=== PATIENT | female | born 1975 | race Caucasian/White ===

== ENCOUNTER 2018-01-27 10:54 | Emergency (ER) | payer MEDICARE, OTHER, SELFPAY ==
[2018-01-27 11:00] VITALS: BP 136/109; PULSE 104; RESP 20; TEMP 37; O2SAT 99
--- NOTE | 2018-01-27 11:25 | ED.URI ---
HPI - URI/Sore Throat General Chief Complaint: Upper Respiratory Symptoms Stated Complaint: RT FACE AND NECK PAIN, THINKS DEHYDRATED Time Seen by Provider: 01/27/18 11:08 Source: patient Mode of arrival: ambulatory Limitations: no limitations History of Present Illness HPI Narrative: Patient is a 42-year-old female who presents with right-sided neck pain. She has a history of multiple sclerosis and diabetes. She says that she has had some swelling in her face and passed out 1 time she had a high white count and was admitted with IV antibiotics and other time. She denies any sore throat or ear pain no dental pain. She has not had fever but she says she does make fever. Related Data Previous Rx's Medication Instructions Recorded clindamycin HCl 300 mg PO TID #21 cap 01/27/18 ibuprofen 800 mg PO Q8H PRN #30 tab 01/27/18 Allergies Allergy/AdvReac Type Severity Reaction Status Date / Time red (food color) Allergy Verified 01/27/18 11:11 Sulfa (Sulfonamide Allergy Verified 01/27/18 11:11 Antibiotics) artificial sweetners Allergy Uncoded 01/27/18 11:11 Review of Systems Review of Systems All systems reviewed & are unremarkable except as noted in HPI and below Constitutional Denies body ache(s), Denies chills, Reports fatigue and Denies fever(s) ENT Ears, Nose, Mouth, and Throat: Reports as per HPI, Reports facial pain (Mild right-sided swelling) and Reports sore throat Cardiovascular Denies chest pain, Denies irregular heart rhythm, Denies lightheadedness, Denies palpitations, Denies dyspnea, Denies dyspnea on exertion and Denies orthopnea Respiratory Denies cough, Denies dyspnea, Denies dyspnea on exertion and Denies wheezing Gastrointestinal Gastrointestinal: Denies abdominal pain, Denies change in bowel habits, Denies diarrhea, Denies nausea and Denies vomiting Musculoskeletal Denies back pain, Denies muscle weakness, Denies numbness and Denies tingling Integumentary/Breasts Denies pruritus, Denies erythema, Denies rash and Denies wounds Neurologic Denies numbness and Denies tingling Endocrine Reports fatigue and Denies palpitations Allergic/Immunologic Denies wheezing [facility] Medical History Chronically low serum potassium (Acute) Diabetes (Acute) Fibromyalgia (Acute) Low sodium levels (Acute) Low vitamin D level (Acute) Multiple sclerosis (Acute) Social History Smoking Status: Never smoker Exam Initial Vital Signs Initial Vital Signs: Vital Signs Temperature 98.6 F 01/27/18 11:00 Pulse Rate 104 H 01/27/18 11:00 Respiratory Rate 20 01/27/18 11:00 Blood Pressure 136/109 H 01/27/18 11:00 Pulse Oximetry 99 01/27/18 11:00 GENERAL: Well-appearing, well-nourished and in no acute distress. HEENT: Head atraumatic,EOMI, pupils reactive, mild right-sided facial swelling no erythema no dental caries or cavities no dental abscess PHARYNX: Mild erythema in no uvula deviation no swelling airway patent CARDIOVASCULAR: Regular rate and rhythm without murmurs, rubs or gallops. RESPIRATORY: Breath sounds equal bilaterally, no wheezes rales or rhonchi. ABDOMEN: Soft, nontender. Normoactive bowel sounds all 4 quadrants. No guarding or rebound. EXTREMITIES: Normal range of motion, no clubbing or edema. Neurovascularly intact NEUROLOGICAL: Alert and oriented x4.Normal gait and speech. Cranial nerves II through XII grossly intact. SKIN: Warm, dry, no laceration, no petechiae, no rashes or lesions. Course Orders Ordered: ED Orders 01/27/18 11:40 Basic Metabolic Panel Stat Complete Blood Count AUTO DIFF Stat Lactate (Lactic Acid) Stat 01/27/18 12:25 Urinalysis and Microscopic Stat Discontinued Medications Sodium Chloride (Normal Saline 0.9%) 1,000 mls @ 1,000 mls/hr IV BOLUS ONE Stop: 01/27/18 12:29 Last Infusion: 01/27/18 13:18 Dose: 0 mls/hr Admin: 01/27/18 11:50 Dose: 1,000 mls/hr Vital Signs - 8 hr 01/27/18 11:00 01/27/18 12:14 01/27/18 12:30 Temperature 98.6 F Pulse Rate 104 H 97 H 94 H Respiratory Rate 20 16 Blood Pressure 136/109 H Blood Pressure [Right Arm] 121/85 139/86 Pulse Oximetry 99 97 100 01/27/18 13:43 01/27/18 13:57 Temperature Pulse Rate 96 H 96 H Respiratory Rate 14 Blood Pressure 138/91 H Blood Pressure [Right Arm] 138/91 H Pulse Oximetry 98 97 MDM - URI/Sore Throat Lab Data Attestation: I reviewed the patient's lab results. Result diagrams: 01/27/18 11:40 01/27/18 11:40 Lab Results 01/27/18 01/27/18 01/27/18 Range/Units 11:40 11:40 11:40 WBC 9.6 (4.5-11.0) X10^3/uL RBC 5.13 (4.0-5.2) X10^6/uL Hgb 14.6 (12.0-16.0) g/dL Hct 43.1 (36-46) % MCV 84.0 (80-100) fL MCH 28.4 (26-34) PG MCHC 33.8 (30-36) % RDW 15.4 H (11.6-14.8) % Plt Count 320 (150-400) X10^3/uL Neut % (Auto) 48.6 L (50-75) % Lymph % (Auto) 43.4 H (25-40) % [place] % (Auto) 4.8 (3-14) % Eos % (Auto) 2.2 (2-4) % Baso % (Auto) 1.0 (0-2) % Neut # (Auto) 4700 (2960-1527) /uL Sodium 139 (137-145) mmol/L Potassium 3.8 (3.4-5.1) mmol/L Chloride 107 (98-107) mmol/L Carbon Dioxide 21 L (22-32) mmol/L BUN 11 (7-17) mg/dL Creatinine 0.50 L (0.52-1.04) mg/dL Estimated GFR > 60.0 (>60) mL/min BUN/Creatinine Ratio 22.0 (6-22) Glucose 236 H (70-100) mg/dL Lactate 2.6 H (0.7-2.1) mmol/L Calcium 8.8 (8.4-10.2) mg/dL Urine Color Urine Appearance Urine pH (4.5-8.0) Ur Specific [place] (1.000-1.035) Urine Protein (Negative) Urine Glucose (UA) (Normal) g/dL Urine Ketones (NEGATIVE) Urine Occult Blood (Negative) Urine Nitrate (Negative) Urine Bilirubin (NEGATIVE) Urine Urobilinogen (0.2) E.U./dL Ur Leukocyte Esterase (NEGATIVE) Urine RBC (0-5/HPF) Urine WBC (0-5/HPF) Ur Squamous Epith Cells Urine Bacteria (None) Ur Culture Indicated? Micro UA Comment 01/27/18 Range/Units 12:25 WBC (4.5-11.0) X10^3/uL RBC (4.0-5.2) X10^6/uL Hgb (12.0-16.0) g/dL Hct (36-46) % MCV (80-100) fL MCH (26-34) PG MCHC (30-36) % RDW (11.6-14.8) % Plt Count (150-400) X10^3/uL Neut % (Auto) (50-75) % Lymph % (Auto) (25-40) % [place] % (Auto) (3-14) % Eos % (Auto) (2-4) % Baso % (Auto) (0-2) % Neut # (Auto) (8195-8571) /uL Sodium (137-145) mmol/L Potassium (3.4-5.1) mmol/L Chloride (98-107) mmol/L Carbon Dioxide (22-32) mmol/L BUN (7-17) mg/dL Creatinine (0.52-1.04) mg/dL Estimated GFR (>60) mL/min BUN/Creatinine Ratio (6-22) Glucose (70-100) mg/dL Lactate (0.7-2.1) mmol/L Calcium (8.4-10.2) mg/dL Urine Color Yellow Urine Appearance Clear Urine pH 6.0 (4.5-8.0) Ur Specific [place] 1.025 (1.000-1.035) Urine Protein Negative (Negative) Urine Glucose (UA) 2+ (Normal) g/dL Urine Ketones Trace H (NEGATIVE) Urine Occult Blood Negative (Negative) Urine Nitrate Negative (Negative) Urine Bilirubin Negative (NEGATIVE) Urine Urobilinogen 0.2 (0.2) E.U./dL Ur Leukocyte Esterase Negative (NEGATIVE) Urine RBC None seen (0-5/HPF) Urine WBC 1-5/hpf (0-5/HPF) Ur Squamous Epith Cells 5-10 /hpf H Urine Bacteria None seen (None) Ur Culture Indicated? Cult not indicated Micro UA Comment Not Reportable Point of Care Testing Rapid Strep A Negative MDM Narrative Medical decision making narrative: Patient this time has a normal WBC count slightly elevated lactic acid but she is given 1 L of fluid. She does not appear toxic or septic at this time. I do not think at this time she needs any soft tissue imaging however if the swelling gets to be significantly worse she should return. Not convinced that she needs an antibiotic at this time I recommended that she hold off for a few days however I did give her prescription. Discharge Plan Departure Patient Disposition: Home Clinical Impression: Acute parotitis Discharge Date/Time: 01/27/18 13:59 Interventions: ED Discharge Assessment Last Done: 01/27/18 13:57 Instructions: Parotitis Activity Restrictions/Additional Instructions: *You have been diagnosed with prostatitis *What to do: At this time I would hold off on antibiotics for the next 2-3 days however the symptoms seem to get a little worse he may start *Continue to take medications as directed Clindamycin 300 mg 4 times a day for 7 days *Follow up with your primary care provider in 2-3 days *Return to ER if you should have increased swelling of face difficulty breathing, difficulty swallowing or any new, worsening or concerning symptoms Prescriptions: New clindamycin HCl 300 mg capsule 300 mg PO TID Qty: 21 RF: 0 ibuprofen 800 mg tablet 800 mg PO Q8H PRN (Reason: pain) Qty: 30 RF: 0 Referrals: Cedric Noel DO [Primary Care Provider] -
[2018-01-27] MEDS: SODIUM CHLORIDE 0.9% 1,000 ML 1000 ML IV (11:50)
[2018-01-27 11:55] LABS: Add Manual Diff / Slide Review NO; Eosinophils Percent Auto 2.2 % (2-4); Hematocrit 43.1 % (36-46); Hemoglobin 14.6 g/dL (12.0-16.0); Lymphocytes Percent Auto 43.4 % (25-40); Mean Corpuscular HGB Conc 33.8 % (30-36); Mean Corpuscular Hemoglobin 28.4 PG (26-34); Monocytes Percent Auto 4.8 % (3-14); Neutrophils Absolute Auto 4700 /uL (3000-5900); Neutrophils Percent Auto 48.6 % (50-75); Platelet Count 320 X10^3/uL (150-400); Red Blood Cell Count 5.13 X10^6/uL (4.0-5.2); Red Cell Distribution Width 15.4 % (11.6-14.8); White Blood Cell Count 9.6 X10^3/uL (4.5-11.0)
[2018-01-27 12:04] LABS: Blood Urea Nitrogen 11 mg/dL (7-17); Calcium 8.8 mg/dL (8.4-10.2); Carbon Dioxide 21 mmol/L (22-32); Chloride 107 mmol/L (98-107); Estimated Glomerular Filt Rate > 60.0 mL/min (>60); Glucose 236 mg/dL (70-100); HEMOLYSIS 44 (0-50); Lactate (Lactic Acid) 2.6 mmol/L (0.7-2.1); Potassium 3.8 mmol/L (3.4-5.1); Sodium 139 mmol/L (137-145)
--- NOTE | 2018-01-27 12:11 | PC.NURSE ---
Pt is swollen on right side of jaw. Reports this isn't normal for the jaw.
[2018-01-27 12:14] VITALS: BP 121/85; PULSE 97; RESP 16; O2SAT 97
[2018-01-27 12:28] LABS: Bacteria Urine None Seen; RBC Urine None Seen (0-5/HPF)
[2018-01-27 12:29] LABS: Appearance Urine UA CLEAR; Bilirubin Urine UA NEGATIVE (NEGATIVE); Color Urine UA YELLOW; Glucose Urine UA 2+ g/dL (Normal); Ketones Urine UA TRACE (NEGATIVE); Leukocyte Esterase Urine UA NEGATIVE (NEGATIVE); Nitrite Urine UA NEGATIVE (Negative); Occult Blood Urine UA NEGATIVE (Negative); Protein Urine UA NEGATIVE (Negative); Specific Gravity Urine UA 1.025 (1.000-1.035); Urobilinogen Urine UA 0.2 E.U./dL (0.2)
[2018-01-27 12:30] VITALS: BP 139/86; PULSE 94; O2SAT 100
[2018-01-27 12:37] LABS: Culture Indicated Urine Cult Not Indicated; Squamous Epithelial Cell Urine 5-10 /HPF; WBC Urine 1-5/HPF (0-5/HPF)
--- NOTE | 2018-01-27 13:03 | ED_ITS ---
HPI - URI/Sore Throat General Chief Complaint: Upper Respiratory Symptoms Stated Complaint: RT FACE AND NECK PAIN, THINKS DEHYDRATED Time Seen by Provider: 01/27/18 11:08 Source: patient Mode of arrival: ambulatory Limitations: no limitations History of Present Illness HPI Narrative: Patient is a 42-year-old female who presents with right-sided neck pain. She has a history of multiple sclerosis and diabetes. She says that she has had some swelling in her face and passed out 1 time she had a high white count and was admitted with IV antibiotics and other time. She denies any sore throat or ear pain no dental pain. She has not had fever but she says she does make fever. Related Data Previous Rx's Medication Instructions Recorded clindamycin HCl 300 mg PO TID #21 cap 01/27/18 ibuprofen 800 mg PO Q8H PRN #30 tab 01/27/18 Allergies Allergy/AdvReac Type Severity Reaction Status Date / Time red (food color) Allergy Verified 01/27/18 11:11 Sulfa (Sulfonamide Allergy Verified 01/27/18 11:11 Antibiotics) artificial sweetners Allergy Uncoded 01/27/18 11:11 Review of Systems Review of Systems All systems reviewed & are unremarkable except as noted in HPI and below Constitutional Denies body ache(s), Denies chills, Reports fatigue and Denies fever(s) ENT Ears, Nose, Mouth, and Throat: Reports as per HPI, Reports facial pain (Mild right-sided swelling) and Reports sore throat Cardiovascular Denies chest pain, Denies irregular heart rhythm, Denies lightheadedness, Denies palpitations, Denies dyspnea, Denies dyspnea on exertion and Denies orthopnea Respiratory Denies cough, Denies dyspnea, Denies dyspnea on exertion and Denies wheezing Gastrointestinal Gastrointestinal: Denies abdominal pain, Denies change in bowel habits, Denies diarrhea, Denies nausea and Denies vomiting Musculoskeletal Denies back pain, Denies muscle weakness, Denies numbness and Denies tingling Integumentary/Breasts Denies pruritus, Denies erythema, Denies rash and Denies wounds Neurologic Denies numbness and Denies tingling Endocrine Reports fatigue and Denies palpitations Allergic/Immunologic Denies wheezing [facility] Medical History Chronically low serum potassium (Acute) Diabetes (Acute) Fibromyalgia (Acute) Low sodium levels (Acute) Low vitamin D level (Acute) Multiple sclerosis (Acute) Social History Smoking Status: Never smoker Exam Initial Vital Signs Initial Vital Signs: Vital Signs Temperature 98.6 F 01/27/18 11:00 Pulse Rate 104 H 01/27/18 11:00 Respiratory Rate 20 01/27/18 11:00 Blood Pressure 136/109 H 01/27/18 11:00 Pulse Oximetry 99 01/27/18 11:00 GENERAL: Well-appearing, well-nourished and in no acute distress. HEENT: Head atraumatic,EOMI, pupils reactive, mild right-sided facial swelling no erythema no dental caries or cavities no dental abscess PHARYNX: Mild erythema in no uvula deviation no swelling airway patent CARDIOVASCULAR: Regular rate and rhythm without murmurs, rubs or gallops. RESPIRATORY: Breath sounds equal bilaterally, no wheezes rales or rhonchi. ABDOMEN: Soft, nontender. Normoactive bowel sounds all 4 quadrants. No guarding or rebound. EXTREMITIES: Normal range of motion, no clubbing or edema. Neurovascularly intact NEUROLOGICAL: Alert and oriented x4.Normal gait and speech. Cranial nerves II through XII grossly intact. SKIN: Warm, dry, no laceration, no petechiae, no rashes or lesions. Course Orders Ordered: ED Orders 01/27/18 11:40 Basic Metabolic Panel Stat Complete Blood Count AUTO DIFF Stat Lactate (Lactic Acid) Stat 01/27/18 12:25 Urinalysis and Microscopic Stat Discontinued Medications Sodium Chloride (Normal Saline 0.9%) 1,000 mls @ 1,000 mls/hr IV BOLUS ONE Stop: 01/27/18 12:29 Last Infusion: 01/27/18 13:18 Dose: 0 mls/hr Admin: 01/27/18 11:50 Dose: 1,000 mls/hr Vital Signs - 8 hr 01/27/18 11:00 01/27/18 12:14 01/27/18 12:30 Temperature 98.6 F Pulse Rate 104 H 97 H 94 H Respiratory Rate 20 16 Blood Pressure 136/109 H Blood Pressure [Right Arm] 121/85 139/86 Pulse Oximetry 99 97 100 01/27/18 13:43 01/27/18 13:57 Temperature Pulse Rate 96 H 96 H Respiratory Rate 14 Blood Pressure 138/91 H Blood Pressure [Right Arm] 138/91 H Pulse Oximetry 98 97 MDM - URI/Sore Throat Lab Data Attestation: I reviewed the patient's lab results. Result diagrams: 01/27/18 11:40 01/27/18 11:40 Lab Results 01/27/18 01/27/18 01/27/18 Range/Units 11:40 11:40 11:40 WBC 9.6 (4.5-11.0) X10^3/uL RBC 5.13 (4.0-5.2) X10^6/uL Hgb 14.6 (12.0-16.0) g/dL Hct 43.1 (36-46) % MCV 84.0 (80-100) fL MCH 28.4 (26-34) PG MCHC 33.8 (30-36) % RDW 15.4 H (11.6-14.8) % Plt Count 320 (150-400) X10^3/uL Neut % (Auto) 48.6 L (50-75) % Lymph % (Auto) 43.4 H (25-40) % [place] % (Auto) 4.8 (3-14) % Eos % (Auto) 2.2 (2-4) % Baso % (Auto) 1.0 (0-2) % Neut # (Auto) 4700 (3886-7270) /uL Sodium 139 (137-145) mmol/L Potassium 3.8 (3.4-5.1) mmol/L Chloride 107 (98-107) mmol/L Carbon Dioxide 21 L (22-32) mmol/L BUN 11 (7-17) mg/dL Creatinine 0.50 L (0.52-1.04) mg/dL Estimated GFR > 60.0 (>60) mL/min BUN/Creatinine Ratio 22.0 (6-22) Glucose 236 H (70-100) mg/dL Lactate 2.6 H (0.7-2.1) mmol/L Calcium 8.8 (8.4-10.2) mg/dL Urine Color Urine Appearance Urine pH (4.5-8.0) Ur Specific [place] (1.000-1.035) Urine Protein (Negative) Urine Glucose (UA) (Normal) g/dL Urine Ketones (NEGATIVE) Urine Occult Blood (Negative) Urine Nitrate (Negative) Urine Bilirubin (NEGATIVE) Urine Urobilinogen (0.2) E.U./dL Ur Leukocyte Esterase (NEGATIVE) Urine RBC (0-5/HPF) Urine WBC (0-5/HPF) Ur Squamous Epith Cells Urine Bacteria (None) Ur Culture Indicated? Micro UA Comment 01/27/18 Range/Units 12:25 WBC (4.5-11.0) X10^3/uL RBC (4.0-5.2) X10^6/uL Hgb (12.0-16.0) g/dL Hct (36-46) % MCV (80-100) fL MCH (26-34) PG MCHC (30-36) % RDW (11.6-14.8) % Plt Count (150-400) X10^3/uL Neut % (Auto) (50-75) % Lymph % (Auto) (25-40) % [place] % (Auto) (3-14) % Eos % (Auto) (2-4) % Baso % (Auto) (0-2) % Neut # (Auto) (1407-3769) /uL Sodium (137-145) mmol/L Potassium (3.4-5.1) mmol/L Chloride (98-107) mmol/L Carbon Dioxide (22-32) mmol/L BUN (7-17) mg/dL Creatinine (0.52-1.04) mg/dL Estimated GFR (>60) mL/min BUN/Creatinine Ratio (6-22) Glucose (70-100) mg/dL Lactate (0.7-2.1) mmol/L Calcium (8.4-10.2) mg/dL Urine Color Yellow Urine Appearance Clear Urine pH 6.0 (4.5-8.0) Ur Specific [place] 1.025 (1.000-1.035) Urine Protein Negative (Negative) Urine Glucose (UA) 2+ (Normal) g/dL Urine Ketones Trace H (NEGATIVE) Urine Occult Blood Negative (Negative) Urine Nitrate Negative (Negative) Urine Bilirubin Negative (NEGATIVE) Urine Urobilinogen 0.2 (0.2) E.U./dL Ur Leukocyte Esterase Negative (NEGATIVE) Urine RBC None seen (0-5/HPF) Urine WBC 1-5/hpf (0-5/HPF) Ur Squamous Epith Cells 5-10 /hpf H Urine Bacteria None seen (None) Ur Culture Indicated? Cult not indicated Micro UA Comment Not Reportable Point of Care Testing Rapid Strep A Negative MDM Narrative Medical decision making narrative: Patient this time has a normal WBC count slightly elevated lactic acid but she is given 1 L of fluid. She does not appear toxic or septic at this time. I do not think at this time she needs any soft tissue imaging however if the swelling gets to be significantly worse she should return. Not convinced that she needs an antibiotic at this time I recommended that she hold off for a few days however I did give her prescription. Discharge Plan Departure Patient Disposition: Home Clinical Impression: Acute parotitis Discharge Date/Time: 01/27/18 13:59 Interventions: ED Discharge Assessment Last Done: 01/27/18 13:57 Instructions: Parotitis Activity Restrictions/Additional Instructions: *You have been diagnosed with prostatitis *What to do: At this time I would hold off on antibiotics for the next 2-3 days however the symptoms seem to get a little worse he may start *Continue to take medications as directed Clindamycin 300 mg 4 times a day for 7 days *Follow up with your primary care provider in 2-3 days *Return to ER if you should have increased swelling of face difficulty breathing , difficulty swallowing or any new, worsening or concerning symptoms Prescriptions: New clindamycin HCl 300 mg capsule 300 mg PO TID Qty: 21 RF: 0 ibuprofen 800 mg tablet 800 mg PO Q8H PRN (Reason: pain) Qty: 30 RF: 0 Referrals: Cedric Noel DO [Primary Care Provider] -
[2018-01-27 13:43] VITALS: BP 138/91; PULSE 96; O2SAT 98
[2018-01-27 13:57] VITALS: BP 138/91; PULSE 96; RESP 14; O2SAT 97
[2018-01-27 15:50] LABS: Reflexed Lactate in 2 Hours Y
== END 2018-01-27 13:59 | disposition home or self-care (01) ==
PROVIDERS: Emergency Provider Emergency Medicine; Family Provider Family Medicine; PCP Family Medicine
DX: K11.21 Acute sialoadenitis (principal)
CPT/HCPCS: 36591; 80048; 81001; 83605; 85025; 87880; 96360; 99283; 99284

== ENCOUNTER 2018-02-06 16:57 | Inpatient (IN) | payer MEDICARE, OTHER, SELFPAY ==
[2018-02-06 17:09] VITALS: BP 157/97; PULSE 113; RESP 20; TEMP 37; O2SAT 98
--- NOTE | 2018-02-06 19:04 | ED.SKABFB ---
HPI - Skin/Abscess/Foreign Bdy General Chief complaint: Skin/Abscess/Foreign Body Stated complaint: ORAL PAIN AND SWELLING Time Seen by Provider: 02/06/18 18:18 Source: patient Mode of arrival: ambulatory Limitations: no limitations History of Present Illness HPI narrative: patient is a 42-year-old female with a history of diabetes seen here in the emergency department a couple days ago for right-sided facial swelling. Was diagnosed with parotitis. Was sent home on antibiotics. she states that she has taken those antibiotics as directed. Follow up with her primary care doctor today. She noticed that the swelling the right side of her face was worsening in her primary doctor recommended a CT scan. She came here for this CT scan and further evaluation. Patient has had this issue in 2015. she stated that it resolved after antibiotics. Related Data Previous Rx's Medication Instructions Recorded clindamycin HCl 300 mg PO TID #21 cap 01/27/18 ibuprofen 800 mg PO Q8H PRN #30 tab 01/27/18 Allergies Allergy/AdvReac Type Severity Reaction Status Date / Time red (food color) Allergy Verified 01/27/18 11:11 Sulfa (Sulfonamide Allergy Verified 01/27/18 11:11 Antibiotics) artificial sweetners Allergy Uncoded 01/27/18 11:11 Review of Systems Constitutional Reports fever(s), Denies headache(s), Denies lethargy and Denies malaise Eyes Denies blurry vision and Denies diplopia ENT Ears, Nose, Mouth, and Throat: Denies vertigo, Denies headache(s), Reports mouth pain, Reports neck mass, Reports neck pain, Denies nose pain, Denies post nasal drip, Denies sinus pain, Denies sinus pressure, Denies sore throat, Reports throat swelling and Denies tongue swelling Cardiovascular Denies chest pain and Denies dyspnea Respiratory Denies cough and Denies dyspnea Musculoskeletal Denies myalgias, Denies arthralgias and Reports neck pain Integumentary/Breasts Denies lesions and Denies rash Neurologic Denies vertigo and Denies headache(s) Endocrine Denies flushing, Denies polydipsia and Denies polyuria Hematologic/Lymphatic Comments: Not on anticoagulation Allergic/Immunologic Denies urticaria, Reports throat swelling and Denies tongue swelling [facility] Medical History Chronically low serum potassium (Acute) Diabetes (Acute) Fibromyalgia (Acute) Low sodium levels (Acute) Low vitamin D level (Acute) Multiple sclerosis (Acute) Surgical History No pertinent past surgical history (Acute) Social History marital status: Smoking Status: Never smoker Exam Initial Vital Signs Initial Vital Signs: Vital Signs Temperature 98.6 F 02/06/18 17:09 Pulse Rate 113 H 02/06/18 17:09 Respiratory Rate 20 02/06/18 17:09 Blood Pressure 157/97 H 02/06/18 17:09 Pulse Oximetry 98 02/06/18 17:09 Const General: cooperative, healthy appearing, comfortable, well developed, well groomed and No acute distress Orientation: alert, awake and oriented x3 HENMT Head: normal to inspection, normocephalic and atraumatic Ears: hearing grossly normal bilaterally Nose: external nose normal Face and sinus: tenderness on the right and other ( patient with swelling and tenderness over the right parotid gland. No overlying skin cellulitis.) Mouth: oral mucosae normal and tongue normal Teeth and gingiva: dentition normal Resp Effort & Inspection: normal respiratory effort Auscultation: clear to auscultation bilaterally Cardio Rate: tachycardic Rhythm: regular rhythm GI Inspection: non-distended Skin Lesions: no lesions Rashes: no rashes Neuro General: alert, awake and oriented x3 Cognition: normal cognition Speech: speech normal Extrem General: normal to inspection and capillary refill normal Psych Appearance: grossly normal and well kempt Course Orders Ordered: ED Orders 02/06/18 19:11 CT facial bones w con Stat 02/06/18 19:30 Basic Metabolic Panel Stat C-Reactive Protein Quant Stat Complete Blood Count AUTO DIFF Stat Erythrocyte Sedimentation Rate Stat Lactate (Lactic Acid) Stat Procalcitonin Stat 02/06/18 20:40 Blood Culture Stat Sodium Chloride (Normal Saline 0.9%) 2,340.54 mls @ 780.18 mls/hr 30 ml/kg infuse over 3 hr (2340.54 ml) IV CONT YULIANA Vancomycin HCl/Dextrose (Vancomycin) 1,000 mg in 200 mls @ 200 mls/hr IV NOW ONE Stop: 02/06/18 21:53 Metronidazole (Flagyl) 500 mg in 100 mls @ 100 mls/hr IV NOW ONE Stop: 02/06/18 21:53 Last Admin: 02/06/18 21:03 Dose: 100 mls/hr Discontinued Medications Diphenhydramine HCl (Benadryl) 50 mg IV NOW ONE Stop: 02/06/18 19:14 Last Admin: 02/06/18 19:43 Dose: 50 mg Hydrocortisone (Solu-Cortef) 100 mg IV NOW ONE Stop: 02/06/18 19:14 Last Admin: 02/06/18 19:43 Dose: 100 mg Sodium Chloride (Normal Saline 0.9%) 1,000 mls @ 1,000 mls/hr IV BOLUS ONE Stop: 02/06/18 20:10 Last Admin: 02/06/18 19:43 Dose: 1,000 mls/hr Vital Signs - 8 hr 02/06/18 17:09 02/06/18 20:17 02/06/18 21:16 Temperature 98.6 F 98.2 F Pulse Rate 113 H 106 H 101 H Respiratory Rate 20 15 16 Blood Pressure 157/97 H Blood Pressure [Left Arm] 151/100 H 143/96 H Pulse Oximetry 98 100 100 MDM - Skin/Abscess/Foreign Bdy Lab Data Attestation: I reviewed the patient's lab results. Result diagrams: 02/06/18 19:30 02/06/18 19:30 Lab Results 02/06/18 02/06/18 02/06/18 Range/Units 19:30 19:30 19:30 WBC 11.8 H (4.5-11.0) X10^3/uL RBC 4.98 (4.0-5.2) X10^6/uL Hgb 13.9 (12.0-16.0) g/dL Hct 42.3 (36-46) % MCV 84.9 (80-100) fL MCH 27.9 (26-34) PG MCHC 32.9 (30-36) % RDW 15.5 H (11.6-14.8) % Plt Count 304 (150-400) X10^3/uL Neut % (Auto) 52.6 (50-75) % Lymph % (Auto) 40.3 H (25-40) % [place] % (Auto) 4.5 (3-14) % Eos % (Auto) 1.8 L (2-4) % Baso % (Auto) 0.8 (0-2) % Neut # (Auto) 6200 H (2429-9146) /uL ESR 25 H (0-20) MM/HR Sodium 140 (137-145) mmol/L Potassium 3.8 (3.4-5.1) mmol/L Chloride 105 (98-107) mmol/L Carbon Dioxide 19 L (22-32) mmol/L BUN 12 (7-17) mg/dL Creatinine 0.60 (0.52-1.04) mg/dL Estimated GFR > 60.0 (>60) mL/min BUN/Creatinine Ratio 20.0 (6-22) Glucose 325 H (70-100) mg/dL Lactate (0.7-2.1) mmol/L Calcium 9.2 (8.4-10.2) mg/dL C-Reactive Protein 0.9 (<1.0) mg/dL Procalcitonin < 0.05 (<0.5) ng/mL 02/06/18 Range/Units 19:30 WBC (4.5-11.0) X10^3/uL RBC (4.0-5.2) X10^6/uL Hgb (12.0-16.0) g/dL Hct (36-46) % MCV (80-100) fL MCH (26-34) PG MCHC (30-36) % RDW (11.6-14.8) % Plt Count (150-400) X10^3/uL Neut % (Auto) (50-75) % Lymph % (Auto) (25-40) % [place] % (Auto) (3-14) % Eos % (Auto) (2-4) % Baso % (Auto) (0-2) % Neut # (Auto) (5766-6108) /uL ESR (0-20) MM/HR Sodium (137-145) mmol/L Potassium (3.4-5.1) mmol/L Chloride (98-107) mmol/L Carbon Dioxide (22-32) mmol/L BUN (7-17) mg/dL Creatinine (0.52-1.04) mg/dL Estimated GFR (>60) mL/min BUN/Creatinine Ratio (6-22) Glucose (70-100) mg/dL Lactate 3.3 H (0.7-2.1) mmol/L Calcium (8.4-10.2) mg/dL C-Reactive Protein (<1.0) mg/dL Procalcitonin (<0.5) ng/mL Imaging Data Facial CT: Radiologist's impression: [address] [address] [address] Scan Report Signed Patient: Josie Silvestre MMR#: [id number] : 1975Acct:[id number] Age/Sex: 42 / FDate of Service: 02/06/18 Loc: ED Accession Number: [id number] Procedure: CT facial bones w con Ordering Provider: Brandon Lr D.O. PROCEDURE: CT FACIAL BONES W CON INDICATIONS: Right side facial swelling concern for abscess TECHNIQUE: After the administration of intravenous contrast, 2.5 mm axial sections acquired from the mid-neck to the frontal sinuses, with coronal and sagittal reformats. For radiation dose reduction, the following was used: automated exposure control, adjustment of mA and/or kV according to patient size. COMPARISON: None. FINDINGS: Image quality: Excellent. Soft tissues: There is mild asymmetric enhancement and slight asymmetric fullness of the right parotid gland. No discrete abscess collection or dilated duct identified. No discrete stones. No discrete soft tissue abscess identified elsewhere. No enlarged lymph nodes. The submandibular glands appear symmetric and within normal limits. No discrete thyroid nodule identified. Vascular: Visualized vascular structures appear patent throughout. Bony vascular foramina and canals appear normal. Bones: Facial bones appear intact, without fractures, erosions, or destruction. Visualized portions of the skull base and auditory canals also appear normal. Sinuses: Paranasal sinuses are aerated without fluid levels, mucosal thickening, or mucoceles. Mastoid air cells are aerated. IMPRESSION: 1. Slight asymmetric enhancement and fullness of the right parotid gland suggestive of mild parotiditis. No discrete abscess collection, stones, or dilated duct identified. Dictated by: Ever Cisneros M.D. on 02/06/2018 at 20:40 Approved by: Ever Cisneros M.D. on 02/06/2018 at 20:43 [facility] Narrative Medical decision making narrative: patient tachycardic, has an elevated white blood cell count, has an elevated lactate. Has been on clindamycin at home without improvement and with the patient states has worsening of her right-sided facial swelling. No definitive abscess on the CT scan however does appear to be parotitis. Patient was given antibiotics here in the emergency department. Is given fluids here in the emergency department. Patient has no airway issues. Discussed case with the night hospital provider who will admit for continued evaluation treatment. Discharge Plan Departure Patient Disposition: Admitted As Inpatient Clinical Impression: Acute parotitis
--- NOTE | 2018-02-06 19:11 | DI.CT.S_ITS ---
PROCEDURE: CT FACIAL BONES W CON INDICATIONS: Right side facial swelling concern for abscess TECHNIQUE: After the administration of intravenous contrast, 2.5 mm axial sections acquired from the mid-neck to the frontal sinuses, with coronal and sagittal reformats. For radiation dose reduction, the following was used: automated exposure control, adjustment of mA and/or kV according to patient size. COMPARISON: None. FINDINGS: Image quality: Excellent. Soft tissues: There is mild asymmetric enhancement and slight asymmetric fullness of the right parotid gland. No discrete abscess collection or dilated duct identified. No discrete stones. No discrete soft tissue abscess identified elsewhere. No enlarged lymph nodes. The submandibular glands appear symmetric and within normal limits. No discrete thyroid nodule identified. Vascular: Visualized vascular structures appear patent throughout. Bony vascular foramina and canals appear normal. Bones: Facial bones appear intact, without fractures, erosions, or destruction. Visualized portions of the skull base and auditory canals also appear normal. Sinuses: Paranasal sinuses are aerated without fluid levels, mucosal thickening, or mucoceles. Mastoid air cells are aerated. IMPRESSION: 1. Slight asymmetric enhancement and fullness of the right parotid gland suggestive of mild parotiditis. No discrete abscess collection, stones, or dilated duct identified. Dictated by: Ever Cisneros M.D. on 02/06/2018 at 20:40 Approved by: Ever Cisneros M.D. on 02/06/2018 at 20:43
[2018-02-06] MEDS: SODIUM CHLORIDE 0.9% 1,000 ML 1000 ML IV (19:43)
[2018-02-06] MEDS: diphenhydrAMINE 50 MG/ML VIAL IV (19:43)
[2018-02-06] MEDS: HYDROCORTISONE 100 MG/2 ML VIAL IV (19:43)
[2018-02-06 19:48] LABS: Add Manual Diff / Slide Review NO; Basophils Percent Auto 0.8 % (0-2); Eosinophils Percent Auto 1.8 % (2-4); Hematocrit 42.3 % (36-46); Hemoglobin 13.9 g/dL (12.0-16.0); Lymphocytes Percent Auto 40.3 % (25-40); Mean Corpuscular HGB Conc 32.9 % (30-36); Mean Corpuscular Hemoglobin 27.9 PG (26-34); Mean Corpuscular Volume 84.9 fL (80-100); Monocytes Percent Auto 4.5 % (3-14); Neutrophils Absolute Auto 6200 /uL (3000-5900); Neutrophils Percent Auto 52.6 % (50-75); Platelet Count 304 X10^3/uL (150-400); Red Blood Cell Count 4.98 X10^6/uL (4.0-5.2); Red Cell Distribution Width 15.5 % (11.6-14.8); White Blood Cell Count 11.8 X10^3/uL (4.5-11.0)
[2018-02-06 20:01] LABS: Lactate (Lactic Acid) 3.3 mmol/L (0.7-2.1)
[2018-02-06 20:04] LABS: Blood Urea Nitrogen 12 mg/dL (7-17); C-Reactive Protein Quant 0.9 mg/dL (<1.0); Calcium 9.2 mg/dL (8.4-10.2); Carbon Dioxide 19 mmol/L (22-32); Chloride 105 mmol/L (98-107); Estimated Glomerular Filt Rate > 60.0 mL/min (>60); Glucose 325 mg/dL (70-100); HEMOLYSIS < 15 (0-50); Potassium 3.8 mmol/L (3.4-5.1); Sodium 140 mmol/L (137-145)
[2018-02-06 20:17] VITALS: BP 151/100; PULSE 106; RESP 15; TEMP 36.8; O2SAT 100
[2018-02-06 20:24] LABS: Erythrocyte Sedimentation Rate 25 MM/HR (0-20)
[2018-02-06 20:45] LABS: Procalcitonin < 0.05 ng/mL (<0.5)
[2018-02-06] MEDS: metroNIDAZOLE 500 MG/100 ML PIGGYBACK 100 MG IV (21:03)
[2018-02-06 21:16] VITALS: BP 143/96; BP 157/97; PULSE 101; RESP 16; TEMP 36.8; O2SAT 100
[2018-02-06] MEDS: VANCOMYCIN 1,000 MG/200 ML FROZ.PIGGY 200 MG IV (22:05)
[2018-02-06 22:16] VITALS: BP 153/95; PULSE 107; RESP 16; O2SAT 100
[2018-02-06 22:50] VITALS: BP 164/101; PULSE 104; RESP 19; TEMP 36.8; O2SAT 98
[2018-02-06 23:00] VITALS: BMI 32.5
--- NOTE | 2018-02-06 23:23 | PM.HP.1 ---
History of Present Illness Date Patient Seen: 02/06/18 Time Patient Seen: 23:24 Chief complaint: ORAL PAIN AND SWELLING Narrative: The patient is a 42-year-old female w/ PMH Significant for MS, fibromyalgia, HTN, DM, obesity, chronic migraines, vitamin D insufficiency, and anxiety / depression. Presented to the ED upon the recommendation of her PCP for a facial CT scan. Patient was seen in the ED on 01/27 with right-sided neck pain, consequently diagnosed with acute parotitis and discharged home on a course of clindamycin. There has been minimal improvement in her symptoms, infarct the degree of swelling is noted to be worse. Reports fever at home of 101F. Denies difficulty w/ mastication or swallowing. Able to manage secretions. Patient reports adherence with antimicrobial regimen. Patient has had a similar event in the past and was successfully treated with antibiotics. Denies recent illness or infection. She does have MS and on immunosuppression w/ Tysabri (natalizumab) infusions, last Jan 17. Believes may be having a mild flare. Recently suffering from sinus infection. No oral or dental problems. On CPAP and having difficulty maintaining her CPAP clean. Face CT revealed asymmetric enhancement and fullness of the right parotid gland suggestive of mild parotitis. No discrete abscess collection, stones, or dilated duct identified. Also, initial lab work consistent w/ sepsis criteria. Received IVF per sepsis protocol, vancomycin, and metronidazole in ED. Also, received benadryl and hydrocortisone. Patient History Medical History Chronically low serum potassium (Acute) Diabetes (Acute) Fibromyalgia (Acute) Low sodium levels (Acute) Low vitamin D level (Acute) Multiple sclerosis (Acute) Surgical History No pertinent past surgical history (Acute) Family & Social History Family History: Reviewed 02/06/18 by GILSON Zavala Social History: Prior Living Arrangements House Safety & Behavioral: Feels Safe in Current Yes Environment Been Physically Hurt or No Threatened By a Person Suicidal Ideation Description None Suicide Plan Description No Plan Tobacco & Substance use: Smoking Status Never smoker alcohol intake frequency holiday/special occasion Substance Use Type does not use Meds Home Medications Medication Instructions Recorded Confirmed Type clindamycin HCl 300 mg PO TID #21 cap 01/27/18 02/07/18 Rx ibuprofen 800 mg PO Q8H PRN #30 tab 01/27/18 02/07/18 Rx atorvastatin 1 tab PO DAILY 02/07/18 02/07/18 History baclofen 1 tab PO DAILY 02/07/18 02/07/18 History diazepam 1 tab PO DAILY 02/07/18 02/07/18 History eletriptan 1 tab PO PRN PRN 02/07/18 02/07/18 History empagliflozin [Jardiance] 1 tab PO DAILY 02/07/18 02/07/18 History fluconazole 1 tab PO PRN PRN 02/07/18 02/07/18 History furosemide 1 tab PO DAILY 02/07/18 02/07/18 History gabapentin 1 tab PO TID 02/07/18 02/07/18 History hydrochlorothiazide 12.5 mg PO DAILY 02/07/18 02/07/18 History levothyroxine 1 tab PO DAILY 02/07/18 02/07/18 History meclizine 1 tab PO DAILY 02/07/18 02/07/18 History metoclopramide HCl 1 tab PO DAILY 02/07/18 02/07/18 History milnacipran [Savella] 1 tab PO DAILY 02/07/18 02/07/18 History topiramate 1 tab PO DAILY 02/07/18 02/07/18 History triamcinolone acetonide See Label Instructions .ROUTE 02/07/18 02/07/18 History .COMPLEX zolpidem 1 tab PO PRN PRN 02/07/18 02/07/18 History Allergies Allergy/AdvReac Type Severity Reaction Status Date / Time red (food color) Allergy Verified 01/27/18 11:11 Sulfa (Sulfonamide Allergy Verified 01/27/18 11:11 Antibiotics) artificial sweetners Allergy Uncoded 01/27/18 11:11 Review of Systems Review of Systems All systems reviewed & are unremarkable except as noted in HPI and below Exam Vital Signs (past 8 hours): - 02/06/18 17:09 02/06/18 20:17 02/06/18 21:16 Temperature 98.6 F 98.2 F 98.2 F Pulse Rate 113 H 106 H 101 H Respiratory Rate 20 15 16 Blood Pressure 157/97 H 157/97 H Blood Pressure [Left Arm] 151/100 H 143/96 H Pulse Oximetry 98 100 100 02/06/18 22:16 02/06/18 22:50 Temperature 98.3 F Pulse Rate 107 H 104 H Respiratory Rate 16 19 Blood Pressure 164/101 H Blood Pressure [Left Arm] 153/95 H Pulse Oximetry 100 98 Oxygen Delivery Method Room Air Narrative Exam Narrative: Constitutional: NAD Neurologic: AOx3, no focal neurological deficits Head: NC, AT Eyes: Pupils equal and reactive, gaze conjugate Ears: external ears normal, no otorrhea Nose: external nose normal, no rhinorrhea or epistaxis Throat: dry MM, oropharynx w/o exudate Face: swelling over parotid gland extending to mandible; facial nerves not appear to be compromised Neck: Swelling present, anterior / potentially mild cervical lymphadenopathy Chest / Respiratory: equal chest rise, unlabored respiratory effort, CTAB tenderness along right axillary lymphnodes, no overt lymphadenopathy CV: S1S2, no murmur Abdomen / GI: round, central obesity, NT, ND, + BS, no organomegaly : no suprapubic tenderness, no CVA Peripheral / Vascular: warm to touch, DP and PT pulses palpable, no edema Musc: full ROM of upper and lower extremities, adequate muscle tone Skin: no ecchymosis or suspicious lesions / ulcers Objective Labs Result Diagrams: 02/06/18 19:30 02/06/18 19:30 Labs: Laboratory Results - last 24 hr 02/06/18 02/06/18 02/06/18 19:30 19:30 19:30 WBC 11.8 H RBC 4.98 Hgb 13.9 Hct 42.3 MCV 84.9 MCH 27.9 MCHC 32.9 RDW 15.5 H Plt Count 304 Neut % (Auto) 52.6 Lymph % (Auto) 40.3 H [place] % (Auto) 4.5 Eos % (Auto) 1.8 L Baso % (Auto) 0.8 Neut # (Auto) 6200 H ESR 25 H Sodium 140 Potassium 3.8 Chloride 105 Carbon Dioxide 19 L BUN 12 Creatinine 0.60 Estimated GFR > 60.0 BUN/Creatinine Ratio 20.0 Glucose 325 H Lactate Calcium 9.2 C-Reactive Protein 0.9 Procalcitonin < 0.05 02/06/18 19:30 WBC RBC Hgb Hct MCV MCH MCHC RDW Plt Count Neut % (Auto) Lymph % (Auto) [place] % (Auto) Eos % (Auto) Baso % (Auto) Neut # (Auto) ESR Sodium Potassium Chloride Carbon Dioxide BUN Creatinine Estimated GFR BUN/Creatinine Ratio Glucose Lactate 3.3 H Calcium C-Reactive Protein Procalcitonin Assessment & Plan Plan: Assessment/Plan Narrative: Parotitis Viral vs bacterial. Meets sepsis criteria. Immunocompromised. Prior h/o parotitis (2014) Failed outpatient tx w/ clindamycin, potentially related to absorption having diarrhea; h/o IBS, gastroparesis - vancomycin / cefepime / flagyl regimen; added cefepime as she is immunocompromised - will start probiotic - blood cx pending - supportive care: Antiemetics and pain control, prn - avoid meds that diminish salivary flow or volume depletion (holding lasix and hctz) - consider surgical management of this becomes a problem for the patient Sepsis 2/2 parotiditis. Sepsis is a rare complication of parotitis Received 30 ml/kg IV fluid resuscitation in ED. Received a dose of vancomycin and Flagyl. 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 Patient wishes to be full code. is identified as a surrogate decision maker. Home medications reviewed and reconciled. Quality VTE Deep Vein Thrombosis/Pulmonary Embolism Present on Admission: No
[2018-02-06 23:45] LABS: Reflexed Lactate in 2 Hours Y
[2018-02-07] VITALS (10 sets, daily range): BP systolic 133–151; BP diastolic 88–97; PULSE 101–121; RESP 18–20; TEMP 36.3–37.2; O2SAT 96–98
[2018-02-07 00:18] LABS: Lactate 2HR (Lactic Acid Rflx) 2.5 mmol/L (0.7-2.1)
[2018-02-07] MEDS: CEFEPIME 2 GM in SODIUM CHLORIDE 0.9% 100 ML 200 ML IV ×2 (02:24→14:50)
[2018-02-07] MEDS: GABAPENTIN 300 MG CAPSULE PO ×4 (02:24→20:41)
[2018-02-07] MEDS: KETOROLAC 30 MG/ML VIAL IV (02:24)
[2018-02-07] MEDS: BACLOFEN 10 MG TABLET 5 MG PO ×4 (02:26→20:41)
[2018-02-07] MEDS: ONDANSETRON 4 MG/2 ML INJ IV ×3 (02:28→14:55)
[2018-02-07 05:18] LABS: Add Manual Diff / Slide Review NO; Eosinophils Percent Auto 0.6 % (2-4); Hematocrit 36.9 % (36-46); Hemoglobin 12.4 g/dL (12.0-16.0); Lymphocytes Percent Auto 30.5 % (25-40); Mean Corpuscular HGB Conc 33.7 % (30-36); Mean Corpuscular Hemoglobin 28.7 PG (26-34); Mean Corpuscular Volume 85.2 fL (80-100); Monocytes Percent Auto 4.1 % (3-14); Neutrophils Absolute Auto 7600 /uL (3000-5900); Neutrophils Percent Auto 63.8 % (50-75); Platelet Count 268 X10^3/uL (150-400); Red Blood Cell Count 4.33 X10^6/uL (4.0-5.2); Red Cell Distribution Width 15.4 % (11.6-14.8)
[2018-02-07 05:19] LABS: Alanine Aminotransferase 15 IU/L (9-52); Albumin 3.2 g/dL (3.5-5.0); Albumin Globulin Ratio 1.4 (1.0-2.8); Alkaline Phosphatase 69 U/L (38-126); Aspartate Aminotransferase 15 IU/L (14-36); Bilirubin Total 0.3 mg/dL (0.2-1.3); Blood Urea Nitrogen 11 mg/dL (7-17); Calcium 8.2 mg/dL (8.4-10.2); Carbon Dioxide 17 mmol/L (22-32); Chloride 108 mmol/L (98-107); Estimated Glomerular Filt Rate > 60.0 mL/min (>60); Globulin 2.3 g/dL (1.7-4.1); Glucose 302 mg/dL (70-100); HEMOLYSIS 16 (0-50); Magnesium 1.4 mg/dL (1.6-2.3); Total Protein 5.5 g/dL (6.3-8.2)
[2018-02-07 05:21] LABS: Lactate (Lactic Acid) 3.6 mmol/L (0.7-2.1); Sodium 137 mmol/L (137-145)
[2018-02-07] MEDS: metroNIDAZOLE 500 MG/100 ML PIGGYBACK 100 MG IV ×3 (05:46→20:42)
[2018-02-07] MEDS: ACETAMINOPHEN 325 MG TABLET 650 MG PO (06:01)
[2018-02-07] MEDS: INSULIN ASPART 100 UNIT/ML INSULN PEN SUBCUT ×4 (08:49→21:03)
[2018-02-07] MEDS: VANCOMYCIN 1,250 MG in SODIUM CHLORIDE 0.9% 250 ML 200 ML IV ×2 (08:49→16:59)
[2018-02-07] MEDS: LACTOBACILLUS ACIDOPHILUS TABLET 1 EACH PO ×3 (08:54→17:00)
[2018-02-07] MEDS: KETOROLAC 15 MG/ML VIAL IV ×2 (08:55→14:55)
[2018-02-07] MEDS: ATORVASTATIN 10 MG TABLET PO (08:56)
[2018-02-07] MEDS: TOPIRAMATE 100 MG TABLET PO (08:56)
[2018-02-07] MEDS: ENOXAPARIN 40 MG/0.4 ML SYRINGE SUBCUT (08:57)
[2018-02-07 09:04] LABS: Reflexed Lactate in 2 Hours Y
[2018-02-07] MEDS: LEVOTHYROXINE 100 MCG TABLET 200 MCG PO (09:10)
[2018-02-07] MEDS: MILNACIPRAN 100 MG 1 EACH PO (10:19)
[2018-02-07 10:57] LABS: Lactate 2HR (Lactic Acid Rflx) 2.9 mmol/L (0.7-2.1)
--- NOTE | 2018-02-07 15:54 | CM.IDA ---
Discharge Planning/Care Management CM Discharge Assessment Start: 02/07/18 15:48 Freq: Status: Active Protocol: Document 02/07/18 15:48 MASSIMO (Rec: 02/07/18 15:54 MASSIMO [id number]) Discharge Planning Assessment Assigned Caregivers Homecare RAÚL Yu DPOA/Assigned Designee Name Heber Silvestre, spouse Contact Information [phone] Advance Directives? No History Provided By Patient Prior Living Arrangements House Household Members spouse children Comment 14 yo dtr Type of transporation used prior to Drives own vehicle admit Independent with ADL's Yes: Mostly, MS and Fibromyalgia limit some functional ability Is patient alert and oriented? Yes Barriers to Discharge No Discharge Plan Home Transportation Arrangement Family Comment Met w/pt this afternoon, explained SW role. 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 Pt drives and can navigate her home well w/ walker if needed on unsteady days. Spouse works odd hours since he works 5 on, 3 off, and the shift he works changes every week. Pt feels mostly confident about returning home w/family but wonders if she will need IV abx on an outpt basis. Pt has IBS and other GI issues and fears meds will not be absorbed. Pt also fearful she is dehydrated. Pt very pleasant and talkative today; this OFFICE MACHINE SERVICE SUPERVISOR explained more information is needed from Dr Farfan re: Medical POC and DC needs. Pt appreciative of the visit. This OFFICE MACHINE SERVICE SUPERVISOR plans to return tomorrow to discuss DCP options again after discussing w/ Dr Farfan. SNF/HH Preference None Whiteboard Updated in Patient Room with Yes name and ext. # of Caregivers Homecare Review Status In Process
--- NOTE | 2018-02-07 16:54 | P.PN_ITS ---
Subjective Date Patient Seen: 02/07/18 Interval history: Patient feels like she is making some improvement. She has concerns about her ability to take oral medications at discharge given her gastro paresis. She would prefer home IV infusion if possible. She has multiple requests to modify her medications which have been noted. Will also start her on IV hydration given her ability to take in significant oral intake. Exam Vital Signs (past 8 hours): - 02/07/18 11:00 02/07/18 16:20 Temperature 98.2 F Pulse Rate 115 H 121 H Respiratory Rate 18 18 Blood Pressure 151/96 H 149/88 H Pulse Oximetry 96 98 Oxygen Delivery Method Room Air Oxygen Flow Rate 0 Narrative Exam Narrative: Pleasant female in no acute distress HEENT: Right parotid palpated soft, not firm, mildly tender. There is no overlying or erythema. Lungs: Clear to auscultation Cardiac exam: Normal S1-S2 regular rate and rhythm Abdomen: Soft and nontender Extremity: No edema Objective Labs Result Diagrams: 02/07/18 04:55 02/07/18 04:55 Labs: Laboratory Results - last 24 hr 02/06/18 02/06/18 02/06/18 19:30 19:30 19:30 WBC 11.8 H RBC 4.98 Hgb 13.9 Hct 42.3 MCV 84.9 MCH 27.9 MCHC 32.9 RDW 15.5 H Plt Count 304 Neut % (Auto) 52.6 Lymph % (Auto) 40.3 H [place] % (Auto) 4.5 Eos % (Auto) 1.8 L Baso % (Auto) 0.8 Neut # (Auto) 6200 H ESR 25 H Sodium 140 Potassium 3.8 Chloride 105 Carbon Dioxide 19 L BUN 12 Creatinine 0.60 Estimated GFR > 60.0 BUN/Creatinine Ratio 20.0 Glucose 325 H Lactate Calcium 9.2 Magnesium Total Bilirubin AST ALT Alkaline Phosphatase C-Reactive Protein 0.9 Total Protein Albumin Globulin Albumin/Globulin Ratio Procalcitonin < 0.05 02/06/18 02/06/18 02/07/18 19:30 23:55 04:55 WBC RBC Hgb Hct MCV MCH MCHC RDW Plt Count Neut % (Auto) Lymph % (Auto) [place] % (Auto) Eos % (Auto) Baso % (Auto) Neut # (Auto) ESR Sodium Potassium Chloride Carbon Dioxide BUN Creatinine Estimated GFR BUN/Creatinine Ratio Glucose Lactate 3.3 H 2.5 H 3.6 H Calcium Magnesium Total Bilirubin AST ALT Alkaline Phosphatase C-Reactive Protein Total Protein Albumin Globulin Albumin/Globulin Ratio Procalcitonin 02/07/18 02/07/18 02/07/18 04:55 04:55 09:04 WBC 12.0 H RBC 4.33 Hgb 12.4 Hct 36.9 MCV 85.2 MCH 28.7 MCHC 33.7 RDW 15.4 H Plt Count 268 Neut % (Auto) 63.8 Lymph % (Auto) 30.5 [place] % (Auto) 4.1 Eos % (Auto) 0.6 L Baso % (Auto) 1.0 Neut # (Auto) 7600 H ESR Sodium 137 Potassium 4.0 Chloride 108 H Carbon Dioxide 17 L BUN 11 Creatinine 0.50 L Estimated GFR > 60.0 BUN/Creatinine Ratio 22.0 Glucose 302 H Lactate 2.9 H Calcium 8.2 L Magnesium 1.4 L Total Bilirubin 0.3 AST 15 ALT 15 Alkaline Phosphatase 69 C-Reactive Protein Total Protein 5.5 L Albumin 3.2 L Globulin 2.3 Albumin/Globulin Ratio 1.4 Procalcitonin Assessment & Plan (1) Acute parotitis: Problem details: Continue IV antibiotics Current visit: Yes Status: Acute (2) Type 2 diabetes mellitus: Problem details: Will adjust sliding scale and Current visit: Yes Status: Acute (3) Diabetic gastroparesis: Problem details: Will continue her usual medication. Will attempt oral antibiotics tomorrow. She may require outpatient IV antibiotics. Current visit: Yes Status: Acute (4) Sepsis: Current visit: Yes Status: Acute Plan: Assessment/Plan Narrative: Anticipate discharge home tomorrow Quality VTE Deep Vein Thrombosis/Pulmonary Embolism Present on Admission: No
[2018-02-07] MEDS: KCL 20 MEQ IN NS 1,000 ML 84 MEQ IV (17:27)
[2018-02-07 19:29] LABS: Vitamin B12 278 pg/mL (239-931)
[2018-02-08] VITALS (10 sets, daily range): BP systolic 132–153; BP diastolic 89–100; PULSE 98–114; RESP 16–18; TEMP 36.6–36.9; O2SAT 96–99
[2018-02-08] MEDS: VANCOMYCIN 1,250 MG in SODIUM CHLORIDE 0.9% 250 ML 200 ML IV (00:35)
[2018-02-08] MEDS: ONDANSETRON 4 MG/2 ML INJ IV (00:40)
[2018-02-08] MEDS: ACETAMINOPHEN 325 MG TABLET 650 MG PO ×3 (00:53→15:31)
[2018-02-08 01:11] LABS: Bacteria Urine None Seen; RBC Urine None Seen (0-5/HPF); WBC Urine None Seen (0-5/HPF)
--- NOTE | 2018-02-08 01:11 | PC.NURSE ---
Addendum entered by Kamilla Daly R.N. 02/08/18 02:58: Snoring upon entering room but awoke and states pain is worse at 8/10; requested/medicated with Toradol Original Note: Patient is alert and oriented. Breath sounds CTA with RA sat of 98%. HRR but tachy at 113 bpm. BP also elevated at 132/95. Complains of nausea so medicated with Zofran. Complains of 6/10 right jaw/neck/shoulder pain so medicated with Tylenol and requested warm pack to area. Right cheek/neck swollen, red and tender. BT present and abdomen is soft. Denies dysuria; up to bathroom with 1 assist + walker (weakness due to MS) and UA sent to lab as ordered by MD. Independent with bed mobility. SCD's applied for night. Fall risk score is high and bed alarm is activated.
[2018-02-08 01:12] LABS: Appearance Urine UA CLEAR; Bilirubin Urine UA NEGATIVE (NEGATIVE); Color Urine UA YELLOW; Glucose Urine UA 1+ g/dL (Normal); Ketones Urine UA NEGATIVE (NEGATIVE); Leukocyte Esterase Urine UA NEGATIVE (NEGATIVE); Nitrite Urine UA NEGATIVE (Negative); Occult Blood Urine UA NEGATIVE (Negative); Protein Urine UA NEGATIVE (Negative); Urobilinogen Urine UA 0.2 E.U./dL (0.2); pH Urine UA 5.5 (4.5-8.0)
[2018-02-08 01:27] LABS: Culture Indicated Urine Cult Not Indicated; Squamous Epithelial Cell Urine 0-1 /HPF
[2018-02-08] MEDS: CEFEPIME 2 GM in SODIUM CHLORIDE 0.9% 100 ML 200 ML IV (02:53)
[2018-02-08] MEDS: KETOROLAC 15 MG/ML VIAL IV (02:55)
[2018-02-08] MEDS: metroNIDAZOLE 500 MG/100 ML PIGGYBACK 100 MG IV (05:19)
[2018-02-08] MEDS: ENOXAPARIN 40 MG/0.4 ML SYRINGE SUBCUT (08:41)
[2018-02-08] MEDS: LACTOBACILLUS ACIDOPHILUS TABLET 1 EACH PO ×3 (08:42→17:02)
[2018-02-08] MEDS: ATORVASTATIN 10 MG TABLET PO (08:42)
[2018-02-08] MEDS: BACLOFEN 10 MG TABLET 5 MG PO ×3 (08:42→21:26)
[2018-02-08] MEDS: MILNACIPRAN 100 MG 1 EACH PO (08:42)
[2018-02-08] MEDS: INSULIN ASPART 100 UNIT/ML INSULN PEN SUBCUT ×4 (08:43→21:29)
[2018-02-08] MEDS: GABAPENTIN 300 MG CAPSULE PO ×3 (08:45→21:25)
[2018-02-08 09:48] LABS: Vancomycin Trough 11.5 ug/mL (10-20)
[2018-02-08] MEDS: TOPIRAMATE 100 MG TABLET PO (10:40)
[2018-02-08] MEDS: LEVOTHYROXINE 100 MCG TABLET 200 MCG PO (10:40)
[2018-02-08] MEDS: KCL 20 MEQ IN NS 1,000 ML 84 MEQ IV (11:15)
--- NOTE | 2018-02-08 12:10 | PM.PN.1 ---
Subjective Date Patient Seen: 02/08/18 Interval history: Patient expresses concerns about the ability to take oral antibiotics given her gastroparesis. She is interested in home IV antibiotics. We discussed the possibility that given her multi-drug regimen would not be able to obtain this in the infusion center. In addition the patient would not likely be eligible for home IV antibiotics given multiple dosing. The patient would like to try oral antibiotics. She is concerned as she was unable to tolerate clindamycin previously. She was able to eat this morning. She is continuing to have diarrhea. She does report nausea but no vomiting. Her face is right parotid is improving. She does report some right throat pain. Exam Vital Signs (past 8 hours): - 02/08/18 05:15 02/08/18 08:20 Temperature 98.2 F 98.2 F Pulse Rate 108 H 98 H Respiratory Rate 18 18 Blood Pressure 153/92 H 141/92 H Pulse Oximetry 96 98 Oxygen Delivery Method Nasal Cannula Oxygen Flow Rate 0 Narrative Exam Narrative: Pleasant female in no acute distress HEENT: Right parotid soft palpated without pain. There is no overlying erythema. There is no firmness. Lungs: Clear to auscultation Cardiac exam: Regular rate and rhythm normal S1 and S2 Abdomen: Soft nontender nondistended Extremity: No edema Objective Labs Result Diagrams: 02/07/18 04:55 02/07/18 04:55 Labs: Laboratory Results - last 24 hr 02/07/18 02/08/18 02/08/18 17:40 01:00 08:42 Vitamin B12 278 Urine Color Yellow Urine Appearance Clear Urine pH 5.5 Ur Specific [place] 1.010 Urine Protein Negative Urine Glucose (UA) 1+ Urine Ketones Negative Urine Occult Blood Negative Urine Nitrate Negative Urine Bilirubin Negative Urine Urobilinogen 0.2 Ur Leukocyte Esterase Negative Urine RBC None seen Urine WBC None seen Ur Squamous Epith Cells 0-1 /hpf Urine Bacteria None seen Ur Culture Indicated? Cult not indicated Micro UA Comment Not Reportable Vancomycin Trough 11.5 Assessment & Plan (1) Sepsis: Problem details: Sepsis has improved patient is on IV hydration and antibiotics. Current visit: Yes Status: Acute (2) Diabetic gastroparesis: Problem details: Will continue her usual medication. Will attempt oral antibiotics tomorrow. She may require outpatient IV antibiotics. Current visit: Yes Status: Acute (3) Type 2 diabetes mellitus: Problem details: Will adjust sliding scale and Current visit: Yes Status: Acute (4) Acute parotitis: Problem details: Will switch her to p.o. Augmentin today. The patient can tolerate the Augmentin she will be discharged home on this tomorrow. Current visit: Yes Status: Acute Quality VTE Deep Vein Thrombosis/Pulmonary Embolism Present on Admission: No
[2018-02-08] MEDS: CLINDAMYCIN 150 MG CAPSULE 450 MG PO (21:25)
[2018-02-08] MEDS: MELATONIN 3 MG TABLET 6 MG PO (21:26)
[2018-02-08] MEDS: ZOLPIDEM 5 MG TABLET 10 MG PO (22:36)
[2018-02-09] VITALS (11 sets, daily range): BP systolic 127–149; BP diastolic 87–95; PULSE 105–113; RESP 16–24; TEMP 36.8–37.7; O2SAT 96–99
[2018-02-09] MEDS: ACETAMINOPHEN 325 MG TABLET 650 MG PO ×4 (00:49→21:40)
[2018-02-09] MEDS: KCL 20 MEQ IN NS 1,000 ML 84 MEQ IV ×2 (00:52→12:49)
--- NOTE | 2018-02-09 01:00 | PC.NURSE ---
Addendum entered by Kamilla Daly R.N. 02/09/18 05:49: Has slept most of night. States pain is 7/10 but declines pain medication but provided ice pack. Original Note: Patient is alert and oriented. Breath sounds CTA with RA sat of 98%. HRR but continues tachycardic in low 100's. BT hypoactive but states she is passing flatus. Denies dysuria, frequency or urgency. Is assisted to bathroom with 1 person and walker due to weakness from MS. Still has swelling in neck and some firmness near parotid gland; no redness noted but does complain of tenderness. Expresses frustration with having to wait for antibiotics to be ordered yesterday; allowed to vent. States dull pain is currently 8/10 in right neck area/jaw and also having pain sharp pain anterior left foot so medicated with Tylenol and ice pack applied to neck. Fall risk score is high and bed alarm is activated.
[2018-02-09] MEDS: CLINDAMYCIN 150 MG CAPSULE 450 MG PO (05:39)
[2018-02-09 05:48] LABS: Add Manual Diff / Slide Review NO; Basophils Percent Auto 0.9 % (0-2); Eosinophils Percent Auto 2.5 % (2-4); Hematocrit 40.4 % (36-46); Hemoglobin 14.2 g/dL (12.0-16.0); Lymphocytes Percent Auto 43.7 % (25-40); Mean Corpuscular HGB Conc 35.3 % (30-36); Mean Corpuscular Hemoglobin 29.7 PG (26-34); Mean Corpuscular Volume 84.2 fL (80-100); Neutrophils Absolute Auto 5000 /uL (3000-5900); Neutrophils Percent Auto 46.9 % (50-75); Platelet Count 275 X10^3/uL (150-400); Red Blood Cell Count 4.79 X10^6/uL (4.0-5.2); Red Cell Distribution Width 15.5 % (11.6-14.8); White Blood Cell Count 10.7 X10^3/uL (4.5-11.0)
[2018-02-09 06:03] LABS: Blood Urea Nitrogen 12 mg/dL (7-17); Calcium 8.8 mg/dL (8.4-10.2); Carbon Dioxide 18 mmol/L (22-32); Chloride 108 mmol/L (98-107); Estimated Glomerular Filt Rate > 60.0 mL/min (>60); Glucose 261 mg/dL (70-100); HEMOLYSIS 32 (0-50); Sodium 140 mmol/L (137-145)
[2018-02-09] MEDS: GABAPENTIN 300 MG CAPSULE PO ×3 (09:52→21:36)
[2018-02-09] MEDS: BACLOFEN 10 MG TABLET 5 MG PO ×3 (09:52→21:36)
[2018-02-09] MEDS: levoFLOXacin 500 MG TABLET PO (09:52)
[2018-02-09] MEDS: LACTOBACILLUS ACIDOPHILUS TABLET 1 EACH PO ×3 (09:52→17:55)
[2018-02-09] MEDS: TOPIRAMATE 100 MG TABLET PO (09:52)
[2018-02-09] MEDS: MILNACIPRAN 100 MG 1 EACH PO (09:53)
[2018-02-09] MEDS: LEVOTHYROXINE 100 MCG TABLET 200 MCG PO (09:53)
[2018-02-09] MEDS: ENOXAPARIN 40 MG/0.4 ML SYRINGE SUBCUT (09:54)
[2018-02-09] MEDS: ATORVASTATIN 10 MG TABLET PO (09:54)
[2018-02-09] MEDS: INSULIN ASPART 100 UNIT/ML INSULN PEN SUBCUT ×4 (09:58→21:38)
--- NOTE | 2018-02-09 10:56 | P.PN_ITS ---
Subjective Date Patient Seen: 02/09/18 Interval history: She is seen in her room here today to follow-up the parotiditis. She says that the right cheek pain has not let up, although the redness and swelling have improved. There was some short-term delay in the antibiotic initiation/continuation yesterday as her penicillin allergy was not known to us until Augmentin was ordered. She has subsequently received 2 doses of oral clindamycin, with the patient stating that the pain has not improved on that regimen. She has a baseline of multiple sclerosis. Her is present today. She is quite oriented to discussion and timing of antibiotics. Her white blood count is 10.7. The BMP is normal. The glucose is 261. Exam Vital Signs (past 8 hours): - 02/09/18 03:10 02/09/18 05:00 02/09/18 08:30 Temperature 98.3 F 98.7 F Pulse Rate 113 H 105 H Respiratory Rate 16 24 Blood Pressure 139/89 127/91 H Pulse Oximetry 98 98 97 Oxygen Delivery Method Room Air Oxygen Flow Rate 0 Narrative Exam Narrative: Alert and oriented x3. Heart is regular rate and rhythm without murmur. Lungs are clear to auscultation bilaterally. Extremities have no ankle edema. Oral exam is normal. There is a subtle swelling of the right lateral parotid area with exquisite tenderness. There is no redness or warmth. Objective Labs Result Diagrams: 02/09/18 05:20 02/09/18 05:20 Labs: Laboratory Results - last 24 hr 02/09/18 02/09/18 05:20 05:20 WBC 10.7 RBC 4.79 Hgb 14.2 Hct 40.4 MCV 84.2 MCH 29.7 MCHC 35.3 RDW 15.5 H Plt Count 275 Neut % (Auto) 46.9 L Lymph % (Auto) 43.7 H [place] % (Auto) 6.0 Eos % (Auto) 2.5 Baso % (Auto) 0.9 Neut # (Auto) 5000 Sodium 140 Potassium 5.0 Chloride 108 H Carbon Dioxide 18 L BUN 12 Creatinine 0.50 L Estimated GFR > 60.0 BUN/Creatinine Ratio 24.0 H Glucose 261 H Calcium 8.8 Assessment & Plan Plan: Assessment/Plan Narrative: (1) Sepsis: Problem details: Sepsis has improved patient is on IV hydration and antibiotics. Blood cultures are negative. Current visit: Yes Status: Acute (2) Diabetic gastroparesis: Problem details: Will continue her usual medication. Current visit: Yes Status: Acute (3) Type 2 diabetes mellitus: Problem details: Will continue sliding scale Aspart Current visit: Yes Status: Acute (4) Acute parotiditis: Problem details: Will change to IV clindamycin today. Continue IV levofloxacin. Plan discharge in 1-2 days assuming a response to the IV treatments. Current visit: Yes Status: Acute Quality VTE Deep Vein Thrombosis/Pulmonary Embolism Present on Admission: No
[2018-02-09] MEDS: CLINDAMYCIN 600 MG/50 ML PIGGYBACK 50 MG IV ×2 (12:49→17:55)
[2018-02-09] MEDS: ZOLPIDEM 5 MG TABLET 10 MG PO (21:39)
[2018-02-10] VITALS (8 sets, daily range): BP systolic 118–149; BP diastolic 73–96; PULSE 103–114; RESP 16–22; TEMP 36.6–37.6; O2SAT 96–99
[2018-02-10] MEDS: KETOROLAC 15 MG/ML VIAL IV (00:35)
[2018-02-10] MEDS: CLINDAMYCIN 600 MG/50 ML PIGGYBACK 50 MG IV ×3 (03:08→18:11)
[2018-02-10] MEDS: KCL 20 MEQ IN NS 1,000 ML 84 MEQ IV ×2 (03:08→17:15)
[2018-02-10] MEDS: BACLOFEN 10 MG TABLET 5 MG PO ×3 (09:04→20:58)
[2018-02-10] MEDS: LACTOBACILLUS ACIDOPHILUS TABLET 1 EACH PO ×3 (09:04→17:21)
[2018-02-10] MEDS: GABAPENTIN 300 MG CAPSULE PO ×3 (09:04→20:59)
[2018-02-10] MEDS: ATORVASTATIN 10 MG TABLET PO (09:04)
[2018-02-10] MEDS: levoFLOXacin 500 MG TABLET PO (09:05)
[2018-02-10] MEDS: ENOXAPARIN 40 MG/0.4 ML SYRINGE SUBCUT (09:05)
[2018-02-10] MEDS: MILNACIPRAN 100 MG 1 EACH PO (09:08)
[2018-02-10] MEDS: TOPIRAMATE 100 MG TABLET PO (09:08)
[2018-02-10] MEDS: LEVOTHYROXINE 100 MCG TABLET 200 MCG PO (09:09)
[2018-02-10] MEDS: INSULIN ASPART 100 UNIT/ML INSULN PEN SUBCUT ×4 (09:09→20:56)
--- NOTE | 2018-02-10 11:59 | PM.PN.1 ---
Subjective Date Patient Seen: 02/10/18 Interval history: She is seen in her room here today to follow-up the parotiditis. She says that the right cheek pain has not let up, although the redness has resolved. She has been on IV clindamycin since yesterday. She has a baseline of multiple sclerosis. Her is present today. She is quite oriented to discussion and timing of antibiotics. Her heart rate is 109, which has been consistent. She would like her correctional insulin scale to be increased quite a bit as she uses more at home than we have been using here. Exam Vital Signs (past 8 hours): - 02/10/18 07:00 02/10/18 08:00 Temperature 98.1 F Pulse Rate 103 H Respiratory Rate 22 Blood Pressure 140/96 H Pulse Oximetry 97 98 Oxygen Delivery Method Room Air Oxygen Flow Rate 0 Narrative Exam Narrative: Alert and oriented x3, in no apparent distress. As before she tends to ?over think? so has lots of comments about her treatment and potential outcomes. We have a wide ranging discussion about her ability to keep track of all these details and desire to be fully involved in all decisions for treatment. There is mild swelling of the right mandibular area. There is moderate tenderness. There is no discoloration or warmth. Oral exam is normal. Heart is regular rate and rhythm without murmur. There is no ankle edema.. Objective Labs Result Diagrams: 02/09/18 05:20 02/09/18 05:20 Assessment & Plan Plan: Assessment/Plan Narrative: (1) Sepsis: Problem details: HR of 104 with Temp (at home) of 101 F on admission. This meets the 2 out of the 4 sepsis criteria threshold. Sepsis has improved patient is on IV hydration and antibiotics. Blood cultures are negative. Current visit: Yes Status: Acute (2) Diabetic gastroparesis: Problem details: No current treatment. Current visit: Yes Status: Acute (3) Type 2 diabetes mellitus: Problem details: Will continue sliding scale Aspart and increase the parameter doses as she requested. Current visit: Yes Status: Acute (4) Acute parotiditis: Problem details: Will continue IV clindamycin for one more day. Also continue IV levofloxacin. Plan discharge tomorrow on oral Clindamycin. Current visit: Yes Status: Acute 5 - Hypomagnesemia - Recheck MG and K levels today. The patient quite obviously felt that I had ?overstepped? by engaging in a discussion about her style of interaction/thinking. She did not appreciate my comment on over thinking?. Quality VTE Deep Vein Thrombosis/Pulmonary Embolism Present on Admission: No
--- NOTE | 2018-02-10 14:56 | CM.DPC ---
DCP Cont: Per MD, pt with M.S. at baseline and currently quite involved in her plan of care and has concerns still about Abx being absorbed due to her medical issues and MD spoke with pt and spouse bedside and pt likely not quite stable for d/c yet today although continues to make progress. Plan: SW to follow for likely pt d/c home with spouse and 14 year old dtr when medically stable. SW to follow for any further identified discharge planning needs. RAÚL Dangelo
[2018-02-10 17:48] LABS: Blood Urea Nitrogen 11 mg/dL (7-17); Calcium 9.2 mg/dL (8.4-10.2); Carbon Dioxide 20 mmol/L (22-32); Chloride 105 mmol/L (98-107); Estimated Glomerular Filt Rate > 60.0 mL/min (>60); Glucose 190 mg/dL (70-100); HEMOLYSIS < 15 (0-50); Magnesium 1.5 mg/dL (1.6-2.3); Potassium 3.9 mmol/L (3.4-5.1); Sodium 142 mmol/L (137-145)
[2018-02-11] VITALS: BP 142/90; PULSE 100; RESP 19; TEMP 36.8; O2SAT 100; O2SAT 99
[2018-02-11] MEDS: ONDANSETRON 4 MG/2 ML INJ IV (00:09)
[2018-02-11] MEDS: ZOLPIDEM 5 MG TABLET 10 MG PO (00:09)
[2018-02-11] MEDS: CLINDAMYCIN 600 MG/50 ML PIGGYBACK 50 MG IV (03:12)
[2018-02-11 03:30] VITALS: BP 134/89; PULSE 111; RESP 18; TEMP 36.6; O2SAT 97
[2018-02-11] MEDS: KCL 20 MEQ IN NS 1,000 ML 84 MEQ IV (06:28)
[2018-02-11 07:00] VITALS: O2SAT 97
[2018-02-11 07:50] VITALS: BP 145/95; PULSE 106; RESP 24; TEMP 36.8; O2SAT 97
[2018-02-11] MEDS: GABAPENTIN 300 MG CAPSULE PO (08:46)
[2018-02-11] MEDS: LACTOBACILLUS ACIDOPHILUS TABLET 1 EACH PO ×2 (08:46→11:32)
[2018-02-11] MEDS: levoFLOXacin 500 MG TABLET PO (08:46)
[2018-02-11] MEDS: TOPIRAMATE 100 MG TABLET PO (08:47)
[2018-02-11] MEDS: LEVOTHYROXINE 100 MCG TABLET 200 MCG PO (08:47)
[2018-02-11] MEDS: ATORVASTATIN 10 MG TABLET PO (08:47)
[2018-02-11] MEDS: INSULIN ASPART 100 UNIT/ML INSULN PEN SUBCUT ×2 (08:48→11:33)
[2018-02-11] MEDS: MAGNESIUM SULFATE 2 GM/50 ML PIGGYBACK IV (08:50)
[2018-02-11] MEDS: BACLOFEN 10 MG TABLET 5 MG PO (08:51)
[2018-02-11] MEDS: MILNACIPRAN 100 MG 1 EACH PO (08:51)
[2018-02-11] MEDS: CLINDAMYCIN 600 MG/50 ML PIGGYBACK 100 MG IV (11:48)
[2018-02-11] MEDS: ENOXAPARIN 40 MG/0.4 ML SYRINGE SUBCUT (11:49)
--- NOTE | 2018-02-11 12:33 | PM.DS.1 ---
History of Present Illness Date Patient Seen: 02/11/18 Chief complaint: ORAL PAIN AND SWELLING Narrative: The patient is a 42-year-old female w/ PMH Significant for MS, fibromyalgia, HTN, DM, obesity, chronic migraines, vitamin D insufficiency, and anxiety / depression. Presented to the ED upon the recommendation of her PCP for a facial CT scan. Patient was seen in the ED on 01/27 with right-sided neck pain, consequently diagnosed with acute parotitis and discharged home on a course of clindamycin. There has been minimal improvement in her symptoms, infarct the degree of swelling is noted to be worse. Reports fever at home of 101F. Denies difficulty w/ mastication or swallowing. Able to manage secretions. Patient reports adherence with antimicrobial regimen. Patient has had a similar event in the past and was successfully treated with antibiotics. Denies recent illness or infection. She does have MS and on immunosuppression w/ Tysabri (natalizumab) infusions, last Jan 17. Believes may be having a mild flare. Recently suffering from sinus infection. No oral or dental problems. On CPAP and having difficulty maintaining her CPAP clean. Face CT revealed asymmetric enhancement and fullness of the right parotid gland suggestive of mild parotitis. No discrete abscess collection, stones, or dilated duct identified. Also, initial lab work consistent w/ sepsis criteria. Received IVF per sepsis protocol, vancomycin, and metronidazole in ED. Also, received benadryl and hydrocortisone. Discharge Providers Date of admission: 02/06/18 22:20 Primary care physician: Cedric Noel DO Discharge provider: Nadya Andres MD Discharge Date: 02/11/18 Summary Hospital Course: (1) Sepsis: Problem details: HR of 104 with Temp (at home) of 101 F on admission. This meets the 2 out of the 4 sepsis criteria threshold. Sepsis resolved quickly on IV hydration and antibiotics. Blood cultures are negative. Current visit: Yes Status: Acute (2) Diabetic gastroparesis: Problem details: No current treatment. Current visit: Yes Status: Acute (3) Type 2 diabetes mellitus: Problem details: She will resume her home aspart scale for sugar correction. Current visit: Yes Status: Acute (4) Acute parotiditis: Problem details: Completed IV clindamycin and Levaquin. Will discharge on oral Levaquin and on oral Clindamycin for another week. Current visit: Yes Status: Acute 5 - Hypomagnesemia - magnesium 1.5 today so additional 2 g IV is given. Exam Vital Signs (past 8 hours): - 02/11/18 07:00 02/11/18 07:50 Temperature 98.3 F Pulse Rate 106 H Respiratory Rate 24 Blood Pressure 145/95 H Pulse Oximetry 97 97 Oxygen Delivery Method Room Air Oxygen Flow Rate 0 Narrative Exam Narrative: She is alert and oriented x3, in no apparent distress. There is still some subtle visible swelling on the right cheek. I did not palpate it today. Objective Labs Result Diagrams: 02/09/18 05:20 02/10/18 Unknown Labs: Laboratory Results - last 24 hr 02/07/18 02/10/18 17:40 Unknown Sodium 142 Potassium 3.9 Chloride 105 Carbon Dioxide 20 L BUN 11 Creatinine 0.50 L Estimated GFR > 60.0 BUN/Creatinine Ratio 22.0 Glucose 190 H Calcium 9.2 Magnesium 1.5 L 25-OH Vitamin D Total 22 L 25-Hydroxy Vitamin D2 12 25-Hydroxy Vitamin D3 10 Discharge Plan Discharge Plan Patient Disposition: Home Discharge comment: Follow up with Dr. Noel this week. Continue your home Insulin doses. Discharge Med Rec/Prescriptions Prescriptions: New levofloxacin 500 mg Tablet 500 mg PO DAILY Qty: 7 RF: 0 clindamycin HCl 300 mg capsule 600 mg PO TID Qty: 42 RF: 0 Continue ibuprofen 800 mg tablet 800 mg PO Q8H PRN (Reason: pain) Qty: 30 RF: 0 atorvastatin 10 mg tablet 1 tab PO DAILY RF: 0 baclofen 10 mg tablet 1 tab PO DAILY RF: 0 diazepam 10 mg tablet 1 tab PO DAILY RF: 0 fluconazole 100 mg tablet 1 tab PO PRN PRN (Reason: migraine) RF: 0 meclizine 12.5 mg tablet 1 tab PO DAILY RF: 0 gabapentin 300 mg capsule 1 tab PO TID RF: 0 levothyroxine 200 mcg tablet 1 tab PO DAILY RF: 0 furosemide 20 mg tablet 1 tab PO DAILY RF: 0 topiramate 100 mg tablet 1 tab PO DAILY RF: 0 metoclopramide HCl 10 mg tablet 1 tab PO DAILY RF: 0 eletriptan 40 mg tablet 1 tab PO PRN PRN (Reason: Migraine Headache) RF: 0 milnacipran 100 mg tablet 1 tab PO DAILY RF: 0 empagliflozin 10 mg tablet 1 tab PO DAILY RF: 0 hydrochlorothiazide 12.5 mg PO DAILY RF: 0 triamcinolone acetonide 0.1 % cream See Label Instructions .ROUTE .COMPLEX RF: 0 zolpidem 5 mg tablet 1 tab PO PRN PRN (Reason: Insomnia) RF: 0 Discontinued clindamycin HCl 300 mg capsule 300 mg PO TID Qty: 21 RF: 0 Follow up/Referrals: Cedric Noel DO [Primary Care Provider] - Provider Discharge Instructions Diet: Diet as Tolerated Visit Report/Discharge Packet Instructions: Parotitis Visit Report Forms: Stroke Signs & Symptoms Discharge Data Primary Care Provider: Cedric Noel Attending Provider: Alba Beyer Admit Date/Time: 02/06/18 22:20 Discharges patient from system. Discharge Date/Time: 02/11/18 13:51 Quality VTE Deep Vein Thrombosis/Pulmonary Embolism Present on Admission: No
--- NOTE | 2018-02-11 13:19 | CM.DPC ---
DCP/cont Per MD patient to discharge home today. Met with patient: patient signed HARRY and was agreeable to discharge. Patient had no discharge needs at this time. Patient will have spouse provide transportation. Plan: Patient to discharge home today via POV. No needs at this time.
== END 2018-02-11 13:51 | disposition home or self-care (01) | DRG 872 ==
LOC: ED 21:22 → AC 22:21
PROVIDERS: Family Medicine; Internal Medicine; Admitting Provider Nurse Practitioner Gerontology; Emergency Provider Emergency Medicine; Family Provider Family Medicine; PCP Family Medicine; Visit Provider Nurse Practitioner Gerontology
DX: A41.9 Sepsis, unspecified organism (principal); K11.21 Acute sialoadenitis; G35 Multiple sclerosis; K31.84 Gastroparesis; M79.7 Fibromyalgia; I10 Essential (primary) hypertension; F41.9 Anxiety disorder, unspecified; F32.9 Major depressive disorder, single episode, unspecified; Z79.4 Long term (current) use of insulin; E03.9 Hypothyroidism, unspecified; E11.43 Type 2 diabetes mellitus with diabetic autonomic (poly)neuropathy; E83.42 Hypomagnesemia
CPT/HCPCS: 36415; 70487; 80048; 80053; 80202; 81001; 82306; 82607; 82962; 83605; 83735; 84145; 85025; 85651; 86140; 87040; 96361; 96365; 96367; 96375; 99283; 99285; J0692; J1200; J1650; J1720; J1885; J2405; J3370; Q9967

== ENCOUNTER 2018-08-20 13:31 | Emergency (ER) | payer MEDICARE, OTHER, SELFPAY ==
[2018-08-20 13:41] VITALS: BP 156/97; PULSE 114; RESP 18; TEMP 36.6; O2SAT 99; BMI 34.0
[2018-08-20 14:39] LABS: Add Manual Diff / Slide Review NO; Basophils Absolute Auto 100 /uL (0-100); Basophils Percent Auto 1.3 % (0-2); Eosinophils Absolute Auto 200 /uL (0-450); Eosinophils Percent Auto 2.1 % (2-4); Hematocrit 39.3 % (36-46); Hemoglobin 13.4 g/dL (12.0-16.0); Lymphocytes Absolute Auto 3100 /uL (1100-4500); Lymphocytes Percent Auto 30.4 % (25-40); Mean Corpuscular Hemoglobin 28.9 PG (26-34); Monocytes Absolute Auto 600 /uL (0-900); Neutrophils Absolute Auto 6100 /uL (1500-7000); Neutrophils Percent Auto 60.2 % (50-75); Platelet Count 278 X10^3/uL (150-400); Red Blood Cell Count 4.63 X10^6/uL (4.0-5.2); Red Cell Distribution Width 14.1 % (11.6-14.8); White Blood Cell Count 10.1 X10^3/uL (4.5-11.0)
[2018-08-20] MEDS: ONDANSETRON 4 MG/2 ML INJ IV ×2 (14:42→18:01)
[2018-08-20 14:47] LABS: PTT Partial Thromboplastin Tim 32 SECONDS (26.4-36.2)
[2018-08-20 14:53] LABS: Alanine Aminotransferase 10 IU/L (9-52); Albumin 3.5 g/dL (3.5-5.0); Albumin Globulin Ratio 1.3 (1.0-2.8); Alkaline Phosphatase 102 U/L (38-126); Aspartate Aminotransferase 16 IU/L (14-36); BUN Creatinine Ratio 14.4 (6-22); Bilirubin Total 0.4 mg/dL (0.2-1.3); Blood Urea Nitrogen 13 mg/dL (7-17); Carbon Dioxide 27 mmol/L (22-32); Chloride 100 mmol/L (98-107); Estimated Glomerular Filt Rate > 60.0 mL/min (>60); Globulin 2.6 g/dL (1.7-4.1); Glucose 293 mg/dL (70-100); HEMOLYSIS < 15 (0-50); Lipase 15 U/L (23-300); Potassium 4.2 mmol/L (3.4-5.1); Sodium 134 mmol/L (137-145); Total Protein 6.1 g/dL (6.3-8.2)
[2018-08-20 15:43] VITALS: BP 145/88; PULSE 105; O2SAT 95
[2018-08-20 16:00] VITALS: BP 136/81; PULSE 103; O2SAT 92
--- NOTE | 2018-08-20 17:25 | ED.FEMALEGU ---
HPI - Female Genitourinary <Geraldine Rich PA-C - Last Filed: 08/20/18 21:16> General Chief complaint: Urogenital-Female Stated complaint: Kidney stone obstruction Time Seen by Provider: 08/20/18 17:12 Source: patient and old records reviewed Mode of arrival: ambulatory Limitations: no limitations History of Present Illness HPI Narrative: This 43-year-old female comes to ED secondary to persistent kidney stone pain in the left flank and groin area. She was seen at another local ED 08/17 and diagnosed with 2 and 3 mm stones 1 of which was obstructing. She states that pain did not get better at the ED. The Vicoprofen that she takes at home does help somewhat. She states she has had persistent nausea and intermittent vomiting but no vomiting today. She states she has had a small amount of water today, maybe 8 or 10 oz when she usually drinks much more. She states she ate an [employer] but has not had other food today. She states that she has had fevers of 100-101 range this whole time, but none observed at her ED visits. She states that today she did start to have some dysuria, has not had any before today. She has not had any new hematuria or urinary frequency. She states that she has not had a bowel movement since Monday. She denies it cough, chest pain, upper respiratory symptoms, new pain in her extremities or other new symptoms today. She states she is concerned about the obstructing stones, possible infection and her history of sepsis with persistent pain. She feels like pain has gradually gotten somewhat worse. Describes as constant, with intermittent sharp pain that can radiate down into her groin or up into her back briefly. No exacerbating or alleviating features. Patient notes that she could not tolerate Dilaudid at her recent ED visit, does take Vicoprofen at home and this has helped pain (avoids regular APAP due to elevated LFTs) Related Data Home Medications Medication Instructions Recorded Confirmed atorvastatin 1 tab PO QPM 02/07/18 08/20/18 baclofen 1 tab PO BID PRN 02/07/18 08/20/18 diazepam 1 tab PO BID PRN 02/07/18 08/20/18 eletriptan 1 tab PO PRN PRN 02/07/18 02/07/18 empagliflozin 1 tab PO DAILY 02/07/18 02/07/18 fluconazole 1 tab PO PRN PRN 02/07/18 02/07/18 gabapentin 1 tab PO TID 02/07/18 02/07/18 hydrochlorothiazide 12.5 mg PO DAILY 02/07/18 02/07/18 levothyroxine 200 mcg PO DAILY 02/07/18 08/20/18 meclizine 1 tab PO DAILY 02/07/18 02/07/18 metoclopramide HCl 1 tab PO DAILY 02/07/18 02/07/18 milnacipran 1 tab PO BID 02/07/18 08/20/18 topiramate 100 mg PO DAILY 02/07/18 08/20/18 triamcinolone acetonide See Rx Instructions .ROUTE .COMPLEX 02/07/18 02/07/18 zolpidem 5 mg PO BEDTIME PRN 02/07/18 08/20/18 furosemide 10 mg PO 08/20/18 hydrocodone-acetaminophen 1 - 2 tab PO Q6H PRN 08/20/18 08/20/18 insulin aspart U-100 [Novolog 08/20/18 Flexpen U-100 Insulin] insulin glargine [Lantus Solostar 08/20/18 U-100 Insulin] milnacipran [Savella] 08/20/18 promethazine 12.5 mg PO Q6H PRN 08/20/18 08/20/18 Previous Rx's Medication Instructions Recorded ibuprofen 800 mg PO Q8H PRN #30 tab 01/27/18 levofloxacin 500 mg PO DAILY #7 tab 02/11/18 hydrocodone-ibuprofen 1 tab PO Q4-6H PRN #5 tab 08/20/18 ondansetron 4 mg PO DAILY PRN #7 tab 08/20/18 tamsulosin [Flomax] 0.4 mg PO DAILY #4 cap 08/20/18 Allergies Allergy/AdvReac Type Severity Reaction Status Date / Time codeine Allergy Severe Rash Verified 08/20/18 17:18 lovastatin [From Advicor] Allergy Severe Anaphylaxis Verified 08/20/18 17:16 niacin [From Advicor] Allergy Severe Anaphylaxis Verified 08/20/18 17:16 pseudoephedrine Allergy Severe Anaphylaxis Verified 08/20/18 17:18 red (food color) Allergy Severe Anaphylaxis Verified 08/20/18 17:18 Penicillins Allergy Intermediate Rash Verified 08/20/18 17:18 ampicillin Allergy Rash Verified 08/20/18 13:41 erythromycin base Allergy Verified 08/20/18 13:41 glatiramer (copolymer 1) Allergy Verified 08/20/18 13:41 interferon beta-1a Allergy itching Verified 08/20/18 13:41 and rash lisinopril Allergy Kidneys Verified 08/20/18 13:41 shut down metformin Allergy Gastrointestinal Verified 08/20/18 13:41 Upset Sulfa (Sulfonamide Allergy Verified 08/20/18 13:41 Antibiotics) artificial sweetners Allergy Uncoded 08/20/18 13:41 barium Allergy Uncoded 08/20/18 13:41 Review of Systems <Geraldine Rich PA-C - Last Filed: 08/20/18 21:16> Review of Systems ROS Unobtainable: All systems reviewed & are unremarkable except as noted in HPI and below PFSH <Geraldine Rich PA-C - Last Filed: 08/20/18 21:16> Medical History Chronically low serum potassium (Acute) Diabetes (Acute) Fibromyalgia (Acute) Low sodium levels (Acute) Low vitamin D level (Acute) Multiple sclerosis (Acute) Surgical History No pertinent past surgical history (Acute) Social History (Updated 02/06/18 @ 21:04 by Brandon Lr DO) marital status: household members: spouse and children Smoking Status: Never smoker Social History marital status: household members: spouse and children Smoking Status: Never smoker Exam <Geraldine Rich PA-C - Last Filed: 08/20/18 21:16> Narrative Exam Narrative: GENERAL APPEARANCE: Patient sitting comfortably, in no distress. HEENT: PERRL, EOMI, no scleral icterus NECK: Supple LUNGS: Clear to auscultation bilaterally. HEART: Rate and rhythm regular, normal S1 and S2, no S3 or S4. ABDOMEN: Soft, nondistended, bowel sounds present x 4 quadrants, no masses palpable, no hepatosplenomegaly. Mild left CVAT, moderate left lower/suprapubic tenderness without guarding or rebound EXTREMITIES: No edema, no cyanosis DERMATOLOGIC: No jaundice or exanthem NEUROLOGIC: Alert and oriented with normal speech and coordination Initial Vital Signs Initial Vital Signs: Vital Signs Temperature 97.9 F 08/20/18 13:41 Pulse Rate 114 H 08/20/18 13:41 Respiratory Rate 18 08/20/18 13:41 Blood Pressure 156/97 H 08/20/18 13:41 Pulse Oximetry 99 08/20/18 13:41 <Desiree Chowdary DO - Last Filed: 08/21/18 03:15> Initial Vital Signs Initial Vital Signs: Vital Signs Temperature 97.9 F 08/20/18 13:41 Pulse Rate 114 H 08/20/18 13:41 Respiratory Rate 18 08/20/18 13:41 Blood Pressure 156/97 H 08/20/18 13:41 Pulse Oximetry 99 08/20/18 13:41 Course <Geraldine Rich PA-C - Last Filed: 08/20/18 21:16> Additional Information: 08/17 is received from we would be general. Reviewed. WBC 12.5, neutrophil count 8.6, H&H normal. Sodium 137, potassium 3.7, BUN 8, creatinine 0.6, calcium 8.1, glucose 247, AST 23, ALT 16, alk phos 83, lipase 18, UA with moderate bacteria and squamous cells. CT shows 3 mm obstructing left you PJ calculus with left renal enlargement and perinephric stranding, and 2 mm lower pole stone. Otherwise unremarkable. Patient appeared improved during her stay, after Toradol appeared relaxed, texting on her cell phone. Nausea improved and was tolerating water at the time of discharge. Reviewed CT findings, still some inflammation present but it does look like the obstructing stone has passed the UVJ (read as 3 mm on previous scan, 4 mm calcification today). Since she is feeling improved, she can continue pain medication, Zofran at home. She was given a dose of Flomax here. She states she has also not had a bowel movement since Monday, equates somewhat with decreased intake, also pain meds. Given information for using MiraLax and juices for this which she believes she already has at home. She already has follow-up set up with her PCP tomorrow, and advised to keep that appointment as she may need a urology referral if not continuing to improve by then. She agreed to return to ED if feeling acutely worse again in the interim. Orders Ordered: Discontinued Medications Hydrocodone Bitart/Acetaminophen ([place] 5/325) 2 tab PO NOW ONE Stop: 08/20/18 18:53 Last Admin: 08/20/18 19:04 Dose: 2 tab Sodium Chloride (Normal Saline 0.9%) 1,000 mls @ 1,000 mls/hr IV BOLUS ONE Stop: 08/20/18 18:44 Last Infusion: 08/20/18 18:58 Dose: 0 mls/hr Admin: 08/20/18 18:01 Dose: 1,000 mls/hr Ketorolac Tromethamine (Toradol) 30 mg IV NOW ONE Stop: 08/20/18 17:46 Last Admin: 08/20/18 18:01 Dose: 30 mg Ondansetron HCl (Zofran) 4 mg IV NOW ONE Stop: 08/20/18 14:41 Last Admin: 08/20/18 14:42 Dose: 4 mg Ondansetron HCl (Zofran) 4 mg IV NOW ONE Stop: 08/20/18 17:46 Last Admin: 08/20/18 18:01 Dose: 4 mg Tamsulosin HCl (Flomax) 0.4 mg PO NOW ONE Stop: 08/20/18 17:46 Last Admin: 08/20/18 18:01 Dose: 0.4 mg Vital Signs - 8 hr 08/20/18 19:58 Pulse Rate 103 H Respiratory Rate 18 Blood Pressure [Left Arm] 131/85 Pulse Oximetry 99 <Desiree Chowdary, - Last Filed: 08/21/18 03:15> Orders Ordered: Discontinued Medications Hydrocodone Bitart/Acetaminophen ([place] 5/325) 2 tab PO NOW ONE Stop: 08/20/18 18:53 Last Admin: 08/20/18 19:04 Dose: 2 tab Sodium Chloride (Normal Saline 0.9%) 1,000 mls @ 1,000 mls/hr IV BOLUS ONE Stop: 08/20/18 18:44 Last Infusion: 08/20/18 18:58 Dose: 0 mls/hr Admin: 08/20/18 18:01 Dose: 1,000 mls/hr Ketorolac Tromethamine (Toradol) 30 mg IV NOW ONE Stop: 08/20/18 17:46 Last Admin: 08/20/18 18:01 Dose: 30 mg Ondansetron HCl (Zofran) 4 mg IV NOW ONE Stop: 08/20/18 14:41 Last Admin: 08/20/18 14:42 Dose: 4 mg Ondansetron HCl (Zofran) 4 mg IV NOW ONE Stop: 08/20/18 17:46 Last Admin: 08/20/18 18:01 Dose: 4 mg Tamsulosin HCl (Flomax) 0.4 mg PO NOW ONE Stop: 08/20/18 17:46 Last Admin: 08/20/18 18:01 Dose: 0.4 mg Vital Signs - 8 hr 08/20/18 19:58 Pulse Rate 103 H Respiratory Rate 18 Blood Pressure [Left Arm] 131/85 Pulse Oximetry 99 MDM - Female Genitourinary <Geraldine Rich PA-C - Last Filed: 08/20/18 21:16> Lab Data Attestation: I reviewed the patient's lab results. Result diagrams: 08/20/18 14:28 08/20/18 14:28 Lab Results 08/20/18 08/20/18 08/20/18 Range/Units 14:28 14:28 14:28 WBC 10.1 (4.5-11.0) X10^3/uL RBC 4.63 (4.0-5.2) X10^6/uL Hgb 13.4 (12.0-16.0) g/dL Hct 39.3 (36-46) % MCV 85.0 (80-100) fL MCH 28.9 (26-34) PG MCHC 34.0 (30-36) % RDW 14.1 (11.6-14.8) % Plt Count 278 (150-400) X10^3/uL Neut % (Auto) 60.2 (50-75) % Lymph % (Auto) 30.4 (25-40) % [place] % (Auto) 6.0 (3-14) % Eos % (Auto) 2.1 (2-4) % Baso % (Auto) 1.3 (0-2) % Neut # (Auto) 6100 (3850-4078) /uL Lymph # (Auto) 3100 (8036-9723) /uL [place] # (Auto) 600 (0-900) /uL Eos # (Auto) 200 (0-450) /uL Baso # (Auto) 100 (0-100) /uL PT 11.0 (10.1-12.7) SECONDS INR 1.0 (0.9-1.3) APTT 32 (26.4-36.2) SECONDS Sodium 134 L (137-145) mmol/L Potassium 4.2 (3.4-5.1) mmol/L Chloride 100 (98-107) mmol/L Carbon Dioxide 27 (22-32) mmol/L BUN 13 (7-17) mg/dL Creatinine 0.90 (0.52-1.04) mg/dL Estimated GFR > 60.0 (>60) mL/min BUN/Creatinine Ratio 14.4 (6-22) Glucose 293 H (70-100) mg/dL Calcium 9.0 (8.4-10.2) mg/dL Total Bilirubin 0.4 (0.2-1.3) mg/dL AST 16 (14-36) IU/L ALT 10 (9-52) IU/L Alkaline Phosphatase 102 (38-126) U/L Total Protein 6.1 L (6.3-8.2) g/dL Albumin 3.5 (3.5-5.0) g/dL Globulin 2.6 (1.7-4.1) g/dL Albumin/Globulin Ratio 1.3 (1.0-2.8) Lipase 15 L (23-300) U/L Urine RBC (0-5/HPF) Urine WBC (0-5/HPF) Ur Squamous Epith Cells (0-5/HPF) Amorphous Sediment Urine Bacteria (None) Ur Culture Indicated? 08/20/18 Range/Units 16:50 WBC (4.5-11.0) X10^3/uL RBC (4.0-5.2) X10^6/uL Hgb (12.0-16.0) g/dL Hct (36-46) % MCV (80-100) fL MCH (26-34) PG MCHC (30-36) % RDW (11.6-14.8) % Plt Count (150-400) X10^3/uL Neut % (Auto) (50-75) % Lymph % (Auto) (25-40) % [place] % (Auto) (3-14) % Eos % (Auto) (2-4) % Baso % (Auto) (0-2) % Neut # (Auto) (7410-9662) /uL Lymph # (Auto) (4133-1548) /uL [place] # (Auto) (0-900) /uL Eos # (Auto) (0-450) /uL Baso # (Auto) (0-100) /uL PT (10.1-12.7) SECONDS INR (0.9-1.3) APTT (26.4-36.2) SECONDS Sodium (137-145) mmol/L Potassium (3.4-5.1) mmol/L Chloride (98-107) mmol/L Carbon Dioxide (22-32) mmol/L BUN (7-17) mg/dL Creatinine (0.52-1.04) mg/dL Estimated GFR (>60) mL/min BUN/Creatinine Ratio (6-22) Glucose (70-100) mg/dL Calcium (8.4-10.2) mg/dL Total Bilirubin (0.2-1.3) mg/dL AST (14-36) IU/L ALT (9-52) IU/L Alkaline Phosphatase (38-126) U/L Total Protein (6.3-8.2) g/dL Albumin (3.5-5.0) g/dL Globulin (1.7-4.1) g/dL Albumin/Globulin Ratio (1.0-2.8) Lipase (23-300) U/L Urine RBC 5-10/hpf H (0-5/HPF) Urine WBC 1-5/hpf (0-5/HPF) Ur Squamous Epith Cells 1-5 /hpf (0-5/HPF) Amorphous Sediment 1+ Urine Bacteria Occasional (0-1) (None) Ur Culture Indicated? Cult not indicated Point of Care Testing Test Results Negative Urine Dip Bedside Urine Glucose 500 mg/dl Bedside Urine Bilirubin - Negative Bedside Urine Ketone - Negative Urine Specific [place] 1.015 Bedside Urine Occult Blood ++ Bedside Urine pH 7.5 Bedside Urine Protein - Negative Bedside Urine Urobilinogen +/- 1mg Bedside Urine Nitrite - Negative Bedside Urine Leukocytes - Negative Esterase Imaging Data CT scan - abdomen: Radiologist's impression: 43 Geraldine Fishfader, PA-C Find Patient Imaging Josie Silvestre 43 F 1975 ACTIVITY DATE EXAM STATUS AUTHOR 08/20/18 17:[address] [address] [address] Scan Report Signed Patient: Josie Silvestre MMR#: [id number] : 1975Acct:[id number] Age/Sex: 43 / FDate of Service: 08/20/18 Loc: ED Accession Number: [id number] Procedure: CT kidney ureter bladder (KUB) Ordering Provider: Geraldine Rich P.A-C PROCEDURE: CT KIDNEY URETER BLADDER (KUB) INDICATIONS: persistent pain, small obstructing stones (2-3mm) Fri (R) TECHNIQUE: Noncontrast 5 mm thick sections acquired from the diaphragms to the symphysis. 5 mm thick coronal and sagittal reformats were then performed. For radiation dose reduction, the following was used: automated exposure control, adjustment of mA and/or kV according to patient size. COMPARISON: None. FINDINGS: Image quality: Excellent. Lung bases: There is linear atelectasis or scarring in the lung bases. Heart size is normal. Urinary system: There is a small dependent calcification within the urinary bladder measuring up to 0.4 cm adjacent to the left ureterovesicular junction likely representing a recently passed stone. There is mild left hydroureteronephrosis with perinephric and periureteral fat stranding. There is an additional punctate nonobstructing stone in the inferior pole of the left kidney. No right renal stones or right hydronephrosis. There is mild nonspecific right perinephric stranding. The bladder demonstrates normal wall thickness. Other solid organs: There is hypoattenuation of the liver compatible with fatty infiltration. The gallbladder is surgically absent. Pancreas is normal in contours. Spleen is borderline enlarged measuring up to 13.1 cm. No adrenal nodules. Peritoneum and bowel: Unenhanced bowel loops demonstrate normal wall thickness and caliber. No free fluid or air. Nodes and vessels: No retroperitoneal or mesenteric adenopathy by size criteria. Aorta and inferior vena cava are normal in caliber. Abdominal wall: No ventral hernias. Pelvis: No free pelvic fluid. The uterus is diminutive in size. There is a small indistinct hypodensity within the ventral wall which is nonspecific but suggestive of a fibroid. No inguinal hernias or adenopathy. Bones: No suspicious bony lesions. No vertebral body compression fractures. IMPRESSION: 1. Small stone within the urinary bladder adjacent to the left UVJ likely representing a recently passed stone. 2. Mild left hydroureteronephrosis with perinephric and periureteral fat stranding. 3. Punctate nonobstructing stone within the inferior pole of the left kidney. 4. Hepatic steatosis. Dictated by: Ever Cisneros M.D. on 08/20/2018 at 18:34 Approved by: Ever Cisneros M.D. on 08/20/2018 at 18:40 <Desiree Chowdary DO - Last Filed: 08/21/18 03:15> Lab Data Lab Results 08/20/18 08/20/18 08/20/18 Range/Units 14:28 14:28 14:28 WBC 10.1 (4.5-11.0) X10^3/uL RBC 4.63 (4.0-5.2) X10^6/uL Hgb 13.4 (12.0-16.0) g/dL Hct 39.3 (36-46) % MCV 85.0 (80-100) fL MCH 28.9 (26-34) PG MCHC 34.0 (30-36) % RDW 14.1 (11.6-14.8) % Plt Count 278 (150-400) X10^3/uL Neut % (Auto) 60.2 (50-75) % Lymph % (Auto) 30.4 (25-40) % [place] % (Auto) 6.0 (3-14) % Eos % (Auto) 2.1 (2-4) % Baso % (Auto) 1.3 (0-2) % Neut # (Auto) 6100 (3049-3631) /uL Lymph # (Auto) 3100 (9245-4515) /uL [place] # (Auto) 600 (0-900) /uL Eos # (Auto) 200 (0-450) /uL Baso # (Auto) 100 (0-100) /uL PT 11.0 (10.1-12.7) SECONDS INR 1.0 (0.9-1.3) APTT 32 (26.4-36.2) SECONDS Sodium 134 L (137-145) mmol/L Potassium 4.2 (3.4-5.1) mmol/L Chloride 100 (98-107) mmol/L Carbon Dioxide 27 (22-32) mmol/L BUN 13 (7-17) mg/dL Creatinine 0.90 (0.52-1.04) mg/dL Estimated GFR > 60.0 (>60) mL/min BUN/Creatinine Ratio 14.4 (6-22) Glucose 293 H (70-100) mg/dL Calcium 9.0 (8.4-10.2) mg/dL Total Bilirubin 0.4 (0.2-1.3) mg/dL AST 16 (14-36) IU/L ALT 10 (9-52) IU/L Alkaline Phosphatase 102 (38-126) U/L Total Protein 6.1 L (6.3-8.2) g/dL Albumin 3.5 (3.5-5.0) g/dL Globulin 2.6 (1.7-4.1) g/dL Albumin/Globulin Ratio 1.3 (1.0-2.8) Lipase 15 L (23-300) U/L Urine RBC (0-5/HPF) Urine WBC (0-5/HPF) Ur Squamous Epith Cells (0-5/HPF) Amorphous Sediment Urine Bacteria (None) Ur Culture Indicated? 08/20/18 Range/Units 16:50 WBC (4.5-11.0) X10^3/uL RBC (4.0-5.2) X10^6/uL Hgb (12.0-16.0) g/dL Hct (36-46) % MCV (80-100) fL MCH (26-34) PG MCHC (30-36) % RDW (11.6-14.8) % Plt Count (150-400) X10^3/uL Neut % (Auto) (50-75) % Lymph % (Auto) (25-40) % [place] % (Auto) (3-14) % Eos % (Auto) (2-4) % Baso % (Auto) (0-2) % Neut # (Auto) (3440-1384) /uL Lymph # (Auto) (5495-7105) /uL [place] # (Auto) (0-900) /uL Eos # (Auto) (0-450) /uL Baso # (Auto) (0-100) /uL PT (10.1-12.7) SECONDS INR (0.9-1.3) APTT (26.4-36.2) SECONDS Sodium (137-145) mmol/L Potassium (3.4-5.1) mmol/L Chloride (98-107) mmol/L Carbon Dioxide (22-32) mmol/L BUN (7-17) mg/dL Creatinine (0.52-1.04) mg/dL Estimated GFR (>60) mL/min BUN/Creatinine Ratio (6-22) Glucose (70-100) mg/dL Calcium (8.4-10.2) mg/dL Total Bilirubin (0.2-1.3) mg/dL AST (14-36) IU/L ALT (9-52) IU/L Alkaline Phosphatase (38-126) U/L Total Protein (6.3-8.2) g/dL Albumin (3.5-5.0) g/dL Globulin (1.7-4.1) g/dL Albumin/Globulin Ratio (1.0-2.8) Lipase (23-300) U/L Urine RBC 5-10/hpf H (0-5/HPF) Urine WBC 1-5/hpf (0-5/HPF) Ur Squamous Epith Cells 1-5 /hpf (0-5/HPF) Amorphous Sediment 1+ Urine Bacteria Occasional (0-1) (None) Ur Culture Indicated? Cult not indicated Point of Care Testing Test Results Negative Urine Dip Bedside Urine Glucose 500 mg/dl Bedside Urine Bilirubin - Negative Bedside Urine Ketone - Negative Urine Specific [place] 1.015 Bedside Urine Occult Blood ++ Bedside Urine pH 7.5 Bedside Urine Protein - Negative Bedside Urine Urobilinogen +/- 1mg Bedside Urine Nitrite - Negative Bedside Urine Leukocytes - Negative Esterase Discharge Plan Departure Patient Disposition: Home Clinical Impression: Kidney stone on left side Discharge Date/Time: 08/20/18 20:29 Interventions: ED Discharge Assessment Last Done: 08/20/18 20:29 Instructions: DI for Kidney Stones Activity Restrictions/Additional Instructions: There was no acute problem found on your lab work today, you do not appear to have a urinary infection. You do appear to have a kidney stone that has passed where it was causing the obstruction, and since you are feeling better and able to keep down fluids and medicines, I think you can go home to rest tonight and follow up with your PCP tomorrow as you have planned. You should return to the emergency department as we talked about if you have acutely worsening symptoms again. You can take the prescription pain medicine as you needed as well as the nausea medicine that I prescribed for you. I did prescribe a few Flomax for you as well (you do not need any more today) in case Dr. Noel wants to have you continue them for a few days. Prescriptions: New tamsulosin [Flomax] 0.4 mg capsule 0.4 mg PO DAILY Qty: 4 RF: 0 ondansetron 4 mg tablet,disintegrating 4 mg PO DAILY PRN (Reason: nausea and vomiting) Qty: 7 RF: 0 hydrocodone-ibuprofen 5-200 mg tablet 1 tab PO Q4-6H PRN (Reason: acute kidney stone pain) Qty: 5 RF: 0 No Action ibuprofen 800 mg tablet 800 mg PO Q8H PRN (Reason: pain) Qty: 30 RF: 0 atorvastatin 10 mg tablet 1 tab PO QPM RF: 0 baclofen 10 mg tablet 1 tab PO BID PRN (Reason: Spasms) RF: 0 diazepam 10 mg tablet 1 tab PO BID PRN (Reason: Spasms) RF: 0 fluconazole 100 mg tablet 1 tab PO PRN PRN (Reason: migraine) RF: 0 meclizine 12.5 mg tablet 1 tab PO DAILY RF: 0 gabapentin 300 mg capsule 1 tab PO TID RF: 0 levothyroxine 200 mcg tablet 200 mcg PO DAILY RF: 0 topiramate 100 mg tablet 100 mg PO DAILY RF: 0 metoclopramide HCl 10 mg tablet 1 tab PO DAILY RF: 0 eletriptan 40 mg tablet 1 tab PO PRN PRN (Reason: Migraine Headache) RF: 0 milnacipran 100 mg tablet 1 tab PO BID RF: 0 empagliflozin 10 mg tablet 1 tab PO DAILY RF: 0 hydrochlorothiazide 12.5 mg PO DAILY RF: 0 triamcinolone acetonide 0.1 % cream See Rx Instructions .ROUTE .COMPLEX RF: 0 zolpidem 5 mg tablet 5 mg PO BEDTIME PRN (Reason: Insomnia) RF: 0 levofloxacin 500 mg Tablet 500 mg PO DAILY Qty: 7 RF: 0 hydrocodone-acetaminophen 5-325 mg tablet 1 - 2 tab PO Q6H PRN (Reason: pain) RF: 0 promethazine 12.5 mg tablet 12.5 mg PO Q6H PRN (Reason: Nausea And Vomiting) RF: 0 furosemide 20 mg tablet 10 mg PO RF: 0 Novolog Flexpen U-100 Insulin 100 unit/mL (3 mL) insulin pen RF: 0 Lantus Solostar U-100 Insulin 100 unit/mL (3 mL) insulin pen RF: 0 [place] 100 mg tablet RF: 0 Referrals: Cedric Noel DO [Primary Care Provider] - <Desiree Chowdary DO - Last Filed: 08/21/18 03:15> Cosign ED Attending Cosjose alfredoature Attestation: I was immediately available in the department for consultation. Documentation has been reviewed. I agree with assessment and plan.
--- NOTE | 2018-08-20 17:53 | DI.CT.S_ITS ---
PROCEDURE: CT KIDNEY URETER BLADDER (KUB) INDICATIONS: persistent pain, small obstructing stones (2-3mm) Fri (R) TECHNIQUE: Noncontrast 5 mm thick sections acquired from the diaphragms to the symphysis. 5 mm thick coronal and sagittal reformats were then performed. For radiation dose reduction, the following was used: automated exposure control, adjustment of mA and/or kV according to patient size. COMPARISON: None. FINDINGS: Image quality: Excellent. Lung bases: There is linear atelectasis or scarring in the lung bases. Heart size is normal. Urinary system: There is a small dependent calcification within the urinary bladder measuring up to 0.4 cm adjacent to the left ureterovesicular junction likely representing a recently passed stone. There is mild left hydroureteronephrosis with perinephric and periureteral fat stranding. There is an additional punctate nonobstructing stone in the inferior pole of the left kidney. No right renal stones or right hydronephrosis. There is mild nonspecific right perinephric stranding. The bladder demonstrates normal wall thickness. Other solid organs: There is hypoattenuation of the liver compatible with fatty infiltration. The gallbladder is surgically absent. Pancreas is normal in contours. Spleen is borderline enlarged measuring up to 13.1 cm. No adrenal nodules. Peritoneum and bowel: Unenhanced bowel loops demonstrate normal wall thickness and caliber. No free fluid or air. Nodes and vessels: No retroperitoneal or mesenteric adenopathy by size criteria. Aorta and inferior vena cava are normal in caliber. Abdominal wall: No ventral hernias. Pelvis: No free pelvic fluid. The uterus is diminutive in size. There is a small indistinct hypodensity within the ventral wall which is nonspecific but suggestive of a fibroid. No inguinal hernias or adenopathy. Bones: No suspicious bony lesions. No vertebral body compression fractures. IMPRESSION: 1. Small stone within the urinary bladder adjacent to the left UVJ likely representing a recently passed stone. 2. Mild left hydroureteronephrosis with perinephric and periureteral fat stranding. 3. Punctate nonobstructing stone within the inferior pole of the left kidney. 4. Hepatic steatosis. Dictated by: Ever Cisneros M.D. on 08/20/2018 at 18:34 Approved by: Ever Cisneros M.D. on 08/20/2018 at 18:40
[2018-08-20 17:54] LABS: RBC Urine 5-10/HPF (0-5/HPF)
[2018-08-20 17:55] LABS: Amorphous Sediment Urine 1+; Bacteria Urine Occasional (0-1); Squamous Epithelial Cell Urine 1-5 /HPF (0-5/HPF); WBC Urine 1-5/HPF (0-5/HPF)
[2018-08-20 17:56] LABS: Culture Indicated Urine Cult Not Indicated
[2018-08-20] MEDS: TAMSULOSIN 0.4 MG CAPSULE PO (18:01)
[2018-08-20] MEDS: KETOROLAC 60 MG/2 ML VIAL 30 MG IV (18:01)
[2018-08-20] MEDS: SODIUM CHLORIDE 0.9% 1,000 ML 1000 ML IV (18:01)
--- NOTE | 2018-08-20 18:09 | ED_ITS ---
HPI - Female Genitourinary <Geraldine Rich PA-C - Last Filed: 08/20/18 21:16> General Chief complaint: Urogenital-Female Stated complaint: Kidney stone obstruction Time Seen by Provider: 08/20/18 17:12 Source: patient and old records reviewed Mode of arrival: ambulatory Limitations: no limitations History of Present Illness HPI Narrative: This 43-year-old female comes to ED secondary to persistent kidney stone pain in the left flank and groin area. She was seen at another local ED 08/17 and diagnosed with 2 and 3 mm stones 1 of which was obstructing. She states that pain did not get better at the ED. The Vicoprofen that she takes at home does help somewhat. She states she has had persistent nausea and intermittent vomiting but no vomiting today. She states she has had a small amount of water today, maybe 8 or 10 oz when she usually drinks much more. She states she ate an [employer] but has not had other food today. She states that she has had fevers of 100-101 range this whole time, but none observed at her ED visits. She states that today she did start to have some dysuria, has not had any before today. She has not had any new hematuria or urinary frequency. She states that she has not had a bowel movement since Monday. She denies it cough, chest pain, upper respiratory symptoms, new pain in her extremities or other new symptoms today. She states she is concerned about the obstructing stones, possible infection and her history of sepsis with persistent pain. She feels like pain has gradually gotten somewhat worse. Describes as constant, with intermittent sharp pain that can radiate down into her groin or up into her back briefly. No exacerbating or alleviating features. Patient notes that she could not tolerate Dilaudid at her recent ED visit, does take Vicoprofen at home and this has helped pain (avoids regular APAP due to elevated LFTs) Related Data Home Medications Medication Instructions Recorded Confirmed atorvastatin 1 tab PO QPM 02/07/18 08/20/18 baclofen 1 tab PO BID PRN 02/07/18 08/20/18 diazepam 1 tab PO BID PRN 02/07/18 08/20/18 eletriptan 1 tab PO PRN PRN 02/07/18 02/07/18 empagliflozin 1 tab PO DAILY 02/07/18 02/07/18 fluconazole 1 tab PO PRN PRN 02/07/18 02/07/18 gabapentin 1 tab PO TID 02/07/18 02/07/18 hydrochlorothiazide 12.5 mg PO DAILY 02/07/18 02/07/18 levothyroxine 200 mcg PO DAILY 02/07/18 08/20/18 meclizine 1 tab PO DAILY 02/07/18 02/07/18 metoclopramide HCl 1 tab PO DAILY 02/07/18 02/07/18 milnacipran 1 tab PO BID 02/07/18 08/20/18 topiramate 100 mg PO DAILY 02/07/18 08/20/18 triamcinolone acetonide See Rx Instructions .ROUTE .COMPLEX 02/07/18 02/07/18 zolpidem 5 mg PO BEDTIME PRN 02/07/18 08/20/18 furosemide 10 mg PO 08/20/18 hydrocodone-acetaminophen 1 - 2 tab PO Q6H PRN 08/20/18 08/20/18 insulin aspart U-100 [Novolog 08/20/18 Flexpen U-100 Insulin] insulin glargine [Lantus Solostar 08/20/18 U-100 Insulin] milnacipran [Savella] 08/20/18 promethazine 12.5 mg PO Q6H PRN 08/20/18 08/20/18 Previous Rx's Medication Instructions Recorded ibuprofen 800 mg PO Q8H PRN #30 tab 01/27/18 levofloxacin 500 mg PO DAILY #7 tab 02/11/18 hydrocodone-ibuprofen 1 tab PO Q4-6H PRN #5 tab 08/20/18 ondansetron 4 mg PO DAILY PRN #7 tab 08/20/18 tamsulosin [Flomax] 0.4 mg PO DAILY #4 cap 08/20/18 Allergies Allergy/AdvReac Type Severity Reaction Status Date / Time codeine Allergy Severe Rash Verified 08/20/18 17:18 lovastatin [From Advicor] Allergy Severe Anaphylaxis Verified 08/20/18 17:16 niacin [From Advicor] Allergy Severe Anaphylaxis Verified 08/20/18 17:16 pseudoephedrine Allergy Severe Anaphylaxis Verified 08/20/18 17:18 red (food color) Allergy Severe Anaphylaxis Verified 08/20/18 17:18 Penicillins Allergy Intermediate Rash Verified 08/20/18 17:18 ampicillin Allergy Rash Verified 08/20/18 13:41 erythromycin base Allergy Verified 08/20/18 13:41 glatiramer (copolymer 1) Allergy Verified 08/20/18 13:41 interferon beta-1a Allergy itching Verified 08/20/18 13:41 and rash lisinopril Allergy Kidneys Verified 08/20/18 13:41 shut down metformin Allergy Gastrointestinal Verified 08/20/18 13:41 Upset Sulfa (Sulfonamide Allergy Verified 08/20/18 13:41 Antibiotics) artificial sweetners Allergy Uncoded 08/20/18 13:41 barium Allergy Uncoded 08/20/18 13:41 Review of Systems <Geraldine Rich PA-C - Last Filed: 08/20/18 21:16> Review of Systems ROS Unobtainable: All systems reviewed & are unremarkable except as noted in HPI and below PFSH <Geraldine Rich PA-C - Last Filed: 08/20/18 21:16> Medical History Chronically low serum potassium (Acute) Diabetes (Acute) Fibromyalgia (Acute) Low sodium levels (Acute) Low vitamin D level (Acute) Multiple sclerosis (Acute) Surgical History No pertinent past surgical history (Acute) Social History (Updated 02/06/18 @ 21:04 by Brandon Lr DO) marital status: household members: spouse and children Smoking Status: Never smoker Social History marital status: household members: spouse and children Smoking Status: Never smoker Exam <Geraldine Rich PA-C - Last Filed: 08/20/18 21:16> Narrative Exam Narrative: GENERAL APPEARANCE: Patient sitting comfortably, in no distress. HEENT: PERRL, EOMI, no scleral icterus NECK: Supple LUNGS: Clear to auscultation bilaterally. HEART: Rate and rhythm regular, normal S1 and S2, no S3 or S4. ABDOMEN: Soft, nondistended, bowel sounds present x 4 quadrants, no masses palpable, no hepatosplenomegaly. Mild left CVAT, moderate left lower/suprapubic tenderness without guarding or rebound EXTREMITIES: No edema, no cyanosis DERMATOLOGIC: No jaundice or exanthem NEUROLOGIC: Alert and oriented with normal speech and coordination Initial Vital Signs Initial Vital Signs: Vital Signs Temperature 97.9 F 08/20/18 13:41 Pulse Rate 114 H 08/20/18 13:41 Respiratory Rate 18 08/20/18 13:41 Blood Pressure 156/97 H 08/20/18 13:41 Pulse Oximetry 99 08/20/18 13:41 <Desiree Chowdary DO - Last Filed: 08/21/18 03:15> Initial Vital Signs Initial Vital Signs: Vital Signs Temperature 97.9 F 08/20/18 13:41 Pulse Rate 114 H 08/20/18 13:41 Respiratory Rate 18 08/20/18 13:41 Blood Pressure 156/97 H 08/20/18 13:41 Pulse Oximetry 99 08/20/18 13:41 Course <Geraldine Rich PA-C - Last Filed: 08/20/18 21:16> Additional Information: 08/17 is received from we would be general. Reviewed. WBC 12.5, neutrophil count 8.6, H&H normal. Sodium 137, potassium 3.7, BUN 8, creatinine 0.6, calcium 8.1, glucose 247, AST 23, ALT 16, alk phos 83, lipase 18, UA with moderate bacteria and squamous cells. CT shows 3 mm obstructing left you PJ calculus with left renal enlargement and perinephric stranding, and 2 mm lower pole stone. Otherwise unremarkable. Patient appeared improved during her stay, after Toradol appeared relaxed, texting on her cell phone. Nausea improved and was tolerating water at the time of discharge. Reviewed CT findings, still some inflammation present but it does look like the obstructing stone has passed the UVJ (read as 3 mm on previous scan, 4 mm calcification today). Since she is feeling improved, she can continue pain medication, Zofran at home. She was given a dose of Flomax here. She states she has also not had a bowel movement since Monday, equates somewhat with decreased intake, also pain meds. Given information for using MiraLax and juices for this which she believes she already has at home. She already has follow-up set up with her PCP tomorrow, and advised to keep that appointment as she may need a urology referral if not continuing to improve by then. She agreed to return to ED if feeling acutely worse again in the interim. Orders Ordered: Discontinued Medications Hydrocodone Bitart/Acetaminophen (Capitola 5/325) 2 tab PO NOW ONE Stop: 08/20/18 18:53 Last Admin: 08/20/18 19:04 Dose: 2 tab Sodium Chloride (Normal Saline 0.9%) 1,000 mls @ 1,000 mls/hr IV BOLUS ONE Stop: 08/20/18 18:44 Last Infusion: 08/20/18 18:58 Dose: 0 mls/hr Admin: 08/20/18 18:01 Dose: 1,000 mls/hr Ketorolac Tromethamine (Toradol) 30 mg IV NOW ONE Stop: 08/20/18 17:46 Last Admin: 08/20/18 18:01 Dose: 30 mg Ondansetron HCl (Zofran) 4 mg IV NOW ONE Stop: 08/20/18 14:41 Last Admin: 08/20/18 14:42 Dose: 4 mg Ondansetron HCl (Zofran) 4 mg IV NOW ONE Stop: 08/20/18 17:46 Last Admin: 08/20/18 18:01 Dose: 4 mg Tamsulosin HCl (Flomax) 0.4 mg PO NOW ONE Stop: 08/20/18 17:46 Last Admin: 08/20/18 18:01 Dose: 0.4 mg Vital Signs - 8 hr 08/20/18 19:58 Pulse Rate 103 H Respiratory Rate 18 Blood Pressure [Left Arm] 131/85 Pulse Oximetry 99 <Desiree Chowdary, - Last Filed: 08/21/18 03:15> Orders Ordered: Discontinued Medications Hydrocodone Bitart/Acetaminophen (Capitola 5/325) 2 tab PO NOW ONE Stop: 08/20/18 18:53 Last Admin: 08/20/18 19:04 Dose: 2 tab Sodium Chloride (Normal Saline 0.9%) 1,000 mls @ 1,000 mls/hr IV BOLUS ONE Stop: 08/20/18 18:44 Last Infusion: 08/20/18 18:58 Dose: 0 mls/hr Admin: 08/20/18 18:01 Dose: 1,000 mls/hr Ketorolac Tromethamine (Toradol) 30 mg IV NOW ONE Stop: 08/20/18 17:46 Last Admin: 08/20/18 18:01 Dose: 30 mg Ondansetron HCl (Zofran) 4 mg IV NOW ONE Stop: 08/20/18 14:41 Last Admin: 08/20/18 14:42 Dose: 4 mg Ondansetron HCl (Zofran) 4 mg IV NOW ONE Stop: 08/20/18 17:46 Last Admin: 08/20/18 18:01 Dose: 4 mg Tamsulosin HCl (Flomax) 0.4 mg PO NOW ONE Stop: 08/20/18 17:46 Last Admin: 08/20/18 18:01 Dose: 0.4 mg Vital Signs - 8 hr 08/20/18 19:58 Pulse Rate 103 H Respiratory Rate 18 Blood Pressure [Left Arm] 131/85 Pulse Oximetry 99 MDM - Female Genitourinary <Geraldine Rich PA-C - Last Filed: 08/20/18 21:16> Lab Data Attestation: I reviewed the patient's lab results. Result diagrams: 08/20/18 14:28 08/20/18 14:28 Lab Results 08/20/18 08/20/18 08/20/18 Range/Units 14:28 14:28 14:28 WBC 10.1 (4.5-11.0) X10^3/uL RBC 4.63 (4.0-5.2) X10^6/uL Hgb 13.4 (12.0-16.0) g/dL Hct 39.3 (36-46) % MCV 85.0 (80-100) fL MCH 28.9 (26-34) PG MCHC 34.0 (30-36) % RDW 14.1 (11.6-14.8) % Plt Count 278 (150-400) X10^3/uL Neut % (Auto) 60.2 (50-75) % Lymph % (Auto) 30.4 (25-40) % [place] % (Auto) 6.0 (3-14) % Eos % (Auto) 2.1 (2-4) % Baso % (Auto) 1.3 (0-2) % Neut # (Auto) 6100 (3881-1964) /uL Lymph # (Auto) 3100 (9589-4912) /uL [place] # (Auto) 600 (0-900) /uL Eos # (Auto) 200 (0-450) /uL Baso # (Auto) 100 (0-100) /uL PT 11.0 (10.1-12.7) SECONDS INR 1.0 (0.9-1.3) APTT 32 (26.4-36.2) SECONDS Sodium 134 L (137-145) mmol/L Potassium 4.2 (3.4-5.1) mmol/L Chloride 100 (98-107) mmol/L Carbon Dioxide 27 (22-32) mmol/L BUN 13 (7-17) mg/dL Creatinine 0.90 (0.52-1.04) mg/dL Estimated GFR > 60.0 (>60) mL/min BUN/Creatinine Ratio 14.4 (6-22) Glucose 293 H (70-100) mg/dL Calcium 9.0 (8.4-10.2) mg/dL Total Bilirubin 0.4 (0.2-1.3) mg/dL AST 16 (14-36) IU/L ALT 10 (9-52) IU/L Alkaline Phosphatase 102 (38-126) U/L Total Protein 6.1 L (6.3-8.2) g/dL Albumin 3.5 (3.5-5.0) g/dL Globulin 2.6 (1.7-4.1) g/dL Albumin/Globulin Ratio 1.3 (1.0-2.8) Lipase 15 L (23-300) U/L Urine RBC (0-5/HPF) Urine WBC (0-5/HPF) Ur Squamous Epith Cells (0-5/HPF) Amorphous Sediment Urine Bacteria (None) Ur Culture Indicated? 08/20/18 Range/Units 16:50 WBC (4.5-11.0) X10^3/uL RBC (4.0-5.2) X10^6/uL Hgb (12.0-16.0) g/dL Hct (36-46) % MCV (80-100) fL MCH (26-34) PG MCHC (30-36) % RDW (11.6-14.8) % Plt Count (150-400) X10^3/uL Neut % (Auto) (50-75) % Lymph % (Auto) (25-40) % [place] % (Auto) (3-14) % Eos % (Auto) (2-4) % Baso % (Auto) (0-2) % Neut # (Auto) (8340-1182) /uL Lymph # (Auto) (0218-4936) /uL [place] # (Auto) (0-900) /uL Eos # (Auto) (0-450) /uL Baso # (Auto) (0-100) /uL PT (10.1-12.7) SECONDS INR (0.9-1.3) APTT (26.4-36.2) SECONDS Sodium (137-145) mmol/L Potassium (3.4-5.1) mmol/L Chloride (98-107) mmol/L Carbon Dioxide (22-32) mmol/L BUN (7-17) mg/dL Creatinine (0.52-1.04) mg/dL Estimated GFR (>60) mL/min BUN/Creatinine Ratio (6-22) Glucose (70-100) mg/dL Calcium (8.4-10.2) mg/dL Total Bilirubin (0.2-1.3) mg/dL AST (14-36) IU/L ALT (9-52) IU/L Alkaline Phosphatase (38-126) U/L Total Protein (6.3-8.2) g/dL Albumin (3.5-5.0) g/dL Globulin (1.7-4.1) g/dL Albumin/Globulin Ratio (1.0-2.8) Lipase (23-300) U/L Urine RBC 5-10/hpf H (0-5/HPF) Urine WBC 1-5/hpf (0-5/HPF) Ur Squamous Epith Cells 1-5 /hpf (0-5/HPF) Amorphous Sediment 1+ Urine Bacteria Occasional (0-1) (None) Ur Culture Indicated? Cult not indicated Point of Care Testing Test Results Negative Urine Dip Bedside Urine Glucose 500 mg/dl Bedside Urine Bilirubin - Negative Bedside Urine Ketone - Negative Urine Specific [place] 1.015 Bedside Urine Occult Blood ++ Bedside Urine pH 7.5 Bedside Urine Protein - Negative Bedside Urine Urobilinogen +/- 1mg Bedside Urine Nitrite - Negative Bedside Urine Leukocytes - Negative Esterase Imaging Data CT scan - abdomen: Radiologist's impression: 43 Geraldine Fishfader, PA-C Find Patient Imaging Josie Silvestre 43 F 1975 ACTIVITY DATE EXAM STATUS AUTHOR 08/20/18 17:[address] [address] [address] Scan Report Signed Patient: Josie Silvestre MMR#: [id number] : 1975Acct:[id number] Age/Sex: 43 / FDate of Service: 08/20/18 Loc: ED Accession Number: [id number] Procedure: CT kidney ureter bladder (KUB) Ordering Provider: Geraldine Rich P.A-C PROCEDURE: CT KIDNEY URETER BLADDER (KUB) INDICATIONS: persistent pain, small obstructing stones (2-3mm) Fri (R) TECHNIQUE: Noncontrast 5 mm thick sections acquired from the diaphragms to the symphysis. 5 mm thick coronal and sagittal reformats were then performed. For radiation dose reduction, the following was used: automated exposure control, adjustment of mA and/or kV according to patient size. COMPARISON: None. FINDINGS: Image quality: Excellent. Lung bases: There is linear atelectasis or scarring in the lung bases. Heart size is normal. Urinary system: There is a small dependent calcification within the urinary bladder measuring up to 0.4 cm adjacent to the left ureterovesicular junction likely representing a recently passed stone. There is mild left hydroureteronephrosis with perinephric and periureteral fat stranding. There is an additional punctate nonobstructing stone in the inferior pole of the left kidney. No right renal stones or right hydroneph rosis. There is mild nonspecific right perinephric stranding. The bladder demonstrates normal wall thickness. Other solid organs: There is hypoattenuation of the liver compatible with fatty infiltration. The gallbladder is surgically absent. Pancreas is normal in contours. Spleen is borderline enlarged measuring up to 13.1 cm. No adrenal nodules. Peritoneum and bowel: Unenhanced bowel loops demonstrate normal wall thickness and caliber. No free fluid or air. Nodes and vessels: No retroperitoneal or mesenteric adenopathy by size criteria. Aorta and inferior vena cava are normal in caliber. Abdominal wall: No ventral hernias. Pelvis: No free pelvic fluid. The uterus is diminutive in size. There is a small indistinct hypodensity within the ventral wall which is nonspecific but suggestive of a fibroid. No inguinal hernias or adenopathy. Bones: No suspicious bony lesions. No vertebral body compression fractures. IMPRESSION: 1. Small stone within the urinary bladder adjacent to the left UVJ likely representing a recently passed stone. 2. Mild left hydroureteronephrosis with perinephric and periureteral fat stranding. 3. Punctate nonobstructing stone within the inferior pole of the left kidney. 4. Hepatic steatosis. Dictated by: Ever Cisneros M.D. on 08/20/2018 at 18:34 Approved by: Ever Cisneros M.D. on 08/20/2018 at 18:40 <Desiree Chowdary DO - Last Filed: 08/21/18 03:15> Lab Data Lab Results 08/20/18 08/20/18 08/20/18 Range/Units 14:28 14:28 14:28 WBC 10.1 (4.5-11.0) X10^3/uL RBC 4.63 (4.0-5.2) X10^6/uL Hgb 13.4 (12.0-16.0) g/dL Hct 39.3 (36-46) % MCV 85.0 (80-100) fL MCH 28.9 (26-34) PG MCHC 34.0 (30-36) % RDW 14.1 (11.6-14.8) % Plt Count 278 (150-400) X10^3/uL Neut % (Auto) 60.2 (50-75) % Lymph % (Auto) 30.4 (25-40) % [place] % (Auto) 6.0 (3-14) % Eos % (Auto) 2.1 (2-4) % Baso % (Auto) 1.3 (0-2) % Neut # (Auto) 6100 (7980-1082) /uL Lymph # (Auto) 3100 (7502-9955) /uL [place] # (Auto) 600 (0-900) /uL Eos # (Auto) 200 (0-450) /uL Baso # (Auto) 100 (0-100) /uL PT 11.0 (10.1-12.7) SECONDS INR 1.0 (0.9-1.3) APTT 32 (26.4-36.2) SECONDS Sodium 134 L (137-145) mmol/L Potassium 4.2 (3.4-5.1) mmol/L Chloride 100 (98-107) mmol/L Carbon Dioxide 27 (22-32) mmol/L BUN 13 (7-17) mg/dL Creatinine 0.90 (0.52-1.04) mg/dL Estimated GFR > 60.0 (>60) mL/min BUN/Creatinine Ratio 14.4 (6-22) Glucose 293 H (70-100) mg/dL Calcium 9.0 (8.4-10.2) mg/dL Total Bilirubin 0.4 (0.2-1.3) mg/dL AST 16 (14-36) IU/L ALT 10 (9-52) IU/L Alkaline Phosphatase 102 (38-126) U/L Total Protein 6.1 L (6.3-8.2) g/dL Albumin 3.5 (3.5-5.0) g/dL Globulin 2.6 (1.7-4.1) g/dL Albumin/Globulin Ratio 1.3 (1.0-2.8) Lipase 15 L (23-300) U/L Urine RBC (0-5/HPF) Urine WBC (0-5/HPF) Ur Squamous Epith Cells (0-5/HPF) Amorphous Sediment Urine Bacteria (None) Ur Culture Indicated? 08/20/18 Range/Units 16:50 WBC (4.5-11.0) X10^3/uL RBC (4.0-5.2) X10^6/uL Hgb (12.0-16.0) g/dL Hct (36-46) % MCV (80-100) fL MCH (26-34) PG MCHC (30-36) % RDW (11.6-14.8) % Plt Count (150-400) X10^3/uL Neut % (Auto) (50-75) % Lymph % (Auto) (25-40) % [place] % (Auto) (3-14) % Eos % (Auto) (2-4) % Baso % (Auto) (0-2) % Neut # (Auto) (3340-5347) /uL Lymph # (Auto) (8460-0292) /uL [place] # (Auto) (0-900) /uL Eos # (Auto) (0-450) /uL Baso # (Auto) (0-100) /uL PT (10.1-12.7) SECONDS INR (0.9-1.3) APTT (26.4-36.2) SECONDS Sodium (137-145) mmol/L Potassium (3.4-5.1) mmol/L Chloride (98-107) mmol/L Carbon Dioxide (22-32) mmol/L BUN (7-17) mg/dL Creatinine (0.52-1.04) mg/dL Estimated GFR (>60) mL/min BUN/Creatinine Ratio (6-22) Glucose (70-100) mg/dL Calcium (8.4-10.2) mg/dL Total Bilirubin (0.2-1.3) mg/dL AST (14-36) IU/L ALT (9-52) IU/L Alkaline Phosphatase (38-126) U/L Total Protein (6.3-8.2) g/dL Albumin (3.5-5.0) g/dL Globulin (1.7-4.1) g/dL Albumin/Globulin Ratio (1.0-2.8) Lipase (23-300) U/L Urine RBC 5-10/hpf H (0-5/HPF) Urine WBC 1-5/hpf (0-5/HPF) Ur Squamous Epith Cells 1-5 /hpf (0-5/HPF) Amorphous Sediment 1+ Urine Bacteria Occasional (0-1) (None) Ur Culture Indicated? Cult not indicated Point of Care Testing Test Results Negative Urine Dip Bedside Urine Glucose 500 mg/dl Bedside Urine Bilirubin - Negative Bedside Urine Ketone - Negative Urine Specific [place] 1.015 Bedside Urine Occult Blood ++ Bedside Urine pH 7.5 Bedside Urine Protein - Negative Bedside Urine Urobilinogen +/- 1mg Bedside Urine Nitrite - Negative Bedside Urine Leukocytes - Negative Esterase Discharge Plan Departure Patient Disposition: Home Clinical Impression: Kidney stone on left side Discharge Date/Time: 08/20/18 20:29 Interventions: ED Discharge Assessment Last Done: 08/20/18 20:29 Instructions: DI for Kidney Stones Activity Restrictions/Additional Instructions: There was no acute problem found on your lab work today, you do not appear to have a urinary infection. You do appear to have a kidney stone that has passed where it was causing the obstruction, and since you are feeling better and able to keep down fluids and medicines, I think you can go home to rest tonight and follow up with your PCP tomorrow as you have planned. You should return to the emergency department as we talked about if you have acutely worsening symptoms again. You can take the prescription pain medicine as you needed as well as the nausea medicine that I prescribed for you. I did prescribe a few Flomax for you as well (you do not need any more today) in case Dr. Noel wants to have you continue them for a few days. Prescriptions: New tamsulosin [Flomax] 0.4 mg capsule 0.4 mg PO DAILY Qty: 4 RF: 0 ondansetron 4 mg tablet,disintegrating 4 mg PO DAILY PRN (Reason: nausea and vomiting) Qty: 7 RF: 0 hydrocodone-ibuprofen 5-200 mg tablet 1 tab PO Q4-6H PRN (Reason: acute kidney stone pain) Qty: 5 RF: 0 No Action ibuprofen 800 mg tablet 800 mg PO Q8H PRN (Reason: pain) Qty: 30 RF: 0 atorvastatin 10 mg tablet 1 tab PO QPM RF: 0 baclofen 10 mg tablet 1 tab PO BID PRN (Reason: Spasms) RF: 0 diazepam 10 mg tablet 1 tab PO BID PRN (Reason: Spasms) RF: 0 fluconazole 100 mg tablet 1 tab PO PRN PRN (Reason: migraine) RF: 0 meclizine 12.5 mg tablet 1 tab PO DAILY RF: 0 gabapentin 300 mg capsule 1 tab PO TID RF: 0 levothyroxine 200 mcg tablet 200 mcg PO DAILY RF: 0 topiramate 100 mg tablet 100 mg PO DAILY RF: 0 metoclopramide HCl 10 mg tablet 1 tab PO DAILY RF: 0 eletriptan 40 mg tablet 1 tab PO PRN PRN (Reason: Migraine Headache) RF: 0 milnacipran 100 mg tablet 1 tab PO BID RF: 0 empagliflozin 10 mg tablet 1 tab PO DAILY RF: 0 hydrochlorothiazide 12.5 mg PO DAILY RF: 0 triamcinolone acetonide 0.1 % cream See Rx Instructions .ROUTE .COMPLEX RF: 0 zolpidem 5 mg tablet 5 mg PO BEDTIME PRN (Reason: Insomnia) RF: 0 levofloxacin 500 mg Tablet 500 mg PO DAILY Qty: 7 RF: 0 hydrocodone-acetaminophen 5-325 mg tablet 1 - 2 tab PO Q6H PRN (Reason: pain) RF: 0 promethazine 12.5 mg tablet 12.5 mg PO Q6H PRN (Reason: Nausea And Vomiting) RF: 0 furosemide 20 mg tablet 10 mg PO RF: 0 Novolog Flexpen U-100 Insulin 100 unit/mL (3 mL) insulin pen RF: 0 Lantus Solostar U-100 Insulin 100 unit/mL (3 mL) insulin pen RF: 0 Savella 100 mg tablet RF: 0 Referrals: Cedric Noel DO [Primary Care Provider] - <Desiree Chowdary DO - Last Filed: 08/21/18 03:15> Cosign ED Attending Cosignature Attestation: I was immediately available in the department for consultation. Documentation has been reviewed. I agree with assessment and plan.
[2018-08-20 18:25] VITALS: BP 141/83; PULSE 103; RESP 17; O2SAT 100
[2018-08-20 19:00] VITALS: BP 132/79; PULSE 103; RESP 18; O2SAT 100
[2018-08-20] MEDS: HYDROCODONE/ACET 5/325 TABLET 2 TAB PO (19:04)
[2018-08-20 19:58] VITALS: BP 131/85; PULSE 103; RESP 18; O2SAT 99
== END 2018-08-20 20:29 | disposition home or self-care (01) ==
PROVIDERS: Emergency Medicine; Emergency Provider Internal Medicine; Family Provider Family Medicine; PCP Family Medicine
DX: N20.0 Calculus of kidney (principal)
CPT/HCPCS: 36591; 74176; 80053; 81003; 81015; 81025; 83690; 85025; 85610; 85730; 96361; 96374; 96375; 96376; 99283; 99284; J1885; J2405

== ENCOUNTER → 2018-11-08 12:17 | Outpatient (CLI) | payer MEDICARE, OTHER, SELFPAY ==
--- NOTE | 2018-11-08 | DI.CT.S_ITS ---
PROCEDURE: CT FACIAL BONES WO/W CON INDICATIONS: Right parotid swelling. edema, unspec TECHNIQUE: After the administration of intravenous contrast, 2.5 mm axial sections acquired from the mid-neck to the frontal sinuses, with coronal and sagittal reformats. For radiation dose reduction, the following was used: automated exposure control, adjustment of mA and/or kV according to patient size. COMPARISON: [facility], CT, CT FACIAL BONES W CON, 02/06/2018, 19:10. FINDINGS: Image quality: Excellent. Soft tissues: In this patient with this given history, scrutiny is given to the parotid glands. The parotid glands demonstrate a normal, symmetric appearance, with mild fatty replacement. On precontrast imaging, no stones are seen involving the parotid glands or along the courses of the parotid ducts. On postcontrast imaging, the parotid glands demonstrate normal, symmetric enhancement. No jacoby masses are seen. Likely subcentimeter lymph nodes are seen associated with the parotid glands, which are considered to be within normal limits. The largest is seen in the left, as on series 6 image 26 measuring 5 mm. The submandibular glands demonstrate a normal, symmetric appearance. No edema, masses, or fluid collections. No enlarged lymph nodes. Vascular: Visualized vascular structures appear patent throughout. Bony vascular foramina and canals appear normal. Bones: Facial bones appear intact, without fractures, erosions, or destruction. Visualized portions of the skull base and auditory canals also appear normal. Sinuses: Paranasal sinuses are aerated without fluid levels, mucosal thickening, or mucoceles. Mastoid air cells are aerated. IMPRESSION: Unremarkable study, with normal-appearing, symmetric parotid glands. No parotid masses are seen. No parotid stones or parotid duct stones can be seen. Dictated by: Tim Rodriguez M.D. on 11/08/2018 at 14:52 Approved by: Tim Rodriguez M.D. on 11/08/2018 at 14:56
== END ==
PROVIDERS: Family Provider Family Medicine; PCP Family Medicine; Visit Provider Internal Medicine Rheumatology
DX: R60.9 Edema, unspecified (principal); K11.20 Sialoadenitis, unspecified; M31.30 Wegener's granulomatosis without renal involvement
CPT/HCPCS: 70488; Q9967

== ENCOUNTER 2019-02-25 08:24 | Emergency (ER) | payer MEDICARE, OTHER, SELFPAY ==
[2019-02-25 08:55] VITALS: BP 157/105; PULSE 104; RESP 20; TEMP 36.8; O2SAT 97; BMI 34.0
--- NOTE | 2019-02-25 09:12 | ED.SKABFB ---
HPI - Skin/Abscess/Foreign Bdy General Chief complaint: Skin/Abscess/Foreign Body Stated complaint: rash Time Seen by Provider: 02/25/19 09:12 Source: patient Mode of arrival: Ambulatory History of Present Illness HPI narrative: 43-year-old woman with a history of multiple sclerosis, fibromyalgia, hyperlipidemia, diabetes presents with a rash over the left portion of her scalp posteriorly extending behind her ear and down her neck. She 1st noticed some malaise approximately 48 hours ago. Yesterday noticed some burning and itching in that distribution area over her scalp and then by a late yesterday afternoon was noticing some fascicular lesions. Today there are scattered this vesicles on an erythematous base some of which have already crusted overall very consistent with shingles Related Data Home Medications Medication Instructions Recorded Confirmed atorvastatin 1 tab PO QPM 02/07/18 08/20/18 baclofen 1 tab PO BID PRN 02/07/18 08/20/18 diazepam 1 tab PO BID PRN 02/07/18 08/20/18 eletriptan 1 tab PO PRN PRN 02/07/18 02/07/18 empagliflozin 1 tab PO DAILY 02/07/18 02/07/18 fluconazole 1 tab PO PRN PRN 02/07/18 02/07/18 gabapentin 1 tab PO TID 02/07/18 02/07/18 hydrochlorothiazide 12.5 mg PO DAILY 02/07/18 02/07/18 levothyroxine 200 mcg PO DAILY 02/07/18 08/20/18 meclizine 1 tab PO DAILY 02/07/18 02/07/18 metoclopramide HCl 1 tab PO DAILY 02/07/18 02/07/18 milnacipran 1 tab PO BID 02/07/18 08/20/18 topiramate 100 mg PO DAILY 02/07/18 08/20/18 triamcinolone acetonide See Rx Instructions .ROUTE .COMPLEX 02/07/18 02/07/18 zolpidem 5 mg PO BEDTIME PRN 02/07/18 08/20/18 furosemide 10 mg PO 08/20/18 hydrocodone-acetaminophen 1 - 2 tab PO Q6H PRN 08/20/18 08/20/18 insulin aspart U-100 [Novolog 08/20/18 Flexpen U-100 Insulin] insulin glargine [Lantus Solostar 08/20/18 U-100 Insulin] milnacipran [Savella] 08/20/18 promethazine 12.5 mg PO Q6H PRN 08/20/18 08/20/18 Previous Rx's Medication Instructions Recorded ibuprofen 800 mg PO Q8H PRN #30 tab 01/27/18 levofloxacin 500 mg PO DAILY #7 tab 02/11/18 hydrocodone-ibuprofen 1 tab PO Q4-6H PRN #5 tab 08/20/18 tamsulosin [Flomax] 0.4 mg PO DAILY #4 cap 08/20/18 acyclovir 800 mg PO 5XD #35 tab 02/25/19 oxycodone-acetaminophen 1 tab PO Q6H PRN #10 tab 02/25/19 Allergies Allergy/AdvReac Type Severity Reaction Status Date / Time codeine Allergy Severe Rash Verified 08/20/18 17:18 lovastatin [From Advicor] Allergy Severe Anaphylaxis Verified 08/20/18 17:16 niacin [From Advicor] Allergy Severe Anaphylaxis Verified 08/20/18 17:16 pseudoephedrine Allergy Severe Anaphylaxis Verified 08/20/18 17:18 red (food color) Allergy Severe Anaphylaxis Verified 08/20/18 17:18 Penicillins Allergy Intermediate Rash Verified 08/20/18 17:18 ampicillin Allergy Rash Verified 08/20/18 13:41 erythromycin base Allergy Verified 08/20/18 13:41 glatiramer (copolymer 1) Allergy Verified 08/20/18 13:41 interferon beta-1a Allergy itching Verified 08/20/18 13:41 and rash lisinopril Allergy Kidneys Verified 08/20/18 13:41 shut down metformin Allergy Gastrointestinal Verified 08/20/18 13:41 Upset Sulfa (Sulfonamide Allergy Verified 08/20/18 13:41 Antibiotics) artificial sweetners Allergy Uncoded 08/20/18 13:41 barium Allergy Uncoded 08/20/18 13:41 Review of Systems Review of Systems Narrative: Malaise over the past 48 hours, increasing unsteadiness associated with her multiple sclerosis. No fevers, cough, chills, abdominal pain, chest pain, dyspnea ROS Unobtainable: All systems reviewed & are unremarkable except as noted in HPI and below Patient History Social History marital status: household members: spouse and children Smoking Status: Never smoker Smoking Status: Never smoker alcohol intake frequency: holidays/special occasions only Substance Use Type: does not use Exam Narrative Exam Narrative: General: Healthy appearing, in no acute distress. Able to give a complete and coherent history. Well-nourished well-developed HEENT: Moist mucous membranes, normal sclera with reactive pupils, Neck: No JVD, supple. Fascicular lesions on an erythematous base left posterior portion of the neck extending up in the scalp in AC to distribution Respiratory: Lungs are clear to auscultation, no wheezing no rales no rhonchi. Full and symmetrical air movement Cardiac: Regular rate and rhythm no murmurs no bruits Abdomen: Soft nontender good bowel tones, no flank pain Skin: Warm and dry, no rashes Neurologic: Baseline musculoskeletal weakness due to her multiple sclerosis Extremities: No trauma, well perfused Psych: Cooperative, appropriate insight and affect Initial Vital Signs Initial Vital Signs: Vital Signs Temperature 98.3 F 02/25/19 08:55 Pulse Rate 104 H 02/25/19 08:55 Respiratory Rate 20 02/25/19 08:55 Blood Pressure 157/105 H 02/25/19 08:55 Pulse Oximetry 97 02/25/19 08:55 Course Vital Signs Vital signs: Vital Signs - 8 hr 02/25/19 08:55 Temperature 98.3 F Pulse Rate 104 H Respiratory Rate 20 Blood Pressure 157/105 H Pulse Oximetry 97 Discharge Plan Departure Patient Disposition: Home Clinical Impression: Shingles Qualifiers: Herpes zoster complications: without complications Qualified Code(s): B02.9 - Zoster without complications Instructions: DI for Shingles Activity Restrictions/Additional Instructions: Thank you for coming in today Your friend was correct and you do have shingles. It is in AC to distribution which means is going to involve the side of your neck and your scalp on the left side. You may notice that you have a viral-like syndrome for 7-10 days and you may notice that your multiple sclerosis is a bit more symptomatic in that same time frame. Please start acyclovir, 800 mg 5 times a day for 7 days. This is an antiviral medication to reduce the severity of the outbreak and also reduce the possibility you wiill have nerve pain in this distribution as a long-term complication. This prescription has been electronically sent to [facility] in [place]. You've been given a written prescription for Percocet to use for pain related to the shingles. You're not infectious once all of the lesions have crusted over. Until then you can spread active chickenpox Please pay close attention to the skin sores. It is okay to apply bacitracin if they seem like they're becoming more tender or appear to be coming infected. If you feel that your developing a superficial infection of any of the sores you do need to see her primary care doctor immediately. If you feel that you overall are getting worse, developed a significant fever, increasing confusion or weakness please return to the ER in where happy to re-evaluate I hope you feel better Prescriptions: New acyclovir 800 mg tablet 800 mg PO 5XD Qty: 35 RF: 0 oxycodone-acetaminophen 5-300 mg tablet 1 tab PO Q6H PRN (Reason: pain) Qty: 10 RF: 0 No Action ibuprofen 800 mg tablet 800 mg PO Q8H PRN (Reason: pain) Qty: 30 RF: 0 atorvastatin 10 mg tablet 1 tab PO QPM RF: 0 baclofen 10 mg tablet 1 tab PO BID PRN (Reason: Spasms) RF: 0 diazepam 10 mg tablet 1 tab PO BID PRN (Reason: Spasms) RF: 0 fluconazole 100 mg tablet 1 tab PO PRN PRN (Reason: migraine) RF: 0 meclizine 12.5 mg tablet 1 tab PO DAILY RF: 0 gabapentin 300 mg capsule 1 tab PO TID RF: 0 levothyroxine 200 mcg tablet 200 mcg PO DAILY RF: 0 topiramate 100 mg tablet 100 mg PO DAILY RF: 0 metoclopramide HCl 10 mg tablet 1 tab PO DAILY RF: 0 eletriptan 40 mg tablet 1 tab PO PRN PRN (Reason: Migraine Headache) RF: 0 milnacipran 100 mg tablet 1 tab PO BID RF: 0 empagliflozin 10 mg tablet 1 tab PO DAILY RF: 0 hydrochlorothiazide 12.5 mg PO DAILY RF: 0 triamcinolone acetonide 0.1 % cream See Rx Instructions .ROUTE .COMPLEX RF: 0 zolpidem 5 mg tablet 5 mg PO BEDTIME PRN (Reason: Insomnia) RF: 0 levofloxacin 500 mg Tablet 500 mg PO DAILY Qty: 7 RF: 0 hydrocodone-acetaminophen 5-325 mg tablet 1 - 2 tab PO Q6H PRN (Reason: pain) RF: 0 promethazine 12.5 mg tablet 12.5 mg PO Q6H PRN (Reason: Nausea And Vomiting) RF: 0 furosemide 20 mg tablet 10 mg PO RF: 0 Novolog Flexpen U-100 Insulin 100 unit/mL (3 mL) insulin pen RF: 0 Lantus Solostar U-100 Insulin 100 unit/mL (3 mL) insulin pen RF: 0 Savella 100 mg tablet RF: 0 tamsulosin [Flomax] 0.4 mg capsule 0.4 mg PO DAILY Qty: 4 RF: 0 hydrocodone-ibuprofen 5-200 mg tablet 1 tab PO Q4-6H PRN (Reason: acute kidney stone pain) Qty: 5 RF: 0 Referrals: Cedric Noel DO [Primary Care Provider] -
== END 2019-02-25 10:01 | disposition home or self-care (01) ==
PROVIDERS: Emergency Provider Emergency Medicine; Family Provider Family Medicine; PCP Family Medicine
DX: B02.9 Zoster without complications (principal); E11.9 Type 2 diabetes mellitus without complications
CPT/HCPCS: 99283

== ENCOUNTER 2019-08-03 15:07 | Emergency (ER) | payer MEDICARE, OTHER, SELFPAY ==
[2019-08-03] VITALS (7 sets, daily range): BP systolic 108–149; BP diastolic 22–94; PULSE 100–108; RESP 12–22; O2SAT 96–98
--- NOTE | 2019-08-03 16:09 | DI.RAD.S_ITS ---
PROCEDURE: XR CHEST 1V INDICATIONS: dyspnea, shortness of breath cough TECHNIQUE: One view of the chest was acquired. COMPARISON: None. FINDINGS: Surgical changes and devices: None. Lungs and pleura: An incomplete inspiratory result is noted, causing a crowded appearance to the lung markings. No focal infiltrates are seen. No pneumothorax or significant pleural effusions are seen. Mediastinum: Mediastinal contours appear normal. Heart size is mildly enlarged. Bones and chest wall: No suspicious bony lesions. Overlying soft tissues appear unremarkable. IMPRESSION: Mild cardiomegaly. Low lung volumes. Dictated by: Tim Rodriguez M.D. on 08/03/2019 at 16:31 Approved by: Tim Rodriguez M.D. on 08/03/2019 at 16:32
--- NOTE | 2019-08-03 16:10 | ED.PEDSOB ---
HPI - Pediatric SOB/Dyspnea General Chief Complaint: Shortness of Breath/Dyspnea Stated Complaint: Had Pneumonia, Getting Worse, SOB Time Seen by Provider: 08/03/19 15:24 Mode of arrival: Wheelchair History of Present Illness HPI Narrative: CC: persistent cough HPI: The patient is a 44-year-old female who presents with multiple complaints. She states that she was diagnosed to have pneumonia on July 13. She had a chest x-ray and told that she was fine but then 7 days later radiology called and told her that she still had a persistent pneumonia. The patient has been weak tired short of breath and coughing. She just completed a 10 day course of antibiotics. She has been complaining of lower chest pain on coughing. She complains of history of hypertension diabetes mellitus as well as multiple sclerosis but denies a history of congestive heart failure COPD or asthma. She states that she was checked for [place] it on July 21 and was negative. She does not smoke cigarettes but rarely drinks alcohol. She does not use any drugs. She came in because she continues to be coughing has been breathing rapidly and continues to be short of breath. Related Data Home Medications Medication Instructions Recorded Confirmed atorvastatin 1 tab PO QPM 02/07/18 08/20/18 baclofen 1 tab PO BID PRN 02/07/18 08/20/18 diazepam 1 tab PO BID PRN 02/07/18 08/20/18 eletriptan 1 tab PO PRN PRN 02/07/18 02/07/18 empagliflozin 1 tab PO DAILY 02/07/18 02/07/18 fluconazole 1 tab PO PRN PRN 02/07/18 02/07/18 gabapentin 1 tab PO TID 02/07/18 02/07/18 hydrochlorothiazide 12.5 mg PO DAILY 02/07/18 02/07/18 levothyroxine 200 mcg PO DAILY 02/07/18 08/20/18 meclizine 1 tab PO DAILY 02/07/18 02/07/18 metoclopramide HCl 1 tab PO DAILY 02/07/18 02/07/18 milnacipran 1 tab PO BID 02/07/18 08/20/18 topiramate 100 mg PO DAILY 02/07/18 08/20/18 triamcinolone acetonide See Rx Instructions .ROUTE .COMPLEX 02/07/18 02/07/18 zolpidem 5 mg PO BEDTIME PRN 02/07/18 08/20/18 furosemide 10 mg PO 08/20/18 hydrocodone-acetaminophen 1 - 2 tab PO Q6H PRN 08/20/18 08/20/18 insulin aspart U-100 [Novolog 08/20/18 Flexpen U-100 Insulin] insulin glargine [Lantus Solostar 08/20/18 U-100 Insulin] milnacipran [Savella] 08/20/18 promethazine 12.5 mg PO Q6H PRN 08/20/18 08/20/18 Previous Rx's Medication Instructions Recorded ibuprofen 800 mg PO Q8H PRN #30 tab 01/27/18 levofloxacin 500 mg PO DAILY #7 tab 02/11/18 hydrocodone-ibuprofen 1 tab PO Q4-6H PRN #5 tab 08/20/18 tamsulosin [Flomax] 0.4 mg PO DAILY #4 cap 08/20/18 acyclovir 800 mg PO 5XD #35 tab 02/25/19 oxycodone 5 mg PO Q8H PRN #20 tab 02/25/19 oxycodone-acetaminophen 1 tab PO Q6H PRN #10 tab 02/25/19 albuterol sulfate 2 puff INHALATION Q4-6H PRN #8.5 08/03/19 gram prednisone 60 mg PO DAILY #15 tab 08/03/19 Allergies Allergy/AdvReac Type Severity Reaction Status Date / Time codeine Allergy Severe Rash Verified 08/03/19 18:34 lovastatin [From Advicor] Allergy Severe Anaphylaxis Verified 08/03/19 18:34 niacin [From Advicor] Allergy Severe Anaphylaxis Verified 08/03/19 18:34 pseudoephedrine Allergy Severe Anaphylaxis Verified 08/03/19 18:34 red (food color) Allergy Severe Anaphylaxis Verified 08/03/19 18:34 Penicillins Allergy Intermediate Rash Verified 08/03/19 18:34 ampicillin Allergy Rash Verified 08/03/19 18:34 erythromycin base Allergy Verified 08/03/19 18:34 glatiramer (copolymer 1) Allergy Verified 08/03/19 18:34 interferon beta-1a Allergy itching Verified 08/03/19 18:34 and rash lisinopril Allergy Kidneys Verified 08/03/19 18:34 shut down metformin Allergy Gastrointestinal Verified 08/03/19 18:34 Upset Sulfa (Sulfonamide Allergy Verified 08/03/19 18:34 Antibiotics) artificial sweetners Allergy Uncoded 08/20/18 13:41 barium Allergy Uncoded 08/20/18 13:41 Pediatric Review of Systems Review of Systems: REVIEW OF SYSTEMS: CONSTITUTIONAL: She complains that she has had intermittent fever with chills and sweats. NEUROLOGICAL: She has a history of headaches with numbness and tingling paresthesias in her hands and her feet. She admits to history of multiple sclerosis. She denies any other paralysis or paresis. She has had no loss of vision scotomata or double vision. EENT: She complains of a sore throat with sinus congestion and nasal drainage. She thought that she had strep throat arm when she came in here. CARDIO-PULMONARY: She has lower chest pain under her right breast and lower ribs. She denies any fall or injury. She has been intermittently wheezing. She has been short of breath with a cough productive of a greenish yellow sputum without hemoptysis. She complains of having palpitations with dizziness and lightheadedness. HEMOTOLOGICAL: She denies any bleeding abnormalities but states that she has had a superficial phlebitis involving her right arm. GASTROINTESTINAL: She complains of diffuse abdominal cramping with nausea vomiting diarrhea. She denies any melena hematochezia coffee-ground emesis or hematemesis. GENITAL URINARY: She has had no urinary symptoms. MUSCULOSKELETAL/ RHEUMATOLOGICAL: She complains of chronic back pain. Patient History Medical History Chronically low serum potassium (Acute) Diabetes (Acute) Fibromyalgia (Acute) Low sodium levels (Acute) Low vitamin D level (Acute) Multiple sclerosis (Acute) Surgical History No pertinent past surgical history (Acute) Social History marital status: household members: spouse and children Smoking Status: Never smoker Smoking Status: Never smoker alcohol intake frequency: holidays/special occasions only Substance Use Type: does not use Pediatric Exam Narrative Physical exam: PHYSICAL EXAM: CONSTITUTIONAL: Awake, Alert, Oriented, Coherent, Cooperative appears anxious and tachypneic. HEAD: AT/NC EENT: PERRL, FROM of eyes, no discharge, no nystagmus MOUTH:Oral mucosa is moist and pink, posterior pharynx is without erythema or exudate. NECK: Supple, no obvious JVD, Trachea is midline without stridor, no palpable LN. SPINE: Palpationof the cervical, l spine reveals no gross deformity or tenderness. No CVA tenderness. The patient has diffuse tenderness over the thoracic spine. THORAX: Diffuse chest wall tenderness without any crepitus or subcutaneous air. LUNGS: Clear, symmetrical breath sounds without respiratory distress. No wheezing or rhonchi. HEART: Normal heart tones, regular rhythm and rate without murmur. ABDOMEN: Soft, non-tender, without guarding, rebound, rigidity or palpable mass. LYMPHATIC: no palpable spleen. EXTREMITIES: No edema, deformity, tenderness or cyanosis. SKIN: No rash, bruising, petechiae or purpura. NEURO: Awake, alert, oriented, conversive, cranial nerves II-XII are symmetrical , moves all 4 extremities. Initial Vital Signs Initial Vital Signs: Vital Signs Pulse Rate 108 H 08/03/19 16:00 Respiratory Rate 22 08/03/19 16:00 Blood Pressure 108/22 L 08/03/19 16:00 Pulse Oximetry 97 08/03/19 16:00 Course Course Course Narrative: 164: Patient's blood gases reveal that her pH is 7.385 her pCO2 is 38.5 PO2 is 115 HC03 is 23.0 total CO2 is 24 oxygen saturation is 98%. 1821: The patient's chest x-ray reveals: Lungs and pleura: An incomplete inspiratory results are noted causing a crowded appearance to the lung markings. There are no focal infiltrates seen no pneumothorax or significant pleural effusions are seen. The mediastinal contours appear normal heart size is mildly enlarged. Bones and chest wall revealed no suspicious lesions. The overlying soft tissue appears unremarkable. The patient has mild cardiomegaly with low lung volumes no evidence of pneumonia. 1858: Her rapid strep screen was negative. Her chest x-rays negative for pneumonia. 1914: The patient's laboratory chemistries are all basically within normal limits. I went in to discharge the patient and she was complaining of still being short of breath with an oxygen saturation a 99%. She was hyperventilating. Her monitor revealed that she continued to have a sinus tachycardia of 105 to 107. The patient's D-dimer was negative. A repeat EKG will be obtained as well as troponin in the patient will be given a bolus of IV fluid to see if that will slower heart rate down. Her lactate is normal at 1.8 the patient will receive a total of 2 L of fluid to see if that will slow her heart rate down. A repeat troponin is being ordered on the patient as well as an EKG to make sure that her subjective complaint of shortness of breath is not an anginal equivalent. 1940: The patient's repeat EKG revealed a ventricular rate of 106 consistent with sinus tachycardia. The intervals were otherwise normal. Her QTC is slightly prolonged at 483 milliseconds axis is normal. The patient has generalize low voltage throughout the entire EKG. She has inverted T-waves in lead V1 with flat T-waves in lead III. The rest of her EKG did not reveal any acute diagnostic ST or T-wave changes. There is no evidence of ischemia or infarct. 1953: The patient's repeat troponin remains pending at this time. 2028: Report was given to Dr. Maya to check the patient's 2nd troponin and discharge the patient home. Orders Ordered: Discontinued Medications Albuterol (Ventolin Hfa (Vent/Covid R/O)) 2 puff INH NOW ONE Stop: 08/03/19 16:50 Last Admin: 08/03/19 16:57 Dose: 2 puff Documented by: DE Albuterol/Ipratropium (Duoneb) 3 ml INH NOW ONE Stop: 08/03/19 16:08 Last Admin: 08/03/19 16:58 Dose: Not Given Documented by: ED Sodium Chloride (Normal Saline 0.9%) 1,000 mls @ 1,000 mls/hr IV BOLUS ONE Stop: 08/03/19 17:06 Last Infusion: 08/03/19 19:30 Dose: 0 mls/hr Documented by: Admin: 08/03/19 16:36 Dose: 1,000 mls/hr Documented by: GURWINDER Sodium Chloride (Normal Saline 0.9%) 1,000 mls @ 2,000 mls/hr IV BOLUS ONE Stop: 08/03/19 19:41 Last Admin: 08/03/19 19:29 Dose: 2,000 mls/hr Documented by: JNUNEZ Lorazepam (Ativan) 0.5 mg IV NOW ONE Stop: 08/03/19 19:15 Last Admin: 08/03/19 19:30 Dose: 0.5 mg Documented by: GURWINDER Methylprednisolone (Solu-Medrol 125 Mg Vial) 125 mg IV NOW ONE Stop: 08/03/19 16:08 Last Admin: 08/03/19 16:36 Dose: 125 mg Documented by: GURWINDER Vital Signs Vital signs: Vital Signs - 8 hr 08/03/19 16:00 08/03/19 17:06 08/03/19 18:16 Pulse Rate 108 H 100 H 104 H Respiratory Rate 22 18 13 Blood Pressure [Right Arm] 108/22 L 138/80 Pulse Oximetry 97 98 08/03/19 18:30 08/03/19 19:00 08/03/19 19:30 Pulse Rate 105 H 105 H 106 H Respiratory Rate 13 12 21 Blood Pressure [Right Arm] 146/94 H 139/78 149/92 H Pulse Oximetry 96 96 96 Medical Decision Making Medical Records Medical records reviewed: Yes I reviewed the patient's medical records. Lab Data Lab results reviewed: Yes I reviewed the patient's lab results. Result diagrams: 08/03/19 16:25 08/03/19 16:25 Labs: Lab Results 08/03/19 08/03/19 08/03/19 Range/Units 16:25 16:25 16:25 WBC 9.3 (4.5-11.0) X10^3/uL RBC 4.70 (4.0-5.2) X10^6/uL Hgb 13.6 (12.0-16.0) g/dL Hct 40.2 (36-46) % MCV 85.4 (80-100) fL MCH 28.9 (26-34) PG MCHC 33.8 (30-36) % RDW 14.4 (11.6-14.8) % Plt Count 308 (150-400) X10^3/uL Neut % (Auto) 54.1 (50-75) % Lymph % (Auto) 36.3 (25-40) % Sunflower % (Auto) 6.6 (3-14) % Eos % (Auto) 2.4 (2-4) % Baso % (Auto) 0.6 (0-2) % Neut # (Auto) 5000 (6068-0134) /uL Lymph # (Auto) 3400 (4355-0133) /uL Sunflower # (Auto) 600 (0-900) /uL Eos # (Auto) 200 (0-450) /uL Baso # (Auto) 100 (0-100) /uL D-Dimer < 200 (<230) ng/mL ABG pH (7.35-7.45) ABG pCO2 (35-45) mmHg ABG pO2 (80-100) mmHg ABG HCO3 (22-26) mmol/L ABG Total CO2 (21-31) mmol/L ABG O2 Saturation (95-100) % ABG Base Excess (-2-2) mmol/L FiO2 Sodium (137-145) mmol/L Potassium (3.4-5.1) mmol/L Chloride (98-107) mmol/L Carbon Dioxide (22-32) mmol/L BUN (7-17) mg/dL Creatinine (0.52-1.04) mg/dL Estimated GFR (>60) mL/min BUN/Creatinine Ratio (6-22) Glucose (70-100) mg/dL Lactate (0.7-2.1) mmol/L Calcium (8.4-10.2) mg/dL Magnesium 1.9 (1.6-2.3) mg/dL Total Bilirubin (0.2-1.3) mg/dL AST (14-36) IU/L ALT (<35) IU/L Alkaline Phosphatase (38-126) U/L Total Creatine Kinase 27 L (30-135) U/L CK-MB (CK-2) TNP CK-MB (CK-2) Rel Index TNP Troponin I < 0.012 (0.01-0.034) ng/mL Total Protein (6.3-8.2) g/dL Albumin (3.5-5.0) g/dL Globulin (1.7-4.1) g/dL Albumin/Globulin Ratio (1.0-2.8) Procalcitonin (<0.5) ng/mL 08/03/19 08/03/19 08/03/19 Range/Units 16:25 16:25 16:25 WBC (4.5-11.0) X10^3/uL RBC (4.0-5.2) X10^6/uL Hgb (12.0-16.0) g/dL Hct (36-46) % MCV (80-100) fL MCH (26-34) PG MCHC (30-36) % RDW (11.6-14.8) % Plt Count (150-400) X10^3/uL Neut % (Auto) (50-75) % Lymph % (Auto) (25-40) % Sunflower % (Auto) (3-14) % Eos % (Auto) (2-4) % Baso % (Auto) (0-2) % Neut # (Auto) (0134-6785) /uL Lymph # (Auto) (7695-9649) /uL Sunflower # (Auto) (0-900) /uL Eos # (Auto) (0-450) /uL Baso # (Auto) (0-100) /uL D-Dimer (<230) ng/mL ABG pH (7.35-7.45) ABG pCO2 (35-45) mmHg ABG pO2 (80-100) mmHg ABG HCO3 (22-26) mmol/L ABG Total CO2 (21-31) mmol/L ABG O2 Saturation (95-100) % ABG Base Excess (-2-2) mmol/L FiO2 Sodium 144 (137-145) mmol/L Potassium 3.8 (3.4-5.1) mmol/L Chloride 109 H (98-107) mmol/L Carbon Dioxide 23 (22-32) mmol/L BUN 11 (7-17) mg/dL Creatinine 0.73 (0.52-1.04) mg/dL Estimated GFR > 60.0 (>60) mL/min BUN/Creatinine Ratio 15.1 (6-22) Glucose 179 H (70-100) mg/dL Lactate 1.8 (0.7-2.1) mmol/L Calcium 9.2 (8.4-10.2) mg/dL Magnesium (1.6-2.3) mg/dL Total Bilirubin 0.3 (0.2-1.3) mg/dL AST 23 (14-36) IU/L ALT 21 (<35) IU/L Alkaline Phosphatase 59 (38-126) U/L Total Creatine Kinase (30-135) U/L CK-MB (CK-2) CK-MB (CK-2) Rel Index Troponin I (0.01-0.034) ng/mL Total Protein 6.5 (6.3-8.2) g/dL Albumin 3.9 (3.5-5.0) g/dL Globulin 2.6 (1.7-4.1) g/dL Albumin/Globulin Ratio 1.5 (1.0-2.8) Procalcitonin < 0.05 (<0.5) ng/mL 08/03/19 08/03/19 Range/Units 16:38 19:44 WBC (4.5-11.0) X10^3/uL RBC (4.0-5.2) X10^6/uL Hgb (12.0-16.0) g/dL Hct (36-46) % MCV (80-100) fL MCH (26-34) PG MCHC (30-36) % RDW (11.6-14.8) % Plt Count (150-400) X10^3/uL Neut % (Auto) (50-75) % Lymph % (Auto) (25-40) % Sunflower % (Auto) (3-14) % Eos % (Auto) (2-4) % Baso % (Auto) (0-2) % Neut # (Auto) (2058-0051) /uL Lymph # (Auto) (4177-1244) /uL Sunflower # (Auto) (0-900) /uL Eos # (Auto) (0-450) /uL Baso # (Auto) (0-100) /uL D-Dimer (<230) ng/mL ABG pH 7.39 (7.35-7.45) ABG pCO2 38.5 (35-45) mmHg ABG pO2 115 H (80-100) mmHg ABG HCO3 23 (22-26) mmol/L ABG Total CO2 24 (21-31) mmol/L ABG O2 Saturation 98 (95-100) % ABG Base Excess -2.0 (-2-2) mmol/L FiO2 0.21 Sodium (137-145) mmol/L Potassium (3.4-5.1) mmol/L Chloride (98-107) mmol/L Carbon Dioxide (22-32) mmol/L BUN (7-17) mg/dL Creatinine (0.52-1.04) mg/dL Estimated GFR (>60) mL/min BUN/Creatinine Ratio (6-22) Glucose (70-100) mg/dL Lactate (0.7-2.1) mmol/L Calcium (8.4-10.2) mg/dL Magnesium (1.6-2.3) mg/dL Total Bilirubin (0.2-1.3) mg/dL AST (14-36) IU/L ALT (<35) IU/L Alkaline Phosphatase (38-126) U/L Total Creatine Kinase (30-135) U/L CK-MB (CK-2) CK-MB (CK-2) Rel Index Troponin I < 0.012 (0.01-0.034) ng/mL Total Protein (6.3-8.2) g/dL Albumin (3.5-5.0) g/dL Globulin (1.7-4.1) g/dL Albumin/Globulin Ratio (1.0-2.8) Procalcitonin (<0.5) ng/mL Point of Care Testing Rapid Strep A Negative Glucose POC 304 Point of care testing: Point of Care Testing Rapid Strep A Negative Glucose POC 304 ECG Data Attestation: I personally reviewed and interpreted this ECG as follows: Interpretation: The patient's EKG reveals a sinus tachycardia with a ventricular rate of 105. Her intervals appear to be normal. QRS is 82 milliseconds duration DC interval is 130 milliseconds QTC is slightly prolonged at 470 milliseconds. Mims is normal. The patient has no acute diagnostic ST segment changes or T-wave abnormalities to suggest ischemia or infarct. The patient has a generalized low voltage throughout the entire EKG. Discharge Plan Departure Patient Disposition: Home Clinical Impression: Sorethroat, Cough Type 2 diabetes mellitus Qualifiers: Diabetes mellitus terminal clerk insulin use: unspecified mcfp insulin use status Diabetes mellitus complication status: without complication Qualified Code(s): E11.9 - Type 2 diabetes mellitus without complications Dyspnea Qualifiers: Dyspnea type: unspecified Qualified Code(s): R06.00 - Dyspnea, unspecified Discharge Date/Time: 08/03/19 21:35 Instructions: DI for Cough -- Adult, DI for Acute Bronchitis, DI for Viral Upper Respiratory Infection -- Adult Activity Restrictions/Additional Instructions: 1. You need to follow-up with your primary care physician for possible further evaluation of your shortness of breath and cardiac status. You may need to be referred to a radio station operator for a an echocardiogram. 2. If you develop a fever, worsening chest pain dizziness passing out uncontrolled palpitations and racing of your heart you need to return to the emergency department. 3. Take the prednisone as prescribed for the next 5 days. 4. Or chest x-ray as read by the radiologist does not show any signs of pneumonia or infection at this time. There is no evidence of congestive heart failure pulmonary edema or a blood clot in your lungs. 5. For shortness of breath, cough, shortness of breath and difficulty in breathing use the albuterol inhaler as prescribed. 6. At this time there is no need for you to be on any antibiotics. Prescriptions: New prednisone 20 mg tablet 60 mg PO DAILY Qty: 15 RF: 0 albuterol sulfate 90 mcg/actuation HFA aerosol inhaler 2 puff INHALATION Q4-6H PRN (Reason: shortness of breath or wheezing) Qty: 8.5 RF: 0 No Action ibuprofen 800 mg tablet 800 mg PO Q8H PRN (Reason: pain) Qty: 30 RF: 0 atorvastatin 10 mg tablet 1 tab PO QPM RF: 0 baclofen 10 mg tablet 1 tab PO BID PRN (Reason: Spasms) RF: 0 diazepam 10 mg tablet 1 tab PO BID PRN (Reason: Spasms) RF: 0 fluconazole 100 mg tablet 1 tab PO PRN PRN (Reason: migraine) RF: 0 meclizine 12.5 mg tablet 1 tab PO DAILY RF: 0 gabapentin 300 mg capsule 1 tab PO TID RF: 0 levothyroxine 200 mcg tablet 200 mcg PO DAILY RF: 0 topiramate 100 mg tablet 100 mg PO DAILY RF: 0 metoclopramide HCl 10 mg tablet 1 tab PO DAILY RF: 0 eletriptan 40 mg tablet 1 tab PO PRN PRN (Reason: Migraine Headache) RF: 0 milnacipran 100 mg tablet 1 tab PO BID RF: 0 empagliflozin 10 mg tablet 1 tab PO DAILY RF: 0 hydrochlorothiazide 12.5 mg PO DAILY RF: 0 triamcinolone acetonide 0.1 % cream See Rx Instructions .ROUTE .COMPLEX RF: 0 zolpidem 5 mg tablet 5 mg PO BEDTIME PRN (Reason: Insomnia) RF: 0 levofloxacin 500 mg Tablet 500 mg PO DAILY Qty: 7 RF: 0 hydrocodone-acetaminophen 5-325 mg tablet 1 - 2 tab PO Q6H PRN (Reason: pain) RF: 0 promethazine 12.5 mg tablet 12.5 mg PO Q6H PRN (Reason: Nausea And Vomiting) RF: 0 furosemide 20 mg tablet 10 mg PO RF: 0 Novolog Flexpen U-100 Insulin 100 unit/mL (3 mL) insulin pen RF: 0 Lantus Solostar U-100 Insulin 100 unit/mL (3 mL) insulin pen RF: 0 Savella 100 mg tablet RF: 0 tamsulosin [Flomax] 0.4 mg capsule 0.4 mg PO DAILY Qty: 4 RF: 0 hydrocodone-ibuprofen 5-200 mg tablet 1 tab PO Q4-6H PRN (Reason: acute kidney stone pain) Qty: 5 RF: 0 acyclovir 800 mg tablet 800 mg PO 5XD Qty: 35 RF: 0 oxycodone-acetaminophen 5-300 mg tablet 1 tab PO Q6H PRN (Reason: pain) Qty: 10 RF: 0 oxycodone 5 mg tablet 5 mg PO Q8H PRN (Reason: pain) Qty: 20 RF: 0 Referrals: Cedric Noel DO [Primary Care Provider] -
[2019-08-03] MEDS: methylPREDNISolone 125 MG/2 ML VIAL IV (16:36)
[2019-08-03] MEDS: SODIUM CHLORIDE 0.9% 1,000 ML 1000 ML IV (16:36)
[2019-08-03 16:57] LABS: Add Manual Diff / Slide Review NO; Basophils Absolute Auto 100 /uL (0-100); Basophils Percent Auto 0.6 % (0-2); Eosinophils Absolute Auto 200 /uL (0-450); Eosinophils Percent Auto 2.4 % (2-4); Hematocrit 40.2 % (36-46); Hemoglobin 13.6 g/dL (12.0-16.0); Lymphocytes Absolute Auto 3400 /uL (1100-4500); Lymphocytes Percent Auto 36.3 % (25-40); Mean Corpuscular HGB Conc 33.8 % (30-36); Mean Corpuscular Hemoglobin 28.9 PG (26-34); Mean Corpuscular Volume 85.4 fL (80-100); Monocytes Absolute Auto 600 /uL (0-900); Monocytes Percent Auto 6.6 % (3-14); Neutrophils Absolute Auto 5000 /uL (1500-7000); Neutrophils Percent Auto 54.1 % (50-75); Platelet Count 308 X10^3/uL (150-400); Red Cell Distribution Width 14.4 % (11.6-14.8); White Blood Cell Count 9.3 X10^3/uL (4.5-11.0)
[2019-08-03] MEDS: ALBUTEROL INH (16:57)
[2019-08-03 17:15] LABS: Creatine Kinase 27 U/L (30-135); Lactate (Lactic Acid) 1.8 mmol/L (0.7-2.1); Magnesium 1.9 mg/dL (1.6-2.3)
[2019-08-03 17:16] LABS: Alanine Aminotransferase 21 IU/L (<35); Albumin 3.9 g/dL (3.5-5.0); Albumin Globulin Ratio 1.5 (1.0-2.8); Alkaline Phosphatase 59 U/L (38-126); Aspartate Aminotransferase 23 IU/L (14-36); BUN Creatinine Ratio 15.1 (6-22); Bilirubin Total 0.3 mg/dL (0.2-1.3); Blood Urea Nitrogen 11 mg/dL (7-17); Calcium 9.2 mg/dL (8.4-10.2); Carbon Dioxide 23 mmol/L (22-32); Chloride 109 mmol/L (98-107); Estimated Glomerular Filt Rate > 60.0 mL/min (>60); Globulin 2.6 g/dL (1.7-4.1); Glucose 179 mg/dL (70-100); HEMOLYSIS < 15 (0-50); Potassium 3.8 mmol/L (3.4-5.1); Sodium 144 mmol/L (137-145); Total Protein 6.5 g/dL (6.3-8.2)
[2019-08-03 17:20] LABS: Fractionated Inspired Oxygen 0.21; HCO3 ABG 23 mmol/L (22-26); Oxygen Saturation ABG 98 % (95-100); PCO2 ABG 38.5 mmHg (35-45); PO2 ABG 115 mmHg (80-100); TCO2 ABG 24 mmol/L (21-31); pH ABG 7.39 (7.35-7.45)
[2019-08-03 17:22] LABS: D Dimer < 200 ng/mL (<230); Procalcitonin < 0.05 ng/mL (<0.5)
[2019-08-03 17:26] LABS: Troponin I < 0.012 ng/mL (0.01-0.034)
[2019-08-03] MEDS: SODIUM CHLORIDE 0.9% 1,000 ML 2000 ML IV (19:29)
[2019-08-03] MEDS: LORazepam 2 MG/ML INJ 0.5 MG IV (19:30)
[2019-08-03 20:10] LABS: Troponin I < 0.012 ng/mL (0.01-0.034)
== END 2019-08-03 21:35 | disposition home or self-care (01) ==
PROVIDERS: Emergency Provider Emergency Medicine; Family Provider Family Medicine; PCP Family Medicine
DX: R06.00 Dyspnea, unspecified (principal); R05 Cough; J02.9 Acute pharyngitis, unspecified; E11.9 Type 2 diabetes mellitus without complications; R00.0 Tachycardia, unspecified
CPT/HCPCS: 36415; 36600; 71045; 80053; 82550; 82805; 82962; 83605; 83735; 84145; 84484; 85025; 85379; 87040; 87880; 93005; 93010; 94640; 96361; 96374; 96375; 99284; 99285; J2060; J2930

== ENCOUNTER 2019-08-13 18:46 | Emergency (ER) | payer MEDICARE, OTHER, SELFPAY ==
[2019-08-13 18:50] VITALS: BP 143/80; PULSE 115; RESP 18; TEMP 36.4; O2SAT 97
--- NOTE | 2019-08-13 19:05 | ED.RECABL ---
HPI - Recheck/Abnormal Lab/Rx General Chief Complaint: Recheck/Abnormal Lab/Rx Stated Complaint: SWELLING OF FACE NECK AND THROAT STOMACH SLEEPY Time Seen by Provider: 08/13/19 19:05 Source: patient Mode of arrival: Ambulatory Limitations: no limitations History of Present Illness HPI narrative: 44-year-old woman with MS, fibromyalgia, migraines and type 1.5 diabetes presents with increasing anasarca. She has a litany of complaints including dramatic fatigue(reports sleeping up to 18+ hours a day), exertional dyspnea increased pain from both her MS and fibromyalgia, increasing abdominal pain and tenderness, discomfort from edema upper legs. She does note that she has been having frequent soft bowel movements some minor dysuria and increasing generalized abdominal pain. She denies fever or cough. She was seen on August 02 with multiple complaints including chest pain and coughing at that time. She was Covid19 negative on July 21. She states that she has gained almost 30 lb over the last weeks. Last documented weight was in February at 81.6 kilos and today she is at 97.8 kilos which is in fact 36 lb. Related Data Home Medications Medication Instructions Recorded Confirmed atorvastatin 1 tab PO QPM 02/07/18 08/13/19 baclofen 1 tab PO TID 02/07/18 08/13/19 diazepam 1 tab PO Q8H PRN 02/07/18 08/13/19 eletriptan 1 tab PO PRN PRN 02/07/18 08/13/19 fluconazole 1 tab PO PRN PRN 02/07/18 08/13/19 gabapentin 1 tab PO TID 02/07/18 08/13/19 hydrochlorothiazide 25 mg PO DAILY #0 02/07/18 08/13/19 levothyroxine 200 mcg PO DAILY 02/07/18 08/13/19 meclizine 1 tab PO PRN PRN 02/07/18 08/13/19 metoclopramide HCl 5 mg PO DAILY 02/07/18 08/13/19 topiramate 100 mg PO DAILY 02/07/18 08/13/19 triamcinolone acetonide See Rx Instructions .ROUTE .COMPLEX 02/07/18 02/07/18 zolpidem 5 mg PO BEDTIME PRN 02/07/18 08/20/18 furosemide 10 mg PO 08/20/18 hydrocodone-acetaminophen 1 - 2 tab PO Q6H PRN 08/20/18 08/20/18 insulin aspart U-100 [Novolog 30 unit SUBCUT TIDWM 08/20/18 08/13/19 Flexpen U-100 Insulin] insulin glargine [Lantus Solostar 52 unit SUBCUT BID 08/20/18 08/13/19 U-100 Insulin] milnacipran [Savella] 100 mg PO BID 08/20/18 08/13/19 promethazine 25 mg PO Q6H PRN 08/20/18 08/13/19 aspirin 325 mg PO DAILY 08/13/19 08/13/19 levocetirizine 5 mg PO DAILY 08/13/19 08/13/19 losartan 25 mg PO DAILY 08/13/19 08/13/19 pioglitazone [Actos] 15 mg PO DAILY 08/13/19 08/13/19 ibuprofen 600 mg PO Q8H PRN 08/14/19 08/14/19 trazodone 50 mg PO BEDTIME 08/14/19 08/14/19 Previous Rx's Medication Instructions Recorded hydrocodone-ibuprofen 1 tab PO Q4-6H PRN #5 tab 08/20/18 oxycodone 5 mg PO Q8H PRN #20 tab 02/25/19 albuterol sulfate 2 puff INHALATION Q4-6H PRN #8.5 08/03/19 gram Allergies Allergy/AdvReac Type Severity Reaction Status Date / Time codeine Allergy Severe Rash Verified 08/13/19 18:55 lovastatin [From Advicor] Allergy Severe Anaphylaxis Verified 08/13/19 18:55 niacin [From Advicor] Allergy Severe Anaphylaxis Verified 08/13/19 18:55 pseudoephedrine Allergy Severe Anaphylaxis Verified 08/13/19 18:55 red (food color) Allergy Severe Anaphylaxis Verified 08/13/19 18:55 Penicillins Allergy Intermediate Rash Verified 08/13/19 18:55 ampicillin Allergy Rash Verified 08/13/19 18:55 erythromycin base Allergy Verified 08/13/19 18:55 glatiramer (copolymer 1) Allergy Verified 08/13/19 18:55 interferon beta-1a Allergy itching Verified 08/13/19 18:55 and rash Iodinated Contrast Media Allergy Verified 08/13/19 23:02 lisinopril Allergy Kidneys Verified 08/13/19 18:55 shut down metformin Allergy Gastrointestinal Verified 08/13/19 18:55 Upset Sulfa (Sulfonamide Allergy Verified 08/13/19 18:55 Antibiotics) artificial sweetners Allergy Uncoded 08/20/18 13:41 barium Allergy Uncoded 08/20/18 13:41 Review of Systems Review of Systems Narrative: Pertinent positive and negative findings as per HPI remarkedly positive review. She complains of Constitutional: Excessive fatigue, weakness ENT: No sore throat, neck pain, ear pain CV: No chest pain but positive palpitations, dyspnea on exertion Respiratory: No Cough, wheeze, GI: She complains of Nausea, vomiting, diarrhea, : Mild Dysuria, no hematuria or flank pain MS: + Muscle weakness, joint swelling Skin: No Rashes or nonhealing lesions Neuro: No Syncope, but + dizziness, tingling Psych: No Depression, but increasing anxiety Endocrine: Positive Fatigue, heat or cold intoleranc Heme: Easy bruising but no excessive bleeding Allergy: Seasonal rhinorrhea with itchy eyes Patient History Medical History Chronically low serum potassium (Acute) Diabetes (Acute) Fibromyalgia (Acute) Low sodium levels (Acute) Low vitamin D level (Acute) Multiple sclerosis (Acute) Surgical History No pertinent past surgical history (Acute) Social History marital status: household members: spouse and children Smoking Status: Never smoker Smoking Status: Never smoker alcohol intake frequency: holidays/special occasions only Substance Use Type: does not use Exam Narrative Exam Narrative: General: Fatigue, in no acute distress. Able to give a complete and tangential history. Well-nourished well-developed HEENT: Dry mucous membranes, normal sclera with reactive pupils, hirsute, fullness along the angle of the jaw and the neck line Neck: supple, unable to evaluate venous distention based on body habitus Respiratory: Lungs are clear to auscultation, no wheezing no rales no rhonchi. Full and symmetrical air movement Cardiac: Regular rate and rhythm no murmurs no bruits Abdomen: Soft, obese, distended with very hypoactive bowel tones and diffuse tenderness without rebound or guarding. She has multiple bruising from insulin shots across the upper abdomen, no flank pain Skin: Warm and dry, no rashes Neurologic: Grossly neurologically intact with no obvious asymmetries or abnormalities Extremities: No trauma, well perfused, diffuse nonpitting edema hands, feet, thighs, face Psych: Cooperative, appropriate insight and affect Initial Vital Signs Initial Vital Signs: Vital Signs Temperature 97.6 F 08/13/19 18:50 Pulse Rate 115 H 08/13/19 18:50 Respiratory Rate 18 08/13/19 18:50 Blood Pressure 143/80 H 08/13/19 18:50 Pulse Oximetry 97 08/13/19 18:50 Course Orders Ordered: ED Orders 08/13/19 20:08 XR chest 1V Stat 08/13/19 20:35 Urinalysis and Microscopic Stat 08/13/19 20:55 Complete Blood Count AUTO DIFF Stat Comprehensive Metabolic Panel Stat Lipase Stat Magnesium Stat NT-proBNP (BNP-Adult 18+) Stat Thyroid Stimulating Hormone Stat Troponin I Stat 08/13/19 22:03 CT abdomen pelvis w con Stat Discontinued Medications Diazepam (Valium) 5 mg PO NOW ONE Stop: 08/13/19 21:33 Last Admin: 08/13/19 22:06 Dose: 5 mg Documented by: SARA Diphenhydramine HCl (Benadryl) 25 mg IV NOW ONE Stop: 08/13/19 22:15 Last Admin: 08/13/19 22:20 Dose: 25 mg Documented by: SARA Gabapentin (Neurontin) 300 mg PO NOW ONE Stop: 08/13/19 21:33 Last Admin: 08/13/19 22:06 Dose: 300 mg Documented by: SARA Methylprednisolone (Solu-Medrol 125 Mg Vial) 125 mg IV NOW ONE Stop: 08/13/19 22:15 Last Admin: 08/13/19 22:21 Dose: 125 mg Documented by: SARA Vital Signs Vital signs: Vital Signs - 8 hr 08/13/19 18:50 08/13/19 21:38 08/13/19 23:08 Temperature 97.6 F Pulse Rate 115 H 114 H 109 H Respiratory Rate 18 20 16 Blood Pressure 143/80 H Blood Pressure [Left Arm] 126/70 135/73 Pulse Oximetry 97 96 96 08/13/19 23:30 08/14/19 00:30 Temperature Pulse Rate 105 H 108 H Respiratory Rate 16 16 Blood Pressure Blood Pressure [Left Arm] 131/79 129/90 Pulse Oximetry 97 96 MDM - Recheck/Abnormal Lab/Rx Medical Records Attestation: I reviewed the patient's medical records. Lab Data Attestation: I reviewed the patient's lab results. Result diagrams: 08/13/19 20:55 08/13/19 20:55 Labs: Lab Results 08/13/19 08/13/19 08/13/19 Range/Units 20:35 20:55 20:55 WBC 14.4 H (4.5-11.0) X10^3/uL RBC 4.24 (4.0-5.2) X10^6/uL Hgb 12.1 (12.0-16.0) g/dL Hct 36.9 (36-46) % MCV 87.1 (80-100) fL MCH 28.6 (26-34) PG MCHC 32.9 (30-36) % RDW 15.1 H (11.6-14.8) % Plt Count 339 (150-400) X10^3/uL Neut % (Auto) 54.5 (50-75) % Lymph % (Auto) 35.4 (25-40) % [place] % (Auto) 7.3 (3-14) % Eos % (Auto) 1.9 L (2-4) % Baso % (Auto) 0.9 (0-2) % Neut # (Auto) 7900 H (2905-6196) /uL Lymph # (Auto) 5100 H (8906-1319) /uL [place] # (Auto) 1100 H (0-900) /uL Eos # (Auto) 300 (0-450) /uL Baso # (Auto) 100 (0-100) /uL Sodium 138 (137-145) mmol/L Potassium 4.3 (3.4-5.1) mmol/L Chloride 109 H (98-107) mmol/L Carbon Dioxide 24 (22-32) mmol/L BUN 19 H (7-17) mg/dL Creatinine 0.86 (0.52-1.04) mg/dL Estimated GFR > 60.0 (>60) mL/min BUN/Creatinine Ratio 22.1 H (6-22) Glucose 78 (70-100) mg/dL Calcium 9.1 (8.4-10.2) mg/dL Magnesium 2.0 (1.6-2.3) mg/dL Total Bilirubin 0.4 (0.2-1.3) mg/dL AST 39 H (14-36) IU/L ALT 30 (<35) IU/L Alkaline Phosphatase 33 L (38-126) U/L Troponin I < 0.012 (0.01-0.034) ng/mL NT-Pro-B Natriuret Pep 152 H (<125) pg/mL Total Protein 6.3 (6.3-8.2) g/dL Albumin 3.5 (3.5-5.0) g/dL Globulin 2.8 (1.7-4.1) g/dL Albumin/Globulin Ratio 1.3 (1.0-2.8) Lipase 34 (23-300) U/L TSH (0.47-4.68) uIU/mL Urine Color Yellow Urine Appearance Clear Urine pH 6.5 (4.5-8.0) Ur Specific [place] 1.010 (1.000-1.035) Urine Protein Negative (Negative) Urine Glucose (UA) Negative (Negative) g/dL Urine Ketones Negative (NEGATIVE) Urine Occult Blood Negative (Negative) Urine Nitrate Negative (Negative) Urine Bilirubin Negative (NEGATIVE) Urine Urobilinogen 0.2 (0.2) E.U./dL Ur Leukocyte Esterase Negative (NEGATIVE) Urine RBC 0-1/hpf (0-5/HPF) Urine WBC 0-1/hpf (0-5/HPF) Ur Squamous Epith Cells 0-1 /hpf (0-5/HPF) Urine Bacteria None seen (None) Ur Culture Indicated? Cult not indicated 08/13/19 Range/Units 20:55 WBC (4.5-11.0) X10^3/uL RBC (4.0-5.2) X10^6/uL Hgb (12.0-16.0) g/dL Hct (36-46) % MCV (80-100) fL MCH (26-34) PG MCHC (30-36) % RDW (11.6-14.8) % Plt Count (150-400) X10^3/uL Neut % (Auto) (50-75) % Lymph % (Auto) (25-40) % [place] % (Auto) (3-14) % Eos % (Auto) (2-4) % Baso % (Auto) (0-2) % Neut # (Auto) (1353-7259) /uL Lymph # (Auto) (7779-6079) /uL [place] # (Auto) (0-900) /uL Eos # (Auto) (0-450) /uL Baso # (Auto) (0-100) /uL Sodium (137-145) mmol/L Potassium (3.4-5.1) mmol/L Chloride (98-107) mmol/L Carbon Dioxide (22-32) mmol/L BUN (7-17) mg/dL Creatinine (0.52-1.04) mg/dL Estimated GFR (>60) mL/min BUN/Creatinine Ratio (6-22) Glucose (70-100) mg/dL Calcium (8.4-10.2) mg/dL Magnesium (1.6-2.3) mg/dL Total Bilirubin (0.2-1.3) mg/dL AST (14-36) IU/L ALT (<35) IU/L Alkaline Phosphatase (38-126) U/L Troponin I (0.01-0.034) ng/mL NT-Pro-B Natriuret Pep (<125) pg/mL Total Protein (6.3-8.2) g/dL Albumin (3.5-5.0) g/dL Globulin (1.7-4.1) g/dL Albumin/Globulin Ratio (1.0-2.8) Lipase (23-300) U/L TSH 5.46 H (0.47-4.68) uIU/mL Urine Color Urine Appearance Urine pH (4.5-8.0) Ur Specific [place] (1.000-1.035) Urine Protein (Negative) Urine Glucose (UA) (Negative) g/dL Urine Ketones (NEGATIVE) Urine Occult Blood (Negative) Urine Nitrate (Negative) Urine Bilirubin (NEGATIVE) Urine Urobilinogen (0.2) E.U./dL Ur Leukocyte Esterase (NEGATIVE) Urine RBC (0-5/HPF) Urine WBC (0-5/HPF) Ur Squamous Epith Cells (0-5/HPF) Urine Bacteria (None) Ur Culture Indicated? Imaging Data Chest x-ray: Radiologist's Impression: IMPRESSION: No evidence acute pulmonary process. Dictated by: Benedict Gonzalez M.D. on 08/13/2019 at 20:44 MDM Narrative Medical decision making narrative: 953pm No signs of heart failure, liver failure, dramatic electrolyte abnormalities or exceptionally low albumin to explain the changes and weight gain. Will moved to abdominal CT scan given the slight white blood cell count and the bandlike abdominal pain she is experiencing. 1015 p.m. patient states that she gets all swollen up with IV contrast. She is not aware of an iodine allergy. Will pre treat with Benadryl and Solu-Medrol. 1045 no adverse effects noted with contrast post CT study 1206am reviewed findings with patient. She notes that her right foot is increasingly numb and she does not feel that she could walk out of here. Her and daughter are here and she continues to note that she is all alone she does have help at home that they will simply ignore her at home and is quite despondent over her progressive neurologic symptoms. She is concerned that she is having an MS flare and have agreed to contact her neurologist to see if she has any additional suggestions that might alleviate some of her symptoms. Certainly her progressive neurologic dysfunction and overall physical function is having a dramatic effect on her psychiatric function. She is convinced her symptoms are related to an MS flare. She say's she has discussed it with her neurologist who told her to go to the ER if she was worse. Will contact [facility] to see if they have any suggestions 1:05am Reviewed findings with Dr Tierney Kline, Neurology at . She did not feel strongly that this represented an MS flare and felt home discharge with safe. We briefly reviewed medications. She suggested that perhaps increasing topiramate (weight gain and water retention at lower doses paradoxically decreasing water retention and improving neuropathic pain control at higher doses) may be helpful. Review discussion with gel. She will call her neurologist tomorrow and Dr Kline will be messaging Dr Wilkinson so that she is aware Of tonight's visit. At this point, still is safe for home discharge Discharge Plan Departure Patient Disposition: Home Clinical Impression: Paresthesia of both lower extremities, Weight gain, Chronic fatigue and malaise Edema Qualifiers: Edema type: unspecified Qualified Code(s): R60.9 - Edema, unspecified Activity Restrictions/Additional Instructions: Thank you for coming in today I am sorry I did not find an obvious explanation for all of your symptoms. I do find it reassuring that there is no evidence of heart failure, renal failure, liver failure or overwhelming infection. Your CT scan of your belly does not reveal any significant pathology to explain the pain and discomfort that you are having. Please contact your MS neurologist tomorrow, the neurologist that I spoke to this evening will leave her a message. I hope that she has some suggestions or ideas that are helpful for you. It sounds like you are at a very frustrating stage in your personal life as well as your disease management. I wish you the best Prescriptions: No Action atorvastatin 10 mg tablet 1 tab PO QPM RF: 0 baclofen 10 mg tablet 1 tab PO TID RF: 0 diazepam 10 mg tablet 1 tab PO Q8H PRN (Reason: Spasms) RF: 0 fluconazole 100 mg tablet 1 tab PO PRN PRN (Reason: Rash) RF: 0 meclizine 12.5 mg tablet 1 tab PO PRN PRN (Reason: Vertigo) RF: 0 gabapentin 300 mg capsule 1 tab PO QID RF: 0 levothyroxine 200 mcg tablet 200 mcg PO DAILY RF: 0 hydrochlorothiazide 25 mg Tablet 25 mg PO DAILY Qty: 0 RF: 0 topiramate 100 mg tablet 100 mg PO DAILY RF: 0 metoclopramide HCl 10 mg tablet 5 mg PO DAILY RF: 0 eletriptan 40 mg tablet 1 tab PO PRN PRN (Reason: Migraine Headache) RF: 0 triamcinolone acetonide 0.1 % cream See Rx Instructions .ROUTE .COMPLEX RF: 0 zolpidem 5 mg tablet 5 mg PO BEDTIME PRN (Reason: Insomnia) RF: 0 hydrocodone-acetaminophen 5-325 mg tablet 1 - 2 tab PO Q6H PRN (Reason: pain) RF: 0 promethazine 12.5 mg tablet 25 mg PO Q6H PRN (Reason: Nausea And Vomiting) RF: 0 furosemide 20 mg tablet 10 mg PO RF: 0 insulin aspart U-100 [Novolog Flexpen U-100 Insulin] 100 unit/mL (3 mL) insulin pen 30 unit SUBCUT TIDWM RF: 0 Lantus Solostar U-100 Insulin 100 unit/mL (3 mL) insulin pen 52 unit SUBCUT BID RF: 0 Savella 100 mg tablet 100 mg PO BID RF: 0 hydrocodone-ibuprofen 5-200 mg tablet 1 tab PO Q4-6H PRN (Reason: acute kidney stone pain) Qty: 5 RF: 0 oxycodone 5 mg tablet 5 mg PO Q8H PRN (Reason: pain) Qty: 20 RF: 0 albuterol sulfate 90 mcg/actuation HFA aerosol inhaler 2 puff INHALATION Q4-6H PRN (Reason: shortness of breath or wheezing) Qty: 8.5 RF: 0 aspirin 325 mg Tablet 325 mg PO DAILY RF: 0 losartan 25 mg Tablet 25 mg PO DAILY RF: 0 levocetirizine 5 mg Tablet 5 mg PO DAILY RF: 0 pioglitazone [Actos] 15 mg Tablet 15 mg PO DAILY RF: 0 ibuprofen 800 mg tablet 600 mg PO Q8H PRN (Reason: pain) RF: 0 trazodone 50 mg Tablet 50 mg PO BEDTIME RF: 0 Referrals: Cedric Noel DO [Primary Care Provider] -
--- NOTE | 2019-08-13 20:08 | DI.RAD.S_ITS ---
PROCEDURE: XR CHEST 1V INDICATIONS: anasarca TECHNIQUE: One view of the chest was acquired. COMPARISON: [facility], CT, CT KIDNEY URETER BLADDER (KUB), 08/20/2018, 17:58. [facility], CR, XR CHEST 1V, 08/03/2019, 17:20. FINDINGS: Surgical changes and devices: None. Lungs and pleura: Lungs are clear. No pleural effusions or pneumothorax. Mediastinum: Mediastinal contours appear normal. Heart size is normal. Bilateral pericardial fat exaggerates the cardiac dimensions on chest x-ray. Bones and chest wall: No suspicious bony lesions. Overlying soft tissues appear unremarkable. IMPRESSION: No evidence acute pulmonary process. Dictated by: Benedict Gonzalez M.D. on 08/13/2019 at 20:44 Approved by: Benedict Gonzalez M.D. on 08/13/2019 at 20:45
[2019-08-13 21:09] LABS: Bacteria Urine None Seen
[2019-08-13 21:20] LABS: Appearance Urine UA CLEAR; Bilirubin Urine UA NEGATIVE (NEGATIVE); Color Urine UA YELLOW; Glucose Urine UA NEGATIVE (Negative); Ketones Urine UA NEGATIVE (NEGATIVE); Leukocyte Esterase Urine UA NEGATIVE (NEGATIVE); Nitrite Urine UA NEGATIVE (Negative); Occult Blood Urine UA NEGATIVE (Negative); Protein Urine UA NEGATIVE (Negative); Urobilinogen Urine UA 0.2 E.U./dL (0.2)
[2019-08-13 21:26] LABS: Alanine Aminotransferase 30 IU/L (<35); Albumin 3.5 g/dL (3.5-5.0); Albumin Globulin Ratio 1.3 (1.0-2.8); Alkaline Phosphatase 33 U/L (38-126); Aspartate Aminotransferase 39 IU/L (14-36); BUN Creatinine Ratio 22.1 (6-22); Bilirubin Total 0.4 mg/dL (0.2-1.3); Blood Urea Nitrogen 19 mg/dL (7-17); Calcium 9.1 mg/dL (8.4-10.2); Carbon Dioxide 24 mmol/L (22-32); Chloride 109 mmol/L (98-107); Estimated Glomerular Filt Rate > 60.0 mL/min (>60); Globulin 2.8 g/dL (1.7-4.1); Glucose 78 mg/dL (70-100); Lipase 34 U/L (23-300); Sodium 138 mmol/L (137-145); Total Protein 6.3 g/dL (6.3-8.2)
[2019-08-13 21:27] LABS: Add Manual Diff / Slide Review NO; Basophils Absolute Auto 100 /uL (0-100); Basophils Percent Auto 0.9 % (0-2); Eosinophils Absolute Auto 300 /uL (0-450); Eosinophils Percent Auto 1.9 % (2-4); Hematocrit 36.9 % (36-46); Hemoglobin 12.1 g/dL (12.0-16.0); Lymphocytes Absolute Auto 5100 /uL (1100-4500); Lymphocytes Percent Auto 35.4 % (25-40); Mean Corpuscular HGB Conc 32.9 % (30-36); Mean Corpuscular Hemoglobin 28.6 PG (26-34); Mean Corpuscular Volume 87.1 fL (80-100); Monocytes Absolute Auto 1100 /uL (0-900); Monocytes Percent Auto 7.3 % (3-14); Neutrophils Absolute Auto 7900 /uL (1500-7000); Neutrophils Percent Auto 54.5 % (50-75); Platelet Count 339 X10^3/uL (150-400); Red Blood Cell Count 4.24 X10^6/uL (4.0-5.2); Red Cell Distribution Width 15.1 % (11.6-14.8); White Blood Cell Count 14.4 X10^3/uL (4.5-11.0)
[2019-08-13 21:30] LABS: Culture Indicated Urine Cult Not Indicated; RBC Urine 0-1/HPF (0-5/HPF); Squamous Epithelial Cell Urine 0-1 /HPF (0-5/HPF); WBC Urine 0-1/HPF (0-5/HPF); pH Urine UA 6.5 (4.5-8.0)
[2019-08-13 21:31] LABS: Potassium 4.3 mmol/L (3.4-5.1)
[2019-08-13 21:38] VITALS: BP 126/70; PULSE 114; RESP 20; O2SAT 96
[2019-08-13 21:38] LABS: NT-proBNP (BNP-Adult 18+) 152 pg/mL (<125); Troponin I < 0.012 ng/mL (0.01-0.034)
[2019-08-13 22:01] LABS: Thyroid Stimulating Hormone 5.46 uIU/mL (0.47-4.68)
--- NOTE | 2019-08-13 22:03 | DI.CT.S_ITS ---
PROCEDURE: CT ABDOMEN PELVIS W CON INDICATIONS: abdominal pain and anasarca TECHNIQUE: After the administration of intravenous contrast, 5 mm thick sections acquired from the diaphragm to the symphysis. 5 mm coronal and sagittal reformats were acquired. For radiation dose reduction, the following was used: automated exposure control, adjustment of mA and/or kV according to patient size. COMPARISON: [facility], CR, XR CHEST 1V, 08/13/2019, 20:20. [facility], CT, CT KIDNEY URETER BLADDER (KUB), 08/20/2018, 17:58. FINDINGS: Image quality: Excellent. ABDOMEN: Lung bases: Lung bases are clear. Heart size is normal. Solid organs: Hepatic steatosis. Liver is normal in size and enhancement. Gallbladder is surgically absent. Biliary system is non dilated. Pancreas enhances normally. Spleen is normal in size and enhancement. No adrenal nodules. There is a 1 mm stone in the left renal pelvis. No hydronephrosis. Kidneys demonstrate normal size and enhancement. Peritoneum and bowel: Bowel loops demonstrate normal wall thickness and caliber. Normal appendix. No free fluid or air. Nodes and vessels: No retroperitoneal or mesenteric adenopathy by size criteria. Aorta and inferior vena cava are normal in size. Miscellaneous: No ventral hernias. There is body wall edema in the lower abdomen and upper thigh. A small amount of fluid in the periumbilical area. PELVIS: Genitourinary: Bladder wall thickness is normal. Miscellaneous: No inguinal hernias or adenopathy. Bones: No suspicious bony lesions. No vertebral body compression fractures. Degenerative disc disease at L4-L5 and L5-S1. IMPRESSION: 1. No acute intra-abdominal process. 2. Hepatic steatosis. 3. A 1 mm nonobstructing left renal stone. No significant discrepancy with the cnc machinist 2nd shift radiology preliminary report. Dictated by: Gilma Figueredo M.D. on 08/14/2019 at 8:22 Approved by: Gilma Figueredo M.D. on 08/14/2019 at 8:28
[2019-08-13] MEDS: GABAPENTIN 300 MG CAPSULE PO (22:06)
[2019-08-13] MEDS: diazePAM 5 MG TABLET PO (22:06)
[2019-08-13] MEDS: diphenhydrAMINE 50 MG/ML VIAL 25 MG IV (22:20)
[2019-08-13] MEDS: methylPREDNISolone 125 MG/2 ML VIAL IV (22:21)
[2019-08-13 23:08] VITALS: BP 135/73; PULSE 109; RESP 16; O2SAT 96
[2019-08-13 23:30] VITALS: BP 131/79; PULSE 105; RESP 16; O2SAT 97
[2019-08-14 00:30] VITALS: BP 129/90; PULSE 108; RESP 16; O2SAT 96
[2019-08-14 01:28] VITALS: BP 149/85; PULSE 108; RESP 16; TEMP 36.5; O2SAT 96
== END 2019-08-14 01:41 | disposition home or self-care (01) ==
PROVIDERS: Emergency Provider Emergency Medicine; Family Provider Family Medicine; PCP Family Medicine
DX: R60.1 Generalized edema (principal); R20.2 Paresthesia of skin; R63.5 Abnormal weight gain; R53.83 Other fatigue; R53.81 Other malaise; M79.7 Fibromyalgia; E13.8 Other specified diabetes mellitus with unspecified complications; Z79.4 Long term (current) use of insulin
CPT/HCPCS: 36415; 71045; 74177; 80053; 81001; 83690; 83735; 83880; 84443; 84484; 85025; 96374; 96375; 99284; J1200; J2930; Q9967

== ENCOUNTER → 2019-09-30 14:57 | Outpatient (CLI) | payer MEDICARE, OTHER, SELFPAY ==
[2019-10-02 06:49] LABS: COVID19 Sendout Not Detected (Not Detect)
== END ==
PROVIDERS: Family Provider Family Medicine; PCP Family Medicine; Visit Provider Nurse Practitioner
DX: Z01.812 Encounter for preprocedural laboratory examination (principal)
CPT/HCPCS: 87635

== ENCOUNTER 2019-10-28 14:30 | Outpatient (RCR) | payer MEDICARE, OTHER, SELFPAY ==
--- NOTE | 2019-08-19 17:51 | ST.OPIE ---
Visit Care Team Role Provider Type Cedric Noel DO Family Provider Non-Staff Primary Care Provider Specialty: Family Practice Address: [address] [place] [address], [place], [address] Email: Darby Elizalde MD Attending Provider Non-Staff Referring Provider Specialty: Medical Address: [address] [place] [address], [id number], [place], [address] Email: Speech-Language Pathology Initial Evaluation YARN SPINNER Clinical Swallow Evaluation Start: 08/19/19 13:32 Freq: Status: Active Protocol: Document 08/19/19 13:33 VAN (Rec: 08/19/19 14:52 VAN [id number]) Clinical Swallow Evaluation Session Time Visit Start Time 13:30 Visit Stop Time 14:15 Total Visit Minutes 45 Visit Information Visit Number Initial Evaluation Plan of Care Dates 08/19/19 - 11/19/19 Insurance Information Medicare Referral Referring Physician Dr. Darby Elizalde Reason for Referral Swallow Difficulties Setting Assessment Location Outpatient Care Visit Type Note Type Initial Evaluation Next Note Type Next Note Type Treatment Note Patient Information Identification Type Name,ID Card History The pt is a 44-yr-old female with history of MS (dx 2007) and 2 recent ER visits, one on 08/03/19 for SOB and Dyspnea, and the other on 08/12 for c/ o face, neck and throat swelling. During the latter visit, [facility] MD consulted with the pt's neurologist, who determined symptoms were not d/t MS flare, and cause of swelling and discomfort were not determined. Additional PMHx is significant for GERD (treating with medication), arthritis, back pain, blood clots, abnormal blood pressure, easy bruising, depression, Diabetes II, dizziness, falls, fibromyalgia, headaches, hearing problems (does not wear RICE), jaw and neck pain, SOB, sleep apnea, thyroid disorder, ulcers and vision problems (wears prescription glasses). Additionally, the pt has experienced ~30-lb weight gain in about 1 month, which she attributed to round of steroids that she was but no longer is taking. Today the pt c/o solids sticking in throat (e.g., noodles, chicken, sandwiches, etc.) and occasional difficulties swallowing liquids. She reports experiencing this intermittently since prior to MS dx. She described today's discomfort as feeling like a fist is shoved into right side of neck. My throat hurts. It feels like uvula is swollen and won't fit into my throat like it's supposed to. Subjective Observations Pt arrived on time and provided case history. Evaluation Liquids Trialed Thin Solids Trialed Puree,Dysphagia Mechanical, Mechanical Soft,Regular Administration Type Cup Single Sip,Cup Consecutive Sips,Self-Feeding Oral Impairment WNL Oral Strategies Upright at 90 degrees Oral Phase Comments Oral Peripheral Exam: Asymmetry of eyes observed, with greater opening of left eyelids than right. The pt attributed this to swelling of her right side face and neck; however, no unilateral swelling was observed. The pt has rotund face and jowls. She reported mild tenderness at right side during bilateral palpation. All other features were symmetrical. Strength, coordination and ROM of musculature WNL. Oral mucosa pink and without lesions. Uvula was symmetrical and WNL of size and placement. The pt has natural dentition in good condition. Soft palate elevated upon phonation. Hyolaryngeal elevation and anterior excursion was detected via palpation but difficulty to fully assess given neck girth. Oral Phase: WNL. Pt exhibited good anterior oral containment, oral prep including rotary mastication, and A/P propulsion. Swallow trigger appeared to be timely. No abnormal oral residue was observed. Pharyngeal Impairment Mildly Impaired Pharyngeal Strategies Sitting Upright (90 deg),Tilt Head Right,Effortful Swallow, Small Bites and Sips Pharyngeal Phase Comments The pt c/o sticking sensation with diced fruit, particularly pineapple, when swallowed without compensatory strategies. This was cleared with 2 swallows of thin liquid. Trialed pt with same texture using effortful swallow with same results. Trialed again with head turn to right + effortful swallow, and sticking sensation was eliminated. Pt tolerated other solid textures with same compensatory strategies without s/sx of aspiration and without complaints of sticking sensation or discomfort. Pt was educated on GERD symptoms and recommended modifications to diet and lifestyle. She verbalized understanding of information, which was provided orally and in writing. Findings Dysphagia Type Mild Pharyngeal Dysphagia Rehabilitation Potential Excellent Impressions The pt presents with mild pharyngeal dysphagia secondary to right side swelling or other undetermined cause of discomfort. Symptoms were alleviated with head turn to right and effortful swallow. The pt inquired if swallow exercises would be beneficial. Exercises are not recommended at this time, as etiology of dysphagia appears to be temporary changes to anatomical structures, whether from swelling or other, which would not be aided by exercise. The pt has several medical appointments pending in the near future which will hopefully give insight into the cause of her discomfort. Agreed to f/u in 3 wks and reassess. Diet Recommendations Liquids Order Thin Diet Order Regular Medication Recommendations As Tolerated Aspiration Precautions Recommended Precautions Upright at 90 Degrees,Small Bites/Sips,Effortful Swallow, Right Head Turn Treatment Plan Placement Recommendations after Home Discharge Appropriate for Therapy Yes Therapy Recommendations Ongoing assessment of swallow function and safety. Training of compensatory swallow strategies. Therapy may include exercises of swallow musculature if symptoms persist and exercises are deemed warranted. Dysphagia Goals 1. The pt will use compensatory swallow strategies independently to increase swallow safety and comfort with swallow. 2. The pt will tolerate least restrictive diet to meet her nutrition and hydration needs. YARN SPINNER Follow Up F/u in 3 wks
--- NOTE | 2019-10-07 15:29 | ST.IPDYTX ---
Visit Care Team Role Provider Type Cedric Noel DO Family Provider Non-Staff Primary Care Provider Specialty: Family Practice Address: [address] [address], [place], [address] Email: Darby Elizalde MD Attending Provider Non-Staff Referring Provider Specialty: Medical Address: [address] [place] [address], [id number], [place], [address] Email: ALUMINUM SHEET CUTTER Dysphagia Treatment ALUMINUM SHEET CUTTER Dysphagia Treatment Start: 08/19/19 13:32 Freq: Status: Active Protocol: Document 10/07/19 10:37 VAN (Rec: 10/07/19 10:46 VAN [id number]) Dysphagia Treatment Session Time Visit Start Time 10:30 Visit Stop Time 11:20 Total Visit Minutes 50 Visit Information Visit Number 1 Plan of Care Dates 08/19/19 - 11/19/19 Insurance Information Medicare Setting Assessment Location Outpatient Care Visit Type Note Type Treatment Note Next Note Type Next Note Type Treatment Note Patient Information Identification Type Name Subjective Observations Since last visit pt had PNA twice (lower right lobe, and bilateral lower lobe) and bronchitis. was exposed to COVID-19; the couple was quarantined. Pt has tested negative for COVID-19 x3. Pt underwent sleep study with bipap vs c-pap (using c-pap at home); results pending. Head and neck CT performed at [facility]; results also pending. ALUMINUM SHEET CUTTER called for results, which will be faxed. ENT appt still pending for evaluation of thyroid. The pt continues to feel sticking sensation on right side of throat with solids, particularly those that are hard, dry and/or crunchy. Swallow is improved with head turn to right. She is mainly eating soft foods in order to ease symptoms. In discussion RE instrumental swallow evaluation, the pt informed she had an allergic reaction to barium and/or other ingredients in pre-made barium products during previous barium swallow study. Treatment Liquids Trialed Thin Solids Trialed Mechanical Soft,Regular Administration Type Cup Single Sip,Self-Feeding Oral Strategies Upright at 90 degrees, Controlled Bite/Sip Size Pharyngeal Strategies Sitting Upright (90 deg),Turn Head Right,Effortful Swallow, Small Bites and Sips Treatment Activities Assessment of neck and laryngeal structures performed via palpation. No mass or asymmetry of tissue observed. Pt indicated pain level of 6 on scale of 10 with palpation at right side inferior level of thyroid cartilage. Assessed pt's swallow function /safety with oral trials of scrambled eggs and crispy pink with use of head turn to right side. Pt experienced scratchiness and sticking sensation at right side of throat with intake of pink by itself. The cleared both with liquid wash and with mixing the pink with eggs. For further evaluation of swallow function, recommend instrumental assessment. The pt informed she had an allergic reaction from barium products used in GI barium swallow stude. Discussed and recommed FEES to be performed at [facility], as this procedure is not available at [facility]. Also recommend referral to ENT for larygopharyngeal scope for assessment of internal tissues, thyroid gland, and overall throat health. The pt was in agreement with both of these recommendations, as well as continuing soft diet with head turn to right. Discussed POC with pt, including recommendations for ENT evaluation of pharynx and larynx to explain discomfort/ pain with swallow and instrumental evaluation of swallow for further assessment of swallow function and risk of aspiration. Since pt has hx of allergic reaction to barium, discussed obtaining FEES through [facility] (FEES not available at [facility]). Pt was in agreement. Assessment Patient Response to Treatment Fair Rehab Potential Fair Assessment of Improvement The pt continues with symptoms of dysphagia with discomfort and sticking sensation at right side of pharynx. She benefits from head turn to right side and liquid wash. In agreement with referral to ENT for evaluation of thyroid and will fax request to [facility]. Also recommend FEES assessment of swallow function at [facility] and will fax referral to Speech Pathology dept there. Diet Recommendations Recommendations Continue Current Diet Liquids Order Thin Diet Order Mechanical Soft Medication Recommendations As Tolerated Comments May benefit from carrier Aspiration Precautions Recommended Precautions Upright at 90 Degrees,Small Bites/Sips,Effortful Swallow, Right Head Turn Treatment Plan Placement Recommendation after Discharge Home,Outpatient Therapy Appropriate for Continued Therapy Yes Therapy Recommendations Ongoing assessment of swallow function and safety. Training of compensatory swallow strategies. Therapy may include exercises of swallow musculature if symptoms persist and exercises are deemed warranted. Dysphagia Goals 1. The pt will participate in instrumental swallow evaluation to assess swallow function/safety and guide POC. 2. The pt will use compensatory swallow strategies independently to increase swallow safety and comfort with swallow. 3. The pt will tolerate least restrictive diet to meet her nutrition and hydration needs. Referrals/Other Recommended Referrals Other,ENT Consult
--- NOTE | 2019-10-28 17:14 | ST.IPDYTX ---
Visit Care Team Role Provider Type Cedric Noel DO Family Provider Non-Staff Primary Care Provider Specialty: Family Practice Address: [address] [address], [place], [address] Email: Darby Elizalde MD Attending Provider Non-Staff Referring Provider Specialty: Medical Address: [address] [place] [address], [id number], [place], [address] Email: PIT SUPERVISOR Dysphagia Treatment PIT SUPERVISOR Dysphagia Treatment Start: 08/19/19 13:32 Freq: Status: Active Protocol: Document 10/28/19 17:00 VAN (Rec: 10/28/19 17:14 VAN [id number]) Dysphagia Treatment Session Time Visit Start Time 14:30 Visit Stop Time 15:15 Total Visit Minutes 45 Visit Information Visit Number 2 Plan of Care Dates 08/19/19 - 11/19/19 Insurance Information Medicare Setting Assessment Location Outpatient Care Visit Type Note Type Treatment Note Next Note Type Next Note Type Treatment Note Patient Information Identification Type Name Subjective Observations Pt arrived on time. Reported undergoing sleep study with resultant change from c-pap to bi-pap with improved sleep. Since last session, PIT SUPERVISOR was in formed by [facility] that FEES services are not available there. Discussed with pt. Pt agreeable to [facility] or mobile FEES services. Agreed to first pursue [place] and will request orders from MD. Treatment Solids Trialed Regular Treatment Activities Pt requested PIT SUPERVISOR's opinion whether new bi-pap mask should be nasal only or full mask given her dysphagia symptoms and occasional tendency of nausea during evenings. From a dysphagia standpoint, recommended nasal only if sufficient for oxygen/sleep benefits in order to reduce risk of aspiration should the pt have an emesis episode during sleep. Educated and trained pt in exercises to improve swallow efficiency and safety. Instructed pt to reduce duration/repetition of exercises should she experience pain; if pain persists, discontinue exercises until ENT evaluation is completed. The pt returned demonstration of exercises with occasional mild discomfort at right side jaw and neck. Repetitions and duration of exercises were minimized for patient safety and comfort. Education provided RE vocal exercises for laryngeal elevation and vocal quality, including strategies to reduce glottal ken. The pt was familiar with all from previous singing exercises and able to perform. Assessment Patient Response to Treatment Fair Rehab Potential Fair Assessment of Improvement The pt was responsive to training of exercises and to education. Able to perform all tasks independently. Instructions provided orally with demonstration and in writing for home practice. All questions were answered. Pt conitinues with difficulty and discomfort with swallow. Will request referral for FEES assessment at outside facility. Pt has ENT appointment next week. Agreed to f/u after ENT and FEES evaluations. Diet Recommendations Recommendations Continue Current Diet Liquids Order Thin Diet Order Mechanical Soft Medication Recommendations As Tolerated Comments May benefit from carrier Aspiration Precautions Recommended Precautions Upright at 90 Degrees,Small Bites/Sips,Effortful Swallow, Right Head Turn Treatment Plan Placement Recommendation after Discharge Home,Outpatient Therapy Appropriate for Continued Therapy Yes Therapy Recommendations Ongoing assessment of swallow function and safety. Training of compensatory swallow strategies. Therapy may include exercises of swallow musculature if symptoms persist and exercises are deemed warranted. Dysphagia Goals 1. The pt will participate in instrumental swallow evaluation to assess swallow function/safety and guide POC. 2. The pt will use compensatory swallow strategies independently to increase swallow safety and comfort with swallow. 3. The pt will tolerate least restrictive diet to meet her nutrition and hydration needs. Follow Up Plan F/u in 3 wks Referrals/Other Recommended Referrals Other,ENT Consult
--- NOTE | 2019-12-19 14:50 | ST.IPDYTX ---
Visit Care Team Role Provider Type Cedric Noel DO Family Provider Non-Staff Primary Care Provider Specialty: Family Practice Address: [address] [address], [place], [address] Email: Darby Elizalde MD Attending Provider Non-Staff Referring Provider Specialty: Medical Address: [facility], [address], [place], [address] Email: COUNTER ROLLER Dysphagia Treatment [facility]ph[facility]ia [facility] Start: 08/19/19 13:32 Freq: Status: Active Protocol: Document 12/19/19 14:42 VAN (Rec: 12/19/19 14:49 VAN [email or web address]) Dysphagia Treatment Visit Information Plan of Care Dates 08/19/19 - 11/19/19 Insurance Information Medicare Setting Assessment Location Outpatient Care Visit Type Note Type Discharge Summary Patient Information Subjective Observations The pt was last seen Oct 27. Per phone conversation with pt today and per medical records, on 11/18/19 the pt was admitted to [facility] ICU after a fall at home, likely d/t a flare of MS. She was hospitalized for 3 days and responded well to treatment. She was discharged home with Home Health PT and Nsg services. She is unable to attend outpatient services at this time and will be discharged from skilled Speech Therapy services. The pt was encouraged to request referral back to services when she is again mobile, should her dysphagia symptoms persist. She did report continued occasional coughing and tightness of throat but is finding some relief with use of inhaler, as recommended by Respiratory Therapy during her hospital stay. She verbalized understanding and agreement of POC and recommendations. Treatment Plan Appropriate for Continued Therapy No: Discharge from Speech Therapy services
== END 2019-12-30 08:44 ==
LOC: SP 14:30
PROVIDERS: Family Provider Family Medicine; PCP Family Medicine; Referring Provider Physical Medicine & Rehabilitation; Visit Provider Physical Medicine & Rehabilitation
DX: R13.19 Other dysphagia (principal); G35 Multiple sclerosis
CPT/HCPCS: 92526; 92610

== ENCOUNTER 2019-11-18 09:49 | Inpatient (IN) | payer MEDICARE, OTHER, SELFPAY ==
[2019-11-15 10:14] VITALS: BMI 32.5
[2019-11-18] VITALS (16 sets, daily range): BP systolic 131–165; BP diastolic 69–87; PULSE 102–113; RESP 15–27; TEMP 36.1–36.9; O2SAT 96–98; BMI 40.2
--- NOTE | 2019-11-18 10:28 | ED.WEAKNESS ---
HPI - Weakness General Chief complaint: Upper Respiratory Symptoms Stated complaint: glf on Sat, I have MS, feels like allergic reactio Time Seen by Provider: 11/18/19 10:10 Source: patient Mode of arrival: Wheelchair Limitations: no limitations History of Present Illness HPI Narrative: Patient is a 44-year-old female history of diabetes and MS presenting with generalized weakness and ground level fall. She states that she was extremely weak 2 nights ago and her daughter lowered her to the ground. Yesterday she was feeling extremely fatigued and slept most of the day. She has been having sore throat and feels like it hurts every time she swallows and like she is breathing through a straw. She denies any muffled voice. She denies any chest pain. She is followed at the [facility] clinic. She has been having like right arm weakness as well. This feels like an MS flare. MD Complaint: generalized weakness Related Data Home Medications Medication Instructions Recorded Confirmed atorvastatin 1 tab PO QPM 02/07/18 11/18/19 baclofen 1 - 2 tab PO TID PRN 02/07/18 11/18/19 diazepam 1 tab PO Q8H PRN 02/07/18 11/18/19 eletriptan 1 tab PO PRN PRN 02/07/18 11/18/19 fluconazole 1 tab PO PRN PRN 02/07/18 11/18/19 gabapentin 300 mg PO QID 02/07/18 11/18/19 levothyroxine 200 mcg PO DAILY 02/07/18 11/18/19 meclizine 12.5 mg PO PRN PRN 02/07/18 11/18/19 topiramate 100 mg PO DAILY 02/07/18 11/18/19 triamcinolone acetonide See Rx Instructions .ROUTE .COMPLEX 02/07/18 11/18/19 zolpidem 5 mg PO BEDTIME PRN 02/07/18 11/18/19 hydrocodone-acetaminophen 1 - 2 tab PO Q6H PRN 08/20/18 11/18/19 insulin aspart U-100 [Novolog See Rx Instructions .ROUTE .COMPLEX 08/20/18 11/18/19 Flexpen U-100 Insulin] milnacipran [Savella] 100 mg PO BID 08/20/18 11/18/19 promethazine 25 mg PO Q6H PRN 08/20/18 11/18/19 aspirin 325 mg PO DAILY 08/13/19 11/18/19 levocetirizine 5 mg PO DAILY 08/13/19 11/18/19 losartan 25 mg PO DAILY 08/13/19 11/18/19 pioglitazone [Actos] 15 mg PO DAILY 08/13/19 11/18/19 ibuprofen 600 mg PO Q8H PRN 08/14/19 11/18/19 trazodone 50 mg PO BEDTIME 08/14/19 11/18/19 Previous Rx's Medication Instructions Recorded hydrocodone-ibuprofen 1 tab PO Q4-6H PRN #5 tab 08/20/18 albuterol sulfate 2 puff INHALATION Q4-6H PRN #8.5 08/03/19 gram Allergies Allergy/AdvReac Type Severity Reaction Status Date / Time codeine Allergy Severe Rash Verified 09/30/19 16:21 lovastatin [From Advicor] Allergy Severe Anaphylaxis Verified 09/30/19 16:21 niacin [From Advicor] Allergy Severe Anaphylaxis Verified 09/30/19 16:21 pseudoephedrine Allergy Severe Anaphylaxis Verified 09/30/19 16:21 red (food color) Allergy Severe Anaphylaxis Verified 09/30/19 16:21 Penicillins Allergy Intermediate Rash Verified 09/30/19 16:21 ampicillin Allergy Rash Verified 09/30/19 16:21 erythromycin base Allergy Verified 09/30/19 16:21 glatiramer (copolymer 1) Allergy Verified 09/30/19 16:21 interferon beta-1a Allergy itching Verified 09/30/19 16:21 and rash Iodinated Contrast Media Allergy Verified 09/30/19 16:21 lisinopril Allergy Kidneys Verified 09/30/19 16:21 shut down metformin Allergy Gastrointestinal Verified 09/30/19 16:21 Upset Sulfa (Sulfonamide Allergy Verified 09/30/19 16:21 Antibiotics) artificial sweetners Allergy Uncoded 09/30/19 16:21 barium Allergy Uncoded 09/30/19 16:21 Review of Systems Review of Systems ROS Unobtainable: All systems reviewed & are unremarkable except as noted in HPI and below Constitutional Constitutional: Denies chills, Denies fever(s), Denies lethargy and Reports weakness ENT Ears, Nose, Mouth, and Throat: Reports as per HPI, Denies vertigo and Denies dizziness Cardiovascular Cardiovascular: Denies chest pain, Denies irregular heart rhythm, Denies lightheadedness, Denies palpitations and Denies orthopnea Gastrointestinal Gastrointestinal: Denies abdominal pain, Denies change in bowel habits, Denies diarrhea, Denies nausea and Denies vomiting Musculoskeletal Musculoskeletal: Denies back pain, Denies myalgias and Denies numbness Integumentary/Breasts Skin/Breast: Denies pruritus, Denies erythema, Denies rash and Denies wounds Neurologic Neurologic: Reports as per HPI, Denies confusion, Denies vertigo, Denies dizziness, Denies numbness and Reports weakness Psychiatric Psychiatric: Denies confusion Endocrine Endocrine: Denies palpitations Patient History Medical History (Updated 11/18/19 @ 15:25 by Desiree Chowdary DO) Chronically low serum potassium (Acute) Diabetes (Acute) Diabetic gastroparesis (Chronic) Fatigue (Chronic) Fibromyalgia (Acute) History of shingles (Acute) Hyperlipidemia (Chronic) Hypothyroidism (Chronic) Low vitamin D level (Chronic) Multiple sclerosis (Chronic) Obesity (BMI 30-39.9) (Chronic) Obstructive sleep apnea syndrome (Chronic) Osteoarthritis (Chronic) PCOS (polycystic ovarian syndrome) (Chronic) Raynauds disease (Acute) Type 2 diabetes mellitus (Chronic) Surgical History No pertinent past surgical history (Acute) Family History Family/Other Loud snoring Sleep apnea Depression Dementia Father Loud snoring Sleep apnea Insomnia Restless legs syndrome Obesity Hypertension Heart disease Depression Bipolar disorder Mother Insomnia Hypertension Heart disease Depression Anxiety Family/Other Loud snoring Obesity Hypertension Depression Anxiety Social History marital status: household members: spouse and children Smoking Status: Never smoker alcohol intake: current Smoking Status: Never smoker alcohol intake frequency: holidays/special occasions only Substance Use Type: does not use Exam Initial Vital Signs Initial Vital Signs: Vital Signs Temperature 97.6 F 11/18/19 10:05 Pulse Rate 109 H 11/18/19 10:05 Respiratory Rate 16 11/18/19 10:05 Blood Pressure 156/84 H 11/18/19 10:05 Pulse Oximetry 98 11/18/19 10:05 GENERAL: Well-appearing, well-nourished and in no acute distress. HEENT: Head atraumatic,EOMI, pupils reactive, face symmetric, moist mucous membranes PHARYNX: Minimal erythema no cervical lymphadenopathy no uvula deviation or enlarged tonsils CARDIOVASCULAR: Regular rate and rhythm without murmurs, rubs or gallops. RESPIRATORY: Breath sounds equal bilaterally, no wheezes rales or rhonchi. ABDOMEN: Soft, nontender. Normoactive bowel sounds all 4 quadrants. No guarding or rebound. EXTREMITIES: Normal range of motion, no clubbing or edema. Neurovascularly intact NEUROLOGICAL: Alert and oriented x4.Normal gait and speech. Diffusely weak. 4/5 in all extremities SKIN: Warm, dry, no laceration, no petechiae, no rashes or lesions. Course Orders Ordered: ED Orders 11/18/19 10:10 COVID19 -ED/INPAT/OR/L&D Stat 11/18/19 10:29 XR chest 1V Stat 11/18/19 10:50 Complete Blood Count AUTO DIFF Stat Comprehensive Metabolic Panel Stat Lactate (Lactic Acid) Stat NT-proBNP (BNP-Adult 18+) Stat Procalcitonin Stat 11/18/19 11:41 Throat Culture Stat 11/18/19 11:45 Blood Culture Stat 11/18/19 15:23 COVID19 -ED/INPAT/OR/L&D Stat 11/18/19 15:24 CT head/brain wo con Stat Discontinued Medications Methylprednisolone 1,000 mg/ (Sodium Chloride) 258 mls @ 258 mls/hr IV NOW ONE Stop: 11/18/19 15:08 Last Admin: 11/18/19 15:42 Dose: 258 mls/hr Documented by: BTONER Consultations Consultation #1: Dr. Helton, MS neurologist at [facility] recommends methylprednisolone 1000 mg once a day for 3 days however be sure to check a urine if UTI than no steroids. Request that MRI be done at [facility]. Time: 14:27 Consultation #2: Dr. england, requesting noncontrast head CT and a CTA. Will accept Time: 15:35 Vital Signs Vital signs: Vital Signs - 8 hr 11/18/19 10:05 11/18/19 11:20 09/07/20 11:30 Temperature 97.6 F Pulse Rate 109 H 104 H 107 H Respiratory Rate 16 Blood Pressure 156/84 H Pulse Oximetry 98 98 98 11/18/19 12:00 11/18/19 12:30 11/18/19 13:00 Temperature Pulse Rate 108 H 105 H 105 H Respiratory Rate 27 H 16 20 Blood Pressure 131/77 Pulse Oximetry 98 98 98 11/18/19 13:30 11/18/19 14:00 11/18/19 14:30 Temperature Pulse Rate 104 H 107 H 108 H Respiratory Rate 19 18 15 Blood Pressure 132/79 140/73 145/69 H Pulse Oximetry 97 97 96 11/18/19 15:00 11/18/19 15:30 Temperature Pulse Rate 113 H 106 H Respiratory Rate 16 18 Blood Pressure 150/75 H Pulse Oximetry 97 97 MDM - Weakness Lab Data Attestation: I reviewed the patient's lab results. Result diagrams: 11/18/19 10:50 11/18/19 10:50 Labs: Lab Results 11/18/19 11/18/19 11/18/19 Range/Units 10:10 10:50 10:50 WBC 10.0 (4.5-11.0) X10^3/uL RBC 4.78 (4.0-5.2) X10^6/uL Hgb 13.2 (12.0-16.0) g/dL Hct 40.3 (36-46) % MCV 84.4 (80-100) fL MCH 27.5 (26-34) PG MCHC 32.6 (30-36) % RDW 14.6 (11.6-14.8) % Plt Count 348 (150-400) X10^3/uL Neut % (Auto) 55.5 (50-75) % Lymph % (Auto) 35.9 (25-40) % Riley % (Auto) 5.4 (3-14) % Eos % (Auto) 2.6 (2-4) % Baso % (Auto) 0.6 (0-2) % Neut # (Auto) 5500 (0073-0538) /uL Lymph # (Auto) 3600 (4183-8480) /uL Riley # (Auto) 500 (0-900) /uL Eos # (Auto) 300 (0-450) /uL Baso # (Auto) 100 (0-100) /uL Sodium (137-145) mmol/L Potassium (3.4-5.1) mmol/L Chloride (98-107) mmol/L Carbon Dioxide (22-32) mmol/L BUN (7-17) mg/dL Creatinine (0.52-1.04) mg/dL Estimated GFR (>60) mL/min BUN/Creatinine Ratio (6-22) Glucose (70-100) mg/dL Lactate (0.7-2.1) mmol/L Calcium (8.4-10.2) mg/dL Total Bilirubin (0.2-1.3) mg/dL AST (14-36) IU/L ALT (<35) IU/L Alkaline Phosphatase (38-126) U/L NT-Pro-B Natriuret Pep (<125) pg/mL Total Protein (6.3-8.2) g/dL Albumin (3.5-5.0) g/dL Globulin (1.7-4.1) g/dL Albumin/Globulin Ratio (1.0-2.8) Procalcitonin < 0.05 (<0.5) ng/mL COVID-19 PCR Negative (Negative) 11/18/19 11/18/19 11/18/19 Range/Units 10:50 10:50 10:50 WBC (4.5-11.0) X10^3/uL RBC (4.0-5.2) X10^6/uL Hgb (12.0-16.0) g/dL Hct (36-46) % MCV (80-100) fL MCH (26-34) PG MCHC (30-36) % RDW (11.6-14.8) % Plt Count (150-400) X10^3/uL Neut % (Auto) (50-75) % Lymph % (Auto) (25-40) % Riley % (Auto) (3-14) % Eos % (Auto) (2-4) % Baso % (Auto) (0-2) % Neut # (Auto) (6845-3966) /uL Lymph # (Auto) (4283-7450) /uL Riley # (Auto) (0-900) /uL Eos # (Auto) (0-450) /uL Baso # (Auto) (0-100) /uL Sodium 139 (137-145) mmol/L Potassium 3.5 (3.4-5.1) mmol/L Chloride 105 (98-107) mmol/L Carbon Dioxide 26 (22-32) mmol/L BUN 17 (7-17) mg/dL Creatinine 0.94 (0.52-1.04) mg/dL Estimated GFR > 60.0 (>60) mL/min BUN/Creatinine Ratio 18.1 (6-22) Glucose 199 H (70-100) mg/dL Lactate 2.6 H (0.7-2.1) mmol/L Calcium 9.0 (8.4-10.2) mg/dL Total Bilirubin 0.2 (0.2-1.3) mg/dL AST 22 (14-36) IU/L ALT 18 (<35) IU/L Alkaline Phosphatase 50 (38-126) U/L NT-Pro-B Natriuret Pep 29 (<125) pg/mL Total Protein 6.6 (6.3-8.2) g/dL Albumin 3.8 (3.5-5.0) g/dL Globulin 2.8 (1.7-4.1) g/dL Albumin/Globulin Ratio 1.4 (1.0-2.8) Procalcitonin (<0.5) ng/mL COVID-19 PCR (Negative) 11/18/19 Range/Units 13:14 WBC (4.5-11.0) X10^3/uL RBC (4.0-5.2) X10^6/uL Hgb (12.0-16.0) g/dL Hct (36-46) % MCV (80-100) fL MCH (26-34) PG MCHC (30-36) % RDW (11.6-14.8) % Plt Count (150-400) X10^3/uL Neut % (Auto) (50-75) % Lymph % (Auto) (25-40) % Riley % (Auto) (3-14) % Eos % (Auto) (2-4) % Baso % (Auto) (0-2) % Neut # (Auto) (0800-9881) /uL Lymph # (Auto) (8001-0187) /uL Riley # (Auto) (0-900) /uL Eos # (Auto) (0-450) /uL Baso # (Auto) (0-100) /uL Sodium (137-145) mmol/L Potassium (3.4-5.1) mmol/L Chloride (98-107) mmol/L Carbon Dioxide (22-32) mmol/L BUN (7-17) mg/dL Creatinine (0.52-1.04) mg/dL Estimated GFR (>60) mL/min BUN/Creatinine Ratio (6-22) Glucose (70-100) mg/dL Lactate 1.1 (0.7-2.1) mmol/L Calcium (8.4-10.2) mg/dL Total Bilirubin (0.2-1.3) mg/dL AST (14-36) IU/L ALT (<35) IU/L Alkaline Phosphatase (38-126) U/L NT-Pro-B Natriuret Pep (<125) pg/mL Total Protein (6.3-8.2) g/dL Albumin (3.5-5.0) g/dL Globulin (1.7-4.1) g/dL Albumin/Globulin Ratio (1.0-2.8) Procalcitonin (<0.5) ng/mL COVID-19 PCR (Negative) Point of Care Testing Rapid Strep A Negative Urine Dip Bedside Urine Glucose Negative Bedside Urine Bilirubin - Negative Bedside Urine Ketone - Negative Urine Specific [place] 1.020 Bedside Urine Occult Blood - Negative Bedside Urine pH 6.0 Bedside Urine Protein - Negative Bedside Urine Urobilinogen - Negative Bedside Urine Nitrite - Negative Bedside Urine Leukocytes - Negative Esterase MDM Narrative Medical decision making narrative: The patient requires assistance to and from of bedside commode. She had mildly elevated lactate which resolved without any IV fluids. No leukocytosis or infection no need for antibiotics at this time. Patient has 4/5 strength in all extremities no focal deficits no sign of stroke, she is diffusely weak. Admitting physician Dr. dominguez requested CT a and head CT unfortunately patient has an anaphylactic reaction to iodine will hold off on CT a I do not have strong feelings for large vessel occlusion, carotid Dopplers can be an alternative on the floor. Discharge Plan Departure Patient Disposition: Admitted As Inpatient Clinical Impression: Multiple sclerosis Discharge Date/Time: 11/18/19 16:29 Referrals: Cedric Noel DO [Primary Care Provider] - Admit Date/Time: 11/18/19 15:53 Admit Provider: Rosalia England
--- NOTE | 2019-11-18 10:29 | DI.RAD.S_ITS ---
PROCEDURE: XR CHEST 1V INDICATIONS: sob TECHNIQUE: One view of the chest was acquired. COMPARISON: [facility], CR, XR CHEST 1V, 08/03/2019, 17:20. [facility], CR, XR CHEST 1V, 08/13/2019, 20:20. [facility], CT, CT KIDNEY URETER BLADDER (KUB), 08/20/2018, 17:58. FINDINGS: Surgical changes and devices: None. Lungs and pleura: Lungs are clear. No pleural effusions or pneumothorax. Mediastinum: Mediastinal contours appear stable, with a prominent right cardiac fat pad, which is better seen on prior CT. Heart size is normal. Bones and chest wall: No suspicious bony lesions. Overlying soft tissues appear unremarkable. IMPRESSION: No acute portable chest abnormality is seen. Prominent right cardiac fat pad again incidentally noted. Dictated by: Tim Rodriguez M.D. on 11/18/2019 at 9:49 Approved by: Tim Rodriguez M.D. on 11/18/2019 at 9:50
[2019-11-18 11:03] LABS: Add Manual Diff / Slide Review NO; Basophils Absolute Auto 100 /uL (0-100); Basophils Percent Auto 0.6 % (0-2); Eosinophils Absolute Auto 300 /uL (0-450); Eosinophils Percent Auto 2.6 % (2-4); Hematocrit 40.3 % (36-46); Hemoglobin 13.2 g/dL (12.0-16.0); Lymphocytes Absolute Auto 3600 /uL (1100-4500); Lymphocytes Percent Auto 35.9 % (25-40); Mean Corpuscular HGB Conc 32.6 % (30-36); Mean Corpuscular Hemoglobin 27.5 PG (26-34); Mean Corpuscular Volume 84.4 fL (80-100); Monocytes Absolute Auto 500 /uL (0-900); Monocytes Percent Auto 5.4 % (3-14); Neutrophils Absolute Auto 5500 /uL (1500-7000); Neutrophils Percent Auto 55.5 % (50-75); Platelet Count 348 X10^3/uL (150-400); Red Blood Cell Count 4.78 X10^6/uL (4.0-5.2); Red Cell Distribution Width 14.6 % (11.6-14.8)
[2019-11-18 11:16] LABS: Lactate (Lactic Acid) 2.6 mmol/L (0.7-2.1)
[2019-11-18 11:18] LABS: Alanine Aminotransferase 18 IU/L (<35); Albumin 3.8 g/dL (3.5-5.0); Albumin Globulin Ratio 1.4 (1.0-2.8); Alkaline Phosphatase 50 U/L (38-126); Aspartate Aminotransferase 22 IU/L (14-36); BUN Creatinine Ratio 18.1 (6-22); Bilirubin Total 0.2 mg/dL (0.2-1.3); Blood Urea Nitrogen 17 mg/dL (7-17); Carbon Dioxide 26 mmol/L (22-32); Chloride 105 mmol/L (98-107); Estimated Glomerular Filt Rate > 60.0 mL/min (>60); Globulin 2.8 g/dL (1.7-4.1); Glucose 199 mg/dL (70-100); HEMOLYSIS < 15 (0-50); Potassium 3.5 mmol/L (3.4-5.1); Sodium 139 mmol/L (137-145); Total Protein 6.6 g/dL (6.3-8.2)
[2019-11-18 11:37] LABS: Procalcitonin < 0.05 ng/mL (<0.5)
[2019-11-18 11:44] LABS: NT-proBNP (BNP-Adult 18+) 29 pg/mL (<125)
[2019-11-18 12:16] LABS: COVID19 -Nasal RAPID Negative (Negative)
--- NOTE | 2019-11-18 12:23 | PC.NURSE ---
pt states my arms feel tingling too, they is usually my MS, maybe that is whats going on with my throat
[2019-11-18 12:56] LABS: Reflexed Lactate in 2 Hours Y
[2019-11-18 13:41] LABS: Lactate 2HR (Lactic Acid Rflx) 1.1 mmol/L (0.7-2.1)
--- NOTE | 2019-11-18 15:09 | PC.NURSE ---
Assisted pt with bathroom using commode. Pt ambulated to the commode with 1 person assist. Pt complained of pain in her hands and feet. Pt needed assistance back to the bed from the sink due to being unstable with gait.
--- NOTE | 2019-11-18 15:24 | DI.CT.S_ITS ---
PROCEDURE: CT HEAD/BRAIN WO CON INDICATIONS: fall TECHNIQUE: Noncontrast 4.5 mm thick angled axial sections acquired from the foramen magnum to the vertex, with coronal and sagittal reformats. For radiation dose reduction, the following was used: automated exposure control, adjustment of mA and/or kV according to patient size. COMPARISON: [facility], CT, CT FACIAL BONES WO/W CON, 11/08/2018, 13:31. [facility], RG, CT SOFT TISSUE NECK WITH CONTRAST, 09/26/2019, 15:34. FINDINGS: Image quality: Excellent. CSF spaces: Basal cisterns are patent. No extra-axial fluid collections. Ventricles are normal in size and shape. Brain: No midline shift. No intracranial masses or hemorrhage. Davidson-white matter interface is normal. Skull and face: Calvarium and visualized facial bones are intact, without suspicious lesions. Sinuses: Visualized sinuses and mastoids are clear. IMPRESSION: No acute intracranial hemorrhage is seen. No acute intracranial process is seen. Dictated by: Tim Rodriguez M.D. on 11/18/2019 at 14:51 Approved by: Tim Rodriguez M.D. on 11/18/2019 at 14:53
[2019-11-18] MEDS: methylPREDNISolone 1,000 MG in SODIUM CHLORIDE 0.9% 250 ML 258 ML IV (15:42)
--- NOTE | 2019-11-18 16:25 | PC.NURSE ---
pt states bg of 91 now per glucose monitor.
--- NOTE | 2019-11-18 17:50 | PC.ADMIT ---
[email or web address] [employer] Admission Note: The patient,Josie Silvestre,44 y/o, was given written information regarding hospital policies, unit procedures and contact persons. Patient's smoking status: Never smoker. Vital Signs - 8 hr 11/18/19 10:05 11/18/19 11:20 11/18/19 11:30 Temperature 97.6 F Pulse Rate 109 H 104 H 107 H Respiratory Rate 16 Blood Pressure 156/84 H Pulse Oximetry 98 98 98 11/18/19 12:00 11/18/19 12:30 11/18/19 13:00 Temperature Pulse Rate 108 H 105 H 105 H Respiratory Rate 27 H 16 20 Blood Pressure 131/77 Pulse Oximetry 98 98 98 11/18/19 13:30 11/18/19 14:00 11/18/19 14:30 Temperature Pulse Rate 104 H 107 H 108 H Respiratory Rate 19 18 15 Blood Pressure 132/79 140/73 145/69 H Pulse Oximetry 97 97 96 11/18/19 15:00 11/18/19 15:30 11/18/19 15:54 Temperature Pulse Rate 113 H 106 H 107 H Respiratory Rate 16 18 26 H Blood Pressure 150/75 H 132/74 Pulse Oximetry 97 97 98 11/18/19 16:00 11/18/19 16:40 Temperature 98.4 F Pulse Rate 105 H 107 H Respiratory Rate 22 19 Blood Pressure 165/87 H Pulse Oximetry 98 96 Patient up from ED via stretcher. Patient was able to scoot herself over to the ICU bed. Patient has been A&O, calm and cooperative. Dr. Dominguez aware of patients pain issues. Patient also w/own insulin pump which was okayed by Dr. Dominguez for patient to use while in the hospital. Patient uses home BIPAP, which is bringing in for patient.
[2019-11-18 17:51] LABS: Hemoglobin A1C% w Est Avg Glu 5.9 % (4.0-6.0)
--- NOTE | 2019-11-18 22:20 | P.HP_ITS ---
History of Present Illness History of Present Illness Date Patient Seen: 11/18/19 Time Patient Seen: 22:15 Chief complaint: glf on Sat, I have MS, feels like allergic reactio Narrative: Harish Silvestre is a 44-year-old female with multiple medical problems the worst being multiple sclerosis and diabetes type 1 in sees a neurologist at the [facility]. Patient was working with her at home to sort through boxes in storage and apparently after spending about 9 hours doing this she got very exhausted. She actually stated that she collapsed and her daughter caught her keeping her from hitting her head and landed in a sitting position. She does describe that she she looked at her self in the mirror and noticed that she had right eye droop. She has actually gained about 50-60 lb started around May during the shut down, reports a normal weight of 150-160 lb, initially noticed swelling in her face, abdomen and legs. She states that as of recent she had some unusual neurological sensations in her arms the worst and pointing to her left arm stating that it felt like she was having pins and needles that extended from her mid medial forearm down to her wrist and then radiating back up into her underarm. She did show me a picture of her face and at that time her right eye appeared to be closed more than the left. She did not have any visual changes associated with that. She denies fevers sweats or chills, she does have TMJ that was corrected with ortho at on treat however she states that her teeth or shifting again, she denies chest pain, palpitations, shortness of breath, nausea or vomiting, dysuria, diarrhea, or constipation. She does state that she is immune compromised and is on immunotherapy which makes her is susceptible to infections In the emergency department they did a head CT which was negative. The patient was requested to undergo a CT MRA however she has a iodine contrast allergy and this was not done. The emergency department provider spoke to Dr. Helton, on- call neurologist at the [facility] to obtain further guidance and possible transfer, she was recommended to stay here and received a 3 day course of methylprednisolone 1000 mg IV daily. They stated that if she needed an MRI that they would rather have her come to the [facility] to have this done. She is afebrile, blood pressure is 146/75, heart rate 105, respiratory rate 19, oxygen saturation of 97% on room air she weighs 100 kg with a BMI of 40.2. CBC and basic chemistries are all within normal limits with exception of her glucose which was not 199 on admission and she is COVID-19 negative. Patient History Medical History (Updated 11/18/19 @ 22:41 by GILSON Boogie) Chronically low serum potassium (Acute) Diabetes (Acute) Diabetic gastroparesis (Chronic) Dislocation of left patella (Acute) Fatigue (Chronic) Fibromyalgia (Acute) History of shingles (Acute) Hyperlipidemia (Chronic) Hypothyroidism (Chronic) Low vitamin D level (Chronic) Multiple sclerosis (Chronic) Obstructive sleep apnea syndrome (Chronic) Osteoarthritis (Chronic) PCOS (polycystic ovarian syndrome) (Chronic) Raynauds disease (Acute) Type 2 diabetes mellitus (Chronic) Surgical History (Updated 11/18/19 @ 22:41 by GILSON Boogie) History of repair of anterior cruciate ligament of right knee (Acute) Hx of cholecystectomy (Acute) Family & Social History Family History Family/Other Loud snoring Sleep apnea Depression Dementia Father Loud snoring Sleep apnea Insomnia Restless legs syndrome Obesity Hypertension Heart disease Depression Bipolar disorder Mother Insomnia Hypertension Heart disease Depression Anxiety Family/Other Loud snoring Obesity Hypertension Depression Anxiety Social History: household members spouse,children Prior Living Arrangements House Safety & Behavioral: Feels Safe in Current Yes Environment Been Physically Hurt or No Threatened By a Person Suicidal Ideation Description None Suicide Plan Description No Plan Tobacco & Substance use: Smoking Status Never smoker alcohol intake current alcohol intake frequency a few times a month Substance Use Type does not use Meds Home Medications and Allergies Home Medications Medication Instructions Recorded Confirmed Type atorvastatin 1 tab PO QPM 02/07/18 11/18/19 History baclofen 1 - 2 tab PO TID PRN 02/07/18 11/18/19 History diazepam 1 tab PO Q8H PRN 02/07/18 11/18/19 History eletriptan 1 tab PO PRN PRN 02/07/18 11/18/19 History fluconazole 1 tab PO PRN PRN 02/07/18 11/18/19 History gabapentin 300 mg PO QID 02/07/18 11/18/19 History levothyroxine 200 mcg PO DAILY 02/07/18 11/18/19 History meclizine 12.5 mg PO PRN PRN 02/07/18 11/18/19 History topiramate 100 mg PO DAILY 02/07/18 11/18/19 History triamcinolone acetonide See Rx Instructions .ROUTE .COMPLEX 02/07/18 11/18/19 History zolpidem 5 mg PO BEDTIME PRN 02/07/18 11/18/19 History hydrocodone-acetaminophen 1 - 2 tab PO Q6H PRN 08/20/18 11/18/19 History hydrocodone-ibuprofen 1 tab PO Q4-6H PRN #5 tab 08/20/18 11/18/19 Rx insulin aspart U-100 [Novolog See Rx Instructions .ROUTE .COMPLEX 08/20/18 11/18/19 History Flexpen U-100 Insulin] milnacipran [Savella] 100 mg PO BID 08/20/18 11/18/19 History promethazine 25 mg PO Q6H PRN 08/20/18 11/18/19 History albuterol sulfate 2 puff INHALATION Q4-6H PRN #8.5 08/03/19 11/18/19 Rx gram aspirin 325 mg PO DAILY 08/13/19 11/18/19 History levocetirizine 5 mg PO DAILY 08/13/19 11/18/19 History losartan 25 mg PO DAILY 08/13/19 11/18/19 History pioglitazone [Actos] 15 mg PO DAILY 08/13/19 11/18/19 History ibuprofen 600 mg PO Q8H PRN 08/14/19 11/18/19 History trazodone 50 mg PO BEDTIME 08/14/19 11/18/19 History potassium chloride 30 meq PO DAILY 11/18/19 11/18/19 History Allergies Allergy/AdvReac Type Severity Reaction Status Date / Time codeine Allergy Severe Rash Verified 09/30/19 16:21 lovastatin [From Advicor] Allergy Severe Anaphylaxis Verified 09/30/19 16:21 niacin [From Advicor] Allergy Severe Anaphylaxis Verified 09/30/19 16:21 pseudoephedrine Allergy Severe Anaphylaxis Verified 09/30/19 16:21 red (food color) Allergy Severe Anaphylaxis Verified 09/30/19 16:21 Penicillins Allergy Intermediate Rash Verified 09/30/19 16:21 ampicillin Allergy Rash Verified 09/30/19 16:21 erythromycin base Allergy Verified 09/30/19 16:21 glatiramer (copolymer 1) Allergy Verified 09/30/19 16:21 interferon beta-1a Allergy itching Verified 09/30/19 16:21 and rash Iodinated Contrast Media Allergy Verified 09/30/19 16:21 lisinopril Allergy Kidneys Verified 09/30/19 16:21 shut down metformin Allergy Gastrointestinal Verified 09/30/19 16:21 Upset Sulfa (Sulfonamide Allergy Verified 09/30/19 16:21 Antibiotics) artificial sweetners Allergy Uncoded 09/30/19 16:21 barium Allergy Uncoded 09/30/19 16:21 Review of Systems Review of Systems ROS: Yes All systems reviewed with the patient and are negative except as otherwise documented Exam Vital Signs (past 8 hours): - 11/18/19 14:30 11/18/19 15:00 11/18/19 15:30 Temperature Pulse Rate 108 H 113 H 106 H Respiratory Rate 15 16 18 Blood Pressure 145/69 H 150/75 H Pulse Oximetry 96 97 97 11/18/19 15:54 11/18/19 16:00 11/18/19 16:40 Temperature 98.4 F Pulse Rate 107 H 105 H 107 H Respiratory Rate 26 H 22 19 Blood Pressure 132/74 165/87 H Pulse Oximetry 98 98 96 11/18/19 21:10 Temperature 97 F L Pulse Rate 105 H Respiratory Rate 19 Blood Pressure 146/75 H Pulse Oximetry 97 Oxygen Delivery Method Room Air Oxygen Flow Rate 0 Narrative Exam Narrative: Alert, oriented, well-developed 44 y.o. female, NAD HEENT: normocephalic, atraumatic, conjunctiva clear, sclera non-icteric, oral mucosa pink and moist Neck: supple, full ROM, no JVD, trachea is midline Resp: Lungs CTA, non-labored breathing CV: RRR, no murmur or rubs Abd: soft, non-tender, normoactive BTs Skin: no lesions or rashes, dry and intact Neuro: Alert and oriented X 4 w/no focal deficits. Speech clear and coherent. Extremities: moves all 4 extremities, is ambulatory, negative Zoila?s sign Psyche: normal mood and affect. Objective Labs Result Diagrams: 11/18/19 10:50 11/18/19 10:50 Labs: Laboratory Results - last 24 hr 11/18/19 11/18/19 11/18/19 10:10 10:50 10:50 WBC 10.0 RBC 4.78 Hgb 13.2 Hct 40.3 MCV 84.4 MCH 27.5 MCHC 32.6 RDW 14.6 Plt Count 348 Neut % (Auto) 55.5 Lymph % (Auto) 35.9 [place] % (Auto) 5.4 Eos % (Auto) 2.6 Baso % (Auto) 0.6 Neut # (Auto) 5500 Lymph # (Auto) 3600 [place] # (Auto) 500 Eos # (Auto) 300 Baso # (Auto) 100 Sodium Potassium Chloride Carbon Dioxide BUN Creatinine Estimated GFR BUN/Creatinine Ratio Glucose Hemoglobin A1c Lactate Calcium Total Bilirubin AST ALT Alkaline Phosphatase NT-Pro-B Natriuret Pep Total Protein Albumin Globulin Albumin/Globulin Ratio Procalcitonin < 0.05 COVID-19 PCR Negative 11/18/19 11/18/19 11/18/19 10:50 10:50 10:50 WBC RBC Hgb Hct MCV MCH MCHC RDW Plt Count Neut % (Auto) Lymph % (Auto) [place] % (Auto) Eos % (Auto) Baso % (Auto) Neut # (Auto) Lymph # (Auto) [place] # (Auto) Eos # (Auto) Baso # (Auto) Sodium 139 Potassium 3.5 Chloride 105 Carbon Dioxide 26 BUN 17 Creatinine 0.94 Estimated GFR > 60.0 BUN/Creatinine Ratio 18.1 Glucose 199 H Hemoglobin A1c Lactate 2.6 H Calcium 9.0 Total Bilirubin 0.2 AST 22 ALT 18 Alkaline Phosphatase 50 NT-Pro-B Natriuret Pep 29 Total Protein 6.6 Albumin 3.8 Globulin 2.8 Albumin/Globulin Ratio 1.4 Procalcitonin COVID-19 PCR 11/18/19 11/18/19 10:50 13:14 WBC RBC Hgb Hct MCV MCH MCHC RDW Plt Count Neut % (Auto) Lymph % (Auto) [place] % (Auto) Eos % (Auto) Baso % (Auto) Neut # (Auto) Lymph # (Auto) [place] # (Auto) Eos # (Auto) Baso # (Auto) Sodium Potassium Chloride Carbon Dioxide BUN Creatinine Estimated GFR BUN/Creatinine Ratio Glucose Hemoglobin A1c 5.9 Lactate 1.1 Calcium Total Bilirubin AST ALT Alkaline Phosphatase NT-Pro-B Natriuret Pep Total Protein Albumin Globulin Albumin/Globulin Ratio Procalcitonin COVID-19 PCR Assessment & Plan Assessment & Plan narrative: Josie Silvestre will be admitted inpatient for treatment and management of a multiple sclerosis flare Acute on chronic MS exacerbation, present on admission -She will be administered IV methylprednisolone 1 gram daily X 3 days -Cardiac telemetry -Continue home dose of Milnacipran (Savella) 100 mg po bid, will need to bring from home -Continue home doses of baclofen 10 mg po tid prn, gabapenin 300 mg po tid, topiramate 100 mg po daily Reported neurological deficit, not present on admission -She has a normal neuro exam, continue monitoring neuro status q shift -if she declines, Neurology at should be consulted again for transfer Diabetes type 1, on an insulin pump -Patient will check own glucose achs, report result to nursing, and bolus according to correctional scale -A1c indicates good control at 5.7 -holding pioglitazone -If patient runs out of insulin, she will accept subQ injections Hypothyroidism, chronic -Continue home dose of levothyroxine 200 mcg daily Asthma -Continue albuterol inhaler, may use her own VTE prophylaxis: Caprini risk score: 1 low risk. She is not receiving prophylaxis due to being ambulatory and medically low risk Consults: none Patient is admitted under inpatient status with expected length of stay greater than 2 midnights due to severity of presenting symptoms, risk of adverse event, and complexity of treatment plan. FEN: IV saline lock , carb control diet, BMP and magnesium in the am. Dispo: probable discharge to home Code Status: Full code as discussed with patient Quality VTE Deep Vein Thrombosis/Pulmonary Embolism Present on Admission: No
[2019-11-18] MEDS: TRAZODONE 50 MG TABLET PO (23:42)
[2019-11-18] MEDS: HYDROCODONE/ACET 5/325 TABLET 1 TAB PO (23:42)
[2019-11-18] MEDS: GABAPENTIN 300 MG CAPSULE PO (23:42)
[2019-11-18] MEDS: diazePAM 5 MG TABLET 10 MG PO (23:45)
[2019-11-18] MEDS: ZOLPIDEM 5 MG TABLET PO (23:45)
[2019-11-19] VITALS (11 sets, daily range): BP systolic 128–142; BP diastolic 60–73; PULSE 101–123; RESP 15–26; TEMP 36.5–37.7; O2SAT 92–97
[2019-11-19 05:08] LABS: Add Manual Diff / Slide Review NO; Basophils Absolute Auto 100 /uL (0-100); Basophils Percent Auto 0.5 % (0-2); Eosinophils Absolute Auto 0 /uL (0-450); Eosinophils Percent Auto 0.2 % (2-4); Hematocrit 40.4 % (36-46); Hemoglobin 13.3 g/dL (12.0-16.0); Lymphocytes Absolute Auto 2100 /uL (1100-4500); Mean Corpuscular Hemoglobin 27.5 PG (26-34); Mean Corpuscular Volume 83.4 fL (80-100); Monocytes Absolute Auto 200 /uL (0-900); Monocytes Percent Auto 1.6 % (3-14); Neutrophils Absolute Auto 9200 /uL (1500-7000); Neutrophils Percent Auto 79.7 % (50-75); Platelet Count 365 X10^3/uL (150-400); Red Blood Cell Count 4.84 X10^6/uL (4.0-5.2); Red Cell Distribution Width 14.6 % (11.6-14.8); White Blood Cell Count 11.5 X10^3/uL (4.5-11.0)
[2019-11-19 05:17] LABS: BUN Creatinine Ratio 21.3 (6-22); Blood Urea Nitrogen 17 mg/dL (7-17); Calcium 9.2 mg/dL (8.4-10.2); Carbon Dioxide 25 mmol/L (22-32); Chloride 107 mmol/L (98-107); Estimated Glomerular Filt Rate > 60.0 mL/min (>60); Glucose 99 mg/dL (70-100); HEMOLYSIS < 15 (0-50); Magnesium 1.8 mg/dL (1.6-2.3); Potassium 3.8 mmol/L (3.4-5.1); Sodium 140 mmol/L (137-145)
--- NOTE | 2019-11-19 06:06 | PC.NURSE ---
Product Responsibility Liaison Note-Patient is A/Ox4, very talkative, has received 1000mg IV methylprednisolone. After HS medications verified, Gabapentin, Trazodone, Ambien, [place], and diazepam given per patient's home routine. Own Bi-pap set up by RT, she was able to rest most of the night.
[2019-11-19] MEDS: LEVOTHYROXINE 100 MCG TABLET 200 MCG PO (06:44)
[2019-11-19] MEDS: ASPIRIN 325 MG TABLET PO (08:35)
[2019-11-19] MEDS: LOSARTAN 25 MG TABLET PO (08:35)
[2019-11-19] MEDS: MECLIZINE HCL 12.5 MG TABLET PO (08:35)
[2019-11-19] MEDS: TOPIRAMATE 100 MG TABLET PO (08:36)
[2019-11-19] MEDS: GABAPENTIN 300 MG CAPSULE PO ×4 (08:41→21:07)
[2019-11-19] MEDS: HYDROCODONE/ACET 5/325 TABLET 1 TAB PO ×2 (08:41→18:40)
[2019-11-19] MEDS: BACLOFEN 10 MG TABLET PO ×3 (08:41→21:06)
--- NOTE | 2019-11-19 10:45 | DI.RAD.S_ITS ---
PROCEDURE: XR SACRUM COCCYX MIN 2V INDICATIONS: fall, sacral pain TECHNIQUE: 3 views of the sacrum and coccyx acquired. COMPARISON: [facility], CT, CT ABDOMEN PELVIS W CON, 08/13/2019, 22:00. FINDINGS: Deformity of the sacrococcygeal junction however this appears chronic. This may be unchanged since 08/13/19. Soft tissues: Visualized bowel gas pattern is normal. No suspicious soft tissue densities. IMPRESSION: No definite acute fracture. If the patient's pain or other symptoms persist, consider further evaluation with MRI Chronic appearing deformity of the sacrococcygeal junction Dictated by: Jamey Cabezas M.D. on 11/19/2019 at 13:14 Approved by: Jamey Cabezas M.D. on 11/19/2019 at 13:17
[2019-11-19 10:55] LABS: Appearance Urine UA CLEAR; Bilirubin Urine UA NEGATIVE (NEGATIVE); Color Urine UA YELLOW; Glucose Urine UA NEGATIVE (Negative); Ketones Urine UA NEGATIVE (NEGATIVE); Leukocyte Esterase Urine UA NEGATIVE (NEGATIVE); Nitrite Urine UA NEGATIVE (Negative); Occult Blood Urine UA NEGATIVE (Negative); Protein Urine UA TRACE (Negative); Urobilinogen Urine UA 0.2 E.U./dL (0.2); WBC Urine None Seen (0-5/HPF)
[2019-11-19] MEDS: SODIUM CHLORIDE 0.9% FLUSH 10 ML IV ×2 (11:18→21:07)
[2019-11-19] MEDS: INSULIN ASPART 100 UNIT/ML INSULN PEN SUBCUT ×2 (11:18→12:26)
[2019-11-19 11:19] LABS: pH Urine UA 6.5 (4.5-8.0)
[2019-11-19 11:23] LABS: Bacteria Urine Occasional (0-1); Culture Indicated Urine Cult Not Indicated; RBC Urine None Seen (0-5/HPF); Squamous Epithelial Cell Urine 1-5 /HPF (0-5/HPF)
--- NOTE | 2019-11-19 11:50 | PM.PN.1 ---
Subjective Subjective Date Patient Seen: 11/19/19 Time Patient Seen: 11:50 Interval history: Josie Silvestre is a 44-year-old female with a past medical history of multiple sclerosis, fibromyalgia, hypertension, diabetes, obesity who presented to the emergency room after a fall. She was admitted with a possible flare of MS after discussion with neurology at the [facility]. She still continues to feel some pins and needles sensations in her bilateral feet as well as her bilateral fingers as well. She manages her diabetes with an insulin pump which has a continuous glucose monitor as well. This morning her sugars were controlled but without eating her sugars are up into the 200s today. We discussed increasing her basal rate by 25% which she is able to do on her pump during our encounter. She continues to complain of coccygeal pain, and have ordered her for an x-ray today. Her urinalysis was negative for infection. Plan is to continue methylprednisolone 1 g every 24 hours for 3 days, then likely discharged on a taper if her symptoms are improved. If her symptoms continue after steroids, likely will need an MRI which according to on-call neurologist should be done at the [facility]. Exam Vital Signs (past 8 hours): - 11/19/19 05:00 11/19/19 08:25 11/19/19 08:35 Temperature 98.0 F 97.7 F Pulse Rate 102 H 113 H 114 H Respiratory Rate 18 24 Blood Pressure 128/73 139/69 139/69 Pulse Oximetry 96 95 11/19/19 10:42 Temperature Pulse Rate Respiratory Rate Blood Pressure Pulse Oximetry 96 Oxygen Delivery Method Room Air Oxygen Flow Rate 0 Narrative Exam Narrative: Alert, oriented, well-developed 44 y.o. female, NAD HEENT: normocephalic, atraumatic, conjunctiva clear, sclera non-icteric, oral mucosa pink and moist Neck: supple, full ROM, no JVD, trachea is midline Resp: Lungs CTA, non-labored breathing CV: RRR, no murmur or rubs Abd: soft, non-tender, normoactive BTs Skin: no lesions or rashes, dry and intact Neuro: Alert and oriented X 4 w/no focal deficits. Reports sharp pains upon palpation of her bilateral upper and lower extremities. Speech clear and coherent. Extremities: moves all 4 extremities, is ambulatory, negative Zoila?s sign Psyche: normal mood and affect. Objective Labs Result Diagrams: 11/19/19 04:43 11/19/19 04:43 Labs: Laboratory Results - last 24 hr 11/18/19 11/18/19 11/18/19 10:10 10:50 13:14 WBC RBC Hgb Hct MCV MCH MCHC RDW Plt Count Neut % (Auto) Lymph % (Auto) [place] % (Auto) Eos % (Auto) Baso % (Auto) Neut # (Auto) Lymph # (Auto) [place] # (Auto) Eos # (Auto) Baso # (Auto) Sodium Potassium Chloride Carbon Dioxide BUN Creatinine Estimated GFR BUN/Creatinine Ratio Glucose Hemoglobin A1c 5.9 Lactate 1.1 Calcium Magnesium Urine Color Urine Appearance Urine pH Ur Specific [place] Urine Protein Urine Glucose (UA) Urine Ketones Urine Occult Blood Urine Nitrate Urine Bilirubin Urine Urobilinogen Ur Leukocyte Esterase Urine RBC Urine WBC Ur Squamous Epith Cells Urine Bacteria Ur Culture Indicated? Nasal Screen MRSA (PCR) COVID-19 PCR Negative 11/19/19 11/19/19 11/19/19 00:20 04:43 04:43 WBC 11.5 H RBC 4.84 Hgb 13.3 Hct 40.4 MCV 83.4 MCH 27.5 MCHC 33.0 RDW 14.6 Plt Count 365 Neut % (Auto) 79.7 H D Lymph % (Auto) 18.0 L [place] % (Auto) 1.6 L Eos % (Auto) 0.2 L Baso % (Auto) 0.5 Neut # (Auto) 9200 H Lymph # (Auto) 2100 [place] # (Auto) 200 Eos # (Auto) 0 Baso # (Auto) 100 Sodium 140 Potassium 3.8 Chloride 107 Carbon Dioxide 25 BUN 17 Creatinine 0.80 Estimated GFR > 60.0 BUN/Creatinine Ratio 21.3 Glucose 99 D Hemoglobin A1c Lactate Calcium 9.2 Magnesium 1.8 Urine Color Urine Appearance Urine pH Ur Specific [place] Urine Protein Urine Glucose (UA) Urine Ketones Urine Occult Blood Urine Nitrate Urine Bilirubin Urine Urobilinogen Ur Leukocyte Esterase Urine RBC Urine WBC Ur Squamous Epith Cells Urine Bacteria Ur Culture Indicated? Nasal Screen MRSA (PCR) Negative for mrsa COVID-19 PCR 11/19/19 10:45 WBC RBC Hgb Hct MCV MCH MCHC RDW Plt Count Neut % (Auto) Lymph % (Auto) [place] % (Auto) Eos % (Auto) Baso % (Auto) Neut # (Auto) Lymph # (Auto) [place] # (Auto) Eos # (Auto) Baso # (Auto) Sodium Potassium Chloride Carbon Dioxide BUN Creatinine Estimated GFR BUN/Creatinine Ratio Glucose Hemoglobin A1c Lactate Calcium Magnesium Urine Color Yellow Urine Appearance Clear Urine pH 6.5 Ur Specific [place] 1.020 Urine Protein Trace H Urine Glucose (UA) Negative Urine Ketones Negative Urine Occult Blood Negative Urine Nitrate Negative Urine Bilirubin Negative Urine Urobilinogen 0.2 Ur Leukocyte Esterase Negative Urine RBC None seen Urine WBC None seen Ur Squamous Epith Cells 1-5 /hpf Urine Bacteria Occasional (0-1) Ur Culture Indicated? Cult not indicated Nasal Screen MRSA (PCR) COVID-19 PCR Assessment & Plan Assessment & Plan narrative: Josie Silvestre is a 44-year-old female with a past medical history of multiple sclerosis, fibromyalgia, hypertension, diabetes, obesity who presented to the emergency room after a fall. She was admitted with a possible flare of MS after discussion with neurology at the [facility]. 1. MS flare, acute on chronic, present on admission -Continue IV methylprednisolone 1 gram daily X 3 days. Patient presented with reported fatigue, generalized weakness, bilateral distal extremity pins/needles sensations and hypersensitivity. Feeling improved after first dose of steroids. She noticed some facial asymmetry prior to ER arrival but now resolved. Consider transfer for MRI per neurology if symptoms return. -Cardiac telemetry -Continue home dose of Milnacipran (Savella) 100 mg po bid, will need to bring from home -Continue home doses of baclofen 10 mg po tid prn, gabapenin 300 mg po tid, topiramate 100 mg po daily 2. Diabetes type 1.5, on an insulin pump -Patient will check own glucose achs, report result to nursing, and bolus according to her own correctional scale with pump. -A1c indicates good control at 5.7 -holding pioglitazone -will increase basal rate by 25% today given steroids and continue to recommend adjustments as needed. 3. Hypothyroidism, chronic -Continue home dose of levothyroxine 200 mcg daily 4. Asthma -Continue albuterol inhaler, may use her own Patient is admitted under inpatient status with expected length of stay greater than 2 midnights due to severity of presenting symptoms, risk of adverse event, and complexity of treatment plan. Dispo: probable discharge to home Code Status: Full code as discussed with patient Quality VTE Deep Vein Thrombosis/Pulmonary Embolism Present on Admission: No
--- NOTE | 2019-11-19 12:12 | CM.DANOTE ---
DCP: Case received, EMR reviewed and met with patient. Introduced self and role. Was able to obtain information from patient regarding her baseline activity level prior to hospitalization. DCP assessment completed with information currently available. Patient is a 44 year old female who admitted yesterday afternoon to the care of the hospitalist team. PCP: [facility]. Patient came to the hospital via private vehicle secondary to increased weakness. Patient has started to fall at home, daughter lowered her to the ground. Patient has history of MS, and felt that this was an exacerbation of her disease. Patient has history of Diabetes type 1, and has an insulin pump. She also goes to [facility] clinic and sees a neurologist. Neurology was consulted, and recommendations are for patient to have 3 days of Methylprednisolone. Met with patient in her room. She is pleasant, conversive, and alert and oriented. She resides in [place] with her spouse, [place]ber, and daughter. She mentioned that she uses a four wheel walker at home, and is able to drive as well. She is independent at baseline. Patient also goes to the [facility] in [place] as well. P: DCP to continue to follow. Patient should be able to go home when she is medically stable. Taylor Boothe, RN/Outside Dealer Sales Representative
[2019-11-19] MEDS: IBUPROFEN 400 MG TABLET 600 MG PO (14:01)
[2019-11-19] MEDS: methylPREDNISolone 1,000 MG in SODIUM CHLORIDE 0.9% 250 ML 258 ML IV (14:51)
--- NOTE | 2019-11-19 15:00 | PC.NURSE ---
pt handling own blood glucoses and coverage per md order and using her pump- charting as pt reports
[2019-11-19] MEDS: ATORVASTATIN 10 MG TABLET PO (18:15)
[2019-11-19] MEDS: TRAZODONE 50 MG TABLET PO (21:06)
[2019-11-19] MEDS: SAVELLA 100 MG 100 EACH PO (21:06)
[2019-11-19] MEDS: ZOLPIDEM 5 MG TABLET PO (21:07)
[2019-11-19] MEDS: ACETAMINOPHEN 325 MG TABLET 650 MG PO (21:14)
[2019-11-20] VITALS (9 sets, daily range): BP systolic 145–192; BP diastolic 71–101; PULSE 119–133; RESP 18–20; TEMP 36.3–37.1; O2SAT 95–98
[2019-11-20] MEDS: SODIUM CHLORIDE 0.9% FLUSH 10 ML IV ×3 (04:02→22:01)
[2019-11-20] MEDS: ACETAMINOPHEN 325 MG TABLET 650 MG PO (04:02)
[2019-11-20] MEDS: ONDANSETRON 4 MG/2 ML INJ IV (04:02)
[2019-11-20] MEDS: LEVOTHYROXINE 100 MCG TABLET 200 MCG PO (08:57)
[2019-11-20] MEDS: GABAPENTIN 300 MG CAPSULE PO ×4 (08:58→21:24)
[2019-11-20] MEDS: ASPIRIN 325 MG TABLET PO (08:58)
[2019-11-20] MEDS: LORATADINE 10 MG TABLET PO (08:58)
[2019-11-20] MEDS: SAVELLA 100 MG 100 EACH PO ×2 (08:59→21:24)
[2019-11-20] MEDS: diazePAM 5 MG TABLET 10 MG PO (09:03)
[2019-11-20] MEDS: LOSARTAN 25 MG TABLET PO (09:17)
--- NOTE | 2019-11-20 10:39 | P.PN_ITS ---
Subjective Subjective Date Patient Seen: 11/20/19 Time Patient Seen: 10:40 Interval history: Josie Silvestre is a 44-year-old female with a past medical history of multiple sclerosis, fibromyalgia, hypertension, diabetes, obesity who presented to the emergency room after a fall. She was admitted with a possible flare of MS after discussion with neurology at the [facility]. She still continues to feel some pins and needles sensations in her bilateral feet but not as much in her fingers . Weakness has improved in her upper extremities, still feels somewhat weak in bilateral lower extremities. Denies vision changes. No acute overnight events. She manages her diabetes with an insulin pump which has a continuous glucose monitor as well. She had a zoom meeting with her care team and made some small adjustments given steroid pulse. Have ordered her for PT. Will start taper tomorrow with 120mg of prednsione to taper by 20 each day. Exam Vital Signs (past 8 hours): - 11/20/19 04:15 11/20/19 04:43 11/20/19 08:53 Temperature 97.8 F 98.3 F Pulse Rate 133 H 120 H Respiratory Rate 20 20 Blood Pressure 192/101 H 162/79 H 156/83 H Pulse Oximetry 98 95 11/20/19 09:00 Temperature Pulse Rate Respiratory Rate Blood Pressure Pulse Oximetry 95 Oxygen Delivery Method Room Air Oxygen Flow Rate 0 Narrative Exam Narrative: Alert, oriented, well-developed 44 y.o. female, NAD HEENT: normocephalic, atraumatic, conjunctiva clear, sclera non-icteric, oral mucosa pink and moist Neck: supple, full ROM, no JVD, trachea is midline Resp: Lungs CTA, non-labored breathing CV: RRR, no murmur or rubs Abd: soft, non-tender, normoactive BTs Skin: no lesions or rashes, dry and intact Neuro: Alert and oriented X 4 w/no focal deficits. Reports sharp pains upon palpation of her bilateral upper and lower extremities. Speech clear and coherent. Extremities: moves all 4 extremities, is ambulatory, negative Zoila?s sign Psyche: normal mood and affect. Objective Labs Result Diagrams: 11/19/19 04:43 11/19/19 04:43 Labs: Laboratory Results - last 24 hr 11/19/19 10:45 Urine Color Yellow Urine Appearance Clear Urine pH 6.5 Ur Specific [place] 1.020 Urine Protein Trace H Urine Glucose (UA) Negative Urine Ketones Negative Urine Occult Blood Negative Urine Nitrate Negative Urine Bilirubin Negative Urine Urobilinogen 0.2 Ur Leukocyte Esterase Negative Urine RBC None seen Urine WBC None seen Ur Squamous Epith Cells 1-5 /hpf Urine Bacteria Occasional (0-1) Ur Culture Indicated? Cult not indicated Assessment & Plan Assessment & Plan narrative: Josie Silvestre is a 44-year-old female with a past medical history of multiple sclerosis, fibromyalgia, hypertension, diabetes, obesity who presented to the emergency room after a fall. She was admitted with a possible flare of MS after discussion with neurology at the [facility]. 1. MS flare, acute on chronic, present on admission -Continue IV methylprednisolone 1 gram daily X 3 days. Today is day 3. Patient presented with reported fatigue, generalized weakness, bilateral distal extremity pins/needles sensations and hypersensitivity. Feeling improved but slowly. She noticed some facial asymmetry prior to ER arrival but now resolved. Consider transfer for MRI per neurology. Attempted to reach out to neurology but unable to contact thus far. Will retry to discuss regarding further management. -Cardiac telemetry -Continue home dose of Milnacipran (Savella) 100 mg po bid, will need to bring from home -Continue home doses of baclofen 10 mg po tid prn, gabapenin 300 mg po tid, topiramate 100 mg po daily -Will order her for PT today. 2. Diabetes type 1.5, on an insulin pump -Patient will check own glucose achs, report result to nursing, and bolus according to her own correctional scale with pump. -A1c indicates good control at 5.7 -holding pioglitazone -will increase basal rate by 25% today given steroids and continue to recommend adjustments as needed. 3. Hypothyroidism, chronic -Continue home dose of levothyroxine 200 mcg daily 4. Asthma -Continue albuterol inhaler, may use her own 5. Morbid obesity, BMI 40.8, acute, present on admission - patient is at increased risk of complications due to obesity, steroid use, and her diabetes. - Patient is admitted under inpatient status. Anticipate discharge home in the next 1-2 days depending on symptoms and consultation with her outpatient neurology team. Code Status: Full code as discussed with patient Quality VTE Deep Vein Thrombosis/Pulmonary Embolism Present on Admission: No
--- NOTE | 2019-11-20 11:16 | CM.DPC ---
DCP Cont: Per MD, pt continues to receive high doses of steroids and seems to be stabilizing but not ready for d/c today and will consult with Neurology to confirm if contrast MRI needed or not. Per RN, pt seems to be independent but maybe weaker than baseline. PT ordered and pending. Plan: SW to follow after PT initial eval and recommendations later today towards confirming safe d/c home when medically stable and any further d/c planning needs. RAÚL Dnagelo
--- NOTE | 2019-11-20 13:55 | PT.IIE ---
Current Diagnoses Multiple sclerosis (11/18/19) Surgical History (Last Updated 11/18/19 @ 22:41 by GILSON Boogie) History of repair of anterior cruciate ligament of right knee (Acute) Hx of cholecystectomy (Acute) Medical History (Last Updated 11/18/19 @ 22:41 by GILSON Boogie) Chronically low serum potassium (Acute) Diabetes (Acute) Diabetic gastroparesis (Chronic) Dislocation of left patella (Acute) Fatigue (Chronic) Fibromyalgia (Acute) History of shingles (Acute) Hyperlipidemia (Chronic) Hypothyroidism (Chronic) Low vitamin D level (Chronic) Multiple sclerosis (Chronic) Obstructive sleep apnea syndrome (Chronic) Osteoarthritis (Chronic) PCOS (polycystic ovarian syndrome) (Chronic) Raynauds disease (Acute) Type 2 diabetes mellitus (Chronic) Physical Therapy Inpatient Evaluation/Re-Eval M1 PT/OT-IP Prior Functional Status Start: 11/20/19 14:56 Freq: NEEDED Status: Active Protocol: Document 11/20/19 13:55 AB (Rec: 11/20/19 15:27 AB [id number]) Medical Review Prior Functional Status Medical History Reviewed Yes Communication able to make needs known Mobility and Gait stated that she is modified independent with all mobilties and ambulation without AD indoors but occasionally uses a 4WW depending on how she feels. uses 4WW more for outdoor ambulation but occasionally uses a manual w/c . Social History Household Members spouse,children Living Arrangements House Number of Floors (Floors) One Floor Number of Stairs To Enter/Railing? lives on a rambler: has a small step to enter; has a step to get to bedroom level. Home Environment Standard Height Toilet,Walk in Shower Home Equipment Four Wheel Walker,Manual Wheelchair,Shower Seat without Backrest,Hand Held Shower, Grab Bars Near Toilet Additional Social History Comment pt stated that spouse and child will not be able to assist her at home M2 PT-IP Current Condition Start: 11/20/19 14:56 Freq: NEEDED Status: Active Protocol: Document 11/20/19 13:55 AB (Rec: 11/20/19 15:27 AB [id number]) Physical Therapy Current Condition Current Condition Evaluation Date 11/20/19 Treatment Diagnosis MS exacerbation; difficulty in walking Onset Date 11/18/19 Precautions Other Precautions falls M3 PT-IP Subjective Start: 11/20/19 14:56 Freq: NEEDED Status: Active Protocol: Document 11/20/19 13:55 AB (Rec: 11/20/19 15:27 AB [id number]) Subjective Physical Therapy Visit Type Type Initial Evaluation Visit Start Time 13:55 Visit Stop Time 14:37 Total Visit Minutes 42 Number of [employer] Visits 0 Physical Therapy Visit Comments Patient Comments agreeable to do PT Therapy Pain Assessment Pain When Pain Assessed At Rest M4 PT-IP Mobility and Gait Start: 11/20/19 14:56 Freq: NEEDED Status: Active Protocol: Document 11/20/19 13:55 AB (Rec: 11/20/19 15:27 AB [id number]) PT-Bed Mobility Assessment Supine to Sit Supine to Sit Standby Assistance Sit to Supine Sit to Supine Standby Assistance Scooting Scooting to Edge of Bed Standby Assistance PT-Transfer Assessment Sit to and From Stand Sit to and from Stand Standby Assistance,Contact Guard Assistance,Use of Upper Extremities Equipment Transfer Assistive Device Gait Belt,Front Wheeled Walker Transfers Transfer Destination Toilet Transfer Technique ambulation using FWW Transfer Ability Level of Assist Standby Assistance,Contact Guard Assistance,Use of Upper Extremities Comments Mobility Comments pt completed sit to stand from chair CGA and ambulation in room using FWW SBA to CGA. completed sit<>stand SBA. requested to use the toilet and ambulation using FWW SBA. pt wanted to use the toilet for awhile. call light positioned and instructed pt to asked for assistance once done and agreed. informed nurse. Gait Assessment Gait Gait Assistance Required: Standby Assistance,Contact Guard Assist Distance (Feet) 30 Able to Maintain Weight Bearing Status Yes During Gait Assistive Devices Assistive Device Gait Belt,Front Wheeled Walker Orthotic/Prosthetic Devices or Brace: No Gait Deviations General Gait Pattern Ataxic,Decreased Stride Length ,Decreased Feet Clearance,Step -to Gait,Wide Based Gait Factors Limiting Gait Function Factors Limiting Gait Function Decreased Activity Tolerance, Decreased Sensation,Decreased Strength,Poor Balance PT-Balance Assessment Sitting Balance and Reactions Static Sitting Balance Ability Good Dynamic Sitting Balance Ability Good Standing Balance and Reactions Static Standing Balance Ability Fair Dynamic Standing Balance Ability Fair Device Used FWW M5 PT-IP Objective Assessments Start: 11/20/19 14:56 Freq: NEEDED Status: Active Protocol: Document 11/20/19 13:55 AB (Rec: 11/20/19 15:27 AB [id number]) Orientation Orientation/Cognition Level of Alertness Alert Orientation Name,Age,Birthday,Month,Date, Year,Day of Week,Place, Situation Language Function Ability No Deficits Noted Safety Awareness Understands Safety Issues Memory Description No Deficits Noted Gross Range of Motion Lower Extremity ROM Assessment Within Functional Limits Strength Lower Extremity Strength Assessment Bilaterally Impaired Comments Strength Comments R/ L hip flexors: 4-/5 R quads: 4-/5 R hamstrings: 3+/5 L quads: 3+/5 L hamstrings: 4-/5 Coordination Assessment Gross Coordination Gross Coordination WNL Sensation Assessment Sensation Light Touch Impaired Proprioception (Position) Impaired Sensation Description Numbness Comments Sensation Comments numbness on B feet M6 PT-IP Treatment Start: 11/20/19 14:56 Freq: NEEDED Status: Active Protocol: Document 11/20/19 13:55 AB (Rec: 11/20/19 15:27 AB [id number]) Physical Therapy Treatment Education Education Provided Safety M7 PT-IP Assessment and Plan Start: 11/20/19 14:56 Freq: NEEDED Status: Active Protocol: Document 11/20/19 13:55 AB (Rec: 11/20/19 15:27 AB [id number]) PT Summary Assessment and Plan Potential Rehabilitation Potential Good Status of Condition at Evaluation Evolving Summary Impairments Pain,ROM,Strength,Balance, Coordination,Sensation,Tone, Bed Mobility,Transfers,Gait, Activity Tolerance Assessment Summary pt requiring SBA to CGA with mobility using FWW. Will assess use of 4WW and stair training when appropriate. pt stated that neither her spouse or child will be able to assist her. pt will require homehealth services. Goals Bed Mobility Goal Independent Transfer Goal Independent,Front Wheeled Walker,Four Wheeled Walker Gait Goal Independent,Front Wheel Walker ,Four Wheel Walker Gait Distance 100 Other Goals up/down 1 step using 4WW SBA Days to Meet Goals 5 Frequency of Treatment Frequency Of Treatment Once a Day Treatment Plan Physical Therapy Treatment Plan Bed Mobility Training,Transfer Training,Gait Training, Therapeutic Exercise,Balance Retraining,Discharge Planning, Hot or Cold Pack,Neuromuscular Re-ed,Coordination Retraining Recommendations To Nursing Amount of Assist Needed 1 Person Assist Discharge Recommendations PT Discharge Recommendations Home with Assistance,Home Health Equipment Needed for Home Before FWW if not safe with 4WW Discharge Transportation Needs at Discharge Private Vehicle,Wheelchair/ Cabulance
[2019-11-20] MEDS: methylPREDNISolone 1,000 MG in SODIUM CHLORIDE 0.9% 250 ML 258 ML IV (14:59)
[2019-11-20] MEDS: ATORVASTATIN 10 MG TABLET PO (17:24)
[2019-11-20] MEDS: TRAZODONE 50 MG TABLET PO (21:23)
[2019-11-20] MEDS: HYDROCODONE/ACET 5/325 TABLET 1 TAB PO (21:23)
[2019-11-20] MEDS: BACLOFEN 10 MG TABLET PO (21:23)
[2019-11-20] MEDS: TOPIRAMATE 100 MG TABLET PO (21:25)
[2019-11-21] VITALS (9 sets, daily range): BP systolic 132–159; BP diastolic 71–91; PULSE 108–119; RESP 18–24; TEMP 36.1–37.2; O2SAT 95–99
[2019-11-21 05:06] LABS: Add Manual Diff / Slide Review NO; Basophils Absolute Auto 0 /uL (0-100); Basophils Percent Auto 0.2 % (0-2); Eosinophils Absolute Auto 0 /uL (0-450); Eosinophils Percent Auto 0.1 % (2-4); Hematocrit 37.8 % (36-46); Hemoglobin 12.2 g/dL (12.0-16.0); Lymphocytes Absolute Auto 2200 /uL (1100-4500); Mean Corpuscular HGB Conc 32.4 % (30-36); Mean Corpuscular Volume 83.5 fL (80-100); Monocytes Absolute Auto 700 /uL (0-900); Monocytes Percent Auto 5.9 % (3-14); Neutrophils Absolute Auto 9000 /uL (1500-7000); Neutrophils Percent Auto 75.8 % (50-75); Platelet Count 360 X10^3/uL (150-400); Red Blood Cell Count 4.52 X10^6/uL (4.0-5.2); Red Cell Distribution Width 14.6 % (11.6-14.8); White Blood Cell Count 11.9 X10^3/uL (4.5-11.0)
[2019-11-21 05:33] LABS: Alanine Aminotransferase 14 IU/L (<35); Albumin 3.4 g/dL (3.5-5.0); Albumin Globulin Ratio 1.4 (1.0-2.8); Alkaline Phosphatase 41 U/L (38-126); Aspartate Aminotransferase 16 IU/L (14-36); BUN Creatinine Ratio 33.7 (6-22); Bilirubin Total 0.2 mg/dL (0.2-1.3); Blood Urea Nitrogen 29 mg/dL (7-17); Calcium 9.1 mg/dL (8.4-10.2); Carbon Dioxide 28 mmol/L (22-32); Chloride 109 mmol/L (98-107); Estimated Glomerular Filt Rate > 60.0 mL/min (>60); Globulin 2.4 g/dL (1.7-4.1); Glucose 119 mg/dL (70-100); HEMOLYSIS < 15 (0-50); Magnesium 2.2 mg/dL (1.6-2.3); Potassium 4.4 mmol/L (3.4-5.1); Sodium 140 mmol/L (137-145); Total Protein 5.8 g/dL (6.3-8.2)
[2019-11-21] MEDS: HYDROCODONE/ACET 5/325 TABLET 1 TAB PO ×2 (05:39→20:05)
[2019-11-21] MEDS: LEVOTHYROXINE 100 MCG TABLET 200 MCG PO (06:20)
[2019-11-21] MEDS: GABAPENTIN 300 MG CAPSULE PO ×3 (08:37→17:48)
[2019-11-21] MEDS: predniSONE 20 MG TABLET 120 MG PO (08:37)
[2019-11-21] MEDS: LORATADINE 10 MG TABLET PO (08:37)
[2019-11-21] MEDS: LOSARTAN 25 MG TABLET PO (08:37)
[2019-11-21] MEDS: ASPIRIN 325 MG TABLET PO (08:37)
[2019-11-21] MEDS: IBUPROFEN 400 MG TABLET 600 MG PO (08:37)
[2019-11-21] MEDS: SODIUM CHLORIDE 0.9% FLUSH 10 ML IV (08:38)
[2019-11-21] MEDS: SAVELLA 100 MG 100 EACH PO (08:38)
[2019-11-21] MEDS: SUMAtriptan 25 MG TABLET 100 MG PO ×2 (08:41→13:09)
--- NOTE | 2019-11-21 11:36 | PT.IPTN ---
Current Diagnoses Multiple sclerosis (11/18/19) Physical Therapy Treatment Note M2 PT-IP Current Condition Start: 11/20/19 14:56 Freq: NEEDED Status: Active Protocol: Document 11/20/19 13:55 AB (Rec: 11/20/19 15:27 AB [id number]) Physical Therapy Current Condition Current Condition Evaluation Date 11/20/19 Treatment Diagnosis MS exacerbation; difficulty in walking Onset Date 11/18/19 Precautions Other Precautions falls M3 PT-IP Subjective Start: 11/20/19 14:56 Freq: NEEDED Status: Active Protocol: Document 11/21/19 11:11 KS (Rec: 11/21/19 13:29 KS [id number]) Subjective Physical Therapy Visit Type Type Treatment Note Visit Start Time 11:11 Visit Stop Time 11:36 Total Visit Minutes 25 Number of [employer] HOME Visits 1 Physical Therapy Visit Comments Patient Comments agreeable to do PT M4 PT-IP Mobility and Gait Start: 11/20/19 14:56 Freq: NEEDED Status: Active Protocol: Document 11/21/19 11:11 KS (Rec: 11/21/19 13:29 KS [id number]) PT-Bed Mobility Assessment Scooting Scooting to Edge of Bed Standby Assistance PT-Transfer Assessment Sit to and From Stand Sit to and from Stand Standby Assistance,Contact Guard Assistance,Use of Upper Extremities Equipment Transfer Assistive Device Gait Belt,Front Wheeled Walker Transfers Transfer Destination Chair Transfer Technique ambulation using FWW Transfer Ability Level of Assist Standby Assistance,Contact Guard Assistance,Use of Upper Extremities Comments Mobility Comments Pt was in chair upon arrival from therapy. Pt SBA for scooting to EOC and for sit<> stand w/ 4WW. No cues required for brake application. Pt then ambulated ~60 ft in laps around room w/ 4WW. Pt demonstrated good use of 4WW and had good posture. Pt stated she feels more comfortable w. 4WW>FWW. Decreased foot clearance and stride length. Pt returned to chair SBA w/ application of brakes on 4WW and proper technique for slow descent to chair. Reviewed LE strengthening exercises. Pt left in chair w/ all needs in reach and chair alarm on. Gait Assessment Gait Gait Assistance Required: Standby Assistance,Contact Guard Assist Distance (Feet) 60 Able to Maintain Weight Bearing Status Yes During Gait Assistive Devices Assistive Device Gait Belt,Front Wheeled Walker Orthotic/Prosthetic Devices or Brace: No Gait Deviations General Gait Pattern Ataxic,Decreased Stride Length ,Decreased Feet Clearance,Wide Based Gait Factors Limiting Gait Function Factors Limiting Gait Function Decreased Activity Tolerance, Decreased Sensation,Decreased Strength,Poor Balance Comments Gait Comments Please refer to mobility section for details. Stair Climbing Assessment Comments Stair Climbing Comments Pt refused stairs today, stating she is too tired and has a headache. PT-Balance Assessment Sitting Balance and Reactions Static Sitting Balance Ability Good Dynamic Sitting Balance Ability Good Standing Balance and Reactions Static Standing Balance Ability Fair Dynamic Standing Balance Ability Fair Device Used FWW M5 PT-IP Objective Assessments Start: 11/20/19 14:56 Freq: NEEDED Status: Active Protocol: Document 11/20/19 13:55 AB (Rec: 11/20/19 15:27 AB [id number]) Orientation Orientation/Cognition Level of Alertness Alert Orientation Name,Age,Birthday,Month,Date, Year,Day of Week,Place, Situation Language Function Ability No Deficits Noted Safety Awareness Understands Safety Issues Memory Description No Deficits Noted Gross Range of Motion Lower Extremity ROM Assessment Within Functional Limits Strength Lower Extremity Strength Assessment Bilaterally Impaired Comments Strength Comments R/ L hip flexors: 4-/5 R quads: 4-/5 R hamstrings: 3+/5 L quads: 3+/5 L hamstrings: 4-/5 Coordination Assessment Gross Coordination Gross Coordination WNL Sensation Assessment Sensation Light Touch Impaired Proprioception (Position) Impaired Sensation Description Numbness Comments Sensation Comments numbness on B feet M6 PT-IP Treatment Start: 11/20/19 14:56 Freq: NEEDED Status: Active Protocol: Document 11/21/19 11:11 KS (Rec: 11/21/19 13:29 KS [id number]) Physical Therapy Treatment Exercises Exercises Ankle Pumps,Quad Sets Education Education Provided Safety M7 PT-IP Assessment and Plan Start: 11/20/19 14:56 Freq: NEEDED Status: Active Protocol: Document 11/21/19 11:11 KS (Rec: 11/21/19 13:29 KS [id number]) PT Summary Assessment and Plan Potential Rehabilitation Potential Good Status of Condition at Evaluation Evolving Summary Impairments Pain,ROM,Strength,Balance, Coordination,Sensation,Tone, Bed Mobility,Transfers,Gait, Activity Tolerance Assessment Summary Pt SBA for mobility and SBA to CGA for ambulation w/ 4WW. Pt able to tolerate ~60 ft ambulation w/ 4WW. Pt has decreased stride and step length, but demonstrated goos use of 4WW w/o cues for proper use or brake application. Pt reported she has a 4WW at home and a w/c for bad days. Pt refused stair today d/t fatigue and headache. She will benefit from HH. Goals Bed Mobility Goal Independent Transfer Goal Independent,Front Wheeled Walker,Four Wheeled Walker Gait Goal Independent,Front Wheel Walker ,Four Wheel Walker Gait Distance 100 Other Goals up/down 1 step using 4WW SBA Days to Meet Goals 5 Frequency of Treatment Frequency Of Treatment Once a Day Treatment Plan Physical Therapy Treatment Plan Bed Mobility Training,Transfer Training,Gait Training, Therapeutic Exercise,Balance Retraining,Discharge Planning, Hot or Cold Pack,Neuromuscular Re-ed,Coordination Retraining Recommendations To Nursing Amount of Assist Needed 1 Person Assist Discharge Recommendations PT Discharge Recommendations Home with Assistance,Home Health Transportation Needs at Discharge Private Vehicle,Wheelchair/ Cabulance
--- NOTE | 2019-11-21 11:47 | CM.DPC ---
Addendum entered by Myra Vega LPN 11/21/19 14:08: Has lengthy discussion with pt via phone as she is wishing to limit her contacts due to COVID precautions and her compromise immune system. She stated that Dr. Kruse had just talked with her and told her she was stable for a d/c to home today. [facility] with [facility] re [facility] and other pertinent issues. Pt stated she wished to talk through the details for a d/c today as I wasn't quite mentally ready. She expressed great relief that she could stay until her got off work today (he is COVID officer at [employer]) and that her and 15 year old daughter could stop by to picker/puller her lessons and tech support for her schooling. Pt said her 15 year old would come up to her room for the d/c instructions since only one person was allowed into the hospital to see her. She would then go home with her family and followup as outlined by Dr. Kruse in his instructions. No other d/c needs were expressed or noted. Pt said she was looking forward to getting home and getting back to managing her family and her usual routines. Assured her that the later d/c time and reasons for it would be relayed to the RN Coordinator Kathrine and her nurse Jamey/magali. Original Note: DCP: continued: Case received, EMR reviewed. Dr. Kruse noted in Team Rounds that he was still trying to contact neurology to see if specialized MRI was needed. If so, pt would need to transfer for this procedure. Otherwise, he expected to d/c pt to home on steroid taper. Noted that aside from the MS flare pt also has type I diabetes and is on an insulin pump. Dr. Kruse noted she had a zoom meeting with her care team in the outpt setting and received recommendations of management of her diabetes while on the steroids. Will be following.
--- NOTE | 2019-11-21 13:40 | P.DS_ITS ---
History of Present Illness History of Present Illness Date Patient Seen: 11/21/19 Time Patient Seen: 13:40 Chief complaint: glf on Sat, I have MS, feels like allergic reactio Narrative: As per GILSON Boogie: Harish Silvestre is a 44-year-old female with multiple medical problems the worst being multiple sclerosis and diabetes type 1 in sees a neurologist at the [facility]. Patient was working with her at home to sort through boxes in storage and apparently after spending about 9 hours doing this she got very exhausted. She actually stated that she collapsed and her daughter caught her keeping her from hitting her head and landed in a sitting position. She does describe that she she looked at her self in the mirror and noticed that she had right eye droop. She has actually gained about 50-60 lb started around May during the shut down, reports a normal weight of 150-160 lb, initially noticed swelling in her face, abdomen and legs. She states that as of recent she had some unusual neurological sensations in her arms the worst and pointing to her left arm stating that it felt like she was having pins and needles that extended from her mid medial forearm down to her wrist and then radiating back up into her underarm. She did show me a picture of her face and at that time her right eye appeared to be closed more than the left. She did not have any visual changes associated with that. She denies fevers sweats or chills, she does have TMJ that was corrected with ortho at on treat however she states that her teeth or shifting again, she denies chest pain, palpitations, shortness of breath, nausea or vomiting, dysuria, diarrhea, or constipation. She does state that she is immune compromised and is on immunotherapy which makes her is susceptible to infections In the emergency department they did a head CT which was negative. The patient was requested to undergo a CT MRA however she has a iodine contrast allergy and this was not done. The emergency department provider spoke to Dr. Helton, on- call neurologist at the [facility] to obtain further guidance and pos sible transfer, she was recommended to stay here and received a 3 day course of methylprednisolone 1000 mg IV daily. They stated that if she needed an MRI that they would rather have her come to the [facility] to have this done. She is afebrile, blood pressure is 146/75, heart rate 105, respiratory rate 19, oxygen saturation of 97% on room air she weighs 100 kg with a BMI of 40.2. CBC and basic chemistries are all within normal limits with exception of her glucose which was not 199 on admission and she is COVID-19 negative. Discharge Providers Provider Date of admission: 11/18/19 15:53 Discharge Date: 11/21/19 Primary care physician: Cedric Noel DO Consults: 11/18/19 17:22 Consult to Pastoral Services Routine Comment: patient would like a visit 11/20/19 09:35 Consult to Physical Therapy Evaluate & Treat Comment: MS flare Physician Instructions: Evaluate and Treat Discharge provider: Pritesh Kruse DO Summary Hospital Course Discharge Diagnosis: Please see hospital course by problem list noted below. Hospital Course: Josie Silvestre is a 44-year-old female with a past medical history of multiple sclerosis, fibromyalgia, hypertension, diabetes, obesity who presented to the emergency room after a fall. She was admitted with a possible flare of MS after discussion with neurology at the [facility]. She received 1g of methylprednisolone x3 days. Patient reported improved symptoms after this course. She will discharge on a steroid taper with plans to follow- up outpatient with the MS Clinic who will attempt to arrange an MRI. 1. Multiple sclerosis flare, acute on chronic, present on admission -patient received methylprednisolone 1 g daily for 3 days. Will discharge on a steroid taper -Cardiac telemetry revealed continued sinus tachycardia but no acute events. -Continue home dose of Milnacipran (Savella) 100 mg po bid, will need to bring from home -Continue home doses of baclofen 10 mg po tid prn, gabapenin 300 mg po tid, topiramate 100 mg po daily -patient was seen by physical therapy who recommended home with assistance. -consultation obtained with Neurology at the as discussed above. Recommended outpatient MRI which the MS clinic there will reach out to the patient to coordinate. 2. Diabetes type 1.5, on an insulin pump -A1c on admission indicated good control at 5.7. Her home oral medications were held and she was managed with her own closed-loop insulin pump with very good success given her high doses of prednisone. 3. Hypothyroidism, chronic -Continue home dose of levothyroxine 200 mcg daily 4. Asthma -Continue albuterol inhaler 5. Morbid obesity, BMI 40.8, acute, present on admission - patient is at increased risk of complications due to obesity, steroid use, and her diabetes. 6. CARA, chronic - patient attempted to use hospital machine but was unable to tolerate it during her stay for more than a few hours at a time. Time Spent with Patient Time spent: Greater than 30 minutes Exam Vital Signs (past 8 hours): - 11/21/19 08:00 11/21/19 08:15 11/21/19 12:00 Temperature 98.6 F 97.9 F Pulse Rate 113 H 108 H Respiratory Rate 24 22 Blood Pressure 132/71 159/89 H Pulse Oximetry 95 95 99 Oxygen Delivery Method Room Air Oxygen Flow Rate 0 Narrative Exam Narrative: Gen: Obese Alert, oriented, well-developed 44 y.o. female, NAD HEENT: normocephalic, atraumatic, conjunctiva clear, sclera non-icteric, oral mu cosa pink and moist. Neck: supple, full ROM, no JVD, trachea is midline Resp: Lungs CTA, non-labored breathing CV: RRR, no murmur or rubs Abd: soft, non-tender, normoactive BTs Skin: no lesions or rashes, dry and intact Neuro: Alert and oriented X 4 w/no focal deficits. Improved tenderness in upper and lower extremities bilaterally. Speech clear and coherent. Extremities: moves all 4 extremities, is ambulatory with walker. Psyche: normal mood and affect. Objective Labs Result Diagrams: 11/21/19 04:43 11/21/19 04:43 Labs: Laboratory Results - last 24 hr 11/21/19 11/21/19 04:43 04:43 WBC 11.9 H RBC 4.52 Hgb 12.2 Hct 37.8 MCV 83.5 MCH 27.0 MCHC 32.4 RDW 14.6 Plt Count 360 Neut % (Auto) 75.8 H Lymph % (Auto) 18.0 L Cobb % (Auto) 5.9 Eos % (Auto) 0.1 L Baso % (Auto) 0.2 Neut # (Auto) 9000 H Lymph # (Auto) 2200 Cobb # (Auto) 700 Eos # (Auto) 0 Baso # (Auto) 0 Sodium 140 Potassium 4.4 Chloride 109 H Carbon Dioxide 28 BUN 29 H Creatinine 0.86 Estimated GFR > 60.0 BUN/Creatinine Ratio 33.7 H Glucose 119 H Calcium 9.1 Magnesium 2.2 Total Bilirubin 0.2 Conjugated Bilirubin 0.0 Unconjugated Bilirubin 0.0 AST 16 ALT 14 Alkaline Phosphatase 41 Total Protein 5.8 L Albumin 3.4 L Globulin 2.4 Albumin/Globulin Ratio 1.4 Discharge Plan Discharge Plan Patient Disposition: Home Discharge comment: You were admitted to the hospital with a flare of multiple sclerosis. You were given 3 days of very high dose steroids and started to improve. Please coordinate with your MS clinic regarding obtaining an MRI and future follow up. Discharge orders & Medications Prescriptions: New prednisone 20 mg tablet See Rx Instructions .ROUTE .COMPLEX Qty: 17 RF: 0 oxycodone 5 mg tablet 5 mg PO Q4H PRN (Reason: pain) 7 Days Qty: 30 RF: 0 Continued atorvastatin 10 mg tablet 1 tab PO QPM RF: 0 baclofen 10 mg tablet 1 - 2 tab PO TID PRN (Reason: Pain (Scale Score 1-3)) RF: 0 diazepam 10 mg tablet 1 tab PO Q8H PRN (Reason: Spasms) RF: 0 fluconazole 100 mg tablet 1 tab PO PRN PRN (Reason: Rash) RF: 0 meclizine 12.5 mg tablet 12.5 mg PO PRN PRN (Reason: Vertigo) RF: 0 gabapentin 300 mg capsule 300 mg PO QID RF: 0 levothyroxine 200 mcg tablet 200 mcg PO DAILY RF: 0 topiramate 100 mg tablet 100 mg PO DAILY RF: 0 eletriptan 40 mg tablet 1 tab PO PRN PRN (Reason: Migraine Headache) RF: 0 triamcinolone acetonide 0.1 % cream See Rx Instructions .ROUTE .COMPLEX RF: 0 zolpidem 5 mg tablet 5 mg PO BEDTIME PRN (Reason: Insomnia) RF: 0 promethazine 12.5 mg tablet 25 mg PO Q6H PRN (Reason: Nausea And Vomiting) RF: 0 insulin aspart U-100 100 unit/mL (3 mL) insulin pen See Rx Instructions .ROUTE .COMPLEX RF: 0 milnacipran 100 mg tablet 100 mg PO BID RF: 0 albuterol sulfate 90 mcg/actuation HFA aerosol inhaler 2 puff INHALATION Q4-6H PRN (Reason: shortness of breath or wheezing) Qty: 8.5 RF: 0 aspirin 325 mg Tablet 325 mg PO DAILY RF: 0 losartan 25 mg Tablet 25 mg PO DAILY RF: 0 levocetirizine 5 mg Tablet 5 mg PO DAILY RF: 0 pioglitazone [Actos] 15 mg Tablet 15 mg PO DAILY RF: 0 ibuprofen 800 mg tablet 600 mg PO Q8H PRN (Reason: pain) RF: 0 trazodone 50 mg Tablet 50 mg PO BEDTIME RF: 0 potassium chloride 10 mEq Tablet Extended Release 30 meq PO DAILY RF: 0 Discontinued hydrocodone-acetaminophen 5-325 mg tablet 1 - 2 tab PO Q6H PRN (Reason: pain) RF: 0 hydrocodone-ibuprofen 5-200 mg tablet 1 tab PO Q4-6H PRN (Reason: acute kidney stone pain) Qty: 5 RF: 0 Follow up/Referrals: Cedric Noel DO [Primary Care Provider] - Discharge Data Primary Care Provider: Cedric Noel Quality VTE Deep Vein Thrombosis/Pulmonary Embolism Present on Admission: No
[2019-11-21] MEDS: ACETAMINOPHEN 325 MG TABLET 650 MG PO (17:47)
[2019-11-21] MEDS: ATORVASTATIN 10 MG TABLET PO (17:48)
--- NOTE | 2019-11-21 19:14 | CM.SWNOTE ---
PACKING ROOM WORKER note PACKING ROOM WORKER consult requested for patient by Dr. Kruse. Patient is a 44 y/o female with diagnosis of MS for past 16 years who is in ED due to a flare up of MS symptoms. Dr. Kruse calls ED PACKING ROOM WORKER to discuss HH with patient and start process of setting up HH, and informs PACKING ROOM WORKER of plan to d/c patient to home today. PACKING ROOM WORKER brings [id number] form to Dr. Kruse for signature and Dr. Kruse completes form. Dr. Kruse places order for HH. PACKING ROOM WORKER then enters patient room, introduces self and role, and discusses HH. Patient explains she is seeking additional support in medication, PT. PACKING ROOM WORKER explains process of getting set up with HH and some of the services offered. Patient states she has a preference for working with [facility] due to proximity of offices to her home in [place]. PACKING ROOM WORKER explained that PACKING ROOM WORKER would attempt to get a hold of [facility] tonight to submit referral, but that it would be submitted following morning if PACKING ROOM WORKER unable to get a hold of [employer] due to time of day (after 5pm). PACKING ROOM WORKER exits room and calls [facility] and leaves requesting call back at [phone] if in am on 11/21 or [phone] if same evening. Patient informs PACKING ROOM WORKER that she does have support at home with her and daughter and indicates understanding of plan for d/c to home today. Pl: Patient to be d/c'ed to home, and PACKING ROOM WORKER will leave packet on the desk of on shift for following day for setting up HH. RAÚL Silva
[2019-11-21] MEDS: diazePAM 5 MG TABLET 10 MG PO (20:05)
[2019-11-21] MEDS: BACLOFEN 10 MG TABLET PO (20:05)
--- NOTE | 2019-11-21 20:32 | PC.NURSE ---
1999- Patient discharged to home. Instruction given to patient and . IV removed and Tele removed. Patient stable at the time of discharge.
--- NOTE | 2019-11-22 08:43 | CM.DPNOTE ---
DCPlanning: post d/c note: Followed up on note from ER social media executive Nehemiah from last evening re need for Home Health RN/PT and with [facility] as agency choice. Have now spoken with [facility] who noted they could accept the referral but no availability until Saturday 11/25. Checked in with [facility]. Lorena confirmed earliest would be Monday. Called pt on only number listed, her cell: [phone]. Left a vm re above and have now faxed the full referral to [facility] including face sheet, H&P, DC summary, Face/Face document completed by Dr Kruse and RAÚL Cerna last evening, specific HH RN/PT orders and COVID-19 negative test (11/17 at 1010). Left [facility] office contact # in case pt had questions. Will update Dr. Kruse today as he is on as hospitalist today.
== END 2019-11-21 20:15 | disposition home or self-care (01) | DRG 59 ==
LOC: ED 15:25 → ICU 11-19 07:49
PROVIDERS: Internal Medicine; Nurse Practitioner Family; Admitting Provider Internal Medicine; Emergency Provider Emergency Medicine; Family Provider Family Medicine; PCP Family Medicine; Referring Provider Emergency Medicine; Visit Provider Internal Medicine
DX: G35 Multiple sclerosis (principal); Z68.41 Body mass index [BMI] 40.0-44.9, adult; E10.9 Type 1 diabetes mellitus without complications; M53.3 Sacrococcygeal disorders, not elsewhere classified; E66.01 Morbid (severe) obesity due to excess calories; E03.9 Hypothyroidism, unspecified; E78.5 Hyperlipidemia, unspecified; G47.33 Obstructive sleep apnea (adult) (pediatric); M79.7 Fibromyalgia; J45.909 Unspecified asthma, uncomplicated; Z96.41 Presence of insulin pump (external) (internal); W18.30XA Fall on same level, unspecified, initial encounter
CPT/HCPCS: 36415; 70450; 71045; 72220; 80048; 80053; 80076; 81001; 81003; 82962; 83036; 83605; 83735; 83880; 84145; 85025; 87040; 87070; 87635; 87797; 87880; 94760; 94762; 96365; 96366; 97116; 97162; 97530; 99284; A9270; J2405; J2930

== ENCOUNTER → 2019-12-24 15:33 | Outpatient (CLI) | payer MEDICARE, OTHER, SELFPAY ==
[2019-11-18 16:53] VITALS: BMI 40.2
--- NOTE | 2019-12-24 | DI.MRI.S_ITS ---
PROCEDURE: MR CERVICAL SPINE WO/W CON INDICATIONS: Multiple sclerosis TECHNIQUE: Noncontrast sagittal T1 spin echo and T2 fast spin echo, sagittal STIR, sagittal PD fast spin echo, foraminal oblique sagittal T2 fast spin echo, axial gradient echo or T2 fast spin echo through the cervical spine. After the administration of contrast, sagittal and axial T1 spin echo with fat saturation through the cervical spine. COMPARISON: [facility], MR, MR HEAD/BRAIN WO/W CON, 12/24/2019, 15:59. [facility], MR, MR CERVICAL SPINE WITH/WITHOUT CONTRAST, 01/27/2017, 9:48. FINDINGS: Image quality: This examination is limited by involuntary motion artifact. Alignment and curvature: There is straightening of the normal cervical lordosis. No focal AP alignment abnormality is seen. Marrow: Marrow demonstrates normal overall signal. Spinal cord: A few foci of increased T2 weighted hyperintensity can be seen, which are demonstrated at the C2-C3 level on the right, as on series 7, image 10 and on series 5, image 15 and within the C4 level on the left, as on series 7, image 9 and on series 5, image 20. There is a faintly seen T2 hyperintense focus also seen at C5-C6. When compared to 2017, these foci are not progressed. No new lesions are seen. Visualized spinal cord is normal in size. No cerebellar tonsillar herniation. Paraspinous soft tissues: No paravertebral masses or suspicious enhancement. Minimal, stable cervical spine degenerative changes are seen. IMPRESSION: Stable white matter lesions are seen, without enhancement, which are consistent with the given clinical history of multiple sclerosis. No new white matter lesions are seen. Dictated by: Tim Rodriguez M.D. on 12/24/2019 at 16:55 Approved by: Tim Rodriguez M.D. on 12/24/2019 at 16:58
--- NOTE | 2019-12-24 | DI.MRI.S_ITS ---
PROCEDURE: MR HEAD/BRAIN WO/W CON INDICATIONS: Multiple sclerosis TECHNIQUE: Noncontrast sagittal and axial FLAIR, axial and coronal T2 fast spin echo, axial VIBE, axial gradient echo, axial diffusion and ADC through the brain. After the administration of contrast, axial and coronal VIBE with fat saturation through the brain. COMPARISON: [facility], MR, MR BRAIN WITH/WITHOUT CONTRAST, 01/27/2017, 9:48. [facility], MR, MR CERVICAL SPINE WO/W CON, 12/24/2019, 16:23. FINDINGS: Image quality: This examination is limited by involuntary motion artifact. CSF spaces: Ventricles are normal in size and shape. Basal cisterns are patent. No extra-axial fluid collections. Brain: Minimal T2 hyperintense white matter foci are seen within the periventricular and deep white matter, which are similar to the 2017 examination. No definite progression can be seen. There is no involvement of the corpus callosum. These foci do not enhance. No intracranial bleeds or mass effects. Davidson-white matter interface appears intact. No abnormal intracranial enhancement. Diffusion weighted images show no acute ischemic insults. Brainstem appears normal. Normal intravascular flow voids are present. Skull and face: Calvarial marrow signal is normal. Orbits appear normal. Sinuses: Sinuses and mastoids are clear. IMPRESSION: Minimal T2 hyperintense foci are seen, which are similar to 2017. These are nonspecific. Differential diagnosis includes a mild, stable demyelinating process, early chronic small vessel ischemic change, vasculitis, and sequelae of migraine headaches. No abnormal enhancement is seen. Dictated by: Tim Rodriguez M.D. on 12/24/2019 at 16:52 Approved by: Tim Rodriguez M.D. on 12/24/2019 at 16:55
== END ==
PROVIDERS: Family Provider Family Medicine; PCP Family Medicine; Referring Provider Physical Medicine & Rehabilitation; Visit Provider Physical Medicine & Rehabilitation
DX: G35 Multiple sclerosis (principal)
CPT/HCPCS: 70553; 72156; A9579

== ENCOUNTER 2020-04-13 17:52 | Emergency (ER) | payer MEDICARE, OTHER, SELFPAY ==
[2020-03-20 10:23] VITALS: BMI 40.2
[2020-04-13] VITALS (12 sets, daily range): BP systolic 138–172; BP diastolic 67–82; PULSE 104–115; RESP 17–25; TEMP 37.1; O2SAT 95–97
[2020-04-13] MEDS: SODIUM CHLORIDE 0.9% 1,000 ML 1000 ML IV (18:40)
[2020-04-13 19:01] LABS: Add Manual Diff / Slide Review NO; Basophils Absolute Auto 100 /uL (0-100); Eosinophils Absolute Auto 200 /uL (0-450); Eosinophils Percent Auto 1.6 % (2-4); Hematocrit 43.3 % (36-46); Hemoglobin 13.9 g/dL (12.0-16.0); Lymphocytes Absolute Auto 4700 /uL (1100-4500); Lymphocytes Percent Auto 34.3 % (25-40); Mean Corpuscular HGB Conc 32.1 % (30-36); Mean Corpuscular Hemoglobin 26.7 PG (26-34); Mean Corpuscular Volume 83.2 fL (80-100); Monocytes Absolute Auto 700 /uL (0-900); Monocytes Percent Auto 5.1 % (3-14); Neutrophils Absolute Auto 7900 /uL (1500-7000); Platelet Count 378 X10^3/uL (150-400); Red Blood Cell Count 5.21 X10^6/uL (4.0-5.2); Red Cell Distribution Width 14.9 % (11.6-14.8); White Blood Cell Count 13.6 X10^3/uL (4.5-11.0)
[2020-04-13 19:04] LABS: Pregnancy Test Urine Negative (Negative)
[2020-04-13 19:12] LABS: Lactate (Lactic Acid) 1.6 mmol/L (0.7-2.1)
[2020-04-13 19:13] LABS: Alanine Aminotransferase 21 IU/L (<35); Albumin 4.2 g/dL (3.5-5.0); Albumin Globulin Ratio 1.5 (1.0-2.8); Alkaline Phosphatase 60 U/L (38-126); Aspartate Aminotransferase 23 IU/L (14-36); BUN Creatinine Ratio 14.8 (6-22); Bilirubin Total 0.1 mg/dL (0.2-1.3); Blood Urea Nitrogen 13 mg/dL (7-17); Calcium 9.3 mg/dL (8.4-10.2); Carbon Dioxide 30 mmol/L (22-32); Chloride 104 mmol/L (98-107); Estimated Glomerular Filt Rate > 60.0 mL/min (>60); Globulin 2.8 g/dL (1.7-4.1); Glucose 145 mg/dL (70-100); HEMOLYSIS < 15 (0-50); Lipase 22 U/L (23-300); Potassium 3.2 mmol/L (3.4-5.1); Sodium 139 mmol/L (137-145)
[2020-04-13 19:16] LABS: Prothrombin Time 11.4 SECONDS (10.1-12.7)
[2020-04-13 19:19] LABS: PTT Partial Thromboplastin Tim 34 SECONDS (26.4-36.2)
[2020-04-13 19:49] LABS: Procalcitonin 0.05 ng/mL (<0.5)
--- NOTE | 2020-04-13 20:54 | ED_ITS ---
HPI - Skin/Abscess/Foreign Bdy General Chief complaint: Skin/Abscess/Foreign Body Stated complaint: RIGHT SIDE OF FACE SWELLING PAIN LOWER RIGHT SIDE Time Seen by Provider: 04/13/20 20:54 Source: patient and family Limitations: no limitations History of Present Illness HPI narrative: This is a 44-year-old female comes emergency department with complaint of right-sided facial, she also has pain which she describes as sort of dental in origin radiating across her face and towards her ear. Patient denies any fevers but has had some decent of chills. Patient states she has noted that her sugars have been more radically and trending to the higher and on her monitor. She has not had active vomiting but has had nausea. Denies chest pain or pressure. She denies cold cough or congestive symptoms. She has had some abdominal pain that she describes as across her upper abdomen. Denies radiation to the back. Patient denies dysuria urgency but has had some frequency. She states she had some diarrhea like stools recently. She has a history of IBS and states that she will intermittently have loose stools. She has not noticed any black or bloody stools. She has not noticed any other skin changes. Patient states in the past she has taking clindamycin for oral/dental infections with improvement of her symptoms. She of multiple sclerosis, fibromyalgia and diabetes type 1 and follows with [facility]. Related Data Home Medications Medication Instructions Recorded Confirmed atorvastatin 1 tab PO QPM 02/07/18 11/18/19 baclofen 1 - 2 tab PO TID PRN 02/07/18 11/18/19 diazepam 1 tab PO Q8H PRN 02/07/18 11/18/19 eletriptan 1 tab PO PRN PRN 02/07/18 11/18/19 fluconazole 1 tab PO PRN PRN 02/07/18 11/18/19 gabapentin 300 mg PO QID 02/07/18 11/18/19 levothyroxine 200 mcg PO DAILY 02/07/18 11/18/19 meclizine 12.5 mg PO PRN PRN 02/07/18 11/18/19 topiramate 100 mg PO DAILY 02/07/18 11/18/19 triamcinolone acetonide See Rx Instructions .ROUTE .COMPLEX 02/07/18 11/18/19 zolpidem 5 mg PO BEDTIME PRN 02/07/18 11/18/19 insulin aspart U-100 See Rx Instructions .ROUTE .COMPLEX 08/20/18 11/18/19 milnacipran 100 mg PO BID 08/20/18 11/18/19 promethazine 25 mg PO Q6H PRN 08/20/18 11/18/19 aspirin 325 mg PO DAILY 08/13/19 11/18/19 levocetirizine 5 mg PO DAILY 08/13/19 11/18/19 losartan 25 mg PO DAILY 08/13/19 11/18/19 pioglitazone [Actos] 15 mg PO DAILY 08/13/19 11/18/19 ibuprofen 600 mg PO Q8H PRN 08/14/19 11/18/19 trazodone 50 mg PO BEDTIME 08/14/19 11/18/19 potassium chloride 30 meq PO DAILY 11/18/19 11/18/19 Previous Rx's Medication Instructions Recorded albuterol sulfate 2 puff INHALATION Q4-6H PRN #8.5 08/03/19 gram prednisone See Rx Instructions .ROUTE 11/21/19 .COMPLEX #17 tab clindamycin HCl 300 mg PO Q6H #40 cap 04/13/20 fluconazole [Diflucan] 150 mg PO Q3D #2 tab 04/13/20 ondansetron HCl [Zofran] 4 mg PO Q6H PRN #10 tab 04/13/20 Allergies Allergy/AdvReac Type Severity Reaction Status Date / Time codeine Allergy Severe Rash Verified 04/13/20 18:10 lovastatin [From Advicor] Allergy Severe Anaphylaxis Verified 04/13/20 18:10 niacin [From Advicor] Allergy Severe Anaphylaxis Verified 04/13/20 18:10 pseudoephedrine Allergy Severe Anaphylaxis Verified 04/13/20 18:10 red (food color) Allergy Severe Anaphylaxis Verified 04/13/20 18:10 Penicillins Allergy Intermediate Rash Verified 04/13/20 18:10 mushroom Allergy Unknown Verified 04/13/20 18:10 ampicillin Allergy Rash Verified 04/13/20 18:10 erythromycin base Allergy Verified 04/13/20 18:10 glatiramer (copolymer 1) Allergy Verified 04/13/20 18:10 interferon beta-1a Allergy itching Verified 04/13/20 18:10 and rash Iodinated Contrast Media Allergy Verified 04/13/20 18:10 lisinopril Allergy Kidneys Verified 04/13/20 18:10 shut down metformin Allergy Gastrointestinal Verified 04/13/20 18:10 Upset Sulfa (Sulfonamide Allergy Verified 04/13/20 18:10 Antibiotics) artificial sweetners Allergy Uncoded 04/13/20 18:10 barium Allergy Uncoded 04/13/20 18:10 Review of Systems Review of Systems ROS Unobtainable: All systems reviewed & are unremarkable except as noted in HPI and below Patient History Medical History Chronically low serum potassium Diabetes Diabetic gastroparesis Dislocation of left patella Fatigue Fibromyalgia History of shingles Hyperlipidemia Hypothyroidism Low vitamin D level Multiple sclerosis Obstructive sleep apnea syndrome Osteoarthritis PCOS (polycystic ovarian syndrome) Raynauds disease Type 2 diabetes mellitus Surgical History History of repair of anterior cruciate ligament of right knee Hx of cholecystectomy Family History Family/Other Loud snoring Sleep apnea Depression Dementia Father Loud snoring Sleep apnea Insomnia Restless legs syndrome Obesity Hypertension Heart disease Depression Bipolar disorder Mother Insomnia Hypertension Heart disease Depression Anxiety Family/Other Loud snoring Obesity Hypertension Depression Anxiety Social History marital status: household members: spouse and children Smoking Status: Never smoker alcohol intake: current Smoking Status: Never smoker alcohol intake frequency: a few times a month Substance Use Type: does not use Exam Narrative Exam Narrative: GEN: well nourished, well appearing female, alert and oriented x 3, patient appears to be in mild distress. HEENT: Atraumatic, pupils are equal round reactive to light, extraocular movements are intact, nares are clear, TMs are clear with no fluid, there is no conjunctival pallor. Throat is clear without any exudates, erythema, tonsillar enlargement or uvular deviation, patient has some swelling of right side, no erythema or or fluctuence appreciated. HEART: Regular rate and rhythm without murmur, clicks, rubs. No carotid bruits, pulses are equal in upper and lower extremities LUNGS:Lungs clear to auscultation, no wheezes, rales, crackles, chest moves symmetrically ABD:bowel sounds normal, soft, mild generalized abdominal tenderness, no guardi ng, rebound, rigidity, no masses noted, no hepatosplenomegaly :No CVA tenderness MSCL: Non-tender, no muscle atrophy, muscles strength 5/5 upper and lower extremities, full range of motion, normal gait NEURO:CN 2-12 intact, sensation normal SKIN: See above. Initial Vital Signs Initial Vital Signs: Vital Signs Temperature 98.7 F 04/13/20 18:06 Pulse Rate 115 H 04/13/20 18:06 Respiratory Rate 18 04/13/20 18:06 Blood Pressure 172/82 H 04/13/20 18:06 Pulse Oximetry 97 04/13/20 18:06 Course Orders Ordered: ED Orders 04/13/20 18:45 Test Urine Stat 04/13/20 18:50 Complete Blood Count AUTO DIFF Stat Comprehensive Metabolic Panel Stat Lactate (Lactic Acid) Stat Lipase Stat Partial Thromboplastin Time Stat Procalcitonin Stat Prothrombin Time INR Stat 04/13/20 20:22 Blood Culture Stat 04/13/20 21:32 XR abdomen min 2V Stat Discontinued Medications Clindamycin HCl (Clindamycin 150 Mg Capsule) 300 mg PO NOW ONE Stop: 04/13/20 22:02 Last Admin: 04/13/20 22:05 Dose: 300 mg Documented by: REBECA Sodium Chloride (Normal Saline 0.9%) 1,000 mls @ 1,000 mls/hr IV BOLUS ONE Stop: 04/13/20 19:35 Last Infusion: 04/13/20 20:15 Dose: 0 mls/hr Documented by: Admin: 04/13/20 18:40 Dose: 1,000 mls/hr Documented by: YA Ketorolac Tromethamine (Ketorolac 60 Mg/2 Ml Vial) 15 mg IV NOW ONE Stop: 04/13/20 21:11 Last Admin: 04/13/20 21:13 Dose: Not Given Documented by: BRY Ketorolac Tromethamine (Ketorolac 60 Mg/2 Ml Vial) 15 mg IV NOW ONE Stop: 04/13/20 21:33 Last Admin: 04/13/20 21:39 Dose: 15 mg Documented by: REBECA Ondansetron HCl (Ondansetron 4 Mg/2 Ml Inj) 4 mg IV NOW ONE Stop: 04/13/20 21:33 Last Admin: 04/13/20 21:38 Dose: 4 mg Documented by: REBECA Vital Signs Vital signs: Vital Signs - 8 hr 04/13/20 18:40 04/13/20 19:00 04/13/20 19:25 Temperature Pulse Rate 110 H 108 H 111 H Respiratory Rate 18 21 Blood Pressure 138/82 153/80 H Pulse Oximetry 97 96 96 04/13/20 19:30 04/13/20 20:00 04/13/20 20:30 Temperature Pulse Rate 109 H 107 H 109 H Respiratory Rate 19 17 20 Blood Pressure 148/71 H 145/81 H 143/67 H Pulse Oximetry 97 96 96 04/13/20 21:00 04/13/20 21:30 04/13/20 21:55 Temperature Pulse Rate 110 H 107 H 104 H Respiratory Rate 25 H 25 H 19 Blood Pressure 150/74 H 155/74 H 146/75 H Pulse Oximetry 96 96 96 04/13/20 22:00 04/13/20 22:23 Temperature 98.8 F Pulse Rate 105 H Respiratory Rate 19 Blood Pressure 148/74 H Pulse Oximetry 95 MDM - Skin/Abscess/Foreign Bdy Lab Data Attestation: I reviewed the patient's lab results. Result diagrams: 04/13/20 18:50 04/13/20 18:50 Labs: Lab Results 04/13/20 04/13/20 04/13/20 Range/Units 18:45 18:50 18:50 WBC 13.6 H (4.5-11.0) X10^3/uL RBC 5.21 H (4.0-5.2) X10^6/uL Hgb 13.9 (12.0-16.0) g/dL Hct 43.3 (36-46) % MCV 83.2 (80-100) fL MCH 26.7 (26-34) PG MCHC 32.1 (30-36) % RDW 14.9 H (11.6-14.8) % Plt Count 378 (150-400) X10^3/uL Neut % (Auto) 58.0 (50-75) % Lymph % (Auto) 34.3 (25-40) % Bowman % (Auto) 5.1 (3-14) % Eos % (Auto) 1.6 L (2-4) % Baso % (Auto) 1.0 (0-2) % Neut # (Auto) 7900 H (6977-2268) /uL Lymph # (Auto) 4700 H (2470-6884) /uL Bowman # (Auto) 700 (0-900) /uL Eos # (Auto) 200 (0-450) /uL Baso # (Auto) 100 (0-100) /uL PT 11.4 (10.1-12.7) SECONDS INR 1.0 (0.9-1.3) APTT 34 (26.4-36.2) SECONDS Sodium (137-145) mmol/L Potassium (3.4-5.1) mmol/L Chloride (98-107) mmol/L Carbon Dioxide (22-32) mmol/L BUN (7-17) mg/dL Creatinine (0.52-1.04) mg/dL Estimated GFR (>60) mL/min BUN/Creatinine Ratio (6-22) Glucose (70-100) mg/dL Lactate (0.7-2.1) mmol/L Calcium (8.4-10.2) mg/dL Total Bilirubin (0.2-1.3) mg/dL AST (14-36) IU/L ALT (<35) IU/L Alkaline Phosphatase (38-126) U/L Total Protein (6.3-8.2) g/dL Albumin (3.5-5.0) g/dL Globulin (1.7-4.1) g/dL Albumin/Globulin Ratio (1.0-2.8) Lipase (23-300) U/L Procalcitonin (<0.5) ng/mL Urine Test Negative (Negative) 04/13/20 04/13/20 04/13/20 Range/Units 18:50 18:50 18:50 WBC (4.5-11.0) X10^3/uL RBC (4.0-5.2) X10^6/uL Hgb (12.0-16.0) g/dL Hct (36-46) % MCV (80-100) fL MCH (26-34) PG MCHC (30-36) % RDW (11.6-14.8) % Plt Count (150-400) X10^3/uL Neut % (Auto) (50-75) % Lymph % (Auto) (25-40) % Bowman % (Auto) (3-14) % Eos % (Auto) (2-4) % Baso % (Auto) (0-2) % Neut # (Auto) (0701-7188) /uL Lymph # (Auto) (8564-6478) /uL Bowman # (Auto) (0-900) /uL Eos # (Auto) (0-450) /uL Baso # (Auto) (0-100) /uL PT (10.1-12.7) SECONDS INR (0.9-1.3) APTT (26.4-36.2) SECONDS Sodium 139 (137-145) mmol/L Potassium 3.2 L (3.4-5.1) mmol/L Chloride 104 (98-107) mmol/L Carbon Dioxide 30 (22-32) mmol/L BUN 13 (7-17) mg/dL Creatinine 0.88 (0.52-1.04) mg/dL Estimated GFR > 60.0 (>60) mL/min BUN/Creatinine Ratio 14.8 (6-22) Glucose 145 H (70-100) mg/dL Lactate 1.6 (0.7-2.1) mmol/L Calcium 9.3 (8.4-10.2) mg/dL Total Bilirubin 0.1 L (0.2-1.3) mg/dL AST 23 (14-36) IU/L ALT 21 (<35) IU/L Alkaline Phosphatase 60 (38-126) U/L Total Protein 7.0 (6.3-8.2) g/dL Albumin 4.2 (3.5-5.0) g/dL Globulin 2.8 (1.7-4.1) g/dL Albumin/Globulin Ratio 1.5 (1.0-2.8) Lipase 22 L (23-300) U/L Procalcitonin 0.05 (<0.5) ng/mL Urine Test (Negative) Urine Dip Bedside Urine Glucose Negative Bedside Urine Bilirubin - Negative Bedside Urine Ketone - Negative Urine Specific [place] 1.015 Bedside Urine Occult Blood - Negative Bedside Urine pH 7 Bedside Urine Protein +/- 15 Bedside Urine Urobilinogen - Negative Bedside Urine Nitrite - Negative Bedside Urine Leukocytes - Negative Esterase Imaging Data Abdominal x-ray: Radiologist's Impression: [facility] [place] [id number] ReportSigned Patient: Josie Silvestre [facility]#: [id number]: 1975Acct:[id number]/Sex: 44 / FDate of Service: 04/13/20Loc: EDAccession Number: [id number] Procedure: XR abdomen min 2V Ordering Provider: Vesna Dewey D.O. PROCEDURE: XR ABDOMEN MIN 2V INDICATIONS: abdominal pain TECHNIQUE: 2 views of the abdomen were acquired. COMPARISON: [facility], CT, CT ABDOMEN PELVIS W CON, 08/13/2019, 22:00. FINDINGS: Surgical changes and devices: Right upper quadrant cholecystectomy clips. Presumed cardiac monitoring device overlying the lower left chest. Bowel: No pneumoperitoneum. The bowel gas pattern is normal. Soft tissues: No masses; visualized solid organ contours appear normal in size. No suspicious abdominal calcifications. Bones: No suspicious bony abnormalities. IMPRESSION: Large body habitus which reduces quality of visualization, no sign of intestinal obstruction or perforation. Dictated by: Brian Vann M.D. on 04/13/2020 at 21:52 Approved by: Brian Vann M.D. on 04/13/2020 at 21:54 MDM Narrative Medical decision making narrative: This is a 44 year old female with multiple concerns. Patient has complaint of swelling and pain of right side of face with pain that seems to be originating from dental area. Patient also has some concern for abdominal pain and obstruction but has not been having symptoms consistent with obstruction today. We discussed xray imaging is not definitive but can use as screening exam and is negative for signs of obstruction. Patient has leukocytosis but multiple possible causes, mild hypokalemia. Glucose is 145 with no other major abnormalities. procalcitonin is reassuring as is lactate. Negative preg and urine except for protein. Patient states she has done well with clindamycin in the past and plan to start for possible dental infection/facial cellulitis. Discharge Plan Departure Patient Disposition: Home Clinical Impression: Facial swelling Activity Restrictions/Additional Instructions: I suspect you may have an infection, possibly dental causing your swelling and symptoms. Take antibiotics until gone. If you develop worsening swelling, fevers, worsening redness, fluid collection, stridor, hoarseness or swelling her airway lightheadedness or passing out, persistent vomiting, rapidly worsening black or bloody stools, inability to have a bowel movement, or other new or concerning symptoms. Prescriptions: New clindamycin HCl 300 mg capsule 300 mg PO Q6H Qty: 40 RF: 0 ondansetron HCl [Zofran] 4 mg tablet 4 mg PO Q6H PRN (Reason: nausea and vomiting) Qty: 10 RF: 0 fluconazole [Diflucan] 150 mg tablet 150 mg PO Q3D Qty: 2 RF: 0 No Action atorvastatin 10 mg tablet 1 tab PO QPM RF: 0 baclofen 10 mg tablet 1 - 2 tab PO TID PRN (Reason: Pain (Scale Score 1-3)) RF: 0 diazepam 10 mg tablet 1 tab PO Q8H PRN (Reason: Spasms) RF: 0 fluconazole 100 mg tablet 1 tab PO PRN PRN (Reason: Rash) RF: 0 meclizine 12.5 mg tablet 12.5 mg PO PRN PRN (Reason: Vertigo) RF: 0 gabapentin 300 mg capsule 300 mg PO QID RF: 0 levothyroxine 200 mcg tablet 200 mcg PO DAILY RF: 0 topiramate 100 mg tablet 100 mg PO DAILY RF: 0 eletriptan 40 mg tablet 1 tab PO PRN PRN (Reason: Migraine Headache) RF: 0 triamcinolone acetonide 0.1 % cream See Rx Instructions .ROUTE .COMPLEX RF: 0 zolpidem 5 mg tablet 5 mg PO BEDTIME PRN (Reason: Insomnia) RF: 0 promethazine 12.5 mg tablet 25 mg PO Q6H PRN (Reason: Nausea And Vomiting) RF: 0 insulin aspart U-100 100 unit/mL (3 mL) insulin pen See Rx Instructions .ROUTE .COMPLEX RF: 0 milnacipran 100 mg tablet 100 mg PO BID RF: 0 albuterol sulfate 90 mcg/actuation HFA aerosol inhaler 2 puff INHALATION Q4-6H PRN (Reason: shortness of breath or wheezing) Qty: 8.5 RF: 0 aspirin 325 mg Tablet 325 mg PO DAILY RF: 0 losartan 25 mg Tablet 25 mg PO DAILY RF: 0 levocetirizine 5 mg Tablet 5 mg PO DAILY RF: 0 pioglitazone [Actos] 15 mg Tablet 15 mg PO DAILY RF: 0 ibuprofen 800 mg tablet 600 mg PO Q8H PRN (Reason: pain) RF: 0 trazodone 50 mg Tablet 50 mg PO BEDTIME RF: 0 potassium chloride 10 mEq Tablet Extended Release 30 meq PO DAILY RF: 0 prednisone 20 mg tablet See Rx Instructions .ROUTE .COMPLEX Qty: 17 RF: 0 Referrals: Cedric Noel DO [Primary Care Provider] -
--- NOTE | 2020-04-13 21:32 | DI.RAD.S_ITS ---
PROCEDURE: XR ABDOMEN MIN 2V INDICATIONS: abdominal pain TECHNIQUE: 2 views of the abdomen were acquired. COMPARISON: [facility], CT, CT ABDOMEN PELVIS W CON, 08/13/2019, 22:00. FINDINGS: Surgical changes and devices: Right upper quadrant cholecystectomy clips. Presumed cardiac monitoring device overlying the lower left chest. Bowel: No pneumoperitoneum. The bowel gas pattern is normal. Soft tissues: No masses; visualized solid organ contours appear normal in size. No suspicious abdominal calcifications. Bones: No suspicious bony abnormalities. IMPRESSION: Large body habitus which reduces quality of visualization, no sign of intestinal obstruction or perforation. Dictated by: Brian Vann M.D. on 04/13/2020 at 21:52 Approved by: Brian Vann M.D. on 04/13/2020 at 21:54
[2020-04-13] MEDS: ONDANSETRON 4 MG/2 ML INJ IV (21:38)
[2020-04-13] MEDS: KETOROLAC 60 MG/2 ML VIAL 15 MG IV (21:39)
[2020-04-13] MEDS: CLINDAMYCIN 150 MG CAPSULE 300 MG PO (22:05)
== END 2020-04-13 23:01 | disposition home or self-care (01) ==
PROVIDERS: Emergency Provider Emergency Medicine; Family Provider Family Medicine; PCP Family Medicine
DX: R22.0 Localized swelling, mass and lump, head (principal); R11.10 Vomiting, unspecified; R10.10 Upper abdominal pain, unspecified; E10.8 Type 1 diabetes mellitus with unspecified complications; Z79.4 Long term (current) use of insulin; E78.5 Hyperlipidemia, unspecified; E03.9 Hypothyroidism, unspecified
CPT/HCPCS: 36415; 74019; 80053; 81003; 81025; 83605; 83690; 84145; 85025; 85610; 85730; 87040; 96361; 96374; 96375; 99283; 99284; J1885; J2405

== ENCOUNTER 2020-04-30 12:47 | Emergency (ER) | payer MEDICARE, OTHER, SELFPAY ==
[2020-03-20 10:23] VITALS: BMI 40.2
[2020-04-30] VITALS (7 sets, daily range): BP systolic 122–159; BP diastolic 65–75; PULSE 92–99; RESP 12–21; TEMP 36.8; O2SAT 96–99; BMI 42.5
--- NOTE | 2020-04-30 13:40 | ED_ITS ---
HPI - Allergic Reaction <Mercedes ToribioGILSON - Last Filed: 04/30/20 16:38> General Chief complaint: Allergic Reaction Stated complaint: Swelling Feet & Hands/SOB Time Seen by Provider: 04/30/20 13:22 Source: patient Mode of arrival: EMS Limitations: no limitations History of Present Illness HPI narrative: 44yo female with history of MS, PCOS, HTN, HLD, and DM II, presents emergency department for an infusion reaction. Patient states she gets an infusion of Tysaveri every 28 days for MS. She has had to infusion reactions in the past, 1 a year ago and 1 when she 1st began this medication a year ago. She states she received another infusion yesterday, that evening she took Benadryl prophylactically, she started to feel wheezy and short of breath. This morning she felt like her throat was sore and she felt more wheezy. She states she has some itching in her feet bilaterally which happened last time. She took 50 of Benadryl approximately 4-5 hours ago and called her primary care provider and was encouraged to be seen in the emergency department. She denies any chest pain, abdominal pain, nausea, vomiting, diarrhea, or any other concerns. Related Data Home Medications Medication Instructions Recorded Confirmed atorvastatin 1 tab PO QPM 02/07/18 11/18/19 baclofen 1 - 2 tab PO TID PRN 02/07/18 11/18/19 diazepam 1 tab PO Q8H PRN 02/07/18 11/18/19 eletriptan 1 tab PO PRN PRN 02/07/18 11/18/19 fluconazole 1 tab PO PRN PRN 02/07/18 11/18/19 gabapentin 300 mg PO QID 02/07/18 11/18/19 levothyroxine 200 mcg PO DAILY 02/07/18 11/18/19 meclizine 12.5 mg PO PRN PRN 02/07/18 11/18/19 topiramate 100 mg PO DAILY 02/07/18 11/18/19 triamcinolone acetonide See Rx Instructions .ROUTE .COMPLEX 02/07/18 11/18/19 zolpidem 5 mg PO BEDTIME PRN 02/07/18 11/18/19 insulin aspart U-100 See Rx Instructions .ROUTE .COMPLEX 08/20/18 11/18/19 milnacipran 100 mg PO BID 08/20/18 11/18/19 promethazine 25 mg PO Q6H PRN 08/20/18 11/18/19 aspirin 325 mg PO DAILY 08/13/19 11/18/19 levocetirizine 5 mg PO DAILY 08/13/19 11/18/19 losartan 25 mg PO DAILY 08/13/19 11/18/19 pioglitazone [Actos] 15 mg PO DAILY 08/13/19 11/18/19 ibuprofen 600 mg PO Q8H PRN 08/14/19 11/18/19 trazodone 50 mg PO BEDTIME 08/14/19 11/18/19 potassium chloride 30 meq PO DAILY 11/18/19 11/18/19 Previous Rx's Medication Instructions Recorded albuterol sulfate 2 puff INHALATION Q4-6H PRN #8.5 08/03/19 gram prednisone See Rx Instructions .ROUTE 11/21/19 .COMPLEX #17 tab clindamycin HCl 300 mg PO Q6H #40 cap 04/13/20 fluconazole [Diflucan] 150 mg PO Q3D #2 tab 04/13/20 ondansetron HCl [Zofran] 4 mg PO Q6H PRN #10 tab 04/13/20 prednisone 40 mg PO DAILY 3 Days #6 tab 04/30/20 Allergies Allergy/AdvReac Type Severity Reaction Status Date / Time codeine Allergy Severe Rash Verified 04/13/20 18:10 lovastatin [From Advicor] Allergy Severe Anaphylaxis Verified 04/13/20 18:10 niacin [From Advicor] Allergy Severe Anaphylaxis Verified 04/13/20 18:10 pseudoephedrine Allergy Severe Anaphylaxis Verified 04/13/20 18:10 red (food color) Allergy Severe Anaphylaxis Verified 04/13/20 18:10 Penicillins Allergy Intermediate Rash Verified 04/13/20 18:10 mushroom Allergy Unknown Verified 04/13/20 18:10 ampicillin Allergy Rash Verified 04/13/20 18:10 erythromycin base Allergy Verified 04/13/20 18:10 glatiramer (copolymer 1) Allergy Verified 04/13/20 18:10 interferon beta-1a Allergy itching Verified 04/13/20 18:10 and rash Iodinated Contrast Media Allergy Verified 04/13/20 18:10 lisinopril Allergy Kidneys Verified 04/13/20 18:10 shut down metformin Allergy Gastrointestinal Verified 04/13/20 18:10 Upset Sulfa (Sulfonamide Allergy Verified 04/13/20 18:10 Antibiotics) artificial sweetners Allergy Uncoded 04/13/20 18:10 barium Allergy Uncoded 04/13/20 18:10 Review of Systems <GILSON Pablo - Last Filed: 04/30/20 16:38> Review of Systems Narrative: REVIEW OF SYSTEMS: GENERAL: Denies fevers. HENT: No head trauma. CARDIOVASCULAR: No chest pain. RESPIRATORY: Reports wheezing, see HPI. GASTROINTESTINAL: No nausea or vomiting. MUSCULOSKELETAL: No weakness or injury. INTEGUMENTARY: Reports itchy feet, see HPI. Patient History <GILSON Pablo - Last Filed: 04/30/20 16:38> Medical History Chronically low serum potassium Diabetes Diabetic gastroparesis Dislocation of left patella Fatigue Fibromyalgia History of shingles Hyperlipidemia Hypothyroidism Low vitamin D level Multiple sclerosis Obstructive sleep apnea syndrome Osteoarthritis PCOS (polycystic ovarian syndrome) Raynauds disease Type 2 diabetes mellitus Surgical History History of repair of anterior cruciate ligament of right knee Hx of cholecystectomy Family History Family/Other Loud snoring Sleep apnea Depression Dementia Father Loud snoring Sleep apnea Insomnia Restless legs syndrome Obesity Hypertension Heart disease Depression Bipolar disorder Mother Insomnia Hypertension Heart disease Depression Anxiety Family/Other Loud snoring Obesity Hypertension Depression Anxiety Social History marital status: household members: spouse and children Smoking Status: Never smoker alcohol intake: current Smoking Status: Never smoker alcohol intake frequency: a few times a month Substance Use Type: does not use Exam <GILSON Pablo - Last Filed: 04/30/20 16:38> Initial Vital Signs Initial Vital Signs: Vital Signs Temperature 98.3 F 04/30/20 13:07 Pulse Rate 99 H 04/30/20 13:07 Respiratory Rate 16 04/30/20 13:07 Blood Pressure 151/66 H 04/30/20 13:07 Pulse Oximetry 99 04/30/20 13:07 PHYSICAL EXAMINATION: GENERAL: Awake and alert. HENT: Normocephalic, atraumatic. Oropharynx with slight erythema, no s ignificant swelling. Uvula midline without significant swelling. Voice sounds dry, no significant hoarseness. EYES: Conjunctiva pink, sclera white, no periorbital swelling. No discharge. CHEST: Normal to inspection and without deformities. CARDIOVASCULAR: S1 and S2 sounds normal. Regular rate and rhythm, no murmurs, clicks, or bruits. RESPIRATORY: Normal respiratory rate, trachea midline, airway patent. No stridor, nasal flaring or accessory muscle use. Able to speak in full sentences. Lungs bases with bilateral wheezing, no rhonchi or crackles. MUSCULOSKELETAL: Normal gait and coordination. Equal tone and mass bilaterally. EXTREMITIES: Moves all extremities. SKIN: Warm, dry, soft, appropriate color for ethnicity. No lesions or rashes. NEURO: Alert and Oriented X 3. Good coordination. No ataxia or cognitive issues. PSYCH: Appropriate affect and mood. <Desiree Chowdary DO - Last Filed: 05/01/20 08:04> Initial Vital Signs Initial Vital Signs: Vital Signs Temperature 98.3 F 04/30/20 13:07 Pulse Rate 99 H 04/30/20 13:07 Respiratory Rate 16 04/30/20 13:07 Blood Pressure 151/66 H 04/30/20 13:07 Pulse Oximetry 99 04/30/20 13:07 Course <GILSON Pablo - Last Filed: 04/30/20 16:38> Course Course Narrative: 1407: Patient given steroids and Benadryl. 1530: Patient states she is feeling much better, would like his neck at this time as she states her blood sugar is lower and is time to eat. She states her throat feels significantly better, wheezing has resolved. Orders Ordered: Discontinued Medications Diphenhydramine HCl (Diphenhydramine 50 Mg/Ml Vial) 25 mg IV NOW ONE Stop: 04/30/20 13:39 Last Admin: 04/30/20 14:07 Dose: 25 mg Documented by: ANNE Famotidine (Pepcid) 20 mg in 50 mls @ 200 mls/hr IV NOW ONE Stop: 04/30/20 13:52 Last Infusion: 04/30/20 14:30 Dose: 0 mls/hr Documented by: Admin: 04/30/20 14:07 Dose: 200 mls/hr Documented by: ANNE Methylprednisolone (Methylprednisolone 125 Mg/2 Ml Vial) 125 mg IV NOW ONE Stop: 04/30/20 13:39 Last Admin: 04/30/20 14:07 Dose: 125 mg Documented by: ANNE Ondansetron HCl (Ondansetron 4 Mg/2 Ml Inj) 4 mg IV NOW ONE Stop: 04/30/20 15:16 Last Admin: 04/30/20 15:22 Dose: 4 mg Documented by: ANNE Consultations Consultation #1: Patient staffed with Dr. Chowdary discussed test, test results, plan of care. Vital Signs Vital signs: Vital Signs - 8 hr 04/30/20 13:07 04/30/20 13:14 04/30/20 13:30 Temperature 98.3 F Pulse Rate 97 H 98 H 98 H Respiratory Rate 12 19 21 Blood Pressure 151/66 H 137/65 122/66 Pulse Oximetry 97 97 97 04/30/20 14:00 04/30/20 14:30 04/30/20 15:00 Temperature Pulse Rate 94 H 93 H 92 H Respiratory Rate 18 19 14 Blood Pressure 147/75 H 159/71 H 144/74 H Pulse Oximetry 96 97 97 04/30/20 15:28 Temperature Pulse Rate 94 H Respiratory Rate 20 Blood Pressure 144/74 H Pulse Oximetry 97 <Desiree Chowdary, DO - Last Filed: 05/01/20 08:04> Orders Ordered: Discontinued Medications Diphenhydramine HCl (Diphenhydramine 50 Mg/Ml Vial) 25 mg IV NOW ONE Stop: 04/30/20 13:39 Last Admin: 04/30/20 14:07 Dose: 25 mg Documented by: ANNE Famotidine (Pepcid) 20 mg in 50 mls @ 200 mls/hr IV NOW ONE Stop: 04/30/20 13:52 Last Infusion: 04/30/20 14:30 Dose: 0 mls/hr Documented by: Admin: 04/30/20 14:07 Dose: 200 mls/hr Documented by: ANNE Methylprednisolone (Methylprednisolone 125 Mg/2 Ml Vial) 125 mg IV NOW ONE Stop: 04/30/20 13:39 Last Admin: 04/30/20 14:07 Dose: 125 mg Documented by: ANNE Ondansetron HCl (Ondansetron 4 Mg/2 Ml Inj) 4 mg IV NOW ONE Stop: 04/30/20 15:16 Last Admin: 04/30/20 15:22 Dose: 4 mg Documented by: ANNE Vital Signs Vital signs: Vital Signs - 8 hr 04/30/20 13:07 04/30/20 13:14 04/30/20 13:30 Temperature 98.3 F Pulse Rate 97 H 98 H 98 H Respiratory Rate 12 19 21 Blood Pressure 151/66 H 137/65 122/66 Pulse Oximetry 97 97 97 04/30/20 14:00 04/30/20 14:30 04/30/20 15:00 Temperature Pulse Rate 94 H 93 H 92 H Respiratory Rate 18 19 14 Blood Pressure 147/75 H 159/71 H 144/74 H Pulse Oximetry 96 97 97 04/30/20 15:28 Temperature Pulse Rate 94 H Respiratory Rate 20 Blood Pressure 144/74 H Pulse Oximetry 97 MDM - Allergic Reaction <GILSON Pablo - Last Filed: 04/30/20 16:38> Medical Records Attestation: I reviewed the patient's medical records. Lab Data Attestation: I reviewed the patient's lab results. Result diagrams: 04/30/20 13:57 04/30/20 13:57 Labs: Lab Results 04/30/20 04/30/20 Range/Units 13:57 13:57 WBC 10.2 (4.5-11.0) X10^3/uL RBC 5.19 (4.0-5.2) X10^6/uL Hgb 14.0 (12.0-16.0) g/dL Hct 43.1 (36-46) % MCV 83.1 (80-100) fL MCH 27.0 (26-34) PG MCHC 32.5 (30-36) % RDW 15.4 H (11.6-14.8) % Plt Count 330 (150-400) X10^3/uL Neut % (Auto) 52.0 (50-75) % Lymph % (Auto) 39.4 (25-40) % Hudson % (Auto) 5.9 (3-14) % Eos % (Auto) 1.8 L (2-4) % Baso % (Auto) 0.9 (0-2) % Neut # (Auto) 5300 (6541-8008) /uL Lymph # (Auto) 4000 (1927-0578) /uL Hudson # (Auto) 600 (0-900) /uL Eos # (Auto) 200 (0-450) /uL Baso # (Auto) 100 (0-100) /uL Sodium 142 (137-145) mmol/L Potassium 3.9 (3.4-5.1) mmol/L Chloride 112 H (98-107) mmol/L Carbon Dioxide 26 (22-32) mmol/L BUN 12 (7-17) mg/dL Creatinine 0.80 (0.52-1.04) mg/dL Estimated GFR > 60.0 (>60) mL/min BUN/Creatinine Ratio 15.0 (6-22) Glucose 84 (70-100) mg/dL Calcium 9.3 (8.4-10.2) mg/dL Total Bilirubin 0.3 (0.2-1.3) mg/dL AST 30 (14-36) IU/L ALT 20 (<35) IU/L Alkaline Phosphatase 54 (38-126) U/L Total Protein 7.2 (6.3-8.2) g/dL Albumin 4.2 (3.5-5.0) g/dL Globulin 3.0 (1.7-4.1) g/dL Albumin/Globulin Ratio 1.4 (1.0-2.8) Imaging Data Chest x-ray: Radiologist's Impression: [address] [id number] ReportSigned Patient: Josie Silvestre [facility]#: [id number]: 1975Acct:[id number]/Sex: 44 / FDate of Service: 04/30/20Loc: EDAccession Number: [id number] Procedure: XR chest 1V Ordering Provider: Mercedes Toribio PROCEDURE: XR CHEST 1V INDICATIONS: wheezing TECHNIQUE: One view of the chest was acquired. COMPARISON: [facility], CR, XR ABDOMEN MIN 2V, 04/13/2020, 21:33. [facility], CT, CT ABDOMEN PELVIS W CON, 08/13/2019, 22:00. [facility], CR, XR CHEST 1V, 11/18/2019, 10:33. [facility], CR, XR CHEST 1V, 08/13/2019, 20:20. FINDINGS: Surgical changes and devices: None. Lungs and pleura: Lungs are clear. No pleural effusions or pneumothorax. Mediastinum: Mediastinal contours appear normal except for an unusually prominent pre pericardial right-sided fat pad, seen also on prior CT scanning and abdomen plain film imaging earlier this month.. Heart size is normal. Bones and chest wall: No suspicious bony lesions. Overlying soft tissues appear unremarkable. IMPRESSION: Source of wheezing is not found. There is a prominent pre pericardial right-sided fat pad, which could obscure visualization of an area of pneumonia. Follow up PA and lateral chest plain film would more accurately assess the right lung base, and also if unusual symptoms persist CT scanning may become necessary. Dictated by: Brian Vann M.D. on 04/30/2020 at 13:58 Approved by: Brian Vann M.D. on 04/30/2020 at 14:00 [facility] Narrative Medical decision making narrative: 44-year-old female presenting to the emergency department for an allergic reaction after infusion yesterday. She has some throat irritation without significant swelling, no apparent airway compromise by any means, some wheezes seen on examination however no respiratory distress or hypoxia. Symptoms significantly improved after administration of Solu-Medrol and Benadryl. Chest x-ray negative for any concerning etiology such as infection. Laboratory work within normal limits. Patient has had this reaction the past, she was encouraged to alert her primary care provider about this. We discussed the benefits and wrist to continuing with a steroid dose over the next 3 days given her comorbidity of diabetes. Shared decision making was used to give patient 3 days of 40 mg of prednisone, she was encouraged to take this if she develops any more symptoms in 24 hours. We discussed that she may need to increase her insulin needs over the next few days if this was the case. She was encouraged to call her primary care provider today or tomorrow to schedule follow-up appointment. Strict return precautions given for new or worsening symptoms. She agreed to plan of care verbalized understanding. <Desiree Chowdary, DO - Last Filed: 05/01/20 08:04> Lab Data Labs: Lab Results 04/30/20 04/30/20 Range/Units 13:57 13:57 WBC 10.2 (4.5-11.0) X10^3/uL RBC 5.19 (4.0-5.2) X10^6/uL Hgb 14.0 (12.0-16.0) g/dL Hct 43.1 (36-46) % MCV 83.1 (80-100) fL MCH 27.0 (26-34) PG MCHC 32.5 (30-36) % RDW 15.4 H (11.6-14.8) % Plt Count 330 (150-400) X10^3/uL Neut % (Auto) 52.0 (50-75) % Lymph % (Auto) 39.4 (25-40) % Hudson % (Auto) 5.9 (3-14) % Eos % (Auto) 1.8 L (2-4) % Baso % (Auto) 0.9 (0-2) % Neut # (Auto) 5300 (7655-9333) /uL Lymph # (Auto) 4000 (0095-2717) /uL Hudson # (Auto) 600 (0-900) /uL Eos # (Auto) 200 (0-450) /uL Baso # (Auto) 100 (0-100) /uL Sodium 142 (137-145) mmol/L Potassium 3.9 (3.4-5.1) mmol/L Chloride 112 H (98-107) mmol/L Carbon Dioxide 26 (22-32) mmol/L BUN 12 (7-17) mg/dL Creatinine 0.80 (0.52-1.04) mg/dL Estimated GFR > 60.0 (>60) mL/min BUN/Creatinine Ratio 15.0 (6-22) Glucose 84 (70-100) mg/dL Calcium 9.3 (8.4-10.2) mg/dL Total Bilirubin 0.3 (0.2-1.3) mg/dL AST 30 (14-36) IU/L ALT 20 (<35) IU/L Alkaline Phosphatase 54 (38-126) U/L Total Protein 7.2 (6.3-8.2) g/dL Albumin 4.2 (3.5-5.0) g/dL Globulin 3.0 (1.7-4.1) g/dL Albumin/Globulin Ratio 1.4 (1.0-2.8) Discharge Plan Departure Patient Disposition: Home Clinical Impression: Allergic reaction to drug Qualifiers: Encounter type: initial encounter Qualified Code(s): T78.40XA - Allergy, unspecified, initial encounter Instructions: DI for General Allergic Reactions Activity Restrictions/Additional Instructions: Thank you for entrusting me with your care today. As discussed, your lab work is within normal limits. I suspect her symptoms are caused by an allergic reaction to your infusion. I prescribed you a few doses of prednisone. Take 40 mg over the next 3 days if you continue to develop symptoms. Please be aware that this can elevate your blood sugars. Please follow-up with your primary care provider in the next 1-2 weeks. Return emergency department for any new or worsening symptoms especially throat swelling, shortness of breath, or any other concerns. Prescriptions: New prednisone 20 mg tablet 40 mg PO DAILY 3 Days Qty: 6 RF: 0 No Action clindamycin HCl 300 mg capsule 300 mg PO Q6H Qty: 40 RF: 0 ondansetron HCl [Zofran] 4 mg tablet 4 mg PO Q6H PRN (Reason: nausea and vomiting) Qty: 10 RF: 0 fluconazole [Diflucan] 150 mg tablet 150 mg PO Q3D Qty: 2 RF: 0 atorvastatin 10 mg tablet 1 tab PO QPM RF: 0 baclofen 10 mg tablet 1 - 2 tab PO TID PRN (Reason: Pain (Scale Score 1-3)) RF: 0 diazepam 10 mg tablet 1 tab PO Q8H PRN (Reason: Spasms) RF: 0 fluconazole 100 mg tablet 1 tab PO PRN PRN (Reason: Rash) RF: 0 meclizine 12.5 mg tablet 12.5 mg PO PRN PRN (Reason: Vertigo) RF: 0 gabapentin 300 mg capsule 300 mg PO QID RF: 0 levothyroxine 200 mcg tablet 200 mcg PO DAILY RF: 0 topiramate 100 mg tablet 100 mg PO DAILY RF: 0 eletriptan 40 mg tablet 1 tab PO PRN PRN (Reason: Migraine Headache) RF: 0 triamcinolone acetonide 0.1 % cream See Rx Instructions .ROUTE .COMPLEX RF: 0 zolpidem 5 mg tablet 5 mg PO BEDTIME PRN (Reason: Insomnia) RF: 0 promethazine 12.5 mg tablet 25 mg PO Q6H PRN (Reason: Nausea And Vomiting) RF: 0 insulin aspart U-100 100 unit/mL (3 mL) insulin pen See Rx Instructions .ROUTE .COMPLEX RF: 0 milnacipran 100 mg tablet 100 mg PO BID RF: 0 albuterol sulfate 90 mcg/actuation HFA aerosol inhaler 2 puff INHALATION Q4-6H PRN (Reason: shortness of breath or wheezing) Qty: 8.5 RF: 0 aspirin 325 mg Tablet 325 mg PO DAILY RF: 0 losartan 25 mg Tablet 25 mg PO DAILY RF: 0 levocetirizine 5 mg Tablet 5 mg PO DAILY RF: 0 pioglitazone [Actos] 15 mg Tablet 15 mg PO DAILY RF: 0 ibuprofen 800 mg tablet 600 mg PO Q8H PRN (Reason: pain) RF: 0 trazodone 50 mg Tablet 50 mg PO BEDTIME RF: 0 potassium chloride 10 mEq Tablet Extended Release 30 meq PO DAILY RF: 0 prednisone 20 mg tablet See Rx Instructions .ROUTE .COMPLEX Qty: 17 RF: 0 Referrals: Cedric Noel DO [Primary Care Provider] - <Desiree Chowdary DO - Last Filed: 05/01/20 08:04> Cosign ED Attending Cosignature Attestation: I was immediately available in the department for consultation. Documentation has been reviewed. I agree with assessment and plan.
[2020-04-30 14:07] LABS: Add Manual Diff / Slide Review NO; Basophils Absolute Auto 100 /uL (0-100); Basophils Percent Auto 0.9 % (0-2); Eosinophils Absolute Auto 200 /uL (0-450); Eosinophils Percent Auto 1.8 % (2-4); Hematocrit 43.1 % (36-46); Lymphocytes Absolute Auto 4000 /uL (1100-4500); Lymphocytes Percent Auto 39.4 % (25-40); Mean Corpuscular HGB Conc 32.5 % (30-36); Mean Corpuscular Volume 83.1 fL (80-100); Monocytes Absolute Auto 600 /uL (0-900); Monocytes Percent Auto 5.9 % (3-14); Neutrophils Absolute Auto 5300 /uL (1500-7000); Platelet Count 330 X10^3/uL (150-400); Red Blood Cell Count 5.19 X10^6/uL (4.0-5.2); Red Cell Distribution Width 15.4 % (11.6-14.8); White Blood Cell Count 10.2 X10^3/uL (4.5-11.0)
[2020-04-30] MEDS: diphenhydrAMINE 50 MG/ML VIAL 25 MG IV (14:07)
[2020-04-30] MEDS: methylPREDNISolone 125 MG/2 ML VIAL IV (14:07)
[2020-04-30] MEDS: FAMOTIDINE 20 MG/50 ML PIGGYBACK 200 MG IV (14:07)
[2020-04-30 14:14] LABS: Alanine Aminotransferase 20 IU/L (<35); Albumin 4.2 g/dL (3.5-5.0); Albumin Globulin Ratio 1.4 (1.0-2.8); Alkaline Phosphatase 54 U/L (38-126); Aspartate Aminotransferase 30 IU/L (14-36); Bilirubin Total 0.3 mg/dL (0.2-1.3); Blood Urea Nitrogen 12 mg/dL (7-17); Calcium 9.3 mg/dL (8.4-10.2); Carbon Dioxide 26 mmol/L (22-32); Chloride 112 mmol/L (98-107); Estimated Glomerular Filt Rate > 60.0 mL/min (>60); Glucose 84 mg/dL (70-100); Sodium 142 mmol/L (137-145); Total Protein 7.2 g/dL (6.3-8.2)
[2020-04-30 14:16] LABS: HEMOLYSIS 72 (0-50)
[2020-04-30 14:17] LABS: Potassium 3.9 mmol/L (3.4-5.1)
[2020-04-30] MEDS: ONDANSETRON 4 MG/2 ML INJ IV (15:22)
== END 2020-04-30 15:29 | disposition home or self-care (01) ==
PROVIDERS: Emergency Provider Nurse Practitioner; Family Provider Family Medicine; PCP Family Medicine
DX: R06.02 Shortness of breath (principal); J02.9 Acute pharyngitis, unspecified; R06.2 Wheezing; T50.995A Adverse effect of other drugs, medicaments and biological substances, initial encounter; G35 Multiple sclerosis; I10 Essential (primary) hypertension; E78.5 Hyperlipidemia, unspecified; E11.9 Type 2 diabetes mellitus without complications
CPT/HCPCS: 36415; 71045; 80053; 85025; 93005; 93010; 96365; 96375; 99281; 99284; J1200; J2405; J2930

== ENCOUNTER 2020-12-29 17:23 | Emergency (ER) | payer MEDICARE, OTHER, SELFPAY ==
[2020-03-20 10:23] VITALS: BMI 40.2
[2020-12-29 17:29] VITALS: BP 140/71; PULSE 107; RESP 18; TEMP 36.7; O2SAT 99; BMI 42.9
--- NOTE | 2020-12-29 17:34 | DI.RAD.S_ITS ---
PROCEDURE: XR CHEST 2V INDICATIONS: URI TECHNIQUE: 2 views of the chest were acquired. COMPARISON: [facility], CR, XR CHEST 1V, 04/30/2020, 13:42. FINDINGS: Surgical changes and devices: None. Lungs and pleura: There are right basilar opacities with effacement of the right diaphragmatic contours compatible with solid a reagan or atelectasis. Mild linear atelectasis or scarring redemonstrated in the left base. No pleural effusions or pneumothorax. Mediastinum: Mediastinal contours are normal. Heart size is normal. Bones and chest wall: No suspicious bony abnormalities. Soft tissues appear unremarkable. IMPRESSION: 1. Increased bibasilar opacities consistent with consolidation or atelectasis. Dictated by: Ever Cisneros M.D. on 12/29/2020 at 17:53 Approved by: Ever Cisneros M.D. on 12/29/2020 at 17:55
[2020-12-29 18:00] LABS: COVID19 -Nasal RAPID Negative (Negative)
[2020-12-29 18:37] VITALS: BP 145/99; PULSE 109; RESP 16; TEMP 37.1; O2SAT 99
--- NOTE | 2020-12-29 18:43 | ED.GENADULT ---
HPI - General Adult General Chief complaint: Upper Respiratory Symptoms Stated complaint: BRONCHITIS SYMP, GREEN GUNK,PREV FEV,SOB Time Seen by Provider: 12/29/20 18:12 Source: patient Mode of arrival: Ambulatory Limitations: no limitations History of Present Illness HPI narrative: 45-year-old woman with a history of MS, diabetes on insulin pump, hyperlipidemia, hypertension hypothyroidism who for the last 3-4 days has been feeling generally unwell. She has had an increasingly productive cough over the last 3 days. She notes that she just finished taking part in show at [employer] and is finding that the right side of her throat is tender and she is slightly hoarse. Last night she had a fever to 102 that went away without specific treatment and has not returned today. Two days ago she had small amount of emesis and is concerned that she may have actually aspirated. She describes her entire chest aching but no wheezing or overt dyspnea or orthopnea. She is not having palpitations. No specific abdominal pain or diarrhea. No lower extremity edema. Is not noticing a dramatic worsening or exacerbation with her MS. She does note that over the last 72 hours her blood sugars have been increasingly elevated when she eats. She is using her correction scale appropriately. Related Data Home Medications Medication Instructions Recorded Confirmed atorvastatin 10 mg tablet 1 tab PO QPM 02/07/18 11/18/19 baclofen 10 mg tablet 1 - 2 tab PO TID PRN 02/07/18 11/18/19 diazepam 10 mg tablet 1 tab PO Q8H PRN 02/07/18 11/18/19 eletriptan 40 mg tablet 1 tab PO PRN PRN 02/07/18 11/18/19 fluconazole 100 mg tablet 1 tab PO PRN PRN 02/07/18 11/18/19 gabapentin 300 mg capsule 300 mg PO QID 02/07/18 11/18/19 levothyroxine 200 mcg tablet 200 mcg PO DAILY 02/07/18 11/18/19 meclizine 12.5 mg tablet 12.5 mg PO PRN PRN 02/07/18 11/18/19 topiramate 100 mg tablet 100 mg PO DAILY 02/07/18 11/18/19 triamcinolone acetonide 0.1 % See Rx Instructions .ROUTE .COMPLEX 02/07/18 11/18/19 topical cream zolpidem 5 mg tablet 5 mg PO BEDTIME PRN 02/07/18 11/18/19 insulin aspart U-100 100 unit/mL See Rx Instructions .ROUTE .COMPLEX 08/20/18 11/18/19 (3 mL) subcutaneous pen milnacipran 100 mg tablet 100 mg PO BID 08/20/18 11/18/19 promethazine 12.5 mg tablet 25 mg PO Q6H PRN 08/20/18 11/18/19 aspirin 325 mg tablet 325 mg PO DAILY 08/13/19 11/18/19 levocetirizine 5 mg tablet 5 mg PO DAILY 08/13/19 11/18/19 losartan 25 mg tablet 25 mg PO DAILY 08/13/19 11/18/19 pioglitazone 15 mg tablet (Actos) 15 mg PO DAILY 08/13/19 11/18/19 ibuprofen 800 mg tablet 600 mg PO Q8H PRN 08/14/19 11/18/19 trazodone 50 mg tablet 50 mg PO BEDTIME 08/14/19 11/18/19 potassium chloride 10 mEq 30 meq PO DAILY 11/18/19 11/18/19 tablet,extended release Previous Rx's Medication Instructions Recorded albuterol sulfate 90 mcg/actuation 2 puff INHALATION Q4-6H PRN #8.5 08/03/19 aerosol inhaler gram prednisone 20 mg tablet See Rx Instructions .ROUTE 11/21/19 .COMPLEX #17 tab clindamycin HCl 300 mg capsule 300 mg PO Q6H #40 cap 04/13/20 fluconazole 150 mg tablet 150 mg PO Q3D #2 tab 04/13/20 (Diflucan) ondansetron HCl 4 mg tablet 4 mg PO Q6H PRN #10 tab 04/13/20 (Zofran) cefpodoxime 200 mg tablet 200 mg PO BID #14 tab 12/29/20 doxycycline hyclate 100 mg capsule 100 mg PO BID #14 cap 12/29/20 Allergies Allergy/AdvReac Type Severity Reaction Status Date / Time codeine Allergy Severe Rash Verified 12/29/20 17:34 lovastatin [From Advicor] Allergy Severe Anaphylaxis Verified 12/29/20 17:34 niacin [From Advicor] Allergy Severe Anaphylaxis Verified 12/29/20 17:34 pseudoephedrine Allergy Severe Anaphylaxis Verified 12/29/20 17:34 red (food color) Allergy Severe Anaphylaxis Verified 12/29/20 17:34 Penicillins Allergy Intermediate Rash Verified 12/29/20 17:34 mushroom Allergy Unknown Verified 12/29/20 17:34 ampicillin Allergy Rash Verified 12/29/20 17:34 erythromycin base Allergy Verified 12/29/20 17:34 glatiramer (copolymer 1) Allergy Verified 12/29/20 17:34 interferon beta-1a Allergy itching Verified 12/29/20 17:34 and rash Iodinated Contrast Media Allergy Verified 12/29/20 17:34 lisinopril Allergy Kidneys Verified 12/29/20 17:34 shut down metformin Allergy Gastrointestinal Verified 12/29/20 17:34 Upset Sulfa (Sulfonamide Allergy Verified 12/29/20 17:34 Antibiotics) artificial sweetners Allergy Uncoded 04/13/20 18:10 barium Allergy Uncoded 04/13/20 18:10 Review of Systems Review of Systems Narrative: Remainder of complete review of systems is otherwise unremarkable except for that included in the HPI. Patient History Medical History Chronically low serum potassium Diabetes Diabetic gastroparesis Dislocation of left patella Fatigue Fibromyalgia History of shingles Hyperlipidemia Hypothyroidism Low vitamin D level Multiple sclerosis Obstructive sleep apnea syndrome Osteoarthritis PCOS (polycystic ovarian syndrome) Raynauds disease Type 2 diabetes mellitus Surgical History History of repair of anterior cruciate ligament of right knee Hx of cholecystectomy Family History Family/Other Loud snoring Sleep apnea Depression Dementia Father Loud snoring Sleep apnea Insomnia Restless legs syndrome Obesity Hypertension Heart disease Depression Bipolar disorder Mother Insomnia Hypertension Heart disease Depression Anxiety Family/Other Loud snoring Obesity Hypertension Depression Anxiety Social History marital status: household members: spouse and children Smoking Status: Never smoker alcohol intake: current Smoking Status: Never smoker alcohol intake frequency: a few times a month Substance Use Type: does not use Exam Narrative Exam Narrative: General: Healthy appearing, in no acute distress. Able to give a complete and coherent history. Well-nourished well-developed HEENT: Moist mucous membranes, normal sclera with reactive pupils, Neck: No JVD, supple Respiratory: Lungs with minor rhonchi in the right mid axillary area. No accessory muscle use. No wheezing. Able to speak in full sentences with Full and symmetrical air movement Cardiac: Regular rate and rhythm no murmurs no bruits Abdomen: Soft, obese, nontender, good bowel tones, no flank pain Skin: Warm and dry, no rashes Neurologic: Grossly neurologically intact with no obvious asymmetries or abnormalities Extremities: No trauma, well perfused, no lower extremity edema Psych: Cooperative, appropriate insight and affect Initial Vital Signs Initial Vital Signs: Vital Signs Temperature 98.1 F 12/29/20 17:29 Pulse Rate 107 H 12/29/20 17:29 Respiratory Rate 18 12/29/20 17:29 Blood Pressure 140/71 12/29/20 17:29 Pulse Oximetry 99 12/29/20 17:29 Course Orders Ordered: ED Orders 12/29/20 17:34 XR chest 2V Stat 12/29/20 17:35 COVID19 -Nasal swab/Pre-Proc Stat 12/29/20 18:56 Complete Blood Count AUTO DIFF Stat Comprehensive Metabolic Panel Stat Discontinued Medications Cefixime (Cefixime 400 Mg Capsule) 400 mg PO NOW ONE Stop: 12/29/20 19:30 Doxycycline Hyclate (Doxycycline Hyclate 100 Mg Tablet) 100 mg PO NOW ONE Stop: 12/29/20 19:27 Vital Signs Vital signs: Vital Signs - 8 hr 12/29/20 17:29 12/29/20 18:37 12/29/20 19:00 Temperature 98.1 F 98.7 F Pulse Rate 107 H 109 H 107 H Respiratory Rate 18 16 Blood Pressure 140/71 145/99 H Pulse Oximetry 99 99 98 12/29/20 19:02 Temperature Pulse Rate 107 H Respiratory Rate Blood Pressure 166/77 H Pulse Oximetry 97 Medical Decision Making Lab Data Result diagrams: 12/29/20 18:56 12/29/20 18:56 Labs: Lab Results 12/29/20 12/29/20 12/29/20 Range/Units 17:35 18:56 18:56 WBC 10.3 (4.5-11.0) X10^3/uL RBC 5.00 (4.0-5.2) X10^6/uL Hgb 13.6 (12.0-16.0) g/dL Hct 41.3 (36-46) % MCV 82.6 (80-100) fL MCH 27.1 (26-34) PG MCHC 32.8 (30-36) % RDW 15.5 H (11.6-14.8) % Plt Count 317 (150-400) X10^3/uL Neut % (Auto) 53.6 (50-75) % Lymph % (Auto) 34.0 (25-40) % Addison % (Auto) 8.2 (3-14) % Eos % (Auto) 3.2 (2-4) % Baso % (Auto) 1.0 (0-2) % Neut # (Auto) 5500 (2423-5486) /uL Lymph # (Auto) 3500 (8597-2308) /uL Addison # (Auto) 800 (0-900) /uL Eos # (Auto) 300 (0-450) /uL Baso # (Auto) 100 (0-100) /uL Sodium 139 (137-145) mmol/L Potassium 3.7 (3.4-5.1) mmol/L Chloride 105 (98-107) mmol/L Carbon Dioxide 28 (22-32) mmol/L BUN 15 (7-17) mg/dL Creatinine 0.81 (0.52-1.04) mg/dL Estimated GFR > 60.0 (>60) mL/min BUN/Creatinine Ratio 18.5 (6-22) Glucose 84 (70-100) mg/dL Calcium 9.3 (8.4-10.2) mg/dL Total Bilirubin 0.2 (0.2-1.3) mg/dL AST 21 (14-36) IU/L ALT 19 (<35) IU/L Alkaline Phosphatase 94 (38-126) U/L Total Protein 6.7 (6.3-8.2) g/dL Albumin 4.0 (3.5-5.0) g/dL Globulin 2.7 (1.7-4.1) g/dL Albumin/Globulin Ratio 1.5 (1.0-2.8) SARS-CoV-2 (PCR) Negative (Negative) Imaging Data Chest x-ray: Radiologist's Impression: INDINGS:? ? Surgical changes and devices:? None.? ? Lungs and pleura:? There are right basilar opacities with effacement of the right diaphragmatic contours compatible with solid a reagan or atelectasis.? Mild linear atelectasis or scarring redemonstrated in the left base.? No pleural effusions or pneumothorax.? ? Mediastinum:? Mediastinal contours are normal.? Heart size is normal.? ? Bones and chest wall:? No suspicious bony abnormalities.? Soft tissues appear unremarkable.? ? IMPRESSION:? ? 1. Increased bibasilar opacities consistent with consolidation or atelectasis.? ? ? Dictated by: Ever Cisneros M.D. on 12/29/2020 at 17:53 ? ? MDM Narrative Medical decision making narrative: 45-year-old woman significantly anxious but also with multiple underlying comorbidities that do increase her risk for infection. With the fever last night, the productive cough and chest x-ray suggesting basilar opacities and rhonchi appreciated on clinical exam in the right mid axillary line I believe she is developing an outpatient pneumonia. Lab work is reassuring without signs of sepsis. She is safe for home discharge and will plan on a course of doxycycline 100 BID and 3rd gen cefalosporin (amox allergy) per current ID guidelines for community acquired outpatient pneumonia. Will also recommend probiotics and Imodium in the 1st couple of days if required. Discharge Plan Departure Patient Disposition: Home Clinical Impression: Pneumonia Qualifiers: Pneumonia type: due to unspecified organism Laterality: right Lung location: lower lobe of lung Qualified Code(s): J18.9 - Pneumonia, unspecified organism Instructions: DI for Pneumonia -- Adult Activity Restrictions/Additional Instructions: Thank you for coming in today Your blood work was very reassuring, there is currently no signs sepsis or overwhelming infection. Kidney function and electrolytes are equally reassuring with a normal. Your clinical exam in your chest x-ray both suggest that your developing a right-sided pneumonia. Current guidelines for outpatient treatment of pneumonia suggest 7 days of doxycycline 100 mg twice a day and 7 days of a 3rd generation cephalosporin, you have given you a prescription for cefpodoxime 200 mg twice a day. Both of these prescriptions have been electronically transmitted to [facility] in [place] for you. If you feel that you are getting worse, please feel free to return to the ER Prescriptions: New cefpodoxime 200 mg tablet 200 mg PO BID Qty: 14 RF: 0 doxycycline hyclate 100 mg capsule 100 mg PO BID Qty: 14 RF: 0 No Action clindamycin HCl 300 mg capsule 300 mg PO Q6H Qty: 40 RF: 0 ondansetron HCl [Zofran] 4 mg tablet 4 mg PO Q6H PRN (Reason: nausea and vomiting) Qty: 10 RF: 0 fluconazole [Diflucan] 150 mg tablet 150 mg PO Q3D Qty: 2 RF: 0 atorvastatin 10 mg tablet 1 tab PO QPM RF: 0 baclofen 10 mg tablet 1 - 2 tab PO TID PRN (Reason: Pain (Scale Score 1-3)) RF: 0 diazepam 10 mg tablet 1 tab PO Q8H PRN (Reason: Spasms) RF: 0 fluconazole 100 mg tablet 1 tab PO PRN PRN (Reason: Rash) RF: 0 meclizine 12.5 mg tablet 12.5 mg PO PRN PRN (Reason: Vertigo) RF: 0 gabapentin 300 mg capsule 300 mg PO QID RF: 0 levothyroxine 200 mcg tablet 200 mcg PO DAILY RF: 0 topiramate 100 mg tablet 100 mg PO DAILY RF: 0 eletriptan 40 mg tablet 1 tab PO PRN PRN (Reason: Migraine Headache) RF: 0 triamcinolone acetonide 0.1 % cream See Rx Instructions .ROUTE .COMPLEX RF: 0 zolpidem 5 mg tablet 5 mg PO BEDTIME PRN (Reason: Insomnia) RF: 0 promethazine 12.5 mg tablet 25 mg PO Q6H PRN (Reason: Nausea And Vomiting) RF: 0 insulin aspart U-100 100 unit/mL (3 mL) insulin pen See Rx Instructions .ROUTE .COMPLEX RF: 0 milnacipran 100 mg tablet 100 mg PO BID RF: 0 albuterol sulfate 90 mcg/actuation HFA aerosol inhaler 2 puff INHALATION Q4-6H PRN (Reason: shortness of breath or wheezing) Qty: 8.5 RF: 0 aspirin 325 mg Tablet 325 mg PO DAILY RF: 0 losartan 25 mg Tablet 25 mg PO DAILY RF: 0 levocetirizine 5 mg Tablet 5 mg PO DAILY RF: 0 pioglitazone [Actos] 15 mg Tablet 15 mg PO DAILY RF: 0 ibuprofen 800 mg tablet 600 mg PO Q8H PRN (Reason: pain) RF: 0 trazodone 50 mg Tablet 50 mg PO BEDTIME RF: 0 potassium chloride 10 mEq Tablet Extended Release 30 meq PO DAILY RF: 0 prednisone 20 mg tablet See Rx Instructions .ROUTE .COMPLEX Qty: 17 RF: 0 Referrals: Cedric Noel DO [Primary Care Provider] -
[2020-12-29 19:00] VITALS: PULSE 107; O2SAT 98
[2020-12-29 19:02] VITALS: BP 166/77; PULSE 107; O2SAT 97
[2020-12-29 19:07] LABS: Add Manual Diff / Slide Review NO; Basophils Absolute Auto 100 /uL (0-100); Eosinophils Absolute Auto 300 /uL (0-450); Eosinophils Percent Auto 3.2 % (2-4); Hematocrit 41.3 % (36-46); Hemoglobin 13.6 g/dL (12.0-16.0); Lymphocytes Absolute Auto 3500 /uL (1100-4500); Mean Corpuscular HGB Conc 32.8 % (30-36); Mean Corpuscular Hemoglobin 27.1 PG (26-34); Mean Corpuscular Volume 82.6 fL (80-100); Monocytes Absolute Auto 800 /uL (0-900); Monocytes Percent Auto 8.2 % (3-14); Neutrophils Absolute Auto 5500 /uL (1500-7000); Neutrophils Percent Auto 53.6 % (50-75); Platelet Count 317 X10^3/uL (150-400); Red Cell Distribution Width 15.5 % (11.6-14.8); White Blood Cell Count 10.3 X10^3/uL (4.5-11.0)
[2020-12-29 19:22] LABS: Alanine Aminotransferase 19 IU/L (<35); Albumin Globulin Ratio 1.5 (1.0-2.8); Alkaline Phosphatase 94 U/L (38-126); Aspartate Aminotransferase 21 IU/L (14-36); BUN Creatinine Ratio 18.5 (6-22); Bilirubin Total 0.2 mg/dL (0.2-1.3); Blood Urea Nitrogen 15 mg/dL (7-17); Calcium 9.3 mg/dL (8.4-10.2); Carbon Dioxide 28 mmol/L (22-32); Chloride 105 mmol/L (98-107); Estimated Glomerular Filt Rate > 60.0 mL/min (>60); Globulin 2.7 g/dL (1.7-4.1); Glucose 84 mg/dL (70-100); HEMOLYSIS < 15 (0-50); Potassium 3.7 mmol/L (3.4-5.1); Sodium 139 mmol/L (137-145); Total Protein 6.7 g/dL (6.3-8.2)
[2020-12-29] MEDS: DOXYCYCLINE HYCLATE 100 MG TABLET PO (19:47)
[2020-12-29 20:07] VITALS: BP 166/77; PULSE 70; RESP 18; TEMP 36.4; O2SAT 98
== END 2020-12-29 20:08 | disposition home or self-care (01) ==
PROVIDERS: Emergency Medicine; Emergency Provider Emergency Medicine; Family Provider Family Medicine; PCP Family Medicine
DX: J18.9 Pneumonia, unspecified organism (principal); Z20.822 Contact with and (suspected) exposure to COVID-19
CPT/HCPCS: 36415; 71046; 80053; 85025; 87635; 99283; 99284; C9803

== ENCOUNTER 2021-05-03 18:28 | Emergency (ER) | payer MEDICARE, OTHER, SELFPAY ==
[2020-03-20 10:23] VITALS: BMI 40.2
[2021-05-03 18:37] VITALS: BP 160/80; PULSE 102; RESP 24; TEMP 36.5; O2SAT 97
--- NOTE | 2021-05-03 18:40 | DI.RAD.S_ITS ---
PROCEDURE: XR CHEST 2V INDICATIONS: pain after sneezing TECHNIQUE: 2 views of the chest were acquired. COMPARISON: [facility], CR, XR CHEST 1V, 04/30/2020, 13:42. [facility], CR, XR CHEST 2V, 12/29/2020, 17:44. FINDINGS: Surgical changes and devices: None. Lungs and pleura: Lungs are clear. No pleural effusions or pneumothorax. There is left basilar atelectasis. Mediastinum: Mediastinal contours are normal. Heart size is enlarged. Bones and chest wall: No suspicious bony abnormalities. Soft tissues appear unremarkable. IMPRESSION: 1. Stable cardiomegaly. 2. Platelike atelectasis in the left lung base is chronic. 3. No acute abnormality. Dictated by: Jame Gutierrez M.D. on 05/03/2021 at 19:06 Approved by: Jame Gutierrez M.D. on 05/03/2021 at 19:08
--- NOTE | 2021-05-03 20:20 | ED_ITS ---
HPI - Chest Pain General Chief Complaint: Chest Pain Stated Complaint: Sneezed, Rt Sided Rib Pain Time Seen by Provider: 05/03/21 20:08 Source: patient Mode of arrival: Ambulatory History of Present Illness HPI narrative: 45-year-old female nonsmoker with history of MS presents with a chief complaint of a sudden onset severe, sharp and stabbing right-sided rib pain that occurred while sneezing a day or 2 ago. She states that she has a sharp and stabbing reproducible pain that is worse with deep breath, motion and palpation. She has had no fever or chills and denies dizziness, weakness or lightheadedness. She denies nausea, vomiting or diarrhea. She does have an abnormal dry, scaling rash in her upper back but this is distant from where she is having pain. She went to an outside facility yesterday and had a large, thorough evaluation including labs, imaging and was sent home with pain medications. Related Data Home Medications Medication Instructions Recorded Confirmed atorvastatin 10 mg tablet 1 tab PO QPM 02/07/18 11/18/19 baclofen 10 mg tablet 1 - 2 tab PO TID PRN 02/07/18 11/18/19 diazepam 10 mg tablet 1 tab PO Q8H PRN 02/07/18 11/18/19 eletriptan 40 mg tablet 1 tab PO PRN PRN 02/07/18 11/18/19 fluconazole 100 mg tablet 1 tab PO PRN PRN 02/07/18 11/18/19 gabapentin 300 mg capsule 300 mg PO QID 02/07/18 11/18/19 levothyroxine 200 mcg tablet 200 mcg PO DAILY 02/07/18 11/18/19 meclizine 12.5 mg tablet 12.5 mg PO PRN PRN 02/07/18 11/18/19 topiramate 100 mg tablet 100 mg PO DAILY 02/07/18 11/18/19 triamcinolone acetonide 0.1 % See Rx Instructions .ROUTE .COMPLEX 02/07/18 11/18/19 topical cream zolpidem 5 mg tablet 5 mg PO BEDTIME PRN 02/07/18 11/18/19 insulin aspart U-100 100 unit/mL See Rx Instructions .ROUTE .COMPLEX 08/20/18 11/18/19 (3 mL) subcutaneous pen milnacipran 100 mg tablet 100 mg PO BID 08/20/18 11/18/19 promethazine 12.5 mg tablet 25 mg PO Q6H PRN 08/20/18 11/18/19 aspirin 325 mg tablet 325 mg PO DAILY 08/13/19 11/18/19 levocetirizine 5 mg tablet 5 mg PO DAILY 08/13/19 11/18/19 losartan 25 mg tablet 25 mg PO DAILY 08/13/19 11/18/19 pioglitazone 15 mg tablet (Actos) 15 mg PO DAILY 08/13/19 11/18/19 ibuprofen 800 mg tablet 600 mg PO Q8H PRN 08/14/19 11/18/19 trazodone 50 mg tablet 50 mg PO BEDTIME 08/14/19 11/18/19 potassium chloride 10 mEq 30 meq PO DAILY 11/18/19 11/18/19 tablet,extended release Previous Rx's Medication Instructions Recorded albuterol sulfate 90 mcg/actuation 2 puff INHALATION Q4-6H PRN #8.5 08/03/19 aerosol inhaler gram prednisone 20 mg tablet See Rx Instructions .ROUTE 11/21/19 .COMPLEX #17 tab clindamycin HCl 300 mg capsule 300 mg PO Q6H #40 cap 04/13/20 fluconazole 150 mg tablet 150 mg PO Q3D #2 tab 04/13/20 (Diflucan) ondansetron HCl 4 mg tablet 4 mg PO Q6H PRN #10 tab 04/13/20 (Zofran) cefpodoxime 200 mg tablet 200 mg PO BID #14 tab 12/29/20 doxycycline hyclate 100 mg capsule 100 mg PO BID #14 cap 12/29/20 fluconazole 150 mg tablet 150 mg PO Q3D #2 tab 12/29/20 (Diflucan) oxycodone 5 mg tablet 5 mg PO Q4-6H PRN #10 tab 05/03/21 Allergies Allergy/AdvReac Type Severity Reaction Status Date / Time codeine Allergy Severe Rash Verified 04/20/21 11:19 lovastatin [From Advicor] Allergy Severe Anaphylaxis Verified 04/20/21 11:19 niacin [From Advicor] Allergy Severe Anaphylaxis Verified 04/20/21 11:19 pseudoephedrine Allergy Severe Anaphylaxis Verified 04/20/21 11:19 red (food color) Allergy Severe Anaphylaxis Verified 04/20/21 11:19 Penicillins Allergy Intermediate Rash Verified 04/20/21 11:19 mushroom Allergy Unknown Verified 04/20/21 11:19 ampicillin Allergy Rash Verified 04/20/21 11:19 erythromycin base Allergy Verified 04/20/21 11:19 glatiramer (copolymer 1) Allergy Verified 04/20/21 11:19 interferon beta-1a Allergy itching Verified 04/20/21 11:19 and rash Iodinated Contrast Media Allergy Verified 04/20/21 11:19 lisinopril Allergy Kidneys Verified 04/20/21 11:19 shut down metformin Allergy Gastrointestinal Verified 04/20/21 11:19 Upset Sulfa (Sulfonamide Allergy Verified 04/20/21 11:19 Antibiotics) artificial sweetners Allergy Uncoded 04/13/20 18:10 barium Allergy Uncoded 04/13/20 18:10 Review of Systems Review of Systems Narrative: GENERAL: Denies chills, fatigue, malaise, fever, sweats. HEENT: Denies sinus pain, ear pain, sore throat, difficulty swallowing, dizziness. RESPIRATORY: See HPI CARDIOVASCULAR: See HPI GASTROINTESTINAL: Denies nausea, vomiting, abdominal pain, diarrhea, constipation, melena. : Denies dysuria, frequency, incontinence, hematuria, urinary retention. MUSCULOSKELETAL: denies weakness, joint pain, or bony pain SKIN: Denies rash, skin lesions, or other NEUROLOGIC: Denies weakness, headache, numbness, change in speech, confusion, seizures, incoordination. PSYCHIATRIC: No concerning psychosocial issues. 12 point review of systems is negative except for those stated above Patient History Medical History Chronically low serum potassium Diabetes Diabetic gastroparesis Dislocation of left patella Fatigue Fibromyalgia History of shingles Hyperlipidemia Hypothyroidism Low vitamin D level Multiple sclerosis Obstructive sleep apnea syndrome Osteoarthritis PCOS (polycystic ovarian syndrome) Raynauds disease Type 2 diabetes mellitus Surgical History History of repair of anterior cruciate ligament of right knee Hx of cholecystectomy Family History Family/Other Loud snoring Sleep apnea Depression Dementia Father Loud snoring Sleep apnea Insomnia Restless legs syndrome Obesity Hypertension Heart disease Depression Bipolar disorder Mother Insomnia Hypertension Heart disease Depression Anxiety Family/Other Loud snoring Obesity Hypertension Depression Anxiety Social History marital status: household members: spouse and children Smoking Status: Never smoker alcohol intake: current Smoking Status: Never smoker alcohol intake frequency: a few times a month Substance Use Type: does not use Exam Narrative Exam Narrative: GENERAL: [45 year old patient appears stated age. Well-developed patient, in mild distress. Rubbing the right side of her chest HEAD: Atraumatic. Normocephalic. EYES: Pupils equal round and reactive. Extraocular motions intact. No scleral icterus. No injection or drainage. ENT: Nose without bleeding, purulent drainage. Throat without erythema, tonsillar hypertrophy or exudate. Airway patent. NECK: Trachea midline. Non tender CARDIOVASCULAR: Regular rate and rhythm without murmurs, gallops, or rubs. Right lateral ribs tender to palpate, no crepitance, edema, popping or clicking noted. Skin evaluated and no rash noted, shingles considered but not appreciated on exam. RESPIRATORY: Clear to auscultation. Breath sounds equal bilaterally. No wheezes, rales, or rhonchi. GASTROINTESTINAL: Abdomen soft, non-tender, nondistended. EXTREMITIES: No edema or joint tenderness. BACK: Nontender without deformity or crepitance. No flank tenderness. NEURO: AOx3. SKIN: There is a small patch of dry and scaling skin in her right upper back just lateral to midline approximately 2 x 2 cm. This is nontender, not itchy and distant from her symptoms. No rash or erythema of visible areas Initial Vital Signs Initial Vital Signs: Vital Signs Temperature 97.7 F 05/03/21 18:37 Pulse Rate 102 H 05/03/21 18:37 Respiratory Rate 24 05/03/21 18:37 Blood Pressure 160/80 H 05/03/21 18:37 Pulse Oximetry 97 05/03/21 18:37 Course Orders Ordered: Discontinued Medications Diazepam (Diazepam 10 Mg/2 Ml Syringe) 5 mg IM NOW ONE Stop: 05/03/21 20:51 Last Admin: 05/03/21 20:55 Dose: 5 mg Documented by: JOHAN Vital Signs Vital signs: Vital Signs - 8 hr 05/03/21 18:37 Temperature 97.7 F Pulse Rate 102 H Respiratory Rate 24 Blood Pressure 160/80 H Pulse Oximetry 97 MDM - Chest Pain Imaging Data Chest x-ray: Radiologist's Impression: [address] [address] XRay Report Signed Patient: Josie Silvestre MR#: [id number] : 1975 Acct:[id number] Age/Sex: 45 / F Date of Service: 05/03/21 Loc: ED Accession Number: [id number] ?? Procedure: XR chest 2V Ordering Provider: Brandon Lr D.O. PROCEDURE:? XR CHEST 2V ? INDICATIONS:? pain after sneezing ? TECHNIQUE:? 2 views of the chest were acquired.? ? COMPARISON:? [facility], CR, XR CHEST 1V, 04/30/2020, 13:42.? [facility], CR, XR CHEST 2V, 12/29/2020, 17:44. ? FINDINGS:? ? Surgical changes and devices:? None.? ? Lungs and pleura:? Lungs are clear.? No pleural effusions or pneumothorax.? There is left basilar atelectasis. ? Mediastinum:? Mediastinal contours are normal.? Heart size is enlarged. ? Bones and chest wall:? No suspicious bony abnormalities.? Soft tissues appear unremarkable.? ? IMPRESSION:? 1. Stable cardiomegaly. 2. Platelike atelectasis in the left lung base is chronic. 3. No acute abnormality.? ? ? Dictated by: Jame Gutierrez M.D. on 05/03/2021 at 19:06 ? ? Approved by: Jame Gutierrez M.D. on 05/03/2021 at 19:08 ? [facility] Narrative Medical decision making narrative: Patient has very reassuring history and physical exam. A sharp and stabbing reproducible and isolated right-sided chest pain that started along with sneeze. Vital signs are stable, chest x-ray shows no pneumothorax or rib fracture. Shingles considered but there are is no calf classic rash, numbness or tingling in the distribution of a single dermatome. Patient has stable vitals, no hemoptysis, other diagnoses considered including pulmonary embolism which is thought as unlikely given her history and physical. Multiple causes of chest pain considered including [place], PE, pneumothorax, pneumonia, aortic dissection, and pleurisy. Patient reports no diaphoresis, no provocation with exertion, and no vomiting, nor excessive fatigue your exercise intolerance. Labs yesterday were largely very reassuring, there is no indication to repeat these today. Return precautions have been discussed and questions answered to her apparent satisfaction Discharge Plan Departure Patient Disposition: Home Clinical Impression: Rib pain Instructions: DI for Atypical Chest Pain Activity Restrictions/Additional Instructions: *You have been diagnosed with [right-sided chest wall and rib pain. Your history and physical exam are very reassuring, as we discussed your story is not convincing for heart attack, shingles or other severe diagnosis. Your x-ray shows no obvious abnormality with your rib or underlying lung. *What to do: *Please continue to take your regular medications as directed. Including the muscle relaxers which you already have and the anti-inflammatory that was prescribed yesterday [ x] New medication prescriptions sent to your pharmacy: [[facility] ] [ ] New medication written as a paper prescription [ ] No new medications given *Please follow up with your primary care provider in 2-3 days, call for an appointment. Let them know you were seen in the Emergency Department and that we ask that you be seen in follow up. We will electronically transmit a record of today's note if your PCP is in our system *If you do not have a primary care provider please contact the [facility] Resource line at [phone]. They will ask some questions about your medical history and help get you set up with a doctor in the community. *Return to Emergency Department if you should have any new, worsening or concerning symptoms, such as [fever greater than 101 F, shaking chills, worsening pain, persistent vomiting or other bothersome symptoms] You have been prescribed a short course of narcotic medications. These are potentially dangerous and addictive medications that should be used carefully. While on these medications you cannot drive or operate heavy machinery. Additionally, you cannot sign legal documents or perform any duties such as this. Many people get constipated on narcotic medications so it would be advisable to discuss stool softeners with the pharmacist when you pickle sorter your prescription. Please understand that we cannot provide further refills of narcotics or controlled substances through the ED and your pain management will need to be through your Primary Care Provider Prescriptions: New oxycodone 5 mg tablet 5 mg PO Q4-6H PRN (Reason: pain) Qty: 10 0RF No Action clindamycin HCl 300 mg capsule 300 mg PO Q6H Qty: 40 0RF ondansetron HCl [Zofran] 4 mg tablet 4 mg PO Q6H PRN (Reason: nausea and vomiting) Qty: 10 0RF fluconazole [Diflucan] 150 mg tablet 150 mg PO Q3D Qty: 2 0RF Rx Instructions: may repeat second dose 72 hrs after first dose if symptoms persist atorvastatin 10 mg tablet 1 tab PO QPM 0RF baclofen 10 mg tablet 1 - 2 tab PO TID PRN (Reason: Pain (Scale Score 1-3)) 0RF diazepam 10 mg tablet 1 tab PO Q8H PRN (Reason: Spasms) 0RF fluconazole 100 mg tablet 1 tab PO PRN PRN (Reason: Rash) 0RF meclizine 12.5 mg tablet 12.5 mg PO PRN PRN (Reason: Vertigo) 0RF gabapentin 300 mg capsule 300 mg PO QID 0RF levothyroxine 200 mcg tablet 200 mcg PO DAILY 0RF topiramate 100 mg tablet 100 mg PO DAILY 0RF eletriptan 40 mg tablet 1 tab PO PRN PRN (Reason: Migraine Headache) 0RF Label Comments: TK 1 T PO PRN FOR MIGRAINE MAY REPEAT DOSE IN 2 HOURS. MAX DOSE OF 2 TS PER 24 HOURS triamcinolone acetonide 0.1 % cream See Rx Instructions .ROUTE .COMPLEX 0RF Rx Instructions: topical to affected skin areas zolpidem 5 mg tablet 5 mg PO BEDTIME PRN (Reason: Insomnia) 0RF Label Comments: TK 1 T PO AT NIGHT PRF INSOMNIA promethazine 12.5 mg tablet 25 mg PO Q6H PRN (Reason: Nausea And Vomiting) 0RF insulin aspart U-100 100 unit/mL (3 mL) insulin pen See Rx Instructions .ROUTE .COMPLEX 0RF Label Comments: ADM 30 UNI SC TID WC Rx Instructions: has insulin pump. takes 1 unit of insulin per every 2 carbs. milnacipran 100 mg tablet 100 mg PO BID 0RF albuterol sulfate 90 mcg/actuation HFA aerosol inhaler 2 puff INHALATION Q4-6H PRN (Reason: shortness of breath or wheezing) Qty: 8.5 0RF Rx Instructions: use with spacer aspirin 325 mg Tablet 325 mg PO DAILY 0RF losartan 25 mg Tablet 25 mg PO DAILY 0RF levocetirizine 5 mg Tablet 5 mg PO DAILY 0RF pioglitazone [Actos] 15 mg Tablet 15 mg PO DAILY 0RF ibuprofen 800 mg tablet 600 mg PO Q8H PRN (Reason: pain) 0RF trazodone 50 mg Tablet 50 mg PO BEDTIME 0RF potassium chloride 10 mEq Tablet Extended Release 30 meq PO DAILY 0RF prednisone 20 mg tablet See Rx Instructions .ROUTE .COMPLEX Qty: 17 0RF Rx Instructions: Take 100 mg day 1, 80 mg day 2, 60 mg day 3, 40 mg day 4, 20 mg day 5-6. 10 mg day 6-7. cefpodoxime 200 mg tablet 200 mg PO BID Qty: 14 0RF Rx Instructions: must administer with a meal/food doxycycline hyclate 100 mg capsule 100 mg PO BID Qty: 14 0RF fluconazole [Diflucan] 150 mg tablet 150 mg PO Q3D Qty: 2 0RF Referrals: Cedric Noel DO [Primary Care Provider] -
[2021-05-03] MEDS: diazePAM 10 MG/2 ML SYRINGE 5 MG IM (20:55)
== END 2021-05-03 21:01 | disposition home or self-care (01) ==
PROVIDERS: Emergency Provider Emergency Medicine; Family Provider Family Medicine; PCP Family Medicine
DX: R07.89 Other chest pain (principal); R07.81 Pleurodynia
CPT/HCPCS: 71046; 96372; 99283; J3360

== ENCOUNTER 2021-06-05 13:45 | Emergency (ER) | payer MEDICARE, OTHER, SELFPAY ==
[2020-03-20 10:23] VITALS: BMI 40.2
[2021-06-05 14:16] VITALS: BP 200/93; PULSE 108; RESP 18; TEMP 37.1; O2SAT 97
--- NOTE | 2021-06-05 14:21 | ED_ITS ---
HPI - Skin/Abscess/Foreign Bdy <Elaine Varela, [facility] - Last Filed: 06/05/21 17:54> General Chief complaint: Wound/Laceration Stated complaint: Has sore on stomach- diabetic Time Seen by Provider: 06/05/21 14:20 History of Present Illness HPI narrative: 45-year-old female nonsmoker with history of MS presents with a chief complaint Of a skin tear/ wound on her right abdomen which has been there for 3 days. Patient denies any feeling of illness, fever, abdominal pain, nausea vomiting swelling, surrounding redness, or any other wounds. Patient states that she took oxycodone this morning for her pain, she takes Tylenol or ibuprofen as needed for her pain symptoms at home. She did not want to have an infection due to her longstanding diabetic history. She is on multiple medications with multiple allergies. She states that her blood sugars have been well under control, she is tolerating p.o. intake without any difficulty, she denies any other concerns at this time. Patient is requesting a pain medication prescription. Related Data Home Medications Medication Instructions Recorded Confirmed atorvastatin 10 mg tablet 1 tab PO QPM 02/07/18 11/18/19 baclofen 10 mg tablet 1 - 2 tab PO TID PRN 02/07/18 11/18/19 diazepam 10 mg tablet 1 tab PO Q8H PRN 02/07/18 11/18/19 eletriptan 40 mg tablet 1 tab PO PRN PRN 02/07/18 11/18/19 fluconazole 100 mg tablet 1 tab PO PRN PRN 02/07/18 11/18/19 gabapentin 300 mg capsule 300 mg PO QID 02/07/18 11/18/19 levothyroxine 200 mcg tablet 200 mcg PO DAILY 02/07/18 11/18/19 meclizine 12.5 mg tablet 12.5 mg PO PRN PRN 02/07/18 11/18/19 topiramate 100 mg tablet 100 mg PO DAILY 02/07/18 11/18/19 triamcinolone acetonide 0.1 % See Rx Instructions .ROUTE .COMPLEX 02/07/18 11/18/19 topical cream zolpidem 5 mg tablet 5 mg PO BEDTIME PRN 02/07/18 11/18/19 insulin aspart U-100 100 unit/mL See Rx Instructions .ROUTE .COMPLEX 08/20/18 11/18/19 (3 mL) subcutaneous pen milnacipran 100 mg tablet 100 mg PO BID 08/20/18 11/18/19 promethazine 12.5 mg tablet 25 mg PO Q6H PRN 08/20/18 11/18/19 aspirin 325 mg tablet 325 mg PO DAILY 08/13/19 11/18/19 levocetirizine 5 mg tablet 5 mg PO DAILY 08/13/19 11/18/19 losartan 25 mg tablet 25 mg PO DAILY 08/13/19 11/18/19 pioglitazone 15 mg tablet (Actos) 15 mg PO DAILY 08/13/19 11/18/19 ibuprofen 800 mg tablet 600 mg PO Q8H PRN 08/14/19 11/18/19 trazodone 50 mg tablet 50 mg PO BEDTIME 08/14/19 11/18/19 potassium chloride 10 mEq 30 meq PO DAILY 11/18/19 11/18/19 tablet,extended release Previous Rx's Medication Instructions Recorded albuterol sulfate 90 mcg/actuation 2 puff INHALATION Q4-6H PRN #8.5 08/03/19 aerosol inhaler gram prednisone 20 mg tablet See Rx Instructions .ROUTE 11/21/19 .COMPLEX #17 tab clindamycin HCl 300 mg capsule 300 mg PO Q6H #40 cap 04/13/20 fluconazole 150 mg tablet 150 mg PO Q3D #2 tab 04/13/20 (Diflucan) ondansetron HCl 4 mg tablet 4 mg PO Q6H PRN #10 tab 04/13/20 (Zofran) cefpodoxime 200 mg tablet 200 mg PO BID #14 tab 12/29/20 doxycycline hyclate 100 mg capsule 100 mg PO BID #14 cap 12/29/20 fluconazole 150 mg tablet 150 mg PO Q3D #2 tab 12/29/20 (Diflucan) oxycodone 5 mg tablet 5 mg PO Q4-6H PRN #10 tab 05/03/21 oxycodone 5 mg tablet 5 mg PO BID PRN #10 tab 06/05/21 Allergies Allergy/AdvReac Type Severity Reaction Status Date / Time codeine Allergy Severe Rash Verified 04/20/21 11:19 lovastatin [From Advicor] Allergy Severe Anaphylaxis Verified 04/20/21 11:19 niacin [From Advicor] Allergy Severe Anaphylaxis Verified 04/20/21 11:19 pseudoephedrine Allergy Severe Anaphylaxis Verified 04/20/21 11:19 red (food color) Allergy Severe Anaphylaxis Verified 04/20/21 11:19 Penicillins Allergy Intermediate Rash Verified 04/20/21 11:19 mushroom Allergy Unknown Verified 04/20/21 11:19 ampicillin Allergy Rash Verified 04/20/21 11:19 erythromycin base Allergy Verified 04/20/21 11:19 glatiramer (copolymer 1) Allergy Verified 04/20/21 11:19 interferon beta-1a Allergy itching Verified 04/20/21 11:19 and rash Iodinated Contrast Media Allergy Verified 04/20/21 11:19 lisinopril Allergy Kidneys Verified 04/20/21 11:19 shut down metformin Allergy Gastrointestinal Verified 04/20/21 11:19 Upset Sulfa (Sulfonamide Allergy Verified 04/20/21 11:19 Antibiotics) artificial sweetners Allergy Uncoded 04/13/20 18:10 barium Allergy Uncoded 04/13/20 18:10 Review of Systems <GILSON Castaneda - Last Filed: 06/05/21 17:54> Review of Systems Narrative: General: denies fever, chills, malaise, sweats, fatigue Head/Neck: denies headache, neck pain, dizziness Eyes: denies visual changes, eye pain Cardio: denies chest pain, palpitations, edema Respiratory: denies dyspnea, cough, orthopnea GI: denies abdominal pain, nausea, vomiting, or diarrhea : denies dysuria, hematuria, urinary retention, frequency or incontinence MSK: denies joint pain, muscle weakness Skin: denies rash, itching, endorses skin lesion on right lower quadrant Neuro: denies numbness, tingling Patient History <GILSON Csataneda - Last Filed: 06/05/21 17:54> Medical History Chronically low serum potassium Diabetes Diabetic gastroparesis Dislocation of left patella Fatigue Fibromyalgia History of shingles Hyperlipidemia Hypothyroidism Low vitamin D level Multiple sclerosis Obstructive sleep apnea syndrome Osteoarthritis PCOS (polycystic ovarian syndrome) Raynauds disease Type 2 diabetes mellitus Surgical History History of repair of anterior cruciate ligament of right knee Hx of cholecystectomy Family History Family/Other Loud snoring Sleep apnea Depression Dementia Father Loud snoring Sleep apnea Insomnia Restless legs syndrome Obesity Hypertension Heart disease Depression Bipolar disorder Mother Insomnia Hypertension Heart disease Depression Anxiety Family/Other Loud snoring Obesity Hypertension Depression Anxiety Social History marital status: household members: spouse and children Smoking Status: Never smoker alcohol intake: current Smoking Status: Never smoker alcohol intake frequency: a few times a month Substance Use Type: does not use Exam <GILSON Castaneda - Last Filed: 06/05/21 17:54> Narrative Exam Narrative: Independently reviewed vitals signs and nursing notes. General: cooperative, comfortable, in no acute distress, well developed and well groomed, obese Head: atraumatic, symmetrical facial expressions Neck: supple, atraumatic, without lymphadenopathy. Eyes: pupils equal round and reactive, EOMI Nose: nares patent, no rhinorrhea Mouth/Throat: uvula midline, moist mucus membranes Cardiovascular: regular rate and rhythm, no peripheral edema, warm extremities, no dependent edema, afebrile Respiratory: normal effort, able to speak in complete sentences, no audible wheezing, stridor, or rales. No retractions or tachypnea. GI: abdomen soft, obese, nontender to palpation, nondistended, no masses, no exquisite tenderness with exam, without guarding or rebound. MSK: moves all extremities, ambulatory w/steady gait, neurovascularly intact, no weakness Skin: brisk capillary refill, no rash, no erythema, will small less than 1 cm round lesion on her right lower quadrant, appears to have a skin tear related to Band-Aids around it. Mupirocin was applied, a Telfa and paper tape was applied around this. Patient was given supplies for home. Neuro: normal speech and cognition, A&O x3, normal tone Psych: mental status is grossly normal, congruent mood, normal affect, pleasant and cooperative Initial Vital Signs Initial Vital Signs: Vital Signs Temperature 98.8 F 06/05/21 14:16 Pulse Rate 108 H 06/05/21 14:16 Respiratory Rate 18 06/05/21 14:16 Blood Pressure 200/93 H 06/05/21 14:16 Pulse Oximetry 97 06/05/21 14:16 Course <GILSON Castaneda - Last Filed: 06/05/21 17:54> Orders Ordered: Discontinued Medications Mupirocin (Mupirocin 22 Gm Oint) 1 applic TOP BID YULIANA Last Admin: 06/05/21 14:59 Dose: 1 applic Documented by: AUDREY Oxycodone HCl (Oxycodone Ir 5 Mg Tablet) 5 mg PO NOW ONE Stop: 06/05/21 14:52 Last Admin: 06/05/21 15:04 Dose: Not Given Documented by: AUDREY Vital Signs Vital signs: Vital Signs - 8 hr 06/05/21 14:16 06/05/21 15:34 Temperature 98.8 F Pulse Rate 108 H 112 H Respiratory Rate 18 24 Blood Pressure 200/93 H 185/89 H Pulse Oximetry 97 98 MDM - Skin/Abscess/Foreign Bdy <GILSON Castaneda - Last Filed: 06/05/21 17:54> MDM Narrative Medical decision making narrative: 46-year-old female presents to the emergency department with a right lower quadrant abdominal lesion and concern for infection. Patient is a brittle diabetic, states that this lesion has been here for 3 days, she is unable to see it due to her anatomy. She has been applying Band-Aids but did not know if it was infected or not. Patient has a history of impetigo. This does not appear to be cellulitis at the time, patient was given mupirocin ointment, Telfa dressing, nonstick dressing. Encouraged her to have dressing changes twice a day, keep it clean, prevent any tearing of the skin. Follow-up with her primary doctor she has any worsening of her symptoms, and have strict return precautions to come back to the emergency department for any redness, swelling, worsening, fever, or feeling ill. Patient is appropriate and amenable to discharge home. Vital signs are stable on repeat examination is unremarkable. Patient has been informed of results. Patient has been given strict return to ER precautions for any new or worsening symptoms. Patient understands to follow up closely with outpatient providers as instructed. Patient understands plan and agrees to discharge home. All questions and concerns answered at this time. Patient is requesting a prescription for opiate pain medication for this, she told me that she has some a home but now stating that she does not. She was given 10 pills of oxycodone and encouraged to follow up with her primary care provider. Discharge Plan Departure Patient Disposition: Home Clinical Impression: Skin tear Instructions: DI for Wound Infection Activity Restrictions/Additional Instructions: *You have been diagnosed with a skin lesion which is open, please apply this antibiotic ointment twice a day, apply nonstick gauze and a weight hold on with paper tape. Please take a picture of it daily to evaluated 5th getting better or worse. Please try to avoid it rubbing on any clothing, keep a dressing over it to keep her protected but not a banding as these have torn some of the skin. Please follow-up with your regular doctor if this is not improving in the next 1-2 days. If you have any worsening of it, fever, surrounding redness or abnormal drainage and your concerned your getting sick, please come back to the emergency department immediately. Thank you for trusting us with the care, keep close eye on your blood sugar, stay hydrated, and let your primary care provider know that you have this wound. *What to do: *Please continue to take your regular medications as directed. [ ] New medication prescriptions sent to your pharmacy: [ ] [ ] New medication written as a paper prescription [x ] No new medications given *Please follow up with your primary care provider in 2-3 days, call for an appointment. Let them know you were seen in the Emergency Department and that we asked that you be seen for follow-up. We will electronically transmit a record of today's note if your PCP is in our system *If you do not have a primary care provider please contact [phone] to establish care with one of the [facility] primary care providers. *Return to Emergency Department if you should have any new, worsening or concerning symptoms, such as [fever greater than 101F, chills, worsening pain, persistent vomiting or other bothersome symptoms] Prescriptions: New oxycodone 5 mg tablet 5 mg PO BID PRN (Reason: pain) Qty: 10 0RF No Action clindamycin HCl 300 mg capsule 300 mg PO Q6H Qty: 40 0RF ondansetron HCl [Zofran] 4 mg tablet 4 mg PO Q6H PRN (Reason: nausea and vomiting) Qty: 10 0RF fluconazole [Diflucan] 150 mg tablet 150 mg PO Q3D Qty: 2 0RF Rx Instructions: may repeat second dose 72 hrs after first dose if symptoms persist oxycodone 5 mg tablet 5 mg PO Q4-6H PRN (Reason: pain) Qty: 10 0RF atorvastatin 10 mg tablet 1 tab PO QPM 0RF baclofen 10 mg tablet 1 - 2 tab PO TID PRN (Reason: Pain (Scale Score 1-3)) 0RF diazepam 10 mg tablet 1 tab PO Q8H PRN (Reason: Spasms) 0RF fluconazole 100 mg tablet 1 tab PO PRN PRN (Reason: Rash) 0RF meclizine 12.5 mg tablet 12.5 mg PO PRN PRN (Reason: Vertigo) 0RF gabapentin 300 mg capsule 300 mg PO QID 0RF levothyroxine 200 mcg tablet 200 mcg PO DAILY 0RF topiramate 100 mg tablet 100 mg PO DAILY 0RF eletriptan 40 mg tablet 1 tab PO PRN PRN (Reason: Migraine Headache) 0RF Label Comments: TK 1 T PO PRN FOR MIGRAINE MAY REPEAT DOSE IN 2 HOURS. MAX DOSE OF 2 TS PER 24 HOURS triamcinolone acetonide 0.1 % cream See Rx Instructions .ROUTE .COMPLEX 0RF Rx Instructions: topical to affected skin areas zolpidem 5 mg tablet 5 mg PO BEDTIME PRN (Reason: Insomnia) 0RF Label Comments: TK 1 T PO AT NIGHT PRF INSOMNIA promethazine 12.5 mg tablet 25 mg PO Q6H PRN (Reason: Nausea And Vomiting) 0RF insulin aspart U-100 100 unit/mL (3 mL) insulin pen See Rx Instructions .ROUTE .COMPLEX 0RF Label Comments: ADM 30 UNI SC TID Rx Instructions: has insulin pump. takes 1 unit of insulin per every 2 carbs. milnacipran 100 mg tablet 100 mg PO BID 0RF albuterol sulfate 90 mcg/actuation HFA aerosol inhaler 2 puff INHALATION Q4-6H PRN (Reason: shortness of breath or wheezing) Qty: 8.5 0RF Rx Instructions: use with spacer aspirin 325 mg Tablet 325 mg PO DAILY 0RF losartan 25 mg Tablet 25 mg PO DAILY 0RF levocetirizine 5 mg Tablet 5 mg PO DAILY 0RF pioglitazone [Actos] 15 mg Tablet 15 mg PO DAILY 0RF ibuprofen 800 mg tablet 600 mg PO Q8H PRN (Reason: pain) 0RF trazodone 50 mg Tablet 50 mg PO BEDTIME 0RF potassium chloride 10 mEq Tablet Extended Release 30 meq PO DAILY 0RF prednisone 20 mg tablet See Rx Instructions .ROUTE .COMPLEX Qty: 17 0RF Rx Instructions: Take 100 mg day 1, 80 mg day 2, 60 mg day 3, 40 mg day 4, 20 mg day 5-6. 10 mg day 6-7. cefpodoxime 200 mg tablet 200 mg PO BID Qty: 14 0RF Rx Instructions: must administer with a meal/food doxycycline hyclate 100 mg capsule 100 mg PO BID Qty: 14 0RF fluconazole [Diflucan] 150 mg tablet 150 mg PO Q3D Qty: 2 0RF Referrals: Cedric Noel DO [Primary Care Provider] -
[2021-06-05] MEDS: MUPIROCIN 22 GM OINT 1 APPLIC TOP (14:59)
[2021-06-05 15:34] VITALS: BP 185/89; PULSE 112; RESP 24; O2SAT 98
== END 2021-06-05 15:35 | disposition home or self-care (01) ==
PROVIDERS: Emergency Provider Nurse Practitioner Critical Care Medicine; Family Provider Family Medicine; PCP Family Medicine
DX: S31.103A Unspecified open wound of abdominal wall, right lower quadrant without penetration into peritoneal cavity, initial encounter (principal); X58.XXXA Exposure to other specified factors, initial encounter
CPT/HCPCS: 99282

== ENCOUNTER 2021-06-12 12:26 | Emergency (ER) | payer MEDICARE, OTHER, SELFPAY ==
[2020-03-20 10:23] VITALS: BMI 40.2
[2021-06-12] VITALS (15 sets, daily range): BP systolic 112–156; BP diastolic 61–95; PULSE 99–112; RESP 14–25; TEMP 36.6–36.7; O2SAT 94–98; BMI 41.5
[2021-06-12] MEDS: SODIUM CHLORIDE 0.9% 1,000 ML 1000 ML IV (13:15)
[2021-06-12] MEDS: ONDANSETRON 4 MG/2 ML INJ IV (13:15)
[2021-06-12 13:16] LABS: Add Manual Diff / Slide Review NO; Basophils Absolute Auto 200 /uL (0-100); Basophils Percent Auto 1.4 % (0-2); Eosinophils Absolute Auto 200 /uL (0-450); Eosinophils Percent Auto 2.2 % (2-4); Hematocrit 44.1 % (36-46); Hemoglobin 14.6 g/dL (12.0-16.0); Lymphocytes Absolute Auto 3800 /uL (1100-4500); Lymphocytes Percent Auto 34.5 % (25-40); Mean Corpuscular Hemoglobin 27.1 PG (26-34); Monocytes Absolute Auto 800 /uL (0-900); Neutrophils Absolute Auto 6100 /uL (1500-7000); Neutrophils Percent Auto 54.9 % (50-75); Platelet Count 304 X10^3/uL (150-400); Red Blood Cell Count 5.38 X10^6/uL (4.0-5.2); Red Cell Distribution Width 15.3 % (11.6-14.8); White Blood Cell Count 11.2 X10^3/uL (4.5-11.0)
[2021-06-12 13:26] LABS: Alanine Aminotransferase 28 IU/L (<35); Albumin 4.5 g/dL (3.5-5.0); Albumin Globulin Ratio 1.4 (1.0-2.8); Alkaline Phosphatase 71 U/L (38-126); Aspartate Aminotransferase 32 IU/L (14-36); BUN Creatinine Ratio 10.1 (6-22); Bilirubin Total 0.4 mg/dL (0.2-1.3); Blood Urea Nitrogen 11 mg/dL (7-17); Calcium 9.4 mg/dL (8.4-10.2); Carbon Dioxide 28 mmol/L (22-32); Chloride 101 mmol/L (98-107); Globulin 3.2 g/dL (1.7-4.1); Glucose 185 mg/dL (70-100); HEMOLYSIS < 15 (0-50); Lipase 25 U/L (23-300); Sodium 137 mmol/L (137-145); Total Protein 7.7 g/dL (6.3-8.2)
[2021-06-12 13:28] LABS: Potassium 2.7 mmol/L (3.4-5.1)
[2021-06-12] MEDS: POTASSIUM CHLORIDE IN WATER 10 MEQ/100 ML PIGGYBACK 100 MEQ IV ×2 (13:52→15:01)
--- NOTE | 2021-06-12 13:56 | ED.NAVMDI ---
HPI - Nausea/Vomiting/Diarrhea <Elaine Varela [employer]ATOR - Last Filed: 06/12/21 17:35> General Chief complaint: Nausea/Vomiting/Diarrhea Stated complaint: N/V/D Time Seen by Provider: 06/12/21 12:57 Source: patient Mode of arrival: Wheelchair History of Present Illness HPI Narrative: Is a 46-year-old female with a history of MS, diabetes type 2 with insulin pump, who presents to the emergency department complaining of nausea, vomiting, and diarrhea related to her diabetes, gastroparesis, and history of GI issues. Patient was seen on 06/05/2021 by myself with a small skin tear on her right abdomen and also complained of nausea vomiting at that time. She was treated for her nausea and vomiting with fluids and anti emetics, given mupirocin ointment for her wound on her right abdomen which appears to be healing well at this time. She denies any recent fever, states that her insulin pump ran out this morning and her blood sugar went up into the 200s, she changed her palm, and this has resolved. She was concerned about electrolyte imbalances, states that she is out of Zofran and has not been taking her Reglan because she states it makes her feel weird. She denies any syncope, hypoglycemia, seizures, twitching or tremors, pain, or other complaint at this time. Related Data Home Medications Medication Instructions Recorded Confirmed atorvastatin 10 mg tablet 1 tab PO QPM 02/07/18 11/18/19 baclofen 10 mg tablet 1 - 2 tab PO TID PRN 02/07/18 11/18/19 diazepam 10 mg tablet 1 tab PO Q8H PRN 02/07/18 11/18/19 eletriptan 40 mg tablet 1 tab PO PRN PRN 02/07/18 11/18/19 fluconazole 100 mg tablet 1 tab PO PRN PRN 02/07/18 11/18/19 gabapentin 300 mg capsule 300 mg PO QID 02/07/18 11/18/19 levothyroxine 200 mcg tablet 200 mcg PO DAILY 02/07/18 11/18/19 meclizine 12.5 mg tablet 12.5 mg PO PRN PRN 02/07/18 11/18/19 topiramate 100 mg tablet 100 mg PO DAILY 02/07/18 11/18/19 triamcinolone acetonide 0.1 % See Rx Instructions .ROUTE .COMPLEX 02/07/18 11/18/19 topical cream zolpidem 5 mg tablet 5 mg PO BEDTIME PRN 02/07/18 11/18/19 insulin aspart U-100 100 unit/mL See Rx Instructions .ROUTE .COMPLEX 08/20/18 11/18/19 (3 mL) subcutaneous pen milnacipran 100 mg tablet 100 mg PO BID 08/20/18 11/18/19 promethazine 12.5 mg tablet 25 mg PO Q6H PRN 08/20/18 11/18/19 aspirin 325 mg tablet 325 mg PO DAILY 08/13/19 11/18/19 levocetirizine 5 mg tablet 5 mg PO DAILY 08/13/19 11/18/19 losartan 25 mg tablet 25 mg PO DAILY 08/13/19 11/18/19 pioglitazone 15 mg tablet (Actos) 15 mg PO DAILY 08/13/19 11/18/19 ibuprofen 800 mg tablet 600 mg PO Q8H PRN 08/14/19 11/18/19 trazodone 50 mg tablet 50 mg PO BEDTIME 08/14/19 11/18/19 potassium chloride 10 mEq 30 meq PO DAILY 11/18/19 11/18/19 tablet,extended release Previous Rx's Medication Instructions Recorded albuterol sulfate 90 mcg/actuation 2 puff INHALATION Q4-6H PRN #8.5 08/03/19 aerosol inhaler gram prednisone 20 mg tablet See Rx Instructions .ROUTE 11/21/19 .COMPLEX #17 tab clindamycin HCl 300 mg capsule 300 mg PO Q6H #40 cap 04/13/20 fluconazole 150 mg tablet 150 mg PO Q3D #2 tab 04/13/20 (Diflucan) ondansetron HCl 4 mg tablet 4 mg PO Q6H PRN #10 tab 04/13/20 (Zofran) cefpodoxime 200 mg tablet 200 mg PO BID #14 tab 12/29/20 doxycycline hyclate 100 mg capsule 100 mg PO BID #14 cap 12/29/20 fluconazole 150 mg tablet 150 mg PO Q3D #2 tab 12/29/20 (Diflucan) oxycodone 5 mg tablet 5 mg PO Q4-6H PRN #10 tab 05/03/21 oxycodone 5 mg tablet 5 mg PO BID PRN #10 tab 06/05/21 ondansetron 4 mg disintegrating 4 mg PO Q8H PRN #14 tab 06/12/21 tablet Allergies Allergy/AdvReac Type Severity Reaction Status Date / Time codeine Allergy Severe Rash Verified 06/12/21 12:46 lovastatin [From Advicor] Allergy Severe Anaphylaxis Verified 06/12/21 12:46 niacin [From Advicor] Allergy Severe Anaphylaxis Verified 06/12/21 12:46 pseudoephedrine Allergy Severe Anaphylaxis Verified 06/12/21 12:46 red (food color) Allergy Severe Anaphylaxis Verified 06/12/21 12:46 Penicillins Allergy Intermediate Rash Verified 06/12/21 12:46 mushroom Allergy Unknown Verified 06/12/21 12:46 ampicillin Allergy Rash Verified 06/12/21 12:46 barium iodide Allergy Verified 06/12/21 13:04 erythromycin base Allergy Verified 06/12/21 12:46 glatiramer (copolymer 1) Allergy Verified 06/12/21 12:46 interferon beta-1a Allergy itching Verified 06/12/21 12:46 and rash Iodinated Contrast Media Allergy Verified 06/12/21 12:46 lisinopril Allergy Kidneys Verified 06/12/21 12:46 shut down metformin Allergy Gastrointestinal Verified 06/12/21 12:46 Upset Sulfa (Sulfonamide Allergy Verified 06/12/21 12:46 Antibiotics) artificial sweetners Allergy Uncoded 04/13/20 18:10 Review of Systems <GILSON Castaneda - Last Filed: 06/12/21 17:35> Review of Systems Narrative: General: denies fever, chills Head/Neck: denies headache, neck pain Eyes: denies visual changes, eye pain Cardio: denies chest pain, palpitations Respiratory: denies shortness of breath, cough GI: denies abdominal pain, endorses nausea, vomiting, and diarrhea : denies dysuria, hematuria MSK: denies joint pain, muscle weakness Skin: denies rash, itching Neuro: denies numbness, tingling Patient History <GILSON Castaneda - Last Filed: 06/12/21 17:35> Medical History Chronically low serum potassium Diabetes Diabetic gastroparesis Dislocation of left patella Fatigue Fibromyalgia History of shingles Hyperlipidemia Hypothyroidism Low vitamin D level Multiple sclerosis Obstructive sleep apnea syndrome Osteoarthritis PCOS (polycystic ovarian syndrome) Raynauds disease Type 2 diabetes mellitus Surgical History History of repair of anterior cruciate ligament of right knee Hx of cholecystectomy Family History Family/Other Loud snoring Sleep apnea Depression Dementia Father Loud snoring Sleep apnea Insomnia Restless legs syndrome Obesity Hypertension Heart disease Depression Bipolar disorder Mother Insomnia Hypertension Heart disease Depression Anxiety Family/Other Loud snoring Obesity Hypertension Depression Anxiety Social History marital status: household members: spouse and children Smoking Status: Never smoker alcohol intake: current Smoking Status: Never smoker alcohol intake frequency: a few times a month Substance Use Type: does not use Exam <GILSON Castaneda - Last Filed: 06/12/21 17:35> Narrative Exam Narrative: Independently reviewed vitals signs and nursing notes. General: cooperative, comfortable, in no acute distress, well developed and well groomed, obese Head: atraumatic, symmetrical facial expressions Neck: supple, atraumatic, without lymphadenopathy. Eyes: pupils equal round and reactive, EOMI, conjunctiva normal Nose: nares patent, no rhinorrhea Mouth/Throat: uvula midline, moist mucus membranes Cardiovascular: regular rate and rhythm, no peripheral edema, warm extremities Respiratory: normal effort, able to speak in complete sentences, no audible wheezing, stridor, or rales. No retractions or tachypnea. GI: abdomen soft, nontender to palpation, nondistended, no masses, no exquisite tenderness with exam, without guarding or rebound. MSK: moves all extremities, ambulatory w/steady gait, neurovascularly intact, no weakness Skin: brisk capillary refill, no rash, no erythema, small less than 0.5 cm skin tear on right lower quadrant appears to be healing without any signs of infection, no erythema, discharge, edema., no fluctuance Neuro: normal speech and cognition, A&O x3, normal tone Psych: mental status is grossly normal, congruent mood, normal affect, pleasant and cooperative Initial Vital Signs Initial Vital Signs: Vital Signs Temperature 98.1 F 06/12/21 12:42 Pulse Rate 112 H 06/12/21 12:42 Respiratory Rate 22 06/12/21 12:42 Blood Pressure 156/95 H 06/12/21 12:42 Pulse Oximetry 98 06/12/21 12:42 <Vesna Dewey DO - Last Filed: 06/12/21 18:01> Initial Vital Signs Initial Vital Signs: Vital Signs Temperature 98.1 F 06/12/21 12:42 Pulse Rate 112 H 06/12/21 12:42 Respiratory Rate 22 06/12/21 12:42 Blood Pressure 156/95 H 06/12/21 12:42 Pulse Oximetry 98 06/12/21 12:42 Course <GILSON Castaneda - Last Filed: 06/12/21 17:35> Orders Ordered: ED Orders 06/12/21 13:00 Complete Blood Count AUTO DIFF Stat Comprehensive Metabolic Panel Stat Lactate (Lactic Acid) Stat Lipase Stat Magnesium Stat 06/12/21 15:25 UA Complete [Urinalysis and Microscopic] Stat Discontinued Medications Diazepam (Diazepam 5 Mg Tablet) 5 mg PO NOW ONE Stop: 06/12/21 15:16 Last Admin: 06/12/21 15:27 Dose: 5 mg Documented by: JENNIFER Sodium Chloride (Normal Saline 0.9%) 1,000 mls @ 1,000 mls/hr IV BOLUS ONE Stop: 06/12/21 13:58 Last Infusion: 06/12/21 17:14 Dose: 0 mls/hr Documented by: Infusion: 06/12/21 15:01 Dose: 400 mls/hr Documented by: Admin: 06/12/21 13:15 Dose: 1,000 mls/hr Documented by: JENNIFER POTASSIUM CHLORIDE IN WATER (Potassium Cl 10 Meq/100 Ml Amparo) 10 meq in 100 mls @ 100 mls/hr IV Q1H YULIAAN Stop: 06/12/21 17:44 Last Infusion: 06/12/21 17:14 Dose: 0 mls/hr Documented by: Admin: 06/12/21 17:13 Dose: Not Given Documented by: Admin: 06/12/21 17:13 Dose: Not Given Documented by: Admin: 06/12/21 15:01 Dose: 100 mls/hr Documented by: Infusion: 06/12/21 14:52 Dose: 100 mls/hr Documented by: Admin: 06/12/21 13:52 Dose: 100 mls/hr Documented by: BRY Metoclopramide HCl (Metoclopramide 10 Mg/2 Ml Inj) 10 mg IV NOW ONE Stop: 06/12/21 13:52 Last Admin: 06/12/21 14:00 Dose: 10 mg Documented by: BRY Ondansetron HCl (Ondansetron 4 Mg/2 Ml Inj) 4 mg IV NOW ONE Stop: 06/12/21 13:00 Last Admin: 06/12/21 13:15 Dose: 4 mg Documented by: JENNIFER Potassium Chloride (Potassium Chloride 20 Meq Tab) 40 meq PO NOW ONE Stop: 06/12/21 13:51 Last Admin: 06/12/21 14:35 Dose: 40 meq Documented by: BRY Vital Signs Vital signs: Vital Signs - 8 hr 06/12/21 12:42 06/12/21 13:18 06/12/21 13:30 Temperature 98.1 F Pulse Rate 112 H 105 H 100 H Respiratory Rate 22 Blood Pressure 156/95 H Pulse Oximetry 98 98 96 06/12/21 13:31 06/12/21 14:00 06/12/21 14:30 Temperature Pulse Rate 101 H 101 H 103 H Respiratory Rate 18 Blood Pressure 138/70 125/66 118/75 Pulse Oximetry 96 94 96 06/12/21 15:00 06/12/21 15:19 06/12/21 15:30 Temperature Pulse Rate 101 H 104 H 100 H Respiratory Rate 19 20 20 Blood Pressure 123/61 127/73 138/79 Pulse Oximetry 96 97 97 06/12/21 16:00 06/12/21 16:30 06/12/21 16:31 Temperature Pulse Rate 99 H 101 H 101 H Respiratory Rate 14 22 25 H Blood Pressure 120/65 139/76 Pulse Oximetry 97 96 97 06/12/21 17:00 06/12/21 17:01 06/12/21 17:50 Temperature 97.9 F 97.9 F Pulse Rate 100 H 100 H 100 H Respiratory Rate 24 18 20 Blood Pressure 112/66 112/67 Pulse Oximetry 97 97 97 <Vesna Dewey DO - Last Filed: 06/12/21 18:01> Orders Ordered: ED Orders 06/12/21 13:00 Complete Blood Count AUTO DIFF Stat Comprehensive Metabolic Panel Stat Lactate (Lactic Acid) Stat Lipase Stat Magnesium Stat 06/12/21 15:25 UA Complete [Urinalysis and Microscopic] Stat Discontinued Medications Diazepam (Diazepam 5 Mg Tablet) 5 mg PO NOW ONE Stop: 06/12/21 15:16 Last Admin: 06/12/21 15:27 Dose: 5 mg Documented by: JENNIFER Sodium Chloride (Normal Saline 0.9%) 1,000 mls @ 1,000 mls/hr IV BOLUS ONE Stop: 06/12/21 13:58 Last Infusion: 06/12/21 17:14 Dose: 0 mls/hr Documented by: Infusion: 06/12/21 15:01 Dose: 400 mls/hr Documented by: Admin: 06/12/21 13:15 Dose: 1,000 mls/hr Documented by: JENNIFER POTASSIUM CHLORIDE IN WATER (Potassium Cl 10 Meq/100 Ml Amparo) 10 meq in 100 mls @ 100 mls/hr IV Q1H YULIANA Stop: 06/12/21 17:44 Last Infusion: 06/12/21 17:14 Dose: 0 mls/hr Documented by: Admin: 06/12/21 17:13 Dose: Not Given Documented by: Admin: 06/12/21 17:13 Dose: Not Given Documented by: Admin: 06/12/21 15:01 Dose: 100 mls/hr Documented by: Infusion: 06/12/21 14:52 Dose: 100 mls/hr Documented by: Admin: 06/12/21 13:52 Dose: 100 mls/hr Documented by: BRY Metoclopramide HCl (Metoclopramide 10 Mg/2 Ml Inj) 10 mg IV NOW ONE Stop: 06/12/21 13:52 Last Admin: 06/12/21 14:00 Dose: 10 mg Documented by: BRY Ondansetron HCl (Ondansetron 4 Mg/2 Ml Inj) 4 mg IV NOW ONE Stop: 06/12/21 13:00 Last Admin: 06/12/21 13:15 Dose: 4 mg Documented by: KBRYERS Potassium Chloride (Potassium Chloride 20 Meq Tab) 40 meq PO NOW ONE Stop: 06/12/21 13:51 Last Admin: 06/12/21 14:35 Dose: 40 meq Documented by: BRY Vital Signs Vital signs: Vital Signs - 8 hr 06/12/21 12:42 06/12/21 13:18 06/12/21 13:30 Temperature 98.1 F Pulse Rate 112 H 105 H 100 H Respiratory Rate 22 Blood Pressure 156/95 H Pulse Oximetry 98 98 96 06/12/21 13:31 06/12/21 14:00 06/12/21 14:30 Temperature Pulse Rate 101 H 101 H 103 H Respiratory Rate 18 Blood Pressure 138/70 125/66 118/75 Pulse Oximetry 96 94 96 06/12/21 15:00 06/12/21 15:19 06/12/21 15:30 Temperature Pulse Rate 101 H 104 H 100 H Respiratory Rate 19 20 20 Blood Pressure 123/61 127/73 138/79 Pulse Oximetry 96 97 97 06/12/21 16:00 06/12/21 16:30 06/12/21 16:31 Temperature Pulse Rate 99 H 101 H 101 H Respiratory Rate 14 22 25 H Blood Pressure 120/65 139/76 Pulse Oximetry 97 96 97 06/12/21 17:00 06/12/21 17:01 06/12/21 17:50 Temperature 97.9 F 97.9 F Pulse Rate 100 H 100 H 100 H Respiratory Rate 24 18 20 Blood Pressure 112/66 112/67 Pulse Oximetry 97 97 97 MDM - Nausea/Vomiting/Diarrhea <ADAM CastanedaP - Last Filed: 06/12/21 17:35> Lab Data Lab results narrative: Mild leukocytosis, likely related to mild dehydration, UA without any sign of infection. Patient was given 40 mEq p.o. and 40 mEq IV potassium for her 2.7 critical value. Creatinine slightly bumped at 1.09 from a baseline of 0.8. Lactic acid was 2.1. Result diagrams: 06/12/21 13:00 06/12/21 13:00 Labs: Lab Results 06/12/21 06/12/21 06/12/21 Range/Units 13:00 13:00 13:00 WBC 11.2 H (4.5-11.0) X10^3/uL RBC 5.38 H (4.0-5.2) X10^6/uL Hgb 14.6 (12.0-16.0) g/dL Hct 44.1 (36-46) % MCV 82.0 (80-100) fL MCH 27.1 (26-34) PG MCHC 33.0 (30-36) % RDW 15.3 H (11.6-14.8) % Plt Count 304 (150-400) X10^3/uL Neut % (Auto) 54.9 (50-75) % Lymph % (Auto) 34.5 (25-40) % [place] % (Auto) 7.0 (3-14) % Eos % (Auto) 2.2 (2-4) % Baso % (Auto) 1.4 (0-2) % Neut # (Auto) 6100 (2766-5875) /uL Lymph # (Auto) 3800 (6961-0682) /uL [place] # (Auto) 800 (0-900) /uL Eos # (Auto) 200 (0-450) /uL Baso # (Auto) 200 H (0-100) /uL Sodium 137 (137-145) mmol/L Potassium 2.7 L* (3.4-5.1) mmol/L Chloride 101 (98-107) mmol/L Carbon Dioxide 28 (22-32) mmol/L BUN 11 (7-17) mg/dL Creatinine 1.09 H (0.52-1.04) mg/dL Estimated GFR 54.0 L (>60) mL/min BUN/Creatinine Ratio 10.1 (6-22) Glucose 185 H (70-100) mg/dL Lactate 2.1 (0.7-2.1) mmol/L Calcium 9.4 (8.4-10.2) mg/dL Magnesium 2.1 (1.6-2.3) mg/dL Total Bilirubin 0.4 (0.2-1.3) mg/dL AST 32 (14-36) IU/L ALT 28 (<35) IU/L Alkaline Phosphatase 71 (38-126) U/L Total Protein 7.7 (6.3-8.2) g/dL Albumin 4.5 (3.5-5.0) g/dL Globulin 3.2 (1.7-4.1) g/dL Albumin/Globulin Ratio 1.4 (1.0-2.8) Lipase 25 (23-300) U/L Urine Color Urine Appearance Urine pH (4.5-8.0) Ur Specific [place] (1.000-1.035) Urine Protein (Negative) Urine Glucose (UA) (Negative) g/dL Urine Ketones (NEGATIVE) Urine Occult Blood (Negative) Urine Nitrate (Negative) Urine Bilirubin (NEGATIVE) Urine Urobilinogen (0.2) E.U./dL Ur Leukocyte Esterase (NEGATIVE) Urine RBC (0-5/HPF) Urine WBC (0-5/HPF) Ur Squamous Epith Cells (0-5/HPF) Urine Bacteria (None) Ur Culture Indicated? 06/12/21 06/12/21 Range/Units 15:25 16:04 WBC (4.5-11.0) X10^3/uL RBC (4.0-5.2) X10^6/uL Hgb (12.0-16.0) g/dL Hct (36-46) % MCV (80-100) fL MCH (26-34) PG MCHC (30-36) % RDW (11.6-14.8) % Plt Count (150-400) X10^3/uL Neut % (Auto) (50-75) % Lymph % (Auto) (25-40) % [place] % (Auto) (3-14) % Eos % (Auto) (2-4) % Baso % (Auto) (0-2) % Neut # (Auto) (2465-5516) /uL Lymph # (Auto) (8498-9033) /uL [place] # (Auto) (0-900) /uL Eos # (Auto) (0-450) /uL Baso # (Auto) (0-100) /uL Sodium (137-145) mmol/L Potassium (3.4-5.1) mmol/L Chloride (98-107) mmol/L Carbon Dioxide (22-32) mmol/L BUN (7-17) mg/dL Creatinine (0.52-1.04) mg/dL Estimated GFR (>60) mL/min BUN/Creatinine Ratio (6-22) Glucose (70-100) mg/dL Lactate 1.2 (0.7-2.1) mmol/L Calcium (8.4-10.2) mg/dL Magnesium (1.6-2.3) mg/dL Total Bilirubin (0.2-1.3) mg/dL AST (14-36) IU/L ALT (<35) IU/L Alkaline Phosphatase (38-126) U/L Total Protein (6.3-8.2) g/dL Albumin (3.5-5.0) g/dL Globulin (1.7-4.1) g/dL Albumin/Globulin Ratio (1.0-2.8) Lipase (23-300) U/L Urine Color Yellow Urine Appearance Clear Urine pH 7.0 (4.5-8.0) Ur Specific [place] 1.010 (1.000-1.035) Urine Protein Negative (Negative) Urine Glucose (UA) Negative (Negative) g/dL Urine Ketones Negative (NEGATIVE) Urine Occult Blood Negative (Negative) Urine Nitrate Negative (Negative) Urine Bilirubin Negative (NEGATIVE) Urine Urobilinogen 0.2 (0.2) E.U./dL Ur Leukocyte Esterase Negative (NEGATIVE) Urine RBC 0-1/hpf (0-5/HPF) Urine WBC 0-1/hpf (0-5/HPF) Ur Squamous Epith Cells 1-5 /hpf (0-5/HPF) Urine Bacteria Occasional (0-1) (None) Ur Culture Indicated? Cult not indicated Point of Care Testing Glucose POC 78 Urine Dip Bedside Urine Glucose Negative Bedside Urine Bilirubin - Negative Bedside Urine Ketone - Negative Urine Specific [place] 1.010 Bedside Urine Occult Blood - Negative Bedside Urine pH 7.0 Bedside Urine Protein - Negative Bedside Urine Urobilinogen - Negative Bedside Urine Nitrite - Negative Bedside Urine Leukocytes - Negative Esterase [facility] Narrative Medical decision making narrative: This is a 46-year-old female history of MS, diabetes type 2 with an insulin pump, morbid obesity, PCOS, osteoarthritis, diabetic gastroparesis and fibromyalgia who presents to the emergency department complaining of nausea, vomiting, diarrhea for approximately 1. She states that she feels the hydrated, she did not take her potassium this morning, she states she was unable to keep it down. She denies any blood in her emesis or her stool. She was seen in the emergency department approximately 1 week ago for similar symptoms. She did not have any signs of infection at that time either, only wound was a small skin tear on her right lower quadrant abdomen which is healing as expected and she is using topical mupirocin ointment. Patient was found to have a critically low potassium today of 2.7. Patient states that her insulin pump ran out earlier this morning, her blood sugar got up into the 200s, when she changed her insulin pump, she said that she felt nauseated and was throwing up so she was unable to keep down her potassium. She was given 1 L of normal saline, 4 mg of Zofran, 10 mg of Reglan, 5 mg of diazepam with resolution of her nausea and vomiting. She did not complain of pain today. UA was negative for leukocytes, nitrites, blood. Patient was given 40 mEq of p.o. potassium and 40 mEq of IV potassium chloride. She was able to keep down her p.o. potassium. Her creatinine was slightly elevated at 1.09 from her baseline of 0.8 likely due to dehydration. Her lipase was 25, mild leukocytosis of 11.2 likely in the setting of dehydration, no signs of acidosis or diabetic ketoacidosis, liver enzymes are not elevated, nontender abdominal exam, patient feels ready to discharge home. She was given strict return precautions, instructed to monitor her blood sugar closely, she uses a Oxonica lester and has an insulin pump. She did become hypoglycemic while her IV fluids were running in because her insulin pump continued running. She was given cheese, crackers, and some juice, blood sugar was checked multiple times and it did reach stability and state over 85 in less than 150. Patient was instructed to follow-up with her neurologist for her MS, exercise physiology professor for her type 2 diabetes, and Dr. Shearer for help managing her daily symptoms of nausea related to gastroparesis. Patient states that she does not like the way her Reglan makes her feel so she has not been taking it and she was requesting Zofran refills because she states she was taking them at home every 4 hours. Patient was educated on taking Zofran only every 8 hours as needed after she has taken her Reglan. Patient will follow-up with her primary care provider about these medications. Patient is appropriate and amenable to discharge home. Vital signs are stable on repeat examination is unremarkable. Patient has been informed of results. Patient has been given strict return to ER precautions for any new or worsening symptoms. Patient understands to follow up closely with outpatient providers as instructed. Patient understands plan and agrees to discharge home. All questions and concerns answered at this time. <Vesna Ilda Dewey, DO - Last Filed: 06/12/21 18:01> Lab Data Labs: Lab Results 06/12/21 06/12/21 06/12/21 Range/Units 13:00 13:00 13:00 WBC 11.2 H (4.5-11.0) X10^3/uL RBC 5.38 H (4.0-5.2) X10^6/uL Hgb 14.6 (12.0-16.0) g/dL Hct 44.1 (36-46) % MCV 82.0 (80-100) fL MCH 27.1 (26-34) PG MCHC 33.0 (30-36) % RDW 15.3 H (11.6-14.8) % Plt Count 304 (150-400) X10^3/uL Neut % (Auto) 54.9 (50-75) % Lymph % (Auto) 34.5 (25-40) % [place] % (Auto) 7.0 (3-14) % Eos % (Auto) 2.2 (2-4) % Baso % (Auto) 1.4 (0-2) % Neut # (Auto) 6100 (2484-7076) /uL Lymph # (Auto) 3800 (3474-8929) /uL [place] # (Auto) 800 (0-900) /uL Eos # (Auto) 200 (0-450) /uL Baso # (Auto) 200 H (0-100) /uL Sodium 137 (137-145) mmol/L Potassium 2.7 L* (3.4-5.1) mmol/L Chloride 101 (98-107) mmol/L Carbon Dioxide 28 (22-32) mmol/L BUN 11 (7-17) mg/dL Creatinine 1.09 H (0.52-1.04) mg/dL Estimated GFR 54.0 L (>60) mL/min BUN/Creatinine Ratio 10.1 (6-22) Glucose 185 H (70-100) mg/dL Lactate 2.1 (0.7-2.1) mmol/L Calcium 9.4 (8.4-10.2) mg/dL Magnesium 2.1 (1.6-2.3) mg/dL Total Bilirubin 0.4 (0.2-1.3) mg/dL AST 32 (14-36) IU/L ALT 28 (<35) IU/L Alkaline Phosphatase 71 (38-126) U/L Total Protein 7.7 (6.3-8.2) g/dL Albumin 4.5 (3.5-5.0) g/dL Globulin 3.2 (1.7-4.1) g/dL Albumin/Globulin Ratio 1.4 (1.0-2.8) Lipase 25 (23-300) U/L Urine Color Urine Appearance Urine pH (4.5-8.0) Ur Specific [place] (1.000-1.035) Urine Protein (Negative) Urine Glucose (UA) (Negative) g/dL Urine Ketones (NEGATIVE) Urine Occult Blood (Negative) Urine Nitrate (Negative) Urine Bilirubin (NEGATIVE) Urine Urobilinogen (0.2) E.U./dL Ur Leukocyte Esterase (NEGATIVE) Urine RBC (0-5/HPF) Urine WBC (0-5/HPF) Ur Squamous Epith Cells (0-5/HPF) Urine Bacteria (None) Ur Culture Indicated? 06/12/21 06/12/21 Range/Units 15:25 16:04 WBC (4.5-11.0) X10^3/uL RBC (4.0-5.2) X10^6/uL Hgb (12.0-16.0) g/dL Hct (36-46) % MCV (80-100) fL MCH (26-34) PG MCHC (30-36) % RDW (11.6-14.8) % Plt Count (150-400) X10^3/uL Neut % (Auto) (50-75) % Lymph % (Auto) (25-40) % [place] % (Auto) (3-14) % Eos % (Auto) (2-4) % Baso % (Auto) (0-2) % Neut # (Auto) (4884-7923) /uL Lymph # (Auto) (2597-0048) /uL [place] # (Auto) (0-900) /uL Eos # (Auto) (0-450) /uL Baso # (Auto) (0-100) /uL Sodium (137-145) mmol/L Potassium (3.4-5.1) mmol/L Chloride (98-107) mmol/L Carbon Dioxide (22-32) mmol/L BUN (7-17) mg/dL Creatinine (0.52-1.04) mg/dL Estimated GFR (>60) mL/min BUN/Creatinine Ratio (6-22) Glucose (70-100) mg/dL Lactate 1.2 (0.7-2.1) mmol/L Calcium (8.4-10.2) mg/dL Magnesium (1.6-2.3) mg/dL Total Bilirubin (0.2-1.3) mg/dL AST (14-36) IU/L ALT (<35) IU/L Alkaline Phosphatase (38-126) U/L Total Protein (6.3-8.2) g/dL Albumin (3.5-5.0) g/dL Globulin (1.7-4.1) g/dL Albumin/Globulin Ratio (1.0-2.8) Lipase (23-300) U/L Urine Color Yellow Urine Appearance Clear Urine pH 7.0 (4.5-8.0) Ur Specific [place] 1.010 (1.000-1.035) Urine Protein Negative (Negative) Urine Glucose (UA) Negative (Negative) g/dL Urine Ketones Negative (NEGATIVE) Urine Occult Blood Negative (Negative) Urine Nitrate Negative (Negative) Urine Bilirubin Negative (NEGATIVE) Urine Urobilinogen 0.2 (0.2) E.U./dL Ur Leukocyte Esterase Negative (NEGATIVE) Urine RBC 0-1/hpf (0-5/HPF) Urine WBC 0-1/hpf (0-5/HPF) Ur Squamous Epith Cells 1-5 /hpf (0-5/HPF) Urine Bacteria Occasional (0-1) (None) Ur Culture Indicated? Cult not indicated Point of Care Testing Glucose POC 78 Urine Dip Bedside Urine Glucose Negative Bedside Urine Bilirubin - Negative Bedside Urine Ketone - Negative Urine Specific [place] 1.010 Bedside Urine Occult Blood - Negative Bedside Urine pH 7.0 Bedside Urine Protein - Negative Bedside Urine Urobilinogen - Negative Bedside Urine Nitrite - Negative Bedside Urine Leukocytes - Negative Esterase Discharge Plan Departure Patient Disposition: Home Clinical Impression: Hypokalemia Vomiting Qualifiers: Vomiting type: unspecified Vomiting Intractability: non-intractable Nausea presence: with nausea Qualified Code(s): R11.2 - Nausea with vomiting, unspecified Instructions: Complications of Type 2 Diabetes, Type 2 Diabetes, Nausea and Vomiting-Adult, Hypokalemia Activity Restrictions/Additional Instructions: *You have been diagnosed with nausea, vomiting, diarrhea most likely related to your diabetes and gastroparesis. We did not find any infectious causes to your symptoms today, your potassium level was significantly low at 2.7. He received 1 L of IV fluids, Zofran, Reglan, and diazepam for your nausea. Please continue taking your regularly scheduled medications, please monitor your blood sugars, try to avoid sugary foods and drinks. Please follow-up with your exercise physiology professor/neurologist/regular doctor at your regularly scheduled appointments. Please follow-up with them accordingly, try to get in with Dr. Janki Ramirez before she goes on vacation for follow-up. Please take your Reglan at home, this may be the most helpful for your gastroparesis as it improves motility. Please try stay hydrated and take a multivitamin and your daily potassium pill. Please return to the emergency department if he have any worsening of your symptoms, inability to keep anything down, or for any new or worsening concerns. *What to do: *Please continue to take your regular medications as directed. [ x] New medication prescriptions sent to your pharmacy: [ [facility]] [ ] New medication written as a paper prescription [ ] No new medications given *Please follow up with your primary care provider in 2-3 days, call for an appointment. Let them know you were seen in the Emergency Department and that we asked that you be seen for follow-up. We will electronically transmit a record of today's note if your PCP is in our system *If you do not have a primary care provider please contact [phone] to establish care with one of the [facility] primary care providers. *Return to Emergency Department if you should have any new, worsening or concerning symptoms, such as [fever greater than 101F, chills, worsening pain, persistent vomiting or other bothersome symptoms] Prescriptions: New ondansetron 4 mg tablet,disintegrating 4 mg PO Q8H PRN (Reason: nausea and vomiting) Qty: 14 0RF No Action clindamycin HCl 300 mg capsule 300 mg PO Q6H Qty: 40 0RF ondansetron HCl [Zofran] 4 mg tablet 4 mg PO Q6H PRN (Reason: nausea and vomiting) Qty: 10 0RF fluconazole [Diflucan] 150 mg tablet 150 mg PO Q3D Qty: 2 0RF Rx Instructions: may repeat second dose 72 hrs after first dose if symptoms persist oxycodone 5 mg tablet 5 mg PO Q4-6H PRN (Reason: pain) Qty: 10 0RF oxycodone 5 mg tablet 5 mg PO BID PRN (Reason: pain) Qty: 10 0RF atorvastatin 10 mg tablet 1 tab PO QPM 0RF baclofen 10 mg tablet 1 - 2 tab PO TID PRN (Reason: Pain (Scale Score 1-3)) 0RF diazepam 10 mg tablet 1 tab PO Q8H PRN (Reason: Spasms) 0RF fluconazole 100 mg tablet 1 tab PO PRN PRN (Reason: Rash) 0RF meclizine 12.5 mg tablet 12.5 mg PO PRN PRN (Reason: Vertigo) 0RF gabapentin 300 mg capsule 300 mg PO QID 0RF levothyroxine 200 mcg tablet 200 mcg PO DAILY 0RF topiramate 100 mg tablet 100 mg PO DAILY 0RF eletriptan 40 mg tablet 1 tab PO PRN PRN (Reason: Migraine Headache) 0RF Label Comments: TK 1 T PO PRN FOR MIGRAINE MAY REPEAT DOSE IN 2 HOURS. MAX DOSE OF 2 TS PER 24 HOURS triamcinolone acetonide 0.1 % cream See Rx Instructions .ROUTE .COMPLEX 0RF Rx Instructions: topical to affected skin areas zolpidem 5 mg tablet 5 mg PO BEDTIME PRN (Reason: Insomnia) 0RF Label Comments: TK 1 T PO AT NIGHT PRF INSOMNIA promethazine 12.5 mg tablet 25 mg PO Q6H PRN (Reason: Nausea And Vomiting) 0RF insulin aspart U-100 100 unit/mL (3 mL) insulin pen See Rx Instructions .ROUTE .COMPLEX 0RF Label Comments: ADM 30 UNI SC TID WC Rx Instructions: has insulin pump. takes 1 unit of insulin per every 2 carbs. milnacipran 100 mg tablet 100 mg PO BID 0RF albuterol sulfate 90 mcg/actuation HFA aerosol inhaler 2 puff INHALATION Q4-6H PRN (Reason: shortness of breath or wheezing) Qty: 8.5 0RF Rx Instructions: use with spacer aspirin 325 mg Tablet 325 mg PO DAILY 0RF losartan 25 mg Tablet 25 mg PO DAILY 0RF levocetirizine 5 mg Tablet 5 mg PO DAILY 0RF pioglitazone [Actos] 15 mg Tablet 15 mg PO DAILY 0RF ibuprofen 800 mg tablet 600 mg PO Q8H PRN (Reason: pain) 0RF trazodone 50 mg Tablet 50 mg PO BEDTIME 0RF potassium chloride 10 mEq Tablet Extended Release 30 meq PO DAILY 0RF prednisone 20 mg tablet See Rx Instructions .ROUTE .COMPLEX Qty: 17 0RF Rx Instructions: Take 100 mg day 1, 80 mg day 2, 60 mg day 3, 40 mg day 4, 20 mg day 5-6. 10 mg day 6-7. cefpodoxime 200 mg tablet 200 mg PO BID Qty: 14 0RF Rx Instructions: must administer with a meal/food doxycycline hyclate 100 mg capsule 100 mg PO BID Qty: 14 0RF fluconazole [Diflucan] 150 mg tablet 150 mg PO Q3D Qty: 2 0RF Referrals: Cedric Noel DO [Primary Care Provider] - <Vesna Dewey DO - Last Filed: 06/12/21 18:01> Cosign ED Attending Cosignature Attestation: I was immediately available in the department for consultation. Documentation has been reviewed.
[2021-06-12] MEDS: METOCLOPRAMIDE 10 MG/2 ML INJ IV (14:00)
[2021-06-12 14:03] LABS: Lactate (Lactic Acid) 2.1 mmol/L (0.7-2.1)
[2021-06-12 14:05] LABS: Magnesium 2.1 mg/dL (1.6-2.3)
[2021-06-12] MEDS: POTASSIUM CHLORIDE 20 MEQ TAB 40 MEQ PO (14:35)
[2021-06-12] MEDS: diazePAM 5 MG TABLET PO (15:27)
[2021-06-12 15:29] LABS: Appearance Urine UA CLEAR; Bilirubin Urine UA NEGATIVE (NEGATIVE); Color Urine UA YELLOW; Glucose Urine UA NEGATIVE (Negative); Ketones Urine UA NEGATIVE (NEGATIVE); Leukocyte Esterase Urine UA NEGATIVE (NEGATIVE); Nitrite Urine UA NEGATIVE (Negative); Occult Blood Urine UA NEGATIVE (Negative); Protein Urine UA NEGATIVE (Negative); Urobilinogen Urine UA 0.2 E.U./dL (0.2)
[2021-06-12 15:40] LABS: Bacteria Urine Occasional (0-1); Culture Indicated Urine Cult Not Indicated; RBC Urine 0-1/HPF (0-5/HPF); Squamous Epithelial Cell Urine 1-5 /HPF (0-5/HPF); WBC Urine 0-1/HPF (0-5/HPF)
[2021-06-12 15:55] LABS: Reflexed Lactate in 2 Hours Y
[2021-06-12 16:26] LABS: Lactate 2HR (Lactic Acid Rflx) 1.2 mmol/L (0.7-2.1)
== END 2021-06-12 17:51 | disposition home or self-care (01) ==
PROVIDERS: Emergency Medicine; Emergency Provider Nurse Practitioner Critical Care Medicine; Family Provider Family Medicine; PCP Family Medicine
DX: R11.2 Nausea with vomiting, unspecified (principal); E87.6 Hypokalemia; E11.649 Type 2 diabetes mellitus with hypoglycemia without coma; Z96.41 Presence of insulin pump (external) (internal); Z79.4 Long term (current) use of insulin
CPT/HCPCS: 36415; 80053; 81001; 81003; 82962; 83605; 83690; 83735; 85025; 96365; 96366; 96375; 99284; J2405; J2765

== ENCOUNTER 2021-07-04 13:52 | Emergency (ER) | payer MEDICARE, OTHER, SELFPAY ==
[2020-03-20 10:23] VITALS: BMI 40.2
[2021-07-04] VITALS (8 sets, daily range): BP systolic 140–179; BP diastolic 67–81; PULSE 99–106; RESP 99; TEMP 36.6; O2SAT 95–98; BMI 43.4
[2021-07-04] MEDS: methylPREDNISolone 125 MG/2 ML VIAL IV (14:06)
[2021-07-04] MEDS: diphenhydrAMINE 50 MG/ML VIAL IV (14:06)
[2021-07-04] MEDS: FAMOTIDINE 20 MG/2 ML VIAL IV (14:06)
--- NOTE | 2021-07-04 16:19 | ED.ALLEREA ---
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 She was out to eat and the many said that mushrooms were available on request. She did not request unfortunately they were finely ground and present in her kulkarni she. After the 1st couple of bites she noticed the flavor and then began having increasing wheezing, throat tightness, hoarseness and slight breathing difficulties. With her multiple medical issues she does not typically carry an EpiPen because of the risk of epinephrine itself. She does typically carry Benadryl but did not have any today. On presentation to the emergency department she is complaining of shortness of breath, still able to speak in full sentences but she is losing her voice. She has no rashes. She reports no recent fevers, abdominal pain, vomiting or diarrhea. She notes that her sugars have been stable over the last couple of days to weeks. She continues to work with a host of manual therapists to help with her MS, fibromyalgia and chronic musculoskeletal pain. Related Data Home Medications Medication Instructions Recorded Confirmed atorvastatin 10 mg tablet 1 tab PO QPM 02/07/18 11/18/19 baclofen 10 mg tablet 1 - 2 tab PO TID PRN 02/07/18 11/18/19 diazepam 10 mg tablet 1 tab PO Q8H PRN 02/07/18 11/18/19 eletriptan 40 mg tablet 1 tab PO PRN PRN 02/07/18 11/18/19 fluconazole 100 mg tablet 1 tab PO PRN PRN 02/07/18 11/18/19 gabapentin 300 mg capsule 300 mg PO QID 02/07/18 11/18/19 levothyroxine 200 mcg tablet 200 mcg PO DAILY 02/07/18 11/18/19 meclizine 12.5 mg tablet 12.5 mg PO PRN PRN 02/07/18 11/18/19 topiramate 100 mg tablet 100 mg PO DAILY 02/07/18 11/18/19 triamcinolone acetonide 0.1 % See Rx Instructions .ROUTE .COMPLEX 02/07/18 11/18/19 topical cream zolpidem 5 mg tablet 5 mg PO BEDTIME PRN 02/07/18 11/18/19 insulin aspart U-100 100 unit/mL See Rx Instructions .ROUTE .COMPLEX 08/20/18 11/18/19 (3 mL) subcutaneous pen milnacipran 100 mg tablet 100 mg PO BID 08/20/18 11/18/19 promethazine 12.5 mg tablet 25 mg PO Q6H PRN 08/20/18 11/18/19 aspirin 325 mg tablet 325 mg PO DAILY 08/13/19 11/18/19 levocetirizine 5 mg tablet 5 mg PO DAILY 08/13/19 11/18/19 losartan 25 mg tablet 25 mg PO DAILY 08/13/19 11/18/19 pioglitazone 15 mg tablet (Actos) 15 mg PO DAILY 08/13/19 11/18/19 ibuprofen 800 mg tablet 600 mg PO Q8H PRN 08/14/19 11/18/19 trazodone 50 mg tablet 50 mg PO BEDTIME 08/14/19 11/18/19 potassium chloride 10 mEq 30 meq PO DAILY 11/18/19 11/18/19 tablet,extended release Previous Rx's Medication Instructions Recorded albuterol sulfate 90 mcg/actuation 2 puff INHALATION Q4-6H PRN #8.5 08/03/19 aerosol inhaler gram prednisone 20 mg tablet See Rx Instructions .ROUTE 11/21/19 .COMPLEX #17 tab clindamycin HCl 300 mg capsule 300 mg PO Q6H #40 cap 04/13/20 fluconazole 150 mg tablet 150 mg PO Q3D #2 tab 04/13/20 (Diflucan) ondansetron HCl 4 mg tablet 4 mg PO Q6H PRN #10 tab 04/13/20 (Zofran) cefpodoxime 200 mg tablet 200 mg PO BID #14 tab 12/29/20 doxycycline hyclate 100 mg capsule 100 mg PO BID #14 cap 12/29/20 fluconazole 150 mg tablet 150 mg PO Q3D #2 tab 12/29/20 (Diflucan) oxycodone 5 mg tablet 5 mg PO Q4-6H PRN #10 tab 05/03/21 oxycodone 5 mg tablet 5 mg PO BID PRN #10 tab 06/05/21 ondansetron 4 mg disintegrating 4 mg PO Q8H PRN #14 tab 06/12/21 tablet Allergies Allergy/AdvReac Type Severity Reaction Status Date / Time codeine Allergy Severe Rash Verified 07/04/21 14:09 lovastatin [From Advicor] Allergy Severe Anaphylaxis Verified 07/04/21 14:09 niacin [From Advicor] Allergy Severe Anaphylaxis Verified 07/04/21 14:09 pseudoephedrine Allergy Severe Anaphylaxis Verified 07/04/21 14:09 red (food color) Allergy Severe Anaphylaxis Verified 07/04/21 14:09 Penicillins Allergy Intermediate Rash Verified 07/04/21 14:09 mushroom Allergy Unknown Verified 07/04/21 14:09 ampicillin Allergy Rash Verified 07/04/21 14:09 barium iodide Allergy Verified 07/04/21 14:09 erythromycin base Allergy Verified 07/04/21 14:09 glatiramer (copolymer 1) Allergy Verified 07/04/21 14:09 interferon beta-1a Allergy itching Verified 07/04/21 14:09 and rash Iodinated Contrast Media Allergy Verified 07/04/21 14:09 lisinopril Allergy Kidneys Verified 07/04/21 14:09 shut down metformin Allergy Gastrointestinal Verified 07/04/21 14:09 Upset Sulfa (Sulfonamide Allergy Verified 07/04/21 14:09 Antibiotics) artificial sweetners Allergy Uncoded 07/04/21 14:09 Review of Systems Review of Systems Narrative: Remainder of complete review of systems is otherwise unremarkable except for that included in the HPI. Patient History Medical History Chronically low serum potassium Diabetes Diabetic gastroparesis Dislocation of left patella Fatigue Fibromyalgia History of shingles Hyperlipidemia Hypothyroidism Low vitamin D level Multiple sclerosis Obstructive sleep apnea syndrome Osteoarthritis PCOS (polycystic ovarian syndrome) Raynauds disease Type 2 diabetes mellitus Surgical History History of repair of anterior cruciate ligament of right knee Hx of cholecystectomy Family History Family/Other Loud snoring Sleep apnea Depression Dementia Father Loud snoring Sleep apnea Insomnia Restless legs syndrome Obesity Hypertension Heart disease Depression Bipolar disorder Mother Insomnia Hypertension Heart disease Depression Anxiety Family/Other Loud snoring Obesity Hypertension Depression Anxiety Social History marital status: household members: spouse and children Smoking Status: Never smoker alcohol intake: current Smoking Status: Never smoker alcohol intake frequency: a few times a month Substance Use Type: does not use Exam Initial Vital Signs Initial Vital Signs: Vital Signs Temperature 97.9 F 07/04/21 14:04 Pulse Rate 105 H 07/04/21 14:04 Respiratory Rate 99 H 07/04/21 14:04 Blood Pressure 179/78 H 07/04/21 14:04 Pulse Oximetry 98 07/04/21 14:04 General: Healthy appearing, increasingly anxious but Able to give a complete and coherent history. Well-nourished well-developed HEENT: Moist mucous membranes, normal sclera with reactive pupils, no obvious lip or tongue swelling. Voice is hoarse Neck: No JVD, supple Respiratory: Lungs are clear to auscultation, minor scattered upper airway wheezes, no rales no rhonchi. Full and symmetrical air movement Cardiac: Regular rate and rhythm no murmurs no bruits Abdomen: Soft, nontender, good bowel tones, no flank pain Skin: Warm and dry, no rashes Neurologic: Grossly neurologically intact with no obvious asymmetries or abnormalities Extremities: No trauma, well perfused Psych: Cooperative, appropriate insight and affect Course Orders Ordered: Discontinued Medications Diphenhydramine HCl (Diphenhydramine 50 Mg/Ml Vial) 50 mg IV NOW ONE Stop: 07/04/21 14:00 Last Admin: 07/04/21 14:06 Dose: 50 mg Documented by: BRY Famotidine (Famotidine 20 Mg/2 Ml Vial) 20 mg IV NOW ONE Stop: 07/04/21 14:01 Last Admin: 07/04/21 14:06 Dose: 20 mg Documented by: BRY Methylprednisolone (Methylprednisolone 125 Mg/2 Ml Vial) 125 mg IV NOW ONE Stop: 07/04/21 14:00 Last Admin: 07/04/21 14:06 Dose: 125 mg Documented by: BRY Vital Signs Vital signs: Vital Signs - 8 hr 07/04/21 14:04 07/04/21 14:56 07/04/21 14:57 Temperature 97.9 F Pulse Rate 105 H 103 H 102 H Respiratory Rate 99 H Blood Pressure 179/78 H 140/67 Pulse Oximetry 98 96 96 07/04/21 15:00 07/04/21 15:30 07/04/21 15:46 Temperature Pulse Rate 100 H 100 H 106 H Respiratory Rate Blood Pressure 168/81 H Pulse Oximetry 96 95 97 07/04/21 16:00 Temperature Pulse Rate 99 H Respiratory Rate Blood Pressure Pulse Oximetry 97 MDM - Allergic Reaction MDM Narrative Medical decision making narrative: 46-year-old woman with a known significant allergies to mushrooms who accidentally ate some mushrooms and a kulkarni she. Comes in with increasing upper respiratory scattered wheezing, a sensation that her throat is tightening and voice hoarseness. An IV is started she is given Benadryl, Solu-Medrol and Pepcid and significantly improved on re-evaluation 1 hour later. She is noting that her blood sugar is falling so she is given a snack in able to eat without difficulty. I did remind her that she was given a large dose of Solu-Medrol initially so she may need to add some additional correction to her blood sugars over the next 24 hours. At this point her symptoms have entirely resolved, she is feeling back to normal and requests discharge home which is entirely appropriate. Discharge Plan Departure Patient Disposition: Home Clinical Impression: Allergic reaction Instructions: DI for Anaphylaxis Activity Restrictions/Additional Instructions: Thank you for coming in today It seems like you again proven to yourself that you are definitely allergic to mushrooms. Fortunately, you responded rapidly and completely to IV Solu-Medrol, Benadryl and Pepcid. If you notice any recurrent symptoms this evening, oral Benadryl would be very appropriate. With large IV dose of steroid, Solu-Medrol, please do watch for and appropriately correct any hyperglycemia. I wish you the best Prescriptions: No Action clindamycin HCl 300 mg capsule 300 mg PO Q6H Qty: 40 0RF ondansetron HCl [Zofran] 4 mg tablet 4 mg PO Q6H PRN (Reason: nausea and vomiting) Qty: 10 0RF fluconazole [Diflucan] 150 mg tablet 150 mg PO Q3D Qty: 2 0RF Rx Instructions: may repeat second dose 72 hrs after first dose if symptoms persist oxycodone 5 mg tablet 5 mg PO Q4-6H PRN (Reason: pain) Qty: 10 0RF oxycodone 5 mg tablet 5 mg PO BID PRN (Reason: pain) Qty: 10 0RF ondansetron 4 mg tablet,disintegrating 4 mg PO Q8H PRN (Reason: nausea and vomiting) Qty: 14 0RF atorvastatin 10 mg tablet 1 tab PO QPM 0RF baclofen 10 mg tablet 1 - 2 tab PO TID PRN (Reason: Pain (Scale Score 1-3)) 0RF diazepam 10 mg tablet 1 tab PO Q8H PRN (Reason: Spasms) 0RF fluconazole 100 mg tablet 1 tab PO PRN PRN (Reason: Rash) 0RF meclizine 12.5 mg tablet 12.5 mg PO PRN PRN (Reason: Vertigo) 0RF gabapentin 300 mg capsule 300 mg PO QID 0RF levothyroxine 200 mcg tablet 200 mcg PO DAILY 0RF topiramate 100 mg tablet 100 mg PO DAILY 0RF eletriptan 40 mg tablet 1 tab PO PRN PRN (Reason: Migraine Headache) 0RF Label Comments: TK 1 T PO PRN FOR MIGRAINE MAY REPEAT DOSE IN 2 HOURS. MAX DOSE OF 2 TS PER 24 HOURS triamcinolone acetonide 0.1 % cream See Rx Instructions .ROUTE .COMPLEX 0RF Rx Instructions: topical to affected skin areas zolpidem 5 mg tablet 5 mg PO BEDTIME PRN (Reason: Insomnia) 0RF Label Comments: TK 1 T PO AT NIGHT PRF INSOMNIA promethazine 12.5 mg tablet 25 mg PO Q6H PRN (Reason: Nausea And Vomiting) 0RF insulin aspart U-100 100 unit/mL (3 mL) insulin pen See Rx Instructions .ROUTE .COMPLEX 0RF Label Comments: ADM 30 UNI SC TID WC Rx Instructions: has insulin pump. takes 1 unit of insulin per every 2 carbs. milnacipran 100 mg tablet 100 mg PO BID 0RF albuterol sulfate 90 mcg/actuation HFA aerosol inhaler 2 puff INHALATION Q4-6H PRN (Reason: shortness of breath or wheezing) Qty: 8.5 0RF Rx Instructions: use with spacer aspirin 325 mg Tablet 325 mg PO DAILY 0RF losartan 25 mg Tablet 25 mg PO DAILY 0RF levocetirizine 5 mg Tablet 5 mg PO DAILY 0RF pioglitazone [Actos] 15 mg Tablet 15 mg PO DAILY 0RF ibuprofen 800 mg tablet 600 mg PO Q8H PRN (Reason: pain) 0RF trazodone 50 mg Tablet 50 mg PO BEDTIME 0RF potassium chloride 10 mEq Tablet Extended Release 30 meq PO DAILY 0RF prednisone 20 mg tablet See Rx Instructions .ROUTE .COMPLEX Qty: 17 0RF Rx Instructions: Take 100 mg day 1, 80 mg day 2, 60 mg day 3, 40 mg day 4, 20 mg day 5-6. 10 mg day 6-7. cefpodoxime 200 mg tablet 200 mg PO BID Qty: 14 0RF Rx Instructions: must administer with a meal/food doxycycline hyclate 100 mg capsule 100 mg PO BID Qty: 14 0RF fluconazole [Diflucan] 150 mg tablet 150 mg PO Q3D Qty: 2 0RF Referrals: Cedric Noel DO [Primary Care Provider] -
--- NOTE | 2021-07-04 16:20 | PC.NURSE ---
Pt states blood glucose is dropping, personal monitor says 88, provided apple juice per request.
== END 2021-07-04 16:55 | disposition home or self-care (01) ==
PROVIDERS: Emergency Provider Emergency Medicine; Family Provider Family Medicine; PCP Family Medicine
DX: R06.00 Dyspnea, unspecified (principal); R06.2 Wheezing; T78.1XXA Other adverse food reactions, not elsewhere classified, initial encounter
CPT/HCPCS: 96374; 96375; 99283; 99284; J1200; J2930

== ENCOUNTER 2021-08-02 18:05 | Inpatient (IN) | payer MEDICARE, OTHER, SELFPAY ==
[2020-03-20 10:23] VITALS: BMI 40.2
[2021-08-02 18:24] VITALS: BP 126/74; PULSE 102; RESP 18; TEMP 37; O2SAT 97; BMI 43.9
[2021-08-02 20:43] LABS: Add Manual Diff / Slide Review NO; Basophils Absolute Auto 100 /uL (0-100); Basophils Percent Auto 0.8 % (0-2); Eosinophils Absolute Auto 200 /uL (0-450); Eosinophils Percent Auto 1.8 % (2-4); Hematocrit 43.4 % (36-46); Hemoglobin 14.1 g/dL (12.0-16.0); Lymphocytes Absolute Auto 3900 /uL (1100-4500); Lymphocytes Percent Auto 34.4 % (25-40); Mean Corpuscular HGB Conc 32.5 % (30-36); Mean Corpuscular Hemoglobin 27.5 PG (26-34); Mean Corpuscular Volume 84.6 fL (80-100); Monocytes Absolute Auto 1000 /uL (0-900); Monocytes Percent Auto 8.7 % (3-14); Neutrophils Absolute Auto 6200 /uL (1500-7000); Neutrophils Percent Auto 54.3 % (50-75); Platelet Count 319 X10^3/uL (150-400); Red Blood Cell Count 5.13 X10^6/uL (4.0-5.2); Red Cell Distribution Width 15.9 % (11.6-14.8); White Blood Cell Count 11.4 X10^3/uL (4.5-11.0)
[2021-08-02 20:52] LABS: Alanine Aminotransferase 24 IU/L (<35); Albumin 3.6 g/dL (3.5-5.0); Albumin Globulin Ratio 1.4 (1.0-2.8); Alkaline Phosphatase 42 U/L (38-126); Aspartate Aminotransferase 31 IU/L (14-36); BUN Creatinine Ratio 11.4 (6-22); Bilirubin Total 0.5 mg/dL (0.2-1.3); Blood Urea Nitrogen 10 mg/dL (7-17); Calcium 8.4 mg/dL (8.4-10.2); Carbon Dioxide 17 mmol/L (22-32); Chloride 111 mmol/L (98-107); Estimated Glomerular Filt Rate > 60 mL/min (>60); Globulin 2.6 g/dL (1.7-4.1); Glucose 152 mg/dL (70-100); Potassium 3.8 mmol/L (3.4-5.1); Sodium 138 mmol/L (137-145); Total Protein 6.2 g/dL (6.3-8.2)
[2021-08-02 20:53] LABS: HEMOLYSIS 83 (0-50)
--- NOTE | 2021-08-02 22:14 | ED.EXTPRO ---
HPI - Extremity Problem General Chief complaint: Extremity Problem,Nontraumatic Stated complaint: Severe Hand/Feet Spasms Time Seen by Provider: 08/02/21 21:41 Source: patient Mode of arrival: Wheelchair History of Present Illness HPI Narrative: 45-year-old female nonsmoker with history of MS presents with a chief complaint of various symptoms that are reminiscent of prior MS exacerbations. For the past 4-5 days she has been having increasing pain and spasm in her hands and feet and some generalized weakness. Her last exacerbation requiring admission was a few years ago and relatively similar to this presentation. She has been taking her medications as directed and denies any change oral mentions. She does admit that she is under increased stress due to increased work load but denies recent illness with fever chills, runny nose, sore throat or cough and no urinary complaints. She denies any headache or blurred vision, she denies any balance issues. She does have increasing nausea over the past few days and does admit to gastroparesis. Related Data Home Medications Medication Instructions Recorded Confirmed atorvastatin 10 mg tablet 1 tab PO QPM 02/07/18 11/18/19 baclofen 10 mg tablet 1 - 2 tab PO TID PRN 02/07/18 11/18/19 diazepam 10 mg tablet 1 tab PO Q8H PRN 02/07/18 11/18/19 eletriptan 40 mg tablet 1 tab PO PRN PRN 02/07/18 11/18/19 fluconazole 100 mg tablet 1 tab PO PRN PRN 02/07/18 11/18/19 gabapentin 300 mg capsule 300 mg PO QID 02/07/18 11/18/19 levothyroxine 200 mcg tablet 200 mcg PO DAILY 02/07/18 11/18/19 meclizine 12.5 mg tablet 12.5 mg PO PRN PRN 02/07/18 11/18/19 topiramate 100 mg tablet 100 mg PO DAILY 02/07/18 11/18/19 triamcinolone acetonide 0.1 % See Rx Instructions .ROUTE .COMPLEX 02/07/18 11/18/19 topical cream zolpidem 5 mg tablet 5 mg PO BEDTIME PRN 02/07/18 11/18/19 insulin aspart U-100 100 unit/mL See Rx Instructions .ROUTE .COMPLEX 06/10/19 09/07/20 (3 mL) subcutaneous pen milnacipran 100 mg tablet 100 mg PO BID 08/20/18 11/18/19 promethazine 12.5 mg tablet 25 mg PO Q6H PRN 08/20/18 11/18/19 aspirin 325 mg tablet 325 mg PO DAILY 08/13/19 11/18/19 levocetirizine 5 mg tablet 5 mg PO DAILY 08/13/19 11/18/19 losartan 25 mg tablet 25 mg PO DAILY 08/13/19 11/18/19 pioglitazone 15 mg tablet (Actos) 15 mg PO DAILY 08/13/19 11/18/19 ibuprofen 800 mg tablet 600 mg PO Q8H PRN 08/14/19 11/18/19 trazodone 50 mg tablet 50 mg PO BEDTIME 08/14/19 11/18/19 potassium chloride 10 mEq 30 meq PO DAILY 11/18/19 11/18/19 tablet,extended release Previous Rx's Medication Instructions Recorded albuterol sulfate 90 mcg/actuation 2 puff INHALATION Q4-6H PRN #8.5 08/03/19 aerosol inhaler gram prednisone 20 mg tablet See Rx Instructions .ROUTE 11/21/19 .COMPLEX #17 tab clindamycin HCl 300 mg capsule 300 mg PO Q6H #40 cap 04/13/20 fluconazole 150 mg tablet 150 mg PO Q3D #2 tab 04/13/20 (Diflucan) ondansetron HCl 4 mg tablet 4 mg PO Q6H PRN #10 tab 04/13/20 (Zofran) cefpodoxime 200 mg tablet 200 mg PO BID #14 tab 12/29/20 doxycycline hyclate 100 mg capsule 100 mg PO BID #14 cap 12/29/20 fluconazole 150 mg tablet 150 mg PO Q3D #2 tab 12/29/20 (Diflucan) oxycodone 5 mg tablet 5 mg PO Q4-6H PRN #10 tab 05/03/21 oxycodone 5 mg tablet 5 mg PO BID PRN #10 tab 06/05/21 ondansetron 4 mg disintegrating 4 mg PO Q8H PRN #14 tab 06/12/21 tablet Allergies Allergy/AdvReac Type Severity Reaction Status Date / Time codeine Allergy Severe Rash Verified 07/04/21 14:09 lovastatin [From Advicor] Allergy Severe Anaphylaxis Verified 07/04/21 14:09 niacin [From Advicor] Allergy Severe Anaphylaxis Verified 07/04/21 14:09 pseudoephedrine Allergy Severe Anaphylaxis Verified 07/04/21 14:09 red (food color) Allergy Severe Anaphylaxis Verified 07/04/21 14:09 Penicillins Allergy Intermediate Rash Verified 07/04/21 14:09 mushroom Allergy Unknown Verified 07/04/21 14:09 ampicillin Allergy Rash Verified 07/04/21 14:09 barium iodide Allergy Verified 07/04/21 14:09 erythromycin base Allergy Verified 07/04/21 14:09 glatiramer (copolymer 1) Allergy Verified 07/04/21 14:09 interferon beta-1a Allergy itching Verified 07/04/21 14:09 and rash Iodinated Contrast Media Allergy Verified 07/04/21 14:09 lisinopril Allergy Kidneys Verified 07/04/21 14:09 shut down metformin Allergy Gastrointestinal Verified 07/04/21 14:09 Upset Sulfa (Sulfonamide Allergy Verified 07/04/21 14:09 Antibiotics) artificial sweetners Allergy Uncoded 07/04/21 14:09 Review of Systems Review of Systems Narrative: GENERAL: See HPI HEENT: Denies sinus pain, ear pain, sore throat, difficulty swallowing, dizziness. RESPIRATORY: Denies dyspnea, cough, wheezing, hemoptysis, sputum. CARDIOVASCULAR: Denies chest pain, palpitations, orthopnea, edema, GASTROINTESTINAL: See HPI : Denies dysuria, frequency, incontinence, hematuria, urinary retention. MUSCULOSKELETAL: denies weakness, joint pain, or bony pain SKIN: Denies rash, skin lesions, or other NEUROLOGIC: See HPI PSYCHIATRIC: No concerning psychosocial issues. 12 point review of systems is negative except for those stated above Patient History Medical History Chronically low serum potassium Diabetes Diabetic gastroparesis Dislocation of left patella Fatigue Fibromyalgia History of shingles Hyperlipidemia Hypothyroidism Low vitamin D level Multiple sclerosis Obstructive sleep apnea syndrome Osteoarthritis PCOS (polycystic ovarian syndrome) Raynauds disease Type 2 diabetes mellitus Surgical History History of repair of anterior cruciate ligament of right knee Hx of cholecystectomy Family History Family/Other Loud snoring Sleep apnea Depression Dementia Father Loud snoring Sleep apnea Insomnia Restless legs syndrome Obesity Hypertension Heart disease Depression Bipolar disorder Mother Insomnia Hypertension Heart disease Depression Anxiety Family/Other Loud snoring Obesity Hypertension Depression Anxiety Social History marital status: household members: spouse and children Smoking Status: Never smoker alcohol intake: current Smoking Status: Never smoker alcohol intake frequency: a few times a month Substance Use Type: does not use Exam Narrative Exam Narrative: GENERAL: [46 year old patient appears stated age. Well-developed patient, in mild distress. Obviously uncomfortable HEAD: Atraumatic. Normocephalic. EYES: Pupils equal round and reactive. Extraocular motions intact. No scleral icterus. No injection or drainage. ENT: Nose without bleeding, purulent drainage. Throat without erythema, tonsillar hypertrophy or exudate. Airway patent. NECK: Trachea midline. Non tender CARDIOVASCULAR: Regular rate and rhythm without murmurs, gallops, or rubs. RESPIRATORY: Clear to auscultation. Breath sounds equal bilaterally. No wheezes, rales, or rhonchi. GASTROINTESTINAL: Abdomen soft, non-tender, nondistended. EXTREMITIES: No edema or joint tenderness. BACK: Nontender without deformity or crepitance. No flank tenderness. NEURO: AOx3. Cranial nerves 2-12 grossly intact, no obvious focal findings SKIN: No rash or erythema of visible areas Initial Vital Signs Initial Vital Signs: Vital Signs Temperature 98.6 F 08/02/21 18:24 Pulse Rate 102 H 08/02/21 18:24 Respiratory Rate 18 08/02/21 18:24 Blood Pressure 126/74 08/02/21 18:24 Pulse Oximetry 97 08/02/21 18:24 Course Orders Ordered: ED Orders 08/02/21 18:35 CMP [Comprehensive Metabolic Panel] Stat Complete Blood Count AUTO DIFF Stat 08/03/21 02:45 COVID19 -Nasal RAPID/Pre-Proc Stat Discontinued Medications Methylprednisolone 1,000 mg/ (Sodium Chloride) 258 mls @ 258 mls/hr IV NOW ONE Stop: 08/02/21 23:52 Last Infusion: 08/03/21 02:44 Dose: 0 mls/hr Documented by: Admin: 08/03/21 00:18 Dose: 258 mls/hr Documented by: YOVANNY Consultations Consultation #1: Discussed with on-call Neurology at , Dr. Angel. We have reviewed the patient's history and physical and labs. She has reviewed prior neurology notes and recommends treating with for MS exacerbation with Solu-Medrol 1000 mg daily. She does state that if the patient can tolerate the oral approach it could be considered, however patient has persistent nausea and was unable to tolerate even a much smaller steroid course by mouth previously Vital Signs Vital signs: Vital Signs - 8 hr 08/03/21 01:03 Pulse Rate 103 H Respiratory Rate 18 Blood Pressure 147/86 H Pulse Oximetry 98 MDM - Extremity (Nontraumatic) Lab Data Result diagrams: 08/02/21 18:35 08/02/21 18:35 Labs: Lab Results 08/02/21 08/02/21 Range/Units 18:35 18:35 WBC 11.4 H (4.5-11.0) X10^3/uL RBC 5.13 (4.0-5.2) X10^6/uL Hgb 14.1 (12.0-16.0) g/dL Hct 43.4 (36-46) % MCV 84.6 (80-100) fL MCH 27.5 (26-34) PG MCHC 32.5 (30-36) % RDW 15.9 H (11.6-14.8) % Plt Count 319 (150-400) X10^3/uL Neut % (Auto) 54.3 (50-75) % Lymph % (Auto) 34.4 (25-40) % [place] % (Auto) 8.7 (3-14) % Eos % (Auto) 1.8 L (2-4) % Baso % (Auto) 0.8 (0-2) % Neut # (Auto) 6200 (9144-6438) /uL Lymph # (Auto) 3900 (3469-7435) /uL [place] # (Auto) 1000 H (0-900) /uL Eos # (Auto) 200 (0-450) /uL Baso # (Auto) 100 (0-100) /uL Sodium 138 (137-145) mmol/L Potassium 3.8 (3.4-5.1) mmol/L Chloride 111 H (98-107) mmol/L Carbon Dioxide 17 L (22-32) mmol/L BUN 10 (7-17) mg/dL Creatinine 0.88 (0.52-1.04) mg/dL Estimated GFR > 60 (>60) mL/min BUN/Creatinine Ratio 11.4 (6-22) Glucose 152 H (70-100) mg/dL Calcium 8.4 (8.4-10.2) mg/dL Total Bilirubin 0.5 (0.2-1.3) mg/dL AST 31 (14-36) IU/L ALT 24 (<35) IU/L Alkaline Phosphatase 42 (38-126) U/L Total Protein 6.2 L (6.3-8.2) g/dL Albumin 3.6 (3.5-5.0) g/dL Globulin 2.6 (1.7-4.1) g/dL Albumin/Globulin Ratio 1.4 (1.0-2.8) Urine Dip Bedside Urine Glucose Negative Bedside Urine Bilirubin - Negative Bedside Urine Ketone - Negative Urine Specific [place] 1.015 Bedside Urine Occult Blood - Negative Bedside Urine pH 6.0 Bedside Urine Protein - Negative Bedside Urine Urobilinogen - Negative Bedside Urine Nitrite - Negative Bedside Urine Leukocytes - Negative Esterase Discharge Plan Departure Patient Disposition: Admitted As Inpatient Clinical Impression: Multiple sclerosis Admit Date/Time: 08/03/21 02:45 Admit Provider: Airam Cabezas
[2021-08-03] VITALS (9 sets, daily range): BP systolic 114–153; BP diastolic 64–95; PULSE 102–122; RESP 18–19; TEMP 35.2–36.4; O2SAT 96–98; BMI 45.2
[2021-08-03] MEDS: methylPREDNISolone 1,000 MG in SODIUM CHLORIDE 0.9% 250 ML 258 MG IV (00:18)
[2021-08-03 03:06] LABS: COVID19 -Nasal RAPID Negative (Negative)
[2021-08-03] MEDS: SODIUM CHLORIDE 0.9% 1,000 ML 100 ML IV (04:07)
--- NOTE | 2021-08-03 04:53 | P.HP_ITS ---
History of Present Illness History of Present Illness Date Patient Seen: 08/03/21 Time Patient Seen: 04:54 Chief complaint: MS Exacerbation Narrative: Josie Silvestre is a 44-year-old female with multiple medical problems including multiple sclerosis, hypertension, hypothyroidism, and and diabetes type 1 and is managed by a neurologist, at the [facility].? 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 She denies fevers sweats or chills, she does endorse having some nausea but no vomiting, denies chest pain, shortness of breath, abdominal pain, dysuria, diarrhea or constipation. ED consulted with Dr. Angel, Neurologist at the [facility] who recommended a 3-7 day course of high dose solumedrol either IV or PO. Patient has had some nausea, and dosing of the tablets was intolerable for her. She is afebrile, blood pressure 153/95, heart rate 102, respiratory rate 19, oxygen saturation 90% on room air, she weighs 105 kg with a BMI of 45.2. She has a mildly elevated white count of 11.4, with no left shift, chloride is 111, bicarb 17, admission glucose was 152, A1c is 6.0, UA is negative for UTI, and and COVID-19 PCR is negative. Patient History Medical History Chronically low serum potassium Diabetes Diabetic gastroparesis Dislocation of left patella Fatigue Fibromyalgia History of shingles Hyperlipidemia Hypothyroidism Low vitamin D level Multiple sclerosis Obstructive sleep apnea syndrome Osteoarthritis PCOS (polycystic ovarian syndrome) Raynauds disease Type 2 diabetes mellitus Surgical History History of repair of anterior cruciate ligament of right knee Hx of cholecystectomy Family & Social History Family History Family/Other Loud snoring Sleep apnea Depression Dementia Father Loud snoring Sleep apnea Insomnia Restless legs syndrome Obesity Hypertension Heart disease Depression Bipolar disorder Mother Insomnia Hypertension Heart disease Depression Anxiety Family/Other Loud snoring Obesity Hypertension Depression Anxiety Social History: household members spouse,children Safety & Behavioral: Feels Safe in Current Yes Environment Been Physically Hurt or No Threatened By a Person Tobacco & Substance use: Smoking Status Never smoker alcohol intake current alcohol intake frequency a few times a month Substance Use Type does not use Meds Home Medications and Allergies Home Medications Medication Instructions Recorded Confirmed Type atorvastatin 10 mg tablet 1 tab PO QPM 02/07/18 11/18/19 History baclofen 10 mg tablet 1 - 2 tab PO TID PRN 02/07/18 11/18/19 History diazepam 10 mg tablet 1 tab PO Q8H PRN 02/07/18 11/18/19 History eletriptan 40 mg tablet 1 tab PO PRN PRN 02/07/18 11/18/19 History fluconazole 100 mg tablet 1 tab PO PRN PRN 02/07/18 11/18/19 History gabapentin 300 mg capsule 300 mg PO QID 02/07/18 11/18/19 History levothyroxine 200 mcg tablet 200 mcg PO DAILY 02/07/18 11/18/19 History meclizine 12.5 mg tablet 12.5 mg PO PRN PRN 02/07/18 11/18/19 History topiramate 100 mg tablet 100 mg PO DAILY 02/07/18 11/18/19 History triamcinolone acetonide 0.1 % See Rx Instructions .ROUTE .COMPLEX 02/07/18 11/18/19 History topical cream zolpidem 5 mg tablet 5 mg PO BEDTIME PRN 02/07/18 11/18/19 History insulin aspart U-100 100 unit/mL See Rx Instructions .ROUTE .COMPLEX 08/20/18 11/18/19 History (3 mL) subcutaneous pen milnacipran 100 mg tablet 100 mg PO BID 08/20/18 11/18/19 History promethazine 12.5 mg tablet 25 mg PO Q6H PRN 08/20/18 11/18/19 History albuterol sulfate 90 mcg/actuation 2 puff INHALATION Q4-6H PRN #8.5 08/03/19 11/18/19 Rx aerosol inhaler gram aspirin 325 mg tablet 325 mg PO DAILY 08/13/19 11/18/19 History levocetirizine 5 mg tablet 5 mg PO DAILY 08/13/19 11/18/19 History losartan 25 mg tablet 25 mg PO DAILY 08/13/19 11/18/19 History pioglitazone 15 mg tablet (Actos) 15 mg PO DAILY 08/13/19 11/18/19 History ibuprofen 800 mg tablet 600 mg PO Q8H PRN 08/14/19 11/18/19 History trazodone 50 mg tablet 50 mg PO BEDTIME 08/14/19 11/18/19 History potassium chloride 10 mEq 30 meq PO DAILY 11/18/19 11/18/19 History tablet,extended release prednisone 20 mg tablet See Rx Instructions .ROUTE 11/21/19 Rx .COMPLEX #17 tab clindamycin HCl 300 mg capsule 300 mg PO Q6H #40 cap 04/13/20 Rx fluconazole 150 mg tablet 150 mg PO Q3D #2 tab 04/13/20 Rx (Diflucan) ondansetron HCl 4 mg tablet 4 mg PO Q6H PRN #10 tab 04/13/20 Rx (Zofran) cefpodoxime 200 mg tablet 200 mg PO BID #14 tab 12/29/20 Rx doxycycline hyclate 100 mg capsule 100 mg PO BID #14 cap 12/29/20 Rx fluconazole 150 mg tablet 150 mg PO Q3D #2 tab 12/29/20 Rx (Diflucan) oxycodone 5 mg tablet 5 mg PO Q4-6H PRN #10 tab 05/03/21 Rx oxycodone 5 mg tablet 5 mg PO BID PRN #10 tab 06/05/21 Rx ondansetron 4 mg disintegrating 4 mg PO Q8H PRN #14 tab 06/12/21 Rx tablet Allergies Allergy/AdvReac Type Severity Reaction Status Date / Time codeine Allergy Severe Rash Verified 07/04/21 14:09 lovastatin [From Advicor] Allergy Severe Anaphylaxis Verified 07/04/21 14:09 niacin [From Advicor] Allergy Severe Anaphylaxis Verified 07/04/21 14:09 pseudoephedrine Allergy Severe Anaphylaxis Verified 07/04/21 14:09 red (food color) Allergy Severe Anaphylaxis Verified 07/04/21 14:09 Penicillins Allergy Intermediate Rash Verified 07/04/21 14:09 mushroom Allergy Unknown Verified 07/04/21 14:09 ampicillin Allergy Rash Verified 07/04/21 14:09 barium iodide Allergy Verified 07/04/21 14:09 erythromycin base Allergy Verified 07/04/21 14:09 glatiramer (copolymer 1) Allergy Verified 07/04/21 14:09 interferon beta-1a Allergy itching Verified 07/04/21 14:09 and rash Iodinated Contrast Media Allergy Verified 07/04/21 14:09 lisinopril Allergy Kidneys Verified 07/04/21 14:09 shut down metformin Allergy Gastrointestinal Verified 07/04/21 14:09 Upset Sulfa (Sulfonamide Allergy Verified 07/04/21 14:09 Antibiotics) artificial sweetners Allergy Uncoded 07/04/21 14:09 Review of Systems Review of Systems ROS: Yes All systems reviewed with the patient and are negative except as otherwise documented Exam Vital Signs (past 8 hours): - 08/03/21 01:03 08/03/21 04:02 Temperature 97.4 F L Pulse Rate 103 H 102 H Respiratory Rate 18 19 Blood Pressure 147/86 H 153/95 H Pulse Oximetry 98 98 Oxygen Delivery Method Room Air Narrative Exam Narrative: Gen: Alert, oriented, morbidly obese 46 y.o. female, pale HEENT: normocephalic, atraumatic, conjunctiva clear, sclera non-icteric, oral mucosa pink and moist Neck: supple, full ROM, no JVD, trachea is midline Resp: Lungs CTA, non-labored breathing CV: RRR, no murmur or rubs Abd: soft, non-tender, normoactive BTs Skin: no lesions or rashes, dry and intact Neuro: Alert and oriented X 4 w/no focal deficits. Appears to have localized contractions of lower arms and legs. Speech clear and coherent. Extremities: moves all 4 extremities, is ambulatory, negative Zoila?s sign Psyche: normal mood and affect. Objective Labs Result Diagrams: 08/02/21 18:35 08/02/21 18:35 Labs: Laboratory Results - last 24 hr 08/02/21 08/02/21 08/03/21 18:35 18:35 02:45 WBC 11.4 H RBC 5.13 Hgb 14.1 Hct 43.4 MCV 84.6 MCH 27.5 MCHC 32.5 RDW 15.9 H Plt Count 319 Neut % (Auto) 54.3 Lymph % (Auto) 34.4 [place] % (Auto) 8.7 Eos % (Auto) 1.8 L Baso % (Auto) 0.8 Neut # (Auto) 6200 Lymph # (Auto) 3900 [place] # (Auto) 1000 H Eos # (Auto) 200 Baso # (Auto) 100 Sodium 138 Potassium 3.8 Chloride 111 H Carbon Dioxide 17 L BUN 10 Creatinine 0.88 Estimated GFR > 60 BUN/Creatinine Ratio 11.4 Glucose 152 H Calcium 8.4 Total Bilirubin 0.5 AST 31 ALT 24 Alkaline Phosphatase 42 Total Protein 6.2 L Albumin 3.6 Globulin 2.6 Albumin/Globulin Ratio 1.4 SARS-CoV-2 (PCR) Negative Assessment & Plan Assessment & Plan narrative: Josie Silvestre is admitted for further management and treatment an MS exacerbation. 1. Acute on chronic MS exacerbation, present on admission * She will be administered IV methylprednisolone 1 gram daily X 3 days * Cardiac telemetry * Continue home dose of Milnacipran ([place]) 100 mg po bid, will need to bring from home * Continue home doses of baclofen 10 mg po tid prn, gabapenin 300 mg po tid, topiramate 100 mg po daily 2. Diabetes type 1, on an insulin pump * Patient will check own glucose ACHS, report result to nursing, and bolus according to correctional scale * A1c indicates good control at 6.0 * holding pioglitazone * If patient runs out of insulin, she will accept subQ injections * During her past admission, she managed her insulin pump well in the setting of higher glucose burden from the high doses of steroid * Carb controlled diet 3. Essential Hypertension * Continue home dose of losartan 25 mg po daily 4. Dyslipidemia, chronic * Continue home dose of atorvastatin 10 mg po daily 5. Hypothyroidism, chronic * Continue home dose of levothyroxine 200 mcg daily 6. Asthma * Continue albuterol inhaler, may use her own * Continue montelukast 10 mg po at bedtime 7. Morbid Obesity * Patient's BMI is 45.2 * She will be advised on weight loss strategies VTE Prophylaxis: Wells risk score 1.5 [X]Enoxaparin 40 mg subQ once daily Bilateral SCDs Patient is admitted to the inpatient service due to the severity of disease, risks of further disease progression and this stay is expected to exceed 2 midnights. FEN: IV fluids: NS at 100 ml/hour, diet: carb controlled diet, labs: CBC, C/BMP, liver enzymes, Mag Consultants None Dispo: likely discharge to home Code status: Full code as discussed with the patient. [X] I have utilized all available immediate resources to obtain, update, or review of the patient's current medications COVID-19 COVID-19 status: Negative Result date/Date tested (Pos, Neg/Pending): 08/03/21 Scores Wells' Criteria for PE Clinical signs and symptoms of DVT: No PE is #1 Dx or equally likely: No Heart rate > 100: Yes Immobilization at least 3 days or surg in previous 4 weeks: No History of PE or DVT: No Hemoptysis: No Malignancy w/Treatment within 6 months or palliative: No Wells' PE Score total: 1.5 Quality VTE Deep Vein Thrombosis/Pulmonary Embolism Present on Admission: No MIPS - Admit I confirm the patient?s Advance Care Plan is present, Code status is documented, Surrogate decision maker is in patient?s record [If Yes, STOP here]: Yes MIPS - DC The patient has current or prior documentation of left ventricular ejection fraction (LVEF) less than 40%, or moderate or severely depressed left ventricular systolic function.: No
[2021-08-03 05:14] LABS: Basophils Absolute Auto 100 /uL (0-100); Basophils Percent Auto 0.8 % (0-2); Eosinophils Absolute Auto 100 /uL (0-450); Eosinophils Percent Auto 1.2 % (2-4); Hematocrit 44.7 % (36-46); Hemoglobin 14.7 g/dL (12.0-16.0); Lymphocytes Absolute Auto 3200 /uL (1100-4500); Lymphocytes Percent Auto 29.9 % (25-40); Mean Corpuscular Volume 84.7 fL (80-100); Monocytes Absolute Auto 300 /uL (0-900); Monocytes Percent Auto 3.1 % (3-14); Neutrophils Absolute Auto 6900 /uL (1500-7000); Red Blood Cell Count 5.27 X10^6/uL (4.0-5.2); Red Cell Distribution Width 15.9 % (11.6-14.8); White Blood Cell Count 10.6 X10^3/uL (4.5-11.0)
[2021-08-03 05:33] LABS: Add Manual Diff / Slide Review SLIDE REVIEW
[2021-08-03 05:45] LABS: Blood Urea Nitrogen 12 mg/dL (7-17); Carbon Dioxide 26 mmol/L (22-32); Chloride 105 mmol/L (98-107); Estimated Glomerular Filt Rate > 60 mL/min (>60); Glucose 174 mg/dL (70-100); HEMOLYSIS < 15 (0-50); Magnesium 1.9 mg/dL (1.6-2.3); Potassium 3.5 mmol/L (3.4-5.1); Sodium 140 mmol/L (137-145)
[2021-08-03] MEDS: LEVOTHYROXINE 100 MCG TABLET 200 MCG PO (06:25)
[2021-08-03 07:43] LABS: RBC Morphology Normal Morphology
[2021-08-03 07:44] LABS: Platelet Count 303 X10^3/uL (150-400)
[2021-08-03] MEDS: ASPIRIN 325 MG TABLET PO (08:28)
[2021-08-03] MEDS: GABAPENTIN 300 MG CAPSULE PO ×4 (08:28→21:08)
[2021-08-03] MEDS: TRAMADOL 50 MG TABLET PO ×2 (08:28→18:25)
[2021-08-03] MEDS: ENOXAPARIN 40 MG/0.4 ML SYRINGE SUBCUT ×2 (08:29→21:10)
[2021-08-03] MEDS: LOSARTAN 25 MG TABLET PO (08:34)
--- NOTE | 2021-08-03 09:50 | PC.NURSE ---
Addendum entered by Flaquita Douglas R.N. 08/03/21 19:18: Pt refuses to use our sliding scale insulin. Her blood sugar this am was 158, she gave herself 10u of fast acting insulin. Patient then gave herself 20u between 1000 am and 1200 pm as lunch time blood sugar was in the 200s.... Leanna Thakur and Radha both aware of this and patient is allowing us to take her blood sugars with hospital monitors. Original Note: Assess-Patient is alert and oriented x3, she states that is weak from her MS flare up, and is a one person assist with the walker. Given tramadol and denies discomfort. Patient has brought all of her home medications and we will update her med list and then send them down to pharmacy!
[2021-08-03] MEDS: POTASSIUM CHLORIDE 20 MEQ TAB 40 MEQ PO (10:01)
[2021-08-03] MEDS: BACLOFEN 10 MG TABLET PO ×2 (10:44→21:35)
--- NOTE | 2021-08-03 11:22 | CM.DANOTE ---
DCP: Payor: Medicare with secondary for life PCP: Dr. Kimberley Allen MD, pt is a 44 y/o F. admitted for an MS exacerbation. Pt has a history of MS, hypertension, hypothyroidism, and diabetes type 1. Her neurologist at the has recommended a 3-7 day course of high dose solumdrol via IV or PO. Pt experiencing nausea. DCP met with pt this morning bedside. She was laying in bed and alert and oriented x 3. Pt provided DCP with why she was admitted and what she wanted to have done. Pt lives at home with spouse and goes to the infusion clinic in [place] for [place] management. Pt states that she ambulates well and is able to get around on her own. Spouse was at the bedside before arriving. 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 Pt denies any needs for home health or other resources at this time. Whiteboard updated and instructed to call with any other information or questions. P: DCP to continue to follow. Maryjane Sylvester RN/RUBEN Discharge Planning/Care Management CM Discharge Assessment Start: 08/03/21 11:06 Freq: Status: Active Protocol: Document 08/03/21 11:06 DELFINA (Rec: 08/03/21 11:07 DELFINA [id number]) Discharge Planning Assessment Assigned News Cameraman Maryjane Sylvester RN/RUBEN Advance Directives? No History Provided By Patient,Medical Record Prior Living Arrangements House Household Members spouse,children Type of transporation used prior to Drives own vehicle admit Comment Spouse also drives pt Independent with ADL's Yes Is patient alert and oriented? Yes Caregiver for Another No Discharge Plan Home Transportation Arrangement Family Referrals Initiated None needed Whiteboard Updated in Patient Room with Yes name and ext. # of News Cameraman Review Status In Process Please Provide Date Initial DC 08/03/21 Assessment Was Performed Next Review Type Continued Stay Review
--- NOTE | 2021-08-03 11:56 | PM.PN.1 ---
Subjective Subjective Date Patient Seen: 08/03/21 Interval history: BRIEF HPI MORBIDLY OBESE 46-YEAR-OLD FEMALE ADMITTED OVERNIGHT WITH REPORTED WEAKNESS WELL PAIN TO LOWER EXTREMITIES. PATIENT ALSO REPORTED SIGNIFICANT DIFFICULTY GETTING IN AND OUT OF HER CAR SHE FOLLOWS A CARE AT [facility] IN [place]. THIS MORNING SHE REPORTED FEELING BETTER. SOME MILD NAUSEA REPORTED. NO VOMITING NO CHEST PAIN. NO CHEST PALPITATION. SHE DID NOT SLEEP TOO WELL NO INCREASING SHORTNESS OF BREATH. Exam Vital Signs (past 8 hours): - 08/03/21 04:02 08/03/21 05:40 08/03/21 07:00 Temperature 97.4 F L 97.3 F L 95.8 F L Pulse Rate 102 H 105 H 106 H Respiratory Rate 19 19 18 Blood Pressure 153/95 H 146/79 H 148/87 H Pulse Oximetry 98 97 98 08/03/21 09:08 Temperature Pulse Rate Respiratory Rate Blood Pressure Pulse Oximetry 96 Oxygen Delivery Method Room Air Narrative Exam Narrative: NO ACUTE DISTRESS. PATIENT IS ALERT ORIENTED X3. MORBIDLY OBESE VITAL SIGNS STABLE HEAD ATRAUMATIC NORMOCEPHALIC NECK : SUPPLE WITHOUT ADENOPATHY NO CAROTID BRUITS EYE: EOMI, PERRLA, NORMAL CONJUNCTIVA; NO JAUNDICE CHEST: REGULAR RATE. NO RUBS. PMI IS NON DISPLACED. NO MURMURS; NORMAL S1-S2 PULMONARY: DECREASED BS OVER THE BASES. MILD BIBASILAR CRACKLES NOTED; NO INCREASED DULLNESS TO PERCUSSION ABDOMEN: OBESE BUT SOFT. NONTENDER. NONDISTENDED. BOWEL SOUNDS ARE PRESENT IN ALL 4 QUADRANTS. NO MASS. EXTREMITIES: NO EDEMA.. NO CYANOSIS CLUBBING NOTED. NEURO: CRANIAL NERVES 2-12 GROSSLY INTACT. NO FOCAL NEUROLOGICAL DEFICIT NOTED. MSK: NORMAL RANGE OF MOTION FOR AGE. NO JOINT EFFUSION. STRENGTH 4/5 IN ALL EXTREMITIES. POOR MUSCULATURE. SKIN: NORMAL FOR ETHNICITY; NO ECCHYMOSIS. NO LESION. GOOD TURGOR.; NO RASHES : NORMAL EXTERNAL GENITALIA. PSYCH : APPROPRIATE MOOD AND AFFECT. ALERT AWAKE ORIENTED X3 Objective Labs Result Diagrams: 08/03/21 04:08 08/03/21 04:08 Labs: Laboratory Results - last 24 hr 08/02/21 08/02/21 08/03/21 18:35 18:35 02:45 WBC 11.4 H RBC 5.13 Hgb 14.1 Hct 43.4 MCV 84.6 MCH 27.5 MCHC 32.5 RDW 15.9 H Plt Count 319 Neut % (Auto) 54.3 Lymph % (Auto) 34.4 [place] % (Auto) 8.7 Eos % (Auto) 1.8 L Baso % (Auto) 0.8 Neut # (Auto) 6200 Lymph # (Auto) 3900 [place] # (Auto) 1000 H Eos # (Auto) 200 Baso # (Auto) 100 RBC Morphology Sodium 138 Potassium 3.8 Chloride 111 H Carbon Dioxide 17 L BUN 10 Creatinine 0.88 Estimated GFR > 60 BUN/Creatinine Ratio 11.4 Glucose 152 H Hemoglobin A1c Calcium 8.4 Magnesium Total Bilirubin 0.5 AST 31 ALT 24 Alkaline Phosphatase 42 Total Protein 6.2 L Albumin 3.6 Globulin 2.6 Albumin/Globulin Ratio 1.4 SARS-CoV-2 (PCR) Negative 08/03/21 08/03/21 08/03/21 04:08 04:08 04:08 WBC 10.6 RBC 5.27 H Hgb 14.7 Hct 44.7 MCV 84.7 MCH 28.0 MCHC 33.0 RDW 15.9 H Plt Count 303 Neut % (Auto) 65.0 Lymph % (Auto) 29.9 [place] % (Auto) 3.1 Eos % (Auto) 1.2 L Baso % (Auto) 0.8 Neut # (Auto) 6900 Lymph # (Auto) 3200 [place] # (Auto) 300 Eos # (Auto) 100 Baso # (Auto) 100 RBC Morphology Normal morphology Sodium 140 Potassium 3.5 Chloride 105 Carbon Dioxide 26 BUN 12 Creatinine 1.00 Estimated GFR > 60 BUN/Creatinine Ratio 12.0 Glucose 174 H Hemoglobin A1c 6.0 Calcium 9.0 Magnesium 1.9 Total Bilirubin AST ALT Alkaline Phosphatase Total Protein Albumin Globulin Albumin/Globulin Ratio SARS-CoV-2 (PCR) [facility] Medical History Chronically low serum potassium Diabetes Diabetic gastroparesis Dislocation of left patella Fatigue Fibromyalgia History of shingles Hyperlipidemia Hypothyroidism Low vitamin D level Multiple sclerosis Obstructive sleep apnea syndrome Osteoarthritis PCOS (polycystic ovarian syndrome) Raynauds disease Type 2 diabetes mellitus Surgical History History of repair of anterior cruciate ligament of right knee Hx of cholecystectomy Family History Family/Other Loud snoring Sleep apnea Depression Dementia Father Loud snoring Sleep apnea Insomnia Restless legs syndrome Obesity Hypertension Heart disease Depression Bipolar disorder Mother Insomnia Hypertension Heart disease Depression Anxiety Family/Other Loud snoring Obesity Hypertension Depression Anxiety Social History marital status: household members: spouse and children Smoking Status: Never smoker alcohol intake: current Assessment & Plan Assessment & Plan narrative: IMPRESSION POSSIBLE ACUTE EXACERBATION OF MUSCULAR SCLEROSIS. MORBID OBESITY. LIFESTYLE CHANGES RECOMMENDED HYPERLIPIDEMIA PER HISTORY DIABETES TYPE 2. INSULIN DEPENDENT DIABETIC ASSOCIATED GASTROPARESIS PER HISTORY OBESITY HYPOVENTILATORY SYNDROME VERSUS CARA HISTORY ACID REFLUX DISEASE /GERD PER HISTORY INSOMNIA PER HISTORY HYPOTHYROIDISM PER HISTORY OSTEOARTHRITIS PER HISTORY PLAN CONTINUE WITH HIGH-DOSE IV SOLU-MEDROL MONITOR CLOSELY FOR ANY SIGN OF ACUTE COMPLICATION WHILE ON STEROIDS THERAPY SINCE PATIENT IS DIABETIC, DICTATION IS THAT BLOOD SUGAR WILL BE LIKELY DIFFICULT TO CONTROL WILL START ON LONG-ACTING INSULIN IF INDICATED CONTINUE SLIDING SCALE INSULIN FOR NOW DIABETIC DIET ORDERED BLOOD GLUCOSE LEVEL TO BE CHECKED A.C. AND HS. PATIENT ALSO BE CONTINUED ON HOME MEDICATIONS HOWEVER WILL HOLD TRIAMTERENE/HCTZ POTASSIUM IS ON THE LOWER SIDE THIS MORNING WILL ADD DAILY POTASSIUM REPLACEMENT MONITOR LABS CLOSELY DISCONTINUE IV FLUID CONSULT PT AND OT TO EVALUATE AND TREAT MAINTAIN FALL PRECAUTION ALL TIME ADDITIONAL MANAGEMENT PER CLINICAL COURSE DISCHARGE IN NEXT 24-48 HOURS TO HOME Time Spent With Patient Critical Care time: I spent a total of [] minutes of critical care time on this patient's care today; this time is exclusive of procedural time. Quality VTE Deep Vein Thrombosis/Pulmonary Embolism Present on Admission: No
[2021-08-03] MEDS: PIOGLITAZONE 15 MG TABLET PO (13:44)
[2021-08-03] MEDS: AMLODIPINE 5 MG TABLET PO (13:45)
[2021-08-03] MEDS: MONTELUKAST 10 MG TABLET PO (13:45)
[2021-08-03] MEDS: SODIUM CHLORIDE 0.9% IV ×3 (13:48→21:08)
[2021-08-03] MEDS: METHYLPREDNISOLONE IV ×3 (13:48→21:08)
[2021-08-03] MEDS: MILNACIPRAN 100 MG 100 EACH PO ×2 (13:53→21:13)
[2021-08-03] MEDS: POTASSIUM CHLORIDE 20 MEQ/15 ML UDC 40 MEQ PO (13:58)
[2021-08-03] MEDS: FENOFIBRATE, MICRONIZED 67 MG CAPSULE 134 MG PO (18:06)
[2021-08-03] MEDS: TRAZODONE 50 MG TABLET PO (21:08)
[2021-08-03] MEDS: ATORVASTATIN 20 MG TABLET 10 MG PO (21:08)
[2021-08-03] MEDS: LEFLUNOMIDE 20 MG TABLET PO ×2 (21:11→21:12)
[2021-08-03] MEDS: ONDANSETRON 4 MG/2 ML INJ IV (22:41)
[2021-08-04] VITALS (8 sets, daily range): BP systolic 109–132; BP diastolic 63–73; PULSE 112–120; RESP 17–18; TEMP 35.2–36.7; O2SAT 94–98
[2021-08-04 05:43] LABS: Add Manual Diff / Slide Review NO; Basophils Absolute Auto 100 /uL (0-100); Basophils Percent Auto 0.4 % (0-2); Eosinophils Absolute Auto 0 /uL (0-450); Hematocrit 38.9 % (36-46); Hemoglobin 12.4 g/dL (12.0-16.0); Lymphocytes Absolute Auto 2300 /uL (1100-4500); Lymphocytes Percent Auto 17.2 % (25-40); Mean Corpuscular Hemoglobin 27.1 PG (26-34); Mean Corpuscular Volume 84.8 fL (80-100); Monocytes Absolute Auto 500 /uL (0-900); Monocytes Percent Auto 3.8 % (3-14); Neutrophils Absolute Auto 10700 /uL (1500-7000); Neutrophils Percent Auto 78.6 % (50-75); Platelet Count 308 X10^3/uL (150-400); Red Blood Cell Count 4.59 X10^6/uL (4.0-5.2); White Blood Cell Count 13.6 X10^3/uL (4.5-11.0)
[2021-08-04] MEDS: PANTOPRAZOLE DR 20 MG TABLET PO (06:42)
[2021-08-04] MEDS: LEVOTHYROXINE 100 MCG TABLET 200 MCG PO (06:42)
[2021-08-04] MEDS: GABAPENTIN 300 MG CAPSULE PO ×4 (09:09→21:33)
[2021-08-04] MEDS: POTASSIUM CHLORIDE 10 MEQ TAB 30 MEQ PO (09:09)
[2021-08-04] MEDS: AMLODIPINE 5 MG TABLET PO (09:09)
[2021-08-04] MEDS: PIOGLITAZONE 15 MG TABLET PO (09:09)
[2021-08-04] MEDS: MONTELUKAST 10 MG TABLET PO (09:09)
[2021-08-04] MEDS: LOSARTAN 25 MG TABLET PO (09:09)
[2021-08-04] MEDS: MILNACIPRAN 100 MG 100 EACH PO ×2 (09:10→21:39)
[2021-08-04] MEDS: SODIUM CHLORIDE 0.9% IV ×4 (09:11→21:39)
[2021-08-04] MEDS: METHYLPREDNISOLONE IV ×4 (09:11→21:39)
[2021-08-04] MEDS: ENOXAPARIN 40 MG/0.4 ML SYRINGE SUBCUT ×2 (09:11→21:34)
[2021-08-04] MEDS: ASPIRIN 325 MG TABLET PO (09:12)
--- NOTE | 2021-08-04 10:10 | OT.IPNOTE ---
Attempted OT eval with pt and at this time pt states having a headache / and states not wanting to do any OT today. Able to get pt's prior level of function and home set-up. Notified nurse of pt's request for pain medications for her headache. To check on pt tomorrow for OT eval.
[2021-08-04] MEDS: OXYCODONE IR 5 MG TABLET PO ×2 (10:19→20:12)
--- NOTE | 2021-08-04 11:01 | PM.DS.1 ---
History of Present Illness History of Present Illness Date Patient Seen: 08/05/21 Chief complaint: MS Exacerbation Narrative: History of Present Illness History of Present Illness Date Patient Seen: 08/03/21 Time Patient Seen: 04:54 Chief complaint: MS Exacerbation Narrative: Josie Silvestre is a 44-year-old female with multiple medical problems including multiple sclerosis, hypertension, hypothyroidism, and and diabetes type 1 and is managed by a neurologist, at the [facility].? 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 She denies fevers sweats or chills, she does endorse having some nausea but no vomiting, denies chest pain, shortness of breath, abdominal pain, dysuria, diarrhea or constipation.? ED consulted with Dr. Angel, Neurologist at the [facility] who recommended a 3-7 day course of high dose solumedrol either IV or PO. Patient has had some nausea, and dosing of the tablets was intolerable for her. She is afebrile, blood pressure 153/95, heart rate 102, respiratory rate 19, oxygen saturation 90% on room air, she weighs 105 kg with a BMI of 45.2.? She has a mildly elevated white count of 11.4, with no left shift, chloride is 111, bicarb 17, admission glucose was 152, A1c is 6.0, UA is negative for UTI, and and COVID-19 PCR is negative. Discharge Providers Provider Date of admission: 08/03/21 02:45 Discharge Date: 08/04/21 Primary care physician: Cedric Noel DO Consults: 08/03/21 12:07 Consult to Occupational Therapy Evaluate & Treat Comment: Physician Instructions: Evaluate and treat 08/04/21 07:51 Consult to Physical Therapy Evaluate & Treat Comment: Physician Instructions: Evaluate and Treat Discharge provider: Blu Nieves DO Summary Hospital Course Discharge Diagnosis: ?POSSIBLE ? ACUTE RELAPSE OF MUSCULAR SCLEROSIS.? IMPROVED ?MORBID OBESITY.? LIFESTYLE CHANGES RECOMMENDED ?HYPERLIPIDEMIA PER HISTORY ?DIABETES TYPE 2.? INSULIN DEPENDENT ?DIABETIC ASSOCIATED GASTROPARESIS PER HISTORY ?OBESITY HYPOVENTILATORY SYNDROME VERSUS CARA HISTORY ?ACID REFLUX DISEASE /GERD PER HISTORY ?INSOMNIA PER HISTORY ?HYPOTHYROIDISM PER HISTORY ?OSTEOARTHRITIS PER HISTORY Hospital Course: THIS IS A 46-YEAR-OLD FEMALE WHO WAS ADMITTED TO THE HOSPITAL WITH A SUSPICION OF ACUTE RELAPSE FROM HER MS. SHE WAS STARTED ON SOLU-MEDROL. SHE HAS NOT SHOWN ANY SIGN OF RESPIRATORY DIFFICULTIES. SHE IS GETTING STRONGER. SHE IS ABLE TO AMBULATE FAIRLY ADEQUATELY WITHOUT SIGNIFICANT ASSISTANCE. HER LAB HAS REMAINED FAIRLY STABLE WELL. THERE IS NO SIGN OF INFECTION. SHE DOES NOT APPEAR TO BE TOXIC. SHE WILL BE DISCHARGED TODAY ON A LONG TAPER DOSE OF ORAL PREDNISONE. SHE WILL NEED TO FOLLOW-UP FOR OUTPATIENT PROVIDER , MAINLY HER NEUROLOGIST FOR FURTHER MANAGEMENT AND CARE INDICATED. MY RECOMMENDATION IS FOR PATIENT TO FOLLOW-UP AT THE FACILITY WITH NEUROLOGY SERVICES FOR SYMPTOM RECUR. ADDITIONAL MANAGEMENT PER CLINICAL COURSE ACTIVITIES TOLERATED WITH FALL PRECAUTIONS FOLLOW-UP WITH PRIMARY CARE PHYSICIAN AND NEUROLOGY WITHIN 1-2 WEEKS WILL FOLLOW UP EARLIER IF NEEDED CARDIAC DIET Status at Discharge Cognitive/behavioral status at discharge: oriented Functional status at discharge: independent ambulation Overall status at discharge: patient is progressing back to baseline Time Spent with Patient Time spent: Greater than 30 minutes Exam Vital Signs (past 8 hours): - 08/04/21 06:23 08/04/21 07:00 08/04/21 09:00 Temperature 95.8 F L Pulse Rate 112 H Respiratory Rate 18 18 18 Blood Pressure 132/73 Pulse Oximetry 94 97 Oxygen Delivery Method Room Air Oxygen Flow Rate 0 Narrative Exam Narrative: NO ACUTE DISTRESS.? PATIENT IS ALERT ORIENTED X3. ? MORBIDLY OBESE VITAL SIGNS STABLE HEAD ATRAUMATIC NORMOCEPHALIC NECK : SUPPLE WITHOUT ADENOPATHY NO CAROTID BRUITS EYE:? EOMI, PERRLA, NORMAL CONJUNCTIVA; NO JAUNDICE CHEST:? REGULAR RATE.? ? NO RUBS.? PMI IS NON DISPLACED.? NO MURMURS; NORMAL S1-S2 PULMONARY:? DECREASED BS OVER THE BASES.? MILD BIBASILAR CRACKLES NOTED; NO INCREASED DULLNESS TO PERCUSSION ABDOMEN: ? OBESE BUT SOFT.? NONTENDER.? NONDISTENDED.? BOWEL SOUNDS ARE PRESENT IN ALL 4 QUADRANTS.? NO MASS. EXTREMITIES: NO EDEMA..? NO CYANOSIS CLUBBING NOTED. NEURO:? CRANIAL NERVES 2-12 GROSSLY INTACT. NO FOCAL NEUROLOGICAL DEFICIT NOTED. MSK:? NORMAL RANGE OF MOTION FOR AGE.? NO JOINT EFFUSION. STRENGTH 4/5 IN ALL EXTREMITIES.? POOR MUSCULATURE. SKIN:? NORMAL FOR ETHNICITY; NO ECCHYMOSIS.? NO LESION. ? GOOD? TURGOR.; NO RASHES :? NORMAL EXTERNAL GENITALIA. PSYCH :? APPROPRIATE MOOD AND AFFECT.? ALERT AWAKE ORIENTED X3 Objective Labs Result Diagrams: 08/05/21 06:21 08/05/21 06:21 Labs: Laboratory Results - last 24 hr 08/04/21 05:20 WBC 13.6 H RBC 4.59 Hgb 12.4 Hct 38.9 MCV 84.8 MCH 27.1 MCHC 32.0 RDW 16.0 H Plt Count 308 Neut % (Auto) 78.6 H Lymph % (Auto) 17.2 L [place] % (Auto) 3.8 Eos % (Auto) 0.0 L Baso % (Auto) 0.4 Neut # (Auto) 21896 H Lymph # (Auto) 2300 [place] # (Auto) 500 Eos # (Auto) 0 Baso # (Auto) 100 PFSH Medical History Chronically low serum potassium Diabetes Diabetic gastroparesis Dislocation of left patella Fatigue Fibromyalgia History of shingles Hyperlipidemia Hypothyroidism Low vitamin D level Multiple sclerosis Obstructive sleep apnea syndrome Osteoarthritis PCOS (polycystic ovarian syndrome) Raynauds disease Type 2 diabetes mellitus Surgical History History of repair of anterior cruciate ligament of right knee Hx of cholecystectomy Family History Family/Other Loud snoring Sleep apnea Depression Dementia Father Loud snoring Sleep apnea Insomnia Restless legs syndrome Obesity Hypertension Heart disease Depression Bipolar disorder Mother Insomnia Hypertension Heart disease Depression Anxiety Family/Other Loud snoring Obesity Hypertension Depression Anxiety Social History marital status: household members: spouse and children Smoking Status: Never smoker alcohol intake: current Discharge Plan Discharge Plan Patient Disposition: Home Discharge orders & Medications Prescriptions: New atorvastatin [Lipitor] 20 mg Tablet 10 mg PO BEDTIME Qty: 60 0RF meclizine 12.5 mg Tablet 12.5 mg PO Q6HR PRN (Reason: Vertigo) Qty: 20 0RF tramadol 50 mg Tablet 50 mg PO Q4H PRN (Reason: Pain, Severe (7-10)) Qty: 16 0RF promethazine 25 mg Tablet 12.5 mg PO Q6HR PRN (Reason: NAUSEA/VOMITING) Qty: 20 0RF losartan 25 mg Tablet 25 mg PO DAILY Qty: 30 0RF oxycodone 5 mg Tablet 5 mg PO Q4HR PRN (Reason: Pain, Severe (7-10)) Qty: 10 0RF prednisone 10 mg tablet 10 mg PO DIRECTED Qty: 180 0RF Rx Instructions: 80MG PO X 5 DAYS 70MG PO X 5 DAYS 60MG PO X 5 DAYS 50MG PO X 7 DAYS 40MG PO X 5 DAYS 30MG PO X 5 DAYS 20MG PO X 5 DAYS 10MG PO X 5 DAYS 5 MG PO X 5 DAYS Continued baclofen 10 mg tablet 2 tab PO TID PRN (Reason: Pain (Scale Score 1-3)) 0RF diazepam 10 mg tablet 1 tab PO BID 0RF gabapentin 300 mg capsule 300 mg PO QID 0RF levothyroxine 200 mcg tablet 200 mcg PO DAILY 0RF topiramate 100 mg tablet 100 mg PO DAILY 0RF eletriptan 40 mg tablet 1 tab PO PRN PRN (Reason: Migraine Headache) 0RF Label Comments: TK 1 T PO PRN FOR MIGRAINE MAY REPEAT DOSE IN 2 HOURS. MAX DOSE OF 2 TS PER 24 HOURS zolpidem 5 mg tablet 5 mg PO BEDTIME PRN (Reason: Insomnia) 0RF Label Comments: TK 1 T PO AT NIGHT PRF INSOMNIA insulin aspart U-100 100 unit/mL (3 mL) insulin pen See Rx Instructions .ROUTE .COMPLEX 0RF Label Comments: ADM 30 UNI SC TID WC Rx Instructions: has insulin pump. takes 1 unit of insulin per every 2 carbs. milnacipran 100 mg tablet 100 mg PO BID 0RF albuterol sulfate 90 mcg/actuation HFA aerosol inhaler 2 puff INHALATION Q4-6H PRN (Reason: shortness of breath or wheezing) Qty: 8.5 0RF Rx Instructions: use with spacer aspirin 325 mg Tablet 81 mg PO DAILY 0RF pioglitazone [Actos] 15 mg Tablet 15 mg PO DAILY 0RF ibuprofen 800 mg tablet 600 mg PO Q8H PRN (Reason: pain) 0RF trazodone 50 mg Tablet 50 mg PO BEDTIME 0RF Rx Instructions: take one to two tablets at bed time up to 100mg by mouth potassium chloride 10 mEq Tablet Extended Release 30 meq PO DAILY 0RF pioglitazone 15 mg Tablet 15 mg PO DAILY 0RF atorvastatin 10 mg Tablet 10 mg PO BEDTIME 0RF amlodipine 5 mg Tablet 5 mg PO DAILY 0RF leflunomide 20 mg Tablet 20 mg PO DAILY 0RF omeprazole 20 mg Capsule,Delayed Release(Dr/Ec) 20 mg PO DAILY 0RF montelukast 10 mg Tablet 10 mg PO DAILY 0RF triamterene-hydrochlorothiazid 75-50 mg Tablet 1 tab PO DAILY 0RF fenofibrate 150 mg Capsule 145 mg PO 1700 0RF Discontinued oxycodone 5 mg tablet 5 mg PO BID PRN (Reason: pain) Qty: 10 0RF Follow up/Referrals: Cedric Noel DO [Primary Care Provider] - Diet/Activity/Treatments Diet: Low-fat, Low-sodium and Low-cholesterol Activity: TOLERATED ; FLL PRECAUTIONS Discharge Data Primary Care Provider: Cedric Noel Quality VTE Deep Vein Thrombosis/Pulmonary Embolism Present on Admission: No
--- NOTE | 2021-08-04 11:43 | CM.DPC ---
DCP Cont: Per MD, pt is medically stable for discharge to home today and f/u with PCP. DCP reviewed and no needs identified. Pt to discharge home via Spouse POV. Maryjane Sylvester RN/DCP
[2021-08-04] MEDS: ONDANSETRON 4 MG/2 ML INJ IV (12:47)
--- NOTE | 2021-08-04 13:50 | PT.IIE ---
Current Diagnoses Multiple sclerosis (08/03/21) Medical History (Last Reviewed 08/03/21 @ 02:02 by Khanh Quesada DO) Chronically low serum potassium Diabetes Diabetic gastroparesis Dislocation of left patella Fatigue Fibromyalgia History of shingles Hyperlipidemia Hypothyroidism Low vitamin D level Multiple sclerosis Obstructive sleep apnea syndrome Osteoarthritis PCOS (polycystic ovarian syndrome) Raynauds disease Type 2 diabetes mellitus Physical Therapy Inpatient Evaluation/Re-Eval M1 PT/OT-IP Prior Functional Status Start: 08/04/21 16:09 Freq: NEEDED Status: Active Protocol: Document 08/04/21 13:50 AB (Rec: 08/04/21 16:33 AB [email or web address]) Medical Review Prior Functional Status Medical History Reviewed Yes Communication able to make needs known Mobility and Gait pt is modified independent with all mobilities and ambulation without AD indoors but occasionally uses a 4WW or manual w/c depending on how she feels; uses a 4WW or manual w/c for outdoor mobility Prior Functional Level (Other details) pt stated that she has been doing almost everything at home and her family does not assist her Social History Household Members spouse,children Living Arrangements House Number of Floors (Floors) One Floor Number of Stairs To Enter/Railing? 1 step to enter the house 1 step to the bedroom Home Environment Standard Height Toilet,Walk in Shower Home Equipment Four Wheel Walker,Manual Wheelchair,Shower Seat without Backrest,Hand Held Shower, Grab Bars Near Toilet Additional Social History Comment pt stated that her spouse and 1 child cannot assist her M2 PT-IP Current Condition Start: 08/04/21 16:09 Freq: NEEDED Status: Active Protocol: Document 08/04/21 13:50 AB (Rec: 08/04/21 16:33 AB [email or web address]) Physical Therapy Current Condition Current Condition Evaluation Date 08/04/21 Treatment Diagnosis MS exacerbation; difficulty in walking Onset Date 08/03/21 M3 PT-IP Subjective Start: 08/04/21 16:09 Freq: NEEDED Status: Active Protocol: Document 08/04/21 13:50 AB (Rec: 08/04/21 16:33 AB [email or web address]) Subjective Physical Therapy Visit Type Type Initial Evaluation Visit Start Time 13:50 Visit Stop Time 14:45 Total Visit Minutes 55 Number of C SOFTWARE DEVELOPER Visits 0 Physical Therapy Visit Comments Patient Comments agreeable to do PT M4 PT-IP Mobility and Gait Start: 08/04/21 16:09 Freq: NEEDED Status: Active Protocol: Document 08/04/21 13:50 AB (Rec: 08/04/21 16:33 AB [id number]) PT-Bed Mobility Assessment Supine to Sit Supine to Sit Standby Assistance,Head of Bed Elevated Sit to Supine Sit to Supine Standby Assistance,Head of Bed Elevated PT-Transfer Assessment Sit to and From Stand Sit to and from Stand Standby Assistance,1 Person Assistance,Use of Upper Extremities Equipment Transfer Assistive Device Gait Belt,Front Wheeled Walker Orthotic/Prosthetic Devices or Brace: No Transfers Transfer Destination Chair Transfer Technique ambulated Transfer Ability Level of Assist Standby Assistance,1 Person Assistance,Use of Upper Extremities Comments Mobility Comments pt completed supine to sit SBA with HOB elevated. pt stated that she has 4 pillows that she uses for her head at home. completed sit to stand SBA and ambulated ~ 25ft using FWW and sat on window bench. pt agreed to do stair climbing. pt uses 4WW at home. completed sit to stand SBA and ambulated using 4WW SBA ~ 30 ft. completed up/down platform step using 4WW min A. pt needs assist to lift 4WW up the step. pt stated that her spouse will be able to assist her with the walker. pt ambulated to her room and back to bed. completed sit to supine SBA. positioned pt in bed. call light and table placed within reach. Gait Assessment Gait Gait Assistance Required: Standby Assistance Distance (Feet) 30 Able to Maintain Weight Bearing Status Yes During Gait Assistive Devices Assistive Device Gait Belt,Front Wheeled Walker ,4 Wheeled Walker Orthotic/Prosthetic Devices or Brace: Yes Gait Deviations General Gait Pattern Decreased Stride Length, Decreased Feet Clearance,Step- to Gait Factors Limiting Gait Function Factors Limiting Gait Function Decreased Activity Tolerance, Decreased Sensation,Decreased Strength,Poor Balance,Poor Safety Awareness Stair Climbing Assessment Evaluation Level of Assist On Stairs Minimal Assistance Devices Stair Climbing Assistive Devices Four Wheel Walker Technique/Endurance Stair Climbing Direction Ascend and Descend Stair Climbing Technique Step to Step Number of Steps Climbed 1 Query Text: PT-Balance Assessment Sitting Balance and Reactions Static Sitting Balance Ability Good Dynamic Sitting Balance Ability Good Standing Balance and Reactions Static Standing Balance Ability Fair Dynamic Standing Balance Ability Fair Device Used 4WW M5 PT-IP Objective Assessments Start: 08/04/21 16:09 Freq: NEEDED Status: Active Protocol: Document 08/04/21 13:50 AB (Rec: 08/04/21 16:33 AB [email or web address]) Orientation Orientation/Cognition Level of Alertness Alert Orientation Name,Age,Birthday,Month,Date, Year,Day of Week,Place, Situation Language Function Ability No Deficits Noted Safety Awareness Understands Safety Issues Memory Description No Deficits Noted Gross Range of Motion Lower Extremity ROM Assessment Within Functional Limits Strength Lower Extremity Strength Assessment Bilaterally Impaired Hip 3+/5 Knee 3+/5 Muscle Tone Muscle Tone WNL Yes M6 PT-IP Treatment Start: 08/04/21 16:09 Freq: NEEDED Status: Active Protocol: Document 08/04/21 13:50 AB (Rec: 08/04/21 16:33 AB [id number]) Physical Therapy Treatment Education Education Provided Safety M7 PT-IP Assessment and Plan Start: 08/04/21 16:09 Freq: NEEDED Status: Active Protocol: Document 08/04/21 13:50 AB (Rec: 08/04/21 16:33 AB [email or web address]) PT Summary Assessment and Plan Potential Rehabilitation Potential Fair Status of Condition at Evaluation Stable Summary Impairments Pain,ROM,Strength,Balance, Coordination,Sensation,Tone, Cognition,Bed Mobility, Transfers,Gait,Activity Tolerance Assessment Summary pt requiring SBA with mobility using 4WW and min A with stair climbing. pt has her spouse at home but stated that spouse does not assist her. pt with decrease activity tolerance affecting mobility. pt stated that she just had so much stresses at home and aggravating her MS. will continue to assess progress. Goals Bed Mobility Goal Independent Transfer Goal Independent,Four Wheeled Walker Gait Goal Independent,Four Wheel Walker Gait Distance 100 Other Goals up/down platform step using 4WW mod I Days to Meet Goals 5 Frequency of Treatment Frequency Of Treatment Once a Day Treatment Plan Physical Therapy Treatment Plan Bed Mobility Training,Transfer Training,Gait Training, Therapeutic Exercise,Balance Retraining,Discharge Planning, Hot or Cold Pack,Neuromuscular Re-ed,Coordination Retraining ,Manual Therapy Recommendations To Nursing Amount of Assist Needed Standby Assistance Discharge Recommendations PT Discharge Recommendations Home with Assistance Transportation Needs at Discharge Private Vehicle
--- NOTE | 2021-08-04 15:53 | PC.NURSE ---
Pt condition remain essentially unchanged Ambulated in hallway w/PT Pt HL intact/patent; receiving steroids as per orders. Pt using own insulin pump due to large doses at times. Call light w/in reach, pt calls appropriately for needs. Continue w/plan of care.
[2021-08-04] MEDS: FENOFIBRATE, MICRONIZED 67 MG CAPSULE 134 MG PO (18:54)
[2021-08-04] MEDS: diphenhydrAMINE 50 MG/ML VIAL IV (20:00)
[2021-08-04] MEDS: ATORVASTATIN 20 MG TABLET 10 MG PO (21:30)
[2021-08-04] MEDS: LEFLUNOMIDE 20 MG TABLET PO (21:39)
[2021-08-05] VITALS (9 sets, daily range): BP systolic 113–134; BP diastolic 57–78; PULSE 64–120; RESP 16–18; TEMP 36.3–37.6; O2SAT 91–98
--- NOTE | 2021-08-05 00:09 | PC.NURSE ---
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 Requested IV Benadryl. Order obtained and 50 mg given IV push. Pt advised was helpful. Pt refuses hospital insulin, has insulin pump she is controlling. SpO2 alarm going off as pt was sleeping, she has sleep apnea and was not using CPAP. CPAP was set up and pt's SpO2 remaining in mid 90's.
[2021-08-05] MEDS: PANTOPRAZOLE DR 20 MG TABLET PO (06:10)
[2021-08-05] MEDS: LEVOTHYROXINE 100 MCG TABLET 200 MCG PO (06:30)
[2021-08-05 06:42] LABS: Add Manual Diff / Slide Review NO; Basophils Absolute Auto 0 /uL (0-100); Basophils Percent Auto 0.2 % (0-2); Eosinophils Absolute Auto 0 /uL (0-450); Hematocrit 35.4 % (36-46); Hemoglobin 11.6 g/dL (12.0-16.0); Lymphocytes Absolute Auto 2100 /uL (1100-4500); Lymphocytes Percent Auto 18.6 % (25-40); Mean Corpuscular HGB Conc 32.8 % (30-36); Mean Corpuscular Hemoglobin 27.7 PG (26-34); Mean Corpuscular Volume 84.4 fL (80-100); Monocytes Absolute Auto 500 /uL (0-900); Monocytes Percent Auto 4.6 % (3-14); Neutrophils Absolute Auto 8700 /uL (1500-7000); Neutrophils Percent Auto 76.6 % (50-75); Platelet Count 283 X10^3/uL (150-400); Red Blood Cell Count 4.19 X10^6/uL (4.0-5.2); Red Cell Distribution Width 16.1 % (11.6-14.8); White Blood Cell Count 11.3 X10^3/uL (4.5-11.0)
[2021-08-05 07:05] LABS: Magnesium 2.1 mg/dL (1.6-2.3)
[2021-08-05 07:06] LABS: Alanine Aminotransferase 23 IU/L (<35); Albumin 3.1 g/dL (3.5-5.0); Albumin Globulin Ratio 1.3 (1.0-2.8); Alkaline Phosphatase 41 U/L (38-126); Aspartate Aminotransferase 25 IU/L (14-36); BUN Creatinine Ratio 28.6 (6-22); Bilirubin Total 0.2 mg/dL (0.2-1.3); Blood Urea Nitrogen 28 mg/dL (7-17); Calcium 8.5 mg/dL (8.4-10.2); Carbon Dioxide 28 mmol/L (22-32); Chloride 106 mmol/L (98-107); Estimated Glomerular Filt Rate > 60 mL/min (>60); Globulin 2.4 g/dL (1.7-4.1); Glucose 146 mg/dL (70-100); HEMOLYSIS < 15 (0-50); Potassium 4.5 mmol/L (3.4-5.1); Sodium 138 mmol/L (137-145); Total Protein 5.5 g/dL (6.3-8.2)
[2021-08-05] MEDS: SODIUM CHLORIDE 0.9% IV ×4 (08:58→21:18)
[2021-08-05] MEDS: METHYLPREDNISOLONE IV ×4 (08:58→21:18)
[2021-08-05] MEDS: ENOXAPARIN 40 MG/0.4 ML SYRINGE SUBCUT ×2 (08:58→21:16)
[2021-08-05] MEDS: ASPIRIN 325 MG TABLET PO (08:59)
[2021-08-05] MEDS: AMLODIPINE 5 MG TABLET PO (08:59)
[2021-08-05] MEDS: POTASSIUM CHLORIDE 10 MEQ TAB 30 MEQ PO (08:59)
[2021-08-05] MEDS: PIOGLITAZONE 15 MG TABLET PO (09:00)
[2021-08-05] MEDS: LOSARTAN 25 MG TABLET PO (09:00)
[2021-08-05] MEDS: GABAPENTIN 300 MG CAPSULE PO ×4 (09:00→21:16)
[2021-08-05] MEDS: MONTELUKAST 10 MG TABLET PO (09:00)
[2021-08-05] MEDS: MILNACIPRAN 100 MG 100 EACH PO (09:01)
--- NOTE | 2021-08-05 09:53 | OT.IP.EVAL ---
Current Diagnoses Multiple sclerosis (08/03/21) Past Medical History (Last Reviewed 08/03/21 @ 02:02 by Khanh Quesada DO) Chronically low serum potassium Diabetes Diabetic gastroparesis Dislocation of left patella Fatigue Fibromyalgia History of repair of anterior cruciate ligament of right knee History of shingles Hx of cholecystectomy Hyperlipidemia Hypothyroidism Low vitamin D level Multiple sclerosis Obstructive sleep apnea syndrome Osteoarthritis PCOS (polycystic ovarian syndrome) Raynauds disease Type 2 diabetes mellitus Surgical History (Last Reviewed 08/03/21 @ 02:02 by Khanh Quesada DO) History of repair of anterior cruciate ligament of right knee Hx of cholecystectomy Occupational Therapy Inpatient Evaluation/Re-Eval M1 PT/OT-IP Prior Functional Status Start: 08/04/21 16:09 Freq: NEEDED Status: Active Protocol: Document 08/05/21 09:18 [facility] (Rec: 08/05/21 10:17 [facility] [id number]) Medical Review Prior Functional Status Medical History Reviewed Yes Communication able to make needs known Mobility and Gait pt is modified independent with all mobilities and ambulation without AD indoors but occasionally uses a 4WW or manual w/c depending on how she feels; uses a 4WW or manual w/c for outdoor mobility Activities of Daily Living and IADL's Pt completely independent with all needs and takes care or her family, pt's is and per pt not around to assist. Prior Functional Level (Other details) pt stated that she has been doing almost everything at home and her family does not assist her Social History Household Members spouse,children Living Arrangements House Number of Floors (Floors) One Floor Number of Stairs To Enter/Railing? 1 step to enter the house 1 step to the bedroom Home Environment Standard Height Toilet,Walk in Shower Home Equipment Four Wheel Walker,Manual Wheelchair,Shower Seat without Backrest,Hand Held Shower, Grab Bars Near Toilet Additional Social History Comment pt stated that her spouse and 1 child cannot assist her M2 OT-IP Current Condition Start: 08/05/21 09:57 Freq: Status: Active Protocol: Document 08/05/21 09:18 [facility] (Rec: 08/05/21 10:17 [facility] [id number]) Occupational Therapy Current Condition Current Condition Evaluation Date 08/05/21 Treatment Diagnosis MS exacerbation Diagnosis Onset Date 08/03/21 M4 OT- IP ADL's Start: 08/05/21 09:57 Freq: Status: Active Protocol: Document 08/05/21 09:18 [facility] (Rec: 08/05/21 10:17 [facility] [id number]) OT [id number] General Evaluation Self-Feeding Ability Standby Assistance Areas Needing Assistance Opening Containers Comments OT Self-Feeding Comments Pt states her hands a a little swollen today and therefore needing more assist with set-up. OT ADL-Grooming General Evaluation Grooming Ability Minimal Assistance Areas Needing Assistance Combing/Brushing Hair OT ADL-Oral Care General Eval Oral Care Ability Standby Assistance Areas of Assistance Retrieving/Set-Up of Items Comments Oral Care Comments set-up assist due having more difficulty to use her hands due to swelling. OT ADL-Dressing General Eval Upper Body Dressing Ability Standby Assistance Lower Body Dressing Ability Standby Assistance Comments OT Dressing Comments Pt able to assist to change her gown. Pt able to yovani sock while seated at the edge of the bed. OT ADL-Toileting General Evaluation Toileting Ability Standby Assistance OT ADL-Bathing Comments OT Bathing Comments Pt showered yesterday and states due to being so tired, pt states only able to assist with pericare needs. M5 OT- IP IADL's Start: 08/05/21 09:57 Freq: Status: Active Protocol: Document 08/05/21 09:18 [facility] (Rec: 08/05/21 10:17 [facility] [id number]) OT-Instrumental Activities of Daily Living Home Safety Awareness Awareness of Need for Assistance at Home Good Awareness Ability to Problem Solve Emergency Able to Problem Solve Situations Money Management Money Management No Deficits Identified Meal Preparation Meal Preparation Comments Pt would benefit from assist at home especially during MS flare ups. Production Support Developer Production Support Developer Comments Pt would benefit from assist at home especially during MS flare ups. M6 OT- IP Functional Cognition Start: 08/05/21 09:57 Freq: Status: Active Protocol: Document 08/05/21 09:18 [facility] (Rec: 08/05/21 10:17 [facility] [id number]) Cognitive Factors Limiting Selfcare Function Cognitive Ability Level of Alertness Alert Patient Orientation Name,Age,Birthday,Month,Date, Year,Day of Week,Place, Situation Attention Span Ability Capable of Focused Attention, Capable of Sustained Attention Ability to Follow Commands Able to Follow Multi-Step Commands Memory Description No Deficits Noted Safety Awareness No Deficits Noted Problem Solving Ability No deficits Noted Cognitive Comments Cognitive Assessment Comments Pt intact for cognitive needs. Able to go over energy conservation and stress management suggestions with pt . OT- Vision and Hearing OT- Hearing Assessment OT- Hearing Assessment WFL OT- Vision Assessment Visual Acuity Glasses All The Time M7 OT- IP Mobility and Balance Start: 08/05/21 09:57 Freq: Status: Active Protocol: Document 08/05/21 09:18 [facility] (Rec: 08/05/21 10:17 [facility] [id number]) OT- Bed Mobility Assessment Supine to Sit Supine to Sit Assist Standby Assistance Sit to Supine Sit to Supine Assist Standby Assistance OT-Transfer Assessment Sit to and From Stand Sit to and from Stand Standby Assistance Transfers Transfer Ability Standby Assistance Technique Transfer Destination Bed,Chair Transfer Technique Stand Step Pivot Devices Transfer Assistive Devices Gait Belt,Front Wheeled Walker OT- Balance Assessment Sitting Balance and Reactions Static Sitting Balance Ability Good Dynamic Sitting Balance Ability Good Standing Balance and Reactions Static Standing Balance Ability Good Dynamic Standing Balance Ability Fair M8 OT- IP Objective Assessments Start: 08/05/21 09:57 Freq: Status: Active Protocol: Document 08/05/21 09:18 [facility] (Rec: 08/05/21 10:17 [facility] [id number]) OT Gross Range of Motion Upper Extremity Range of Motion Assessment Bilaterally Impaired OT- Coordination Assessment Comments Coordination Comments Pt hands are a little swollen and having more difficulty to do set-up for oral care needs. M9 OT- IP Assessment and Plan Start: 08/05/21 09:57 Freq: Status: Active Protocol: Document 08/05/21 09:18 [facility] (Rec: 08/05/21 10:17 [facility] [id number]) OT Summary Assessment and Plan Potential Rehabilitation Potential Good Analytic Complexity at Evaluation Moderate Summary OT Impairments Pain,Range of Motion,Balance, Functional Mobility,Dressing, Toileting,Bathing,Toilet Transfers,Shower Transfers, Activity Tolerance Progress Towards Goals Progressing Toward Goals Assessment Summary Pt MOD complexity due to MS exacerbation and now needing more time and use of FWW for needs due to her flare up. Pt would benefit from assist at home and home health if she qualifies when medically stable. Goals Self-Feeding Goal Independent Grooming Goal Independent Dressing Goal Independent Toileting Goal Independent Bathing Goal Independent Toilet Transfer Goal Independent Shower Transfer Goal Independent Days to Meet Goals 3 Frequency of Treatment Frequency Of Treatment Once a Day Treatment Plan OT Treatment Plan ADL Training,Functional Mobility,Patient/Family Education,Discharge Planning Other Treatment Recommendations and Next shower Treatment Focus Discharge Recommendations OT Discharge Recommendations Home with Assistance,Home Health Transportation Needs at Discharge Private Vehicle
[2021-08-05] MEDS: diphenhydrAMINE 25 MG TABLET PO (10:15)
--- NOTE | 2021-08-05 11:00 | PT-IP ANOTE ---
Attempted to see pt at 11 am, pt refused therapy stating she is having a rough day. Mobilized well w/ PT yesterday and confirms she has a w/c her can use to get her inside of the house if needed d/t pt reporting pain in hands w/ weight bearing on 4WW.
--- NOTE | 2021-08-05 11:23 | CM.DPC ---
Addendum entered by Taylor Boothe R.N. 08/05/21 16:07: Reminded hospitalist to place DC order, as is it getting later in the day, and patient is wanting to appeal. He placed discharge order, and let patient know that she is being discharged. Let her know that she can call and appeal discharge to [facility]. She is doing so now. She is complaining about her care, stated that she is medically complex, and should be transferred to a facility that has neurologists on board. She has been told that beds are scarce at this time. She indicated, the hospitalist hasn't even seen me today, and he is discharging me. Hospitalist had discharged her yesterday, then removed discharge, since she did not leave. Encouraged patient to call Leanna Thakur in Risk Management if she has complaints about her care. She is aware that [facility] will review her case to see if she is eligible to stay for another day versus going home. Care Management will be getting a response from [facility] asking for clinical information. Original Note: DCP Cont: Patient was supposed to discharge yesterday, and it is noted that she is still here. Hospitalist had seen her late in the day and had removed her discharge. There was discussion about possible appealing. Met with patient in her room. She was sitting up in bed, introduced self and role. Did state to patient that hospitalist has deemed her medically stable, and she is ready for discharge. Patient indicated, she did not feel she is medically ready, her primary care provider sent her here because of the amount of pills she is taking, and her gastroparesis and diabetes, and now, having trouble with her throat. She also mentioned that her is a warrant officer, and not home all of the time, and when her MS gets bad, needs more help. She also indicated that she has a 17 year old daughter at home, and is autistic, and needs reminding of taking her pills. Let patient know that due to home circumstances and weakness, is no need to stay in the hospital, and provider most likely will discharge. Did let her know that she has the right to appeal discharge, which she may do. Let her know that once the provider places discharge, she can call the [facility] number. She has the IMM form in her room. Reminded her that this does not necessarily mean that the hospital stay will be covered, will be reviewed. Updated Dr. Schmitz that he will need to place a DC order on patient today if he is sure she is ready, for he has not yet seen her. After that, can proceed with the appealing process. Patient is interested in home health, however. P: DCP to continue to follow. Will see if patient is ready for discharge, and if so, will proceed with the appealing process. Taylor Boothe RN/Pad Extraction Tender
--- NOTE | 2021-08-05 11:49 | PC.NURSE ---
Addendum entered by Malissa Joseph R.N. 08/05/21 17:46: Pt amb short distance in hallway w/ staff w/o incidence. Pt med w/tramadol this evening w/good results. Condition remains essentially unchanged. Call light w/in reach, pt calls appropriately for needs, Continue w/plan of care. Original Note: Pt continues w/IV solu medrol as per order. HL remains intact/patent. Pt continues to want to stay in hospital. States she gets a 'sore throat and has a hard time swallowing. Med w/ benadryl at 1000 with good relief. Call light w/in reach, pt calls appropriately for needs.
--- NOTE | 2021-08-05 13:56 | PT-IP ANOTE ---
Attempted to see pt at 13:56, pt appearing very anxious and concerned about her throat and medications. RN aware. Ultimately, pt refused PT due to back spasms.
[2021-08-05] MEDS: diazePAM 5 MG TABLET 10 MG PO (14:04)
[2021-08-05] MEDS: TRAMADOL 50 MG TABLET PO (17:03)
[2021-08-05] MEDS: FENOFIBRATE, MICRONIZED 67 MG CAPSULE 134 MG PO (17:17)
--- NOTE | 2021-08-05 18:20 | P.PN_ITS ---
Subjective Subjective Date Patient Seen: 07/05/21 Interval history: BRIEF HPI ?MORBIDLY OBESE 46-YEAR-OLD FEMALE ADMITTED OVERNIGHT WITH REPORTED WEAKNESS WELL PAIN TO LOWER EXTREMITIES. ? PATIENT ALSO REPORTED? SIGNIFICANT DIFFICULTY GETTING IN AND OUT OF HER CAR ?SHE FOLLOWS A CARE AT ? [facility]? IN [place]. ? THIS MORNING ? NO NAUSEA OR VOMITING ?NO CHEST PAIN.? NO CHEST PALPITATION. ?NO INCREASING SHORTNESS OF BREATH. Exam Vital Signs (past 8 hours): - 08/05/21 12:00 08/05/21 14:20 08/05/21 18:00 Temperature 99.0 F Pulse Rate 119 H Respiratory Rate 18 18 Blood Pressure 114/57 L Pulse Oximetry 98 96 97 Oxygen Delivery Method Room Air Oxygen Flow Rate 0 Narrative Exam Narrative: NO ACUTE DISTRESS.? PATIENT IS ALERT ORIENTED X3. ? MORBIDLY OBESE VITAL SIGNS STABLE HEAD ATRAUMATIC NORMOCEPHALIC NECK : SUPPLE WITHOUT ADENOPATHY NO CAROTID BRUITS EYE:? EOMI, PERRLA, NORMAL CONJUNCTIVA; NO JAUNDICE CHEST:? REGULAR RATE.? ? NO RUBS.? PMI IS NON DISPLACED.? NO MURMURS; NORMAL S1- S2 PULMONARY:? DECREASED BS OVER THE BASES.? MILD BIBASILAR CRACKLES NOTED; NO INCREASED DULLNESS TO PERCUSSION ABDOMEN: ? OBESE BUT SOFT.? NONTENDER.? NONDISTENDED.? BOWEL SOUNDS ARE PRESENT IN ALL 4 QUADRANTS.? NO MASS. EXTREMITIES: NO EDEMA..? NO CYANOSIS CLUBBING NOTED. NEURO:? CRANIAL NERVES 2-12 GROSSLY INTACT. NO FOCAL NEUROLOGICAL DEFICIT NOTED. MSK:? NORMAL RANGE OF MOTION FOR AGE.? NO JOINT EFFUSION. STRENGTH 4/5 IN ALL EXTREMITIES.? POOR MUSCULATURE. SKIN:? NORMAL FOR ETHNICITY; NO ECCHYMOSIS.? NO LESION. ? GOOD? TURGOR.; NO RASHES :? NORMAL EXTERNAL GENITALIA. PSYCH :? APPROPRIATE MOOD AND AFFECT.? ALERT AWAKE ORIENTED X3 Objective Labs Result Diagrams: 08/05/21 06:21 08/05/21 06:21 Labs: Laboratory Results - last 24 hr 08/05/21 08/05/21 08/05/21 06:21 06:21 06:21 WBC 11.3 H RBC 4.19 Hgb 11.6 L Hct 35.4 L MCV 84.4 MCH 27.7 MCHC 32.8 RDW 16.1 H Plt Count 283 Neut % (Auto) 76.6 H Lymph % (Auto) 18.6 L [place] % (Auto) 4.6 Eos % (Auto) 0.0 L Baso % (Auto) 0.2 Neut # (Auto) 8700 H Lymph # (Auto) 2100 [place] # (Auto) 500 Eos # (Auto) 0 Baso # (Auto) 0 Sodium 138 Potassium 4.5 Chloride 106 Carbon Dioxide 28 BUN 28 H Creatinine 0.98 Estimated GFR > 60 BUN/Creatinine Ratio 28.6 H Glucose 146 H Calcium 8.5 Magnesium 2.1 Total Bilirubin 0.2 AST 25 ALT 23 Alkaline Phosphatase 41 Total Protein 5.5 L Albumin 3.1 L Globulin 2.4 Albumin/Globulin Ratio 1.3 PFSH Medical History Chronically low serum potassium Diabetes Diabetic gastroparesis Dislocation of left patella Fatigue Fibromyalgia History of shingles Hyperlipidemia Hypothyroidism Low vitamin D level Multiple sclerosis Obstructive sleep apnea syndrome Osteoarthritis PCOS (polycystic ovarian syndrome) Raynauds disease Type 2 diabetes mellitus Surgical History History of repair of anterior cruciate ligament of right knee Hx of cholecystectomy Family History Family/Other Loud snoring Sleep apnea Depression Dementia Father Loud snoring Sleep apnea Insomnia Restless legs syndrome Obesity Hypertension Heart disease Depression Bipolar disorder Mother Insomnia Hypertension Heart disease Depression Anxiety Family/Other Loud snoring Obesity Hypertension Depression Anxiety Social History marital status: household members: spouse and children Smoking Status: Never smoker alcohol intake: current Assessment & Plan Assessment & Plan narrative: ?IMPRESSION ?POSSIBLE ? ACUTE EXACERBATION OF MUSCULAR SCLEROSIS.? ?MORBID OBESITY.? LIFESTYLE CHANGES RECOMMENDED ?HYPERLIPIDEMIA PER HISTORY ?DIABETES TYPE 2.? INSULIN DEPENDENT ?DIABETIC ASSOCIATED GASTROPARESIS PER HISTORY ?OBESITY HYPOVENTILATORY SYNDROME VERSUS CARA HISTORY ?ACID REFLUX DISEASE /GERD PER HISTORY ?INSOMNIA PER HISTORY ?HYPOTHYROIDISM PER HISTORY ?OSTEOARTHRITIS PER HISTORY ?PLAN ?CONTINUE WITH HIGH-DOSE IV SOLU-MEDROL ?CONTINUE MONITOR BLOOD GLUCOSE CLOSELY WHILE ON? STEROIDS THERAPY PATIENT IS DIABETIC ?WILL CONSIDER ON LONG-ACTING INSULIN IF INDICATED ?CONTINUE SLIDING SCALE INSULIN PREVIOUSLY ORDERED ?DIABETIC DIET ?BLOOD GLUCOSE A.C. AND HS. APPEARS IMPROVED CLINICALLY DAILY LABS TO MONITOR CLOSELY ENCOURAGE ORAL FLUIDS ?CONSULTED PT AND OT TEAM TO EVALUATE AND TREAT ?MAINTAIN FALL PRECAUTION ALL TIME ?ADDITIONAL MANAGEMENT PER CLINICAL COURSE ?DISCHARGE IN NEXT 24 HOURS TO HOME IF STABLE Time Spent With Patient Critical Care time: I spent a total of [] minutes of critical care time on this patient's care today; this time is exclusive of procedural time. Quality VTE Deep Vein Thrombosis/Pulmonary Embolism Present on Admission: No
[2021-08-05] MEDS: ATORVASTATIN 20 MG TABLET 10 MG PO (21:16)
[2021-08-05] MEDS: TRAZODONE 50 MG TABLET PO (21:17)
[2021-08-05] MEDS: LEFLUNOMIDE 20 MG TABLET PO (21:19)
[2021-08-06] VITALS (11 sets, daily range): BP systolic 116–128; BP diastolic 63–78; PULSE 108–115; RESP 16–20; TEMP 36.2–36.9; O2SAT 94–98
[2021-08-06] MEDS: diphenhydrAMINE 25 MG TABLET PO ×4 (05:24→21:30)
[2021-08-06] MEDS: OXYCODONE IR 5 MG TABLET PO ×2 (05:25→21:28)
[2021-08-06] MEDS: PANTOPRAZOLE DR 20 MG TABLET PO (06:38)
[2021-08-06] MEDS: LEVOTHYROXINE 100 MCG TABLET 200 MCG PO (06:38)
[2021-08-06] MEDS: ONDANSETRON 4 MG/2 ML INJ IV ×2 (06:38→21:30)
[2021-08-06] MEDS: TRAMADOL 50 MG TABLET PO ×2 (06:38→11:40)
[2021-08-06 07:08] LABS: Alanine Aminotransferase 27 IU/L (<35); Albumin 3.3 g/dL (3.5-5.0); Albumin Globulin Ratio 1.5 (1.0-2.8); Alkaline Phosphatase 45 U/L (38-126); Aspartate Aminotransferase 22 IU/L (14-36); BUN Creatinine Ratio 32.3 (6-22); Bilirubin Total 0.2 mg/dL (0.2-1.3); Blood Urea Nitrogen 31 mg/dL (7-17); Calcium 8.6 mg/dL (8.4-10.2); Carbon Dioxide 29 mmol/L (22-32); Chloride 107 mmol/L (98-107); Estimated Glomerular Filt Rate > 60 mL/min (>60); Globulin 2.2 g/dL (1.7-4.1); Glucose 173 mg/dL (70-100); HEMOLYSIS < 15 (0-50); Potassium 4.3 mmol/L (3.4-5.1); Sodium 139 mmol/L (137-145); Total Protein 5.5 g/dL (6.3-8.2)
[2021-08-06] MEDS: ALBUTEROL 2.5 MG/3 ML NEB (ADULT) INH (08:42)
[2021-08-06] MEDS: polyethylene glycoL 3350 17 GM POWD.PACK PO (09:54)
[2021-08-06] MEDS: ASPIRIN 325 MG TABLET PO (09:54)
[2021-08-06] MEDS: AMLODIPINE 5 MG TABLET PO (09:54)
[2021-08-06] MEDS: LOSARTAN 25 MG TABLET PO (09:54)
[2021-08-06] MEDS: MONTELUKAST 10 MG TABLET PO (09:55)
[2021-08-06] MEDS: POTASSIUM CHLORIDE 10 MEQ TAB 30 MEQ PO (09:55)
[2021-08-06] MEDS: ENOXAPARIN 40 MG/0.4 ML SYRINGE SUBCUT (09:55)
[2021-08-06] MEDS: PIOGLITAZONE 15 MG TABLET PO (09:55)
[2021-08-06] MEDS: GABAPENTIN 300 MG CAPSULE PO ×4 (09:55→21:25)
[2021-08-06] MEDS: MILNACIPRAN 100 MG 100 EACH PO ×2 (10:29→21:31)
[2021-08-06] MEDS: diphenhydrAMINE 50 MG/ML VIAL 12.5 MG IV (11:40)
[2021-08-06] MEDS: SODIUM CHLORIDE 0.9% IV ×4 (11:54→21:28)
[2021-08-06] MEDS: METHYLPREDNISOLONE IV ×4 (11:54→21:28)
--- NOTE | 2021-08-06 14:10 | PT-IP ANOTE ---
Attempted to see pt at 14:10, pt refused PT due to migraine, back spasms, and fatigue. Offers she has been able to ambulate to bathroom and back w/ nursing staff. Will check back tomorrow.
--- NOTE | 2021-08-06 15:01 | OT.IPNOTE ---
Pt asleep at this time , therefore touch base with pt for OT needs tomorrow as appropriate.
--- NOTE | 2021-08-06 15:15 | P.PN_ITS ---
Subjective Subjective Interval history: Patient denies any acute complaints this morning. However, she does endorse taking Topamax at home for migraines, which has not been resumed here, along with colchicine 0.6 mg bid for superficial thrombophlebitis. Exam Vital Signs (past 8 hours): - 08/06/21 08:42 08/06/21 09:50 08/06/21 10:12 Temperature 97.3 F L Pulse Rate 114 H 111 H Respiratory Rate 16 18 Blood Pressure 117/65 Pulse Oximetry 94 95 95 08/06/21 14:00 Temperature 97.2 F L Pulse Rate 115 H Respiratory Rate 18 Blood Pressure 116/63 Pulse Oximetry 98 Oxygen Delivery Method Room Air Oxygen Flow Rate 0 Const Other: Patient laying in bed comfortably upon my entering the room, in no apparent acute distress, with large body habitus noted Eyes Other: No scleral icterus appreciated Resp Other: Lungs clear to auscultation bilaterally Cardio Other: RRR with normal S1 and S2 heart sounds, and no extra heart sounds or murmurs appreciated GI Other: Soft, non-distended, non-tender, bowel sounds present Skin Other: No grossly abnormal skin lesions noted Extrem Other: Palpable dorsalis pedis bilaterally Objective Labs Result Diagrams: 08/05/21 06:21 08/06/21 06:33 Labs: Laboratory Results - last 24 hr 08/06/21 06:33 Sodium 139 Potassium 4.3 Chloride 107 Carbon Dioxide 29 BUN 31 H Creatinine 0.96 Estimated GFR > 60 BUN/Creatinine Ratio 32.3 H Glucose 173 H Calcium 8.6 Total Bilirubin 0.2 AST 22 ALT 27 Alkaline Phosphatase 45 Total Protein 5.5 L Albumin 3.3 L Globulin 2.2 Albumin/Globulin Ratio 1.5 PFSH Medical History Chronically low serum potassium Diabetes Diabetic gastroparesis Dislocation of left patella Fatigue Fibromyalgia History of shingles Hyperlipidemia Hypothyroidism Low vitamin D level Multiple sclerosis Obstructive sleep apnea syndrome Osteoarthritis PCOS (polycystic ovarian syndrome) Raynauds disease Type 2 diabetes mellitus Surgical History History of repair of anterior cruciate ligament of right knee Hx of cholecystectomy Family History Family/Other Loud snoring Sleep apnea Depression Dementia Father Loud snoring Sleep apnea Insomnia Restless legs syndrome Obesity Hypertension Heart disease Depression Bipolar disorder Mother Insomnia Hypertension Heart disease Depression Anxiety Family/Other Loud snoring Obesity Hypertension Depression Anxiety Social History marital status: household members: spouse and children Smoking Status: Never smoker alcohol intake: current Assessment & Plan Assessment & Plan narrative: Assessment: 1. Acute exacerbation of multiple sclerosis 2. Insulin-dependent DM II 3. Hypertension 4. Reported hx of gastroparesis 5. CARA on CPAP 6. Hypothyroidism 7. hx of migraine headaches 8. Insomnia 9. Obesity, class 3 Plan: 1. Patient follows with neurology at [facility]. ED discussed case with Dr. Angel at who recommended IV Solumedrol 1 gram daily for 3 days. Will continue home anti-spasmodic medications. 2. Will continue home treatment regimen, along with high-intensity insulin sliding scale. 3. Will continue home amlodipine 5 mg daily, losartan 25 mg daily. 4. Currently tolerating PO intake well. 5. CPAP nightly on-board. 6. Will continue home levothyroxine 200 mcg daily. 7. Will continue home Topamax 100 mg daily. 8. Will continue home trazodone 50 mg nightly. 9. This is likely adversely affecting all other comorbidities. Counseling provided. VTE prophylaxis: Lovenox 40 mg daily Code: Full code I have utilized all available immediate resources to obtain, update, or verify the patient's current medications. Time Spent With Patient Critical Care time: I spent a total of [] minutes of critical care time on this patient's care today; this time is exclusive of procedural time. Quality VTE Deep Vein Thrombosis/Pulmonary Embolism Present on Admission: No MIPS - Admit I confirm the patient?s Advance Care Plan is present, Code status is documented, Surrogate decision maker is in patient?s record [If Yes, STOP here]: Yes
[2021-08-06] MEDS: FENOFIBRATE, MICRONIZED 67 MG CAPSULE 134 MG PO ×2 (15:58→21:32)
[2021-08-06] MEDS: TOPIRAMATE 100 MG TABLET PO (15:58)
[2021-08-06] MEDS: BACLOFEN 10 MG TABLET PO ×2 (18:40→21:24)
[2021-08-06] MEDS: ATORVASTATIN 20 MG TABLET 10 MG PO (21:24)
[2021-08-06] MEDS: LEFLUNOMIDE 20 MG TABLET PO (21:28)
[2021-08-06] MEDS: TRAZODONE 50 MG TABLET PO (21:29)
[2021-08-06] MEDS: SODIUM CHLORIDE 0.9% FLUSH 10 ML IV (22:00)
[2021-08-06] MEDS: diphenhydrAMINE 50 MG/ML VIAL 25 MG IV (23:20)
[2021-08-07] VITALS (11 sets, daily range): BP systolic 106–128; BP diastolic 56–71; PULSE 95–118; RESP 14–20; TEMP 35.9–36.7; O2SAT 95–99
[2021-08-07] MEDS: PANTOPRAZOLE DR 20 MG TABLET PO (06:47)
[2021-08-07] MEDS: ACETAMINOPHEN 325 MG TABLET 650 MG PO (06:48)
[2021-08-07] MEDS: OXYCODONE IR 5 MG TABLET PO ×2 (06:48→18:46)
[2021-08-07] MEDS: LEVOTHYROXINE 100 MCG TABLET 200 MCG PO (06:48)
[2021-08-07] MEDS: polyethylene glycoL 3350 17 GM POWD.PACK PO (09:13)
[2021-08-07] MEDS: TOPIRAMATE 100 MG TABLET PO (09:14)
[2021-08-07] MEDS: MONTELUKAST 10 MG TABLET PO (09:14)
[2021-08-07] MEDS: POTASSIUM CHLORIDE 10 MEQ TAB 30 MEQ PO (09:14)
[2021-08-07] MEDS: LOSARTAN 25 MG TABLET PO (09:14)
[2021-08-07] MEDS: GABAPENTIN 300 MG CAPSULE PO ×4 (09:14→22:14)
[2021-08-07] MEDS: PIOGLITAZONE 15 MG TABLET PO (09:14)
[2021-08-07] MEDS: BACLOFEN 10 MG TABLET PO ×2 (09:14→18:46)
[2021-08-07] MEDS: ASPIRIN 325 MG TABLET PO (09:14)
[2021-08-07] MEDS: AMLODIPINE 5 MG TABLET PO (09:14)
--- NOTE | 2021-08-07 09:15 | OT.IP.TRT ---
Current Diagnoses Multiple sclerosis (08/03/21) Occupational Therapy Treatment Note M2 OT-IP Current Condition Start: 08/05/21 09:57 Freq: Status: Active Protocol: Document 08/05/21 09:18 [facility] (Rec: 08/05/21 10:17 [facility] [id number]) Occupational Therapy Current Condition Current Condition Evaluation Date 08/05/21 Treatment Diagnosis MS exacerbation Diagnosis Onset Date 08/03/21 M3 OT- IP Subjective and Pain Start: 08/05/21 09:57 Freq: Status: Active Protocol: Document 08/07/21 09:50 [facility] (Rec: 08/07/21 09:55 [facility] [id number]) OT- Subjective Occupational Therapy Visit Type Type Treatment Note Visit Start Time 09:15 Visit Stop Time 09:28 Total Visit Minutes 13 Occupational Therapy Visit Comments Patient Comments Pt sitting up in the recliner. Patient/Caregiver Goals TO go home. M4 OT- IP ADL's Start: 08/05/21 09:57 Freq: Status: Active Protocol: Document 08/07/21 09:50 [facility] (Rec: 08/07/21 09:55 [facility] [id number]) OT [id number] Comments OT Self-Feeding Comments Not performed. OT ADL-Grooming Comments OT Grooming Comments Not performed. OT ADL-Oral Care Comments Oral Care Comments Not performed. OT ADL-Toileting Comments OT Toileting Comments Pt states having more trouble for pericare needs and spoke of options of toilet paper aid , bidet, and squirt bottle in which she can get to help increase her independence especially when she is not feeling well. M5 OT- IP IADL's Start: 08/05/21 09:57 Freq: Status: Active Protocol: Document 08/05/21 09:18 [facility] (Rec: 08/05/21 10:17 [facility] [id number]) OT-Instrumental Activities of Daily Living Home Safety Awareness Awareness of Need for Assistance at Home Good Awareness Ability to Problem Solve Emergency Able to Problem Solve Situations Money Management Money Management No Deficits Identified Meal Preparation Meal Preparation Comments Pt would benefit from assist at home especially during MS flare ups. 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 M6 OT- IP Functional Cognition Start: 08/05/21 09:57 Freq: Status: Active Protocol: Document 08/07/21 09:50 [facility] (Rec: 08/07/21 09:55 [facility] [id number]) Cognitive Factors Limiting Selfcare Function Cognitive Comments Cognitive Assessment Comments Pt intact however needing encouragement to try to focus on caring for herself first and stress management needs. M7 OT- IP Mobility and Balance Start: 08/05/21 09:57 Freq: Status: Active Protocol: Document 08/05/21 09:18 [facility] (Rec: 08/05/21 10:17 [facility] [id number]) OT- Bed Mobility Assessment Supine to Sit Supine to Sit Assist Standby Assistance Sit to Supine Sit to Supine Assist Standby Assistance OT-Transfer Assessment Sit to and From Stand Sit to and from Stand Standby Assistance Transfers Transfer Ability Standby Assistance Technique Transfer Destination Bed,Chair Transfer Technique Stand Step Pivot Devices Transfer Assistive Devices Gait Belt,Front Wheeled Walker OT- Balance Assessment Sitting Balance and Reactions Static Sitting Balance Ability Good Dynamic Sitting Balance Ability Good Standing Balance and Reactions Static Standing Balance Ability Good Dynamic Standing Balance Ability Fair M8 OT- IP Objective Assessments Start: 08/05/21 09:57 Freq: Status: Active Protocol: Document 08/05/21 09:18 [facility] (Rec: 08/05/21 10:17 [facility] [id number]) OT Gross Range of Motion Upper Extremity Range of Motion Assessment Bilaterally Impaired OT- Coordination Assessment Comments Coordination Comments Pt hands are a little swollen and having more difficulty to do set-up for oral care needs. M9 OT- IP Assessment and Plan Start: 08/05/21 09:57 Freq: Status: Active Protocol: Document 08/07/21 09:50 [facility] (Rec: 08/07/21 09:55 [facility] [id number]) OT Summary Assessment and Plan Potential Rehabilitation Potential Good Analytic Complexity at Evaluation Moderate Summary OT Impairments Pain,Range of Motion,Balance, Functional Mobility,Dressing, Toileting,Bathing,Toilet Transfers,Shower Transfers, Activity Tolerance Progress Towards Goals Progressing Toward Goals Assessment Summary Pt looking to go home when medically stable. OT has suggested equipment to help with her hygiene needs when she is feeling weak. Home health would be beneficial if pt qualifies. Goals Self-Feeding Goal Independent Grooming Goal Independent Dressing Goal Independent Toileting Goal Independent Bathing Goal Independent Toilet Transfer Goal Independent Shower Transfer Goal Independent Days to Meet Goals 2 Frequency of Treatment Frequency Of Treatment Once a Day Treatment Plan OT Treatment Plan ADL Training,Functional Mobility,Patient/Family Education,Discharge Planning Discharge Recommendations OT Discharge Recommendations Home with Assistance,Home Health Transportation Needs at Discharge Private Vehicle
[2021-08-07] MEDS: ENOXAPARIN 40 MG/0.4 ML SYRINGE SUBCUT (09:16)
[2021-08-07] MEDS: MILNACIPRAN 100 MG 100 EACH PO ×2 (09:17→22:15)
[2021-08-07] MEDS: SODIUM CHLORIDE 0.9% FLUSH 10 ML IV (09:25)
--- NOTE | 2021-08-07 11:52 | P.PN_ITS ---
Subjective Subjective Interval history: The patient reports feeling overall well this morning. She reports not too much change in her lower extremity weakness, and understands she's completed 3 days of IV Solumedrol high-dose. Exam Vital Signs (past 8 hours): - 08/07/21 04:00 08/07/21 06:00 08/07/21 07:20 Temperature 97.9 F 97.2 F L Pulse Rate 95 H 106 H Respiratory Rate 18 18 Blood Pressure 115/62 128/71 Pulse Oximetry 95 96 98 08/07/21 08:26 Temperature Pulse Rate Respiratory Rate Blood Pressure Pulse Oximetry 97 Oxygen Delivery Method Room Air Oxygen Flow Rate 0 Narrative Exam Narrative: Const Other: Patient sitting up in bedside chair comfortably upon my entering the room, in no apparent acute distress, with large body habitus noted Eyes Other: No scleral icterus appreciated Resp Other: Lungs clear to auscultation bilaterally Cardio Other: RRR with normal S1 and S2 heart sounds, and no extra heart sounds or murmurs appreciated GI Other: Soft, non-distended, non-tender, bowel sounds present Skin Other: No grossly abnormal skin lesions noted Extrem Other: Palpable radial pulses bilaterally Objective Labs Result Diagrams: 08/05/21 06:21 08/06/21 06:33 [facility] Medical History Chronically low serum potassium Diabetes Diabetic gastroparesis Dislocation of left patella Fatigue Fibromyalgia History of shingles Hyperlipidemia Hypothyroidism Low vitamin D level Multiple sclerosis Obstructive sleep apnea syndrome Osteoarthritis PCOS (polycystic ovarian syndrome) Raynauds disease Type 2 diabetes mellitus Surgical History History of repair of anterior cruciate ligament of right knee Hx of cholecystectomy Family History Family/Other Loud snoring Sleep apnea Depression Dementia Father Loud snoring Sleep apnea Insomnia Restless legs syndrome Obesity Hypertension Heart disease Depression Bipolar disorder Mother Insomnia Hypertension Heart disease Depression Anxiety Family/Other Loud snoring Obesity Hypertension Depression Anxiety Social History marital status: household members: spouse and children Smoking Status: Never smoker alcohol intake: current Assessment & Plan Assessment & Plan narrative: Assessment: 1. Acute exacerbation of multiple sclerosis 2. Insulin-dependent DM II 3. Hypertension 4. Reported hx of gastroparesis 5. CARA on CPAP 6. Hypothyroidism 7. hx of migraine headaches 8. Insomnia 9. Obesity, class 3 Plan: 1. Patient follows with neurology at [facility]. ED discussed case with Dr. Angel at who recommended IV Solumedrol 1 gram daily for 3 days, which completed on August 06. Will continue home anti-spasmodic medications. 2. Will continue home treatment regimen, along with high-intensity insulin sliding scale. 3. Will continue home amlodipine 5 mg daily, losartan 25 mg daily. 4. Currently tolerating PO intake well. 5. CPAP nightly on-board. 6. Will continue home levothyroxine 200 mcg daily. 7. Will continue home Topamax 100 mg daily. 8. Will continue home trazodone 50 mg nightly. 9. This is likely adversely affecting all other comorbidities. Counseling provided. VTE prophylaxis: Lovenox 40 mg daily Time Spent With Patient Critical Care time: I spent a total of [] minutes of critical care time on this patient's care today; this time is exclusive of procedural time. Quality VTE Deep Vein Thrombosis/Pulmonary Embolism Present on Admission: No
--- NOTE | 2021-08-07 15:00 | PT.IPTN ---
Current Diagnoses Multiple sclerosis (08/03/21) Physical Therapy Treatment Note M2 PT-IP Current Condition Start: 08/04/21 16:09 Freq: NEEDED Status: Active Protocol: Document 08/04/21 13:50 [facility] (Rec: 08/04/21 16:33 AB [id number]) Physical Therapy Current Condition Current Condition Evaluation Date 08/04/21 Treatment Diagnosis MS exacerbation; difficulty in walking Onset Date 08/03/21 M3 PT-IP Subjective Start: 08/04/21 16:09 Freq: NEEDED Status: Active Protocol: Document 08/07/21 14:40 [facility] (Rec: 08/07/21 15:26 [facility] [id number]) Subjective Physical Therapy Visit Type Type Treatment Note Visit Start Time 14:40 Visit Stop Time 15:00 Total Visit Minutes 20 Number of [employer]UD[employer] DEAN Visits 1 Physical Therapy Visit Comments Patient Comments agreeable to do PT M4 PT-IP Mobility and Gait Start: 08/04/21 16:09 Freq: NEEDED Status: Active Protocol: Document 08/07/21 14:40 [place] (Rec: 08/07/21 15:26 [place] [id number]) PT-Transfer Assessment Sit to and From Stand Sit to and from Stand Standby Assistance,1 Person Assistance,Use of Upper Extremities Equipment Transfer Assistive Device Gait Belt,Front Wheeled Walker Orthotic/Prosthetic Devices or Brace: No Transfers Transfer Destination Chair Transfer Technique ambulated Transfer Ability Level of Assist Standby Assistance,1 Person Assistance,Use of Upper Extremities Comments Mobility Comments Pt in chair upon arrival and reporting feeling weak but agreeable to ambulate. SBA for sit<>stand w/ FWW. Pt then ambulated ~40 ft w/ FWW SBA w/ slos keyla and then took seated rest break on bench ~3 min prior to ambulating 10 ft back to chair and reporting fatigue. Pt left in chair w/ all needs in reach. Gait Assessment Gait Gait Assistance Required: Standby Assistance Distance (Feet) 40 Assistive Devices Assistive Device Gait Belt,Front Wheeled Walker Orthotic/Prosthetic Devices or Brace: No Gait Deviations General Gait Pattern Decreased Stride Length, Decreased Feet Clearance Factors Limiting Gait Function Factors Limiting Gait Function Decreased Activity Tolerance, Decreased Sensation,Decreased Strength,Poor Balance,Poor Safety Awareness Comments Gait Comments SBA, proper use of FWW, no LOB . Stair Climbing Assessment Comments Stair Climbing Comments Not agreebale to complete. PT-Balance Assessment Sitting Balance and Reactions Static Sitting Balance Ability Good Dynamic Sitting Balance Ability Good Standing Balance and Reactions Static Standing Balance Ability Good Dynamic Standing Balance Ability Fair Device Used 4WW M5 PT-IP Objective Assessments Start: 08/04/21 16:09 Freq: NEEDED Status: Active Protocol: Document 08/04/21 13:50 [facility] (Rec: 08/04/21 16:33 [facility] [id number]) Orientation Orientation/Cognition Level of Alertness Alert Orientation Name,Age,Birthday,Month,Date, Year,Day of Week,Place, Situation Language Function Ability No Deficits Noted Safety Awareness Understands Safety Issues Memory Description No Deficits Noted Gross Range of Motion Lower Extremity ROM Assessment Within Functional Limits Strength Lower Extremity Strength Assessment Bilaterally Impaired Hip 3+/5 Knee 3+/5 Muscle Tone Muscle Tone WNL Yes M6 PT-IP Treatment Start: 08/04/21 16:09 Freq: NEEDED Status: Active Protocol: Document 08/07/21 14:40 [facility] (Rec: 08/07/21 15:26 [facility] [id number]) Physical Therapy Treatment Education Education Provided Safety M7 PT-IP Assessment and Plan Start: 08/04/21 16:09 Freq: NEEDED Status: Active Protocol: Document 08/07/21 14:40 [facility] (Rec: 08/07/21 15:26 [facility] [id number]) PT Summary Assessment and Plan Potential Rehabilitation Potential Fair Status of Condition at Evaluation Stable Summary Impairments Pain,ROM,Strength,Balance, Coordination,Sensation,Tone, Cognition,Bed Mobility, Transfers,Gait,Activity Tolerance Assessment Summary Pt continues to require SBA for transfers and ambulation w / FWW. Low tolerance for activity due to weakness, but ambulated 40 ft and then addtional 10 ft back to chair. Pt expressed frustration over medication and stated she feels she should be in the ICU . Anxious about going home, however physically only requiring Min A. Would benefit from HHPT or OPPT to improve strength. Goals Bed Mobility Goal Independent Transfer Goal Independent,Four Wheeled Walker Gait Goal Independent,Four Wheel Walker Gait Distance 100 Other Goals up/down platform step using 4WW mod I Days to Meet Goals 5 Frequency of Treatment Frequency Of Treatment Once a Day Treatment Plan Physical Therapy Treatment Plan Bed Mobility Training,Transfer Training,Gait Training, Therapeutic Exercise,Balance Retraining,Discharge Planning, Hot or Cold Pack,Neuromuscular Re-ed,Coordination Retraining ,Manual Therapy Recommendations To Nursing Amount of Assist Needed Standby Assistance Discharge Recommendations PT Discharge Recommendations Home with Assistance Transportation Needs at Discharge Private Vehicle
--- NOTE | 2021-08-07 15:46 | CM.DPC ---
DCP Note Per Tigre RN, patient received update from [facility] and patient is d/c by noon tomorrow she would like to avoid additional hospital stay charges. SERVICE DESK ASSOCIATE enters room to meet with patient. Patient indicates understanding that she plans to d/c to home tomorrow and endorses that she plans to have her pick her up by 11 AM. SERVICE DESK ASSOCIATE discusses any potential patient needs upon d/c. Patient states she is not sure about HH at this time, has had HH in the past and does not want it to impeded on her current PT at home. Patient endorses that she can seek further ADL support from and daughter as needed. SERVICE DESK ASSOCIATE encourages patient to f/u with PCP and specialists and states that PCP is able to submit HH referral as needed as well. Patient endorses she has DME and a walker at home and has good days and bad days regarding her pain and mobility. Plan: Patient may reach out to DCP tomorrow morning prior to d/c to home if she is interest in HH referral. Patient is medically clear for d/c, patient plans to f/u PCP and specialists for further medical needs. RAÚL [place]
[2021-08-07] MEDS: diazePAM 5 MG TABLET 10 MG PO (16:26)
[2021-08-07] MEDS: ATORVASTATIN 20 MG TABLET 10 MG PO (22:14)
[2021-08-07] MEDS: LEFLUNOMIDE 20 MG TABLET PO (22:15)
[2021-08-07] MEDS: TRAZODONE 50 MG TABLET PO (22:15)
--- NOTE | 2021-08-07 22:27 | PC.NURSE ---
Addendum entered by Roula Underwood R.N. 08/08/21 05:43: 2230-Pt insulin pump basal rate administration is turned off at this time. Insulin pump is just monitoring bg. Original Note: Pt up to bathroom with SBA then to chair after voiding. VS stable. Pt states she has hip, lower back pain but declines offer for meds at this time. BG checked by [employer] 110 (exactly matching her insulin pump). Held insulin, Pt given snacks to attempt to raise bg (Pt states she is not receiving insulin from her pump-she is just monitoring her blood glucose levels. Pt bg continued to drop down to 70-charge nurse notified to assist with monitoring Pt in case bg did not improve-Pt given honey x 2, cheese, crackers, soda, peaches, hard candy and peanut butter. Pt blood sugar dropped down to 50 and then slowly has climbed back up to 86. Pt assured me she had turned the pump off other than for bg checks. Pt continuing to be closely monitored.
[2021-08-08] MEDS: TRAMADOL 50 MG TABLET PO (00:08)
[2021-08-08 01:00] VITALS: O2SAT 99
[2021-08-08] MEDS: LEVOTHYROXINE 100 MCG TABLET 200 MCG PO (07:18)
[2021-08-08] MEDS: PANTOPRAZOLE DR 20 MG TABLET PO (07:18)
[2021-08-08 07:32] VITALS: O2SAT 97
[2021-08-08 08:00] VITALS: BP 104/58; PULSE 112; RESP 18; TEMP 36.7; O2SAT 97
[2021-08-08] MEDS: MILNACIPRAN 100 MG 100 EACH PO (08:21)
[2021-08-08] MEDS: polyethylene glycoL 3350 17 GM POWD.PACK PO (08:21)
[2021-08-08] MEDS: AMLODIPINE 5 MG TABLET PO (08:22)
[2021-08-08] MEDS: ASPIRIN 325 MG TABLET PO (08:22)
[2021-08-08] MEDS: MONTELUKAST 10 MG TABLET PO (08:22)
[2021-08-08] MEDS: PIOGLITAZONE 15 MG TABLET PO (08:22)
[2021-08-08] MEDS: BACLOFEN 10 MG TABLET PO (08:22)
[2021-08-08] MEDS: TOPIRAMATE 100 MG TABLET PO (08:22)
[2021-08-08] MEDS: ENOXAPARIN 40 MG/0.4 ML SYRINGE SUBCUT (08:22)
[2021-08-08] MEDS: GABAPENTIN 300 MG CAPSULE PO (08:22)
[2021-08-08] MEDS: LOSARTAN 25 MG TABLET PO (08:22)
[2021-08-08] MEDS: POTASSIUM CHLORIDE 10 MEQ TAB 30 MEQ PO (08:22)
[2021-08-08] MEDS: ACETAMINOPHEN 325 MG TABLET 650 MG PO (08:23)
[2021-08-08] MEDS: diazePAM 5 MG TABLET 10 MG PO (09:58)
--- NOTE | 2021-08-08 12:06 | PC.NURSE ---
Day shift: Paperwork signed and all questions answered. Pt has all personal belongings. Pt has MD script and others sent electronic by MD. Taken to car via WC by STEVEN. Pt's spouse is driving her home. Home meds given back to Pt (the ones stored in pharmacy) as well. Left unit for home at approx 1205.
--- NOTE | 2021-08-08 13:45 | P.DS_ITS ---
History of Present Illness History of Present Illness Chief complaint: MS Exacerbation Narrative: 45-year-old female nonsmoker with history of MS presents with a chief complaint of various symptoms that are reminiscent of prior MS exacerbations.? For the past 4-5 days she has been having increasing pain and spasm in her hands and feet and some generalized weakness.? Her last exacerbation requiring admission was a few years ago and relatively similar to this presentation.? She has been taking her medications as directed and denies any change oral mentions.? She does admit that she is under increased stress due to increased work load but denies recent illness with fever chills, runny nose, sore throat or cough and no urinary complaints.? She denies any headache or blurred vision, she denies any balance issues.? She does have increasing nausea over the past few days and does admit to gastroparesis. Discharge Providers Provider Date of admission: 08/03/21 02:45 Discharge Date: 08/08/21 Primary care physician: Cedric Noel DO Consults: 08/03/21 12:07 Consult to Occupational Therapy Evaluate & Treat Comment: Physician Instructions: Evaluate and treat 08/04/21 07:51 Consult to Physical Therapy Evaluate & Treat Comment: Physician Instructions: Evaluate and Treat Discharge provider: Rudolph Nobles MD Summary Hospital Course Discharge Diagnosis: 1. Acute exacerbation of multiple sclerosis 2. Insulin-dependent type 2 diabetes, on insulin pump 3. Gastroparesis 4. CARA on CPAP 5. Hypothyroidism 6. Severe obesity Hospital Course: Patient follows with neurology at [facility]. ED discussed case with Dr. Angel at who recommended IV Solumedrol 1 gram daily for 3 days, which completed on August 06. We did delay discharge of a couple of days due to patient felt not ready to return home and contested admission. At this time she is still having presenting symptoms but is neurologically stable to return home and will follow-up with her neurologist. Status at Discharge Cognitive/behavioral status at discharge: oriented Functional status at discharge: independent ambulation Overall status at discharge: patient is progressing back to baseline Time Spent with Patient Time spent: Less than 30 minutes Exam Vital Signs (past 8 hours): - 08/08/21 07:32 08/08/21 08:00 Temperature 98.1 F Pulse Rate 112 H Respiratory Rate 18 Blood Pressure 104/58 L Pulse Oximetry 97 97 Oxygen Delivery Method Room Air Oxygen Flow Rate 0 Narrative Exam Narrative: General: Alert NAD Neurological: Normal speech and affect Objective Labs Result Diagrams: 08/05/21 06:21 08/06/21 06:33 PFS Medical History Chronically low serum potassium Diabetes Diabetic gastroparesis Dislocation of left patella Fatigue Fibromyalgia History of shingles Hyperlipidemia Hypothyroidism Low vitamin D level Multiple sclerosis Obstructive sleep apnea syndrome Osteoarthritis PCOS (polycystic ovarian syndrome) Raynauds disease Type 2 diabetes mellitus Surgical History History of repair of anterior cruciate ligament of right knee Hx of cholecystectomy Family History Family/Other Loud snoring Sleep apnea Depression Dementia Father Loud snoring Sleep apnea Insomnia Restless legs syndrome Obesity Hypertension Heart disease Depression Bipolar disorder Mother Insomnia Hypertension Heart disease Depression Anxiety Family/Other Loud snoring Obesity Hypertension Depression Anxiety Social History marital status: household members: spouse and children Smoking Status: Never smoker alcohol intake: current Discharge Plan Discharge Plan Patient Disposition: Home Discharge orders & Medications Prescriptions: New atorvastatin [Lipitor] 20 mg Tablet 10 mg PO BEDTIME Qty: 60 0RF meclizine 12.5 mg Tablet 12.5 mg PO Q6HR PRN (Reason: Vertigo) Qty: 20 0RF tramadol 50 mg Tablet 50 mg PO Q4H PRN (Reason: Pain, Severe (7-10)) Qty: 16 0RF promethazine 25 mg Tablet 12.5 mg PO Q6HR PRN (Reason: NAUSEA/VOMITING) Qty: 20 0RF losartan 25 mg Tablet 25 mg PO DAILY Qty: 30 0RF oxycodone 5 mg Tablet 5 mg PO Q4HR PRN (Reason: Pain, Severe (7-10)) Qty: 10 0RF Continued baclofen 10 mg tablet 2 tab PO TID PRN (Reason: Pain (Scale Score 1-3)) 0RF diazepam 10 mg tablet 1 tab PO BID 0RF gabapentin 300 mg capsule 300 mg PO QID 0RF levothyroxine 200 mcg tablet 200 mcg PO DAILY 0RF topiramate 100 mg tablet 100 mg PO DAILY 0RF eletriptan 40 mg tablet 1 tab PO PRN PRN (Reason: Migraine Headache) 0RF Label Comments: TK 1 T PO PRN FOR MIGRAINE MAY REPEAT DOSE IN 2 HOURS. MAX DOSE OF 2 TS PER 24 HOURS zolpidem 5 mg tablet 5 mg PO BEDTIME PRN (Reason: Insomnia) 0RF Label Comments: TK 1 T PO AT NIGHT PRF INSOMNIA insulin aspart U-100 100 unit/mL (3 mL) insulin pen See Rx Instructions .ROUTE .COMPLEX 0RF Label Comments: ADM 30 UNI SC TID WC Rx Instructions: has insulin pump. takes 1 unit of insulin per every 2 carbs. milnacipran 100 mg tablet 100 mg PO BID 0RF albuterol sulfate 90 mcg/actuation HFA aerosol inhaler 2 puff INHALATION Q4-6H PRN (Reason: shortness of breath or wheezing) Qty: 8.5 0RF Rx Instructions: use with spacer aspirin 325 mg Tablet 81 mg PO DAILY 0RF pioglitazone [Actos] 15 mg Tablet 15 mg PO DAILY 0RF ibuprofen 800 mg tablet 600 mg PO Q8H PRN (Reason: pain) 0RF trazodone 50 mg Tablet 50 mg PO BEDTIME 0RF Rx Instructions: take one to two tablets at bed time up to 100mg by mouth potassium chloride 10 mEq Tablet Extended Release 30 meq PO DAILY 0RF pioglitazone 15 mg Tablet 15 mg PO DAILY 0RF atorvastatin 10 mg Tablet 10 mg PO BEDTIME 0RF amlodipine 5 mg Tablet 5 mg PO DAILY 0RF leflunomide 20 mg Tablet 20 mg PO DAILY 0RF omeprazole 20 mg Capsule,Delayed Release(Dr/Ec) 20 mg PO DAILY 0RF montelukast 10 mg Tablet 10 mg PO DAILY 0RF triamterene-hydrochlorothiazid 75-50 mg Tablet 1 tab PO DAILY 0RF fenofibrate 150 mg Capsule 145 mg PO 1700 0RF Discontinued oxycodone 5 mg tablet 5 mg PO BID PRN (Reason: pain) Qty: 10 0RF Follow up/Referrals: Cedric Noel DO [Primary Care Provider] - Diet/Activity/Treatments Diet: Low-fat, Low-sodium and Low-cholesterol Activity: TOLERATED ; FLL PRECAUTIONS Visit Report/Discharge Packet Instructions: How to Prevent Falls, DI for Nausea -- Adult, DI for Muscle Weakness Discharge Data Primary Care Provider: Cedric Noel Quality VTE Deep Vein Thrombosis/Pulmonary Embolism Present on Admission: No
== END 2021-08-08 12:08 | disposition home or self-care (01) | DRG 59 ==
LOC: ED 08-03 02:05 → AC 08-03 02:46
PROVIDERS: Hospitalist; Admitting Provider Nurse Practitioner Family; Emergency Provider Emergency Medicine; Family Provider Family Medicine; PCP Family Medicine; Referring Provider Nurse Practitioner Family; Visit Provider Nurse Practitioner Family
DX: G35 Multiple sclerosis (principal); Z68.42 Body mass index [BMI] 45.0-49.9, adult; E66.01 Morbid (severe) obesity due to excess calories; E11.43 Type 2 diabetes mellitus with diabetic autonomic (poly)neuropathy; Z20.822 Contact with and (suspected) exposure to COVID-19; I10 Essential (primary) hypertension; E78.5 Hyperlipidemia, unspecified; E03.9 Hypothyroidism, unspecified; J45.909 Unspecified asthma, uncomplicated; G47.33 Obstructive sleep apnea (adult) (pediatric); G43.909 Migraine, unspecified, not intractable, without status migrainosus; G47.00 Insomnia, unspecified; K31.84 Gastroparesis; Z79.4 Long term (current) use of insulin; Z96.41 Presence of insulin pump (external) (internal)
CPT/HCPCS: 36415; 36592; 80048; 80053; 81003; 82962; 83036; 83735; 85025; 87635; 94640; 94760; 96365; 96366; 97116; 97161; 97166; 97530; 99284; C9803; J1200; J1650; J1815; J2405; J2930; J7613

== ENCOUNTER 2021-11-22 18:33 | Emergency (ER) | payer MEDICARE, OTHER, SELFPAY ==
[2021-08-03 03:14] VITALS: BMI 45.2
[2021-11-22 19:17] VITALS: BP 134/95; PULSE 99; RESP 20; TEMP 36.2; O2SAT 97; BMI 42.5
[2021-11-22 19:53] LABS: COVID19 -Nasal RAPID Negative (Negative)
--- NOTE | 2021-11-22 22:06 | ED.NAVMDI ---
HPI - Nausea/Vomiting/Diarrhea General Chief complaint: Nausea/Vomiting/Diarrhea Stated complaint: Strep, Loosing weight, Pain in chest Time Seen by Provider: 11/22/21 21:39 Source: patient Mode of arrival: Ambulatory Limitations: no limitations History of Present Illness HPI Narrative: Patient is a 46-year-old female who at the end of last week was diagnosed with strep throat. She is currently on antibiotics. She is a insulin-dependent diabetic. She comes the emergency department today for several issues to include nausea and vomiting. She states she is had multiple pound weight loss over the past couple days. Is also having a sore throat. Has discomfort in her upper chest. Generally not feeling well. Related Data Home Medications Medication Instructions Recorded Confirmed baclofen 10 mg tablet 2 tab PO TID PRN Pain (Scale Score 02/07/18 08/03/21 1-3) diazepam 10 mg tablet 1 tab PO BID 02/07/18 08/03/21 eletriptan 40 mg tablet 1 tab PO PRN PRN Migraine Headache 02/07/18 08/03/21 gabapentin 300 mg capsule 300 mg PO QID 02/07/18 08/03/21 levothyroxine 200 mcg tablet 200 mcg PO DAILY 02/07/18 08/03/21 topiramate 100 mg tablet 100 mg PO DAILY 02/07/18 08/03/21 zolpidem 5 mg tablet 5 mg PO BEDTIME PRN Insomnia 02/07/18 08/03/21 insulin aspart U-100 100 unit/mL See Rx Instructions .Route .COMPLEX 08/20/18 08/03/21 (3 mL) subcutaneous pen milnacipran 100 mg tablet 100 mg PO BID 08/20/18 08/03/21 aspirin 325 mg tablet 81 mg PO DAILY 08/13/19 08/03/21 pioglitazone 15 mg tablet (Actos) 15 mg PO DAILY 08/13/19 08/03/21 ibuprofen 800 mg tablet 600 mg PO Q8H PRN pain 08/14/19 08/03/21 trazodone 50 mg tablet 50 mg PO BEDTIME 08/14/19 08/03/21 potassium chloride 10 mEq 30 meq PO DAILY 11/18/19 08/03/21 tablet,extended release amlodipine 5 mg tablet 5 mg PO DAILY 08/03/21 08/03/21 atorvastatin 10 mg tablet 10 mg PO BEDTIME 08/03/21 08/03/21 fenofibrate 150 mg capsule 145 mg PO 1700 08/03/21 08/03/21 leflunomide 20 mg tablet 20 mg PO DAILY 08/03/21 08/03/21 montelukast 10 mg tablet 10 mg PO DAILY 08/03/21 08/03/21 omeprazole 20 mg capsule,delayed 20 mg PO DAILY 08/03/21 08/03/21 release pioglitazone 15 mg tablet 15 mg PO DAILY 08/03/21 08/03/21 triamterene 75 1 tab PO DAILY 08/03/21 08/03/21 mg-hydrochlorothiazide 50 mg tablet Previous Rx's Medication Instructions Recorded albuterol sulfate 90 mcg/actuation 2 puff inhalation Q4-6H PRN 08/03/19 aerosol inhaler shortness of breath or wheezing #8.5 grams atorvastatin 20 mg tablet (Lipitor) 10 mg PO BEDTIME #60 tabs 08/04/21 losartan 25 mg tablet 25 mg PO DAILY #30 tabs 08/04/21 meclizine 12.5 mg tablet 12.5 mg PO Q6HR PRN Vertigo #20 08/04/21 tabs oxycodone 5 mg tablet 5 mg PO Q4HR PRN Pain, Severe 08/04/21 (7-10) #10 tabs promethazine 25 mg tablet 12.5 mg PO Q6HR PRN 08/04/21 NAUSEA/VOMITING #20 tabs tramadol 50 mg tablet 50 mg PO Q4H PRN Pain, Severe 08/04/21 (7-10) #16 tabs Allergies Allergy/AdvReac Type Severity Reaction Status Date / Time codeine Allergy Severe Rash Verified 11/22/21 19:17 lovastatin [From Advicor] Allergy Severe Anaphylaxis Verified 11/22/21 19:17 niacin [From Advicor] Allergy Severe Anaphylaxis Verified 11/22/21 19:17 pseudoephedrine Allergy Severe Anaphylaxis Verified 11/22/21 19:17 red (food color) Allergy Severe Anaphylaxis Verified 11/22/21 19:17 mushroom Allergy Unknown Verified 11/22/21 19:17 ampicillin Allergy Rash Verified 11/22/21 19:17 barium iodide Allergy Verified 11/22/21 19:17 erythromycin base Allergy Verified 11/22/21 19:17 glatiramer (copolymer 1) Allergy Verified 11/22/21 19:17 interferon beta-1a Allergy itching Verified 11/22/21 19:17 and rash Iodinated Contrast Media Allergy Verified 11/22/21 19:17 lisinopril Allergy Kidneys Verified 11/22/21 19:17 shut down metformin Allergy Gastrointestinal Verified 11/22/21 19:17 Upset Sulfa (Sulfonamide Allergy Verified 11/22/21 19:17 Antibiotics) Penicillins AdvReac Mild Gi Verified 11/22/21 19:17 intolerance artificial sweetners Allergy Uncoded 11/22/21 19:17 Review of Systems Review of Systems ROS Unobtainable: All systems reviewed & are unremarkable except as noted in HPI and below Patient History Medical History Chronically low serum potassium Diabetes Diabetic gastroparesis Dislocation of left patella Fatigue Fibromyalgia History of shingles Hyperlipidemia Hypothyroidism Low vitamin D level Multiple sclerosis Obstructive sleep apnea syndrome Osteoarthritis PCOS (polycystic ovarian syndrome) Raynauds disease Type 2 diabetes mellitus Surgical History History of repair of anterior cruciate ligament of right knee Hx of cholecystectomy Family History Family/Other Loud snoring Sleep apnea Depression Dementia Father Loud snoring Sleep apnea Insomnia Restless legs syndrome Obesity Hypertension Heart disease Depression Bipolar disorder Mother Insomnia Hypertension Heart disease Depression Anxiety Family/Other Loud snoring Obesity Hypertension Depression Anxiety Social History marital status: household members: spouse and children Smoking Status: Never smoker alcohol intake: current Smoking Status: Never smoker alcohol intake frequency: holidays/special occasions only Substance Use Type: does not use Exam Initial Vital Signs Initial Vital Signs: Vital Signs Temperature 97.2 F L 11/22/21 19:17 Pulse Rate 99 H 11/22/21 19:17 Respiratory Rate 20 11/22/21 19:17 Blood Pressure 134/95 H 11/22/21 19:17 Pulse Oximetry 97 11/22/21 19:17 Oxygen Delivery Method 11/22/21 19:17 Const General: cooperative and comfortable HENMT Head: normal to inspection and normocephalic Mouth: moist mucous membranes Throat: posterior oropharynx normal Neck Neck: normal visual inspection Chest Chest: normal inspection of the chest Resp Effort & Inspection: normal respiratory effort Auscultation: clear to auscultation bilaterally Cardio Rate: regular rate Rhythm: regular rhythm GI Inspection: normal to inspection Skin General: no rashes or lesions noted Neuro General: patient alert, patient awake and moves all extremities Extrem General: normal to inspection and capillary refill normal Psych Appearance: grossly normal Course Orders Ordered: ED Orders 11/22/21 19:27 COVID19 -Nasal RAPID/Pre-Proc Stat Discontinued Medications Dexamethasone (Dexamethasone 10 Mg/Ml Vial) 10 mg IV NOW ONE Stop: 11/22/21 22:07 Last Admin: 11/22/21 22:58 Dose: 10 mg Documented By: ERIC Sodium Chloride (Normal Saline 0.9%) 1,000 mls @ 1,000 mls/hr IV BOLUS ONE Stop: 11/22/21 23:05 Last Infusion: 11/23/21 00:20 Dose: 0 mls/hr Documented By: Admin: 11/22/21 22:57 Dose: 1,000 mls/hr Documented By: ERIC Ondansetron HCl (Ondansetron 4 Mg Odt Prepack) 1 bottle MISC SEEINSTR ONE Stop: 11/23/21 00:44 Last Admin: 11/23/21 00:56 Dose: 1 bottle Documented By: ERIC Vital Signs Vital signs: Vital Signs - 8 hr 11/23/21 00:52 Pulse Rate 92 H Respiratory Rate 18 Blood Pressure 143/67 H Pulse Oximetry 96 Oxygen Delivery Method Room Air MDM - Nausea/Vomiting/Diarrhea Lab Data Labs: Lab Results 11/22/21 Range/Units 19:27 SARS-CoV-2 (PCR) Negative (Negative) MDM Narrative Medical decision making narrative: Patient is nontoxic appearing. Is not hyperglycemic. Vital signs are unremarkable. She was given a dose of steroids and she understands she does need to monitor her blood sugars for the next 24-36 hours. No indication to change the antibiotics that she is currently on. No indication to add any antibiotics. Will send home with prescription for nausea medication. Did discuss the importance stay hydrated. No indication for admission the hospital. She was given return precautions. She expressed understanding and agreement. Discharge Plan Departure Patient Disposition: Home Clinical Impression: Strep throat, Nausea and vomiting Instructions: Nausea and Vomiting-Adult Activity Restrictions/Additional Instructions: I do recommend that you continue with the antibiotics as directed. Be sure to increase your fluid intake. Contact your primary doctor for a follow-up. Return to the emergency department for any new or worsening symptoms. Prescriptions: No Action baclofen 10 mg tablet 2 tab PO TID PRN (Reason: Pain (Scale Score 1-3)) diazepam 10 mg tablet 1 tab PO BID gabapentin 300 mg capsule 300 mg PO QID levothyroxine 200 mcg tablet 200 mcg PO DAILY topiramate 100 mg tablet 100 mg PO DAILY eletriptan 40 mg tablet 1 tab PO PRN PRN (Reason: Migraine Headache) Label Comments: TK 1 T PO PRN FOR MIGRAINE MAY REPEAT DOSE IN 2 HOURS. MAX DOSE OF 2 TS PER 24 HOURS zolpidem 5 mg tablet 5 mg PO BEDTIME PRN (Reason: Insomnia) Label Comments: TK 1 T PO AT NIGHT PRF INSOMNIA insulin aspart U-100 100 unit/mL (3 mL) insulin pen See Rx Instructions .ROUTE .COMPLEX Label Comments: ADM 30 UNI SC TID WC Rx Instructions: has insulin pump. takes 1 unit of insulin per every 2 carbs. milnacipran 100 mg tablet 100 mg PO BID albuterol sulfate 90 mcg/actuation HFA aerosol inhaler 2 puff INHALATION Q4-6H PRN (Reason: shortness of breath or wheezing) Qty: 8.5 0RF Rx Instructions: use with spacer aspirin 325 mg Tablet 81 mg PO DAILY pioglitazone [Actos] 15 mg Tablet 15 mg PO DAILY ibuprofen 800 mg tablet 600 mg PO Q8H PRN (Reason: pain) trazodone 50 mg Tablet 50 mg PO BEDTIME Rx Instructions: take one to two tablets at bed time up to 100mg by mouth potassium chloride 10 mEq Tablet Extended Release 30 meq PO DAILY pioglitazone 15 mg Tablet 15 mg PO DAILY atorvastatin 10 mg Tablet 10 mg PO BEDTIME amlodipine 5 mg Tablet 5 mg PO DAILY leflunomide 20 mg Tablet 20 mg PO DAILY omeprazole 20 mg Capsule,Delayed Release(Dr/Ec) 20 mg PO DAILY montelukast 10 mg Tablet 10 mg PO DAILY triamterene-hydrochlorothiazid 75-50 mg Tablet 1 tab PO DAILY fenofibrate 150 mg Capsule 145 mg PO 1700 atorvastatin [Lipitor] 20 mg Tablet 10 mg PO BEDTIME Qty: 60 0RF meclizine 12.5 mg Tablet 12.5 mg PO Q6HR PRN (Reason: Vertigo) Qty: 20 0RF tramadol 50 mg Tablet 50 mg PO Q4H PRN (Reason: Pain, Severe (7-10)) Qty: 16 0RF promethazine 25 mg Tablet 12.5 mg PO Q6HR PRN (Reason: NAUSEA/VOMITING) Qty: 20 0RF losartan 25 mg Tablet 25 mg PO DAILY Qty: 30 0RF oxycodone 5 mg Tablet 5 mg PO Q4HR PRN (Reason: Pain, Severe (7-10)) Qty: 10 0RF Referrals: Cedric Noel DO [Primary Care Provider] - Visit Report Forms: Patient Portal/API
[2021-11-22] MEDS: SODIUM CHLORIDE 0.9% 1,000 ML 1000 ML IV (22:57)
[2021-11-22] MEDS: DEXAMETHASONE 10 MG/ML VIAL IV (22:58)
[2021-11-23 00:52] VITALS: BP 143/67; PULSE 92; RESP 18; O2SAT 96
[2021-11-23] MEDS: ONDANSETRON 4 MG ODT PREPACK 1 BOTTLE MISC (00:56)
== END 2021-11-23 01:00 | disposition home or self-care (01) ==
PROVIDERS: Emergency Provider Emergency Medicine; Family Provider Family Medicine; PCP Family Medicine
DX: J02.0 Streptococcal pharyngitis (principal); R11.2 Nausea with vomiting, unspecified; Z20.822 Contact with and (suspected) exposure to COVID-19
CPT/HCPCS: 87635; 96361; 96374; 99283; 99284; C9803; J1100

== ENCOUNTER 2022-04-20 18:43 | Emergency (ER) | payer MEDICARE, OTHER, SELFPAY ==
[2021-08-03 03:14] VITALS: BMI 45.2
[2022-04-20] VITALS (10 sets, daily range): BP systolic 131–185; BP diastolic 72–94; PULSE 108–119; RESP 22; TEMP 36.5; O2SAT 96–98; BMI 45.8
--- NOTE | 2022-04-20 19:04 | DI.RAD.S_ITS ---
PROCEDURE: XR CHEST 1V INDICATIONS: Shortness of breath TECHNIQUE: One view of the chest was acquired. COMPARISON: [facility], CR, XR CHEST 2V, 05/03/2021, 18:33. [facility], CR, XR CHEST 2V, 12/29/2020, 17:44. FINDINGS: Surgical changes and devices: None. Lungs and pleura: Lungs are clear. No pleural effusions or pneumothorax. Stable platelike scarring in the left lung. Mediastinum: Cardiomegaly. Bones and chest wall: No suspicious bony lesions. Overlying soft tissues appear unremarkable. IMPRESSION: Cardiomegaly. No acute radiographic abnormality. Dictated by: Leonidas Diaz M.D. on 04/20/2022 at 20:44 Approved by: Leonidas Diaz M.D. on 04/20/2022 at 20:44
[2022-04-20 19:48] LABS: Influenza A - CEPHEID Flu A NEGATIVE (NEGATIVE); Influenza B - CEPHEID Flu B NEGATIVE (NEGATIVE); Respiratory Syncytial Virus Negative (Negative)
[2022-04-20 19:58] LABS: COVID-19 CEPHEID 4-PLEX PCR Negative (Negative)
[2022-04-20 20:07] LABS: Add Manual Diff / Slide Review NO; Basophils Absolute Auto 100 /uL (0-100); Basophils Percent Auto 0.9 % (0-2); Eosinophils Absolute Auto 400 /uL (0-450); Eosinophils Percent Auto 3.4 % (2-4); Hematocrit 44.9 % (36-46); Hemoglobin 14.8 g/dL (12.0-16.0); Lymphocytes Absolute Auto 4000 /uL (1100-4500); Lymphocytes Percent Auto 30.8 % (25-40); Mean Corpuscular HGB Conc 32.9 % (30-36); Mean Corpuscular Hemoglobin 27.6 PG (26-34); Mean Corpuscular Volume 83.9 fL (80-100); Monocytes Absolute Auto 900 /uL (0-900); Monocytes Percent Auto 7.3 % (3-14); Neutrophils Absolute Auto 7500 /uL (1500-7000); Neutrophils Percent Auto 57.6 % (50-75); Platelet Count 311 X10^3/uL (150-400); Red Blood Cell Count 5.35 X10^6/uL (4.0-5.2); Red Cell Distribution Width 15.8 % (11.6-14.8); White Blood Cell Count 12.9 X10^3/uL (4.5-11.0)
[2022-04-20 20:18] LABS: Lactate (Lactic Acid) 2.2 mmol/L (0.7-2.1)
[2022-04-20 20:19] LABS: Alanine Aminotransferase 27 IU/L (<35); Albumin 4.1 g/dL (3.5-5.0); Albumin Globulin Ratio 1.4 (1.0-2.8); Alkaline Phosphatase 117 U/L (38-126); Aspartate Aminotransferase 27 IU/L (14-36); BUN Creatinine Ratio 13.5 (6-22); Bilirubin Total 0.4 mg/dL (0.2-1.3); Blood Urea Nitrogen 14 mg/dL (7-17); Calcium 10.4 mg/dL (8.4-10.2); Carbon Dioxide 34 mmol/L (22-32); Chloride 93 mmol/L (98-107); Estimated Glomerular Filt Rate > 60 mL/min (>60); Glucose 161 mg/dL (70-100); HEMOLYSIS < 15 (0-50); Potassium 2.9 mmol/L (3.4-5.1); Sodium 139 mmol/L (137-145); Total Protein 7.1 g/dL (6.3-8.2)
[2022-04-20 20:25] LABS: Prothrombin Time 11.7 SECONDS (10.1-12.7)
[2022-04-20 20:31] LABS: NT-proBNP (BNP-Adult 18+) 46 pg/mL (<125); Troponin I < 0.012 ng/mL (0.01-0.034)
[2022-04-20 20:41] LABS: D Dimer 617 ng/ml (<500)
[2022-04-20] MEDS: ALBUTEROL/IPRATROPIUM 3 ML AMPUL INH (21:11)
[2022-04-20] MEDS: SODIUM CHLORIDE 0.9% 500 ML 1000 ML IV (21:21)
--- NOTE | 2022-04-20 21:36 | ED_ITS ---
HPI - SOB/Dyspnea General Chief Complaint: Shortness of Breath/Dyspnea Stated Complaint: SOB, coughing up phlegm, muscle aches Time Seen by Provider: 04/20/22 20:03 Source: patient Mode of arrival: Wheelchair Limitations: no limitations History of Present Illness HPI Narrative: Patient is a 46-year-old history of multiple sclerosis, hypertension, hypothyroid, type 1 diabetes presents today with upper respiratory like symptoms. She reports that her has been sick for the last 3 days she felt like she has caught a cold. She is coughing up some green phlegm she feels like she is extremely short of breath with exertion. She has chronic ongoing orthopnea and sleep apnea she wears a CPAP at night. However she is been noncompliant with that it does not fit her face anymore. She denies any lower extremity swelling. No significant chest pain. She does not typically get fevers does not feel like she is had a fever. But does have some upper respiratory symptoms. No abdominal pain nausea or vomiting. She reports that she was previously hospitalized for double pneumonia. Related Data Home Medications Medication Instructions Recorded Confirmed baclofen 10 mg tablet 2 tab PO TID PRN Pain (Scale Score 02/07/18 08/03/21 1-3) diazepam 10 mg tablet 1 tab PO BID 02/07/18 08/03/21 eletriptan 40 mg tablet 1 tab PO PRN PRN Migraine Headache 02/07/18 08/03/21 gabapentin 300 mg capsule 300 mg PO QID 02/07/18 08/03/21 levothyroxine 200 mcg tablet 200 mcg PO DAILY 02/07/18 08/03/21 topiramate 100 mg tablet 100 mg PO DAILY 02/07/18 08/03/21 zolpidem 5 mg tablet 5 mg PO BEDTIME PRN Insomnia 02/07/18 08/03/21 insulin aspart U-100 100 unit/mL See Rx Instructions .Route .COMPLEX 08/20/18 08/03/21 (3 mL) subcutaneous pen milnacipran 100 mg tablet 100 mg PO BID 08/20/18 08/03/21 aspirin 325 mg tablet 81 mg PO DAILY 08/13/19 08/03/21 pioglitazone 15 mg tablet (Actos) 15 mg PO DAILY 08/13/19 08/03/21 ibuprofen 800 mg tablet 600 mg PO Q8H PRN pain 08/14/19 08/03/21 trazodone 50 mg tablet 50 mg PO BEDTIME 08/14/19 08/03/21 potassium chloride 10 mEq 30 meq PO DAILY 11/18/19 08/03/21 tablet,extended release amlodipine 5 mg tablet 5 mg PO DAILY 08/03/21 08/03/21 atorvastatin 10 mg tablet 10 mg PO BEDTIME 08/03/21 08/03/21 fenofibrate 150 mg capsule 145 mg PO 1700 08/03/21 08/03/21 leflunomide 20 mg tablet 20 mg PO DAILY 08/03/21 08/03/21 montelukast 10 mg tablet 10 mg PO DAILY 08/03/21 08/03/21 omeprazole 20 mg capsule,delayed 20 mg PO DAILY 08/03/21 08/03/21 release pioglitazone 15 mg tablet 15 mg PO DAILY 08/03/21 08/03/21 triamterene 75 1 tab PO DAILY 08/03/21 08/03/21 mg-hydrochlorothiazide 50 mg tablet Previous Rx's Medication Instructions Recorded albuterol sulfate 90 mcg/actuation 2 puff inhalation Q4-6H PRN 08/03/19 aerosol inhaler shortness of breath or wheezing #8.5 grams atorvastatin 20 mg tablet (Lipitor) 10 mg PO BEDTIME #60 tabs 08/04/21 losartan 25 mg tablet 25 mg PO DAILY #30 tabs 08/04/21 meclizine 12.5 mg tablet 12.5 mg PO Q6HR PRN Vertigo #20 08/04/21 tabs oxycodone 5 mg tablet 5 mg PO Q4HR PRN Pain, Severe 08/04/21 (7-10) #10 tabs promethazine 25 mg tablet 12.5 mg PO Q6HR PRN 08/04/21 NAUSEA/VOMITING #20 tabs tramadol 50 mg tablet 50 mg PO Q4H PRN Pain, Severe 08/04/21 (7-10) #16 tabs Allergies Allergy/AdvReac Type Severity Reaction Status Date / Time codeine Allergy Severe Rash Verified 11/22/21 19:17 lovastatin [From Advicor] Allergy Severe Anaphylaxis Verified 11/22/21 19:17 niacin [From Advicor] Allergy Severe Anaphylaxis Verified 11/22/21 19:17 pseudoephedrine Allergy Severe Anaphylaxis Verified 11/22/21 19:17 red (food color) Allergy Severe Anaphylaxis Verified 11/22/21 19:17 mushroom Allergy Unknown Verified 11/22/21 19:17 ampicillin Allergy Rash Verified 11/22/21 19:17 barium iodide Allergy Verified 11/22/21 19:17 erythromycin base Allergy Verified 11/22/21 19:17 glatiramer (copolymer 1) Allergy Verified 11/22/21 19:17 interferon beta-1a Allergy itching Verified 11/22/21 19:17 and rash Iodinated Contrast Media Allergy Verified 11/22/21 19:17 lisinopril Allergy Kidneys Verified 11/22/21 19:17 shut down metformin Allergy Gastrointestinal Verified 11/22/21 19:17 Upset Sulfa (Sulfonamide Allergy Verified 11/22/21 19:17 Antibiotics) Penicillins AdvReac Mild Gi Verified 11/22/21 19:17 intolerance artificial sweetners Allergy Uncoded 11/22/21 19:17 Review of Systems Review of Systems ROS Unobtainable: All systems reviewed & are unremarkable except as noted in HPI and below Patient History Medical History Chronically low serum potassium Diabetes Diabetic gastroparesis Dislocation of left patella Fatigue Fibromyalgia History of shingles Hyperlipidemia Hypothyroidism Low vitamin D level Multiple sclerosis Obstructive sleep apnea syndrome Osteoarthritis PCOS (polycystic ovarian syndrome) Raynauds disease Type 2 diabetes mellitus Surgical History History of repair of anterior cruciate ligament of right knee Hx of cholecystectomy Family History Family/Other Loud snoring Sleep apnea Depression Dementia Father Loud snoring Sleep apnea Insomnia Restless legs syndrome Obesity Hypertension Heart disease Depression Bipolar disorder Mother Insomnia Hypertension Heart disease Depression Anxiety Family/Other Loud snoring Obesity Hypertension Depression Anxiety Social History marital status: household members: spouse and children Smoking Status: Never smoker alcohol intake: current Smoking Status: Never smoker alcohol intake frequency: holidays/special occasions only Substance Use Type: does not use Exam Initial Vital Signs Initial Vital Signs: Vital Signs Temperature 97.7 F 04/20/22 18:56 Pulse Rate 112 H 04/20/22 18:56 Respiratory Rate 22 04/20/22 18:56 Blood Pressure 161/89 H 04/20/22 18:56 Pulse Oximetry 98 04/20/22 18:56 Oxygen Delivery Method 04/20/22 18:56 GENERAL: Alert pleasant 46-year-old female and in no acute distress. HEENT: Head atraumatic,EOMI, pupils reactive, face symmetric, moist mucous membranes PHARYNX: No uvula swelling poor deviation no tonsillar exudate airways patent CARDIOVASCULAR: Regular rate and rhythm without murmurs, rubs or gallops. RESPIRATORY: Breath sounds equal bilaterally, no wheezes rales or rhonchi. ABDOMEN: Soft, nontender. Normoactive bowel sounds all 4 quadrants. No guarding or rebound. EXTREMITIES: Normal range of motion, no clubbing or edema. Neurovascularly intact NEUROLOGICAL: Alert and oriented x4 SKIN: Warm, dry, no laceration, no petechiae, no rashes or lesions. Course Orders Ordered: ED Orders 04/20/22 19:04 XR chest 1V Stat Measure peak expiratory flow ONCE RT Consult Eval and Treat NOW 04/20/22 19:05 Covid-19 + FLU A/B + RSV - PCR Stat 04/20/22 19:43 Complete Blood Count AUTO DIFF Stat Comprehensive Metabolic Panel Stat D Dimer Stat Lactate (Lactic Acid) Stat NT-proBNP (BNP-Adult 18+) Stat Prothrombin Time INR Stat Troponin I Stat 04/20/22 20:00 EKG-12 Lead Stat Discontinued Medications Albuterol/Ipratropium (Albuterol/Ipratropium 3 Ml Ampul) 3 ml INH NOW ONE Stop: 04/20/22 20:58 Last Admin: 04/20/22 21:11 Dose: 3 ml Documented By: Sodium Chloride (Normal Saline 0.9%) 500 mls @ 1,000 mls/hr IV BOLUS ONE Stop: 04/20/22 21:26 Last Infusion: 04/20/22 22:08 Dose: 0 mls/hr Documented By: Admin: 04/20/22 21:21 Dose: 1,000 mls/hr Documented By: SADIQ Potassium Chloride (Potassium Chloride 20 Meq/15 Ml Udc) 40 meq PO NOW ONE Stop: 04/20/22 23:06 Last Admin: 04/20/22 23:15 Dose: 40 meq Documented By: SADIQ Potassium Chloride (Potassium Chloride 20 Meq Tab) 40 meq PO NOW ONE Stop: 04/20/22 23:06 Last Admin: 04/20/22 23:35 Dose: Not Given Documented By: WILL Vital Signs Vital signs: Vital Signs - 8 hr 04/20/22 18:56 04/20/22 19:46 04/20/22 19:47 Temperature 97.7 F Pulse Rate 112 H 111 H Respiratory Rate 22 Blood Pressure 161/89 H 132/78 Pulse Oximetry 98 98 Oxygen Delivery Method Room Air 04/20/22 20:00 04/20/22 20:00 04/20/22 20:30 Temperature Pulse Rate 110 H Respiratory Rate Blood Pressure 133/80 131/89 Pulse Oximetry 98 Oxygen Delivery Method 04/20/22 20:30 04/20/22 21:00 04/20/22 21:00 Temperature Pulse Rate 108 H 119 H Respiratory Rate Blood Pressure 144/87 H Pulse Oximetry 96 98 Oxygen Delivery Method 04/20/22 21:11 04/20/22 21:23 04/20/22 21:31 Temperature Pulse Rate Respiratory Rate Blood Pressure 185/94 H Pulse Oximetry 96 98 Oxygen Delivery Method Room Air 04/20/22 22:00 Temperature Pulse Rate Respiratory Rate Blood Pressure 150/72 H Pulse Oximetry Oxygen Delivery Method MDM - SOB/Dyspnea Lab Data 04/20/22 19:43 04/20/22 19:43 Labs: Lab Results 04/20/22 04/20/22 04/20/22 Range/Units 19:05 19:43 19:43 WBC 12.9 H (4.5-11.0) X10^3/uL RBC 5.35 H (4.0-5.2) X10^6/uL Hgb 14.8 (12.0-16.0) g/dL Hct 44.9 (36-46) % MCV 83.9 (80-100) fL MCH 27.6 (26-34) PG MCHC 32.9 (30-36) % RDW 15.8 H (11.6-14.8) % Plt Count 311 (150-400) X10^3/uL Neut % (Auto) 57.6 (50-75) % Lymph % (Auto) 30.8 (25-40) % [place] % (Auto) 7.3 (3-14) % Eos % (Auto) 3.4 (2-4) % Baso % (Auto) 0.9 (0-2) % Neut # (Auto) 7500 H (9643-3966) /uL Lymph # (Auto) 4000 (7091-2241) /uL [place] # (Auto) 900 (0-900) /uL Eos # (Auto) 400 (0-450) /uL Baso # (Auto) 100 (0-100) /uL PT 11.7 (10.1-12.7) SECONDS INR 1.0 (0.9-1.3) D-Dimer (<500) ng/ml Sodium (137-145) mmol/L Potassium (3.4-5.1) mmol/L Chloride (98-107) mmol/L Carbon Dioxide (22-32) mmol/L BUN (7-17) mg/dL Creatinine (0.52-1.04) mg/dL Estimated GFR (>60) mL/min BUN/Creatinine Ratio (6-22) Glucose (70-100) mg/dL Lactate (0.7-2.1) mmol/L Calcium (8.4-10.2) mg/dL Total Bilirubin (0.2-1.3) mg/dL AST (14-36) IU/L ALT (<35) IU/L Alkaline Phosphatase (38-126) U/L Troponin I (0.01-0.034) ng/mL NT-Pro-B Natriuret Pep (<125) pg/mL Total Protein (6.3-8.2) g/dL Albumin (3.5-5.0) g/dL Globulin (1.7-4.1) g/dL Albumin/Globulin Ratio (1.0-2.8) SARS-CoV-2 (PCR) Negative (Negative) Influenza A (RT-PCR) Flu a negative (NEGATIVE) Influenza B (RT-PCR) Flu b negative (NEGATIVE) RSV (PCR) Negative (Negative) 04/20/22 04/20/22 04/20/22 Range/Units 19:43 19:43 19:43 WBC (4.5-11.0) X10^3/uL RBC (4.0-5.2) X10^6/uL Hgb (12.0-16.0) g/dL Hct (36-46) % MCV (80-100) fL MCH (26-34) PG MCHC (30-36) % RDW (11.6-14.8) % Plt Count (150-400) X10^3/uL Neut % (Auto) (50-75) % Lymph % (Auto) (25-40) % [place] % (Auto) (3-14) % Eos % (Auto) (2-4) % Baso % (Auto) (0-2) % Neut # (Auto) (1868-2856) /uL Lymph # (Auto) (1165-7393) /uL [place] # (Auto) (0-900) /uL Eos # (Auto) (0-450) /uL Baso # (Auto) (0-100) /uL PT (10.1-12.7) SECONDS INR (0.9-1.3) D-Dimer 617 H (<500) ng/ml Sodium 139 (137-145) mmol/L Potassium 2.9 L (3.4-5.1) mmol/L Chloride 93 L (98-107) mmol/L Carbon Dioxide 34 H (22-32) mmol/L BUN 14 (7-17) mg/dL Creatinine 1.04 (0.52-1.04) mg/dL Estimated GFR > 60 (>60) mL/min BUN/Creatinine Ratio 13.5 (6-22) Glucose 161 H (70-100) mg/dL Lactate 2.2 H (0.7-2.1) mmol/L Calcium 10.4 H (8.4-10.2) mg/dL Total Bilirubin 0.4 (0.2-1.3) mg/dL AST 27 (14-36) IU/L ALT 27 (<35) IU/L Alkaline Phosphatase 117 (38-126) U/L Troponin I < 0.012 (0.01-0.034) ng/mL NT-Pro-B Natriuret Pep 46 (<125) pg/mL Total Protein 7.1 (6.3-8.2) g/dL Albumin 4.1 (3.5-5.0) g/dL Globulin 3.0 (1.7-4.1) g/dL Albumin/Globulin Ratio 1.4 (1.0-2.8) SARS-CoV-2 (PCR) (Negative) Influenza A (RT-PCR) (NEGATIVE) Influenza B (RT-PCR) (NEGATIVE) RSV (PCR) (Negative) 04/20/22 Range/Units 22:17 WBC (4.5-11.0) X10^3/uL RBC (4.0-5.2) X10^6/uL Hgb (12.0-16.0) g/dL Hct (36-46) % MCV (80-100) fL MCH (26-34) PG MCHC (30-36) % RDW (11.6-14.8) % Plt Count (150-400) X10^3/uL Neut % (Auto) (50-75) % Lymph % (Auto) (25-40) % [place] % (Auto) (3-14) % Eos % (Auto) (2-4) % Baso % (Auto) (0-2) % Neut # (Auto) (3351-7321) /uL Lymph # (Auto) (2696-7779) /uL [place] # (Auto) (0-900) /uL Eos # (Auto) (0-450) /uL Baso # (Auto) (0-100) /uL PT (10.1-12.7) SECONDS INR (0.9-1.3) D-Dimer (<500) ng/ml Sodium (137-145) mmol/L Potassium (3.4-5.1) mmol/L Chloride (98-107) mmol/L Carbon Dioxide (22-32) mmol/L BUN (7-17) mg/dL Creatinine (0.52-1.04) mg/dL Estimated GFR (>60) mL/min BUN/Creatinine Ratio (6-22) Glucose (70-100) mg/dL Lactate 1.4 (0.7-2.1) mmol/L Calcium (8.4-10.2) mg/dL Total Bilirubin (0.2-1.3) mg/dL AST (14-36) IU/L ALT (<35) IU/L Alkaline Phosphatase (38-126) U/L Troponin I (0.01-0.034) ng/mL NT-Pro-B Natriuret Pep (<125) pg/mL Total Protein (6.3-8.2) g/dL Albumin (3.5-5.0) g/dL Globulin (1.7-4.1) g/dL Albumin/Globulin Ratio (1.0-2.8) SARS-CoV-2 (PCR) (Negative) Influenza A (RT-PCR) (NEGATIVE) Influenza B (RT-PCR) (NEGATIVE) RSV (PCR) (Negative) Imaging Data Chest x-ray: Radiologist's Impression: XRay Report Signed Patient: Josie Silvestre MR#: [id number] : 1975 Acct:[id number] Age/Sex: 46 / F Date of Service: 04/20/22 Loc: ED Accession Number: [id number] ?? Procedure: XR chest 1V Ordering Provider: Desiree Chowdary D.O. PROCEDURE:? XR CHEST 1V ? INDICATIONS:? Shortness of breath ? TECHNIQUE:? One view of the chest was acquired.? ? COMPARISON:? [facility], CR, XR CHEST 2V, 05/03/2021, 18:33.? [facility], CR, XR CHEST 2V, 12/29/2020, 17:44. ? FINDINGS:? ? Surgical changes and devices:? None.? ? Lungs and pleura:? Lungs are clear.? No pleural effusions or pneumothorax.? Stable platelike scarring in the left lung. ? Mediastinum:? Cardiomegaly. ? Bones and chest wall:? No suspicious bony lesions.? Overlying soft tissues appear unremarkable.? ? IMPRESSION:? Cardiomegaly.? No acute radiographic abnormality. ? ? Dictated by: Leonidas Diaz M.D. on 04/20/2022 at 20:44 ? ? ECG Data Interpretation: Sinus rhythm rate 1 a [place] interval 1 QRS [address] changes MDM Narrative Medical decision making narrative: Patient 46-year-old female history of diabetes, multiple sclerosis presenting today with upper respiratory infectious like symptoms and shortness of breath with exertion. She reports that her has been ill. Her respiratory panel for COVID influenza and RSV are negative. X-ray does not show any type of pneumonia. BNP is 46 and she does not suddenly she is wet or fluid overloaded. D-dimer is noted to be slightly elevated at 617 however patient has a BMI of 45 I do not suspect that she is a pulmonary embolism she is having infection green phlegm with mild leukocytosis of 12.9. I suspect infection. She is given albuterol nebulizer here in the ED which does help some. At this time she does not require antibiotics. Her potassium is found to be slightly low at 2.9. She says she is supposed to be taking potassium but has not been able to take it last couple of days her throat kind hurts as well. There is no significant erythema or uvula deviation in her throat do not suspect strep or peritonsillar or retropharyngeal abscess. At this time patient is given a small bolus of fluid, lactate improved from 2.2-1.4 no significant sign of if your sepsis he is not hypoxic. Heart rate remains elevated however after reviewing her previous vitals her heart rate is always kind of elevated. She is given a dose of potassium. Recommended rest and conservative treatment. Discharge Plan Departure Patient Disposition: Home Clinical Impression: Upper respiratory infection, Acute hypokalemia Instructions: DI for Viral Upper Respiratory Infection -- Adult Activity Restrictions/Additional Instructions: *You have been diagnosed with upper respiratory infection, low potassium *What to do: At this time blood work does show your potassium is 2.9 likely from not being able to take her potassium pills. No need for antibiotics at this time. Rest and hydrate as needed. *Continue to take medications as directed Use albuterol as needed every 4 hours *Follow up with your primary care provider in 2-3 days or call [phone] *Return to ER if you should have increasing shortness of breath, weakness or any new, worsening or concerning symptoms Prescriptions: No Action baclofen 10 mg tablet 2 tab PO TID PRN (Reason: Pain (Scale Score 1-3)) diazepam 10 mg tablet 1 tab PO BID gabapentin 300 mg capsule 300 mg PO QID levothyroxine 200 mcg tablet 200 mcg PO DAILY topiramate 100 mg tablet 100 mg PO DAILY eletriptan 40 mg tablet 1 tab PO PRN PRN (Reason: Migraine Headache) Label Comments: TK 1 T PO PRN FOR MIGRAINE MAY REPEAT DOSE IN 2 HOURS. MAX DOSE OF 2 TS PER 24 HOURS zolpidem 5 mg tablet 5 mg PO BEDTIME PRN (Reason: Insomnia) Label Comments: TK 1 T PO AT NIGHT PRF INSOMNIA insulin aspart U-100 100 unit/mL (3 mL) insulin pen See Rx Instructions .ROUTE .COMPLEX Label Comments: ADM 30 UNI SC TID WC Rx Instructions: has insulin pump. takes 1 unit of insulin per every 2 carbs. milnacipran 100 mg tablet 100 mg PO BID albuterol sulfate 90 mcg/actuation HFA aerosol inhaler 2 puff INHALATION Q4-6H PRN (Reason: shortness of breath or wheezing) Qty: 8.5 0RF Rx Instructions: use with spacer aspirin 325 mg Tablet 81 mg PO DAILY pioglitazone [Actos] 15 mg Tablet 15 mg PO DAILY ibuprofen 800 mg tablet 600 mg PO Q8H PRN (Reason: pain) trazodone 50 mg Tablet 50 mg PO BEDTIME Rx Instructions: take one to two tablets at bed time up to 100mg by mouth potassium chloride 10 mEq Tablet Extended Release 30 meq PO DAILY pioglitazone 15 mg Tablet 15 mg PO DAILY atorvastatin 10 mg Tablet 10 mg PO BEDTIME amlodipine 5 mg Tablet 5 mg PO DAILY leflunomide 20 mg Tablet 20 mg PO DAILY omeprazole 20 mg Capsule,Delayed Release(Dr/Ec) 20 mg PO DAILY montelukast 10 mg Tablet 10 mg PO DAILY triamterene-hydrochlorothiazid 75-50 mg Tablet 1 tab PO DAILY fenofibrate 150 mg Capsule 145 mg PO 1700 atorvastatin [Lipitor] 20 mg Tablet 10 mg PO BEDTIME Qty: 60 0RF meclizine 12.5 mg Tablet 12.5 mg PO Q6HR PRN (Reason: Vertigo) Qty: 20 0RF tramadol 50 mg Tablet 50 mg PO Q4H PRN (Reason: Pain, Severe (7-10)) Qty: 16 0RF promethazine 25 mg Tablet 12.5 mg PO Q6HR PRN (Reason: NAUSEA/VOMITING) Qty: 20 0RF losartan 25 mg Tablet 25 mg PO DAILY Qty: 30 0RF oxycodone 5 mg Tablet 5 mg PO Q4HR PRN (Reason: Pain, Severe (7-10)) Qty: 10 0RF Referrals: Wendi Fajardo ARNP [Primary Care Provider] - Stand Alone Forms: Patient Portal/API
[2022-04-20 21:59] LABS: Reflexed Lactate in 2 Hours Y
[2022-04-20 22:38] LABS: Lactate 2HR (Lactic Acid Rflx) 1.4 mmol/L (0.7-2.1)
[2022-04-20] MEDS: POTASSIUM CHLORIDE 20 MEQ/15 ML UDC 40 MEQ PO (23:15)
== END 2022-04-20 23:35 | disposition home or self-care (01) ==
PROVIDERS: Emergency Provider Emergency Medicine; Family Provider Family Medicine; PCP Nurse Practitioner
DX: J06.9 Acute upper respiratory infection, unspecified (principal); E87.6 Hypokalemia; R79.89 Other specified abnormal findings of blood chemistry; Z79.899 Other long term (current) drug therapy; Z20.822 Contact with and (suspected) exposure to COVID-19
CPT/HCPCS: 0241U; 36415; 71045; 80053; 83605; 83880; 84484; 85025; 85379; 85610; 93005; 93010; 94640; 96360; 99284

== ENCOUNTER 2022-11-29 18:52 | Emergency (ER) | payer MEDICARE, OTHER, SELFPAY ==
[2021-08-03 03:14] VITALS: BMI 45.2
[2022-11-29 19:00] VITALS: BP 147/65; PULSE 95; RESP 18; TEMP 36.9; O2SAT 100; BMI 47.2
--- OUTSIDE RECORDS SUMMARY | 2023-02-10 14:57 | XMS_ITS | Referral Summary ---
Author Name Unknown Organization [facility] [place] [address] [place] [address] Care Team Providers Care Half Section Ironer Name Role Phone Darby Elizalde MD Unavailable Chika Wilkinson MD Unavailable [phone] Danielle Price MD Unavailable [phone] Abraham Martinez MD Unavailable [phone] Wendi Fajardo [facility] Primary Care Provider Reason for Referral * Physical/ Occ/ Speech Therapy (Routine) - In Process Specialty Diagnoses / Procedures Referred By Velia santos Referred To Contact Diagnoses Multiple sclerosis (HCC) Darby Elizalde MD [address] [facility] [id number] [place] [address] [facility] [address] [place] [id number] Referral ID Status Reason Start Date Expiration Date Visits Requested Visits Authorized [id number] In Process Specialty Services Required 10/13/2022 10/13/2023 1 1 Scheduling Instructions Referral to: [address] [place] [address], [place] [address] P: [phone] Toll free from [facility]: [phone] F: [phone] Please be aware that while I, as your health care provider, have identified this referral as medically indicated, I cannot guarantee your insurance plan will cover it. I recommend you contact your insurance carrier to make sure this is a covered service they will pay for. Reason for Visit * Reason Comments Multiple Sclerosis Encounter Details Date Type Department Care Team Description 10/13/2022 Telemedicine [facility] Multiple Sclerosis [place] [address], [address] [place] [address] Darby Elizalde MD [address] [facility] [address] [address] [place] [address] Dx: Multiple sclerosis (HCC) (Primary Dx) Allergies Active Allergy Reactions Severity Noted Date Comments Ampicillin Skin: Rash High 02/22/2017 Interferon Beta-1a 03/24/2017 Barium 08/18/2014 Codeine 08/30/2001 Glatiramer Acetate 03/24/2017 Erythromycin 08/30/2001 Lisinopril 11/28/2015 Other reaction(s): kidneys shut down Metformin Hcl 11/24/2015 Other reaction(s): GI upset Mushroom Extract Complex 11/07/2018 Other (See Comments) 03/24/2017 Dried yeast Pseudoephedrine Hcl Palpitations Low 06/10/2015 Red Dye Other Low 02/22/2017 Makes her aggravated # 3, 33, 40 Sulfa Antibiotics Other Low 02/22/2017 Sulfasalazine 08/30/2001 documented as of this encounter (statuses as of 10/13/2022) Medications Medication Sig Dispensed Refills Start Date End Date Status Atorvastatin Calcium 10 MG Oral Tab Take 1 tablet (10 mg) by mouth. 0 Active DiazePAM 5 MG Oral Tab Take 2 tablets (10 mg) by mouth. 0 Active diphenhydrAMINE 25 MG tablet 0 Active Esomeprazole Magnesium 40 MG Oral CAPSULE DELAYED RELEASE Take 1 capsule (40 mg) by mouth. 0 Active fenofibrate 145 MG tablet Take 1 tablet (145 mg) by mouth. 0 Active HYDROCHLOROTHIAZIDE OR Take 12.5 mg by mouth daily. 0 Active Ibuprofen 800 MG Oral Tab Take 1 tablet (800 mg) by mouth. 0 Active Levocetirizine Dihydrochloride 5 MG Oral Tab 0 Active Levothyroxine Sodium 200 MCG Oral Tab Take 1 tablet (200 mcg) by mouth. 0 Active milnacipran 50 MG tablet Take 2 tablets (100 mg) by mouth. 0 Active natalizumab 300 MG/15ML concentrate 0 Activ e raNITIdine 75 MG tablet 0 Active topiramate 100 MG tablet 0 Active Eletriptan Hydrobromide 40 MG Oral Tab Take 1 tablet (40 mg) by mouth. 0 3 Active Losartan Potassium 25 MG Oral Tab Take 1 tablet (25 mg) by mouth. 0 6 Active Metoclopramide HCl 5 MG Oral Tab Take 1 tablet (5 mg) by mouth 4 times a day. 0 0 Active Potassium Chloride Lurdes ER 10 MEQ Oral Tab CR Take 1 tablet (10 mEq) by mouth. 0 0 Active Ondansetron HCl 4 MG Oral Tab Take 1 tablet (4 mg) by mouth. 0 Active Zolpidem Tartrate 5 MG Oral Tab Take 1 tablet (5 mg) by mouth. 0 Active FISH OIL Take by mouth. 0 Active ketoconazole 2 % External ShampooIndications: Folliculitis Lather onto the scalp or skin and leave in place for 5 minutes then rinse. Use 2-3 times per week as needed to control skin condition. 120 mL 6 9 Active Benzoyl Peroxide (BPO-5 WASH) 5 % External LiquidIndications:F olliculitis Apply 1 application topically daily. Wash acne prone areas. May cause bleaching of fabrics. 1 bottle 6 9 Active INSULIN LISPRO (0.5 UNIT DIAL) SC Inject under the skin. Goes through the pump 0 Active sucralfate 1 g tablet Take 1 tablet (1 g) by mouth. 0 Active amLODIPine 5 MG tablet Take 1 tablet by mouth once a day for high blood pressure 0 1 Active triamterene-hydroCH LOROthiazide 75-50 MG tablet Take 1 tablet by mouth every morning. 0 2 Active baclofen 20 MG tabletIndications:M ultiple sclerosis (HCC),Spasticity Take 1 tablet (20 mg) by mouth 3 times a day. 270 tablet 3 2 Active colchicine 0.6 MG tabletIndications:C ostochondritis TAKE 1 TABLET TWICE A DAY 180 tablet 0 2 Active furosemide 20 MG tablet take 1 tablet by mouth daily in the morning 3 days a week on monday, monday, and monday 0 2 Active nystatin 651105 UNIT/GM cream Apply liberally to affected area twice a day until rash gone 0 2 Active Advair Diskus 250-50 MCG/ACT diskus inhaler 0 2 Active albuterol HFA 108 (90 Base) MCG/ACT inhaler Inhale 2 puffs by mouth. 0 1 Active ProAir HFA 108 (90 Base) MCG/ACT inhaler 0 2 Active Linzess 145 MCG capsule 0 2 Active leflunomide 20 MG tabletIndications:I nflammatory arthritis TAKE 1 TABLET DAILY 90 tablet 3 2 Active meclizine 12.5 MG tabletIndications:V ertigo Take 1 tablet (12.5 mg) by mouth daily as needed for dizziness. 30 tablet 3 2 Active predniSONE 5 MG tabletIndications:I nflammatory arthritis Take 1 tablet (5 mg) by mouth daily. Take with food. 30 tablet 1 2 Active armodafinil 50 MG tabletIndications:M ultiple sclerosis (HCC),Chronic fatigue NEW DOSE: Take 1-2 tabl in morning. (take INSTEAD of 150 mg pill) 60 tablet 1 3 Active traZODone 50 MG tabletIndications:I nsomnia, unspecified type TAKE 1 TO 2 TABLETS (50 TO 100 MG) BY MOUTH AT BEDTIME 180 tablet 1 3 Active ALPRAZolam 0.25 MG tabletIndications:M edication management SPECIFICALLY FOR TYSABRI: 1 tabl on PRN basis if endorsing side effects during monthly Tysabri infusions (in addition to routine 0.5 mg given as premed) 5 tablet 0 3 Active ALPRAZolam 0.5 MG tabletIndications:M edication management,Multiple sclerosis (HCC) TAKE 1 TABLET BY MOUTH UPON ARRIVAL AT INFUSION [address] tablet 0 3 Active Vitamin D-2 1.25 MG (26048 UT) capsuleIndications: Vitamin D deficiency TAKE 1 CAPSULE BY MOUTH 1 TIME A WEEK 4 capsule 3 3 Active OXcarbazepine 300 MG tabletIndications:M ultiple sclerosis (HCC),Neuropathic pain Take 1 tablet (300 mg) by mouth 2 times a day. Lab recheck in 11/2022 recommended. 180 tablet 0 3 Active promethazine 12.5 MG tabletIndications:M ultiple sclerosis (HCC),Nausea Take 1 tablet (12.5 mg) by mouth 3 times a day as needed (nausea). 30 tablet 3 3 Active gabapentin 100 MG capsuleIndications: Multiple sclerosis (HCC),Neuropathic pain Take 2 capsules at night (along with 600 mg at night to make 800 mg at night) 180 capsule 3 3 Active gabapentin 300 MG capsuleIndications: Multiple sclerosis (HCC),Neuropathic pain Take 1 capsule in morning-1 capsule in afternoon-2 capsules at night. 360 capsule 3 3 Active cyanocobalamin 1000 MCG/ML injectionIndication s:Vitamin B12 deficiency Inject 1 mL (1,000 mcg) intramuscularly every month. Please either administer the shot or dispense with syringes and needles. 3 mL 3 3 Active promethazine 12.5 MG tabletIndications:M ultiple sclerosis (HCC),Nausea Take 1 tablet (12.5 mg) by mouth 3 times a day as needed (nausea). 30 tablet 3 0 10/14/19 23 Discontin ued(Reord er) armodafinil 150 MG tabletIndications:M ultiple sclerosis (HCC),Other fatigue,CARA (obstructive sleep apnea),Shift work sleep disorder Take 1 tablet (150 mg) by mouth every morning. As a single dose. 30 tablet 5 2 10/14/19 23 Discontin ued(Med list cleanup) gabapentin 100 MG capsuleIndications: Multiple sclerosis (HCC),Neuropathic pain Take 2 capsules at night (along with 600 mg at night to make 800 mg at night) 180 capsule 3 2 10/14/19 23 Discontin ued(Dose adjustmen t) gabapentin 300 MG capsuleIndications: Multiple sclerosis (HCC),Neuropathic pain Take 1 capsule in morning-1 capsule in afternoon-2 capsules at night. 360 capsule 3 2 10/14/19 23 Discontin ued(Dose adjustmen t) cyanocobalamin 1000 MCG/ML injectionIndication s:Vitamin B12 deficiency Inject 1 mL (1,000 mcg) intramuscularly every month. 1 mL 6 2 10/14/19 23 Discontin ued(Reord er) OXcarbazepine 150 MG tabletIndications:M ultiple sclerosis (HCC),Neuropathic pain Take 1 tablet (150 mg) by mouth 2 times a day. 180 tablet 0 3 10/14/19 23 Discontin ued(Reord er) documented as of this encounter (statuses as of 10/13/2022) Active Problems Problem Noted Date Hepatic steatosis 10/13/2022 Medication management 06/26/2020 B12 deficiency 05/01/2019 Parotiditis 07/04/2018 Multiple sclerosis 03/24/2017 Rheumatoid arthritis 03/24/2017 Hypersomnia 03/24/2017 Vitamin D deficiency 03/24/2017 Fibromyalgia 03/24/2017 Osteoarthritis 03/24/2017 Sleep apnea; as of 01/2017 not using CPA P 03/24/2017 Insulin dependent Diabetes mellitus 03/13 Low serum vitamin B12 03/24/2017 Overview: 01/2017 252 Immunosuppressed status 03/24/2017 PCOS (polycystic ovarian syndrome) 03/24 IBS (irritable bowel syndrome) 8 mood disorder / emotional vulnerability 03/24/2017 Gastroparesis 03/24/2017 documented as of this encounter (statuses as of 10/13/2022) Social History Tobacco Use Types Packs/Day Years Used Date Smoking Tobacco: Never Smokeless Tobacco: Never Alcohol Use Standard Drinks/Week Comments No 0 (1 standard drink = 0.6 oz pur e alcohol) 1-4/yr Sex Assigned at Date Recorded Female 06/26/2018 9:40 PM P DT documented as of this encounter Last Filed Vital Signs Vital Sign Reading Time Taken Comments Blood Pressure - - Pulse - - Temperature - - Respiratory Rate - - Oxygen Saturation - - Inhaled Oxygen Concentration - - Weight 109.3 kg (241 lb) 10/13/2022 12:38 PM PDT Height 154.9 cm (5' 1) 10/13/2022 12:38 PM PDT Body Mass Index 45.54 10/13/2022 12:38 PM PDT documented in this encounter Patient Instructions * Patient Instructions* Darby Elizalde MD - 10/13/2022 1:00 PM PDT -referral to physical therapy to help evaluate for manual wheelchair (new seat vs. New chair) [facility] [address] [place] [address], [facility] [place] [address] P: [phone] Toll free from [facility]: [phone] F: [phone] -would benefit from ultralight wheelchair To help with mobility and daily activities, such as getting to and from the toilet safely, such as accessing snacks quickly in the setting of insulin pump dependent diabetes -for a new wheelchair you could use [employer] in [place] or [employer] -To modify current wheelchair, would recommend calling [employer] at [place] I will send a prescription to modify the seat [employer] [address] [facility] [place] [address] -The following websites have information about vehicle modifications/wheelchair vans: https://SETVIeda.org/ https://www.Contests4Causes/us/en.html https://www.Mail'Inside/ https://www.[employer].MyCrowd/ -you let me know you have been taking oxcarbazepine 300 mg twice a day for 1 week -oxcarbazepine 300 mg twice a day prescription provided to match your use. -need to check CBC, CMP labs for oxcarbazepine in 1 month. Please print order from [employer] and let us know once labs are done. -refill gabapentin 300-300-800 mg -refilling your phenergan to help your migraines -fyi tardive dyskinesia can be a side effect of phenergan -your B12 level was low on B12 1000 mcg daily, may increase to sublingual 5000 mcg daily. Alternatively may do monthly B12 shots with needles/syringes. -could consider aquatics classes locally (e.g. water walking) to help with adding more activity into your routine. -may continue PT (you told me you have somebody who works well with you) -Great work limiting saturated fat in the diet--this is a good move for your hepatic steatosis. Please make follow up in 6 months documented in this encounter Progress Notes * Darby Elizalde MD - 10/13/2022 1:00 PM PDT Distant Site Telemedicine Encounter I conducted this encounter via secure, live, [id number] video conference with the patient. I reviewed the risks and benefits of telemedicine as pertinent to this visit and the patient agreed to proceed. Provider Location: Off-site location (home, non- location) Patient Location: At home Present with patient: No one else present Physical Medicine and Rehabilitation Note Chief Complaint: multiple sclerosis Background neuro history (per Dr. Wilkinson): Multiple sclerosis Date of dx: 10/2006 by a neurologist in [place] based sx, MRI and CSF which were c/w MS Current DMT:Tysabri resumed 06/2017 after several mo hiatus d/t concerns re combination agents/reassessment; previously Tysabri since 03/2007; tolerates with benadryl premed. 06/[address] Wilkinson tysabri to be given with IV benadryl premed, xanax 0.5 mg to go to pt's OP pharmacy Past DMT: Avonex x 2 weeks only 11/2006 stopped d/t huge welts, worse on 2nd shot, face/tongue swelling. Copaxone x single shot 12/2006 but anaphylaxis per pt (facial rash, swelling, SOB, went to ER). Last MRI: 12/2019 MRI brain- minimal T2 hyperintense foci, similar to 2017. Nonspecific. No abnormal enhancement. MRI C spine-stable white matter lesions without enhancement, consistent with MS. No new white matter lesions seen. IVMP usage: repeatedly until worsening DM, reports that DM is consequence of IVMP (but also pos famhx). Typically had 1-3 doses, estimates total 4 courses. Including 11/2019, 07/2021. CÉSAR Virus antibody status: reported as always negative Co-morbidities: IDDM (unclear Type 1 vs. 1.5 vs. 2) with insulin pump, OA/RA (RF negative, seen by Dr. Borden, back on leflunomide per Dr. Price), fibromyalgia. Gastroparesis, IBS. HL. PCOS. Hypothyroid. Lipomas in low back area. Kidney stones. Parotitis 01/2018. 2019 shingles L neck. Raynauld's. osteopenia. severe vit D deficiency, Low B12 (223) Has frame expander. 05/[address] Price via telemed-diagnosed costochondritis-started colchicine Hepatic steatosis SH: lives on [place]. 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 daughter-diagnosed as autistic (2020) andprecursor for fibromyalgia and Freya Danlos, graduated from high school (2022) S/p Pfizer x 2 (05/27 and 06/17/20), pfizer December 17, 2020. Misc: -09/2022 B12 187 (while on b12 SL 1000 mcg daily) Interval history: -last seen 10/2021. At that time having trouble with vomiting/diarrhea w h/o gastroparesis, was taking colchicine since 05/2021. In interim- -01/2022. Saw rheum. On leflunomide, which was helping inflamm arthritis. -07/2022 started on oxcarb 150 mg bid -B12 was low -US showed mod-severe steatosis. Spoke w PCP, and reports plan will be to see gastro Attributes wt gain to steroids. 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 -09/[address] Wilkinson-who notes neuro exam was stable -09/2022 B12 187, CMP ok -has gained weight, doesn't fit wheelchair anymore. Rubs side of legs. Using old wheelchair that doesn't fit her well. -wheelchair was ~03/2018. -feet go numb when she walks. No falls. But has near falls. Yesterday tried to get up from bed and couldn't. Or sitting on toilet, when getting up feels numb and unstable. -on a bad day can walk <10 feet. -daughter going to college. -oxcarb 300 mg bid increased. Tired, but not more than usual. -migraines make her nauseous. -happy w gabapentin 300-300-800 Aware could cause wt gain -zofran ODT prn temporarily. -phenergan refill requested No tardive dyskinesia -nuvigil 50-100 mg daily (lesser dose now, less headache) -B12 187. -able to use bipap 11 hrs last night. -gets PT, OMT adjustments, modalities in the home (but not via HH). Really helpful. Background rehab history: -meclizine/promethazine 12.5 mg prn dizziness (helps) -Mobility: knees buckling when fatigued. On a bad day can walk <10 ft with rollator and may be hard to rise from toilet. Custom manual wheelchair in the home at times. h/o falls/dizziness, h/o syncope in the heat. -ADLS: Sometimes when pain is very bad, can't do laundry, hard to carry things while walking. rollator for toileting/brushing teeth. Not cooking much due to fear of falling. Teak shower bench. Hand coordination impaired. Also has bilateral hand arthritis. -Equipment: walker -Speech/swallow/Respiratory: 08/26/2019 Mild pharyngeal dysphagia secondary to right side swelling or other undetermined cause ofdiscomfort. smtoms alleviated to head turn to right and effortful swallow. No exercises recommended. Rather rec follow thru on her med appts to clarify underlying cause. 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 Sunshine who rec laryngology follow up for further examination Quick exam on nasopharyngoscopy showed normal vocal mobility, no obvious mass/lesion 12/29/[address] Sunshine for pharyngeal dysphagia/dysphonia. rec swallow study and laryngology eval, speech therapy -Therapy: -Exercise: -Fatigue: B12, synthroid. Gets physically unwell if she does too much. nuvigil 50-100 mg prn (150 mg too much and assoc w RICE) Past: adderall (made her depressed), provigil (didn't work), -Sleep: CARA on bipap. trazodone 50-100 mg qhs. ambien 5 mg prn (rare, per PCP). -Mood: -Cognition: 07/[address] Duckworth for focused neurocog eval-difficulty with attention, information synthesis and manipulation, difficulty with language production and categorical/semantic memory, difficulty with verbal memory. Acquisition of novel visual information was preserved. uses notebook/calendar to help remember things. -Work: On disability since 2009. 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 Not currently working. -h/o numbness in BUE/BLE marin feet and hands. R foot may feel vibrations. Severe pains in feet sometimes. -Pain: h/o R knee ACL repair/lateral release of patella/medial meniscus repair, failed L knee patellar realignment. Bulging disks in back. h/o hernia repair. Bilateral knees bad OA. R 3rd MCP cyst. fibromyalgia. MS hug. Neuropathic pain (L hand). R frozen shoulder s/p PT, dry needling, scraping. L shoulder pain. 05/2021 costochondritis. gabapentin up to 300-300-800 mg (limited by fatigue, helps). savella 100 mg bid. eletriptan prn. topamax 100 mg qhs (75 mg wasn't effective). Oxcarbazepine 300 mg bid (helps spasms, nerve pain) Tylenol prn. Oxycodone 0.25 pill prn sparingly. Past: vicoprofen (in past from trumpet player), NSAID (history of ulcer) -Spasticity: R hand/shoulder and both feet spasms, R calf spasm. Baclofen 20 mg tid (helps a lot). Diazepam 10 mg bid prn anxiety/muscle spasms (per PCP). Massage therapist helps. -Skin: -Bowel: Gastroparesis. Patient reports dumping syndrome (etiology unclear to me). IBS-D. Hemorrhoids. hepatic steatosis. Zantac. zofran 4 mg. Promethazine 12.5 mg prn. linzess prn (helps). Ulcer suspected after steroids and on sucralfate (05/2020) Past med: reglan (didn't like it) -Bladder: sometimes asymptomatic UTIs, some urgency. Kidney stones. -partial hysterectomy. -Vision: Symptoms Fatigue: Very much Sleep: Very much Double vision: Not at all Blurry vision: Not at all Swallowing problems: Quite a bit Dizziness / light headedness: A little bit Numbness or tingling or odd sensations: A little bit Pain: Quite a bit Weakness: Quite a bit Falling: Not at all Spasms or jerking: Quite a bit Tightness or stiffness: Quite a bit Bladder problems: A little bit Bowel problems: Quite a bit Sexual problems: A little bit Depression: Quite a bit Anxiety: Quite a bit Problems thinking: A little bit Heat sensitivity: A little bit Skin problems (e.g., injection site reaction): Not at all Heart palpitations: Not at all Shortness of breath: A little bit Exercise Vitals: Total Minutes of Exercise per Week: (!) 0 Current Outpatient Medications: Advair Diskus 250-50 MCG/ACT diskus inhaler, , Disp: , Rfl: albuterol HFA 108 (90 Base) MCG/ACT inhaler, Inhale 2 puffs by mouth., Disp: , Rfl: ALPRAZolam 0.25 MG tablet, SPECIFICALLY FOR TYSABRI: 1 tabl on PRN basis if endorsing side effects during monthly Tysabri infusions (in addition to routine 0.5 mg given as premed), Disp: 5 tablet, Rfl: 0 ALPRAZolam 0.5 MG tablet, TAKE 1 TABLET BY MOUTH UPON ARRIVAL AT INFUSION SUITE, Disp: 6 tablet, Rfl: 0 amLODIPine 5 MG tablet, Take 1 tablet by mouth once a day for high blood pressure, Disp: , Rfl: armodafinil 150 MG tablet, Take 1 tablet (150 mg) by mouth every morning. As a single dose., Disp: 30 tablet, Rfl: 5 armodafinil 50 MG tablet, NEW DOSE: Take 1-2 tabl in morning. (take INSTEAD of 150 mg pill), Disp: 60 tablet, Rfl: 1 Atorvastatin Calcium 10 MG Oral Tab, Take 1 tablet (10 mg) by mouth., Disp: , Rfl: baclofen 20 MG tablet, Take 1 tablet (20 mg) by mouth 3 times a day., Disp: 270 tablet, Rfl: 3 Benzoyl Peroxide (BPO-5 WASH) 5 % External Liquid, Apply 1 application topically daily. Wash acne prone areas. May cause bleaching of fabrics., Disp: 1 bottle, Rfl: 6 colchicine 0.6 MG tablet, TAKE 1 TABLET TWICE A DAY, Disp: 180 tablet, Rfl: 0 cyanocobalamin 1000 MCG/ML injection, Inject 1 mL (1,000 mcg) intramuscularly every month., Disp: 1mL, Rfl: 6 DiazePAM 5 MG Oral Tab, Take 2 tablets (10 mg) by mouth., Disp: , Rfl: diphenhydrAMINE 25 MG tablet, , Disp: , Rfl: Eletriptan Hydrobromide 40 MG Oral Tab, Take 1 tablet (40 mg) by mouth., Disp: , Rfl: Esomeprazole Magnesium 40 MG Oral CAPSULE DELAYED RELEASE, Take 1 capsule (40 mg) by mouth., Disp: , Rfl: fenofibrate 145 MG tablet, Take 1 tablet (145 mg) by mouth., Disp: , Rfl: FISH OIL , Take by mouth., Disp: , Rfl: furosemide 20 MG tablet, take 1 tablet by mouth daily in the morning 3 days a week on monday, monday, and monday, Disp: , Rfl: gabapentin 100 MG capsule, Take 2 capsules at night (along with 600 mg at night to make 800 mg at night), Disp: 180 capsule, Rfl: 3 gabapentin 300 MG capsule, Take 1 capsule in morning-1 capsule in afternoon-2 capsules at night., Disp: 360 capsule, Rfl: 3 HYDROCHLOROTHIAZIDE OR, Take 12.5 mg by mouth daily., Disp: , Rfl: Ibuprofen 800 MG Oral Tab, Take 1 tablet (800 mg) by mouth., Disp: , Rfl: INSULIN LISPRO (0.5 UNIT DIAL) SC, Inject under the skin. Goes through the pump, Disp: , Rfl: ketoconazole 2 % External Shampoo, Lather onto the scalp or skin and leave in place for 5 minutes then rinse. Use 2-3 times per week as needed to control skin condition., Disp: 120 mL, Rfl: 6 leflunomide 20 MG tablet, TAKE 1 TABLET DAILY, Disp: 90 tablet, Rfl: 3 Levocetirizine Dihydrochloride 5 MG Oral Tab, , Disp: , Rfl: Levothyroxine Sodium 200 MCG Oral Tab, Take 1 tablet (200 mcg) by mouth., Disp: , Rfl: Linzess 145 MCG capsule, , Disp: , Rfl: Losartan Potassium 25 MG Oral Tab, Take 1 tablet (25 mg) by mouth., Disp: , Rfl: meclizine 12.5 MG tablet, Take 1 tablet (12.5 mg) by mouth daily as needed for dizziness., Disp: 30tablet, Rfl: 3 Metoclopramide HCl 5 MG Oral Tab, Take 1 tablet (5 mg) by mouth 4 times a day., Disp: , Rfl: milnacipran 50 MG tablet, Take 2 tablets (100 mg) by mouth., Disp: , Rfl: natalizumab 300 MG/15ML concentrate, , Disp: , Rfl: nystatin 000709 UNIT/GM cream, Apply liberally to affected area twice a day until rash gone, Disp: , Rfl: Ondansetron HCl 4 MG Oral Tab, Take 1 tablet (4 mg) by mouth., Disp: , Rfl: OXcarbazepine 150 MG tablet, Take 1 tablet (150 mg) by mouth 2 times a day., Disp: 180 tablet, Rfl:0 Potassium Chloride Lurdes ER 10 MEQ Oral Tab CR, Take 1 tablet (10 mEq) by mouth., Disp: , Rfl: predniSONE 5 MG tablet, Take 1 tablet (5 mg) by mouth daily. Take with food., Disp: 30 tablet, Rfl:1 ProAir HFA 108 (90 Base) MCG/ACT inhaler, , Disp: , Rfl: promethazine 12.5 MG tablet, Take 1 tablet (12.5 mg) by mouth 3 times a day as needed (nausea)., Disp: 30 tablet, Rfl: 3 raNITIdine 75 MG tablet, , Disp: , Rfl: sucralfate 1 g tablet, Take 1 tablet (1 g) by mouth., Disp: , Rfl: topiramate 100 MG tablet, , Disp: , Rfl: traZODone 50 MG tablet, TAKE 1 TO 2 TABLETS (50 TO 100 MG) BY MOUTH AT BEDTIME, Disp: 180 tablet, Rfl: 1 triamterene-hydroCHLOROthiazide 75-50 MG tablet, Take 1 tablet by mouth every morning., Disp: , Rfl: Vitamin D-2 1.25 MG (12197 UT) capsule, TAKE 1 CAPSULE BY MOUTH 1 TIME A WEEK, Disp: 4 capsule, Rfl: 3 Zolpidem Tartrate 5 MG Oral Tab, Take 1 tablet (5 mg) by mouth., Disp: , Rfl: Physical exam Gen: NAD, seated in front of camera Eyes: Conjunctiva clear. Resp: No conversational dyspnea Mental status: alert, appropriate. Ext: no pitting edema in feet or legs. Psych: very pleasant Assessment/Plan: 47 yo F with relapsing remitting multiple sclerosis affecting brain/C spine with prior diagnosis ofrheumatoid arthritis. She is currently on tysabri as well as leflunomide (for inflamm arthritis) Multiple sclerosis -reports weight gain has made it difficult for her to use her custom manual wheelchair (no longer fits), and she is currently sitting in an old former WC not fit to her, and they cause pain because they don't fit. -referral to physical therapy to help evaluate for manual wheelchair (new seat vs. New chair) [address] [place] [address], [place] [address] P: [phone] Toll free from [facility] and [facility]: [phone] F: [phone] -[id number] for from ultralight MANUAL wheelchair To help with mobility and daily activities, such as getting to and from the toilet safely, such as accessing snacks quickly in the setting of insulin pump dependent I am recommending a custom ultralight manual wheelchair for her given co- morbidities of multiple sclerosis and arthritis to assist with household mobility and ADLs/IADLs. She needs an ultralight wheelchair as she has found it too hard to propel even a lightweight wheelchair given her bilateral shoulder weakness, right frozen shoulder and likely rotator cuff partial tear (based on +Neer's, +emptycan, tenderness at R humerus greater tubercle, limited R shoulder ROM). In addition she has bilateral hand arthritis and weakness-thus her wheelchair must be optimized and as light as possible for her to be able to use it without exacerbating hand and shoulder pain and weakness. With her multiple sclerosis, her function fluctuates. On bad days she cannot walk >10 feet despite use of a rollator and her knees buckle on her unexpectedly. This has made it difficult for her todo meal prep, laundry, brushing her teeth. A manual wheelchair would facilitate by allowing her to move around the house with wheelchair and carry things to be able to cook/do laundry more easily. She also has insulin pump dependent diabetes and at times needs to access snacks urgently, and wheelchair helps with that. At times transfers are difficult, and she can't get off the toilet. With a manual chair, she would be able to pull [id number] to the toilet for an easy transfer. Of note, besides lower extremity proximal weakness from MS (which worsen with neurofatigue from MS), she has also had bilateral musculoskeletal problems with her knees that limit her walking. Right knee had R ACL reconstruction, lateral release of patella, medial meniscus repair. L knee had failed patellar realignment surgery. Josie needs the manual wheelchair to allow her to perform ADLs/IADLs and take care of herself and her family safely and efficiently. -for a new wheelchair you could use [employer] in [place] or [facility] -To modify current wheelchair, would recommend calling [employer] at [place] I will send a prescription to modify the seat [employer] [address] [facility] [address] [place] [address] -The following websites have information about vehicle modifications/wheelchair vans: https://Synbiota.org/ https://www.Contests4Causes/us/en.html https://www.Mail'Inside/ https://www.[employer].MyCrowd/ Neuropathic pain -you let me know you have been taking oxcarbazepine 300 mg twice a day for 1 week -oxcarbazepine 300 mg twice a day prescription provided to match your use. -need to check CBC, CMP labs for oxcarbazepine in 1 month. Please print order from [employer] and let us know once labs are done. -refill gabapentin 300-300-800 mg Nausea -refilling your phenergan to help your migraines -fyi tardive dyskinesia can be a side effect of phenergan (denies ever having this problem) B12 deficiency -your B12 level was low on B12 1000 mcg daily, may increase to sublingual 5000 mcg daily. Alternatively may do monthly B12 shots with needles/syringes. Hepatic steatosis -could consider aquatics classes locally (e.g. water walking) to help with adding more activity into your routine. -may continue PT (you told me you have somebody who works well with you) -Great work limiting saturated fat in the diet--this is a good move for your hepatic steatosis. Shenotes limiting pink and cooking more beans Follow up 6 months Histories, medications and problem list have been personally reviewed and updated as appropriate: YES. TOTAL TIME: I have spent 107 minutes on the patient's care on the date of service, including chart review/pre-charting prior to the visit, cota-[id number]-[id number] time with the patient, and documentation and coordination of care after the visit 12:54-1:03 pm. Prechart, chart review 1:03-2:09 pm. Office visit. 3:38-4:12 pm. Finished office documentation, pt instructions, orders and referrals (9), wheelchair justification. documented in this encounter Plan of Treatment Upcoming Encounters Date Type Specialty Care Team Description 01/06/2023 Telemedicine Neurology Elton Solitario, BROTH SETTER [address] [facility] [id number] [place] [address] 07/12/2023 Office Visit Neurology Chika Wilkinson MD [address], [address] [place] [id number] Scheduled Orders Name Type Priority Associated Diagnoses Orde r Schedule CBC with Diff Lab Routine Multiple sclerosis (HCC) Neuropathic pain Expected: 10/13/2022 (Approximate), Expires: 11/12/2023 Comprehensive Metabolic Panel Lab Routine Multiple sclerosis (HCC) Neuropathic pain Expected: 10/13/2022 (Approximate), Expires: 11/12/2023 Scheduled Referrals Name Type Priority Associated Diagnoses Orde r Schedule Referral to Physical Therapy - Ortho/Sports/Musculosk eletal Referral Routine Multiple sclerosis (HCC) Expected: 10/13/2022, Expires: 10/14/2023 documented as of this encounter Visit Diagnoses Diagnosis Multiple sclerosis (HCC)- Primary Multiple sclerosis Neuropathic pain Neuralgia, neuritis, and radiculitis, unspecified Nausea Nausea alone Vitamin B12 deficiency Other B-complex deficiencies Hepatic steatosis Other chronic nonalcoholic liver disease documented in this encounter Additional Health Concerns Assessment Noted Time PHQ-9 Depression Total Score: 11 023 1:51 PM PDT documented as of this encounter Care Teams Half Section Ironer Relationship Specialty Start Date End Date Wendi Fajardo, GILSON [facility] [address], [address] [place] [address] PCP - General Nurse Practitioner 10/05/21 Darby Elizalde MD [address] [facility] [id number] [place] [address] Physical Med & Rehab 06/20/17 Chika Wilkinson MD [employer] [facility] [address] [place] [address] Neurology 06/20/17 Danielle Price MD [facility] [address] [id number] [place] [phone] Rheumatology 11/07/18 Abraham Martinez MD [facility] [address] [place] [address] Endocrinology 11/07/18 documented as of this encounter
== END 2022-11-29 21:30 | disposition left against medical advice (07) ==
PROVIDERS: Emergency Provider Emergency Medicine; Family Provider Family Medicine; PCP Nurse Practitioner
CPT/HCPCS: 99281

== ENCOUNTER 2023-09-13 21:06 | Emergency (ER) | payer MEDICARE, OTHER, SELFPAY ==
[2023-01-17 15:03] VITALS: BMI 45.2
[2023-09-13 21:31] VITALS: BP 131/62; PULSE 86; RESP 20; TEMP 37.2; O2SAT 97; BMI 49.1
--- NOTE | 2023-09-14 00:08 | ED_ITS ---
HPI - Ear Problem General Chief complaint: Ear Stated complaint: rt ear pain, pain all over Time Seen by Provider: 09/13/23 23:49 Source: patient Mode of arrival: Ambulatory History of Present Illness HPI Narrative: Patient is a 40-year-old female history of multiple sclerosis hypertension hypothyroid type 1 diabetes ongoing right ear pain presenting today with worsening right ear pain. She states she is lost hearing in her right ear she has had pain since December. She was finally seen by ENT last week who did not give her any sort of answers. Today she woke up and excruciating pain. She tried to get into see your ENT but was told they were not available. She currently has a little bit sore throat she says to RAD. No fevers or chills. She says that her ear just hurts significantly worse. She has been on antibiotics she has been on drops she says nothing really helps. She has had multiple ear problems her whole life but this has gotten worse. She is very frustrated with the system. She has a 2nd opinion for ENT on September 20 but it is just trying to make it through the long holiday weekend. Related Data Home Medications Medication Instructions Recorded Confirmed levothyroxine 200 mcg tablet 200 mcg PO DAILY 02/07/18 09/07/23 topiramate 100 mg tablet 100 mg PO DAILY 02/07/18 09/07/23 zolpidem 5 mg tablet 5 mg PO BEDTIME PRN Insomnia 02/07/18 09/07/23 insulin aspart U-100 100 unit/mL See Rx Instructions .Route .COMPLEX 08/20/18 09/07/23 (3 mL) subcutaneous pen ibuprofen 800 mg tablet 600 mg PO Q8H PRN pain 08/14/19 09/07/23 trazodone 50 mg tablet 50 mg PO BEDTIME 08/14/19 09/07/23 potassium chloride 10 mEq 30 meq PO DAILY 11/18/19 09/07/23 tablet,extended release leflunomide 20 mg tablet 20 mg PO DAILY 08/03/21 09/07/23 montelukast 10 mg tablet 10 mg PO DAILY 08/03/21 09/07/23 triamterene 75 1 tab PO DAILY 08/03/21 09/07/23 mg-hydrochlorothiazide 50 mg tablet furosemide 20 mg tablet (Lasix) 20 mg PO Q OTHER DAY 01/17/23 09/07/23 doxycycline hyclate 100 mg capsule 100 mg PO BID 02/16/23 09/07/23 albuterol sulfate 2.5 mg/3 mL mg inhalation 07/10/23 09/07/23 (0.083 %) solution for nebulization alprazolam 0.25 mg tablet 0.25 mg PO DAILY 07/10/23 09/07/23 alprazolam 0.5 mg tablet 0.5 mg PO DAILY 07/10/23 09/07/23 amitriptyline 10 mg tablet 10 mg PO ONCE PM 07/10/23 09/07/23 amlodipine 10 mg tablet 10 mg PO DAILY 07/10/23 09/07/23 atorvastatin 20 mg tablet (Lipitor) 20 mg PO BEDTIME 07/10/23 09/07/23 baclofen 10 mg tablet 20 mg PO BID PRN Pain (Scale Score 07/10/23 09/07/23 1-3) blood-glucose sensor (Clearleap G6 #1 ea 07/10/23 09/07/23 Sensor device) clindamycin phosphate 1 % lotion 1 applic topical BID 07/10/23 09/07/23 clindamycin phosphate 1 % topical topical 07/10/23 09/07/23 solution clobetasol 0.05 % shampoo 1 applic topical 07/10/23 09/07/23 clobetasol 0.05 % topical ointment topical 07/10/23 09/07/23 cyanocobalamin (vitamin B-12) 1,000 mcg IM MONTHLY 07/10/23 09/07/23 1,000 mcg/mL injection solution dexamethasone 1 mg tablet 1 mg PO ONCE 07/10/23 09/07/23 diazepam 5 mg tablet 5 mg PO DAILY PRN 07/10/23 09/07/23 ergocalciferol (vitamin D2) 1,250 1,250 mcg PO 07/10/23 09/07/23 mcg (50,000 unit) capsule erythromycin 5 mg/gram (0.5 %) eye EYE-BOTH 07/10/23 09/07/23 ointment estradiol 0.05 mg/24 hr semiweekly 1 patch transdermal 2XW 07/10/23 09/07/23 transdermal patch fluconazole 150 mg tablet mg PO 07/10/23 09/07/23 gabapentin 100 mg capsule mg PO 07/10/23 09/07/23 insulin lispro 200 unit/mL (3 mL) SUBCUT 07/10/23 09/07/23 subcutaneous pen (Humalog KwikPen U-200 Insulin) ketoconazole 2 % topical cream applic topical 07/10/23 09/07/23 leflunomide 10 mg tablet 10 mg PO DAILY 07/10/23 09/07/23 levothyroxine 25 mcg tablet 25 mcg PO DAILY 07/10/23 09/07/23 methylprednisolone 4 mg tablets in 0 mg PO 07/10/23 09/07/23 a dose pack metoprolol succinate 25 mg 25 mg PO DAILY 07/10/23 09/07/23 tablet,extended release 24 hr ofloxacin 0.3 % ear drops drp otic (ear) DAILY 07/10/23 09/07/23 omeprazole 40 mg capsule,delayed 40 mg PO DAILY 07/10/23 09/07/23 release ondansetron 4 mg disintegrating 4 mg PO Q8H PRN 07/10/23 09/07/23 tablet oxcarbazepine 300 mg tablet 300 mg PO BID 07/10/23 09/07/23 potassium chloride 10 mEq 10 meq PO DAILY 07/10/23 09/07/23 tablet,extended release(part/cryst) sodium sul 1.479 gram-potas ch 12 tab PO DIRECTED 07/10/23 09/07/23 0.188 gram-magnes sul 0.225 gram tablet (Sutab) sodium,potassium,mag sulfates 17.5 PO 07/10/23 09/07/23 gram-3.13 gram-1.6 gram oral soln fezolinetant 45 mg tablet (Veozah) 45 mg PO DAILY 09/07/23 09/07/23 glucagon 1 mg/0.2 mL subcutaneous 1 mg SUBCUT ONCE 09/07/23 09/07/23 auto-injector (Alondra Huttonen 2-Pack) tirzepatide 2.5 mg/0.5 mL 2.5 mg SUBCUT QWEEK 09/07/23 09/07/23 subcutaneous pen injector (Juanita) tizanidine 2 mg tablet 4 mg PO BID 09/07/23 09/07/23 Previous Rx's Medication Instructions Recorded losartan 25 mg tablet 25 mg PO DAILY #30 tabs 08/04/21 meclizine 12.5 mg tablet 12.5 mg PO Q6HR PRN Vertigo #20 08/04/21 tabs oxycodone 5 mg tablet 5 mg PO Q4HR PRN Pain, Severe 08/04/21 (7-10) #10 tabs promethazine 25 mg tablet 12.5 mg (1/2 x 25 mg) PO Q6HR PRN 08/04/21 NAUSEA/VOMITING #20 tabs azithromycin 250 mg tablet See Rx Instructions PO .COMPLEX #6 09/14/23 tabs hydrocodone 5 mg-acetaminophen 325 1 tab PO Q6H PRN pain #10 tabs 09/14/23 mg tablet Allergies Allergy/AdvReac Type Severity Reaction Status Date / Time codeine Allergy Severe Rash Verified 07/10/23 14:44 lovastatin [From Advicor] Allergy Severe Anaphylaxis Verified 07/10/23 14:44 niacin [From Advicor] Allergy Severe Anaphylaxis Verified 07/10/23 14:44 pseudoephedrine Allergy Severe Anaphylaxis Verified 07/10/23 14:44 red (food color) Allergy Severe Anaphylaxis Verified 07/10/23 14:44 mushroom Allergy Unknown Verified 07/10/23 14:44 ampicillin Allergy Rash Verified 07/10/23 14:44 barium iodide Allergy Verified 07/10/23 14:44 erythromycin base Allergy Verified 07/10/23 14:44 glatiramer (copolymer 1) Allergy Verified 07/10/23 14:44 interferon beta-1a Allergy itching Verified 07/10/23 14:44 and rash Iodinated Contrast Media Allergy Verified 07/10/23 14:44 lisinopril Allergy Kidneys Verified 07/10/23 14:44 shut down metformin Allergy Gastrointestinal Verified 07/10/23 14:44 Upset Sulfa (Sulfonamide Allergy Verified 07/10/23 14:44 Antibiotics) Penicillins AdvReac Mild Gi Verified 07/10/23 14:44 intolerance artificial sweetners Allergy Uncoded 07/10/23 14:44 Patient History Medical History Psoriasis Eczema Acne Sleep apnea COPD (chronic obstructive pulmonary disease) Asthma Allergies Depression Anxiety Migraines Headache Shoulder pain Osteoporosis Osteopenia Foot pain Chronic back pain Chicken pox Vertigo Ruptured tympanic membrane (~1977) Recurrent sinusitis History of recurrent ear infection Hearing loss Cataracts, bilateral Painful menstrual periods Ovarian cyst Irregular menstrual cycle Heavy menstrual period Fibroids Endometriosis Kidney stones Irritable bowel syndrome GERD (gastroesophageal reflux disease) Gastroparesis Hypertension Dislocation of left patella Fatigue Hypothyroidism Raynauds disease Hyperlipidemia PCOS (polycystic ovarian syndrome) History of shingles Osteoarthritis Obstructive sleep apnea syndrome Diabetic gastroparesis Type 2 diabetes mellitus Chronically low serum potassium Diabetes Low vitamin D level Fibromyalgia Multiple sclerosis Surgical History Anesthesia History of partial hysterectomy (~2016) Hx of cholecystectomy History of repair of anterior cruciate ligament of right knee Family History Family/Other Loud snoring Sleep apnea Depression Dementia Father Loud snoring Sleep apnea Insomnia Restless legs syndrome Obesity Hypertension Heart disease Depression Bipolar disorder Hyperlipidemia Mental health problem Mother Insomnia Hypertension Depression Anxiety Eating disorder Eye disease Heart disease Hyperlipidemia Mental health problem Endometriosis Family/Other Loud snoring Obesity Hypertension Depression Anxiety Sister Eating disorder Heart disease Hypertension Hyperlipidemia Mental health problem Grandfather Cancer Mental health problem Grandmother Alzheimer's disease Hypertension Mental health problem Grandfather Cancer Grandmother Mental health problem Family/Other Freay-Danlos disease Mental health problem H/O autistic disorder Social History marital status: household members: spouse and children Smoking Status: Never smoker alcohol intake: current Smoking Status: Never smoker alcohol intake frequency: holidays/special occasions only Substance Use Type: does not use Exam Initial Vital Signs Initial Vital Signs: Vital Signs Temperature 98.9 F 09/13/23 21:31 Pulse Rate 86 09/13/23 21:31 Respiratory Rate 20 09/13/23 21:31 Blood Pressure 131/62 09/13/23 21:31 Pulse Oximetry 97 09/13/23 21:31 Oxygen Delivery Method Room Air 09/13/23 21:31 GENERAL: Alert pleasant 48 year-old and in no acute distress. HEENT: Head atraumatic,EOMI, pupils reactive, face symmetric, moist mucous membranes EARS: Tympanic membranes visualized, no erythema or bulging, no hemotympanum No significant erythema or drainage canal is slightly narrowed CARDIOVASCULAR: Regular rate and rhythm without murmurs, rubs or gallops. RESPIRATORY: Breath sounds equal bilaterally, no wheezes rales or rhonchi. EXTREMITIES: Normal range of motion, no clubbing or edema. Neurovascularly intact NEUROLOGICAL: Alert and oriented x4. SKIN: Warm, dry, no laceration, no petechiae, no rashes or lesions. Course Orders Ordered: Discontinued Medications Hydrocodone Bitart/Acetaminophen (Hydrocodone/Acet 5/325 Prepack) 1 bottle MISC DIRECTED ONE Stop: 09/14/23 00:11 Last Admin: 09/14/23 00:29 Dose: 1 bottle Documented By: FIONA Vital Signs Vital signs: Vital Signs - 8 hr 09/13/23 21:31 09/14/23 00:59 Temperature 98.9 F Pulse Rate 86 84 Respiratory Rate 20 16 Blood Pressure 131/62 147/67 H Pulse Oximetry 97 95 Oxygen Delivery Method Room Air Room Air Medical Decision Making [facility] Narrative Medical decision making narrative: Patient 40-year-old female presenting today with ongoing right ear pain. Significantly worse today. She was seen evaluated by ENT last week. She is actually scheduled to have a 2nd opinion September 20 with someone else. Today her pain is worse she has been trying to deal with the as an outpatient but unsuccessful. She is multiple medications at home none of them are helping. She also reports he is having upper respiratory symptoms slight sore throat minimal cough. This may actually be causing some of her worsening ear pain I do not see any obvious infection there is no drainage or evidence of otitis externa tympanic membrane is intact without any sort of fluid or erythema. We did discuss antibiotics but recommended holding off. He understands. She is overall frustrated. I see no evidence of otitis media or externa today. Suspect eustachian tube dysfunction Discharge Plan Departure Patient Disposition: Home Clinical Impression: Acute dysfunction of right eustachian tube Instructions: DI for Eustachian Tube Dysfunction-Adult Activity Restrictions/Additional Instructions: *You have been diagnosed with eustachian tube dysfunction *What to do: At this time I do not see evidence of infection but will review antibiotics if you are still having significant pain in the next couple of days you may start. *Continue to take medications as directed Azithromycin take as directed [place] 1 tablet every 6 hours if needed for severe pain *Follow up with your primary care provider in 2-3 days or call [phone] Follow up with the ENT as scheduled next week *Return to ER if you should have increasing pain drainage fever or any new, worsening or concerning symptoms CONTROLLED SUBSTANCE DISCHARGE (Narcotoic/benzodiazepine/Flexeril/Phenergan) 1. You have been prescribed narcotic medications, it does have acetaminophen/Tylenol/paracetamol in it, DO NOT TAKE MORE THAN 4,00mg in 24 hours of Tylenol. TRAMADOL DOES NOT CONTAIN TYLENOL 2. Please understand that we cannot provide further refills of narcotics, benzodiazepines or controlled substances through the ED and her pain management will need to be through your provider. 3. While on these medications you cannot drive or operate heavy machinery. 4. You cannot sign legal documents or perform any duties such as this. 5. As long as you're taking opiate pain medications he should also be taking a stool softener such as Colace, Dulcolax, MiraLAX or prune juice, to help avoid constipation. Prescriptions: New azithromycin 250 mg tablet See Rx Instructions PO .COMPLEX Qty: 6 0RF Rx Instructions: For 250 mg dose pack: take 500 mg today (day 1), then 250 mg for 4 days (days 2-5) hydrocodone-acetaminophen 5-325 mg tablet 1 tab PO Q6H PRN (Reason: pain) Qty: 10 0RF No Action atorvastatin [Lipitor] 20 mg tablet 20 mg PO BEDTIME amitriptyline 10 mg tablet 10 mg PO ONCE PM omeprazole 40 mg capsule,delayed release(DR/EC) 40 mg PO DAILY metoprolol succinate 25 mg tablet extended release 24 hr 25 mg PO DAILY ergocalciferol (vitamin D2) 1,250 mcg (50,000 unit) capsule 1,250 mcg PO Humalog KwikPen Insulin 200 unit/mL (3 mL) insulin pen SUBCUT Patient Comments: [NO ORIGINAL SIG] clindamycin phosphate 1 % solution topical estradiol 0.05 mg/24 hr patch semiweekly 1 patch transdermal 2XW methylprednisolone 4 mg tablets,dose pack 0 mg PO albuterol sulfate 2.5 mg /3 mL (0.083 %) solution for nebulization inhalation cyanocobalamin (vitamin B-12) 1,000 mcg/mL solution 1,000 mcg IM MONTHLY clobetasol 0.05 % ointment topical leflunomide 10 mg tablet 10 mg PO DAILY erythromycin 5 mg/gram (0.5 %) ointment EYE-BOTH Sutab 1.479-0.188- 0.225 gram tablet 12 tab PO DIRECTED ofloxacin 0.3 % drops otic (ear) DAILY potassium chloride 10 mEq tablet,ER particles/crystals 10 meq PO DAILY amlodipine 10 mg tablet 10 mg PO DAILY levothyroxine 25 mcg tablet 25 mcg PO DAILY sodium,potassium,mag sulfates 17.5-3.13-1.6 gram recon soln PO gabapentin 100 mg capsule PO diazepam 5 mg tablet 5 mg PO DAILY PRN alprazolam 0.25 mg tablet 0.25 mg PO DAILY alprazolam 0.5 mg tablet 0.5 mg PO DAILY ondansetron 4 mg tablet,disintegrating 4 mg PO Q8H PRN ketoconazole 2 % cream topical oxcarbazepine 300 mg tablet 300 mg PO BID dexamethasone 1 mg tablet 1 mg PO ONCE fluconazole 150 mg tablet PO clobetasol 0.05 % shampoo 1 applic topical clindamycin phosphate 1 % lotion 1 applic topical BID (DME) Clearleap G6 Sensor Device See Rx Instructions .ROUTE Q10D Qty: 1 Rx Instructions: As directed tizanidine 2 mg tablet 4 mg PO BID levothyroxine 200 mcg tablet 200 mcg PO DAILY topiramate 100 mg tablet 100 mg PO DAILY zolpidem 5 mg tablet 5 mg PO BEDTIME PRN (Reason: Insomnia) Patient Comments: TK 1 T PO AT NIGHT PRF INSOMNIA baclofen 10 mg tablet 20 mg PO BID PRN (Reason: Pain (Scale Score 1-3)) insulin aspart U-100 100 unit/mL (3 mL) insulin pen See Rx Instructions .ROUTE .COMPLEX Patient Comments: ADM 30 UNI SC TID WC Rx Instructions: has insulin pump. takes 1 unit of insulin per every 2 carbs. ibuprofen 800 mg tablet 600 mg PO Q8H PRN (Reason: pain) trazodone 50 mg Tablet 50 mg PO BEDTIME Rx Instructions: take one to two tablets at bed time up to 100mg by mouth potassium chloride 10 mEq Tablet Extended Release 30 meq PO DAILY leflunomide 20 mg Tablet 20 mg PO DAILY montelukast 10 mg Tablet 10 mg PO DAILY triamterene-hydrochlorothiazid 75-50 mg Tablet 1 tab PO DAILY meclizine 12.5 mg Tablet 12.5 mg PO Q6HR PRN (Reason: Vertigo) Qty: 20 0RF promethazine 25 mg Tablet 12.5 mg PO Q6HR PRN (Reason: NAUSEA/VOMITING) Qty: 20 0RF losartan 25 mg Tablet 25 mg PO DAILY Qty: 30 0RF oxycodone 5 mg Tablet 5 mg PO Q4HR PRN (Reason: Pain, Severe (7-10)) Qty: 10 0RF Gvoke HypoPen 2-Pack 1 mg/0.2 mL auto-injector 1 mg SUBCUT ONCE Rx Instructions: as a single dose; may repeat once after 15 minutes if no response Mounjaro 2.5 mg/0.5 mL pen injector 2.5 mg SUBCUT QWEEK Veozah 45 mg tablet 45 mg PO DAILY furosemide [Lasix] 20 mg tablet 20 mg PO Q OTHER DAY doxycycline hyclate 100 mg capsule 100 mg PO BID Referrals: Rica Lovell DO [Primary Care Provider] - Stand Alone Forms: Patient Portal/API
[2023-09-14] MEDS: HYDROCODONE/ACET 5/325 PREPACK 1 BOTTLE MISC (00:29)
[2023-09-14 00:59] VITALS: BP 147/67; PULSE 84; RESP 16; O2SAT 95
== END 2023-09-14 01:00 | disposition home or self-care (01) ==
PROVIDERS: Emergency Provider Emergency Medicine; PCP Family Medicine
DX: H69.81 Other specified disorders of Eustachian tube, right ear (principal)
CPT/HCPCS: 99281; 99283

== ENCOUNTER 2023-12-15 15:21 | Emergency (ER) | payer MEDICARE, OTHER, SELFPAY ==
[2023-01-17 15:03] VITALS: BMI 45.2
[2023-12-15] VITALS (9 sets, daily range): BP systolic 126–140; BP diastolic 56–65; PULSE 82–91; RESP 16; TEMP 36.5–37.4; O2SAT 94–98; BMI 48.2
[2023-12-15 16:03] LABS: Add Manual Diff / Slide Review NO; Basophils Absolute Auto 100 /uL (0-100); Basophils Percent Auto 0.9 % (0-2); Eosinophils Absolute Auto 200 /uL (0-450); Eosinophils Percent Auto 2.1 % (2-4); Hematocrit 40.1 % (36-46); Hemoglobin 12.8 g/dL (12.0-16.0); Lymphocytes Absolute Auto 3800 /uL (1100-4500); Lymphocytes Percent Auto 32.6 % (25-40); Mean Corpuscular Hemoglobin 26.8 PG (26-34); Mean Corpuscular Volume 83.9 fL (80-100); Monocytes Absolute Auto 600 /uL (0-900); Monocytes Percent Auto 4.8 % (3-14); Neutrophils Absolute Auto 6900 /uL (1500-7000); Neutrophils Percent Auto 59.6 % (50-75); Platelet Count 296 X10^3/uL (150-400); Red Blood Cell Count 4.78 X10^6/uL (4.0-5.2); Red Cell Distribution Width 16.3 % (11.6-14.8); White Blood Cell Count 11.6 X10^3/uL (4.5-11.0)
[2023-12-15 16:17] LABS: Alanine Aminotransferase 20 IU/L (<35); Albumin 3.5 g/dL (3.5-5.0); Albumin Globulin Ratio 1.5 (1.0-2.8); Alkaline Phosphatase 81 U/L (38-126); Aspartate Aminotransferase 22 IU/L (14-36); BUN Creatinine Ratio 15.3 (6-22); Bilirubin Total 0.4 mg/dL (0.2-1.3); Blood Urea Nitrogen 13 mg/dL (7-17); Calcium 8.8 mg/dL (8.4-10.2); Carbon Dioxide 26 mmol/L (22-32); Chloride 107 mmol/L (98-107); Estimated Glomerular Filt Rate > 60 mL/min (>60); Globulin 2.3 g/dL (1.7-4.1); Glucose 196 mg/dL (70-100); HEMOLYSIS < 15 (0-50); Lipase 21 U/L (23-300); Potassium 4.2 mmol/L (3.4-5.1); Sodium 138 mmol/L (137-145); Total Protein 5.8 g/dL (6.3-8.2)
[2023-12-15 16:29] LABS: Troponin I < 0.012 ng/mL (0.01-0.034)
--- NOTE | 2023-12-15 17:03 | EKG_ITS ---
[facility] [address] [address] Test Date: 2023-12-15 Pat Name: Josie Silvestre Department: [facility] Room: Gender: Female [employer]: DENI : 1975 Requested By: Order Number: [id number] Reading MD: Brett Barahona MD Measurements Intervals [place] Rate: 85 P: 21 FL: 140 QRS: 11 QRSD: 78 T: 31 QT: 386 QTc: 459 Interpretive Statements Normal sinus rhythm Electronically Signed On 12-17-2023 8:34:20 PDT by Brett Barahona MD
--- NOTE | 2023-12-15 17:50 | ED.NAVMDI ---
HPI - Nausea/Vomiting/Diarrhea <Lior Pisano PA-C - Last Filed: 12/15/23 17:59> General Chief complaint: Nausea/Vomiting/Diarrhea Stated complaint: vomiting, abd px Time Seen by Provider: 12/15/23 15:34 Source: patient Mode of arrival: Ambulatory History of Present Illness HPI Narrative: This patient is a 48-year-old female that presents today for nausea, vomiting and diarrhea. She denies hemoptysis, hematemesis, melena or hematochezia. No treatments have been tried for this. This has been ongoing since today. She denies any radiation of her abdominal pain. It is located in the epigastric region. The patient has not seen her PCP for today's chief complaint. She also denies night sweats, fever, chills, chest pain or shortness of breath. She also denies any recent travel, rash or dysuria. The patient's needs and her creatinine was, almost 5 two weeks ago. However, this is questionable since her renal function is completely normal at today's visit. Related Data Home Medications Medication Instructions Recorded Confirmed levothyroxine 200 mcg tablet 200 mcg PO DAILY 02/07/18 09/07/23 topiramate 100 mg tablet 100 mg PO DAILY 02/07/18 09/07/23 zolpidem 5 mg tablet 5 mg PO BEDTIME PRN Insomnia 02/07/18 09/07/23 insulin aspart U-100 100 unit/mL See Rx Instructions .Route .COMPLEX 08/20/18 09/07/23 (3 mL) subcutaneous pen ibuprofen 800 mg tablet 600 mg PO Q8H PRN pain 08/14/19 09/07/23 trazodone 50 mg tablet 50 mg PO BEDTIME 08/14/19 09/07/23 potassium chloride 10 mEq 30 meq PO DAILY 11/18/19 09/07/23 tablet,extended release leflunomide 20 mg tablet 20 mg PO DAILY 08/03/21 09/07/23 montelukast 10 mg tablet 10 mg PO DAILY 08/03/21 09/07/23 triamterene 75 1 tab PO DAILY 08/03/21 09/07/23 mg-hydrochlorothiazide 50 mg tablet furosemide 20 mg tablet (Lasix) 20 mg PO Q OTHER DAY 01/17/23 09/07/23 doxycycline hyclate 100 mg capsule 100 mg PO BID 02/16/23 09/07/23 albuterol sulfate 2.5 mg/3 mL mg inhalation 07/10/23 09/07/23 (0.083 %) solution for nebulization alprazolam 0.25 mg tablet 0.25 mg PO DAILY 07/10/23 09/07/23 alprazolam 0.5 mg tablet 0.5 mg PO DAILY 07/10/23 09/07/23 amitriptyline 10 mg tablet 10 mg PO ONCE PM 07/10/23 09/07/23 amlodipine 10 mg tablet 10 mg PO DAILY 07/10/23 09/07/23 atorvastatin 20 mg tablet (Lipitor) 20 mg PO BEDTIME 07/10/23 09/07/23 baclofen 10 mg tablet 20 mg PO BID PRN Pain (Scale Score 07/10/23 09/07/23 1-3) blood-glucose sensor (SideTour G6 #1 ea 07/10/23 09/07/23 Sensor device) clindamycin phosphate 1 % lotion 1 applic topical BID 07/10/23 09/07/23 clindamycin phosphate 1 % topical topical 07/10/23 09/07/23 solution clobetasol 0.05 % shampoo 1 applic topical 07/10/23 09/07/23 clobetasol 0.05 % topical ointment topical 07/10/23 09/07/23 cyanocobalamin (vitamin B-12) 1,000 mcg IM MONTHLY 07/10/23 09/07/23 1,000 mcg/mL injection solution dexamethasone 1 mg tablet 1 mg PO ONCE 07/10/23 09/07/23 diazepam 5 mg tablet 5 mg PO DAILY PRN 07/10/23 09/07/23 ergocalciferol (vitamin D2) 1,250 1,250 mcg PO 07/10/23 09/07/23 mcg (50,000 unit) capsule erythromycin 5 mg/gram (0.5 %) eye EYE-BOTH 07/10/23 09/07/23 ointment estradiol 0.05 mg/24 hr semiweekly 1 patch transdermal 2XW 07/10/23 09/07/23 transdermal patch fluconazole 150 mg tablet mg PO 07/10/23 09/07/23 gabapentin 100 mg capsule mg PO 07/10/23 09/07/23 insulin lispro 200 unit/mL (3 mL) SUBCUT 07/10/23 09/07/23 subcutaneous pen (Humalog KwikPen U-200 Insulin) ketoconazole 2 % topical cream applic topical 07/10/23 09/07/23 leflunomide 10 mg tablet 10 mg PO DAILY 07/10/23 09/07/23 levothyroxine 25 mcg tablet 25 mcg PO DAILY 07/10/23 09/07/23 methylprednisolone 4 mg tablets in 0 mg PO 07/10/23 09/07/23 a dose pack metoprolol succinate 25 mg 25 mg PO DAILY 07/10/23 09/07/23 tablet,extended release 24 hr ofloxacin 0.3 % ear drops drp otic (ear) DAILY 07/10/23 09/07/23 omeprazole 40 mg capsule,delayed 40 mg PO DAILY 07/10/23 09/07/23 release ondansetron 4 mg disintegrating 4 mg PO Q8H PRN 07/10/23 09/07/23 tablet oxcarbazepine 300 mg tablet 300 mg PO BID 07/10/23 09/07/23 potassium chloride 10 mEq 10 meq PO DAILY 07/10/23 09/07/23 tablet,extended release(part/cryst) sodium sul 1.479 gram-potas ch 12 tab PO DIRECTED 07/10/23 09/07/23 0.188 gram-magnes sul 0.225 gram tablet (Sutab) sodium,potassium,mag sulfates 17.5 PO 07/10/23 09/07/23 gram-3.13 gram-1.6 gram oral soln fezolinetant 45 mg tablet (Veozah) 45 mg PO DAILY 09/07/23 09/07/23 glucagon 1 mg/0.2 mL subcutaneous 1 mg SUBCUT ONCE 09/07/23 09/07/23 auto-injector (Alondra Huttonen 2-Pack) tirzepatide 2.5 mg/0.5 mL 2.5 mg SUBCUT QWEEK 09/07/23 09/07/23 subcutaneous pen injector (Juanita) tizanidine 2 mg tablet 4 mg PO BID 09/07/23 09/07/23 Previous Rx's Medication Instructions Recorded losartan 25 mg tablet 25 mg PO DAILY #30 tabs 08/04/21 meclizine 12.5 mg tablet 12.5 mg PO Q6HR PRN Vertigo #20 08/04/21 tabs oxycodone 5 mg tablet 5 mg PO Q4HR PRN Pain, Severe 08/04/21 (7-10) #10 tabs promethazine 25 mg tablet 12.5 mg (1/2 x 25 mg) PO Q6HR PRN 08/04/21 NAUSEA/VOMITING #20 tabs azithromycin 250 mg tablet See Rx Instructions PO .COMPLEX #6 09/14/23 tabs hydrocodone 5 mg-acetaminophen 325 1 tab PO Q6H PRN pain #10 tabs 09/14/23 mg tablet dicyclomine 20 mg tablet 20 mg PO TID PRN abdominal pain 12/15/23 #20 tabs ondansetron 8 mg disintegrating 8 mg PO Q8H PRN nausea and 12/15/23 tablet vomiting #20 tabs Allergies Allergy/AdvReac Type Severity Reaction Status Date / Time codeine Allergy Severe Rash Verified 12/15/23 15:29 lovastatin [From Advicor] Allergy Severe Anaphylaxis Verified 12/15/23 15:29 niacin [From Advicor] Allergy Severe Anaphylaxis Verified 12/15/23 15:29 pseudoephedrine Allergy Severe Anaphylaxis Verified 12/15/23 15:29 red (food color) Allergy Severe Anaphylaxis Verified 12/15/23 15:29 mushroom Allergy Unknown Verified 12/15/23 15:29 ampicillin Allergy Rash Verified 12/15/23 15:29 barium iodide Allergy Verified 12/15/23 15:29 erythromycin base Allergy Verified 12/15/23 15:29 glatiramer (copolymer 1) Allergy Verified 12/15/23 15:29 interferon beta-1a Allergy itching Verified 12/15/23 15:29 and rash Iodinated Contrast Media Allergy Verified 12/15/23 15:29 lisinopril Allergy Kidneys Verified 12/15/23 15:29 shut down metformin Allergy Gastrointestinal Verified 12/15/23 15:29 Upset Sulfa (Sulfonamide Allergy Verified 12/15/23 15:29 Antibiotics) Penicillins AdvReac Mild Gi Verified 12/15/23 15:29 intolerance artificial sweetners Allergy Uncoded 07/10/23 14:44 Review of Systems <Lior Pisano PA-C - Last Filed: 12/15/23 17:59> Review of Systems Narrative: General: See HPI GI: See HPI All other review of systems have been reviewed and are ultimately negative unless otherwise stated in the HPI Patient History <Lior Pisano PA-C - Last Filed: 12/15/23 17:59> Medical History Psoriasis Eczema Acne Sleep apnea COPD (chronic obstructive pulmonary disease) Asthma Allergies Depression Anxiety Migraines Headache Shoulder pain Osteoporosis Osteopenia Foot pain Chronic back pain Chicken pox Vertigo Ruptured tympanic membrane (~1977) Recurrent sinusitis History of recurrent ear infection Hearing loss Cataracts, bilateral Painful menstrual periods Ovarian cyst Irregular menstrual cycle Heavy menstrual period Fibroids Endometriosis Kidney stones Irritable bowel syndrome GERD (gastroesophageal reflux disease) Gastroparesis Hypertension Dislocation of left patella Fatigue Hypothyroidism Raynauds disease Hyperlipidemia PCOS (polycystic ovarian syndrome) History of shingles Osteoarthritis Obstructive sleep apnea syndrome Diabetic gastroparesis Type 2 diabetes mellitus Chronically low serum potassium Diabetes Low vitamin D level Fibromyalgia Multiple sclerosis Surgical History Anesthesia History of partial hysterectomy (~2015) Hx of cholecystectomy History of repair of anterior cruciate ligament of right knee Family History Family/Other Loud snoring Sleep apnea Depression Dementia Father Loud snoring Sleep apnea Insomnia Restless legs syndrome Obesity Hypertension Heart disease Depression Bipolar disorder Hyperlipidemia Mental health problem Mother Insomnia Hypertension Depression Anxiety Eating disorder Eye disease Heart disease Hyperlipidemia Mental health problem Endometriosis Family/Other Loud snoring Obesity Hypertension Depression Anxiety Sister Eating disorder Heart disease Hypertension Hyperlipidemia Mental health problem Grandfather Cancer Mental health problem Grandmother Alzheimer's disease Hypertension Mental health problem Grandfather Cancer Grandmother Mental health problem Family/Other Freya-Danlos disease Mental health problem H/O autistic disorder Social History marital status: household members: spouse and children Smoking Status: Never smoker alcohol intake: current Smoking Status: Never smoker alcohol intake frequency: holidays/special occasions only Substance Use Type: does not use Exam <Lior Pisano PA-C - Last Filed: 12/15/23 17:59> Initial Vital Signs Initial Vital Signs: Vital Signs Temperature 97.7 F 12/15/23 15:23 Pulse Rate 85 12/15/23 15:23 Respiratory Rate 16 12/15/23 15:23 Blood Pressure 140/65 12/15/23 15:23 Pulse Oximetry 95 12/15/23 15:23 Oxygen Delivery Method Room Air 12/15/23 15:23 Const General: cooperative, healthy appearing, comfortable, well developed and well groomed [facility] Head: normal to inspection, normocephalic and atraumatic Ears: hearing grossly normal bilaterally and external ears normal Nose: external nose normal and nares normal Face and sinus: normal facial exam Mouth: oral mucosae normal Throat: posterior oropharynx normal Eyes General: Yes appearance normal, both eyes and all related structures Neck Neck: normal visual inspection, full ROM and no meningeal signs Resp Effort & Inspection: normal respiratory effort and able to speak in complete sentences Cardio Rate: regular rate Rhythm: regular rhythm Heart Sounds: S1 normal and S2 normal GI Inspection: normal to inspection and obesity Palpation: soft and no hepatosplenomegaly General: other ( no CVA tenderness bilaterally) Back/Spine/Pelvis Back: normal to inspection Skin General: no rashes or lesions noted, elasticity normal and turgor normal Neuro General: patient alert, patient awake and patient oriented x3 Extrem General: normal to inspection and full ROM Psych Appearance: grossly normal and well kempt <Vesna Dewey DO - Last Filed: 12/20/23 05:25> Initial Vital Signs Initial Vital Signs: Vital Signs Temperature 97.7 F 12/15/23 15:23 Pulse Rate 85 12/15/23 15:23 Respiratory Rate 16 12/15/23 15:23 Blood Pressure 140/65 12/15/23 15:23 Pulse Oximetry 95 12/15/23 15:23 Oxygen Delivery Method Room Air 12/15/23 15:23 Course <Lior Pisano PA-C - Last Filed: 12/15/23 17:59> Course Course Narrative: Patient was seen and examined. Labs were ordered including Zofran ODT was administered. The patient felt significantly improved after finding out that her labs were unremarkable and with Zofran. Patient was then prepped for discharge home it was noted that she had no episodes of vomiting or diarrhea during her 2+ our ER visit. Orders Ordered: Discontinued Medications Ondansetron HCl (Ondansetron 4 Mg/2 Ml Inj) 4 mg IV NOW PRN PRN Reason: Nausea And Vomiting Ondansetron HCl (Ondansetron 4 Mg Odt) 4 mg PO NOW PRN PRN Reason: Nausea And Vomiting Ondansetron HCl (Ondansetron 4 Mg Odt) 4 mg SL NOW ONE Stop: 12/15/23 18:04 Last Admin: 12/15/23 18:11 Dose: 4 mg Documented By: DENI Vital Signs Vital signs: Vital Signs - 8 hr 12/15/23 15:23 Temperature 97.7 F Pulse Rate 85 Respiratory Rate 16 Blood Pressure 140/65 Pulse Oximetry 95 Oxygen Delivery Method Room Air <Vesna Dewey DO - Last Filed: 12/20/23 05:25> Orders Ordered: Discontinued Medications Ondansetron HCl (Ondansetron 4 Mg/2 Ml Inj) 4 mg IV NOW PRN PRN Reason: Nausea And Vomiting Ondansetron HCl (Ondansetron 4 Mg Odt) 4 mg PO NOW PRN PRN Reason: Nausea And Vomiting Ondansetron HCl (Ondansetron 4 Mg Odt) 4 mg SL NOW ONE Stop: 12/15/23 18:04 Last Admin: 12/15/23 18:11 Dose: 4 mg Documented By: DENI Vital Signs Vital signs: Vital Signs - 8 hr 12/15/23 15:23 Temperature 97.7 F Pulse Rate 85 Respiratory Rate 16 Blood Pressure 140/65 Pulse Oximetry 95 Oxygen Delivery Method Room Air MDM - Nausea/Vomiting/Diarrhea <Lior Pisano PA-C - Last Filed: 12/15/23 17:59> Differential Diagnosis Differential diagnosis: Likely gastroenteritis, drug-induced nausea and vomiting, dehydration and other ( UTI, pyelonephritis, acute kidney injury, pancreatitis) Medical Records Attestation: I reviewed the patient's medical records. Lab Data Attestation: I reviewed the patient's lab results. 12/15/23 15:54 12/15/23 15:54 Labs: Lab Results 12/15/23 Range/Units 15:54 WBC 11.6 H (4.5-11.0) X10^3/uL RBC 4.78 (4.0-5.2) X10^6/uL Hgb 12.8 (12.0-16.0) g/dL Hct 40.1 (36-46) % MCV 83.9 (80-100) fL MCH 26.8 (26-34) PG MCHC 32.0 (30-36) % RDW 16.3 H (11.6-14.8) % Plt Count 296 (150-400) X10^3/uL Neut % (Auto) 59.6 (50-75) % Lymph % (Auto) 32.6 (25-40) % Garfield % (Auto) 4.8 (3-14) % Eos % (Auto) 2.1 (2-4) % Baso % (Auto) 0.9 (0-2) % Neut # (Auto) 6900 (8853-6042) /uL Lymph # (Auto) 3800 (6499-5244) /uL Garfield # (Auto) 600 (0-900) /uL Eos # (Auto) 200 (0-450) /uL Baso # (Auto) 100 (0-100) /uL Sodium 138 (137-145) mmol/L Potassium 4.2 (3.4-5.1) mmol/L Chloride 107 (98-107) mmol/L Carbon Dioxide 26 (22-32) mmol/L BUN 13 (7-17) mg/dL Creatinine 0.85 (0.52-1.04) mg/dL Estimated GFR > 60 (>60) mL/min BUN/Creatinine Ratio 15.3 (6-22) Glucose 196 H (70-100) mg/dL Calcium 8.8 (8.4-10.2) mg/dL Total Bilirubin 0.4 (0.2-1.3) mg/dL AST 22 (14-36) IU/L ALT 20 (<35) IU/L Alkaline Phosphatase 81 (38-126) U/L Troponin I < 0.012 (0.01-0.034) ng/mL Total Protein 5.8 L (6.3-8.2) g/dL Albumin 3.5 (3.5-5.0) g/dL Globulin 2.3 (1.7-4.1) g/dL Albumin/Globulin Ratio 1.5 (1.0-2.8) Lipase 21 L (23-300) U/L Point of Care Testing Test Results Negative Urine Dip Bedside Urine Glucose Negative Bedside Urine Bilirubin - Negative Bedside Urine Ketone - Negative Urine Specific Pilot 1.030 Bedside Urine Occult Blood - Negative Bedside Urine pH 5.5 Bedside Urine Protein - Negative Bedside Urine Urobilinogen - Negative Bedside Urine Nitrite - Negative Bedside Urine Leukocytes - Negative Esterase ECG Data Attestation: I personally reviewed and interpreted this ECG as follows: Interpretation: 12 lead EKG performed on 12/15/2023 at 5:03 p.m. reveals normal sinus rhythm with a ventricular rate of 84 beats per minute. No ST, T-wave elevation, depression or ectopy noted per my interpretation. [facility] Narrative Medical decision making narrative: At this time, the patient appears to be experiencing a viral gastroenteritis such as nausea, vomiting and diarrhea. There is no evidence of GI bleed. She has no chest pain or shortness of breath. Her EKG is reassuring. I do not believe this is a STEMI or NSTEMI. The patient's labs are unremarkable. I also do not believe this is pancreatitis or cholecystitis. Her lipase and LFTs are within normal limits. The patient's niece and her creatinine 2 weeks ago was 5+ however, her renal function is back to normal. The urinalysis shows no gross abnormalities and small. I do not believe this is a UTI or pyelonephritis. There is no evidence of acute kidney injury or dehydration. The patient will be started on Zofran and dicyclomine. She understands the treatment plan. There are no additional questions at the time of discharge and she will follow up as required. <Vesna Dewey, - Last Filed: 12/20/23 05:25> Lab Data Labs: Lab Results 12/15/23 Range/Units 15:54 WBC 11.6 H (4.5-11.0) X10^3/uL RBC 4.78 (4.0-5.2) X10^6/uL Hgb 12.8 (12.0-16.0) g/dL Hct 40.1 (36-46) % MCV 83.9 (80-100) fL MCH 26.8 (26-34) PG MCHC 32.0 (30-36) % RDW 16.3 H (11.6-14.8) % Plt Count 296 (150-400) X10^3/uL Neut % (Auto) 59.6 (50-75) % Lymph % (Auto) 32.6 (25-40) % Garfield % (Auto) 4.8 (3-14) % Eos % (Auto) 2.1 (2-4) % Baso % (Auto) 0.9 (0-2) % Neut # (Auto) 6900 (2559-5895) /uL Lymph # (Auto) 3800 (1991-4531) /uL Garfield # (Auto) 600 (0-900) /uL Eos # (Auto) 200 (0-450) /uL Baso # (Auto) 100 (0-100) /uL Sodium 138 (137-145) mmol/L Potassium 4.2 (3.4-5.1) mmol/L Chloride 107 (98-107) mmol/L Carbon Dioxide 26 (22-32) mmol/L BUN 13 (7-17) mg/dL Creatinine 0.85 (0.52-1.04) mg/dL Estimated GFR > 60 (>60) mL/min BUN/Creatinine Ratio 15.3 (6-22) Glucose 196 H (70-100) mg/dL Calcium 8.8 (8.4-10.2) mg/dL Total Bilirubin 0.4 (0.2-1.3) mg/dL AST 22 (14-36) IU/L ALT 20 (<35) IU/L Alkaline Phosphatase 81 (38-126) U/L Troponin I < 0.012 (0.01-0.034) ng/mL Total Protein 5.8 L (6.3-8.2) g/dL Albumin 3.5 (3.5-5.0) g/dL Globulin 2.3 (1.7-4.1) g/dL Albumin/Globulin Ratio 1.5 (1.0-2.8) Lipase 21 L (23-300) U/L Point of Care Testing Test Results Negative Urine Dip Bedside Urine Glucose Negative Bedside Urine Bilirubin - Negative Bedside Urine Ketone - Negative Urine Specific Pilot 1.030 Bedside Urine Occult Blood - Negative Bedside Urine pH 5.5 Bedside Urine Protein - Negative Bedside Urine Urobilinogen - Negative Bedside Urine Nitrite - Negative Bedside Urine Leukocytes - Negative Esterase Discharge Plan Departure Patient Disposition: Home Clinical Impression: Nausea vomiting and diarrhea Type 2 diabetes mellitus Qualifiers: Diabetes mellitus bed bug exterminator insulin use: with bed bug exterminator use Diabetes mellitus complication status: without complication Qualified Code(s): E11.9 - Type 2 diabetes mellitus without complications Instructions: Nausea and Vomiting-Adult Activity Restrictions/Additional Instructions: Start the medications today as prescribed take as needed Increase clear fluid intake and restless weekend Consume a bland diet throughout the weekend Return here for any new, emergent concerns or if you worsen in anyway Prescriptions: New ondansetron 8 mg tablet,disintegrating 8 mg PO Q8H PRN (Reason: nausea and vomiting) Qty: 20 0RF dicyclomine 20 mg tablet 20 mg PO TID PRN (Reason: abdominal pain) Qty: 20 0RF No Action atorvastatin [Lipitor] 20 mg tablet 20 mg PO BEDTIME amitriptyline 10 mg tablet 10 mg PO ONCE PM omeprazole 40 mg capsule,delayed release(DR/EC) 40 mg PO DAILY metoprolol succinate 25 mg tablet extended release 24 hr 25 mg PO DAILY ergocalciferol (vitamin D2) 1,250 mcg (50,000 unit) capsule 1,250 mcg PO Humalog KwikPen Insulin 200 unit/mL (3 mL) insulin pen SUBCUT Patient Comments: [NO ORIGINAL SIG] clindamycin phosphate 1 % solution topical estradiol 0.05 mg/24 hr patch semiweekly 1 patch transdermal 2XW methylprednisolone 4 mg tablets,dose pack 0 mg PO albuterol sulfate 2.5 mg /3 mL (0.083 %) solution for nebulization inhalation cyanocobalamin (vitamin B-12) 1,000 mcg/mL solution 1,000 mcg IM MONTHLY clobetasol 0.05 % ointment topical leflunomide 10 mg tablet 10 mg PO DAILY erythromycin 5 mg/gram (0.5 %) ointment EYE-BOTH Sutab 1.479-0.188- 0.225 gram tablet 12 tab PO DIRECTED ofloxacin 0.3 % drops otic (ear) DAILY potassium chloride 10 mEq tablet,ER particles/crystals 10 meq PO DAILY amlodipine 10 mg tablet 10 mg PO DAILY levothyroxine 25 mcg tablet 25 mcg PO DAILY sodium,potassium,mag sulfates 17.5-3.13-1.6 gram recon soln PO gabapentin 100 mg capsule PO diazepam 5 mg tablet 5 mg PO DAILY PRN alprazolam 0.25 mg tablet 0.25 mg PO DAILY alprazolam 0.5 mg tablet 0.5 mg PO DAILY ondansetron 4 mg tablet,disintegrating 4 mg PO Q8H PRN ketoconazole 2 % cream topical oxcarbazepine 300 mg tablet 300 mg PO BID dexamethasone 1 mg tablet 1 mg PO ONCE fluconazole 150 mg tablet PO clobetasol 0.05 % shampoo 1 applic topical clindamycin phosphate 1 % lotion 1 applic topical BID (DME) Dexcom G6 Sensor Device See Rx Instructions .ROUTE Q10D Qty: 1 Rx Instructions: As directed tizanidine 2 mg tablet 4 mg PO BID levothyroxine 200 mcg tablet 200 mcg PO DAILY topiramate 100 mg tablet 100 mg PO DAILY zolpidem 5 mg tablet 5 mg PO BEDTIME PRN (Reason: Insomnia) Patient Comments: TK 1 T PO AT NIGHT PRF INSOMNIA baclofen 10 mg tablet 20 mg PO BID PRN (Reason: Pain (Scale Score 1-3)) insulin aspart U-100 100 unit/mL (3 mL) insulin pen See Rx Instructions .ROUTE .COMPLEX Patient Comments: ADM 30 UNI SC TID WC Rx Instructions: has insulin pump. takes 1 unit of insulin per every 2 carbs. ibuprofen 800 mg tablet 600 mg PO Q8H PRN (Reason: pain) trazodone 50 mg Tablet 50 mg PO BEDTIME Rx Instructions: take one to two tablets at bed time up to 100mg by mouth potassium chloride 10 mEq Tablet Extended Release 30 meq PO DAILY leflunomide 20 mg Tablet 20 mg PO DAILY montelukast 10 mg Tablet 10 mg PO DAILY triamterene-hydrochlorothiazid 75-50 mg Tablet 1 tab PO DAILY meclizine 12.5 mg Tablet 12.5 mg PO Q6HR PRN (Reason: Vertigo) Qty: 20 0RF promethazine 25 mg Tablet 12.5 mg PO Q6HR PRN (Reason: NAUSEA/VOMITING) Qty: 20 0RF losartan 25 mg Tablet 25 mg PO DAILY Qty: 30 0RF oxycodone 5 mg Tablet 5 mg PO Q4HR PRN (Reason: Pain, Severe (7-10)) Qty: 10 0RF azithromycin 250 mg tablet See Rx Instructions PO .COMPLEX Qty: 6 0RF Rx Instructions: For 250 mg dose pack: take 500 mg today (day 1), then 250 mg for 4 days (days 2-5) hydrocodone-acetaminophen 5-325 mg tablet 1 tab PO Q6H PRN (Reason: pain) Qty: 10 0RF Gvoke HypoPen 2-Pack 1 mg/0.2 mL auto-injector 1 mg SUBCUT ONCE Rx Instructions: as a single dose; may repeat once after 15 minutes if no response Mounjaro 2.5 mg/0.5 mL pen injector 2.5 mg SUBCUT QWEEK Veozah 45 mg tablet 45 mg PO DAILY furosemide [Lasix] 20 mg tablet 20 mg PO Q OTHER DAY doxycycline hyclate 100 mg capsule 100 mg PO BID Referrals: Miscellaneous,Doctor, MD [Primary Care Provider] - Stand Alone Forms: Patient Portal/API ED Sign-out <Vesna Dewey DO - Last Filed: 12/20/23 05:25> Cosign ED Attending Cosignature Attestation: I was immediately available in the department for consultation.
[2023-12-15] MEDS: ONDANSETRON 4 MG ODT SL (18:11)
== END 2023-12-15 18:25 | disposition home or self-care (01) ==
PROVIDERS: Emergency Medicine; Emergency Provider Physician Assistant
DX: R11.2 Nausea with vomiting, unspecified (principal); R19.7 Diarrhea, unspecified; E11.9 Type 2 diabetes mellitus without complications; Z79.899 Other long term (current) drug therapy
CPT/HCPCS: 80053; 81003; 81025; 83690; 84484; 85025; 93005; 93010; 99283; 99284

== ENCOUNTER 2024-01-06 22:37 | Emergency (ER) | payer MEDICARE, OTHER, SELFPAY ==
[2023-01-17 15:03] VITALS: BMI 45.2
[2024-01-06 22:56] VITALS: BP 129/58; PULSE 81; RESP 18; TEMP 36.3; O2SAT 96; BMI 47.2
--- NOTE | 2024-01-06 23:03 | DI.RAD.S_ITS ---
PROCEDURE: XR KNEE LT 1TO2V INDICATIONS: fall, pain TECHNIQUE: 3 views of the knee were acquired. COMPARISON: None. FINDINGS: Bones: Minimally displaced proximal fibular head fracture. Soft tissues: No joint effusion. No suspicious soft tissue calcifications. IMPRESSION: Minimally displaced proximal fibular head fracture. Dictated by: Maria Guadalupe Solis M.D. on 01/06/2024 at 23:35 Approved by: Maria Guadalupe Solis M.D. on 01/06/2024 at 23:35
--- NOTE | 2024-01-06 23:03 | DI.RAD.S_ITS ---
PROCEDURE: XR HIP W PEL IF DONE LT 2V INDICATIONS: fall, pain TECHNIQUE: AP pelvis with lateral view(s) of the left hip(s). COMPARISON: None. FINDINGS: Bones: No fractures or dislocations. Pelvic ring appears intact. No suspicious bony lesions. Soft tissues: The visualized bowel gas pattern is normal. No suspicious soft tissue calcifications. IMPRESSION: No visualized acute fracture or dislocation. However, if clinical concern and/or pain persist, short interval imaging followup in 7-10 days is recommended, as occult injury cannot be definitively excluded. Dictated by: Maria Guadalupe Solis M.D. on 01/06/2024 at 23:35 Approved by: Maria Guadalupe Solis M.D. on 01/06/2024 at 23:36
--- NOTE | 2024-01-06 23:03 | DI.RAD.S_ITS ---
PROCEDURE: XR ANKLE LT MIN 3V INDICATIONS: fall, pain TECHNIQUE: 3 views of the ankle were acquired. COMPARISON: None. FINDINGS: Bones: No fractures or dislocations. Ankle mortise is normally aligned. No suspicious bony lesions. Soft tissues: No tibiotalar joint effusion. Achilles tendon appears normal. IMPRESSION: No visualized acute fracture or dislocation. However, if clinical concern and/or pain persist, short interval imaging followup in 7-10 days is recommended, as occult injury cannot be definitively excluded. Dictated by: Maria Guadalupe Solis M.D. on 01/06/2024 at 23:34 Approved by: Maria Guadalupe Solis M.D. on 01/06/2024 at 23:34
[2024-01-06 23:26] VITALS: BP 125/59; PULSE 82; O2SAT 97
[2024-01-06 23:30] VITALS: BP 123/63; PULSE 82; O2SAT 93
[2024-01-07] VITALS (32 sets, daily range): BP systolic 115–144; BP diastolic 59–67; PULSE 77–93; RESP 18; O2SAT 90–97
[2024-01-07] MEDS: MORPHINE 4 MG/ML INJ IV (01:12)
[2024-01-07] MEDS: ONDANSETRON 4 MG/2 ML INJ IV (01:12)
--- NOTE | 2024-01-07 01:12 | ED_ITS ---
HPI - Fall <Román Hodgson MD - Last Filed: 01/07/24 19:30> General Chief Complaint: Fall Stated Complaint: glf Time Seen by Provider: 01/07/24 00:20 Source: patient and EMS Mode of arrival: EMS History of Present Illness HPI Narrative: 48-year-old female with histyory of chronic hypoxia on 2-lpm nasal [place]ula home oxygen, had ground level fall earlier this evening, felt that her left leg wrapped up toward her face, complained of severe knee pain area, unclear if she had any sensation of left knee dislocation or relocation, prior patella surgery on that side noted. Complained of pain also to her left wrist, left ankle. She did not strike her head, does not believe she lost consciousness. She has no pain to her neck back chest abdomen. Denies use of blood thinner medications. Medical history is notable for disabled, typically uses a walker or mechanical wheelchair, diabetes with gastroparesis, multiple sclerosis, fibromyalgia, sleep apnea, chronic pain syndrome, Sjogren's syndrome, Raynaud's phenomena, hypothyroidism. She does have established specialty care with Neurology, Endocrinology, Cardiology, Gastroenterology, pulmonology and Rheumatology Related Data Home Medications Medication Instructions Recorded Confirmed levothyroxine 200 mcg tablet 200 mcg PO DAILY 02/07/18 09/07/23 topiramate 100 mg tablet 100 mg PO DAILY 02/07/18 09/07/23 zolpidem 5 mg tablet 5 mg PO BEDTIME PRN Insomnia 02/07/18 09/07/23 insulin aspart U-100 100 unit/mL See Rx Instructions .Route .COMPLEX 08/20/18 09/07/23 (3 mL) subcutaneous pen ibuprofen 800 mg tablet 600 mg PO Q8H PRN pain 08/14/19 09/07/23 trazodone 50 mg tablet 50 mg PO BEDTIME 08/14/19 09/07/23 potassium chloride 10 mEq 30 meq PO DAILY 11/18/19 09/07/23 tablet,extended release leflunomide 20 mg tablet 20 mg PO DAILY 08/03/21 09/07/23 montelukast 10 mg tablet 10 mg PO DAILY 08/03/21 09/07/23 triamterene 75 1 tab PO DAILY 08/03/21 09/07/23 mg-hydrochlorothiazide 50 mg tablet furosemide 20 mg tablet (Lasix) 20 mg PO Q OTHER DAY 01/17/23 09/07/23 doxycycline hyclate 100 mg capsule 100 mg PO BID 02/16/23 09/07/23 albuterol sulfate 2.5 mg/3 mL mg inhalation 07/10/23 09/07/23 (0.083 %) solution for nebulization alprazolam 0.25 mg tablet 0.25 mg PO DAILY 07/10/23 09/07/23 alprazolam 0.5 mg tablet 0.5 mg PO DAILY 07/10/23 09/07/23 amitriptyline 10 mg tablet 10 mg PO ONCE PM 07/10/23 09/07/23 amlodipine 10 mg tablet 10 mg PO DAILY 07/10/23 09/07/23 atorvastatin 20 mg tablet (Lipitor) 20 mg PO BEDTIME 07/10/23 09/07/23 baclofen 10 mg tablet 20 mg PO BID PRN Pain (Scale Score 07/10/23 09/07/23 1-3) blood-glucose sensor ([employer] G6 #1 ea 07/10/23 09/07/23 Sensor device) clindamycin phosphate 1 % lotion 1 applic topical BID 07/10/23 09/07/23 clindamycin phosphate 1 % topical topical 07/10/23 09/07/23 solution clobetasol 0.05 % shampoo 1 applic topical 07/10/23 09/07/23 clobetasol 0.05 % topical ointment topical 07/10/23 09/07/23 cyanocobalamin (vitamin B-12) 1,000 mcg IM MONTHLY 07/10/23 09/07/23 1,000 mcg/mL injection solution dexamethasone 1 mg tablet 1 mg PO ONCE 07/10/23 09/07/23 diazepam 5 mg tablet 5 mg PO DAILY PRN 07/10/23 09/07/23 ergocalciferol (vitamin D2) 1,250 1,250 mcg PO 07/10/23 09/07/23 mcg (50,000 unit) capsule erythromycin 5 mg/gram (0.5 %) eye EYE-BOTH 07/10/23 09/07/23 ointment estradiol 0.05 mg/24 hr semiweekly 1 patch transdermal 2XW 07/10/23 09/07/23 transdermal patch fluconazole 150 mg tablet mg PO 07/10/23 09/07/23 gabapentin 100 mg capsule mg PO 07/10/23 09/07/23 insulin lispro 200 unit/mL (3 mL) SUBCUT 07/10/23 09/07/23 subcutaneous pen (Humalog KwikPen U-200 Insulin) ketoconazole 2 % topical cream applic topical 07/10/23 09/07/23 leflunomide 10 mg tablet 10 mg PO DAILY 07/10/23 09/07/23 levothyroxine 25 mcg tablet 25 mcg PO DAILY 07/10/23 09/07/23 methylprednisolone 4 mg tablets in 0 mg PO 07/10/23 09/07/23 a dose pack metoprolol succinate 25 mg 25 mg PO DAILY 07/10/23 09/07/23 tablet,extended release 24 hr ofloxacin 0.3 % ear drops drp otic (ear) DAILY 07/10/23 09/07/23 omeprazole 40 mg capsule,delayed 40 mg PO DAILY 07/10/23 09/07/23 release ondansetron 4 mg disintegrating 4 mg PO Q8H PRN 07/10/23 09/07/23 tablet oxcarbazepine 300 mg tablet 300 mg PO BID 07/10/23 09/07/23 potassium chloride 10 mEq 10 meq PO DAILY 07/10/23 09/07/23 tablet,extended release(part/cryst) sodium sul 1.479 gram-potas ch 12 tab PO DIRECTED 07/10/23 09/07/23 0.188 gram-magnes sul 0.225 gram tablet (Sutab) sodium,potassium,mag sulfates 17.5 PO 07/10/23 09/07/23 gram-3.13 gram-1.6 gram oral soln fezolinetant 45 mg tablet (Veozah) 45 mg PO DAILY 09/07/23 09/07/23 glucagon 1 mg/0.2 mL subcutaneous 1 mg SUBCUT ONCE 09/07/23 09/07/23 auto-injector (Alondra Peterson 2-Pack) tirzepatide 2.5 mg/0.5 mL 2.5 mg SUBCUT QWEEK 09/07/23 09/07/23 subcutaneous pen injector (Juanita) tizanidine 2 mg tablet 4 mg PO BID 09/07/23 09/07/23 Previous Rx's Medication Instructions Recorded losartan 25 mg tablet 25 mg PO DAILY #30 tabs 08/04/21 meclizine 12.5 mg tablet 12.5 mg PO Q6HR PRN Vertigo #20 08/04/21 tabs oxycodone 5 mg tablet 5 mg PO Q4HR PRN Pain, Severe 08/04/21 (7-10) #10 tabs promethazine 25 mg tablet 12.5 mg (1/2 x 25 mg) PO Q6HR PRN 08/04/21 NAUSEA/VOMITING #20 tabs azithromycin 250 mg tablet See Rx Instructions PO .COMPLEX #6 09/14/23 tabs hydrocodone 5 mg-acetaminophen 325 1 tab PO Q6H PRN pain #10 tabs 09/14/23 mg tablet dicyclomine 20 mg tablet 20 mg PO TID PRN abdominal pain 12/15/23 #20 tabs ondansetron 8 mg disintegrating 8 mg PO Q8H PRN nausea and 12/15/23 tablet vomiting #20 tabs oxycodone 5 mg tablet 5 mg PO Q6H PRN pain #10 tabs 01/07/24 oxycodone 5 mg tablet 5 mg PO Q6H PRN pain #10 tabs 01/07/24 oxycodone-acetaminophen 5 mg-325 1 tab PO Q6H PRN pain #20 tabs 01/07/24 mg tablet Allergies Allergy/AdvReac Type Severity Reaction Status Date / Time codeine Allergy Severe Rash Verified 12/15/23 15:29 lovastatin [From Advicor] Allergy Severe Anaphylaxis Verified 12/15/23 15:29 niacin [From Advicor] Allergy Severe Anaphylaxis Verified 12/15/23 15:29 pseudoephedrine Allergy Severe Anaphylaxis Verified 12/15/23 15:29 red (food color) Allergy Severe Anaphylaxis Verified 12/15/23 15:29 mushroom Allergy Unknown Verified 12/15/23 15:29 ampicillin Allergy Rash Verified 12/15/23 15:29 barium iodide Allergy Verified 12/15/23 15:29 erythromycin base Allergy Verified 12/15/23 15:29 glatiramer (copolymer 1) Allergy Verified 12/15/23 15:29 interferon beta-1a Allergy itching Verified 12/15/23 15:29 and rash Iodinated Contrast Media Allergy Verified 12/15/23 15:29 lisinopril Allergy Kidneys Verified 12/15/23 15:29 shut down metformin Allergy Gastrointestinal Verified 12/15/23 15:29 Upset Sulfa (Sulfonamide Allergy Verified 12/15/23 15:29 Antibiotics) Penicillins AdvReac Mild Gi Verified 12/15/23 15:29 intolerance artificial sweetners Allergy Uncoded 07/10/23 14:44 <Julieth Maya MD - Last Filed: 01/07/24 13:42> History of Present Illness HPI Narrative: 48-year-old female had ground level fall earlier this evening, felt that her left leg wrapped up toward her face, complained of severe knee pain area, unclear if she had any sensation of dislocation or relocation, prior patella surgery on that side noted. Complained of pain also to her left wrist, left ankle. She did not strike her head, does not believe she lost consciousness. She has no pain to her neck back chest abdomen, BMI of 47 Medical history is notable for disabled, typically uses a walker or mechanical wheelchair, diabetes with gastroparesis, multiple sclerosis, fibromyalgia, sleep apnea, chronic pain syndrome, Sjogren's syndrome, Raynaud's phenomena, hypothyroidism. She does have established specialty care with Neurology, Endocrinology, Cardiology, Gastroenterology, pulmonology and Rheumatology Review of Systems <Román Hodgson MD - Last Filed: 01/07/24 19:30> Review of Systems Narrative: see HPI Patient History <Román Hodgson MD - Last Filed: 01/07/24 19:30> Medical History Psoriasis Eczema Acne Sleep apnea COPD (chronic obstructive pulmonary disease) Asthma Allergies Depression Anxiety Migraines Headache Shoulder pain Osteoporosis Osteopenia Foot pain Chronic back pain Chicken pox Vertigo Ruptured tympanic membrane (~1977) Recurrent sinusitis History of recurrent ear infection Hearing loss Cataracts, bilateral Painful menstrual periods Ovarian cyst Irregular menstrual cycle Heavy menstrual period Fibroids Endometriosis Kidney stones Irritable bowel syndrome GERD (gastroesophageal reflux disease) Gastroparesis Hypertension Dislocation of left patella Fatigue Hypothyroidism Raynauds disease Hyperlipidemia PCOS (polycystic ovarian syndrome) History of shingles Osteoarthritis Obstructive sleep apnea syndrome Diabetic gastroparesis Type 2 diabetes mellitus Chronically low serum potassium Diabetes Low vitamin D level Fibromyalgia Multiple sclerosis Surgical History Anesthesia History of partial hysterectomy (~2016) Hx of cholecystectomy History of repair of anterior cruciate ligament of right knee Family History Family/Other Loud snoring Sleep apnea Depression Dementia Father Loud snoring Sleep apnea Insomnia Restless legs syndrome Obesity Hypertension Heart disease Depression Bipolar disorder Hyperlipidemia Mental health problem Mother Insomnia Hypertension Depression Anxiety Eating disorder Eye disease Heart disease Hyperlipidemia Mental health problem Endometriosis Family/Other Loud snoring Obesity Hypertension Depression Anxiety Sister Eating disorder Heart disease Hypertension Hyperlipidemia Mental health problem Grandfather Cancer Mental health problem Grandmother Alzheimer's disease Hypertension Mental health problem Grandfather Cancer Grandmother Mental health problem Family/Other Freya-Danlos disease Mental health problem H/O autistic disorder Social History marital status: household members: spouse and children Smoking Status: Never smoker alcohol intake: current Smoking Status: Never smoker alcohol intake frequency: holidays/special occasions only Substance Use Type: does not use Exam <Román Hodgson MD - Last Filed: 01/07/24 19:30> Narrative Exam Narrative: GENERAL: Well-developed patient, in mild distress. HEAD: Atraumatic. Normocephalic. EYES: Pupils equal round and reactive. Extraocular motions intact. No scleral icterus. No injection or drainage. ENT: Nose without bleeding, purulent drainage. Throat without erythema, tonsillar hypertrophy or exudate. Airway patent. NECK: Trachea midline. Non tender CARDIOVASCULAR: Regular rate and rhythm without murmurs, gallops, or rubs. RESPIRATORY: Clear to auscultation. Breath sounds equal bilaterally. No wheezes, rales, or rhonchi. GASTROINTESTINAL: Abdomen soft, non-tender, nondistended. EXTREMITIES: No gross deformities but some tenderness to medial and lateral joint line left knee. Particularly left proximal fibular region. No abrasions or lacerations. Some tenderness medial and lateral aspects of the left ankle with no gross deformity, good DP pulses. No mid thigh or hip tenderness. Good cap refill DP pulses. No gross lower limb length discrepancy. BACK: Nontender without deformity or crepitance. No flank tenderness. NEURO: AOx3. Motor functions grossly nonfocal SKIN: No rash or erythema of visible areas Initial Vital Signs Initial Vital Signs: Vital Signs Temperature 97.3 F L 01/06/24 22:56 Pulse Rate 81 01/06/24 22:56 Respiratory Rate 18 01/06/24 22:56 Blood Pressure 129/58 L 01/06/24 22:56 Pulse Oximetry 96 01/06/24 22:56 Oxygen Delivery Method Room Air 01/06/24 22:56 <Julieth Maya MD - Last Filed: 01/07/24 13:42> Initial Vital Signs Initial Vital Signs: Vital Signs Temperature 97.3 F L 01/06/24 22:56 Pulse Rate 81 01/06/24 22:56 Respiratory Rate 18 01/06/24 22:56 Blood Pressure 129/58 L 01/06/24 22:56 Pulse Oximetry 96 01/06/24 22:56 Oxygen Delivery Method Room Air 01/06/24 22:56 Course <Román Hodgson MD - Last Filed: 01/07/24 19:30> Orders Ordered: Discontinued Medications Hydrocodone Bitart/Acetaminophen (Hydrocodone/Acet 5/325 Tablet) 1 tab PO NOW ONE Stop: 01/07/24 01:14 Last Admin: 01/07/24 04:45 Dose: 1 tab Documented By: DENI Diphenhydramine HCl (Diphenhydramine 50 Mg/Ml Vial) 50 mg IV NOW ONE Stop: 01/07/24 01:34 Last Admin: 01/07/24 02:12 Dose: 50 mg Documented By: DENI Famotidine (Famotidine 20 Mg/2 Ml Vial) 20 mg IV NOW YULIANA Last Admin: 01/07/24 02:12 Dose: 20 mg Documented By: DENI Methylprednisolone (Methylprednisolone 125 Mg/2 Ml Vial) 125 mg IV NOW ONE Stop: 01/07/24 01:34 Last Admin: 01/07/24 02:12 Dose: 125 mg Documented By: DENI Morphine Sulfate (Morphine 4 Mg/Ml Inj) 4 mg IV NOW ONE Stop: 01/07/24 01:07 Last Admin: 01/07/24 01:12 Dose: 4 mg Documented By: DENI Ondansetron HCl (Ondansetron 4 Mg/2 Ml Inj) 4 mg IV NOW ONE Stop: 01/07/24 01:08 Last Admin: 01/07/24 01:12 Dose: 4 mg Documented By: DENI Oxycodone/Acetaminophen (Oxycodone/Apap 5/325 Prepack) 1 bottle MISC DIRECTED ONE Stop: 01/07/24 04:30 Last Admin: 01/07/24 04:45 Dose: 1 bottle Documented By: DENI Oxycodone/Acetaminophen (Oxycodone/Acetaminophen 5/325 Tablet) 1 tab PO NOW ONE Stop: 01/07/24 10:23 Last Admin: 01/07/24 10:36 Dose: 1 tab Documented By: ARACELI Polyethylene Glycol (Polyethylene Glycol 3350 17 Gm Powd.Pack) 17 gm PO NOW ONE Stop: 01/07/24 10:29 Last Admin: 01/07/24 10:36 Dose: 17 gm Documented By: ARACELI Vital Signs Vital signs: Vital Signs - 8 hr 01/07/24 11:30 01/07/24 12:00 01/07/24 12:30 Pulse Rate 82 92 H 86 Blood Pressure Pulse Oximetry 94 92 94 Oxygen Delivery Method Room Air Room Air 01/07/24 12:57 01/07/24 12:57 01/07/24 13:00 Pulse Rate 86 89 Blood Pressure 123/64 Pulse Oximetry 97 90 L Oxygen Delivery Method 01/07/24 13:05 01/07/24 14:23 01/07/24 14:24 Pulse Rate 93 H 93 H Blood Pressure 144/63 H Pulse Oximetry 95 92 Oxygen Delivery Method Room Air <Julieth Maya MD - Last Filed: 01/07/24 13:42> Orders Ordered: Discontinued Medications Hydrocodone Bitart/Acetaminophen (Hydrocodone/Acet 5/325 Tablet) 1 tab PO NOW ONE Stop: 01/07/24 01:14 Last Admin: 01/07/24 04:45 Dose: 1 tab Documented By: DENI Diphenhydramine HCl (Diphenhydramine 50 Mg/Ml Vial) 50 mg IV NOW ONE Stop: 01/07/24 01:34 Last Admin: 01/07/24 02:12 Dose: 50 mg Documented By: DENI Famotidine (Famotidine 20 Mg/2 Ml Vial) 20 mg IV NOW YULIANA Last Admin: 01/07/24 02:12 Dose: 20 mg Documented By: DENI Methylprednisolone (Methylprednisolone 125 Mg/2 Ml Vial) 125 mg IV NOW ONE Stop: 01/07/24 01:34 Last Admin: 01/07/24 02:12 Dose: 125 mg Documented By: DENI Morphine Sulfate (Morphine 4 Mg/Ml Inj) 4 mg IV NOW ONE Stop: 01/07/24 01:07 Last Admin: 01/07/24 01:12 Dose: 4 mg Documented By: DENI Ondansetron HCl (Ondansetron 4 Mg/2 Ml Inj) 4 mg IV NOW ONE Stop: 01/07/24 01:08 Last Admin: 01/07/24 01:12 Dose: 4 mg Documented By: DENI Oxycodone/Acetaminophen (Oxycodone/Apap 5/325 Prepack) 1 bottle MISC DIRECTED ONE Stop: 01/07/24 04:30 Last Admin: 01/07/24 04:45 Dose: 1 bottle Documented By: DENI Oxycodone/Acetaminophen (Oxycodone/Acetaminophen 5/325 Tablet) 1 tab PO NOW ONE Stop: 01/07/24 10:23 Last Admin: 01/07/24 10:36 Dose: 1 tab Documented By: ARACELI Polyethylene Glycol (Polyethylene Glycol 3350 17 Gm Powd.Pack) 17 gm PO NOW ONE Stop: 01/07/24 10:29 Last Admin: 01/07/24 10:36 Dose: 17 gm Documented By: ARACELI Vital Signs Vital signs: Vital Signs - 8 hr 01/07/24 11:30 01/07/24 12:00 01/07/24 12:30 Pulse Rate 82 92 H 86 Blood Pressure Pulse Oximetry 94 92 94 Oxygen Delivery Method Room Air Room Air 01/07/24 12:57 01/07/24 12:57 01/07/24 13:00 Pulse Rate 86 89 Blood Pressure 123/64 Pulse Oximetry 97 90 L Oxygen Delivery Method 01/07/24 13:05 01/07/24 14:23 01/07/24 14:24 Pulse Rate 93 H 93 H Blood Pressure 144/63 H Pulse Oximetry 95 92 Oxygen Delivery Method Room Air MDM - Fall <Román Hodgson MD - Last Filed: 01/07/24 19:30> Lab Data Attestation: I reviewed the patient's lab results. Lab results narrative: White blood cell count 52977, hemoglobin 11.7, platelets adequate. Basic metabolic panel normal, LFTs unremarkable. 01/07/24 02:25 01/07/24 02:25 Labs: Lab Results 01/07/24 Range/Units 02:25 WBC 11.0 (4.5-11.0) X10^3/uL RBC 4.30 (4.0-5.2) X10^6/uL Hgb 11.7 L (12.0-16.0) g/dL Hct 35.9 L (36-46) % MCV 83.5 (80-100) fL MCH 27.2 (26-34) PG MCHC 32.5 (30-36) % RDW 16.7 H (11.6-14.8) % Plt Count 295 (150-400) X10^3/uL Neut % (Auto) 67.3 (50-75) % Lymph % (Auto) 25.2 (25-40) % Swift % (Auto) 5.6 (3-14) % Eos % (Auto) 1.0 L (2-4) % Baso % (Auto) 0.9 (0-2) % Neut # (Auto) 7400 H (4132-1388) /uL Lymph # (Auto) 2800 (0890-5696) /uL Swift # (Auto) 600 (0-900) /uL Eos # (Auto) 100 (0-450) /uL Baso # (Auto) 100 (0-100) /uL Sodium 138 (137-145) mmol/L Potassium 3.8 (3.4-5.1) mmol/L Chloride 105 (98-107) mmol/L Carbon Dioxide 27 (22-32) mmol/L BUN 14 (7-17) mg/dL Creatinine 0.76 (0.52-1.04) mg/dL Estimated GFR > 60 (>60) mL/min BUN/Creatinine Ratio 18.4 (6-22) Glucose 89 (70-100) mg/dL Calcium 8.9 (8.4-10.2) mg/dL Point of Care Testing Glucose POC 184 Imaging Data Extremity x-ray #1: Radiologist's Impression: [address] [address] XRay Report Signed Patient: Josie Silvestre MR#: [id number] : 1975 Acct:[id number] Age/Sex: 48 / F Date of Service: 01/06/24 Loc: ED Accession Number: [id number] Procedure: XR knee LT 3V Ordering Provider: Román Hodgson MD PROCEDURE: XR KNEE LT 1TO2V INDICATIONS: fall, pain TECHNIQUE: 3 views of the knee were acquired. COMPARISON: None. FINDINGS: Bones: Minimally displaced proximal fibular head fracture. Soft tissues: No joint effusion. No suspicious soft tissue calcifications. IMPRESSION: Minimally displaced proximal fibular head fracture. Dictated by: Maria Guadalupe Solis M.D. on 01/06/2024 at 23:35 Approved by: Maria Guadalupe Solis M.D. on 01/06/2024 at 23:35 Extremity x-ray #2: Radiologist's Impression: [address] [address] XRay Report Signed Patient: Josie Silvestre MR#: [id number] : 1975 Acct:[id number] Age/Sex: 48 / F Date of Service: 01/06/24 Loc: ED Accession Number: [id number] Procedure: XR hip w pel if done LT 2V Ordering Provider: Román Hodgson MD PROCEDURE: XR HIP W PEL IF DONE LT 2V INDICATIONS: fall, pain TECHNIQUE: AP pelvis with lateral view(s) of the left hip(s). COMPARISON: None. FINDINGS: Bones: No fractures or dislocations. Pelvic ring appears intact. No suspicious bony lesions. Soft tissues: The visualized bowel gas pattern is normal. No suspicious soft tissue calcifications. IMPRESSION: No visualized acute fracture or dislocation. However, if clinical concern and/or pain persist, short interval imaging followup in 7-10 days is recommended, as occult injury cannot be definitively excluded. Dictated by: Maria Guadalupe Solis M.D. on 01/06/2024 at 23:35 Approved by: Maria Guadalupe Solis M.D. on 01/06/2024 at 23:36 Extremity x-ray #3: Radiologist's Impression: [address] [address] XRay Report Signed Patient: Josie Silvestre MR#: [id number] : 1975 Acct:[id number] Age/Sex: 48 / F Date of Service: 01/06/24 Loc: ED Accession Number: [id number] Procedure: XR ankle LT min 3V Ordering Provider: Román Hodgson MD PROCEDURE: XR ANKLE LT MIN 3V INDICATIONS: fall, pain TECHNIQUE: 3 views of the ankle were acquired. COMPARISON: None. FINDINGS: Bones: No fractures or dislocations. Ankle mortise is normally aligned. No suspicious bony lesions. Soft tissues: No tibiotalar joint effusion. Achilles tendon appears normal. IMPRESSION: No visualized acute fracture or dislocation. However, if clinical concern and/or pain persist, short interval imaging followup in 7-10 days is recommended, as occult injury cannot be definitively excluded. Dictated by: Maria Guadalupe Solis M.D. on 01/06/2024 at 23:34 Approved by: Maria Guadalupe Solis M.D. on 01/06/2024 at 23:34 Left wrist x-ray: Radiologist's Impression: [address] [address] XRay Report Signed Patient: Josie Silvestre MR#: [id number] : 1975 Acct:[id number] Age/Sex: 48 / F Date of Service: 01/07/24 Loc: ED Accession Number: [id number] Procedure: XR wrist LT min 3V Ordering Provider: Román Hodgson MD PROCEDURE: XR WRIST LT MIN 3V INDICATIONS: fall, pain TECHNIQUE: 4 views of the wrist were acquired. COMPARISON: None. FINDINGS: Bones: No fractures or dislocations. No suspicious bony lesions. Soft tissues: No suspicious soft tissue calcifications. IMPRESSION: No visualized acute fracture or dislocation. However, if clinical concern and/or pain persist, short interval imaging followup in 7-10 days is recommended, as occult injury cannot be definitively excluded. Dictated by: Maria Guadalupe Solis M.D. on 01/07/2024 at 1:40 Approved by: Maria Guadalupe Solis M.D. on 01/07/2024 at 1:[address] [facility] Narrative Medical decision making narrative: Ground level fall with rotation left leg, and displacement of toward her head, unclear if she aches describing any dislocation/relocation of her knee, versus other popping pain sensation, but complains of knee pain on the left side, as well as pain to her left ankle and left wrist. No gross deformities or limb length discrepancy, good left DP pulse, has warm foot/toes. X-ray left knee shows minimally displaced proximal fibular head fracture. See radiology report X-ray left hip no fracture dislocation, see radiology report. X-ray left ankle, no fracture or dislocation in visualized rodriguez, see radiology report Patient concern leg was wrapped up toward her leg, concerned about dislocation relocation, good DP pulse. Also obesity with proximal fibula fracture, consider occult tibia fracture. We will obtain CTA left lower extremity for evaluation of popliteal and other vascular structures, as to further evaluate tibial plateau. Patient has history of allergy to contrast, itching, facial swelling, however she has tolerated IV contrast with premedication in the past. We will premedicate with IV steroids and antihistamines, ordered. Patient willing to proceed with CTA angio study after premedication. Labs drawn, GFR favorable, premedication IV steroid antihistamine, proceed with CT angio 031, patient returned from angio, so far has no adverse effect from contrast. Await results. CTA abdomen and pelvis with runoff extremity. Impressions: ?No abdominal aortic aneurysm or dissection. No vascular injury to the lower extremities. Incomplete filling/opacification of the popliteal veins probably technical in nature. Doppler could exclude any thrombus. There is subcutaneous edema in both calf regions. Right suprapatellar joint effusion.? See teleradiology report. In bony section there is no tibial plateau fracture suspected. No arterial vascular problems identified. Patient to be splinted in long leg left posterior splint to go above knee level given effusion and proximal fibular fracture change. Unclear she can use crutches, might need walker. Home pack oxycodone/APAP, she usually does not take extra Tylenol. We will send prescription for oxycodone to her pharmacy. Follow up Orthopedic surgery advised, contact information clinic given for Dr. Barnhart office 0530, Patient was unable to participate with walker trial after long leg splinting. Might need home assistant teacher versus longterm placement. Chronic home oxygen noted. PT consult, social services counselor consult, when available later today. 0700, consult requested for [facility]/PT/OT. Had a failed trial of walker. Might need home assistant teacher versus longterm placement. Signed out to Dr Maya Patient is seen and independently evaluated. Imaging studies are all reviewed. She currently is in a left leg posterior splint which is helping with the pain control. She was evaluated by Physical therapy. She is able to stand and pivot with her walker however she is not able to take any steps with her walker Reviewed her home situation, she has a ramp and on the electric wheelchair however she does not feel that she could get into the electric wheelchair or safely get out of it she also notes that the wheelchair is not able to be used inside the house, she would not have access to bedrooms or bathrooms. Additionally, she is concerned that she does not have enough upper body strength to move the walker forward and hold herself up Consultation with Dr. Barnhart. This is a stable proximal fibular fracture and she can weight bear as tolerated. In terms of immobilization if the posterior splint helps with comfort it can be used for the next 4-5 days. An alternative suggestion was a walking boot. Pain at the proximal fibula is going to be exacerbated by ankle twisting and instability so she may feel more confident in a walking boot as a comfort and stabilizing measure. He will see her as an outpatient 9am Patient is again re-evaluated, discussed options. She is absolutely certain that she will not be able to manage at home today with walker. She did find working with physical therapist this morning quite helpful. She would prefer hospital admission for safety and pain control today. She would like additional episode with physical therapy, feels at home physical therapy maybe helpful. She adamantly declines any consideration of jail facility. Will discuss with hospitalist 1215 patient is comfortable at this time. Hospitalist returns phone call, states that he did review the case with care management and despite her multiple chronic medical issues including multiple sclerosis and a fall that is led to a fracture that is caused her diminished mobility to be even further diminished she has not meeting any criteria for observation hospital care. She will fall under our social admit policies and if we are unable to find placement within 48 hours we can review with the hospitalist service again. Was seen by social work in the emergency department and explained the conundrum. We will see if we can arrange home health, she will call additional friends and see if she can get some further help at home. If patient is still unwilling/unable to leave the department will continue to care for her with physical therapy evaluation again tomorrow. Patient states she does have a primary care doctor, at [facility] who can continue follow through with home health and home physical therapy <Julieth Maya MD - Last Filed: 01/07/24 13:42> Lab Data Labs: Lab Results 10/27/24 Range/Units 02:25 WBC 11.0 (4.5-11.0) X10^3/uL RBC 4.30 (4.0-5.2) X10^6/uL Hgb 11.7 L (12.0-16.0) g/dL Hct 35.9 L (36-46) % MCV 83.5 (80-100) fL MCH 27.2 (26-34) PG MCHC 32.5 (30-36) % RDW 16.7 H (11.6-14.8) % Plt Count 295 (150-400) X10^3/uL Neut % (Auto) 67.3 (50-75) % Lymph % (Auto) 25.2 (25-40) % Swift % (Auto) 5.6 (3-14) % Eos % (Auto) 1.0 L (2-4) % Baso % (Auto) 0.9 (0-2) % Neut # (Auto) 7400 H (1553-7794) /uL Lymph # (Auto) 2800 (7926-7363) /uL Swift # (Auto) 600 (0-900) /uL Eos # (Auto) 100 (0-450) /uL Baso # (Auto) 100 (0-100) /uL Sodium 138 (137-145) mmol/L Potassium 3.8 (3.4-5.1) mmol/L Chloride 105 (98-107) mmol/L Carbon Dioxide 27 (22-32) mmol/L BUN 14 (7-17) mg/dL Creatinine 0.76 (0.52-1.04) mg/dL Estimated GFR > 60 (>60) mL/min BUN/Creatinine Ratio 18.4 (6-22) Glucose 89 (70-100) mg/dL Calcium 8.9 (8.4-10.2) mg/dL Point of Care Testing Glucose POC 184 MDM Narrative Medical decision making narrative: Ground level fall with rotation left leg, and displacement of toward her head, unclear if she aches describing any dislocation relocation of her knee, but complains of knee pain on the left side, as well as pain to her left ankle and left wrist. No gross deformities, good DP pulse. X-ray left knee shows minimally displaced proximal fibular head fracture. See radiology report X-ray left hip no fracture dislocation, see radiology report. X-ray left ankle, no fracture or dislocation in visualized rodriguez, see radiology report Patient concern leg was wrapped up toward her leg, concerned about dislocation relocation, good DP pulse. Also obesity with proximal fibula fracture, consider occult tibia fracture. We will obtain CTA left lower extremity for evaluation of popliteal and other vascular structures, as well as the knee structure tibial plateau region. Patient has history of allergy to contrast, itching, facial swelling, however she has tolerated IV contrast with premedication in the past. We will premedicate with IV steroids and antihistamines, ordered. Patient willing to proceed with CTA angio study after premedication. Labs drawn, GFR favorable, premedication IV steroid antihistamine, proceed with CT angio 031, patient returned from angio, so far has no adverse effect from contrast. Await results. CTA abdomen and pelvis with runoff extremity. Impressions: ?No abdominal aortic aneurysm or dissection. No vascular injury to the lower extremities. Incomplete filling/opacification of the popliteal veins probably technical in nature. Doppler could exclude any thrombus. There is subcutaneous edema in both calf regions. Right suprapatellar joint effusion.? See teleradiology report. In bony section there is no tibial plateau fracture suspected. No arterial vascular problems identified. Patient to be splinted in long leg left posterior splint to go above knee level given effusion and proximal fibular fracture change. Unclear she can use crutches, might need walker. Home pack oxycodone/APAP, she usually does not take extra Tylenol. We will send prescription for oxycodone to her pharmacy. Follow up Orthopedic surgery advised, contact information clinic given for Dr. Barnhart office 0530, Patient was unable to participate with walker trial after long leg splinting. Might need home assistant teacher versus longterm placement. Chronic home oxygen noted. PT consult, social services counselor consult, when available later today. 0700, consult requested for [employer]/PT/OT. Had a failed trial of walker. Might need home assistant teacher versus longterm placement. Signed out to Dr Maya Patient is seen and independently evaluated. Imaging studies are all reviewed. She currently is in a left leg posterior splint which is helping with the pain control. She was evaluated by Physical therapy. She is able to stand and pivot with her walker however she is not able to take any steps with her walker Reviewed her home situation, she has a ramp and on the electric wheelchair however she does not feel that she could get into the electric wheelchair or safely get out of it she also notes that the wheelchair is not able to be used inside the house, she would not have access to bedrooms or bathrooms. Additionally, she is concerned that she does not have enough upper body strength to move the walker forward and hold herself up Consultation with Dr. Barnhart. This is a stable proximal fibular fracture and she can weight bear as tolerated. In terms of immobilization if the posterior splint helps with comfort it can be used for the next 4-5 days. An alternative suggestion was a walking boot. Pain at the proximal fibula is going to be exacerbated by ankle twisting and instability so she may feel more confident in a walking boot as a comfort and stabilizing measure. He will see her as an outpatient 9am Patient is again re-evaluated, discussed options. She is absolutely certain that she will not be able to manage at home today with walker. She did find working with physical therapist this morning quite helpful. She would prefer hospital admission for safety and pain control today. She would like additional episode with physical therapy, feels at home physical therapy maybe helpful. She adamantly declines any consideration of jail facility. Will discuss with hospitalist 1215 patient is comfortable at this time. Hospitalist returns phone call, states that he did review the case with care management and despite her multiple chronic medical issues including multiple sclerosis and a fall that is led to a fracture that is caused her diminished mobility to be even further diminished she has not meeting any criteria for observation hospital care. She will fall under our social admit policies and if we are unable to find placement within 48 hours we can review with the hospitalist service again. Was seen by social work in the emergency department and explained the conundrum. We will see if we can arrange home health, she will call additional friends and see if she can get some further help at home. If patient is still unwilling/unable to leave the department will continue to care for her with physical therapy evaluation again tomorrow. Patient states she does have a primary care doctor, at [facility] who can continue follow through with home health and home physical therapy Discharge Plan Departure Patient Disposition: Home Clinical Impression: Fall with injury, Closed left fibular fracture, Sprain and strain of left wrist, Left ankle strain, Effusion of left knee, Multiple sclerosis, Type 2 diabetes mellitus, Obstructive sleep apnea syndrome, Morbid obesity with BMI of 40.0-44.9, adult Activity Restrictions/Additional Instructions: Thank you for coming in today With your fall, you broke the upper part of your fibula. There does not appear to be acute knee injuries, blood vessel problems or ankle fractures. Keeping the splint on we will help with comfort in mobilizing the fracture. It is okay to gently placed weight on the fracture. It is stable. You will need to follow up with [facility] please call them on Monday to schedule an appointment, the phone number is [phone] Please use your walker and wheelchair as you are able to do I did discuss her case with our orthopedic surgeon our hospitalist, our care management office and our social workers. Unfortunately despite the pain and difficulties in moving you do not meet any criteria for staying in the hospital. We have arranged for home health and home physical therapy I am going to give you a prescription for Percocet, this is Tylenol plus oxycodone. It is a narcotic has a potential for addiction and will cause constipation. Please take it with a stool softener Ice to the outer portion of your knee and elevating the leg can be helpful in controlling pain as well If you find that you are getting worse or develop any new symptoms, please feel free to return to the emergency department for further evaluation.. Prescriptions: New oxycodone 5 mg tablet 5 mg PO Q6H PRN (Reason: pain) Qty: 10 0RF oxycodone 5 mg tablet 5 mg PO Q6H PRN (Reason: pain) Qty: 10 0RF oxycodone-acetaminophen 5-325 mg tablet 1 tab PO Q6H PRN (Reason: pain) Qty: 20 0RF No Action atorvastatin [Lipitor] 20 mg tablet 20 mg PO BEDTIME amitriptyline 10 mg tablet 10 mg PO ONCE PM omeprazole 40 mg capsule,delayed release(DR/EC) 40 mg PO DAILY metoprolol succinate 25 mg tablet extended release 24 hr 25 mg PO DAILY ergocalciferol (vitamin D2) 1,250 mcg (50,000 unit) capsule 1,250 mcg PO Humalog KwikPen Insulin 200 unit/mL (3 mL) insulin pen SUBCUT Patient Comments: [NO ORIGINAL SIG] clindamycin phosphate 1 % solution topical estradiol 0.05 mg/24 hr patch semiweekly 1 patch transdermal 2XW methylprednisolone 4 mg tablets,dose pack 0 mg PO albuterol sulfate 2.5 mg /3 mL (0.083 %) solution for nebulization inhalation cyanocobalamin (vitamin B-12) 1,000 mcg/mL solution 1,000 mcg IM MONTHLY clobetasol 0.05 % ointment topical leflunomide 10 mg tablet 10 mg PO DAILY erythromycin 5 mg/gram (0.5 %) ointment EYE-BOTH Sutab 1.479-0.188- 0.225 gram tablet 12 tab PO DIRECTED ofloxacin 0.3 % drops otic (ear) DAILY potassium chloride 10 mEq tablet,ER particles/crystals 10 meq PO DAILY amlodipine 10 mg tablet 10 mg PO DAILY levothyroxine 25 mcg tablet 25 mcg PO DAILY sodium,potassium,mag sulfates 17.5-3.13-1.6 gram recon soln PO gabapentin 100 mg capsule PO diazepam 5 mg tablet 5 mg PO DAILY PRN alprazolam 0.25 mg tablet 0.25 mg PO DAILY alprazolam 0.5 mg tablet 0.5 mg PO DAILY ondansetron 4 mg tablet,disintegrating 4 mg PO Q8H PRN ketoconazole 2 % cream topical oxcarbazepine 300 mg tablet 300 mg PO BID dexamethasone 1 mg tablet 1 mg PO ONCE fluconazole 150 mg tablet PO clobetasol 0.05 % shampoo 1 applic topical clindamycin phosphate 1 % lotion 1 applic topical BID (DME) Dexcom G6 Sensor Device See Rx Instructions .ROUTE Q10D Qty: 1 Rx Instructions: As directed tizanidine 2 mg tablet 4 mg PO BID levothyroxine 200 mcg tablet 200 mcg PO DAILY topiramate 100 mg tablet 100 mg PO DAILY zolpidem 5 mg tablet 5 mg PO BEDTIME PRN (Reason: Insomnia) Patient Comments: TK 1 T PO AT NIGHT PRF INSOMNIA baclofen 10 mg tablet 20 mg PO BID PRN (Reason: Pain (Scale Score 1-3)) insulin aspart U-100 100 unit/mL (3 mL) insulin pen See Rx Instructions .ROUTE .COMPLEX Patient Comments: ADM 30 UNI SC TID WC Rx Instructions: has insulin pump. takes 1 unit of insulin per every 2 carbs. ibuprofen 800 mg tablet 600 mg PO Q8H PRN (Reason: pain) trazodone 50 mg Tablet 50 mg PO BEDTIME Rx Instructions: take one to two tablets at bed time up to 100mg by mouth potassium chloride 10 mEq Tablet Extended Release 30 meq PO DAILY leflunomide 20 mg Tablet 20 mg PO DAILY montelukast 10 mg Tablet 10 mg PO DAILY triamterene-hydrochlorothiazid 75-50 mg Tablet 1 tab PO DAILY meclizine 12.5 mg Tablet 12.5 mg PO Q6HR PRN (Reason: Vertigo) Qty: 20 0RF promethazine 25 mg Tablet 12.5 mg PO Q6HR PRN (Reason: NAUSEA/VOMITING) Qty: 20 0RF losartan 25 mg Tablet 25 mg PO DAILY Qty: 30 0RF oxycodone 5 mg Tablet 5 mg PO Q4HR PRN (Reason: Pain, Severe (7-10)) Qty: 10 0RF azithromycin 250 mg tablet See Rx Instructions PO .COMPLEX Qty: 6 0RF Rx Instructions: For 250 mg dose pack: take 500 mg today (day 1), then 250 mg for 4 days (days 2-5) hydrocodone-acetaminophen 5-325 mg tablet 1 tab PO Q6H PRN (Reason: pain) Qty: 10 0RF ondansetron 8 mg tablet,disintegrating 8 mg PO Q8H PRN (Reason: nausea and vomiting) Qty: 20 0RF dicyclomine 20 mg tablet 20 mg PO TID PRN (Reason: abdominal pain) Qty: 20 0RF Gvoke HypoPen 2-Pack 1 mg/0.2 mL auto-injector 1 mg SUBCUT ONCE Rx Instructions: as a single dose; may repeat once after 15 minutes if no response Mounjaro 2.5 mg/0.5 mL pen injector 2.5 mg SUBCUT QWEEK Veozah 45 mg tablet 45 mg PO DAILY furosemide [Lasix] 20 mg tablet 20 mg PO Q OTHER DAY doxycycline hyclate 100 mg capsule 100 mg PO BID Referrals: Miscellaneous,DoctorMD [Non-Staff] - Bhargav Barnhart MD [Physician] - Stand Alone Forms: Patient Portal/API
--- NOTE | 2024-01-07 01:20 | DI.RAD.S_ITS ---
PROCEDURE: XR WRIST LT MIN 3V INDICATIONS: fall, pain TECHNIQUE: 4 views of the wrist were acquired. COMPARISON: None. FINDINGS: Bones: No fractures or dislocations. No suspicious bony lesions. Soft tissues: No suspicious soft tissue calcifications. IMPRESSION: No visualized acute fracture or dislocation. However, if clinical concern and/or pain persist, short interval imaging followup in 7-10 days is recommended, as occult injury cannot be definitively excluded. Dictated by: Maria Guadalupe Solis M.D. on 01/07/2024 at 1:40 Approved by: Maria Guadalupe Solis M.D. on 01/07/2024 at 1:41
--- NOTE | 2024-01-07 01:20 | PC.NURSE ---
Pt c/o severe pain to L leg and wrist, asking repeatedly asking for pain med. Dr Hodgson notified, verbal orders received to repeat field dose of 4mg morphine. Pt also c/ pain to L wrist and asking for XR; ordered per protocol.
--- NOTE | 2024-01-07 01:29 | DI.CT.S_ITS ---
PROCEDURE: CT ANGIO ABD AORTA RUNOFF INDICATIONS: left knee pain, ?disloc/reloc, eval popliteal art knee TECHNIQUE: After the administration of intravenous contrast, 2.5 mm sections acquired from T12 to the feet, with optional delayed image acquisition from the knees to the feet. 3-dimensional maximum intensity projection (MIP) coronal and sagittal reformats, and/or 3-dimensional volume rendering reformatting was then performed. For radiation dose reduction, the following was used: automated exposure control. COMPARISON: [facility], CR, XR KNEE LT 1TO2V, 01/06/2024, 23:02. [facility], CT, CT ABDOMEN PELVIS WITHOUT CONTRAST, 04/11/2023, 17:56. FINDINGS: Image Quality: Diagnostic. Abdominal aorta: Normal. Splanchnic vessels: Normal. No stenosis. Single, normal appearing renal arteries are seen. Right lower extremity: Normal. Triple vessel runoff. Left lower extremity: Normal. No popliteal artery injury or aneurysm is seen. There is triple vessel runoff. Lower Chest: No significant findings. ABDOMEN: Liver: No solid mass. The liver is enlarged and fatty infiltrated. Gallbladder: Removed. Biliary ducts: No biliary dilation. Pancreas: No ductal dilation. Spleen: Size is within normal limits. Adrenal Glands: No adrenal nodules. Kidneys and Ureters: No hydronephrosis. No solid mass. No complex renal cystic lesion which requires follow up. Stomach and Bowel: Normal colonic caliber, without significant wall thickening. No dilated loops of small bowel are seen. Peritoneum: No abnormal intraperitoneal fluid. No free air. Ventral Wall: No hernia. Generalized inflammatory change can be seen of the pannus, without abscess. Abdominal Nodes: No retroperitoneal or mesenteric adenopathy by size criteria. Vessels: Aorta and inferior vena cava are normal in size. PELVIS: Pelvic Organs: No adnexal masses are seen on either side. Bladder: Unremarkable. Pelvic Nodes: No enlarged lymph nodes. Miscellaneous: No inguinal hernias are seen. Bones: No aggressive osseous abnormality. Scrutiny is given to the region of the left knee. There is a minimally displaced fibular neck fracture present, with surrounding soft tissue swelling. Premature degenerative change is seen of the left knee. There is a moderate joint effusion, without lipohemarthrosis seen. IMPRESSION: Minimally displaced left fibular neck fracture. No popliteal artery injury or aneurysm is seen. Moderate left knee joint effusion, without lipohemarthrosis. No significant arterial abnormality is seen. Additional findings: Enlarged, fatty infiltrated liver Cholecystectomy Generalized inflammatory change of the pannus Note: No significant discrepancy from the preliminary report. (The fibular neck fracture described on the current report is a known fracture, previously demonstrated by plain film.) Dictated by: Tim Rodriguez M.D. on 01/07/2024 at 8:16 Approved by: Tim Rodriguez M.D. on 01/07/2024 at 8:24
[2024-01-07] MEDS: methylPREDNISolone 125 MG/2 ML VIAL IV (02:12)
[2024-01-07] MEDS: diphenhydrAMINE 50 MG/ML VIAL IV (02:12)
[2024-01-07] MEDS: FAMOTIDINE 20 MG/2 ML VIAL IV (02:12)
[2024-01-07 02:38] LABS: Add Manual Diff / Slide Review NO; Basophils Absolute Auto 100 /uL (0-100); Basophils Percent Auto 0.9 % (0-2); Eosinophils Absolute Auto 100 /uL (0-450); Hematocrit 35.9 % (36-46); Hemoglobin 11.7 g/dL (12.0-16.0); Lymphocytes Absolute Auto 2800 /uL (1100-4500); Lymphocytes Percent Auto 25.2 % (25-40); Mean Corpuscular HGB Conc 32.5 % (30-36); Mean Corpuscular Hemoglobin 27.2 PG (26-34); Mean Corpuscular Volume 83.5 fL (80-100); Monocytes Absolute Auto 600 /uL (0-900); Monocytes Percent Auto 5.6 % (3-14); Neutrophils Absolute Auto 7400 /uL (1500-7000); Neutrophils Percent Auto 67.3 % (50-75); Platelet Count 295 X10^3/uL (150-400); Red Cell Distribution Width 16.7 % (11.6-14.8)
[2024-01-07 02:41] LABS: BUN Creatinine Ratio 18.4 (6-22); Blood Urea Nitrogen 14 mg/dL (7-17); Calcium 8.9 mg/dL (8.4-10.2); Carbon Dioxide 27 mmol/L (22-32); Chloride 105 mmol/L (98-107); Estimated Glomerular Filt Rate > 60 mL/min (>60); Glucose 89 mg/dL (70-100); HEMOLYSIS 15 (0-50); Potassium 3.8 mmol/L (3.4-5.1); Sodium 138 mmol/L (137-145)
[2024-01-07] MEDS: OXYCODONE/APAP 5/325 PREPACK 1 BOTTLE MISC (04:45)
[2024-01-07] MEDS: HYDROCODONE/ACET 5/325 TABLET 1 TAB PO (04:45)
--- NOTE | 2024-01-07 06:10 | PC.NURSE ---
DINING [employer] note: at 0530 attempted to get patient up to do a road test. Put non skid red socks on patient. Patient stood up at bedside with cueing and encouragement. Patient held onto walker but couldn't stand for long saying this won't work, I can't do it. Patient sat down at edge of bed and said she can't get in and out of her spouse's truck and her right arm and leg weren't strong enough to do stand her up. Helped patient back in bed and talked to nurse. Patient in bed comfortable now.
--- NOTE | 2024-01-07 09:29 | PT.IIE ---
Surgical History (Last Reviewed 12/15/23 @ 17:50 by Lior Pisano PA-C) Anesthesia History of partial hysterectomy (~2015) History of repair of anterior cruciate ligament of right knee Hx of cholecystectomy Medical History (Last Reviewed 12/15/23 @ 17:50 by Lior Pisano PA-C) Acne Allergies Anxiety Asthma Cataracts, bilateral Chicken pox Chronic back pain Chronically low serum potassium COPD (chronic obstructive pulmonary disease) Depression Diabetes Diabetic gastroparesis Dislocation of left patella Eczema Endometriosis Fatigue Fibroids Fibromyalgia Foot pain Gastroparesis GERD (gastroesophageal reflux disease) Headache Hearing loss Heavy menstrual period History of recurrent ear infection History of shingles Hyperlipidemia Hypertension Hypothyroidism Irregular menstrual cycle Irritable bowel syndrome Kidney stones Low vitamin D level Migraines Multiple sclerosis Obstructive sleep apnea syndrome Osteoarthritis Osteopenia Osteoporosis Ovarian cyst Painful menstrual periods PCOS (polycystic ovarian syndrome) Psoriasis Raynauds disease Recurrent sinusitis Ruptured tympanic membrane (~1977) Shoulder pain Sleep apnea Type 2 diabetes mellitus Vertigo Physical Therapy Inpatient Evaluation/Re-Eval M1 PT/OT-IP Prior Functional Status Start: 01/07/24 08:09 Freq: Status: Active Protocol: Document 01/07/24 08:10 MB (Rec: 01/07/24 09:29 [id number]) Medical Review Prior Functional Status Medical History Reviewed Yes Diet/Fluid Consistency Regular Communication WNLs Mobility and Gait Mod I with rollator and also used electric w/c, transport chair is broken currently Activities of Daily Living and IADL's Pt reports she was doing her own bathing and dressing at baseline Social History Household Members spouse,children Living Arrangements House Number of Floors (Floors) One Floor Number of Stairs To Enter/Railing? Ramped entrance Home Environment High Toilet,Walk in Shower, Ramp Home Equipment Four Wheel Walker,Manual Wheelchair,Power Wheelchair/ Scooter,Shower Seat without Backrest,Hand Held Shower, Hospital Bed,Grab Bars Near Toilet Additional Social History Comment Pt reports she is on disability from MS M2 PT-IP Current Condition Start: 01/07/24 08:09 Freq: Status: Active Protocol: Document 01/07/24 08:10 MB (Rec: 01/07/24 09:29 [id number]) Physical Therapy Current Condition Current Condition Evaluation Date 01/07/24 Treatment Diagnosis GLF, left wrist and ankle strains, left proximal fibula min displaced fx M3 PT-IP Subjective Start: 01/07/24 08:09 Freq: Status: Active Protocol: Document 01/07/24 08:10 MB (Rec: 01/07/24 09:29 MB [id number]) Subjective Physical Therapy Visit Type Type Initial Evaluation Visit Start Time 08:10 Visit Stop Time 09:05 Number of FLIGHT CONTROL TOWER OPERATOR Visits 0 Physical Therapy Visit Comments Patient Comments Pt is agreeable to PT. Patient Goals Pt would like to d/c home and states she refuses SNF. Therapy Pain Assessment Pain When Pain Assessed At Rest Pain Present Pain Present Pain Reported Location Left ribs Intensity 9 Scale Used Numeric (0 - 10) Left Leg Intensity 9 Scale Used Numeric (0 - 10) M4 PT-IP Mobility and Gait Start: 01/07/24 08:09 Freq: Status: Active Protocol: Document 01/07/24 08:10 MB (Rec: 01/07/24 09:29 MB [id number]) PT-Bed Mobility Assessment Supine to Sit Supine to Sit Contact Guard Assistance,1 Person Assistance,Head of Bed Elevated,Bedrails Sit to Supine Sit to Supine Contact Guard Assistance,1 Person Assistance,Head of Bed Elevated,Bedrails Scooting Scooting to Edge of Bed Contact Guard Assistance Scooting Up and Down in Bed Contact Guard Assistance PT-Transfer Assessment Sit to and From Stand Sit to and from Stand Contact Guard Assistance,1 Person Assistance,Use of Upper Extremities Equipment Transfer Assistive Device Gait Belt,Front Wheeled Walker Comments Mobility Comments PT loops black gait belt so that pt can use it under her left foot to move in and out of bed and pt uses well. Pt is able to perform STS with TTWB LLE well and states she is unable to take a step despite cues for forward with walker first, maintain TTWB left, step forward with left foot first and then push through hands to move right foot. Pt maintains static standing balance for many minutes with RW with SBA and no evidence of imbalance. PT-Balance Assessment Sitting Balance and Reactions Static Sitting Balance Ability Good Dynamic Sitting Balance Ability Good Standing Balance and Reactions Static Standing Balance Ability Good Dynamic Standing Balance Ability Poor Device Used RW M5 PT-IP Objective Assessments Start: 01/07/24 08:09 Freq: Status: Active Protocol: Document 01/07/24 08:10 MB (Rec: 01/07/24 09:29 MB [id number]) Orientation Orientation/Cognition Level of Alertness Alert Orientation Name,Age,Birthday,Month,Date, Year,Day of Week,Place, Situation Language Function Ability No Deficits Noted Safety Awareness Understands Safety Issues Memory Description No Deficits Noted Gross Range of Motion Upper Extremity ROM Assessment Left Impaired Impairments Defer to OT, pt has wrist brace on LUE Lower Extremity ROM Assessment Left Impaired Impairments Left LE splinted Strength Upper Extremity Strength Assessment Left Impaired Lower Extremity Strength Assessment Left Impaired Comments Strength Comments LLE is splinted and right LE is normal Coordination Assessment Gross Coordination Gross Coordination Impaired Assessment Coordination Comments Pt wearing left wrist brace Muscle Tone Muscle Tone WNL Yes M6 PT-IP Treatment Start: 01/07/24 08:09 Freq: Status: Active Protocol: Document 01/07/24 08:10 MB (Rec: 01/07/24 09:29 MB [id number]) Physical Therapy Treatment Education Education Provided Precautions,Weight Bearing Status,Safety Other Treatments Other Treatment Performed Demo and ed pt in use of gait belt to help unweight left leg with bed mobility, demo and ed SPT to the right to perform in future treatments and at home: gurney is too high and there is not appropriate chair to which to transfer in ED M7 PT-IP Assessment and Plan Start: 01/07/24 08:09 Freq: Status: Active Protocol: Document 01/07/24 08:10 MB (Rec: 01/07/24 09:29 [id number]) PT Summary Assessment and Plan Potential Rehabilitation Potential Good Status of Condition at Evaluation Evolving Summary Impairments Pain,ROM,Strength,Balance, Coordination,Bed Mobility, Transfers,Gait,Activity Tolerance Progress Towards Goals Slow Progress due to Pain,Slow Progress due to Activity Tolerance Assessment Summary Pt is a 48 y/o female presenting with c/o left ribs and leg pain after fall at home when she slid on wet kitchen floor. Pt was using rollator at the time and most often uses her electric w/c but there was not enough room to get it into the kitchen. Pt does well with bed mobility on high gurney with use of gait belt to help move LLE and she also does well with STS to RW and with standing with RW and maintaining TTWB LLE. Pt does not feel she can take a step despite demo, cues, and assistance at gait belt. She might benefit from SPT training to the right in the future and will try this if she is available tomorrow. Goals Bed Mobility Goal Independent Transfer Goal Standby Assistance,Front Wheeled Walker Gait Goal Standby Assistance,Front Wheel Walker Gait Distance 10 Other Goals Pt will perform SPT to the right with no more than SBA. Days to Meet Goals 5 Frequency of Treatment Frequency Of Treatment Once a Day Treatment Plan Physical Therapy Treatment Plan Bed Mobility Training,Transfer Training,Gait Training, Therapeutic Exercise,Balance Retraining,Discharge Planning, Hot or Cold Pack,Neuromuscular Re-ed,Coordination Retraining ,Manual Therapy Other Recommendations and Next Treatment Try SPT if there is Focus appropriate equipment in the ED: gurney is too high and there is no secure chair in room today. Weight Bearing Status Weight Bearing Status Touch Down Weight Bearing Allowed Weight Bearing Amount (enter % LLE or #) (%) Recommendations To Nursing Amount of Assist Needed Mechanical Lift Discharge Recommendations PT Discharge Recommendations Home vs SNF Other Discharge Recommendations If home, increased assistance and HHPT Equipment Needed for Home Before May possibly need 2WRW Discharge Transportation Needs at Discharge Wheelchair/Cabulance,Stretcher /Ambulance
[2024-01-07] MEDS: polyethylene glycoL 3350 17 GM POWD.PACK PO (10:36)
[2024-01-07] MEDS: OXYCODONE/ACETAMINOPHEN 5/325 TABLET 1 TAB PO (10:36)
--- NOTE | 2024-01-07 10:53 | PC.NURSE ---
PRIMARY HEALTH CARE NURSE: Patient placed on PureWick.
--- NOTE | 2024-01-07 11:17 | PC.NURSE ---
Attempted to reach hospitalist Dr. Kruse for Dr. Maya @[phone]. Called office @ [phone], [phone], asked coordinator to contact Dr. Kruse @[phone], called again @[phone] and @[phone].
--- NOTE | 2024-01-07 12:40 | PM.CALLCOV.1 ---
Call Coverage Note Note Narrative of Care Provided: 48 F with PMH of multiple sclerosis, hypertension, hypothyroidism, and type 1 diabetes, chronic hypoxemic respiratory failure who sustained a proximal fibular fracture after a fall. Per ER notes orthopedic provider stated the following: This is a stable proximal fibular fracture and she can weight bear as tolerated. In terms of immobilization if the posterior splint helps with comfort it can be used for the next 4-5 days. An alternative suggestion was a walking boot. Pain at the proximal fibula is going to be exacerbated by ankle twisting and instability so she may feel more confident in a walking boot as a comfort and stabilizing measure. He will see her as an outpatient Labs are currently unremarkable, as are vitals. Case was reviewed with utilization review for admittable diagnosis, however at this time the patient does not admission requirements for observation or inpatient admission. Per social admission policy guidelines, placement attempt is recommended with case management and ongoing therapy. If placement is not obtained within 48 hours, patient can then be transferred upstairs.
--- NOTE | 2024-01-07 14:34 | CM.SWNOTE ---
ED SET UP AND CHARGER Note Patient is 48 y/o female who presents to ED via EMS after GLF in the kitchen. Patient's PCP is Dr. Joseph at [facility], patient has Medicare and [employer] insurance. Patient has hx of MS, Type 2 Diabetes, Obstructed Sleep Apnea, Anxiety, Depression, PCOS, Hyperlipidemia, Hypertension, and Hypothyroidism. Significant hx of various comorbidities. Per scans in ED patient has closed left fibula fx, strain and sprain of left wrist, left ankle sprain, and Effusion of left knew. Patient failed ambulation trial with FWW this morning and PT was consulted, PT recommended home vs. HH. Patient endorses she is not interested in SNF rehab. Ortho is consulted and recommends ortho outpatient follow up. ED provider attempted to seek admission, hospitalist did not accept patient due to no admittable dx. SET UP AND CHARGER enters room to meet with patient. Patient presents as A/Ox4, patient presents with significant anxiety. Patient states that she resides at home with spouse in [place], patient states that her daughter is in college in [place]. Patient endorses friends as supports and states she has a maid housekeeper and hop weigher. Patient endorses she could manage ADLs at baseline but states she had good days and bad days with her MS. Patient states that she drives at baseline. Patient can ambulate at baseline but has various DME at home, patient states her wheelchair is out of commission at the moment, but patient has an electric wheelchair. Patient endorses concern for managing needs at home with fibula fx and wrist pain and states that her works a lot and is not a caregiver. Patient denies interest in SNF rehab and states she cannot afford to pay privately for SNF rehab. SET UP AND CHARGER discusses HH and patient agrees to HH with [facility] for PT, OT, RN and HH aide. SET UP AND CHARGER contacts [facility] and sends signed F2F, and clinicals for review. Kacey at [facility] endorses she received the referral and her team will follow up tomorrow. Patient endorses frustration with d/c to home and states she wished that ortho and hospitalist could have met with her in person due to her complex needs. SET UP AND CHARGER explains limitations with their availability to see patient in person in ED and usually the consults are conducted via phone with providers. This SET UP AND CHARGER explains that patient did not meet criteria for admission to the hospital and encourages patient to contact [facility] tomorrow for f/u. SET UP AND CHARGER provides patient with [facility] brochure, list of DME resources and lists of private pay caregivers. Plan: patient to d/c to home with spouse upon medical clearance, [facility] to f/u with patient, patient to f/u with [facility], patient to f/u with resources provided. Patient is discharged with FWW. JORGE ShelbySW
== END 2024-01-07 14:45 | disposition home or self-care (01) ==
PROVIDERS: Emergency Medicine; Emergency Provider Emergency Medicine; PCP Internal Medicine
DX: S82.492A Other fracture of shaft of left fibula, initial encounter for closed fracture (principal); S63.502A Unspecified sprain of left wrist, initial encounter; S96.912A Strain of unspecified muscle and tendon at ankle and foot level, left foot, initial encounter; S66.912A Strain of unspecified muscle, fascia and tendon at wrist and hand level, left hand, initial encounter; W18.30XA Fall on same level, unspecified, initial encounter; M25.462 Effusion, left knee; Z79.899 Other long term (current) drug therapy; G35 Multiple sclerosis; E11.9 Type 2 diabetes mellitus without complications; G47.30 Sleep apnea, unspecified; E66.01 Morbid (severe) obesity due to excess calories; Z68.42 Body mass index [BMI] 45.0-49.9, adult
CPT/HCPCS: 29260; 29505; 51798; 73110; 73502; 73562; 73610; 75635; 80048; 82962; 85025; 96374; 96375; 97161; 97535; 99284; J1200; J2270; J2405; J2919; Q9967

== ENCOUNTER 2024-04-16 17:56 | Emergency (ER) | payer MEDICARE, OTHER, SELFPAY ==
[2023-01-17 15:03] VITALS: BMI 45.2
[2024-04-16] VITALS (14 sets, daily range): BP systolic 123–155; BP diastolic 57–71; PULSE 83–90; RESP 17–31; TEMP 36.9; O2SAT 92–99; BMI 47.2
--- NOTE | 2024-04-16 18:42 | ED.GENADULT ---
HPI - General Adult General Chief complaint: Diabetic Problem Stated complaint: shaky, hard time finding words Time Seen by Provider: 04/16/24 18:13 History of Present Illness HPI narrative: Patient is a 48-year-old female history of multiple sclerosis hypertension hypothyroid type 1 diabetes chronic hypoxic respiratory failure who needs oxygen at night presenting today with variety of symptoms. She reports that for the last 4-5 days she has had difficulty getting words out she has bilateral lower extremity weakness. She has no upper extremity weakness. She is followed by [facility] neurology for her MS. She reports all of her MS flares present differently. She is just extremely weak progressively get worse. She also complains of mild sore throat. No fever or chills. She feels like some pressure in her face no cough. She has chronic abdominal pain that has not any worse no nausea or vomiting. She did stop off at [facility] before she arrived because her glucose was low. Related Data Home Medications Medication Instructions Recorded Confirmed levothyroxine 200 mcg tablet 200 mcg PO DAILY 02/07/18 09/07/23 topiramate 100 mg tablet 100 mg PO DAILY 02/07/18 09/07/23 zolpidem 5 mg tablet 5 mg PO BEDTIME PRN Insomnia 02/07/18 09/07/23 insulin aspart U-100 100 unit/mL See Rx Instructions .Route .COMPLEX 08/20/18 09/07/23 (3 mL) subcutaneous pen ibuprofen 800 mg tablet 600 mg PO Q8H PRN pain 08/14/19 09/07/23 trazodone 50 mg tablet 50 mg PO BEDTIME 08/14/19 09/07/23 potassium chloride 10 mEq 30 meq PO DAILY 11/18/19 09/07/23 tablet,extended release leflunomide 20 mg tablet 20 mg PO DAILY 08/03/21 09/07/23 montelukast 10 mg tablet 10 mg PO DAILY 08/03/21 09/07/23 triamterene 75 1 tab PO DAILY 08/03/21 09/07/23 mg-hydrochlorothiazide 50 mg tablet furosemide 20 mg tablet (Lasix) 20 mg PO Q OTHER DAY 01/17/23 09/07/23 doxycycline hyclate 100 mg capsule 100 mg PO BID 02/16/23 09/07/23 albuterol sulfate 2.5 mg/3 mL mg inhalation 07/10/23 09/07/23 (0.083 %) solution for nebulization alprazolam 0.25 mg tablet 0.25 mg PO DAILY 07/10/23 09/07/23 alprazolam 0.5 mg tablet 0.5 mg PO DAILY 07/10/23 09/07/23 amitriptyline 10 mg tablet 10 mg PO ONCE PM 07/10/23 09/07/23 amlodipine 10 mg tablet 10 mg PO DAILY 07/10/23 09/07/23 atorvastatin 20 mg tablet (Lipitor) 20 mg PO BEDTIME 07/10/23 09/07/23 baclofen 10 mg tablet 20 mg PO BID PRN Pain (Scale Score 07/10/23 09/07/23 1-3) blood-glucose sensor (Backup Circle G6 #1 ea 07/10/23 09/07/23 Sensor device) clindamycin phosphate 1 % lotion 1 applic topical BID 07/10/23 09/07/23 clindamycin phosphate 1 % topical topical 07/10/23 09/07/23 solution clobetasol 0.05 % shampoo 1 applic topical 07/10/23 09/07/23 clobetasol 0.05 % topical ointment topical 07/10/23 09/07/23 cyanocobalamin (vitamin B-12) 1,000 mcg IM MONTHLY 07/10/23 09/07/23 1,000 mcg/mL injection solution dexamethasone 1 mg tablet 1 mg PO ONCE 07/10/23 09/07/23 diazepam 5 mg tablet 5 mg PO DAILY PRN 07/10/23 09/07/23 ergocalciferol (vitamin D2) 1,250 1,250 mcg PO 07/10/23 09/07/23 mcg (50,000 unit) capsule erythromycin 5 mg/gram (0.5 %) eye EYE-BOTH 07/10/23 09/07/23 ointment estradiol 0.05 mg/24 hr semiweekly 1 patch transdermal 2XW 07/10/23 09/07/23 transdermal patch fluconazole 150 mg tablet mg PO 07/10/23 09/07/23 gabapentin 100 mg capsule mg PO 07/10/23 09/07/23 insulin lispro 200 unit/mL (3 mL) SUBCUT 07/10/23 09/07/23 subcutaneous pen (Humalog KwikPen U-200 Insulin) ketoconazole 2 % topical cream applic topical 07/10/23 09/07/23 leflunomide 10 mg tablet 10 mg PO DAILY 07/10/23 09/07/23 levothyroxine 25 mcg tablet 25 mcg PO DAILY 07/10/23 09/07/23 methylprednisolone 4 mg tablets in 0 mg PO 07/10/23 09/07/23 a dose pack metoprolol succinate 25 mg 25 mg PO DAILY 07/10/23 09/07/23 tablet,extended release 24 hr ofloxacin 0.3 % ear drops drp otic (ear) DAILY 07/10/23 09/07/23 omeprazole 40 mg capsule,delayed 40 mg PO DAILY 07/10/23 09/07/23 release ondansetron 4 mg disintegrating 4 mg PO Q8H PRN 07/10/23 09/07/23 tablet oxcarbazepine 300 mg tablet 300 mg PO BID 07/10/23 09/07/23 potassium chloride 10 mEq 10 meq PO DAILY 07/10/23 09/07/23 tablet,extended release(part/cryst) sodium sul 1.479 gram-potas ch 12 tab PO DIRECTED 07/10/23 09/07/23 0.188 gram-magnes sul 0.225 gram tablet (Sutab) sodium,potassium,mag sulfates 17.5 PO 07/10/23 09/07/23 gram-3.13 gram-1.6 gram oral soln fezolinetant 45 mg tablet (Veozah) 45 mg PO DAILY 09/07/23 09/07/23 glucagon 1 mg/0.2 mL subcutaneous 1 mg SUBCUT ONCE 09/07/23 09/07/23 auto-injector (Alondra Peterson 2-Pack) tirzepatide 2.5 mg/0.5 mL 2.5 mg SUBCUT QWEEK 09/07/23 09/07/23 subcutaneous pen injector (Juanita) tizanidine 2 mg tablet 4 mg PO BID 09/07/23 09/07/23 Previous Rx's Medication Instructions Recorded losartan 25 mg tablet 25 mg PO DAILY #30 tabs 08/04/21 meclizine 12.5 mg tablet 12.5 mg PO Q6HR PRN Vertigo #20 08/04/21 tabs oxycodone 5 mg tablet 5 mg PO Q4HR PRN Pain, Severe 08/04/21 (7-10) #10 tabs promethazine 25 mg tablet 12.5 mg (1/2 x 25 mg) PO Q6HR PRN 08/04/21 NAUSEA/VOMITING #20 tabs azithromycin 250 mg tablet See Rx Instructions PO .COMPLEX #6 09/14/23 tabs hydrocodone 5 mg-acetaminophen 325 1 tab PO Q6H PRN pain #10 tabs 09/14/23 mg tablet dicyclomine 20 mg tablet 20 mg PO TID PRN abdominal pain 12/15/23 #20 tabs ondansetron 8 mg disintegrating 8 mg PO Q8H PRN nausea and 12/15/23 tablet vomiting #20 tabs oxycodone 5 mg tablet 5 mg PO Q6H PRN pain #10 tabs 01/07/24 oxycodone 5 mg tablet 5 mg PO Q6H PRN pain #10 tabs 01/07/24 oxycodone-acetaminophen 5 mg-325 1 tab PO Q6H PRN pain #20 tabs 01/07/24 mg tablet Allergies Allergy/AdvReac Type Severity Reaction Status Date / Time codeine Allergy Severe Rash Verified 12/15/23 15:29 lovastatin [From Advicor] Allergy Severe Anaphylaxis Verified 12/15/23 15:29 niacin [From Advicor] Allergy Severe Anaphylaxis Verified 12/15/23 15:29 pseudoephedrine Allergy Severe Anaphylaxis Verified 12/15/23 15:29 red (food color) Allergy Severe Anaphylaxis Verified 12/15/23 15:29 mushroom Allergy Unknown Verified 12/15/23 15:29 ampicillin Allergy Rash Verified 12/15/23 15:29 barium iodide Allergy Verified 12/15/23 15:29 erythromycin base Allergy Verified 12/15/23 15:29 glatiramer (copolymer 1) Allergy Verified 12/15/23 15:29 interferon beta-1a Allergy itching Verified 12/15/23 15:29 and rash Iodinated Contrast Media Allergy Verified 12/15/23 15:29 lisinopril Allergy Kidneys Verified 12/15/23 15:29 shut down metformin Allergy Gastrointestinal Verified 12/15/23 15:29 Upset Sulfa (Sulfonamide Allergy Verified 12/15/23 15:29 Antibiotics) Penicillins AdvReac Mild Gi Verified 12/15/23 15:29 intolerance artificial sweetners Allergy Uncoded 07/10/23 14:44 Patient History Medical History Psoriasis Eczema Acne Sleep apnea COPD (chronic obstructive pulmonary disease) Asthma Allergies Depression Anxiety Migraines Headache Shoulder pain Osteoporosis Osteopenia Foot pain Chronic back pain Chicken pox Vertigo Ruptured tympanic membrane (~1977) Recurrent sinusitis History of recurrent ear infection Hearing loss Cataracts, bilateral Painful menstrual periods Ovarian cyst Irregular menstrual cycle Heavy menstrual period Fibroids Endometriosis Kidney stones Irritable bowel syndrome GERD (gastroesophageal reflux disease) Gastroparesis Hypertension Dislocation of left patella Fatigue Hypothyroidism Raynauds disease Hyperlipidemia PCOS (polycystic ovarian syndrome) History of shingles Osteoarthritis Obstructive sleep apnea syndrome Diabetic gastroparesis Type 2 diabetes mellitus Chronically low serum potassium Diabetes Low vitamin D level Fibromyalgia Multiple sclerosis Surgical History Anesthesia History of partial hysterectomy (~2015) Hx of cholecystectomy History of repair of anterior cruciate ligament of right knee Family History Family/Other Loud snoring Sleep apnea Depression Dementia Father Loud snoring Sleep apnea Insomnia Restless legs syndrome Obesity Hypertension Heart disease Depression Bipolar disorder Hyperlipidemia Mental health problem Mother Insomnia Hypertension Depression Anxiety Eating disorder Eye disease Heart disease Hyperlipidemia Mental health problem Endometriosis Family/Other Loud snoring Obesity Hypertension Depression Anxiety Sister Eating disorder Heart disease Hypertension Hyperlipidemia Mental health problem Grandfather Cancer Mental health problem Grandmother Alzheimer's disease Hypertension Mental health problem Grandfather Cancer Grandmother Mental health problem Family/Other Freya-Danlos disease Mental health problem H/O autistic disorder Social History marital status: household members: spouse and children Smoking Status: Never smoker alcohol intake: current Smoking Status: Never smoker alcohol intake frequency: holidays/special occasions only Exam Initial Vital Signs Initial Vital Signs: Vital Signs Temperature 98.5 F 04/16/24 18:03 Pulse Rate 90 04/16/24 18:03 Respiratory Rate 18 04/16/24 18:03 Blood Pressure 124/64 04/16/24 18:03 Pulse Oximetry 99 04/16/24 18:03 Oxygen Delivery Method Room Air 04/16/24 18:03 GENERAL: Alert pleasant 48-year-old female and in no acute distress. HEENT: Head atraumatic,EOMI, pupils reactive, face symmetric, moist mucous membranes PHARYNX: Mild erythema no uvula swelling or deviation managing airway secretions CARDIOVASCULAR: Regular rate and rhythm without murmurs, rubs or gallops. RESPIRATORY: Breath sounds equal bilaterally, no wheezes rales or rhonchi. ABDOMEN: Soft, nontender. Normoactive bowel sounds all 4 quadrants. No guarding or rebound. EXTREMITIES: Normal range of motion, no clubbing or edema. Neurovascularly intact NEUROLOGICAL: Alert and oriented x4.Normal gait and speech. Cranial nerves II through XII grossly intact. Good [id number], week [id number] bilaterally, lower extremity strength is weak bilaterally, no dysarthria or aphasia, sensation in tact to soft touch bilaterally, no visual changes, no facial droop SKIN: Warm, dry, no laceration, no petechiae, no rashes or lesions. Course Orders Ordered: ED Orders 04/16/24 18:41 CT head/brain wo con Stat 04/16/24 19:08 Covid-19 + FLU A/B + RSV - PCR Stat 04/16/24 19:34 CBC Auto Diff [Complete Blood Count AUTO DIFF] Stat CMP [Comprehensive Metabolic Panel] Stat Lactate (Lactic Acid) Stat 04/16/24 21:06 Strep Grp A by PCR Rapid Stat Discontinued Medications Sodium Chloride (Normal Saline 0.9%) 1,000 mls @ 1,000 mls/hr IV BOLUS ONE Stop: 04/16/24 19:40 Last Infusion: 04/16/24 19:56 Dose: Infused Documented By: Admin: 04/16/24 19:07 Dose: 1,000 mls/hr Documented By: TRISTEN Sodium Chloride (Normal Saline 0.9%) 1,000 mls @ 1,000 mls/hr IV BOLUS ONE Stop: 04/16/24 21:01 Last Infusion: 04/16/24 22:03 Dose: Infused Documented By: Admin: 04/16/24 20:30 Dose: 1,000 mls/hr Documented By: TRISTEN Ketorolac Tromethamine (Ketorolac 30 Mg/Ml Vial) 15 mg IV NOW ONE Stop: 04/16/24 22:04 Last Admin: 04/16/24 22:11 Dose: 15 mg Documented By: TRISTEN Ondansetron HCl (Ondansetron 4 Mg/2 Ml Inj) 4 mg IV NOW ONE Stop: 04/16/24 22:04 Last Admin: 04/16/24 22:12 Dose: 4 mg Documented By: TRISTEN Vital Signs Vital signs: Vital Signs - 8 hr 04/16/24 18:03 04/16/24 18:04 04/16/24 18:07 Temperature 98.5 F Pulse Rate 90 88 84 Respiratory Rate 18 Blood Pressure 124/64 Pulse Oximetry 99 97 97 Oxygen Delivery Method Room Air Oxygen Flow Rate 04/16/24 18:07 04/16/24 18:30 04/16/24 18:30 Temperature Pulse Rate 86 Respiratory Rate Blood Pressure 124/64 123/58 L Pulse Oximetry 93 Oxygen Delivery Method Oxygen Flow Rate 04/16/24 19:00 04/16/24 19:00 04/16/24 19:30 Temperature Pulse Rate 89 88 Respiratory Rate Blood Pressure 126/57 L Pulse Oximetry 92 94 Oxygen Delivery Method Nasal Cannula Oxygen Flow Rate 1.5 04/16/24 20:00 04/16/24 20:00 04/16/24 20:30 Temperature Pulse Rate 85 85 Respiratory Rate Blood Pressure 128/68 Pulse Oximetry 96 95 Oxygen Delivery Method Oxygen Flow Rate 04/16/24 20:33 04/16/24 20:33 04/16/24 21:00 Temperature Pulse Rate 84 88 Respiratory Rate 24 Blood Pressure 126/58 L Pulse Oximetry 95 95 Oxygen Delivery Method Nasal Cannula Oxygen Flow Rate 1.5 04/16/24 21:00 04/16/24 21:30 04/16/24 21:30 Temperature Pulse Rate 90 Respiratory Rate 17 Blood Pressure 127/66 145/68 H Pulse Oximetry 93 Oxygen Delivery Method Oxygen Flow Rate 04/16/24 22:00 04/16/24 22:00 04/16/24 22:30 Temperature Pulse Rate 83 Respiratory Rate 20 Blood Pressure 155/70 H 152/71 H Pulse Oximetry 96 Oxygen Delivery Method Oxygen Flow Rate 04/16/24 22:30 04/16/24 22:30 04/16/24 22:30 Temperature Pulse Rate Respiratory Rate Blood Pressure 152/71 H 152/71 H 152/71 H Pulse Oximetry Oxygen Delivery Method Oxygen Flow Rate 04/16/24 22:30 04/16/24 22:30 04/16/24 23:00 Temperature Pulse Rate 85 Respiratory Rate 31 H Blood Pressure 152/71 H 135/63 Pulse Oximetry 96 Oxygen Delivery Method Oxygen Flow Rate 04/16/24 23:00 Temperature Pulse Rate 83 Respiratory Rate 17 Blood Pressure Pulse Oximetry 94 Oxygen Delivery Method Oxygen Flow Rate Medical Decision Making Lab Data 04/16/24 19:34 04/16/24 19:34 Labs: Lab Results 04/16/24 04/16/24 04/16/24 Range/Units 19:08 19:34 21:06 WBC 7.8 (4.5-11.0) X10^3/uL RBC 4.35 (4.0-5.2) X10^6/uL Hgb 12.0 (12.0-16.0) g/dL Hct 37.3 (36-46) % MCV 85.7 (80-100) fL MCH 27.5 (26-34) PG MCHC 32.1 (30-36) % RDW 15.5 H (11.6-14.8) % Plt Count 259 (150-400) X10^3/uL Neut % (Auto) 57.1 (50-75) % Lymph % (Auto) 32.1 (25-40) % [place] % (Auto) 7.3 (3-14) % Eos % (Auto) 2.8 (2-4) % Baso % (Auto) 0.7 (0-2) % Neut # (Auto) 4400 (0756-0811) /uL Lymph # (Auto) 2500 (2133-3448) /uL [place] # (Auto) 600 (0-900) /uL Eos # (Auto) 200 (0-450) /uL Baso # (Auto) 100 (0-100) /uL Sodium 142 (137-145) mmol/L Potassium 3.3 L (3.4-5.1) mmol/L Chloride 104 (98-107) mmol/L Carbon Dioxide 35 H (22-32) mmol/L BUN 17 (7-17) mg/dL Creatinine 1.25 H (0.52-1.04) mg/dL Estimated GFR 53 L (>60) mL/min BUN/Creatinine Ratio 13.6 (6-22) Glucose 56 L (70-100) mg/dL Lactate 0.8 (0.7-2.1) mmol/L Calcium 8.8 (8.4-10.2) mg/dL Total Bilirubin 0.2 (0.2-1.3) mg/dL AST 19 (14-36) IU/L ALT 17 (<35) IU/L Alkaline Phosphatase 55 (38-126) U/L Total Protein 6.1 L (6.3-8.2) g/dL Albumin 3.7 (3.5-5.0) g/dL Globulin 2.4 (1.7-4.1) g/dL Albumin/Globulin Ratio 1.5 (1.0-2.8) SARS-CoV-2 (PCR) Negative (Negative) Influenza A (RT-PCR) Flu a negative (NEGATIVE) Influenza B (RT-PCR) Flu b negative (NEGATIVE) RSV (PCR) Negative (Negative) Group A Strep (PCR) Negative (Negative) Point of Care Testing Test Results Negative Glucose POC 121 Urine Dip Bedside Urine Glucose Negative Bedside Urine Bilirubin - Negative Bedside Urine Ketone - Negative Urine Specific Crivitz 1.030 Bedside Urine Occult Blood - Negative Bedside Urine pH 5.5 Bedside Urine Protein - Negative Bedside Urine Urobilinogen - Negative Bedside Urine Nitrite - Negative Bedside Urine Leukocytes - Negative Esterase Point of care testing: Point of Care Testing Test Results Negative Glucose POC 121 Urine Dip Bedside Urine Glucose Negative Bedside Urine Bilirubin - Negative Bedside Urine Ketone - Negative Urine Specific [place] 1.030 Bedside Urine Occult Blood - Negative Bedside Urine pH 5.5 Bedside Urine Protein - Negative Bedside Urine Urobilinogen - Negative Bedside Urine Nitrite - Negative Bedside Urine Leukocytes - Negative Esterase Imaging Data CT scan - head: Radiologist's Impression: PROCEDURE: CT HEAD/BRAIN WO CON INDICATIONS: weakness difficulty speaking TECHNIQUE: Noncontrast 4.5 mm thick angled axial sections acquired from the foramen magnum to the vertex, with coronal and sagittal reformats. For radiation dose reduction, the following was used: automated exposure control, adjustment of mA and/or kV according to patient size. COMPARISON: [facility], CT, CT HEAD/BRAIN WO CON, 11/18/2019, 15:33. FINDINGS: Image quality: Diagnostic. CSF spaces: Basal cisterns are patent. No extra-axial fluid collections. Ventricles are normal in size and shape. Brain: No midline shift. No intracranial masses or hemorrhage. Davidson-white matter interface is normal. Skull and face: Calvarium and visualized facial bones are intact, without suspicious lesions. Sinuses: Visualized sinuses and mastoids are clear. IMPRESSION: No acute intracranial pathology. Dictated by: Rohan Richardson M.D. on 04/16/2024 at 19:04 MDM Narrative Medical decision making narrative: MDM CC: Weakness hypoglycemia Complicating co-morbidities: MS hypertension diabetes Medical records reviewed: Previous ED visit 01/07/2020 had stable proximal femur fracture Differential considered: Infection, sepsis, MS flare, diabetic problem Exam documented above, pertinent findings include: Wake alert 48-year-old female I do not particularly appreciate significant word-finding difficulty. She does have significant lower extremity weakness bilaterally upper extremity strength is intact Lab Test results independently reviewed as above. Pertinent findings: CBC no leukocytosis no anemia CMP mild hypokalemia potassium 3.3 creatinine slightly elevated 1.25 previously 0.76 Liver enzymes within normal limits Glucose 56 Imaging studies independently reviewed: No intracranial abnormalities Consultations: DR. Aguilar Neurology difficult to say MS flare not she was in a follow up appointment this week Treatments: Food IV fluids Zofran Toradol Re-evaluations: Patient was given food glucose remained stable she had a turkey sandwich it is now 171 she has had 2 L of fluid she feels like her mouth is better she has no difficulty speaking. She was at her baseline mobility Discussion: Patient 48-year-old female with history of MS presenting today with generalized weakness. Reports that she has been having some speech difficulty. Her glucose has been low at home. It was 56 here and this is after she had dinner from [employer]. She continues to be awake alert eat and drink here in the ED. finally glucose did start her eyes and nose 171. She was overall feeling better. She is mildly dehydrated with a creatinine of 1.25 given 2 L of IV fluids. She thinks that an MS flare might be starting but feels comfortable going home. She is close outpatient follow-up with neurology this week. Discharge Plan Departure Patient Disposition: Home Clinical Impression: Dehydration, Hypoglycemia Instructions: Dehydration Activity Restrictions/Additional Instructions: *You have been diagnosed with dehydration low sugar *What to do: Increase fluid as tolerated sure sugars are stable *Continue to take medications as directed *Follow up with your primary care provider in 2-3 days or call [phone] Follow up with Neurology as scheduled *Return to ER if you should have increased weakness confusion or any new, worsening or concerning symptoms Prescriptions: No Action atorvastatin [Lipitor] 20 mg tablet 20 mg PO BEDTIME amitriptyline 10 mg tablet 10 mg PO ONCE PM omeprazole 40 mg capsule,delayed release(DR/EC) 40 mg PO DAILY metoprolol succinate 25 mg tablet extended release 24 hr 25 mg PO DAILY ergocalciferol (vitamin D2) 1,250 mcg (50,000 unit) capsule 1,250 mcg PO Humalog KwikPen Insulin 200 unit/mL (3 mL) insulin pen SUBCUT Patient Comments: [NO ORIGINAL SIG] clindamycin phosphate 1 % solution topical estradiol 0.05 mg/24 hr patch semiweekly 1 patch transdermal 2XW methylprednisolone 4 mg tablets,dose pack 0 mg PO albuterol sulfate 2.5 mg /3 mL (0.083 %) solution for nebulization inhalation cyanocobalamin (vitamin B-12) 1,000 mcg/mL solution 1,000 mcg IM MONTHLY clobetasol 0.05 % ointment topical leflunomide 10 mg tablet 10 mg PO DAILY erythromycin 5 mg/gram (0.5 %) ointment EYE-BOTH Sutab 1.479-0.188- 0.225 gram tablet 12 tab PO DIRECTED ofloxacin 0.3 % drops otic (ear) DAILY potassium chloride 10 mEq tablet,ER particles/crystals 10 meq PO DAILY amlodipine 10 mg tablet 10 mg PO DAILY levothyroxine 25 mcg tablet 25 mcg PO DAILY sodium,potassium,mag sulfates 17.5-3.13-1.6 gram recon soln PO gabapentin 100 mg capsule PO diazepam 5 mg tablet 5 mg PO DAILY PRN alprazolam 0.25 mg tablet 0.25 mg PO DAILY alprazolam 0.5 mg tablet 0.5 mg PO DAILY ondansetron 4 mg tablet,disintegrating 4 mg PO Q8H PRN ketoconazole 2 % cream topical oxcarbazepine 300 mg tablet 300 mg PO BID dexamethasone 1 mg tablet 1 mg PO ONCE fluconazole 150 mg tablet PO clobetasol 0.05 % shampoo 1 applic topical clindamycin phosphate 1 % lotion 1 applic topical BID (DME) Dexcom G6 Sensor Device See Rx Instructions .ROUTE Q10D Qty: 1 Rx Instructions: As directed tizanidine 2 mg tablet 4 mg PO BID oxycodone 5 mg tablet 5 mg PO Q6H PRN (Reason: pain) Qty: 10 0RF oxycodone 5 mg tablet 5 mg PO Q6H PRN (Reason: pain) Qty: 10 0RF oxycodone-acetaminophen 5-325 mg tablet 1 tab PO Q6H PRN (Reason: pain) Qty: 20 0RF levothyroxine 200 mcg tablet 200 mcg PO DAILY topiramate 100 mg tablet 100 mg PO DAILY zolpidem 5 mg tablet 5 mg PO BEDTIME PRN (Reason: Insomnia) Patient Comments: TK 1 T PO AT NIGHT PRF INSOMNIA baclofen 10 mg tablet 20 mg PO BID PRN (Reason: Pain (Scale Score 1-3)) insulin aspart U-100 100 unit/mL (3 mL) insulin pen See Rx Instructions .ROUTE .COMPLEX Patient Comments: ADM 30 UNI SC TID WC Rx Instructions: has insulin pump. takes 1 unit of insulin per every 2 carbs. ibuprofen 800 mg tablet 600 mg PO Q8H PRN (Reason: pain) trazodone 50 mg Tablet 50 mg PO BEDTIME Rx Instructions: take one to two tablets at bed time up to 100mg by mouth potassium chloride 10 mEq Tablet Extended Release 30 meq PO DAILY leflunomide 20 mg Tablet 20 mg PO DAILY montelukast 10 mg Tablet 10 mg PO DAILY triamterene-hydrochlorothiazid 75-50 mg Tablet 1 tab PO DAILY meclizine 12.5 mg Tablet 12.5 mg PO Q6HR PRN (Reason: Vertigo) Qty: 20 0RF promethazine 25 mg Tablet 12.5 mg PO Q6HR PRN (Reason: NAUSEA/VOMITING) Qty: 20 0RF losartan 25 mg Tablet 25 mg PO DAILY Qty: 30 0RF oxycodone 5 mg Tablet 5 mg PO Q4HR PRN (Reason: Pain, Severe (7-10)) Qty: 10 0RF azithromycin 250 mg tablet See Rx Instructions PO .COMPLEX Qty: 6 0RF Rx Instructions: For 250 mg dose pack: take 500 mg today (day 1), then 250 mg for 4 days (days 2-5) hydrocodone-acetaminophen 5-325 mg tablet 1 tab PO Q6H PRN (Reason: pain) Qty: 10 0RF ondansetron 8 mg tablet,disintegrating 8 mg PO Q8H PRN (Reason: nausea and vomiting) Qty: 20 0RF dicyclomine 20 mg tablet 20 mg PO TID PRN (Reason: abdominal pain) Qty: 20 0RF Gvoke HypoPen 2-Pack 1 mg/0.2 mL auto-injector 1 mg SUBCUT ONCE Rx Instructions: as a single dose; may repeat once after 15 minutes if no response Mounjaro 2.5 mg/0.5 mL pen injector 2.5 mg SUBCUT QWEEK Veozah 45 mg tablet 45 mg PO DAILY furosemide [Lasix] 20 mg tablet 20 mg PO Q OTHER DAY doxycycline hyclate 100 mg capsule 100 mg PO BID Referrals: Ankur Joseph DO [Primary Care Provider] - Stand Alone Forms: Patient Portal/API/Survey
[2024-04-16] MEDS: SODIUM CHLORIDE 0.9% 1,000 ML 1000 ML IV ×2 (19:07→20:30)
--- NOTE | 2024-04-16 19:23 | PC.NURSE ---
Patient desatting to 86% when resting, patient has reported history of sleep apnea and states that sometimes she will wear oxygen while taking naps, patient placed on 1.5L to maintain sats above 92%
[2024-04-16 19:43] LABS: Add Manual Diff / Slide Review NO; Basophils Absolute Auto 100 /uL (0-100); Basophils Percent Auto 0.7 % (0-2); Eosinophils Absolute Auto 200 /uL (0-450); Eosinophils Percent Auto 2.8 % (2-4); Hematocrit 37.3 % (36-46); Lymphocytes Absolute Auto 2500 /uL (1100-4500); Lymphocytes Percent Auto 32.1 % (25-40); Mean Corpuscular HGB Conc 32.1 % (30-36); Mean Corpuscular Hemoglobin 27.5 PG (26-34); Mean Corpuscular Volume 85.7 fL (80-100); Monocytes Absolute Auto 600 /uL (0-900); Monocytes Percent Auto 7.3 % (3-14); Neutrophils Absolute Auto 4400 /uL (1500-7000); Neutrophils Percent Auto 57.1 % (50-75); Platelet Count 259 X10^3/uL (150-400); Red Blood Cell Count 4.35 X10^6/uL (4.0-5.2); Red Cell Distribution Width 15.5 % (11.6-14.8); White Blood Cell Count 7.8 X10^3/uL (4.5-11.0)
[2024-04-16 19:50] LABS: Influenza A - CEPHEID Flu A NEGATIVE (NEGATIVE); Influenza B - CEPHEID Flu B NEGATIVE (NEGATIVE); Respiratory Syncytial Virus Negative (Negative)
[2024-04-16 19:53] LABS: COVID-19 CEPHEID 4-PLEX PCR Negative (Negative)
[2024-04-16 19:58] LABS: Alanine Aminotransferase 17 IU/L (<35); Albumin 3.7 g/dL (3.5-5.0); Albumin Globulin Ratio 1.5 (1.0-2.8); Alkaline Phosphatase 55 U/L (38-126); Aspartate Aminotransferase 19 IU/L (14-36); BUN Creatinine Ratio 13.6 (6-22); Bilirubin Total 0.2 mg/dL (0.2-1.3); Blood Urea Nitrogen 17 mg/dL (7-17); Calcium 8.8 mg/dL (8.4-10.2); Carbon Dioxide 35 mmol/L (22-32); Chloride 104 mmol/L (98-107); Estimated Glomerular Filt Rate 53 mL/min (>60); Globulin 2.4 g/dL (1.7-4.1); Glucose 56 mg/dL (70-100); HEMOLYSIS < 15 (0-50); Potassium 3.3 mmol/L (3.4-5.1); Sodium 142 mmol/L (137-145); Total Protein 6.1 g/dL (6.3-8.2)
[2024-04-16 19:59] LABS: Lactate (Lactic Acid) 0.8 mmol/L (0.7-2.1)
[2024-04-16 21:22] LABS: Strep Grp A by PCR Rapid Negative (Negative)
[2024-04-16] MEDS: KETOROLAC 30 MG/ML VIAL 15 MG IV (22:11)
[2024-04-16] MEDS: ONDANSETRON 4 MG/2 ML INJ IV (22:12)
== END 2024-04-16 23:22 | disposition home or self-care (01) ==
PROVIDERS: Emergency Provider Emergency Medicine; PCP Internal Medicine
DX: E10.649 Type 1 diabetes mellitus with hypoglycemia without coma (principal); E86.0 Dehydration; Z79.4 Long term (current) use of insulin; I10 Essential (primary) hypertension; G35 Multiple sclerosis; E03.9 Hypothyroidism, unspecified; J02.9 Acute pharyngitis, unspecified
CPT/HCPCS: 0241U; 36415; 70450; 80053; 81003; 81025; 82962; 83605; 85025; 87651; 96361; 96374; 96375; 99284; 99285; J1885; J2405

== ENCOUNTER 2024-05-12 12:40 | Emergency (ER) | payer MEDICARE, OTHER, SELFPAY ==
[2023-01-17 15:03] VITALS: BMI 45.2
[2024-05-12 12:59] VITALS: BP 116/58; PULSE 94; RESP 16; TEMP 36.8; O2SAT 94; BMI 45.3
[2024-05-12 13:49] VITALS: PULSE 93; O2SAT 95
[2024-05-12 13:54] LABS: COVID-19 CEPHEID 4-PLEX PCR Negative (Negative); Influenza A - CEPHEID Flu A NEGATIVE (NEGATIVE); Influenza B - CEPHEID Flu B NEGATIVE (NEGATIVE); Respiratory Syncytial Virus Negative (Negative)
[2024-05-12 14:00] VITALS: PULSE 92; O2SAT 91
--- NOTE | 2024-05-12 14:01 | PC.NURSE ---
Pt reports feels like drowning at times and cough went from productive to non-productive so she came in. Pt has hx of asthma and doctors are trying to determine if I have COPD. Not oxygen dependent. Pt is A&Ox4. Her breathing is even and unlabored. Talking in full sentences. RT called for evaluation.
[2024-05-12] MEDS: ALBUTEROL/IPRATROPIUM 3 ML AMPUL INH (14:10)
[2024-05-12 14:11] VITALS: PULSE 94; RESP 24; O2SAT 92
--- NOTE | 2024-05-12 14:43 | DI.RAD.S_ITS ---
PROCEDURE: XR CHEST 2V INDICATIONS: dyspnea TECHNIQUE: 2 views of the chest were acquired. COMPARISON: [facility], CR, XR CHEST 1V, 04/20/2022, 19:07. FINDINGS: Surgical changes and devices: None. Lungs and pleura: Lungs are clear. No pleural effusions or pneumothorax. Mediastinum: Mediastinal contours are normal. Heart size is enlarged. Bones and chest wall: No suspicious bony abnormalities. Soft tissues appear unremarkable. IMPRESSION: Right upper lobe patchy infiltrate Cardiomegaly without vascular congestion Approved by: Bhargav Martinez M.D. on 05/12/2024 at 14:40
--- NOTE | 2024-05-12 14:48 | ED.URI ---
HPI - URI/Sore Throat General Chief Complaint: Upper Respiratory Symptoms Stated Complaint: Cough/Migraine/Congestion Time Seen by Provider: 05/12/24 13:58 Source: patient Mode of arrival: Ambulatory History of Present Illness HPI Narrative: 48-year-old female with a history of type 1 diabetes and asthma presenting with nasal congestion cough and wheezing. Also reports a headache she has been sick for about a week. He has not having chest pain has some nausea and has had little bit of diarrhea. Blood sugars have been maintaining at reasonable levels. Not having abdominal pain believes she may have been having some intermittent fevers. Says that she is almost out of her albuterol. Not presently on steroids Related Data Home Medications Medication Instructions Recorded Confirmed levothyroxine 200 mcg tablet 200 mcg PO DAILY 02/07/18 09/07/23 topiramate 100 mg tablet 100 mg PO DAILY 02/07/18 09/07/23 zolpidem 5 mg tablet 5 mg PO BEDTIME PRN Insomnia 02/07/18 09/07/23 insulin aspart U-100 100 unit/mL See Rx Instructions .Route .COMPLEX 08/20/18 09/07/23 (3 mL) subcutaneous pen ibuprofen 800 mg tablet 600 mg PO Q8H PRN pain 08/14/19 09/07/23 trazodone 50 mg tablet 50 mg PO BEDTIME 08/14/19 09/07/23 potassium chloride 10 mEq 30 meq PO DAILY 11/18/19 09/07/23 tablet,extended release leflunomide 20 mg tablet 20 mg PO DAILY 08/03/21 09/07/23 montelukast 10 mg tablet 10 mg PO DAILY 08/03/21 09/07/23 triamterene 75 1 tab PO DAILY 08/03/21 09/07/23 mg-hydrochlorothiazide 50 mg tablet furosemide 20 mg tablet (Lasix) 20 mg PO Q OTHER DAY 01/17/23 09/07/23 doxycycline hyclate 100 mg capsule 100 mg PO BID 02/16/23 09/07/23 albuterol sulfate 2.5 mg/3 mL mg inhalation 07/10/23 09/07/23 (0.083 %) solution for nebulization alprazolam 0.25 mg tablet 0.25 mg PO DAILY 07/10/23 09/07/23 alprazolam 0.5 mg tablet 0.5 mg PO DAILY 07/10/23 09/07/23 amitriptyline 10 mg tablet 10 mg PO ONCE PM 07/10/23 09/07/23 amlodipine 10 mg tablet 10 mg PO DAILY 07/10/23 09/07/23 atorvastatin 20 mg tablet (Lipitor) 20 mg PO BEDTIME 07/10/23 09/07/23 baclofen 10 mg tablet 20 mg PO BID PRN Pain (Scale Score 07/10/23 09/07/23 1-3) blood-glucose sensor ([employer] G6 #1 ea 07/10/23 09/07/23 Sensor device) clindamycin phosphate 1 % lotion 1 applic topical BID 07/10/23 09/07/23 clindamycin phosphate 1 % topical topical 07/10/23 09/07/23 solution clobetasol 0.05 % shampoo 1 applic topical 07/10/23 09/07/23 clobetasol 0.05 % topical ointment topical 07/10/23 09/07/23 cyanocobalamin (vitamin B-12) 1,000 mcg IM MONTHLY 07/10/23 09/07/23 1,000 mcg/mL injection solution dexamethasone 1 mg tablet 1 mg PO ONCE 07/10/23 09/07/23 diazepam 5 mg tablet 5 mg PO DAILY PRN 07/10/23 09/07/23 ergocalciferol (vitamin D2) 1,250 1,250 mcg PO 07/10/23 09/07/23 mcg (50,000 unit) capsule erythromycin 5 mg/gram (0.5 %) eye EYE-BOTH 07/10/23 09/07/23 ointment estradiol 0.05 mg/24 hr semiweekly 1 patch transdermal 2XW 07/10/23 09/07/23 transdermal patch fluconazole 150 mg tablet mg PO 07/10/23 09/07/23 gabapentin 100 mg capsule mg PO 07/10/23 09/07/23 insulin lispro 200 unit/mL (3 mL) SUBCUT 07/10/23 09/07/23 subcutaneous pen (Humalog KwikPen U-200 Insulin) ketoconazole 2 % topical cream applic topical 07/10/23 09/07/23 leflunomide 10 mg tablet 10 mg PO DAILY 07/10/23 09/07/23 levothyroxine 25 mcg tablet 25 mcg PO DAILY 07/10/23 09/07/23 methylprednisolone 4 mg tablets in 0 mg PO 07/10/23 09/07/23 a dose pack metoprolol succinate 25 mg 25 mg PO DAILY 07/10/23 09/07/23 tablet,extended release 24 hr ofloxacin 0.3 % ear drops drp otic (ear) DAILY 07/10/23 09/07/23 omeprazole 40 mg capsule,delayed 40 mg PO DAILY 07/10/23 09/07/23 release ondansetron 4 mg disintegrating 4 mg PO Q8H PRN 07/10/23 09/07/23 tablet oxcarbazepine 300 mg tablet 300 mg PO BID 07/10/23 09/07/23 potassium chloride 10 mEq 10 meq PO DAILY 07/10/23 09/07/23 tablet,extended release(part/cryst) sodium sul 1.479 gram-potas ch 12 tab PO DIRECTED 07/10/23 09/07/23 0.188 gram-magnes sul 0.225 gram tablet (Sutab) sodium,potassium,mag sulfates 17.5 PO 07/10/23 09/07/23 gram-3.13 gram-1.6 gram oral soln fezolinetant 45 mg tablet (Veozah) 45 mg PO DAILY 09/07/23 09/07/23 glucagon 1 mg/0.2 mL subcutaneous 1 mg SUBCUT ONCE 09/07/23 09/07/23 auto-injector (Alondra Huttonen 2-Pack) tirzepatide 2.5 mg/0.5 mL 2.5 mg SUBCUT QWEEK 09/07/23 09/07/23 subcutaneous pen injector (Juanita) tizanidine 2 mg tablet 4 mg PO BID 09/07/23 09/07/23 Previous Rx's Medication Instructions Recorded losartan 25 mg tablet 25 mg PO DAILY #30 tabs 08/04/21 meclizine 12.5 mg tablet 12.5 mg PO Q6HR PRN Vertigo #20 08/04/21 tabs oxycodone 5 mg tablet 5 mg PO Q4HR PRN Pain, Severe 08/04/21 (7-10) #10 tabs promethazine 25 mg tablet 12.5 mg (1/2 x 25 mg) PO Q6HR PRN 08/04/21 NAUSEA/VOMITING #20 tabs azithromycin 250 mg tablet See Rx Instructions PO .COMPLEX #6 09/14/23 tabs hydrocodone 5 mg-acetaminophen 325 1 tab PO Q6H PRN pain #10 tabs 09/14/23 mg tablet dicyclomine 20 mg tablet 20 mg PO TID PRN abdominal pain 12/15/23 #20 tabs ondansetron 8 mg disintegrating 8 mg PO Q8H PRN nausea and 12/15/23 tablet vomiting #20 tabs oxycodone 5 mg tablet 5 mg PO Q6H PRN pain #10 tabs 01/07/24 oxycodone 5 mg tablet 5 mg PO Q6H PRN pain #10 tabs 01/07/24 oxycodone-acetaminophen 5 mg-325 1 tab PO Q6H PRN pain #20 tabs 01/07/24 mg tablet azithromycin 250 mg tablet 250 mg PO DAILY 64 days #4 tabs 05/12/24 Allergies Allergy/AdvReac Type Severity Reaction Status Date / Time codeine Allergy Severe Rash Verified 12/15/23 15:29 lovastatin [From Advicor] Allergy Severe Anaphylaxis Verified 12/15/23 15:29 niacin [From Advicor] Allergy Severe Anaphylaxis Verified 12/15/23 15:29 pseudoephedrine Allergy Severe Anaphylaxis Verified 12/15/23 15:29 red (food color) Allergy Severe Anaphylaxis Verified 12/15/23 15:29 mushroom Allergy Unknown Verified 12/15/23 15:29 ampicillin Allergy Rash Verified 12/15/23 15:29 barium iodide Allergy Verified 12/15/23 15:29 erythromycin base Allergy Verified 12/15/23 15:29 glatiramer (copolymer 1) Allergy Verified 12/15/23 15:29 interferon beta-1a Allergy itching Verified 12/15/23 15:29 and rash Iodinated Contrast Media Allergy Verified 12/15/23 15:29 lisinopril Allergy Kidneys Verified 12/15/23 15:29 shut down metformin Allergy Gastrointestinal Verified 12/15/23 15:29 Upset Sulfa (Sulfonamide Allergy Verified 12/15/23 15:29 Antibiotics) Penicillins AdvReac Mild Gi Verified 12/15/23 15:29 intolerance artificial sweetners Allergy Uncoded 07/10/23 14:44 Patient History Medical History Psoriasis Eczema Acne Sleep apnea COPD (chronic obstructive pulmonary disease) Asthma Allergies Depression Anxiety Migraines Headache Shoulder pain Osteoporosis Osteopenia Foot pain Chronic back pain Chicken pox Vertigo Ruptured tympanic membrane (~1977) Recurrent sinusitis History of recurrent ear infection Hearing loss Cataracts, bilateral Painful menstrual periods Ovarian cyst Irregular menstrual cycle Heavy menstrual period Fibroids Endometriosis Kidney stones Irritable bowel syndrome GERD (gastroesophageal reflux disease) Gastroparesis Hypertension Dislocation of left patella Fatigue Hypothyroidism Raynauds disease Hyperlipidemia PCOS (polycystic ovarian syndrome) History of shingles Osteoarthritis Obstructive sleep apnea syndrome Diabetic gastroparesis Type 2 diabetes mellitus Chronically low serum potassium Diabetes Low vitamin D level Fibromyalgia Multiple sclerosis Surgical History Anesthesia History of partial hysterectomy (~2015) Hx of cholecystectomy History of repair of anterior cruciate ligament of right knee Family History Family/Other Loud snoring Sleep apnea Depression Dementia Father Loud snoring Sleep apnea Insomnia Restless legs syndrome Obesity Hypertension Heart disease Depression Bipolar disorder Hyperlipidemia Mental health problem Mother Insomnia Hypertension Depression Anxiety Eating disorder Eye disease Heart disease Hyperlipidemia Mental health problem Endometriosis Family/Other Loud snoring Obesity Hypertension Depression Anxiety Sister Eating disorder Heart disease Hypertension Hyperlipidemia Mental health problem Grandfather Cancer Mental health problem Grandmother Alzheimer's disease Hypertension Mental health problem Grandfather Cancer Grandmother Mental health problem Family/Other Freya-Danlos disease Mental health problem H/O autistic disorder Social History marital status: household members: spouse and children Smoking Status: Never smoker alcohol intake: current Smoking Status: Never smoker alcohol intake frequency: holidays/special occasions only Exam Initial Vital Signs Initial Vital Signs: Vital Signs Temperature 98.2 F 05/12/24 12:59 Pulse Rate 94 H 05/12/24 12:59 Respiratory Rate 16 05/12/24 12:59 Blood Pressure 116/58 L 05/12/24 12:59 Pulse Oximetry 94 05/12/24 12:59 Oxygen Delivery Method Room Air 05/12/24 12:59 Const Other: Patient was coughing, appears well speaking in full sentences HENMT HENMT Other: Normocephalic atraumatic Neck Other: Neck is supple Resp Other: Patient cause with inspiration, she has moderate wheezes with good air movement and coarse breath sounds Cardio Other: Heart sounds are normal rate is normal Neuro Other: Alert and oriented Course Orders Ordered: ED Orders 05/12/24 13:05 Covid-19 + FLU A/B + RSV - PCR Stat 05/12/24 14:43 Chest [XR chest 2V] Stat 05/12/24 15:15 CBC Auto Diff [Complete Blood Count AUTO DIFF] Stat CMP [Comprehensive Metabolic Panel] Stat Discontinued Medications Albuterol (Albuterol 1.25 Mg/3 Ml Neb (Pediatric)) 1.25 mg INH NOW ONE Stop: 05/12/24 14:44 Last Admin: 05/12/24 15:25 Dose: 1.25 mg Documented By: SANTIAGO Albuterol/Ipratropium (Albuterol/Ipratropium 3 Ml Ampul) 3 ml INH NOW ONE Stop: 05/12/24 14:04 Last Admin: 05/12/24 14:10 Dose: 3 ml Documented By: SANTIAGO Azithromycin (Azithromycin 250 Mg Tablet) 500 mg PO NOW ONE Stop: 05/12/24 16:25 Reevaluation(s) Reevaluation #1: Patient is feeling better. Has chronic headaches which is unchanged and baseline. We discussed possible infiltrate on chest x-ray and laboratory work. Patient is agreeable to starting antibiotics. Her allergies are somewhat problematic, she specifically tells me she tolerates azithromycin. I have prescribed azithromycin. She does have GI difficulties with amoxicillin. Therefore I will not prescribe amoxicillin. Given her overall well appearance I think it is reasonable to trial 1 antibiotic at this point and re-evaluate. Recommended that she follow up if not improving within 48 hours. She has an appointment coming up with her primary care provider soon. Vital Signs Vital signs: Vital Signs - 8 hr 05/12/24 12:59 05/12/24 13:49 05/12/24 14:00 Temperature 98.2 F Pulse Rate 94 H 93 H 92 H Respiratory Rate 16 Blood Pressure 116/58 L Pulse Oximetry 94 95 91 Oxygen Delivery Method Room Air Room Air 05/12/24 14:11 Temperature Pulse Rate 94 H Respiratory Rate 24 Blood Pressure Pulse Oximetry 92 Oxygen Delivery Method Room Air MDM - URI/Sore Throat Lab Data Lab results narrative: Negative for panel viral PCR. White count is normal, CO2 is actually higher than normal, glucose is 78 03/02/25 15:15 05/12/24 15:15 Labs: Lab Results 05/12/24 05/12/24 Range/Units 13:05 15:15 WBC 9.6 (4.5-11.0) X10^3/uL RBC 4.88 (4.0-5.2) X10^6/uL Hgb 13.5 (12.0-16.0) g/dL Hct 41.3 (36-46) % MCV 84.6 (80-100) fL MCH 27.7 (26-34) PG MCHC 32.7 (30-36) % RDW 15.5 H (11.6-14.8) % Plt Count 259 (150-400) X10^3/uL Neut % (Auto) 60.8 (50-75) % Lymph % (Auto) 29.2 (25-40) % [place] % (Auto) 7.2 (3-14) % Eos % (Auto) 1.7 L (2-4) % Baso % (Auto) 1.1 (0-2) % Neut # (Auto) 5900 (6459-1852) /uL Lymph # (Auto) 2800 (2554-5013) /uL [place] # (Auto) 700 (0-900) /uL Eos # (Auto) 200 (0-450) /uL Baso # (Auto) 100 (0-100) /uL Sodium 139 (137-145) mmol/L Potassium 4.0 (3.4-5.1) mmol/L Chloride 103 (98-107) mmol/L Carbon Dioxide 28 (22-32) mmol/L BUN 9 (7-17) mg/dL Creatinine 0.98 (0.52-1.04) mg/dL Estimated GFR > 60 (>60) mL/min BUN/Creatinine Ratio 9.2 (6-22) Glucose 78 (70-100) mg/dL Calcium 9.2 (8.4-10.2) mg/dL Total Bilirubin 0.4 (0.2-1.3) mg/dL AST 23 (14-36) IU/L ALT 20 (<35) IU/L Alkaline Phosphatase 87 (38-126) U/L Total Protein 6.8 (6.3-8.2) g/dL Albumin 4.1 (3.5-5.0) g/dL Globulin 2.7 (1.7-4.1) g/dL Albumin/Globulin Ratio 1.5 (1.0-2.8) SARS-CoV-2 (PCR) Negative (Negative) Influenza A (RT-PCR) Flu a negative (NEGATIVE) Influenza B (RT-PCR) Flu b negative (NEGATIVE) RSV (PCR) Negative (Negative) Imaging Data Chest x-ray: My Impression: Independent review of chest x-ray, no dense infiltrate appreciated has an abnormal cardiomediastinal silhouette which appears to be baseline Radiologist's Impression: [address] [address] XRay Report Signed Patient: Josie Silvestre MR#: [id number] : 1975 Acct:[id number] Age/Sex: 48 / F Date of Service: 05/12/24 Loc: ED Accession Number: [id number] Procedure: XR chest 2V Ordering Provider: Lenny Hawley MD PROCEDURE: XR CHEST 2V INDICATIONS: dyspnea TECHNIQUE: 2 views of the chest were acquired. COMPARISON: [facility], , XR CHEST 1V, 04/20/2022, 19:07. FINDINGS: Surgical changes and devices: None. Lungs and pleura: Lungs are clear. No pleural effusions or pneumothorax. Mediastinum: Mediastinal contours are normal. Heart size is enlarged. Bones and chest wall: No suspicious bony abnormalities. Soft tissues appear unremarkable. IMPRESSION: Right upper lobe patchy infiltrate Cardiomegaly without vascular congestion Approved by: Bhargav Martinez M.D. on 05/12/2024 at 14:40 MDM Narrative Medical decision making narrative: 40-year-old female with a history of asthma and type 1 diabetes presenting with nasal congestion and cough and shortness of breath. She has not having chest pain, she does not appear to be septic she has not febrile and does not have an oxygen requirement. Labs are reassuring with no leukocytosis. On chest x-ray there is questionable infiltrate, she was improved with albuterol nebulized and I considered steroids but given her diabetes preferred not to and the patient was in agreement with this. I started her on azithromycin, she has numerous allergies and intolerances to medications, at this point we are going to start with 1 antibiotic and escalate if necessary. Workup today does not support diabetic ketoacidosis and does not appear to be excessively dehydrated she is able to hydrate orally. Discharge Plan Departure Patient Disposition: Home Clinical Impression: Acute rhinitis Pneumonia Qualifiers: Pneumonia type: due to unspecified organism Laterality: right Lung location: upper lobe of lung Qualified Code(s): J18.9 - Pneumonia, unspecified organism Asthma exacerbation Qualifiers: Asthma severity: moderate Asthma persistence: unspecified Qualified Code(s): J45.901 - Unspecified asthma with (acute) exacerbation Activity Restrictions/Additional Instructions: Emergency department workup today is reassuring. I think it is safe for you to go home. It is possible you are developing a pneumonia based on the chest x-ray and I have started azithromycin for this. Continue with her albuterol as needed, you can use nasal steroids and nasal saline solution for your congestion. Continue with ibuprofen and/or acetaminophen as needed for headaches and body aches. I expect that you should be improving within 48 hours, if not recheck or see your primary care provider soon. Return to the emergency department immediately if you are having increasing shortness of breath or other acute symptoms Prescriptions: New azithromycin 250 mg tablet 250 mg PO DAILY 64 Days Qty: 4 0RF Rx Instructions: start on day 2 of therapy No Action atorvastatin [Lipitor] 20 mg tablet 20 mg PO BEDTIME amitriptyline 10 mg tablet 10 mg PO ONCE PM omeprazole 40 mg capsule,delayed release(DR/EC) 40 mg PO DAILY metoprolol succinate 25 mg tablet extended release 24 hr 25 mg PO DAILY ergocalciferol (vitamin D2) 1,250 mcg (50,000 unit) capsule 1,250 mcg PO Humalog KwikPen Insulin 200 unit/mL (3 mL) insulin pen SUBCUT Patient Comments: [NO ORIGINAL SIG] clindamycin phosphate 1 % solution topical estradiol 0.05 mg/24 hr patch semiweekly 1 patch transdermal 2XW methylprednisolone 4 mg tablets,dose pack 0 mg PO albuterol sulfate 2.5 mg /3 mL (0.083 %) solution for nebulization inhalation cyanocobalamin (vitamin B-12) 1,000 mcg/mL solution 1,000 mcg IM MONTHLY clobetasol 0.05 % ointment topical leflunomide 10 mg tablet 10 mg PO DAILY erythromycin 5 mg/gram (0.5 %) ointment EYE-BOTH Sutab 1.479-0.188- 0.225 gram tablet 12 tab PO DIRECTED ofloxacin 0.3 % drops otic (ear) DAILY potassium chloride 10 mEq tablet,ER particles/crystals 10 meq PO DAILY amlodipine 10 mg tablet 10 mg PO DAILY levothyroxine 25 mcg tablet 25 mcg PO DAILY sodium,potassium,mag sulfates 17.5-3.13-1.6 gram recon soln PO gabapentin 100 mg capsule PO diazepam 5 mg tablet 5 mg PO DAILY PRN alprazolam 0.25 mg tablet 0.25 mg PO DAILY alprazolam 0.5 mg tablet 0.5 mg PO DAILY ondansetron 4 mg tablet,disintegrating 4 mg PO Q8H PRN ketoconazole 2 % cream topical oxcarbazepine 300 mg tablet 300 mg PO BID dexamethasone 1 mg tablet 1 mg PO ONCE fluconazole 150 mg tablet PO clobetasol 0.05 % shampoo 1 applic topical clindamycin phosphate 1 % lotion 1 applic topical BID (DME) [employer] G6 Sensor Device See Rx Instructions .ROUTE Q10D Qty: 1 Rx Instructions: As directed tizanidine 2 mg tablet 4 mg PO BID oxycodone 5 mg tablet 5 mg PO Q6H PRN (Reason: pain) Qty: 10 0RF oxycodone 5 mg tablet 5 mg PO Q6H PRN (Reason: pain) Qty: 10 0RF oxycodone-acetaminophen 5-325 mg tablet 1 tab PO Q6H PRN (Reason: pain) Qty: 20 0RF levothyroxine 200 mcg tablet 200 mcg PO DAILY topiramate 100 mg tablet 100 mg PO DAILY zolpidem 5 mg tablet 5 mg PO BEDTIME PRN (Reason: Insomnia) Patient Comments: TK 1 T PO AT NIGHT PRF INSOMNIA baclofen 10 mg tablet 20 mg PO BID PRN (Reason: Pain (Scale Score 1-3)) insulin aspart U-100 100 unit/mL (3 mL) insulin pen See Rx Instructions .ROUTE .COMPLEX Patient Comments: ADM 30 UNI SC TID WC Rx Instructions: has insulin pump. takes 1 unit of insulin per every 2 carbs. ibuprofen 800 mg tablet 600 mg PO Q8H PRN (Reason: pain) trazodone 50 mg Tablet 50 mg PO BEDTIME Rx Instructions: take one to two tablets at bed time up to 100mg by mouth potassium chloride 10 mEq Tablet Extended Release 30 meq PO DAILY leflunomide 20 mg Tablet 20 mg PO DAILY montelukast 10 mg Tablet 10 mg PO DAILY triamterene-hydrochlorothiazid 75-50 mg Tablet 1 tab PO DAILY meclizine 12.5 mg Tablet 12.5 mg PO Q6HR PRN (Reason: Vertigo) Qty: 20 0RF promethazine 25 mg Tablet 12.5 mg PO Q6HR PRN (Reason: NAUSEA/VOMITING) Qty: 20 0RF losartan 25 mg Tablet 25 mg PO DAILY Qty: 30 0RF oxycodone 5 mg Tablet 5 mg PO Q4HR PRN (Reason: Pain, Severe (7-10)) Qty: 10 0RF azithromycin 250 mg tablet See Rx Instructions PO .COMPLEX Qty: 6 0RF Rx Instructions: For 250 mg dose pack: take 500 mg today (day 1), then 250 mg for 4 days (days 2-5) hydrocodone-acetaminophen 5-325 mg tablet 1 tab PO Q6H PRN (Reason: pain) Qty: 10 0RF ondansetron 8 mg tablet,disintegrating 8 mg PO Q8H PRN (Reason: nausea and vomiting) Qty: 20 0RF dicyclomine 20 mg tablet 20 mg PO TID PRN (Reason: abdominal pain) Qty: 20 0RF Gvoke HypoPen 2-Pack 1 mg/0.2 mL auto-injector 1 mg SUBCUT ONCE Rx Instructions: as a single dose; may repeat once after 15 minutes if no response Mounjaro 2.5 mg/0.5 mL pen injector 2.5 mg SUBCUT QWEEK Veozah 45 mg tablet 45 mg PO DAILY furosemide [Lasix] 20 mg tablet 20 mg PO Q OTHER DAY doxycycline hyclate 100 mg capsule 100 mg PO BID Referrals: Ankur Joseph DO [Primary Care Provider] - Stand Alone Forms: Patient Portal/API/Survey
[2024-05-12 15:22] LABS: Add Manual Diff / Slide Review NO; Basophils Absolute Auto 100 /uL (0-100); Basophils Percent Auto 1.1 % (0-2); Eosinophils Absolute Auto 200 /uL (0-450); Eosinophils Percent Auto 1.7 % (2-4); Hematocrit 41.3 % (36-46); Hemoglobin 13.5 g/dL (12.0-16.0); Lymphocytes Absolute Auto 2800 /uL (1100-4500); Lymphocytes Percent Auto 29.2 % (25-40); Mean Corpuscular HGB Conc 32.7 % (30-36); Mean Corpuscular Hemoglobin 27.7 PG (26-34); Mean Corpuscular Volume 84.6 fL (80-100); Monocytes Absolute Auto 700 /uL (0-900); Monocytes Percent Auto 7.2 % (3-14); Neutrophils Absolute Auto 5900 /uL (1500-7000); Neutrophils Percent Auto 60.8 % (50-75); Platelet Count 259 X10^3/uL (150-400); Red Blood Cell Count 4.88 X10^6/uL (4.0-5.2); Red Cell Distribution Width 15.5 % (11.6-14.8); White Blood Cell Count 9.6 X10^3/uL (4.5-11.0)
[2024-05-12] MEDS: ALBUTEROL 1.25 MG/3 ML NEB (PEDIATRIC) INH (15:25)
[2024-05-12 15:33] LABS: Alanine Aminotransferase 20 IU/L (<35); Albumin 4.1 g/dL (3.5-5.0); Albumin Globulin Ratio 1.5 (1.0-2.8); Alkaline Phosphatase 87 U/L (38-126); Aspartate Aminotransferase 23 IU/L (14-36); BUN Creatinine Ratio 9.2 (6-22); Bilirubin Total 0.4 mg/dL (0.2-1.3); Blood Urea Nitrogen 9 mg/dL (7-17); Calcium 9.2 mg/dL (8.4-10.2); Carbon Dioxide 28 mmol/L (22-32); Chloride 103 mmol/L (98-107); Estimated Glomerular Filt Rate > 60 mL/min (>60); Globulin 2.7 g/dL (1.7-4.1); Glucose 78 mg/dL (70-100); HEMOLYSIS < 15 (0-50); Sodium 139 mmol/L (137-145); Total Protein 6.8 g/dL (6.3-8.2)
[2024-05-12] MEDS: AZITHROMYCIN 250 MG TABLET 500 MG PO (16:44)
[2024-05-12 16:48] VITALS: BP 127/64; PULSE 88; RESP 20; TEMP 37.1; O2SAT 98
== END 2024-05-12 16:49 | disposition home or self-care (01) ==
PROVIDERS: Emergency Medicine; Emergency Provider Emergency Medicine; PCP Internal Medicine
DX: J18.9 Pneumonia, unspecified organism (principal); J45.901 Unspecified asthma with (acute) exacerbation; J00 Acute nasopharyngitis [common cold]; R51.9 Headache, unspecified; R11.0 Nausea
CPT/HCPCS: 0241U; 71046; 80053; 85025; 94640; 99283; 99284; J7613

== ENCOUNTER 2024-06-18 12:28 | Emergency (ER) | payer MEDICARE, OTHER, SELFPAY ==
[2023-01-17 15:03] VITALS: BMI 45.2
[2024-06-18] VITALS (15 sets, daily range): BP systolic 135–210; BP diastolic 67–94; PULSE 75–96; RESP 18; TEMP 36.1–36.9; O2SAT 96–99; BMI 45.3
[2024-06-18 13:11] LABS: Add Manual Diff / Slide Review NO; Basophils Absolute Auto 100 /uL (0-100); Basophils Percent Auto 0.8 % (0-2); Eosinophils Absolute Auto 100 /uL (0-450); Eosinophils Percent Auto 0.6 % (2-4); Hematocrit 40.6 % (36-46); Hemoglobin 13.2 g/dL (12.0-16.0); Lymphocytes Absolute Auto 4600 /uL (1100-4500); Lymphocytes Percent Auto 27.8 % (25-40); Mean Corpuscular HGB Conc 32.6 % (30-36); Mean Corpuscular Hemoglobin 27.7 PG (26-34); Mean Corpuscular Volume 85.1 fL (80-100); Monocytes Absolute Auto 900 /uL (0-900); Monocytes Percent Auto 5.3 % (3-14); Neutrophils Absolute Auto 10800 /uL (1500-7000); Neutrophils Percent Auto 65.5 % (50-75); Platelet Count 241 X10^3/uL (150-400); Red Blood Cell Count 4.78 X10^6/uL (4.0-5.2); Red Cell Distribution Width 16.3 % (11.6-14.8); White Blood Cell Count 16.4 X10^3/uL (4.5-11.0)
[2024-06-18 13:21] LABS: Alanine Aminotransferase 26 IU/L (<35); Albumin 3.8 g/dL (3.5-5.0); Albumin Globulin Ratio 1.5 (1.0-2.8); Alkaline Phosphatase 77 U/L (38-126); Aspartate Aminotransferase 20 IU/L (14-36); BUN Creatinine Ratio 25.5 (6-22); Bilirubin Total 0.3 mg/dL (0.2-1.3); Blood Urea Nitrogen 24 mg/dL (7-17); Calcium 9.4 mg/dL (8.4-10.2); Carbon Dioxide 29 mmol/L (22-32); Chloride 104 mmol/L (98-107); Estimated Glomerular Filt Rate > 60 mL/min (>60); Globulin 2.5 g/dL (1.7-4.1); Glucose 159 mg/dL (70-100); HEMOLYSIS 21 (0-50); Potassium 3.6 mmol/L (3.4-5.1); Sodium 139 mmol/L (137-145); Total Protein 6.3 g/dL (6.3-8.2)
--- NOTE | 2024-06-18 18:14 | ED.RECABL ---
HPI - Recheck/Abnormal Lab/Rx General Chief Complaint: Recheck/Abnormal Lab/Rx Stated Complaint: sent by denise Del Rio labs Time Seen by Provider: 06/18/24 18:14 History of Present Illness HPI narrative: 49-year-old female with a past medical history of hyperlipidemia diabetes, hypertension, hypothyroidism, comes into the ED from home for evaluation of abnormal lab results. According to the patient she had lab results drawn and she had an elevated WBC. To note she states that she is currently on antibiotics, cefdinir and Keflex for possible ear infection, she also is stating that she has noticed some drainage from her belly button. Denies any other symptoms such as headache visual disturbances chest pain shortness breath fever chills nausea vomiting or any other GI/ symptoms at this time. Related Data Home Medications Medication Instructions Recorded Confirmed levothyroxine 200 mcg tablet 200 mcg PO DAILY 02/07/18 09/07/23 topiramate 100 mg tablet 100 mg PO DAILY 02/07/18 09/07/23 zolpidem 5 mg tablet 5 mg PO BEDTIME PRN Insomnia 02/07/18 09/07/23 insulin aspart U-100 100 unit/mL See Rx Instructions .Route .COMPLEX 08/20/18 09/07/23 (3 mL) subcutaneous pen ibuprofen 800 mg tablet 600 mg PO Q8H PRN pain 08/14/19 09/07/23 trazodone 50 mg tablet 50 mg PO BEDTIME 08/14/19 09/07/23 potassium chloride 10 mEq 30 meq PO DAILY 11/18/19 09/07/23 tablet,extended release leflunomide 20 mg tablet 20 mg PO DAILY 08/03/21 09/07/23 montelukast 10 mg tablet 10 mg PO DAILY 08/03/21 09/07/23 triamterene 75 1 tab PO DAILY 08/03/21 09/07/23 mg-hydrochlorothiazide 50 mg tablet furosemide 20 mg tablet (Lasix) 20 mg PO Q OTHER DAY 01/17/23 09/07/23 doxycycline hyclate 100 mg capsule 100 mg PO BID 02/16/23 09/07/23 albuterol sulfate 2.5 mg/3 mL mg inhalation 07/10/23 09/07/23 (0.083 %) solution for nebulization alprazolam 0.25 mg tablet 0.25 mg PO DAILY 07/10/23 09/07/23 alprazolam 0.5 mg tablet 0.5 mg PO DAILY 07/10/23 09/07/23 amitriptyline 10 mg tablet 10 mg PO ONCE PM 07/10/23 09/07/23 amlodipine 10 mg tablet 10 mg PO DAILY 07/10/23 09/07/23 atorvastatin 20 mg tablet (Lipitor) 20 mg PO BEDTIME 07/10/23 09/07/23 baclofen 10 mg tablet 20 mg PO BID PRN Pain (Scale Score 07/10/23 09/07/23 1-3) blood-glucose sensor ([employer] G6 #1 ea 07/10/23 09/07/23 Sensor device) clindamycin phosphate 1 % lotion 1 applic topical BID 07/10/23 09/07/23 clindamycin phosphate 1 % topical topical 07/10/23 09/07/23 solution clobetasol 0.05 % shampoo 1 applic topical 07/10/23 09/07/23 clobetasol 0.05 % topical ointment topical 07/10/23 09/07/23 cyanocobalamin (vitamin B-12) 1,000 mcg IM MONTHLY 07/10/23 09/07/23 1,000 mcg/mL injection solution dexamethasone 1 mg tablet 1 mg PO ONCE 07/10/23 09/07/23 diazepam 5 mg tablet 5 mg PO DAILY PRN 07/10/23 09/07/23 ergocalciferol (vitamin D2) 1,250 1,250 mcg PO 07/10/23 09/07/23 mcg (50,000 unit) capsule erythromycin 5 mg/gram (0.5 %) eye EYE-BOTH 07/10/23 09/07/23 ointment estradiol 0.05 mg/24 hr semiweekly 1 patch transdermal 2XW 07/10/23 09/07/23 transdermal patch fluconazole 150 mg tablet mg PO 07/10/23 09/07/23 gabapentin 100 mg capsule mg PO 07/10/23 09/07/23 insulin lispro 200 unit/mL (3 mL) SUBCUT 07/10/23 09/07/23 subcutaneous pen (Humalog KwikPen U-200 Insulin) ketoconazole 2 % topical cream applic topical 07/10/23 09/07/23 leflunomide 10 mg tablet 10 mg PO DAILY 07/10/23 09/07/23 levothyroxine 25 mcg tablet 25 mcg PO DAILY 07/10/23 09/07/23 methylprednisolone 4 mg tablets in 0 mg PO 07/10/23 09/07/23 a dose pack metoprolol succinate 25 mg 25 mg PO DAILY 07/10/23 09/07/23 tablet,extended release 24 hr ofloxacin 0.3 % ear drops drp otic (ear) DAILY 07/10/23 09/07/23 omeprazole 40 mg capsule,delayed 40 mg PO DAILY 07/10/23 09/07/23 release ondansetron 4 mg disintegrating 4 mg PO Q8H PRN 07/10/23 09/07/23 tablet oxcarbazepine 300 mg tablet 300 mg PO BID 07/10/23 09/07/23 potassium chloride 10 mEq 10 meq PO DAILY 07/10/23 09/07/23 tablet,extended release(part/cryst) sodium sul 1.479 gram-potas ch 12 tab PO DIRECTED 07/10/23 09/07/23 0.188 gram-magnes sul 0.225 gram tablet (Sutab) sodium,potassium,mag sulfates 17.5 PO 07/10/23 09/07/23 gram-3.13 gram-1.6 gram oral soln fezolinetant 45 mg tablet (Veozah) 45 mg PO DAILY 09/07/23 09/07/23 glucagon 1 mg/0.2 mL subcutaneous 1 mg SUBCUT ONCE 09/07/23 09/07/23 auto-injector (Alondra Peterson 2-Pack) tirzepatide 2.5 mg/0.5 mL 2.5 mg SUBCUT QWEEK 09/07/23 09/07/23 subcutaneous pen injector (Juanita) tizanidine 2 mg tablet 4 mg PO BID 09/07/23 09/07/23 Previous Rx's Medication Instructions Recorded losartan 25 mg tablet 25 mg PO DAILY #30 tabs 08/04/21 meclizine 12.5 mg tablet 12.5 mg PO Q6HR PRN Vertigo #20 08/04/21 tabs oxycodone 5 mg tablet 5 mg PO Q4HR PRN Pain, Severe 08/04/21 (7-10) #10 tabs promethazine 25 mg tablet 12.5 mg (1/2 x 25 mg) PO Q6HR PRN 08/04/21 NAUSEA/VOMITING #20 tabs azithromycin 250 mg tablet See Rx Instructions PO .COMPLEX #6 09/14/23 tabs hydrocodone 5 mg-acetaminophen 325 1 tab PO Q6H PRN pain #10 tabs 09/14/23 mg tablet dicyclomine 20 mg tablet 20 mg PO TID PRN abdominal pain 12/15/23 #20 tabs ondansetron 8 mg disintegrating 8 mg PO Q8H PRN nausea and 12/15/23 tablet vomiting #20 tabs oxycodone 5 mg tablet 5 mg PO Q6H PRN pain #10 tabs 01/07/24 oxycodone 5 mg tablet 5 mg PO Q6H PRN pain #10 tabs 01/07/24 oxycodone-acetaminophen 5 mg-325 1 tab PO Q6H PRN pain #20 tabs 01/07/24 mg tablet albuterol sulfate 90 mcg/actuation 2 puff inhalation QID PRN 05/12/24 aerosol inhaler shortness of breath or wheezing #8.5 grams azithromycin 250 mg tablet 250 mg PO DAILY 64 days #4 tabs 05/12/24 Allergies Allergy/AdvReac Type Severity Reaction Status Date / Time codeine Allergy Severe Rash Verified 12/15/23 15:29 lovastatin [From Advicor] Allergy Severe Anaphylaxis Verified 12/15/23 15:29 niacin [From Advicor] Allergy Severe Anaphylaxis Verified 12/15/23 15:29 pseudoephedrine Allergy Severe Anaphylaxis Verified 12/15/23 15:29 red (food color) Allergy Severe Anaphylaxis Verified 12/15/23 15:29 mushroom Allergy Unknown Verified 12/15/23 15:29 ampicillin Allergy Rash Verified 12/15/23 15:29 barium iodide Allergy Verified 12/15/23 15:29 erythromycin base Allergy Verified 12/15/23 15:29 glatiramer (copolymer 1) Allergy Verified 12/15/23 15:29 interferon beta-1a Allergy itching Verified 12/15/23 15:29 and rash Iodinated Contrast Media Allergy Verified 12/15/23 15:29 lisinopril Allergy Kidneys Verified 12/15/23 15:29 shut down metformin Allergy Gastrointestinal Verified 12/15/23 15:29 Upset Sulfa (Sulfonamide Allergy Verified 12/15/23 15:29 Antibiotics) Penicillins AdvReac Mild Gi Verified 12/15/23 15:29 intolerance artificial sweetners Allergy Uncoded 07/10/23 14:44 Review of Systems Review of Systems Narrative: General: Abnormal lab work, elevated WBC Denies fever, chills, weight loss HEENT: Denies headache, eye drainage, eye irritation, head trauma, sore throat, voice change Cardiovascular: Denies any chest pain, palpitations, tachycardia Respiratory: Denies any shortness of breath, cough, wheeze, stridor GI/: Positive belly button drainage, Denies any abdominal pain, nausea, vomiting, diarrhea, bright red blood per rectum, melanotic stools, urinary frequency, urinary retention, dysuria, hematuria MSK: Denies any joint pain, muscle pains, swelling Skin: Denies any rashes, lesions, discoloration Neuro: Denies any headache, lightheadedness, dizziness, fainting, weakness Psych: Denies SI/HI Patient History Medical History Psoriasis Eczema Acne Sleep apnea COPD (chronic obstructive pulmonary disease) Asthma Allergies Depression Anxiety Migraines Headache Shoulder pain Osteoporosis Osteopenia Foot pain Chronic back pain Chicken pox Vertigo Ruptured tympanic membrane (~1977) Recurrent sinusitis History of recurrent ear infection Hearing loss Cataracts, bilateral Painful menstrual periods Ovarian cyst Irregular menstrual cycle Heavy menstrual period Fibroids Endometriosis Kidney stones Irritable bowel syndrome GERD (gastroesophageal reflux disease) Gastroparesis Hypertension Dislocation of left patella Fatigue Hypothyroidism Raynauds disease Hyperlipidemia PCOS (polycystic ovarian syndrome) History of shingles Osteoarthritis Obstructive sleep apnea syndrome Diabetic gastroparesis Type 2 diabetes mellitus Chronically low serum potassium Diabetes Low vitamin D level Fibromyalgia Multiple sclerosis Surgical History Anesthesia History of partial hysterectomy (~2015) Hx of cholecystectomy History of repair of anterior cruciate ligament of right knee Family History Family/Other Loud snoring Sleep apnea Depression Dementia Father Loud snoring Sleep apnea Insomnia Restless legs syndrome Obesity Hypertension Heart disease Depression Bipolar disorder Hyperlipidemia Mental health problem Mother Insomnia Hypertension Depression Anxiety Eating disorder Eye disease Heart disease Hyperlipidemia Mental health problem Endometriosis Family/Other Loud snoring Obesity Hypertension Depression Anxiety Sister Eating disorder Heart disease Hypertension Hyperlipidemia Mental health problem Grandfather Cancer Mental health problem Grandmother Alzheimer's disease Hypertension Mental health problem Grandfather Cancer Grandmother Mental health problem Family/Other Freya-Danlos disease Mental health problem H/O autistic disorder Social History marital status: household members: spouse and children Smoking Status: Never smoker alcohol intake: current Smoking Status: Never smoker alcohol intake frequency: holidays/special occasions only Exam Initial Vital Signs Initial Vital Signs: Vital Signs Temperature 97.0 F L 06/18/24 12:44 Pulse Rate 75 06/18/24 12:44 Respiratory Rate 18 06/18/24 12:44 Blood Pressure 153/68 H 06/18/24 12:44 Pulse Oximetry 97 06/18/24 12:44 Oxygen Delivery Method Room Air 06/18/24 12:44 Course Orders Ordered: ED Orders 06/18/24 18:35 CT abdomen pelvis wo con Stat CT mastoid temporal Stat 06/18/24 18:38 CXR [XR chest 1V] Stat 06/18/24 19:05 Blood Culture Stat Covid-19 + FLU A/B + RSV - PCR Stat Lipase Stat MAG [Magnesium] Stat 06/18/24 22:58 CBC Auto Diff [Complete Blood Count AUTO DIFF] Stat Discontinued Medications Sodium Chloride (Normal Saline 0.9%) 1,000 mls @ 1,000 mls/hr IV BOLUS ONE Stop: 06/18/24 19:34 Last Infusion: 06/18/24 21:17 Dose: Infused Documented By: Admin: 06/18/24 18:54 Dose: 1,000 mls/hr Documented By: Sodium Chloride (Normal Saline 0.9%) 1,000 mls @ 1,000 mls/hr IV BOLUS ONE Stop: 06/18/24 22:41 Last Infusion: 06/18/24 22:51 Dose: Infused Documented By: Admin: 06/18/24 21:56 Dose: 1,000 mls/hr Documented By: Vital Signs Vital signs: Vital Signs - 8 hr 06/18/24 17:16 06/18/24 19:02 06/18/24 19:02 Temperature 98.4 F Pulse Rate 89 91 H Respiratory Rate 18 Blood Pressure 150/87 H 210/88 H Pulse Oximetry 98 99 Oxygen Delivery Method Room Air 06/18/24 19:30 06/18/24 19:31 06/18/24 19:31 Temperature Pulse Rate 93 H 92 H Respiratory Rate Blood Pressure 150/67 H Pulse Oximetry 97 99 Oxygen Delivery Method 06/18/24 20:03 06/18/24 20:30 06/18/24 21:00 Temperature Pulse Rate 96 H 86 86 Respiratory Rate Blood Pressure Pulse Oximetry 97 97 96 Oxygen Delivery Method 06/18/24 21:25 06/18/24 21:30 06/18/24 21:31 Temperature Pulse Rate 92 H Respiratory Rate Blood Pressure 145/94 H 167/73 H Pulse Oximetry 98 Oxygen Delivery Method 06/18/24 21:31 06/18/24 22:00 06/18/24 22:00 Temperature Pulse Rate 90 88 Respiratory Rate 18 Blood Pressure 151/69 H Pulse Oximetry 99 98 Oxygen Delivery Method 06/18/24 22:30 06/18/24 22:30 06/18/24 23:00 Temperature Pulse Rate 88 Respiratory Rate Blood Pressure 162/73 H 135/85 Pulse Oximetry 98 Oxygen Delivery Method 06/18/24 23:00 06/18/24 23:30 06/18/24 23:30 Temperature Pulse Rate 87 87 Respiratory Rate Blood Pressure 139/67 Pulse Oximetry 98 96 Oxygen Delivery Method Room Air 06/19/24 00:00 06/19/24 00:00 06/19/24 00:30 Temperature Pulse Rate 90 87 Respiratory Rate Blood Pressure 138/63 Pulse Oximetry 97 96 Oxygen Delivery Method 06/19/24 00:30 Temperature Pulse Rate Respiratory Rate 18 Blood Pressure 130/72 Pulse Oximetry Oxygen Delivery Method MDM - Recheck/Abnormal Lab/Rx Lab Data 06/18/24 22:58 06/18/24 12:55 Labs: Lab Results 06/18/24 06/18/24 06/18/24 Range/Units 12:55 19:05 22:58 WBC 16.4 H 13.7 H (4.5-11.0) X10^3/uL RBC 4.78 4.54 (4.0-5.2) X10^6/uL Hgb 13.2 12.4 (12.0-16.0) g/dL Hct 40.6 38.8 (36-46) % MCV 85.1 85.5 (80-100) fL MCH 27.7 27.3 (26-34) PG MCHC 32.6 31.9 (30-36) % RDW 16.3 H 16.0 H (11.6-14.8) % Plt Count 241 274 (150-400) X10^3/uL Neut % (Auto) 65.5 50.8 (50-75) % Lymph % (Auto) 27.8 41.5 H (25-40) % [place]pine % (Auto) 5.3 5.8 (3-14) % Eos % (Auto) 0.6 L 1.1 L (2-4) % Baso % (Auto) 0.8 0.8 (0-2) % Neut # (Auto) 30010 H 6900 (8451-5749) /uL Lymph # (Auto) 4600 H 5700 H (6666-1992) /uL Alpine # (Auto) 900 800 (0-900) /uL Eos # (Auto) 100 100 (0-450) /uL Baso # (Auto) 100 100 (0-100) /uL Sodium 139 (137-145) mmol/L Potassium 3.6 (3.4-5.1) mmol/L Chloride 104 (98-107) mmol/L Carbon Dioxide 29 (22-32) mmol/L BUN 24 H (7-17) mg/dL Creatinine 0.94 (0.52-1.04) mg/dL Estimated GFR > 60 (>60) mL/min BUN/Creatinine Ratio 25.5 H (6-22) Glucose 159 H (70-100) mg/dL Calcium 9.4 (8.4-10.2) mg/dL Magnesium 1.8 (1.6-2.3) mg/dL Total Bilirubin 0.3 (0.2-1.3) mg/dL AST 20 (14-36) IU/L ALT 26 (<35) IU/L Alkaline Phosphatase 77 (38-126) U/L Total Protein 6.3 (6.3-8.2) g/dL Albumin 3.8 (3.5-5.0) g/dL Globulin 2.5 (1.7-4.1) g/dL Albumin/Globulin Ratio 1.5 (1.0-2.8) Lipase 30 (23-300) U/L SARS-CoV-2 (PCR) Negative (Negative) Influenza A (RT-PCR) Flu a negative (NEGATIVE) Influenza B (RT-PCR) Flu b negative (NEGATIVE) RSV (PCR) Negative (Negative) Point of Care Testing Glucose POC 98 Urine Dip Bedside Urine Glucose Negative Bedside Urine Bilirubin - Negative Bedside Urine Ketone - Negative Urine Specific [place] 1.015 Bedside Urine Occult Blood - Negative Bedside Urine pH 6.0 Bedside Urine Protein - Negative Bedside Urine Urobilinogen - Negative Bedside Urine Nitrite - Negative Bedside Urine Leukocytes - Negative Esterase Imaging Data CT scan - abdomen/pelvis: Radiologist's Impression: [address] [address] [address] Scan Report Signed Patient: Josie Silvestre MR#: [id number] : 1975 Acct:[id number] Age/Sex: 49 / F Date of Service: 06/18/24 Loc: ED Accession Number: [id number] Procedure: CT abdomen pelvis wo con Ordering Provider: Pritesh Brito D.O. PROCEDURE: CT ABDOMEN PELVIS WO CON INDICATIONS: patient worried about previous umbilical mesh problem TECHNIQUE: Axial sections were acquired from the lung bases to the pubic symphysis. Coronal and sagittal reformats were performed. For radiation dose reduction, the following was used: automated exposure control, adjustment of mA and/or kV according to patient size. COMPARISON: [facility], CT, CT ANGIO ABD AORTA RUNOFF, 01/07/2024, 1:35. [facility], CT, CT ABDOMEN PELVIS WITHOUT CONTRAST, 04/11/2023, 17:56. FINDINGS: Image quality: Diagnostic. Lower Chest: Trace pericardial effusion, unchanged. URINARY: Right Kidney: No stones or hydronephrosis. Right Ureter: No hydroureter. Left Kidney: No stones or hydronephrosis. Left Ureter: No hydroureter. Bladder: Normal wall thickness. No stones. ABDOMEN: Liver: No contour-deforming solid mass. Steatosis. Gallbladder: Removed. Biliary ducts: No biliary dilation. Pancreas: No ductal dilation. Spleen: Size is within normal limits. Adrenal Glands: No adrenal nodules. Stomach and Bowel: Normal colonic caliber, without significant wall thickening. Peritoneum: No abnormal intraperitoneal fluid. No free air. Ventral Wall: Stable appearance the umbilical region without visualized hernia. Generalized inflammatory change is present at the level of pannus without abscess an overall relatively stable. Abdominal Nodes: No enlarged retroperitoneal or mesenteric lymph nodes. Vessels: Aorta and inferior vena cava are normal in size. PELVIS: Pelvic Organs: Unremarkable. Pelvic Nodes: Unremarkable. Miscellaneous: No inguinal hernias are seen. 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 Bones: Unremarkable. IMPRESSION: No visualized ventral hernia. Cholecystectomy. Chest x-ray: Radiologist's Impression: [place] [address] XRay Report Signed Patient: Josie Silvestre MR#: [id number] : 1975 Acct:[id number] Age/Sex: 49 / F Date of Service: 06/18/24 Loc: ED Accession Number: [id number] Procedure: XR chest 1V Ordering Provider: Pritesh Brito D.O. PROCEDURE: XR CHEST 1V INDICATIONS: elevated WBC TECHNIQUE: One view of the chest was acquired. COMPARISON: [facility], , XR CHEST 2V, 05/12/2024, 14:49. FINDINGS: Surgical changes and devices: None. Lungs and pleura: Lungs are clear. No pleural effusions or pneumothorax. Mediastinum: Mediastinal contours appear normal. Heart size is enlarged. Bones and chest wall: No suspicious bony lesions. Overlying soft tissues appear unremarkable. IMPRESSION: Cardiomegaly. No acute cardiopulmonary pathology. CT head/mastoid: Radiologist's Impression: [place] [address] CT Scan Report Signed Patient: Josie Silvestre MR#: [id number] : 1975 Acct:[id number] Age/Sex: 49 / F Date of Service: 06/18/24 Loc: ED Accession Number: [id number] Procedure: CT mastoid temporal Ordering Provider: Pritesh Brito D.O. PROCEDURE: CT MASTOID TEMPORAL INDICATIONS: patient with history of ear infection with tube COMPARISON: None. TECHNIQUE: Noncontrast 0.6 mm thick axial sections acquired through each temporal bone separately. Coronal images are reformatted. FINDINGS: Image quality: Excellent. RIGHT: External auditory canal: Canal has a normal appearance. Middle ear: The middle ear structures, including the ossicles and tympanic membrane, appear normal. No abnormal fluid or soft tissue density. Inner ear: Inner ear is normally formed and appears unremarkable. Facial nerve appears normal throughout is course. Mastoids: Mastoid air cells are clear. LEFT: External auditory canal: Canal has a normal appearance. Middle ear: The middle ear structures, including the ossicles and tympanic membrane, appear normal. No abnormal fluid or soft tissue density. Inner ear: Inner ear is normally formed and appears unremarkable. Facial nerve appears normal throughout its course. Mastoids: Mastoid air cells are clear. MISCELLANEOUS: Visualized surrounding bones appear unremarkable. Visualized intracranial structures, including the cerebellopontine angle cisterns, appear normal. IMPRESSION: Unremarkable exam. MDM Narrative Medical decision making narrative: 49-year-old female with a past medical history of diabetes hyperlipidemia hypertension hypothyroidism MS, comes in for abnormal lab work, she states that she had outside lab work performed that showed an elevated WBC at 14. To note she states that she is currently on cefdinir and Keflex for possible ear infection. To note patient has been on 40 mg prednisone for the past 5 days, finished last dose yesterday. She denies any other symptoms at this time, she is just worried that there might be a ?infection brewing. Patient had lab work drawn here as well as blood cultures. Patient's lab work here does show patient with elevated WBC at 16.4., Chem panel unremarkable, urinalysis not consistent acute urinary tract infection 3: Patient re-evaluated no new complaints at this time, she states that she would like to have additional lab work after additional 1 L normal saline, 06/19/24 @ 0107: Patient re-evaluated no new complaints at this time, informed her that her lab work (leukocytosis) after 2 L normal saline has improved from 16.4-13.7, CT scan without any acute intra abdominal abnormalities, CT scan did show generalized inflammatory changes of the present level of the pannus without abscess or acute abnormalities, we will give patient dose of IV antibiotics here per patient's request, she states that she still has oral antibiotics, cefdinir and doxycycline at home, she states that she normally has baseline elevated leukocytosis, states normally at 11. patient was given strict return precautions was instructed to follow up with her primary care doctor and her specialist in outpatient setting she verbalized understanding of this and agrees to being discharged home with outpatient follow up. Discharge Plan Departure Patient Disposition: Home Clinical Impression: Leukocytosis Activity Restrictions/Additional Instructions: Please follow up with your primary care doctor and your specialists in outpatient setting Please read the discharge instructions sheet carefully and bring all papers to all doctor follow-up visits, as it may contain information that your doctor may want to see. Disease processes change and evolve, if your symptoms worsen or if you develop any new symptoms that are concerning to you please return for evaluation. Your evaluation today does not show any evidence of any life-threatening/serious illnesses requiring admission to the hospital or surgery. Please follow-up with your doctor for re-evaluation in approximately 1 day. Seek immediate medical attention for any worrisome symptoms. *If you do not have a primary care provider please contact the [facility] Resource line at [phone]. They will ask some questions about your medical history and help get you set up with a doctor in the community. Prescriptions: No Action atorvastatin [Lipitor] 20 mg tablet 20 mg PO BEDTIME amitriptyline 10 mg tablet 10 mg PO ONCE PM omeprazole 40 mg capsule,delayed release(DR/EC) 40 mg PO DAILY metoprolol succinate 25 mg tablet extended release 24 hr 25 mg PO DAILY ergocalciferol (vitamin D2) 1,250 mcg (50,000 unit) capsule 1,250 mcg PO Humalog KwikPen Insulin 200 unit/mL (3 mL) insulin pen SUBCUT Patient Comments: [NO ORIGINAL SIG] clindamycin phosphate 1 % solution topical estradiol 0.05 mg/24 hr patch semiweekly 1 patch transdermal 2XW methylprednisolone 4 mg tablets,dose pack 0 mg PO albuterol sulfate 2.5 mg /3 mL (0.083 %) solution for nebulization inhalation cyanocobalamin (vitamin B-12) 1,000 mcg/mL solution 1,000 mcg IM MONTHLY clobetasol 0.05 % ointment topical leflunomide 10 mg tablet 10 mg PO DAILY erythromycin 5 mg/gram (0.5 %) ointment EYE-BOTH Sutab 1.479-0.188- 0.225 gram tablet 12 tab PO DIRECTED ofloxacin 0.3 % drops otic (ear) DAILY potassium chloride 10 mEq tablet,ER particles/crystals 10 meq PO DAILY amlodipine 10 mg tablet 10 mg PO DAILY levothyroxine 25 mcg tablet 25 mcg PO DAILY sodium,potassium,mag sulfates 17.5-3.13-1.6 gram recon soln PO gabapentin 100 mg capsule PO diazepam 5 mg tablet 5 mg PO DAILY PRN alprazolam 0.25 mg tablet 0.25 mg PO DAILY alprazolam 0.5 mg tablet 0.5 mg PO DAILY ondansetron 4 mg tablet,disintegrating 4 mg PO Q8H PRN ketoconazole 2 % cream topical oxcarbazepine 300 mg tablet 300 mg PO BID dexamethasone 1 mg tablet 1 mg PO ONCE fluconazole 150 mg tablet PO clobetasol 0.05 % shampoo 1 applic topical clindamycin phosphate 1 % lotion 1 applic topical BID (DME) Dexcom G6 Sensor Device See Rx Instructions .ROUTE Q10D Qty: 1 Rx Instructions: As directed tizanidine 2 mg tablet 4 mg PO BID oxycodone 5 mg tablet 5 mg PO Q6H PRN (Reason: pain) Qty: 10 0RF oxycodone 5 mg tablet 5 mg PO Q6H PRN (Reason: pain) Qty: 10 0RF oxycodone-acetaminophen 5-325 mg tablet 1 tab PO Q6H PRN (Reason: pain) Qty: 20 0RF azithromycin 250 mg tablet 250 mg PO DAILY 64 Days Qty: 4 0RF Rx Instructions: start on day 2 of therapy albuterol sulfate 90 mcg/actuation HFA aerosol inhaler 2 puff inhalation QID PRN (Reason: shortness of breath or wheezing) Qty: 8.5 0RF levothyroxine 200 mcg tablet 200 mcg PO DAILY topiramate 100 mg tablet 100 mg PO DAILY zolpidem 5 mg tablet 5 mg PO BEDTIME PRN (Reason: Insomnia) Patient Comments: TK 1 T PO AT NIGHT PRF INSOMNIA baclofen 10 mg tablet 20 mg PO BID PRN (Reason: Pain (Scale Score 1-3)) insulin aspart U-100 100 unit/mL (3 mL) insulin pen See Rx Instructions .ROUTE .COMPLEX Patient Comments: ADM 30 UNI SC TID WC Rx Instructions: has insulin pump. takes 1 unit of insulin per every 2 carbs. ibuprofen 800 mg tablet 600 mg PO Q8H PRN (Reason: pain) trazodone 50 mg Tablet 50 mg PO BEDTIME Rx Instructions: take one to two tablets at bed time up to 100mg by mouth potassium chloride 10 mEq Tablet Extended Release 30 meq PO DAILY leflunomide 20 mg Tablet 20 mg PO DAILY montelukast 10 mg Tablet 10 mg PO DAILY triamterene-hydrochlorothiazid 75-50 mg Tablet 1 tab PO DAILY meclizine 12.5 mg Tablet 12.5 mg PO Q6HR PRN (Reason: Vertigo) Qty: 20 0RF promethazine 25 mg Tablet 12.5 mg PO Q6HR PRN (Reason: NAUSEA/VOMITING) Qty: 20 0RF losartan 25 mg Tablet 25 mg PO DAILY Qty: 30 0RF oxycodone 5 mg Tablet 5 mg PO Q4HR PRN (Reason: Pain, Severe (7-10)) Qty: 10 0RF azithromycin 250 mg tablet See Rx Instructions PO .COMPLEX Qty: 6 0RF Rx Instructions: For 250 mg dose pack: take 500 mg today (day 1), then 250 mg for 4 days (days 2-5) hydrocodone-acetaminophen 5-325 mg tablet 1 tab PO Q6H PRN (Reason: pain) Qty: 10 0RF ondansetron 8 mg tablet,disintegrating 8 mg PO Q8H PRN (Reason: nausea and vomiting) Qty: 20 0RF dicyclomine 20 mg tablet 20 mg PO TID PRN (Reason: abdominal pain) Qty: 20 0RF Gvoke HypoPen 2-Pack 1 mg/0.2 mL auto-injector 1 mg SUBCUT ONCE Rx Instructions: as a single dose; may repeat once after 15 minutes if no response Mounjaro 2.5 mg/0.5 mL pen injector 2.5 mg SUBCUT QWEEK Veozah 45 mg tablet 45 mg PO DAILY furosemide [Lasix] 20 mg tablet 20 mg PO Q OTHER DAY doxycycline hyclate 100 mg capsule 100 mg PO BID Referrals: Ankur Joseph DO [Primary Care Provider] - Stand Alone Forms: Patient Portal/API/Survey
--- NOTE | 2024-06-18 18:35 | DI.CT.S_ITS ---
PROCEDURE: CT ABDOMEN PELVIS WO CON INDICATIONS: patient worried about previous umbilical mesh problem TECHNIQUE: Axial sections were acquired from the lung bases to the pubic symphysis. Coronal and sagittal reformats were performed. For radiation dose reduction, the following was used: automated exposure control, adjustment of mA and/or kV according to patient size. COMPARISON: [facility], CT, CT ANGIO ABD AORTA RUNOFF, 01/07/2024, 1:35. [facility], CT, CT ABDOMEN PELVIS WITHOUT CONTRAST, 04/11/2023, 17:56. FINDINGS: Image quality: Diagnostic. Lower Chest: Trace pericardial effusion, unchanged. URINARY: Right Kidney: No stones or hydronephrosis. Right Ureter: No hydroureter. Left Kidney: No stones or hydronephrosis. Left Ureter: No hydroureter. Bladder: Normal wall thickness. No stones. ABDOMEN: Liver: No contour-deforming solid mass. Steatosis. Gallbladder: Removed. Biliary ducts: No biliary dilation. Pancreas: No ductal dilation. Spleen: Size is within normal limits. Adrenal Glands: No adrenal nodules. Stomach and Bowel: Normal colonic caliber, without significant wall thickening. Peritoneum: No abnormal intraperitoneal fluid. No free air. Ventral Wall: Stable appearance the umbilical region without visualized hernia. Generalized inflammatory change is present at the level of pannus without abscess an overall relatively stable. Abdominal Nodes: No enlarged retroperitoneal or mesenteric lymph nodes. Vessels: Aorta and inferior vena cava are normal in size. PELVIS: Pelvic Organs: Unremarkable. Pelvic Nodes: Unremarkable. Miscellaneous: No inguinal hernias are seen. 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 Bones: Unremarkable. IMPRESSION: No visualized ventral hernia. Cholecystectomy. Dictated by: Maria Guadalupe Solis M.D. on 06/18/2024 at 20:16 Approved by: Maria Guadalupe Solis M.D. on 06/18/2024 at 20:20
--- NOTE | 2024-06-18 18:35 | DI.CT.S_ITS ---
PROCEDURE: CT MASTOID TEMPORAL INDICATIONS: patient with history of ear infection with tube COMPARISON: None. TECHNIQUE: Noncontrast 0.6 mm thick axial sections acquired through each temporal bone separately. Coronal images are reformatted. FINDINGS: Image quality: Excellent. RIGHT: External auditory canal: Canal has a normal appearance. Middle ear: The middle ear structures, including the ossicles and tympanic membrane, appear normal. No abnormal fluid or soft tissue density. Inner ear: Inner ear is normally formed and appears unremarkable. Facial nerve appears normal throughout is course. Mastoids: Mastoid air cells are clear. LEFT: External auditory canal: Canal has a normal appearance. Middle ear: The middle ear structures, including the ossicles and tympanic membrane, appear normal. No abnormal fluid or soft tissue density. Inner ear: Inner ear is normally formed and appears unremarkable. Facial nerve appears normal throughout its course. Mastoids: Mastoid air cells are clear. MISCELLANEOUS: Visualized surrounding bones appear unremarkable. Visualized intracranial structures, including the cerebellopontine angle cisterns, appear normal. IMPRESSION: Unremarkable exam. Dictated by: Maria Guadalupe Solis M.D. on 06/18/2024 at 20:15 Approved by: Maria Guadalupe Solis M.D. on 06/18/2024 at 20:16
--- NOTE | 2024-06-18 18:38 | DI.RAD.S_ITS ---
PROCEDURE: XR CHEST 1V INDICATIONS: elevated WBC TECHNIQUE: One view of the chest was acquired. COMPARISON: [facility], CR, XR CHEST 2V, 05/12/2024, 14:49. FINDINGS: Surgical changes and devices: None. Lungs and pleura: Lungs are clear. No pleural effusions or pneumothorax. Mediastinum: Mediastinal contours appear normal. Heart size is enlarged. Bones and chest wall: No suspicious bony lesions. Overlying soft tissues appear unremarkable. IMPRESSION: Cardiomegaly. No acute cardiopulmonary pathology. Dictated by: Rohan Richardson M.D. on 06/18/2024 at 20:16 Approved by: Rohan Richardson M.D. on 06/18/2024 at 20:16
[2024-06-18] MEDS: SODIUM CHLORIDE 0.9% 1,000 ML 1000 ML IV ×2 (18:54→21:56)
[2024-06-18 19:49] LABS: Lipase 30 U/L (23-300); Magnesium 1.8 mg/dL (1.6-2.3)
[2024-06-18 21:09] LABS: COVID-19 CEPHEID 4-PLEX PCR Negative (Negative); Influenza A - CEPHEID Flu A NEGATIVE (NEGATIVE); Influenza B - CEPHEID Flu B NEGATIVE (NEGATIVE); Respiratory Syncytial Virus Negative (Negative)
[2024-06-18 23:15] LABS: Add Manual Diff / Slide Review NO; Basophils Absolute Auto 100 /uL (0-100); Basophils Percent Auto 0.8 % (0-2); Eosinophils Absolute Auto 100 /uL (0-450); Eosinophils Percent Auto 1.1 % (2-4); Hematocrit 38.8 % (36-46); Hemoglobin 12.4 g/dL (12.0-16.0); Lymphocytes Absolute Auto 5700 /uL (1100-4500); Lymphocytes Percent Auto 41.5 % (25-40); Mean Corpuscular HGB Conc 31.9 % (30-36); Mean Corpuscular Hemoglobin 27.3 PG (26-34); Mean Corpuscular Volume 85.5 fL (80-100); Monocytes Absolute Auto 800 /uL (0-900); Monocytes Percent Auto 5.8 % (3-14); Neutrophils Absolute Auto 6900 /uL (1500-7000); Neutrophils Percent Auto 50.8 % (50-75); Platelet Count 274 X10^3/uL (150-400); Red Blood Cell Count 4.54 X10^6/uL (4.0-5.2); White Blood Cell Count 13.7 X10^3/uL (4.5-11.0)
[2024-06-19] VITALS (7 sets, daily range): BP systolic 130–146; BP diastolic 63–79; PULSE 85–95; RESP 18–20; O2SAT 95–98
[2024-06-19] MEDS: BACLOFEN 10 MG TABLET PO (01:16)
[2024-06-19] MEDS: PIPERACILLIN/TAZO 4.5 GM in SODIUM CHLORIDE 0.9% 100 ML IV (01:16)
--- NOTE | 2024-06-19 01:25 | PC.NURSE ---
Pt reports itchiness during infusion of piperacillin/tazo 4.5 at site of IV and ants on a line. Infusion stopped. IV flushed and checked. Site is normal in color without swelling or warmth. Good blood return. Provider Daryl made aware.
[2024-06-19] MEDS: diphenhydrAMINE 50 MG/ML VIAL 25 MG IV (01:36)
[2024-06-19] MEDS: VANCOMYCIN 2,000 MG/400 ML PIGGYBACK 200 MG IV (02:05)
== END 2024-06-19 04:32 | disposition home or self-care (01) ==
PROVIDERS: Emergency Medicine; Emergency Provider Student in an Organized Health Care Education/Training Program; PCP Internal Medicine
DX: D72.829 Elevated white blood cell count, unspecified (principal); E11.9 Type 2 diabetes mellitus without complications; E78.5 Hyperlipidemia, unspecified; I10 Essential (primary) hypertension; E03.9 Hypothyroidism, unspecified; G35 Multiple sclerosis
CPT/HCPCS: 0241U; 36415; 70480; 71045; 74176; 80053; 81003; 82962; 83690; 83735; 85025; 87040; 96361; 96365; 96366; 96367; 96375; 99284; J1200; J2543